=== PATIENT | female | born 1940 | race Caucasian/White ===

== ENCOUNTER 2016-09-02 16:51 | Inpatient (IN) | payer OTHER ==
[~2016-09-02] VITALS: Ht 175.3 cm; Wt 82.7 kg
[~2016-09-02 16:51] MED LIST: CALC-281; CHOL100010 PO; CYCL0.052; FLAX10007; LEVO88TA3; LISI-461; MTRCR45 TD; MULT-188 PO; MULT-884 PO; NRN100; OMG3
[2016-09-02] MEDS ORDERED: HYDROmorphone INJ 0.5 MG/0.5 ML SYR IV STA (17:20)
[2016-09-02] MEDS ORDERED: SODIUM CHLORIDE 0.9% 500ML 500 ML IV STA (17:20)
[2016-09-02] MEDS ORDERED: ONDANSETRON INJ 2 MG/ML 2 ML VIAL IV STA (17:20)
--- NOTE | 2016-09-02 17:30 | EMERGENCY ROOM VISIT NOTE ---
History Report prepared by Lizette: Madelin Figueroa Under the Supervision of: Dr. Radha Grissom M.D. First contact with patient: 17:08 Chief Complaint: VOMITING Stated Complaint: VOMITING History of Present Illness The patient is a 76 year old female who presents to the Emergency Room with complaints of persistent nausea and vomiting throughout the day today. She also had 3 episodes of diarrhea this morning. Currently, she has diffuse abdominal pain. The patient had similar symptoms 2 days ago for which she was evaluated in the [facility] emergency room. She had blood work, and EKG, and received 2 bags of fluid before being discharged from the ED. She was told that she would need an EGD in the future. She felt well yesterday but her symptoms returned today. She denies any blood in her stool or vomit. The patient still has her gallbladder. Her has not been ill with similar symptoms. The patient does not think that she has a GI virus, as she has had similar symptoms for several years on occasion but is usually able to control her symptoms. She does not have a history of diabetes, heart disease, or kidney disease, other than kidney stones. Denies chest pain, shortness of breath, or other complaints. Source of History: patient Onset: today Position: other (GI) Quality: other (vomiting) Timing: other (persistent) Associated Symptoms: + abdominal pain, + diarrhea, No SOB, No chest pain Review of Systems See HPI for pertinent positives & negatives. A total of 10 systems reviewed and were otherwise negative. Past Medical & Surgical Medical Problems: (1) Kidney stone (2) Lyme disease Family History No pertinent family history stated. Social History Smoking Status: Never Smoker Marital Status: Housing Status: lives with family Occupation Status: retired Current/Historical Medications Scheduled Aspirin (Aspirin Chewable), 81 MG PO MONTHLY Calcium Citrate-Vitamin D (Calcium Citrate W/Vitamin), DAILY Cyclosporine (Ophth) (Restasis), 1 DROP BID Levothyroxine Sodium (Levothyroxine Sodium), 88 MCG DAILY Lisinopril (Lisinopril), 10 MG DAILY Metronidazole Hcl (Metronidazole), 1 APPLN TD DAILY Multiple Vitamin (Multi Vitamin Daily), 1 TAB PO DAILY Multiple Vitamins W/ Minerals (Ocuvite), 1 TAB PO DAILY Probiotic Product (Probiotic), 1 CAP PO DAILY Scheduled PRN Ondansetron (Ondansetron HCl), 4 MG PO Q6 PRN for Nausea Allergies Coded Allergies: Morphine (Verified Allergy, Intermediate, RASH, 09/02/16) Hives Iodinated Diagnostic Agents (Verified Allergy, Unknown, RASH, 09/02/16) Latex1 -Allergic Contact Dermititis (Verified Allergy, Unknown, HIVES, ) Physical Exam Vital Signs Date Time Temp Pulse Resp B/P Pulse Ox O2 Delivery O2 Flow Rate FiO2 09/02/16 18:58 62 15 151/94 98 Room Air 09/02/16 17:49 78 09/02/16 16:55 36.9 96 18 174/87 95 Room Air Physical Exam Vital signs reviewed. General: Well-appearing 76 year old female, in no significant distress. HEENT: No scleral icterus, PERRLA, neck supple. Atraumatic. Cardiovascular: Regular rate and rhythm, no extra sounds. Pulmonary: Clear to auscultation bilaterally, normal work of breathing. Abdomen: Soft, epigastric abdominal tenderness, nondistended, positive bowel sounds. Musculoskeletal: Atraumatic, no peripheral edema. Neurologic: Patient awake alert and oriented x 3, full strength in all 4 extremities. Cranial nerves 2 through 12 grossly intact. Skin: Warm, dry, no rash Medical Decision & Procedures ER Provider Diagnostic Interpretation: X-ray results as stated below per my interpretation and radiologist interpretation. Other radiology results as stated below per my review and radiologist interpretation: CHEST ONE VIEW PORTABLE CLINICAL HISTORY: vomiting COMPARISON STUDY: 10/31/2014 FINDINGS: The heart is enlarged. There is a calcified left lower lobe granuloma. There is a large hiatal hernia. There is no lobar consolidation. There is no overt failure. There is no free intraperitoneal air.[ IMPRESSION: Large hiatal hernia. No evidence of failure. No evidence of focal pulmonary consolidation. Electronically signed by: Jun Francis M.D. 09/02/2016 6:14 PM Dictated Date/Time: 09/02/2016 6:13 PM BILIARY ULTRASOUND CLINICAL HISTORY: Vomiting and epigastric pain. COMPARISON STUDY: No previous studies for comparison. FINDINGS: No focal hepatic masses are visualized. No gallstones are visualized. There is no gallbladder wall thickening. There is no ductal dilatation. The common bile duct measures 5 mm. The pancreas was poorly visualized. The entire body and tail were obscured. There is right-sided hydronephrosis. There is a millimeter right renal cortical cyst. IMPRESSION: 1. Ultrasonographically normal gallbladder. No ductal dilatation 2. Nondiagnostic evaluation of the pancreas 3. Mild right-sided hydronephrosis Electronically signed by: Jun Francis M.D. 09/02/2016 6:58 PM Dictated Date/Time: 09/02/2016 6:[address] ABD/PELVIS IV CONTRAST ONLY CLINICAL HISTORY: Vomiting and epigastric pain. Hepatitis. COMPARISON STUDY: Biliary ultrasound dated 09/02/2016 TECHNIQUE: Following the IV administration of 116 mL of Optiray-320, CT scan of the abdomen and pelvis was performed from the lung bases to the proximal femurs. Images are reviewed in the axial, sagittal, and coronal planes. IV contrast was administered without complication. CT DOSE: 647.42 mGy.cm FINDINGS: Lower chest: There is a large hiatal hernia with a para esophageal component. There is evidence for granulomatous calcifications in the left lower lobe and hilum. Liver: The contrast-enhanced liver is normal in size, contour, and attenuation. There is no intrahepatic biliary ductal dilatation. The hepatic veins and portal veins are patent. Gallbladder: Unremarkable. Spleen: Normal in size and attenuation. Pancreas: No pancreatic masses are visualized. There is infiltration the fat surrounding the pancreatic tail. While this most likely represents acute pancreatitis, diverticulitis of the adjacent proximal descending colon could appear similar. Adrenal glands: Unremarkable. Kidneys: No solid renal masses are visualized. Bilateral parapelvic cysts are suspected Bowel: There is colonic diverticulosis. There is moderate sigmoid wall thickening, likely secondary to peridiverticular muscular hypertrophy. Minimal sigmoid diverticulitis cannot be excluded. As described above, there is infiltration of the fat adjacent the proximal descending colon. The appendix appears normal Peritoneum: There is no free air. There is no ascites. There is a fat-containing umbilical hernia. Vasculature: The abdominal aorta is normal in course and caliber. Adenopathy: None. Pelvic viscera: There are several uterine fibroids several which are calcified Skeletal structures: There are several vertebral body hemangiomas. IMPRESSION: 1. Infiltration of the fat surrounding the pancreatic tail. While this mostly likely represents acute pancreatitis, diverticulitis of the adjacent proximal descending colon could appear similar 2. Extensive sigmoid diverticulosis with bowel wall thickening. Minimal diverticulitis cannot be excluded 3. No evidence of bowel obstruction. No evidence of free air 4. Normal appendix 5. Uterine fibroids 6. Large hiatal hernia with a para esophageal component Electronically signed by: Jun Francis M.D. 09/02/2016 8:34 PM Dictated Date/Time: 09/02/2016 8:25 PM Laboratory Results 09/02/16 17:58 Red Blood Count 4.15, Mean Corpuscular Volume 96.9, Mean Corpuscular Hemoglobin 31.8, Mean Corpuscular Hemoglobin Concent 32.8, Mean Platelet Volume 9.9, Neutrophils (%) (Auto) 67.7, Lymphocytes (%) (Auto) 18.2, Monocytes (%) (Auto) 8.7, Eosinophils (%) (Auto) 4.5, Basophils (%) (Auto) 0.7, Neutrophils # (Auto) 5.72, Lymphocytes # (Auto) 1.54, Monocytes # (Auto) 0.74, Eosinophils # (Auto) 0.38, Basophils # (Auto) 0.06 Test 09/02/16 17:00 09/02/16 17:58 09/02/16 18:08 Urine Color YELLOW Urine Appearance CLEAR (CLEAR) Urine pH 7.0 (4.5-7.5) Urine Specific [place] 1.002 (1.000-1.030) Urine Protein NEG (NEG) Urine Glucose (UA) NEG (NEG) Urine Ketones TRACE (NEG) Urine Occult Blood TRACE (NEG) Urine Nitrite NEG (NEG) Urine Bilirubin NEG (NEG) Urine Urobilinogen NEG (NEG) Urine Leukocyte Esterase SMALL (NEG) Urine WBC (Auto) 1-5 /hpf (0-5) Urine RBC (Auto) 0-4 /hpf (0-4) Urine Hyaline Casts (Auto) 0 /lpf (0-5) Urine Epithelial Cells (Auto) 5-10 /lpf (0-5) Urine Bacteria (Auto) 1+ (NEG) White Blood Count 8.46 K/uL (4.8-10.8) Red Blood Count 4.15 M/uL (4.2-5.4) Hemoglobin 13.2 g/dL (12.0-16.0) Hematocrit 40.2 % (37-47) Mean Corpuscular Volume 96.9 fL (80-100) Mean Corpuscular Hemoglobin 31.8 pg (25-34) Mean Corpuscular Hemoglobin Concent 32.8 g/dl (32-36) Platelet Count 321 K/uL (130-400) Mean Platelet Volume 9.9 fL (7.4-10.4) Neutrophils (%) (Auto) 67.7 % Lymphocytes (%) (Auto) 18.2 % Monocytes (%) (Auto) 8.7 % Eosinophils (%) (Auto) 4.5 % Basophils (%) (Auto) 0.7 % Neutrophils # (Auto) 5.72 K/uL (1.4-6.5) Lymphocytes # (Auto) 1.54 K/uL (1.2-3.4) Monocytes # (Auto) 0.74 K/uL (0.11-0.59) Eosinophils # (Auto) 0.38 K/uL (0-0.5) Basophils # (Auto) 0.06 K/uL (0-0.2) RDW Standard Deviation 47.5 fL (36.4-46.3) RDW Coefficient of Variation 13.3 % (11.5-14.5) Immature Granulocyte % (Auto) 0.2 % Immature Granulocyte # (Auto) 0.02 K/uL (0.00-0.02) Total Bilirubin 0.3 mg/dl (0.2-1) Direct Bilirubin < 0.1 mg/dl (0-0.2) Aspartate Amino Transf (AST/SGOT) 13 U/L (15-37) Alanine Aminotransferase (ALT/SGPT) 16 U/L (12-78) Alkaline Phosphatase 52 U/L (45-117) Total Creatine Kinase 70 U/L (26-192) Creatine Kinase MB 1.5 ng/ml (0.5-3.6) Creatine Kinase MB Ratio 2.1 (0-3.0) Total Protein 6.4 gm/dl (6.4-8.2) Albumin 3.2 gm/dl (3.4-5.0) Bedside Troponin I 0.020 ng/ml (0-0.045) Date/Time Source Procedure Growth Status 09/02/16 17:00 Urine , Clean Catch Urine Culture - Final Escherichia Coli Complete Laboratory results per my review. Medications Administered Medications (Trade) Dose Ordered Sig/[place] Route Start Time Stop Time Status Last Admin Dose Admin Sodium Chloride 500 ml @ 999 mls/hr Q31M STAT IV 1/20/17 17:20 09/02/16 17:50 DC 09/02/16 18:00 999 MLS/HR Sodium Chloride (Nss 1000ml) 1,000 ml @ 125 mls/hr Q8H STAT IV 09/02/16 17:20 09/02/16 23:19 DC 09/02/16 18:30 125 MLS/HR Ondansetron HCl (Zofran Inj) 4 mg NOW STAT IV 09/02/16 17:20 09/02/16 17:26 DC 09/02/16 17:59 4 MG Hydromorphone HCl (Dilaudid Inj) 0.5 mg NOW STAT IV 09/02/16 17:20 09/02/16 17:26 DC 09/02/16 17:59 0.5 MG Diphenhydramine HCl (Benadryl Inj) 50 mg NOW STAT IV 09/02/16 19:03 09/02/16 19:05 DC 09/02/16 19:14 50 MG Methylprednisolone Sodium Succinate (Solu-Medrol IV) 125 mg NOW STAT IV 09/02/16 19:03 09/02/16 19:05 DC 09/02/16 19:14 125 MG ECG Indication: vomiting Rate (beats per minute): 80 Rhythm: normal sinus Findings: no acute ischemic change, no ectopy ED Course 1717: The patient was evaluated in room B8. A complete history and physical examination was performed. 1720: Ordered Dilaudid Inj 0.5 mg IV, Zofran Inj 4 mg IV, NSS 1000 ml @ 125 mls/ hr IV, NSS 500 ml @ 999 mls/hr IV. 3: Ordered Solu-Medrol 125 mg IV, Benadryl Inj 50 mg IV. 5: I reassessed the patient and updated her on results so far. 2023: I discussed the case with Dr. Bishnu Vizcaino [facility]. The patient will be evaluated for further management. 2030: Upon reevaluation, the patient is resting comfortably. I discussed laboratory and radiographic results with the patient. She verbalized agreement of the treatment plan. Medical Decision Differential diagnosis: Etiologies such as gastroenteritis, food borne illness, infections, appendicitis , diverticulitis, inflammatory bowel disease, obstruction, GI bleed, biliary pathology, as well as others were entertained. This pt was evaluated and appeared to be in no distress. IV access was obtained and lab work was drawn. PT was placed on the telephone services sales representative. She was hydrated with NSS and given IV dilaudid and zofran. Pt was medicated with IV solumedral and IV benadryl pre-CT for her allergy to IV contrast. Lab work reveals elevated lipase of 9058. CT was significant for infiltration of the pancreas. She was informed of the findings and will be evaluated by the hospitalist service for admission and further management. Consults Time Called: 2010 Consulting Physician: Dr. Bishnu Vizcaino [facility] Returned Call: 2023 I discussed the case with him. The patient will be evaluated for further management. Impression Primary Impression: Acute pancreatitis Additional Impression: Hiatal hernia Scribe Attestation The scribe's documentation has been prepared under my direction and personally reviewed by me in its entirety. I confirm that the note above accurately reflects all work, treatment, procedures, and medical decision making performed by me. Departure Information Dispostion Being Evaluated By Hospitalist Referrals ,Rob Cline M.D. (PCP) Patient Instructions My [facility] Problem Qualifiers Primary Impression: Acute pancreatitis Pancreatitis type: idiopathic Acute pancreatitis complication: unspecified Qualified Codes: K85.00 - Idiopathic acute pancreatitis without necrosis or infection
[2016-09-02] MEDS: SODIUM CHLORIDE 0.9% 1000ML 1,000 ML IV STA ×2 (18:00→18:30)
--- NOTE | 2016-09-02 18:15 | DIAGNOSTIC IMAGING REPORT ---
CHEST ONE VIEW PORTABLE CLINICAL HISTORY: vomiting COMPARISON STUDY: 10/31/2014 FINDINGS: The heart is enlarged. There is a calcified left lower lobe granuloma. There is a large hiatal hernia. There is no lobar consolidation. There is no overt failure. There is no free intraperitoneal air.[ IMPRESSION: Large hiatal hernia. No evidence of failure. No evidence of focal pulmonary consolidation. Electronically signed by: Jun Francis M.D. 09/02/2016 6:14 PM Dictated Date/Time: 09/02/2016 6:13 PM
[2016-09-02 18:16] LABS: BASO % 0.7 %; BASO ABS # 0.06 K/uL (0-0.2); COMPLETE YES; EOS % 4.5 %; HEMATOCRIT 40.2 % (37-47); IG% 0.2 %; LYMPH % 18.2 %; LYMPH ABS # 1.54 K/uL (1.2-3.4); MEAN CELL VOLUME 96.9 fL (80-100); MEAN CORPUSCULAR HEMOGLOBIN 31.8 pg (25-34); MEAN CORPUSCULAR HGB CONC 32.8 g/dl (32-36); MEAN PLATELET VOLUME 9.9 fL (7.4-10.4); MONO % 8.7 %; NEUT % 67.7 %; PLATELET COUNT 321 K/uL (130-400); RED BLOOD COUNT 4.15 M/uL (4.2-5.4); WHITE BLOOD COUNT 8.46 K/uL (4.8-10.8)
[2016-09-02 18:36] LABS: BLOOD UREA NITROGEN 15 mg/dl (7-18); CREATININE 0.58 mg/dl (0.60-1.20); GLUCOSE 148 mg/dl (70-99)
[2016-09-02 18:37] LABS: ALT/SGPT 16 U/L (12-78); BUN/CREATININE RATIO 25.9 (10-20); CALCIUM 8.9 mg/dl (8.5-10.1); CARBON DIOXIDE 24 mmol/L (21-32); CHLORIDE 108 mmol/L (98-107); POTASSIUM 3.5 mmol/L (3.5-5.1); SODIUM 144 mmol/L (136-145)
[2016-09-02 18:40] LABS: ALKALINE PHOSPHATASE 52 U/L (45-117); AST/SGOT 13 U/L (15-37); CKMB/CK RATIO 2.1 (0-3.0)
--- NOTE | 2016-09-02 19:00 | DIAGNOSTIC IMAGING REPORT ---
BILIARY ULTRASOUND CLINICAL HISTORY: Vomiting and epigastric pain. COMPARISON STUDY: No previous studies for comparison. FINDINGS: No focal hepatic masses are visualized. No gallstones are visualized. There is no gallbladder wall thickening. There is no ductal dilatation. The common bile duct measures 5 mm. The pancreas was poorly visualized. The entire body and tail were obscured. There is right-sided hydronephrosis. There is a millimeter right renal cortical cyst. IMPRESSION: 1. Ultrasonographically normal gallbladder. No ductal dilatation 2. Nondiagnostic evaluation of the pancreas 3. Mild right-sided hydronephrosis Electronically signed by: Jun Francis M.D. 09/02/2016 6:58 PM Dictated Date/Time: 09/02/2016 6:56 PM
[2016-09-02] MEDS ORDERED: METHYLPREDNISOLONE 125 MG VIAL IV STA (19:03)
[2016-09-02] MEDS ORDERED: DiphenhydrAMINE HCL 50 MG/ML VIAL IV STA (19:03)
[2016-09-02 19:10] LABS: URINE APPEARANCE CLEAR (CLEAR); URINE BILIRUBIN NEG (NEG); URINE COLOR YELLOW; URINE NITRITE NEG (NEG); URINE SPECIFIC GRAVITY 1.002 (1.000-1.030); UROBILINOGEN NEG (NEG); ZZUR CULT IF INDIC CLEAN CATCH YES
[2016-09-02 19:14] LABS: MANUAL MICROSCOPIC REQUIRED? NO; REVIEW REQ? NO
[2016-09-02] MEDS ORDERED: OPTIRAY 320 IV PRN (19:15)
--- NOTE | 2016-09-02 20:36 | DIAGNOSTIC IMAGING REPORT ---
CT ABD/PELVIS IV CONTRAST ONLY CLINICAL HISTORY: Vomiting and epigastric pain. Hepatitis. COMPARISON STUDY: Biliary ultrasound dated 09/02/2016 TECHNIQUE: Following the IV administration of 116 mL of Optiray-320, CT scan of the abdomen and pelvis was performed from the lung bases to the proximal femurs. Images are reviewed in the axial, sagittal, and coronal planes. IV contrast was administered without complication. CT DOSE: 647.42 mGy.cm FINDINGS: Lower chest: There is a large hiatal hernia with a para esophageal component. There is evidence for granulomatous calcifications in the left lower lobe and hilum. Liver: The contrast-enhanced liver is normal in size, contour, and attenuation. There is no intrahepatic biliary ductal dilatation. The hepatic veins and portal veins are patent. Gallbladder: Unremarkable. Spleen: Normal in size and attenuation. Pancreas: No pancreatic masses are visualized. There is infiltration the fat surrounding the pancreatic tail. While this most likely represents acute pancreatitis, diverticulitis of the adjacent proximal descending colon could appear similar. Adrenal glands: Unremarkable. Kidneys: No solid renal masses are visualized. Bilateral parapelvic cysts are suspected Bowel: There is colonic diverticulosis. There is moderate sigmoid wall thickening, likely secondary to peridiverticular muscular hypertrophy. Minimal sigmoid diverticulitis cannot be excluded. As described above, there is infiltration of the fat adjacent the proximal descending colon. The appendix appears normal Peritoneum: There is no free air. There is no ascites. There is a fat-containing umbilical hernia. Vasculature: The abdominal aorta is normal in course and caliber. Adenopathy: None. Pelvic viscera: There are several uterine fibroids several which are calcified Skeletal structures: There are several vertebral body hemangiomas. IMPRESSION: 1. Infiltration of the fat surrounding the pancreatic tail. While this mostly likely represents acute pancreatitis, diverticulitis of the adjacent proximal descending colon could appear similar 2. Extensive sigmoid diverticulosis with bowel wall thickening. Minimal diverticulitis cannot be excluded 3. No evidence of bowel obstruction. No evidence of free air 4. Normal appendix 5. Uterine fibroids 6. Large hiatal hernia with a para esophageal component Electronically signed by: Jun Francis M.D. 09/02/2016 8:34 PM Dictated Date/Time: 09/02/2016 8:25 PM
[2016-09-02] MEDS ORDERED: ALUMINUM/MAGNESIUM/SIMETH (MAALOX MAX) 30 ML UDC PO PRN (20:45)
[2016-09-02] MEDS ORDERED: POLYETHYLENE (MIRALAX) 17 GM PACK PO PRN (20:45)
[2016-09-02] MEDS ORDERED: HYDROmorphone INJ 1 MG/ML SYR IV PRN (20:45)
[2016-09-02] MEDS ORDERED: ONDANSETRON INJ 2 MG/ML 2 ML VIAL IV PRN (20:45)
[2016-09-02] MEDS ORDERED: ACETAMINOPHEN 325 MG TAB PO PRN (20:45)
[2016-09-02] MEDS ORDERED: MAGNESIUM HYDROXIDE SUSP 30 ML UDC PO PRN (20:45)
[2016-09-02] MEDS ORDERED: MISCCAP80 PO (20:51)
[2016-09-02] MEDS ORDERED: ONDA4TAB9 PO (20:51)
[2016-09-02] MEDS ORDERED: ASPCH81X PO (20:51)
--- NOTE | 2016-09-02 20:51 | History and Physical ---
History & Physical Date & Time of Service: Sep 02, 2016 at 20:40 Chief Complaint: Vomiting Primary Care Physician: Rob Mayers M.D. History of Present Illness Source: patient 76 y/o F Hx HTN, HPL - the pt presented to [facility] with symptoms of nausea and abdominal pain and was treated symptomatically and D/Cd from the ER. Her symptoms worsened and she presented to [facility] for evaluation. She c/o moderate to severe upper abdominal pain, nausea and vomiting. She denies diarrhea, CP, SOB, fevers, dysuria. On further questioning she states that she has been having episodes of similar symptoms for 2 years and she normally treats herself by abstaining form food and increasing fluid intake for a couple of days. Past Medical/Surgical History Medical Problems: (1) Kidney stone Status: Chronic (2) Lyme disease Status: Chronic Social History Smoking Status: Never Smoker Marital Status: Occupational Status: retired Allergies Coded Allergies: Morphine (Verified Allergy, Intermediate, RASH, 09/02/16) Hives Iodinated Diagnostic Agents (Verified Allergy, Unknown, RASH, 09/02/16) Latex1 -Allergic Contact Dermititis (Verified Allergy, Unknown, HIVES, ) Home Medications Scheduled Aspirin (Aspirin Chewable), 81 MG PO MONTHLY Calcium Citrate-Vitamin D (Calcium Citrate W/Vitamin), DAILY Cyclosporine (Ophth) (Restasis), 1 DROP BID Levothyroxine Sodium (Levothyroxine Sodium), 88 MCG DAILY Lisinopril (Lisinopril), 10 MG DAILY Metronidazole Hcl (Metronidazole), 1 APPLN TD DAILY Multiple Vitamin (Multi Vitamin Daily), 1 TAB PO DAILY Multiple Vitamins W/ Minerals (Ocuvite), 1 TAB PO DAILY Probiotic Product (Probiotic), 1 CAP PO DAILY Scheduled PRN Ondansetron (Ondansetron HCl), 4 MG PO Q6 PRN for Nausea Review of Systems Constitutional: No chills, No fever, No sweats Eyes: No eye pain, No worsening of vision ENT: No hearing loss, No nasal symptoms, No unusual epistaxis Respiratory: No cough, No sputum, No wheezing Cardiovascular: No PND, No chest pain, No orthopnea Abdomen: + nausea, + pain, + vomiting Musculoskeletal: No joint pain, No muscle pain Genitourinary - Female: No dysuria, No hematuria, No urinary frequency, No urinary incontinence, No urinary retention, No urinary urgency Neurologic: No memory loss, No paralysis, No weakness Psychiatric: No depression symptoms Endocrine: No fatigue Hematologic / Lymphatic: No abnormal bleeding/bruising Integumentary: No rash Allergic / Immunologic: No environmental allergies Physical Exam Vital Signs Date Time Temp Pulse Resp B/P Pulse Ox O2 Delivery O2 Flow Rate FiO2 09/02/16 18:58 62 15 151/94 98 Room Air 09/02/16 17:49 78 09/02/16 16:55 36.9 96 18 174/87 95 Room Air General Appearance: WD/WN, no apparent distress Head: normocephalic, atraumatic Eyes: normal inspection, PERRL, EOMI ENT: normal ENT inspection, hearing grossly normal, TMs normal, pharynx normal Neck: supple, no adenopathy, thyroid normal, no JVD Respiratory/Chest: chest non-tender, lungs clear, normal breath sounds, no respiratory distress, no accessory muscle use Cardiovascular: regular rate, rhythm, no edema, no gallop Abdomen/GI: soft, + tenderness (Diffuse upper abdominal tenderness - no guarding) Back: normal inspection, no CVA tenderness Extremities/Musculoskelatal: normal inspection, no calf tenderness, normal capillary refill, no pedal edema, normal range of motion 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, no motor/sensory deficits, alert, normal mood/affect, normal reflexes, oriented x 3 Skin: normal color, warm/dry, no rash Lymphatic: no adenopathy Diagnostics Laboratory Results Results Past 24 Hours Test 09/02/16 17:00 09/02/16 17:58 09/02/16 18:08 Range/Units Urine Color YELLOW Urine Appearance CLEAR CLEAR Urine pH 7.0 4.5-7.5 Urine Specific [place] 1.002 1.000-1.030 Urine Protein NEG NEG Urine Glucose (UA) NEG NEG Urine Ketones TRACE NEG Urine Occult Blood TRACE NEG Urine Nitrite NEG NEG Urine Bilirubin NEG NEG Urine Urobilinogen NEG NEG Urine Leukocyte Esterase SMALL NEG Urine WBC (Auto) 1-5 0-5 /hpf Urine RBC (Auto) 0-4 0-4 /hpf Urine Hyaline Casts (Auto) 0 0-5 /lpf Urine Epithelial Cells (Auto) 5-10 0-5 /lpf Urine Bacteria (Auto) 1+ NEG White Blood Count 8.46 4.8-10.8 K/uL Red Blood Count 4.15 4.2-5.4 M/uL Hemoglobin 13.2 12.0-16.0 g/dL Hematocrit 40.2 37-47 % Mean Corpuscular Volume 96.9 80-100 fL Mean Corpuscular Hemoglobin 31.8 25-34 pg Mean Corpuscular Hemoglobin Concent 32.8 32-36 g/dl Platelet Count 321 130-400 K/uL Mean Platelet Volume 9.9 7.4-10.4 fL Neutrophils (%) (Auto) 67.7 % Lymphocytes (%) (Auto) 18.2 % Monocytes (%) (Auto) 8.7 % Eosinophils (%) (Auto) 4.5 % Basophils (%) (Auto) 0.7 % Neutrophils # (Auto) 5.72 1.4-6.5 K/uL Lymphocytes # (Auto) 1.54 1.2-3.4 K/uL Monocytes # (Auto) 0.74 0.11-0.59 K/uL Eosinophils # (Auto) 0.38 0-0.5 K/uL Basophils # (Auto) 0.06 0-0.2 K/uL RDW Standard Deviation 47.5 36.4-46.3 fL RDW Coefficient of Variation 13.3 11.5-14.5 % Immature Granulocyte % (Auto) 0.2 % Immature Granulocyte # (Auto) 0.02 0.00-0.02 K/uL Sodium Level 144 136-145 mmol/L Potassium Level 3.5 3.5-5.1 mmol/L Chloride Level 108 98-107 mmol/L Carbon Dioxide Level 24 21-32 mmol/L Anion Gap 12.0 3-11 mmol/L Blood Urea Nitrogen 15 7-18 mg/dl Creatinine 0.58 0.60-1.20 mg/dl Est Creatinine Clear Calc Drug Dose 93.4 ml/min Estimated GFR () 103.0 Estimated GFR (Non- 88.9 BUN/Creatinine Ratio 25.9 10-20 Random Glucose 148 70-99 mg/dl Calcium Level 8.9 8.5-10.1 mg/dl Magnesium Level 2.0 1.8-2.4 mg/dl Total Bilirubin 0.3 0.2-1 mg/dl Direct Bilirubin < 0.1 0-0.2 mg/dl Aspartate Amino Transf (AST/SGOT) 13 15-37 U/L Alanine Aminotransferase (ALT/SGPT) 16 12-78 U/L Alkaline Phosphatase 52 45-117 U/L Total Creatine Kinase 70 26-192 U/L Creatine Kinase MB 1.5 0.5-3.6 ng/ml Creatine Kinase MB Ratio 2.1 0-3.0 Total Protein 6.4 6.4-8.2 gm/dl Albumin 3.2 3.4-5.0 gm/dl Lipase 9058 73-393 U/L Bedside Troponin I 0.020 0-0.045 ng/ml Microbiology Results 09/02/16 Urine Culture, Received Pending Impression Assessment and Plan 76 y/o F Hx HTN, HPL - the pt presented to [facility] with symptoms of nausea and abdominal pain and was treated symptomatically and D/Cd from the ER. Her symptoms worsened and she presented to [facility] for evaluation. She c/o moderate to severe upper abdominal pain, nausea and vomiting. She denies diarrhea, CP, SOB, fevers, dysuria. 1) Pancreatitis - no clear etiology - Pt will be kept NPO, provided with IVF, pain control and antiemetics as needed - currently there does not appear to be evidence of obstruction however she states that she has had similar episodes over the past 2 years so that we will consult GI for what may be chronic or recurrent pancreatitis 2) HTN - Cont Lisinopril 3) HPL - Normally takes fish oil - held pending improvement 4) Hypothyroid - cont Synthroid Full code - heparin prophylaxis Total time for this admit including med rec - review of labs, imaging, previous records - discussion with ER MD and pt - 32 min Level of Care Med/Surg Resuscitation Status FULL RESUSCITATION VTE Prophylaxis VTE Risk Assessment Done? Y/N: Yes Risk Level: Low Given or contraindicated: Unfractionated heparin SQ
[2016-09-02] MEDS ORDERED: NON-FORMULARY MEDICATION (Cyclosporine (Ophth) (Restasis) 1 DROP) SCH (21:00)
[2016-09-02] MEDS: GABAPENTIN 100 MG CAP PO SCH (21:00)
[2016-09-02] MEDS ORDERED: LORAZEPAM 2 MG/ML 1 ML VIAL IV STA (21:31)
[2016-09-02] MEDS ORDERED: LORAZEPAM INJ 0.5 MG in SYRINGE 0.75 ML IV ONE (22:30)
[2016-09-02 22:43] VITALS: BP 161/81; PULSE 71; TEMP 36.5; O2SAT 91; Ht 175.3 cm; Wt 82.7 kg
[2016-09-02 23:21] VITALS: BP 144/83; PULSE 73; TEMP 36.3; O2SAT 92
[2016-09-02] MEDS: NSS + 20MEQ KCL 1000ML 1,000 ML IV SCH (23:33)
[2016-09-03 01:03] LABS: PROTHROMBIN TIME (PATIENT) 10.4 SECONDS (9.0-12.0)
[2016-09-03] MEDS: HEPARIN SOD 5000 UNIT/0.5 ML CARP SQ SCH ×3 (06:00→20:32)
[2016-09-03] MEDS: LEVOTHYROXINE 88 MCG TAB PO SCH (06:19)
[2016-09-03 07:18] VITALS: BP 141/83; PULSE 65; TEMP 36.3; O2SAT 97
[2016-09-03 07:43] LABS: PROTHROMBIN TIME (PATIENT) 10.7 SECONDS (9.0-12.0)
[2016-09-03] MEDS: NSS + 20MEQ KCL 1000ML 1,000 ML IV SCH (07:50)
[2016-09-03] MEDS: LISINOPRIL 10 MG TAB PO SCH (07:51)
[2016-09-03] MEDS: GABAPENTIN 100 MG CAP PO SCH ×2 (07:52→20:28)
[2016-09-03] MEDS ORDERED: INFLUENZA VIRUS QUAD VACCINE 0.5 ML SYR IM. ONE (08:00)
[2016-09-03] MEDS ORDERED: INFLUENZA ADMINISTRATION CHARGE ONE (08:00)
[2016-09-03] MEDS ORDERED: PNEUMOCOCCAL ADMINISTRATION CHARGE ONE (08:00)
[2016-09-03] MEDS ORDERED: PNEUMOCOCCAL POLYSACCHARIDES 25 MCG/0.5 ML VIAL/SYR IM. ONE (08:00)
[2016-09-03 08:03] LABS: BUN/CREATININE RATIO 19.4 (10-20); CALCIUM 9.3 mg/dl (8.5-10.1); CREATININE 0.53 mg/dl (0.60-1.20); POTASSIUM 4.3 mmol/L (3.5-5.1)
--- NOTE | 2016-09-03 13:25 | Hospitalist Progress Note ---
Hospitalist Progress Note Date of Service Sep 03, 2016. Subjective Pt evaluation today including: conversation w/ patient, conversation w/ family , physical exam, chart review, lab review, review of studies, review of inpatient medication list overnight doing ok, no acute events, no nausea, no vomiting. Objective Vital Signs Date Time Temp Pulse Resp B/P Pulse Ox O2 Delivery O2 Flow Rate FiO2 09/03/16 08:00 Room Air 09/03/16 07:18 36.3 65 20 141/83 97 09/03/16 00:00 Room Air 09/02/16 23:21 36.3 73 18 144/83 92 Room Air 09/02/16 22:43 36.5 71 18 161/81 91 Room Air 09/02/16 21:40 67 16 164/88 97 Room Air 09/02/16 18:58 62 15 151/94 98 Room Air 09/02/16 17:49 78 09/02/16 16:55 36.9 96 18 174/87 95 Room Air Physical Exam General Appearance: no apparent distress Eyes: normal inspection ENT: normal ENT inspection Neck: supple Respiratory/Chest: chest non-tender, normal breath sounds Cardiovascular: regular rate, rhythm, no edema Abdomen: normal bowel sounds, non tender Extremities: normal range of motion Neurologic/Psychiatric: no motor/sensory deficits Skin: normal color Laboratory Results Last 24 Hours Test 09/02/16 17:00 09/02/16 17:58 09/02/16 18:08 09/03/16 07:22 Urine Color YELLOW Urine Appearance CLEAR Urine pH 7.0 Urine Specific [place] 1.002 Urine Protein NEG Urine Glucose (UA) NEG Urine Ketones TRACE Urine Occult Blood TRACE Urine Nitrite NEG Urine Bilirubin NEG Urine Urobilinogen NEG Urine Leukocyte Esterase SMALL Urine WBC (Auto) 1-5 /hpf Urine RBC (Auto) 0-4 /hpf Urine Hyaline Casts (Auto) 0 /lpf Urine Epithelial Cells (Auto) 5-10 /lpf Urine Bacteria (Auto) 1+ White Blood Count 8.46 K/uL Red Blood Count 4.15 M/uL Hemoglobin 13.2 g/dL Hematocrit 40.2 % Mean Corpuscular Volume 96.9 fL Mean Corpuscular Hemoglobin 31.8 pg Mean Corpuscular Hemoglobin Concent 32.8 g/dl Platelet Count 321 K/uL Mean Platelet Volume 9.9 fL Neutrophils (%) (Auto) 67.7 % Lymphocytes (%) (Auto) 18.2 % Monocytes (%) (Auto) 8.7 % Eosinophils (%) (Auto) 4.5 % Basophils (%) (Auto) 0.7 % Neutrophils # (Auto) 5.72 K/uL Lymphocytes # (Auto) 1.54 K/uL Monocytes # (Auto) 0.74 K/uL Eosinophils # (Auto) 0.38 K/uL Basophils # (Auto) 0.06 K/uL RDW Standard Deviation 47.5 fL RDW Coefficient of Variation 13.3 % Immature Granulocyte % (Auto) 0.2 % Immature Granulocyte # (Auto) 0.02 K/uL Prothrombin Time 10.4 SECONDS 10.7 SECONDS Prothromb Time International Ratio 1.0 1.0 Sodium Level 144 mmol/L 143 mmol/L Potassium Level 3.5 mmol/L 4.3 mmol/L Chloride Level 108 mmol/L 108 mmol/L Carbon Dioxide Level 24 mmol/L 24 mmol/L Anion Gap 12.0 mmol/L 11.0 mmol/L Blood Urea Nitrogen 15 mg/dl 10 mg/dl Creatinine 0.58 mg/dl 0.53 mg/dl Est Creatinine Clear Calc Drug Dose 93.4 ml/min 102.2 ml/min Estimated GFR () 103.0 106.1 Estimated GFR (Non- 88.9 91.6 BUN/Creatinine Ratio 25.9 19.4 Random Glucose 148 mg/dl 117 mg/dl Calcium Level 8.9 mg/dl 9.3 mg/dl Magnesium Level 2.0 mg/dl 2.0 mg/dl Total Bilirubin 0.3 mg/dl Direct Bilirubin < 0.1 mg/dl Aspartate Amino Transf (AST/SGOT) 13 U/L Alanine Aminotransferase (ALT/SGPT) 16 U/L Alkaline Phosphatase 52 U/L Total Creatine Kinase 70 U/L Creatine Kinase MB 1.5 ng/ml Creatine Kinase MB Ratio 2.1 Total Protein 6.4 gm/dl Albumin 3.2 gm/dl Lipase 9058 U/L 344 U/L Bedside Troponin I 0.020 ng/ml Assessment and Plan patient is 76 y/o F with PMH of HTN who presented to ER with symptoms of nausea and abdominal pain. She was found to have acute pancreatitis. 1 Pancreatitis - no history of gallbladder stone, no history of alcohol abuse. no clear etiology - pain is improving, start diet as tolerant, pain control and antiemetics as needed. Since patient states she has similar episodes during the past two years, would like to consult GI before discharge. 2) HTN - stable, Cont Lisinopril 3) HPL - Normally takes fish oil - held pending improvement 4) Hypothyroid - stable, cont Synthroid Full code DVT prophylaxis: heparin
[2016-09-03 15:15] VITALS: BP 159/79; PULSE 71; TEMP 36.5; O2SAT 97
[2016-09-03 16:02] VITALS: O2SAT 97
--- NOTE | 2016-09-03 16:08 | Medical Consult ---
Consultation Note Consultation Note Reason for consult: pancreatitis HPI: 76 yo female in [place] until mon, when she developed abrupt onset of severe upper abd pain rad to R shoulder and both flanks, assoc with intractable n/v. Pain lastsed 5 hours, seen at [facility] and [facility] with pancreatitis, then discharged with plans for outpt f/u. She had recurrence of pain on Monday, and was hosp here. Lipase markedly elevated on admission, CT showed pancreatitis of tail. She was given fluids, bowel rest, and analgesia overnight, and her pain is largely resolved. She is parisa clears and passing loose stool at present. She reports a h/o recurrent episodes of pain over the past 2 years occurring about once a month and lasting several hours. These episodes may be progressing. She denies alcohol or tobacco use. She has no FH gall stones. She has no FH panc ca. Past Medical/Surgical History Medical Problems: (1) Kidney stone Status: Chronic (2) Lyme disease Status: Chronic Social History Smoking Status: Never Smoker Marital Status: Occupational Status: retired Allergies Coded Allergies: Morphine (Verified Allergy, Intermediate, RASH, 09/02/16) Hives Iodinated Diagnostic Agents (Verified Allergy, Unknown, RASH, 09/02/16) Latex1 -Allergic Contact Dermititis (Verified Allergy, Unknown, HIVES, ) Home Medications Scheduled Aspirin (Aspirin Chewable), 81 MG PO MONTHLY Calcium Citrate-Vitamin D (Calcium Citrate W/Vitamin), DAILY Cyclosporine (Ophth) (Restasis), 1 DROP BID Levothyroxine Sodium (Levothyroxine Sodium), 88 MCG DAILY Lisinopril (Lisinopril), 10 MG DAILY Metronidazole Hcl (Metronidazole), 1 APPLN TD DAILY Multiple Vitamin (Multi Vitamin Daily), 1 TAB PO DAILY Multiple Vitamins W/ Minerals (Ocuvite), 1 TAB PO DAILY Probiotic Product (Probiotic), 1 CAP PO DAILY Scheduled PRN Ondansetron (Ondansetron HCl), 4 MG PO Q6 PRN for Nausea Review of Systems Constitutional: No chills, No fever, No sweats Eyes: No eye pain, No worsening of vision ENT: No hearing loss, No nasal symptoms, No unusual epistaxis Respiratory: No cough, No sputum, No wheezing Cardiovascular: No PND, No chest pain, No orthopnea Abdomen: + nausea, + pain, + vomiting Musculoskeletal: No joint pain, No muscle pain Genitourinary - Female: No dysuria, No hematuria, No urinary frequency, No urinary incontinence, No urinary retention, No urinary urgency Neurologic: No memory loss, No paralysis, No weakness Psychiatric: No depression symptoms Endocrine: No fatigue Hematologic / Lymphatic: No abnormal bleeding/bruising Integumentary: No rash Allergic / Immunologic: No environmental allergies Physical Ex - H&P Physical Exam Vital Signs Vital Signs Past 12 Hours Date Time Temp Pulse Resp B/P Pulse Ox O2 Delivery O2 Flow Rate FiO2 09/03/16 15:15 36.5 71 18 159/79 97 Room Air 09/03/16 08:00 Room Air 09/03/16 07:18 36.3 65 20 141/83 97 General Appearance: WD/WN, no apparent distress, sitting by empty lunch tray Head: normocephalic, atraumatic Eyes: normal inspection, PERRL, EOMI ENT: normal ENT inspection, hearing grossly normal, TMs normal, pharynx normal Neck: supple, no adenopathy, thyroid normal, no JVD Respiratory/Chest: chest non-tender, lungs clear, normal breath sounds, no respiratory distress, no accessory muscle use Cardiovascular: regular rate, rhythm, no edema, no gallop Abdomen/GI: soft, non tender Back: normal inspection, no CVA tenderness Extremities/Musculoskelatal: normal inspection, no calf tenderness, normal capillary refill, no pedal edema, normal range of motion 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, no motor/sensory deficits, alert, normal mood/affect, normal reflexes, oriented x 3 Skin: normal color, warm/dry, no rash Lymphatic: no adenopathy Diagnostics - H&P Diagnostics Laboratory Results Last 24 Hours Test 09/02/16 17:00 09/02/16 17:58 09/02/16 18:08 09/03/16 07:22 Urine Color YELLOW Urine Appearance CLEAR Urine pH 7.0 Urine Specific [place] 1.002 Urine Protein NEG Urine Glucose (UA) NEG Urine Ketones TRACE Urine Occult Blood TRACE Urine Nitrite NEG Urine Bilirubin NEG Urine Urobilinogen NEG Urine Leukocyte Esterase SMALL Urine WBC (Auto) 1-5 /hpf Urine RBC (Auto) 0-4 /hpf Urine Hyaline Casts (Auto) 0 /lpf Urine Epithelial Cells (Auto) 5-10 /lpf Urine Bacteria (Auto) 1+ White Blood Count 8.46 K/uL Red Blood Count 4.15 M/uL Hemoglobin 13.2 g/dL Hematocrit 40.2 % Mean Corpuscular Volume 96.9 fL Mean Corpuscular Hemoglobin 31.8 pg Mean Corpuscular Hemoglobin Concent 32.8 g/dl Platelet Count 321 K/uL Mean Platelet Volume 9.9 fL Neutrophils (%) (Auto) 67.7 % Lymphocytes (%) (Auto) 18.2 % Monocytes (%) (Auto) 8.7 % Eosinophils (%) (Auto) 4.5 % Basophils (%) (Auto) 0.7 % Neutrophils # (Auto) 5.72 K/uL Lymphocytes # (Auto) 1.54 K/uL Monocytes # (Auto) 0.74 K/uL Eosinophils # (Auto) 0.38 K/uL Basophils # (Auto) 0.06 K/uL RDW Standard Deviation 47.5 fL RDW Coefficient of Variation 13.3 % Immature Granulocyte % (Auto) 0.2 % Immature Granulocyte # (Auto) 0.02 K/uL Prothrombin Time 10.4 SECONDS 10.7 SECONDS Prothromb Time International Ratio 1.0 1.0 Sodium Level 144 mmol/L 143 mmol/L Potassium Level 3.5 mmol/L 4.3 mmol/L Chloride Level 108 mmol/L 108 mmol/L Carbon Dioxide Level 24 mmol/L 24 mmol/L Anion Gap 12.0 mmol/L 11.0 mmol/L Blood Urea Nitrogen 15 mg/dl 10 mg/dl Creatinine 0.58 mg/dl 0.53 mg/dl Est Creatinine Clear Calc Drug Dose 93.4 ml/min 102.2 ml/min Estimated GFR () 103.0 106.1 Estimated GFR (Non- 88.9 91.6 BUN/Creatinine Ratio 25.9 19.4 Random Glucose 148 mg/dl 117 mg/dl Calcium Level 8.9 mg/dl 9.3 mg/dl Magnesium Level 2.0 mg/dl 2.0 mg/dl Total Bilirubin 0.3 mg/dl Direct Bilirubin < 0.1 mg/dl Aspartate Amino Transf (AST/SGOT) 13 U/L Alanine Aminotransferase (ALT/SGPT) 16 U/L Alkaline Phosphatase 52 U/L Total Creatine Kinase 70 U/L Creatine Kinase MB 1.5 ng/ml Creatine Kinase MB Ratio 2.1 Total Protein 6.4 gm/dl Albumin 3.2 gm/dl Lipase 9058 U/L 344 U/L Bedside Troponin I 0.020 ng/ml Ultrasound FINDINGS: No focal hepatic masses are visualized. No gallstones are visualized. There is no gallbladder wall thickening. There is no ductal dilatation. The common bile duct measures 5 mm. The pancreas was poorly visualized. The entire body and tail were obscured. There is right-sided hydronephrosis. There is a millimeter right renal cortical cyst. IMPRESSION: 1. Ultrasonographically normal gallbladder. No ductal dilatation 2. Nondiagnostic evaluation of the pancreas 3. Mild right-sided hydronephrosis CT: Infiltration of the fat surrounding the pancreatic tail. While this mostly likely represents acute pancreatitis, diverticulitis of the adjacent proximal descending colon could appear similar 2. Extensive sigmoid diverticulosis with bowel wall thickening. Minimal diverticulitis cannot be excluded 3. No evidence of bowel obstruction. No evidence of free air 4. Normal appendix 5. Uterine fibroids 6. Large hiatal hernia with a para esophageal component A/P: Upper abdominal pain Lipase - Her clinical presentation, elevated lipase, and imaging findings are diagnostic for pancreatitis, although she has no clear risk factors for this condition. Her symptoms are largely resolved, and she seems ok for dc once she is parisa PO. DDX includes biliary disease and structural abnormality like divisum , as well as uncommon causes of pancreatitis - hypertrigs, AIP, celiac sprue, medication induced pancreatitis (this seems unlikely - Lisinopril is considered a Class 3 drug regarding pancreatitis). Her h/o recurrent pain suggests biliary disease, despite normal uls and LFTs. Can pursue outpt MRCP and EUS, and check serologies for above as outpt. I don't think that it is necessary to hold lisinopril on dc. - She appears to have a large complex hiatal hernia. It is possible, or even likely, that her recurrent episodes of pain are secondary to paraesophageal hernia, rather than recurrent pancreatitis or biliary disease. Of note, hiatal hernias can occasionally involve the pancreas - this is an obscure cause of pancreatitis. Will work this up further as an outpt, with UGIS and chest CT. Will arrange for outpt f/u. Call with questions.
[2016-09-04 00:09] VITALS: BP 165/81; PULSE 71; TEMP 36.8; O2SAT 96
[2016-09-04] MEDS: HEPARIN SOD 5000 UNIT/0.5 ML CARP SQ SCH (06:27)
[2016-09-04] MEDS: LEVOTHYROXINE 88 MCG TAB PO SCH (06:27)
[2016-09-04] MEDS: GABAPENTIN 100 MG CAP PO SCH (07:15)
[2016-09-04] MEDS: LISINOPRIL 10 MG TAB PO SCH (07:16)
[2016-09-04 07:19] VITALS: BP 166/82; PULSE 59; TEMP 36.3; O2SAT 99
--- NOTE | 2016-09-04 09:42 | Discharge Instructions ---
Discharge Instructions Admission Reason for Admission: Acute Pancreatitis Discharge Discharge Diagnosis / Problem: acute pancreatitis Discharge Goals Goal(s): Decrease discomfort, Improve function, Increase independence, Improve disease control, Improve nutritional status, Learn about illness, Diagnostic testing, Therapeutic intervention Activity Recommendations Activity Limitations: resume your previous activity . Instructions / Follow-Up Instructions / Follow-Up please f/u your PCP in one week please f/u GI doctor in 2 to 3 weeks if you have nausea, vomiting, abdominal pain, please call your PCP or go to ER. Current Hospital Diet Patient's current hospital diet: AHA Diet (Heart Healthy) Discharge Diet Recommended Diet: AHA Diet (Heart Healthy) Pending Studies Studies pending at discharge: no Medical Emergencies . Who to Call and When: Medical Emergencies: If at any time you feel your situation is an emergency, please call 911 immediately. . Non-Emergent Contact Non-Emergency issues call your: Primary Care Provider . . "Provider Documentation" section prepared by Vashti Hahn. VTE Core Measure Inpt VTE Proph given/why not?: Unfractionated heparin SQ
--- NOTE | 2016-09-04 09:46 | Discharge Summary ---
Discharge Summary Admission Date: Sep 02, 2016 at 20:37 Discharge Date: Sep 04, 2016 Discharge Disposition: Home Principal Diagnosis: acute pancreatitis Problems/Secondary Diagnoses: HTN Medication Reconciliation Continued Medications: Aspirin (Aspirin Chewable) 81 Mg Chew 81 MG PO MONTHLY Calcium Citrate-Vitamin D (Calcium Citrate W/Vitamin) 1 Tab Tab DAILY Cyclosporine (Ophth) (Restasis) 0.05 % Emu 1 DROP BID, #60 Levothyroxine Sodium (Levothyroxine Sodium) 88 Mcg Tab 88 MCG DAILY, #90 Lisinopril (Lisinopril) 10 Mg Tab 10 MG DAILY, #90 Metronidazole Hcl (Metronidazole) 135 Appln/45 Gm Cr 1 APPLN TD DAILY, #45 Multiple Vitamin (Multi Vitamin Daily) 1 Tab Tab 1 TAB PO DAILY Multiple Vitamins W/ Minerals (Ocuvite) 1 Tab Tab 1 TAB PO DAILY Ondansetron (Ondansetron HCl) 4 Mg Tab 4 MG PO Q6 PRN for Nausea, #30 Probiotic Product (Probiotic) 1 Cap Cap 1 CAP PO DAILY Discharge Exam patient is seen and examed on the day of discharge, no nausea, no vomiting, no abdominal pain, can tolerant food. patient is stable to discharge to home. Physical Exam: General Appearance: no apparent distress Eyes: normal inspection ENT: hearing grossly normal Neck: supple, no JVD Respiratory/Chest: chest non-tender, lungs clear, normal breath sounds Cardiovascular: regular rate, rhythm, no edema Abdomen / GI: normal bowel sounds, non tender, soft Extremities: normal inspection Neurologic/Psychiatric: no motor/sensory deficits, oriented x 3 Skin: normal color Lymphatic: no adenopathy Hospital Course patient is 76 y/o F with PMH of HTN who presented to ER with symptoms of nausea and abdominal pain. She was found to have acute pancreatitis. 1 Pancreatitis - presented with nausea, abdominal pain, lipase above 9000, CT of abdomen showed acute pancreatitis. no history of gallbladder stone, no history of alcohol abuse. no clear etiology , NPO, pain control and antiemetics as needed, pain resolved in second day, can tolerant diet. Since patient states she has similar episodes during the past two years, would like f/u GI as outpatient. 2) HTN - stable, Cont Lisinopril 3) HPL - Normally takes fish oil, f/u PCP 4) Hypothyroid - stable, cont Synthroid Total Time Spent: Less than 30 minutes This includes examination of the patient, discharge planning, medication reconciliation, and communication with other providers. Discharge Instructions Please refer to the electronic Patient Visit Report (Discharge Instructions) for additional information. Additional Copies To Rob Mayers M.D.
[2016-09-04 10:06] VITALS: BP 166/82; PULSE 59; TEMP 36.3; O2SAT 99
== END 2016-09-04 10:30 | disposition home or self-care (01) | DRG 440 ==
LOC: ENRESERVTM → ENRESERVDT → C.EDB 16:54 → C.MS2W 20:37
PROVIDERS: ADMIT Internal Medicine; ATTEND Internal Medicine
DX: K85.90 Acute pancreatitis without necrosis or infection, unspecified (principal); I10 Essential (primary) hypertension; E03.9 Hypothyroidism, unspecified; D25.9 Leiomyoma of uterus, unspecified; K57.30 Diverticulosis of large intestine without perforation or abscess without bleeding; K44.9 Diaphragmatic hernia without obstruction or gangrene; Z79.82 Long term (current) use of aspirin; Z87.442 Personal history of urinary calculi; Z88.5 Allergy status to narcotic agent; Z91.040 Latex allergy status; Z91.041 Radiographic dye allergy status

== ENCOUNTER → 2016-09-07 | Outpatient (CLI) | payer OTHER ==
[~2016-09-07] MED LIST changes: +ASPCH81X PO; +BIOTCAP2 PO; -CHOL100010 PO; +CRAN1TAB PO; +CYAN10005 PO; +FISH1CAP8 PO; -FLAX10007; +LUTE6TAB PO; +METR0.754 TOP; +MISCCAP80 PO; -NRN100; +OMEG10007 PO; -OMG3; +ONDA4TAB9 PO
[2016-09-07 15:16] LABS: BASO % 0.7 %; BASO ABS # 0.05 K/uL (0-0.2); COMPLETE YES; EOS % 2.3 %; HEMATOCRIT 42.7 % (37-47); IG% 0.1 %; LYMPH % 36.3 %; LYMPH ABS # 2.57 K/uL (1.2-3.4); MEAN CORPUSCULAR HEMOGLOBIN 32.1 pg (25-34); MEAN CORPUSCULAR HGB CONC 33.5 g/dl (32-36); MEAN PLATELET VOLUME 10.1 fL (7.4-10.4); MONO % 7.3 %; NEUT % 53.3 %; PLATELET COUNT 383 K/uL (130-400); RED BLOOD COUNT 4.45 M/uL (4.2-5.4); WHITE BLOOD COUNT 7.08 K/uL (4.8-10.8)
[2016-09-07 15:26] LABS: ALT/SGPT 25 U/L (12-78); AMYLASE 39 U/L (25-115); BLOOD UREA NITROGEN 11 mg/dl (7-18); BUN/CREATININE RATIO 17.1 (10-20); CALCIUM 9.1 mg/dl (8.5-10.1); CARBON DIOXIDE 28 mmol/L (21-32); CHLORIDE 104 mmol/L (98-107); CREATININE 0.66 mg/dl (0.60-1.20); GLUCOSE 81 mg/dl (70-99); POTASSIUM 4.3 mmol/L (3.5-5.1); SODIUM 141 mmol/L (136-145); TRIGLYCERIDES 95 mg/dl (0-150)
[2016-09-07 15:37] LABS: ALB/GLOB RATIO 1.2 (0.9-2); ALKALINE PHOSPHATASE 43 U/L (45-117); AST/SGOT 21 U/L (15-37)
== END | disposition home or self-care (01) ==
LOC: C.LAB1850 13:34
PROVIDERS: ATTEND Internal Medicine
DX: K85.90 Acute pancreatitis without necrosis or infection, unspecified (principal)

== ENCOUNTER 2017-01-27 01:46 | Inpatient (IN) | payer OTHER ==
[~2017-01-27] VITALS: Ht 154.9 cm; Wt 78.5 kg
[~2017-01-27 01:46] MED LIST changes: -BIOTCAP2 PO; -CRAN1TAB PO; -CYAN10005 PO; -FISH1CAP8 PO; -LUTE6TAB PO; -METR0.754 TOP; -OMEG10007 PO
[2017-01-27] MEDS ORDERED: ONDANSETRON INJ 2 MG/ML 2 ML VIAL IV STA (02:12)
[2017-01-27] MEDS ORDERED: HYDROmorphone INJ 1 MG/ML SYR IV STA (02:12)
--- NOTE | 2017-01-27 02:17 | EMERGENCY ROOM VISIT NOTE ---
History Report prepared by Lizette: Adam Garcia Under the Supervision of: Dr. Dagmar Rooney D.O. First contact with patient: 02:00 Chief Complaint: ILLNESS Stated Complaint: SICK History of Present Illness The patient is a 76 year old female who presents to the Emergency Room with complaints of intermittent vomiting that began 8 hours ago. She states that she has had this same problem since August of this year. She was here for 3 days due to frequent episodes of vomiting. She was diagnosed with pancreatitis. She states that she has had dozens of episodes since then, but this most recent one has been extremely bad. She is currently experiencing abdominal pain, nausea, and chest pain. She denies any leg cramping, leg edema, fever, chills, cough, and shortness of breath. She does not drink alcohol or smoke tobacco products. She still has her gallbladder. She has a past medical history of a hiatal hernia. Source of History: patient Onset: 8 hours ago Position: other (GI) Symptom Intensity: severe Quality: other (Emesis) Timing: intermittent Associated Symptoms: + chest pain, + nausea, + abdominal pain, No fevers, No chills, No cough, No SOB Note: She denies any leg cramping or edema. Review of Systems See HPI for pertinent positives & negatives. A total of 10 systems reviewed and were otherwise negative. Past Medical & Surgical Medical Problems: (1) Acute recurrent pancreatitis (2) Kidney stone (3) Lyme disease Family History Omitted secondary to age. Social History Smoking Status: Never Smoker Smokeless Tobacco Use: No Alcohol Use: none Drug Use: none Marital Status: Housing Status: lives with family Occupation Status: retired Current/Historical Medications Scheduled Aspirin (Aspirin Chewable), 81 MG PO WEEKLY Biotin (Biotin 5000), 5 MG PO DAILY Cranberry (Vaccinium Macrocarp (Cranberry), 125 MG PO DAILY Cyanocobalamin (Vitamin B-12), 1,000 MCG PO DAILY Cyclosporine (Ophth) (Restasis), 1 DROP BID Fish Oil ([place]-3), 1 CAP PO DAILY Fish Oil-Krill Oil (Krill Oil Plus), 1 CAP PO DAILY Levothyroxine Sodium (Levothyroxine Sodium), 88 MCG DAILY Lisinopril (Lisinopril), 10 MG DAILY Lutein-Zeaxanthin (Lutein W/Zeaxanthin), 1 TAB PO DAILY Metronidazole (Topical) (Metrocream), 1 APPLN TOP DAILY Multiple Vitamin (Multi Vitamin Daily), 1 TAB PO DAILY Multiple Vitamins W/ Minerals (Ocuvite), 1 TAB PO DAILY Probiotic Product (Probiotic), 1 CAP PO DAILY Allergies Coded Allergies: Morphine (Verified Allergy, Intermediate, RASH, 09/02/16) Hives Iodinated Diagnostic Agents (Verified Allergy, Unknown, RASH, 09/02/16) Latex1 -Allergic Contact Dermititis (Verified Allergy, Unknown, HIVES, ) Physical Exam Vital Signs Date Time Temp Pulse Resp B/P (MAP) Pulse Ox O2 Delivery O2 Flow Rate FiO2 01/27/17 03:36 77 01/27/17 03:28 78 18 92/62 94 Room Air 01/27/17 01:50 36.7 115 19 119/86 93 Room Air Physical Exam HEENT: Head - normocephalic and atraumatic Pupils are equal, round, and reactive to light. Extraocular eye muscles are intact, and sclera are anicteric. Nose - moist nasal mucosa without discharge. Mouth - moist buccal mucosa. Oropharynx is nonerythematous and there is no tonsillar exudate or edema noted. Neck: Supple; no JVD, nuchal rigidity, cervical lymphadenopathy. Heart: Regular rate and rhythm. There is a normal S1 and S2 with no murmurs, clicks, or gallops appreciated. Lungs: Clear to auscultation bilaterally with no wheezes, rales, or rhonchi. Abdomen: Soft, diffusely tender, nondistended, with good bowel sounds. There are no palpable pulsatile masses or hepatosplenomegaly. There is no guarding, rigidity, or rebound noted. Extremities: No evidence of cyanosis, clubbing, or edema. There are easily palpable peripheral pulses. Skin: warm and dry with good turgor and no rashes. Medical Decision & Procedures Laboratory Results 01/27/17 02:25 Red Blood Count 4.74, Mean Corpuscular Volume 96.0, Mean Corpuscular Hemoglobin 30.6, Mean Corpuscular Hemoglobin Concent 31.9, Mean Platelet Volume 9.3, Neutrophils (%) (Auto) 87.2, Lymphocytes (%) (Auto) 6.4, Monocytes (%) (Auto) 5.4, Eosinophils (%) (Auto) 0.4, Basophils (%) (Auto) 0.3, Neutrophils # (Auto) 10.26, Lymphocytes # (Auto) 0.75, Monocytes # (Auto) 0.63, Eosinophils # (Auto) 0.05, Basophils # (Auto) 0.04 01/27/17 02:25 Test 01/27/17 02:25 01/27/17 03:15 White Blood Count 11.76 K/uL (4.8-10.8) Red Blood Count 4.74 M/uL (4.2-5.4) Hemoglobin 14.5 g/dL (12.0-16.0) Hematocrit 45.5 % (37-47) Mean Corpuscular Volume 96.0 fL (80-100) Mean Corpuscular Hemoglobin 30.6 pg (25-34) Mean Corpuscular Hemoglobin Concent 31.9 g/dl (32-36) Platelet Count 445 K/uL (130-400) Mean Platelet Volume 9.3 fL (7.4-10.4) Neutrophils (%) (Auto) 87.2 % Lymphocytes (%) (Auto) 6.4 % Monocytes (%) (Auto) 5.4 % Eosinophils (%) (Auto) 0.4 % Basophils (%) (Auto) 0.3 % Neutrophils # (Auto) 10.26 K/uL (1.4-6.5) Lymphocytes # (Auto) 0.75 K/uL (1.2-3.4) Monocytes # (Auto) 0.63 K/uL (0.11-0.59) Eosinophils # (Auto) 0.05 K/uL (0-0.5) Basophils # (Auto) 0.04 K/uL (0-0.2) RDW Standard Deviation 44.0 fL (36.4-46.3) RDW Coefficient of Variation 12.5 % (11.5-14.5) Immature Granulocyte % (Auto) 0.3 % Immature Granulocyte # (Auto) 0.03 K/uL (0.00-0.02) Red Blood Cell Morphology Unremarkable Anion Gap 9.0 mmol/L (3-11) Est Creatinine Clear Calc Drug Dose 78.4 ml/min Estimated GFR () 103.6 Estimated GFR (Non- 89.4 BUN/Creatinine Ratio 30.5 (10-20) Calcium Level 8.8 mg/dl (8.5-10.1) Total Bilirubin 0.5 mg/dl (0.2-1) Direct Bilirubin 0.1 mg/dl (0-0.2) Aspartate Amino Transf (AST/SGOT) 13 U/L (15-37) Alanine Aminotransferase (ALT/SGPT) 20 U/L (12-78) Alkaline Phosphatase 48 U/L (45-117) Troponin I < 0.015 ng/ml (0-0.045) Total Protein 6.8 gm/dl (6.4-8.2) Albumin 3.5 gm/dl (3.4-5.0) Lipase 9760 U/L (73-393) Urine Color YELLOW Urine Appearance CLEAR (CLEAR) Urine pH 5.0 (4.5-7.5) Urine Specific [place] 1.024 (1.000-1.030) Urine Protein 3+ (NEG) Urine Glucose (UA) NEG (NEG) Urine Ketones 4+ (NEG) Urine Occult Blood 2+ (NEG) Urine Nitrite NEG (NEG) Urine Bilirubin NEG (NEG) Urine Urobilinogen NEG (NEG) Urine Leukocyte Esterase NEG (NEG) Urine WBC (Auto) 10-30 /hpf (0-5) Urine RBC (Auto) 0-4 /hpf (0-4) Urine Hyaline Casts (Auto) 1-5 /lpf (0-5) Urine Epithelial Cells (Auto) 0-5 /lpf (0-5) Urine Bacteria (Auto) 1+ (NEG) Urine Mucus PRESENT (NONE PRSENT) Urine Yeast (Auto) PRESENT (NONE PRSENT) Laboratory results per my review. Medications Administered Medications (Trade) Dose Ordered Sig/[place] Route Start Time Stop Time Status Last Admin Dose Admin Hydromorphone HCl (Dilaudid Inj) 1 mg NOW STAT IV 01/27/17 02:12 01/27/17 02:14 DC 01/27/17 02:36 1 MG Ondansetron HCl (Zofran Inj) 4 mg NOW STAT IV 01/27/17 02:12 01/27/17 02:14 DC 01/27/17 02:36 4 MG Sodium Chloride 1,000 ml @ 999 mls/hr Q1H1M STAT IV 01/27/17 03:23 01/27/17 04:23 DC 01/27/17 03:30 999 MLS/HR Sodium Chloride 1,000 ml @ 250 mls/hr Q4H STAT IV 01/27/17 03:23 01/27/17 05:56 DC 01/27/17 04:36 250 MLS/HR Procedure Zofran Inj 4 mg IV Dilaudid Inj 1 mg IV Sodium Chloride 1000 ml @ 250 mls/hr IV Sodium Chloride 1000 ml @ 999 mls/hr IV. ECG Indication: other (Fever) Rate (beats per minute): 89 Rhythm: normal sinus Findings: no acute ischemic change, no ectopy ED Course 0200: Past medical records reviewed. The patient was evaluated in room B9. A complete history and physical exam was performed. An IV lock was initiated and labs were drawn as above. 0212: Ordered Zofran Inj 4 mg IV, Dilaudid Inj 1 mg IV 0220: At this time, I reviewed an office note from Dr. Mayers from 12/09/16. There was mention of the patient's significant hiatal hernia and the need for surgery. 0323: Ordered Sodium Chloride 1000 ml @ 250 mls/hr IV, Sodium Chloride 1000 ml @ 999 mls/hr IV. 0330: The patient feels much better after her pain and nausea medications. Upon reevaluation, I discussed findings and results with her. She verbalized agreement of the treatment plan. I spoke with Dr. Grialdo of the [facility] Hospitalist Service. The patient will be evaluated for further management and care. 0349: I reassessed the patient. She is comfortable. Medical Decision The patient is a 76 year old female who presents to the ED with episodes of vomiting. Differential diagnosis includes pancreatitis, gastritis, gastroenteritis, dehydration, and Boerhaave syndrome. I attest that I have personally reviewed the patient's current medication list. Patient was found to have normal blood pressure on screening and does not require follow-up. Laboratory Results Showed: White Blood Cell count of 11.7, stable H&H, normal renal function, glucose 162, normal LFTs, Lipase 9760, urinalysis 4+ ketones and 2+ blood. This is a 76-year-old female patient who had violent intractable vomiting at home. Over the past 6 months, she's had approximately 10-12 episodes of sudden onset of vomiting. The patient has a history of pancreatitis. Laboratory showed the patient had a lipase near 10,000. Her exam and laboratory studies were concerning for an acute episode of pancreatitis. Her pain was under control at this time. I discussed the case with the hospitalist and they will evaluate for further management. Consults Time Called: [phone] Consulting Physician: Dr. Giraldo - [facility] Returned Call: [phone] He will be evaluating the patient for further management and care. Impression Primary Impression: Pancreatitis Scribe Attestation The scribe's documentation has been prepared under my direction and personally reviewed by me in its entirety. I confirm that the note above accurately reflects all work, treatment, procedures, and medical decision making performed by me. Departure Information Dispostion Being Evaluated By Hospitalist Referrals ,Rob Cline M.D. (PCP) Patient Instructions [facility]
[2017-01-27 02:48] LABS: HEMATOCRIT 45.5 % (37-47); MEAN CORPUSCULAR HEMOGLOBIN 30.6 pg (25-34); MEAN CORPUSCULAR HGB CONC 31.9 g/dl (32-36); MEAN PLATELET VOLUME 9.3 fL (7.4-10.4); PLATELET COUNT 445 K/uL (130-400); RED BLOOD COUNT 4.74 M/uL (4.2-5.4); WHITE BLOOD COUNT 11.76 K/uL (4.8-10.8)
[2017-01-27 03:07] LABS: BASO % 0.3 %; BASO ABS # 0.04 K/uL (0-0.2); COMPLETE YES; EOS % 0.4 %; IG% 0.3 %; LYMPH % 6.4 %; LYMPH ABS # 0.75 K/uL (1.2-3.4); MONO % 5.4 %; NEUT % 87.2 %
[2017-01-27 03:10] LABS: ALT/SGPT 20 U/L (12-78); AST/SGOT 13 U/L (15-37); BLOOD UREA NITROGEN 17 mg/dl (7-18); BUN/CREATININE RATIO 30.5 (10-20); CALCIUM 8.8 mg/dl (8.5-10.1); CARBON DIOXIDE 24 mmol/L (21-32); CHLORIDE 110 mmol/L (98-107); CREATININE 0.57 mg/dl (0.60-1.20); GLUCOSE 162 mg/dl (70-99); POTASSIUM 3.9 mmol/L (3.5-5.1); SODIUM 143 mmol/L (136-145)
[2017-01-27] MEDS ORDERED: CYAN10005 PO (03:10)
[2017-01-27] MEDS ORDERED: BIOTCAP2 PO (03:11)
[2017-01-27] MEDS ORDERED: METR0.754 TOP (03:12)
[2017-01-27] MEDS ORDERED: CRAN1TAB PO (03:13)
[2017-01-27] MEDS ORDERED: FISH1CAP8 PO (03:14)
[2017-01-27 03:15] LABS: ALKALINE PHOSPHATASE 48 U/L (45-117)
[2017-01-27] MEDS ORDERED: LUTE6TAB PO (03:15)
[2017-01-27] MEDS ORDERED: OMEG10007 PO (03:17)
[2017-01-27] MEDS ORDERED: SODIUM CHLORIDE 0.9% 1000ML 1,000 ML IV STA ×2 (03:23)
[2017-01-27 03:46] LABS: URINE APPEARANCE CLEAR (CLEAR); URINE BILIRUBIN NEG (NEG); URINE COLOR YELLOW; URINE EPITHELIAL CELL AUTO 0-5 /lpf (0-5); URINE NITRITE NEG (NEG); URINE SPECIFIC GRAVITY 1.024 (1.000-1.030); UROBILINOGEN NEG (NEG)
[2017-01-27 03:52] LABS: MANUAL MICROSCOPIC REQUIRED? NO; REVIEW REQ? YES
[2017-01-27 04:22] LABS: URINE MUCUS PRESENT (NONE PRSENT)
[2017-01-27] MEDS ORDERED: ONDANSETRON INJ 2 MG/ML 2 ML VIAL IV PRN (04:30)
[2017-01-27 05:49] VITALS: BP 125/71; PULSE 64; TEMP 36.4; O2SAT 95; Ht 154.9 cm; Wt 78.5 kg
[2017-01-27] MEDS ORDERED: PIPERACILL/TAZOBAC IV 3.375 GM in DEXTROSE 5% 100ML IV STA (05:54)
[2017-01-27] MEDS ORDERED: PIPERACILL/TAZOBAC IV 3.375 GM in DEXTROSE 5% 100ML 100 ML IV SCH (06:00)
[2017-01-27] MEDS ORDERED: PIPERACILL/TAZOBAC CONSULT ACTIVE PRN (06:00)
[2017-01-27] MEDS: NSS + 20MEQ KCL 1000ML 1,000 ML IV SCH ×2 (06:23→16:16)
[2017-01-27] MEDS: LEVOTHYROXINE 88 MCG TAB PO SCH (06:30)
[2017-01-27 07:20] VITALS: BP 106/63; PULSE 65; TEMP 36.5; O2SAT 96
[2017-01-27] MEDS ORDERED: HYDROmorphone INJ 0.5 MG/0.5 ML SYR IV PRN (07:30)
[2017-01-27 08:00] VITALS: O2SAT 96
[2017-01-27] MEDS ORDERED: PNEUMOCOCCAL ADMINISTRATION CHARGE ONE (08:00)
[2017-01-27] MEDS ORDERED: PNEUMOCOCCAL POLYSACCHARIDES 25 MCG/0.5 ML VIAL/SYR IM. ONE (08:00)
--- NOTE | 2017-01-27 08:27 | History and Physical ---
History & Physical Date & Time of Service: Jan 27, 2017 at 08:18 Chief Complaint: Acute Recurrent Pancreatitis Primary Care Physician: Rob Mayers M.D. History of Present Illness Source: patient, spouse The patient is a 76-year-old female who presents to the emergency department complained of intermittent abdominal pain and vomiting that began about 3 hours prior to arrival. These symptoms are similar to her admission in August 2016 when she was diagnosed with pancreatitis. She reports having had dozens of episodes symptoms since that time, but this was the only one bowel movement in the emergency department for assessment. She does have a history of a hiatal hernia which causes some GI distress intermittently. She also still has her gallbladder. She reports no differences in her usual dietary intake may have precipitated the symptoms. Past Medical/Surgical History Medical Problems: (1) Kidney stone Status: Chronic (2) Lyme disease Status: Chronic Social History Smoking Status: Never Smoker Smokeless Tobacco Use: No Alcohol Use: none Drug Use: none Marital Status: Housing status: lives with family Occupational Status: retired Multi-Drug Resistant Organisms History of MDRO: No Allergies Coded Allergies: Morphine (Verified Allergy, Intermediate, RASH, 09/02/16) Hives Iodinated Diagnostic Agents (Verified Allergy, Unknown, RASH, 09/02/16) Latex1 -Allergic Contact Dermititis (Verified Allergy, Unknown, HIVES, ) Home Medications Scheduled Aspirin (Aspirin Chewable), 81 MG PO WEEKLY Biotin (Biotin 5000), 5 MG PO DAILY Cranberry (Vaccinium Macrocarp (Cranberry), 125 MG PO DAILY Cyanocobalamin (Vitamin B-12), 1,000 MCG PO DAILY Cyclosporine (Ophth) (Restasis), 1 DROP BID Fish Oil ([place]-3), 1 CAP PO DAILY Fish Oil-Krill Oil (Krill Oil Plus), 1 CAP PO DAILY Levothyroxine Sodium (Levothyroxine Sodium), 88 MCG DAILY Lisinopril (Lisinopril), 10 MG DAILY Lutein-Zeaxanthin (Lutein W/Zeaxanthin), 1 TAB PO DAILY Metronidazole (Topical) (Metrocream), 1 APPLN TOP DAILY Multiple Vitamin (Multi Vitamin Daily), 1 TAB PO DAILY Multiple Vitamins W/ Minerals (Ocuvite), 1 TAB PO DAILY Probiotic Product (Probiotic), 1 CAP PO DAILY Review of Systems The patient denies chest pain, palpitations, shortness of breath, cough, lower extremity swelling, sore throat, fevers, chills, sweats, pelvic pain, blood in urine or stool, dysuria, urinary frequency or urgency, lightheadedness, dizziness, headache, memory loss, rash, abnormal bruising or bleeding, imbalance , focal or generalized weakness, numbness or tingling in arms or legs, arthralgias or myalgias, back or neck pain, night sweats, or allergy symptoms. The review of systems is otherwise negative other than for that already noted above, and at least 10 systems have been reviewed. Physical Exam Vital Signs Date Time Temp Pulse Resp B/P (MAP) Pulse Ox O2 Delivery O2 Flow Rate FiO2 01/27/17 07:20 36.5 65 16 106/63 (77) 96 Room Air 01/27/17 05:49 36.4 64 15 125/71 95 Room Air 01/27/17 05:20 68 18 106/58 96 01/27/17 04:40 69 18 106/63 96 Room Air 01/27/17 03:36 77 01/27/17 03:28 78 18 92/62 94 Room Air 01/27/17 01:50 36.7 115 19 119/86 93 Room Air The patient is awake, well-developed and adequately nourished, alert and oriented 3, normocephalic and atraumatic, lying in bed and in no acute distress. HEENT--PERRL, EOMI, mucous membranes and oropharynx dry. Neck--supple, no JVD or bruits, thyroid normal, trachea midline, no adenopathy. Heart--normal S1 and S2, no extra beats, no murmurs, rubs or gallops. Lungs--clear bilaterally with good air movement, no respiratory distress, no accessory muscle use. Abdomen--normal bowel sounds and soft, mild nonspecific abdominal pain, nondistended, no hernias or masses. Extremities--no cyanosis, clubbing or edema. There are good distal pulses b/l. Dermatologic--normal skin turgor, normal color, warm and dry, no abnormal lymph nodes, no rash. Neurologic--cranial nerves II through XII grossly intact, motor and sensory examination normal. Rheumatologic--normal range of motion. Psychiatric--normal affect. Diagnostics Laboratory Results Results Past 24 Hours Test 01/27/17 02:25 01/27/17 03:15 Range/Units White Blood Count 11.76 4.8-10.8 K/uL Red Blood Count 4.74 4.2-5.4 M/uL Hemoglobin 14.5 12.0-16.0 g/dL Hematocrit 45.5 37-47 % Mean Corpuscular Volume 96.0 80-100 fL Mean Corpuscular Hemoglobin 30.6 25-34 pg Mean Corpuscular Hemoglobin Concent 31.9 32-36 g/dl Platelet Count 445 130-400 K/uL Mean Platelet Volume 9.3 7.4-10.4 fL Neutrophils (%) (Auto) 87.2 % Lymphocytes (%) (Auto) 6.4 % Monocytes (%) (Auto) 5.4 % Eosinophils (%) (Auto) 0.4 % Basophils (%) (Auto) 0.3 % Neutrophils # (Auto) 10.26 1.4-6.5 K/uL Lymphocytes # (Auto) 0.75 1.2-3.4 K/uL Monocytes # (Auto) 0.63 0.11-0.59 K/uL Eosinophils # (Auto) 0.05 0-0.5 K/uL Basophils # (Auto) 0.04 0-0.2 K/uL RDW Standard Deviation 44.0 36.4-46.3 fL RDW Coefficient of Variation 12.5 11.5-14.5 % Immature Granulocyte % (Auto) 0.3 % Immature Granulocyte # (Auto) 0.03 0.00-0.02 K/uL Red Blood Cell Morphology Unremarkable Sodium Level 143 136-145 mmol/L Potassium Level 3.9 3.5-5.1 mmol/L Chloride Level 110 98-107 mmol/L Carbon Dioxide Level 24 21-32 mmol/L Anion Gap 9.0 3-11 mmol/L Blood Urea Nitrogen 17 7-18 mg/dl Creatinine 0.57 0.60-1.20 mg/dl Est Creatinine Clear Calc Drug Dose 78.4 ml/min Estimated GFR () 103.6 Estimated GFR (Non- 89.4 BUN/Creatinine Ratio 30.5 10-20 Random Glucose 162 70-99 mg/dl Calcium Level 8.8 8.5-10.1 mg/dl Total Bilirubin 0.5 0.2-1 mg/dl Direct Bilirubin 0.1 0-0.2 mg/dl Aspartate Amino Transf (AST/SGOT) 13 15-37 U/L Alanine Aminotransferase (ALT/SGPT) 20 12-78 U/L Alkaline Phosphatase 48 45-117 U/L Troponin I < 0.015 0-0.045 ng/ml Total Protein 6.8 6.4-8.2 gm/dl Albumin 3.5 3.4-5.0 gm/dl Lipase 9760 73-393 U/L Urine Color YELLOW Urine Appearance CLEAR CLEAR Urine pH 5.0 4.5-7.5 Urine Specific [place] 1.024 1.000-1.030 Urine Protein 3+ NEG Urine Glucose (UA) NEG NEG Urine Ketones 4+ NEG Urine Occult Blood 2+ NEG Urine Nitrite NEG NEG Urine Bilirubin NEG NEG Urine Urobilinogen NEG NEG Urine Leukocyte Esterase NEG NEG Urine WBC (Auto) 10-30 0-5 /hpf Urine RBC (Auto) 0-4 0-4 /hpf Urine Hyaline Casts (Auto) 1-5 0-5 /lpf Urine Epithelial Cells (Auto) 0-5 0-5 /lpf Urine Bacteria (Auto) 1+ NEG Urine Mucus PRESENT NONE PRSENT Urine Yeast (Auto) PRESENT NONE PRSENT EKG EKG shows normal sinus rhythm at 89 bpm, no change from August 2016, in no acute ST-T changes. Impression Assessment and Plan Acute recurrent pancreatitis--no imaging studies were ordered by the emergency department. We'll order an MRCP for further assessment. And if necessary we will consult GI for possible ERCP. She'll be kept nothing by mouth except medications, and placed on IV fluids. Zofran 4 mg IV every 6 hours when necessary, morphine sulfate 2-4 mg IV every 2 hours when necessary, Zosyn 3.375 mg IV every 8 hours. We'll follow serial CBC with differential, chemistry profile and amylase lipase. Hypertension--hold lisinopril 10 mg by mouth daily. Hypothyroidism--continue levothyroxine sodium 88 g by mouth daily. All other medications will be held at this time. Level of Care Med/Surg Advanced Directives Existing Advance Directive: No Existing Living Will: No Existing Power of Cutter Hand: No VTE Prophylaxis VTE Risk Assessment Done? Y/N: Yes Risk Level: Moderate Given or contraindicated: SCD's Social Service Consult None Apply
[2017-01-27] MEDS ORDERED: PIPERACILL/TAZOBAC IV 3.375 GM in DEXTROSE 5% 100ML IV SCH (10:00)
[2017-01-27 12:37] LABS: HEMATOCRIT 40.5 % (37-47); MEAN CELL VOLUME 97.4 fL (80-100); MEAN CORPUSCULAR HEMOGLOBIN 31.7 pg (25-34); MEAN CORPUSCULAR HGB CONC 32.6 g/dl (32-36); MEAN PLATELET VOLUME 8.9 fL (7.4-10.4); PLATELET COUNT 335 K/uL (130-400); RED BLOOD COUNT 4.16 M/uL (4.2-5.4); WHITE BLOOD COUNT 8.38 K/uL (4.8-10.8)
[2017-01-27 13:07] LABS: BUN/CREATININE RATIO 22.1 (10-20); CREATININE 0.62 mg/dl (0.60-1.20); POTASSIUM 3.9 mmol/L (3.5-5.1)
[2017-01-27 13:12] LABS: CALCIUM 8.6 mg/dl (8.5-10.1)
--- NOTE | 2017-01-27 13:48 | Hospitalist Progress Note ---
Hospitalist Progress Note Date of Service Jan 27, 2017. Subjective Pt evaluation today including: conversation w/ patient, physical exam, chart review, lab review, review of studies, review of inpatient medication list Patient seen and evaluated. Admitted early this AM for suspected acute pancreatitis with history of multiple attacks in the past. At this time she is having diffuse abdominal pain for retching and no worsening of symptoms with palpation of the abdomen. Reporting an appetite. Plan for MRCP and will need to be NPO x 4 hours at least. Repeat labs obtained this afternoon with lipase improving from 9000 to 1800. Only complaint is the above mentions abdominal pain and dry mouth. Denies nausea or emesis. Constitutional: No fever, No chills ENT: + problem reported (dry mouth) Respiratory: No cough, No shortness of breath Cardiovascular: No chest pain Abdomen: + pain (diffuse "ache" from retching), No nausea, No vomiting, No diarrhea, No constipation Musculoskeletal: No calf pain Female : No dysuria Skin: No rash Medications Current Inpatient Medications Medications (Trade) Dose Ordered Sig/[place] Route Start Time Stop Time Status Last Admin Dose Admin Levothyroxine Sodium (Synthroid Tab) 88 mcg DAILYBB PO 01/27/17 06:30 02/26/17 06:59 Ondansetron HCl (Zofran Inj) 4 mg Q6H PRN IV 01/27/17 04:30 02/26/17 04:29 Potassium Chloride/Sodium Chloride 1,000 ml @ 100 mls/hr Q10H IV 01/27/17 06:00 02/26/17 05:59 01/27/17 06:23 100 MLS/HR Piperacillin Sod/ Tazobactam Sod 3.375 gm/Dextrose 115 ml @ 28.75 mls/ hr Q8H IV 01/27/17 10:00 02/06/17 09:59 01/27/17 10:29 28.75 MLS/HR Piperacillin Sod/ Tazobactam Sod (Consult) 1 ea UD PRN N/A 01/27/17 06:00 02/26/17 05:59 Hydromorphone HCl (Dilaudid Inj) 0.5 mg Q3H PRN IV 01/27/17 07:30 02/10/17 07:29 Objective Vital Signs Date Time Temp Pulse Resp B/P (MAP) Pulse Ox O2 Delivery O2 Flow Rate FiO2 01/27/17 08:00 96 Room Air 01/27/17 07:20 36.5 65 16 106/63 (77) 96 Room Air 01/27/17 05:49 36.4 64 15 125/71 95 Room Air 01/27/17 05:20 68 18 106/58 96 01/27/17 04:40 69 18 106/63 96 Room Air 01/27/17 03:36 77 01/27/17 03:28 78 18 92/62 94 Room Air 01/27/17 01:50 36.7 115 19 119/86 93 Room Air Physical Exam General Appearance: WD/WN, no apparent distress Eyes: sclerae normal ENT: hearing grossly normal Neck: supple, no JVD, trachea midline Respiratory/Chest: lungs clear, normal breath sounds, no respiratory distress, no accessory muscle use Cardiovascular: regular rate, rhythm, no gallop, no murmur Abdomen: normal bowel sounds, non tender, soft, + pertinent finding (no guarding, rigidity, rebound tenderness) Extremities: no pedal edema, no calf tenderness Neurologic/Psychiatric: alert, oriented x 3 Skin: normal color, warm/dry Laboratory Results Last 24 Hours Test 01/27/17 02:25 01/27/17 03:15 01/27/17 12:23 White Blood Count 11.76 K/uL 8.38 K/uL Red Blood Count 4.74 M/uL 4.16 M/uL Hemoglobin 14.5 g/dL 13.2 g/dL Hematocrit 45.5 % 40.5 % Mean Corpuscular Volume 96.0 fL 97.4 fL Mean Corpuscular Hemoglobin 30.6 pg 31.7 pg Mean Corpuscular Hemoglobin Concent 31.9 g/dl 32.6 g/dl Platelet Count 445 K/uL 335 K/uL Mean Platelet Volume 9.3 fL 8.9 fL Neutrophils (%) (Auto) 87.2 % Lymphocytes (%) (Auto) 6.4 % Monocytes (%) (Auto) 5.4 % Eosinophils (%) (Auto) 0.4 % Basophils (%) (Auto) 0.3 % Neutrophils # (Auto) 10.26 K/uL Lymphocytes # (Auto) 0.75 K/uL Monocytes # (Auto) 0.63 K/uL Eosinophils # (Auto) 0.05 K/uL Basophils # (Auto) 0.04 K/uL RDW Standard Deviation 44.0 fL 45.4 fL RDW Coefficient of Variation 12.5 % 12.8 % Immature Granulocyte % (Auto) 0.3 % Immature Granulocyte # (Auto) 0.03 K/uL Red Blood Cell Morphology Unremarkable Sodium Level 143 mmol/L Potassium Level 3.9 mmol/L Chloride Level 110 mmol/L Carbon Dioxide Level 24 mmol/L Anion Gap 9.0 mmol/L Blood Urea Nitrogen 17 mg/dl Creatinine 0.57 mg/dl Est Creatinine Clear Calc Drug Dose 78.4 ml/min Estimated GFR () 103.6 Estimated GFR (Non- 89.4 BUN/Creatinine Ratio 30.5 Random Glucose 162 mg/dl Calcium Level 8.8 mg/dl Total Bilirubin 0.5 mg/dl Direct Bilirubin 0.1 mg/dl Aspartate Amino Transf (AST/SGOT) 13 U/L Alanine Aminotransferase (ALT/SGPT) 20 U/L Alkaline Phosphatase 48 U/L Troponin I < 0.015 ng/ml Total Protein 6.8 gm/dl Albumin 3.5 gm/dl Lipase 9760 U/L Urine Color YELLOW Urine Appearance CLEAR Urine pH 5.0 Urine Specific [place] 1.024 Urine Protein 3+ Urine Glucose (UA) NEG Urine Ketones 4+ Urine Occult Blood 2+ Urine Nitrite NEG Urine Bilirubin NEG Urine Urobilinogen NEG Urine Leukocyte Esterase NEG Urine WBC (Auto) 10-30 /hpf Urine RBC (Auto) 0-4 /hpf Urine Hyaline Casts (Auto) 1-5 /lpf Urine Epithelial Cells (Auto) 0-5 /lpf Urine Bacteria (Auto) 1+ Urine Mucus PRESENT Urine Yeast (Auto) PRESENT Assessment and Plan Acute Recurrent Pancreatitis: - Was hospitalized in August and reports intermittent bouts since that normally resolve by limiting oral intake - Lipase improving from 9000 to 1800 - no elevations of LFTs/Bili - MRCP pending -- MRCP (October) at [facility] - well circumscribed hyperintesne lesion without solid composition, no suspicious contrast enhancement, no pancreatic ductal dilation; noted minimal peripancreatic inflammation - NPO at this time for MRCP - after test can advance diet to clear liquids and advance as tolerated -- Of note - patient follows a gluten-free diet and reports mild intolerance - Currently on Zosyn 3.375 mg IV Q8H - will await imaging and likely D/C - Pending imaging - may need inpatient GI evaluation - was seen by Dr. Bustos in past HTN: STABLE - Lisinopril 10 mg daily on hold Hypothyroidism: - Synthroid 88 mcg daily DVT Prophylaxis: SCDs Code Status: FULL RESUSCITATION Disposition: Await MRCP results - will advance diet as tolerated after imaging - Possible D/C 1-2 days pending response Continued [facility] stay due to: multiple IV medications needed Discharge planning: home
[2017-01-27 16:11] VITALS: O2SAT 96
--- NOTE | 2017-01-27 16:24 | DIAGNOSTIC IMAGING REPORT ---
MRCP HISTORY: RECURRENT PANCREATITIS TECHNIQUE: MRCP the abdomen was performed without the use of intravenous contrast according to standard department protocol COMPARISON STUDY: Abdomen and pelvis CT 09/02/2016. FINDINGS: The lung bases are clear. Large hiatus hernia, unchanged. A 1.4 cm T2 hyperintense lesion within the left hepatic lobe remains unchanged. The gallbladder and spleen are unremarkable. Minimal edema surrounding the pancreatic tail. Multiple bilateral peripelvic renal cysts. No hydronephrosis. No retroperitoneal lymphadenopathy. The common bile duct appears be normal in course and caliber. No filling defects within the common bile duct. No gallstones identified. The main pancreatic duct is not well-visualized due to its small caliber but appears to be unremarkable in the body and head. The main pancreatic duct may be slightly irregular and borderline dilated at the tail. There is a 7 mm cystic focus within the head of the pancreas which may connect to the main pancreatic duct. IMPRESSION: 1. Trace edema surrounding the pancreatic tail. This favors mild acute pancreatitis. 2. The majority of the main pancreatic duct is normal in course and caliber. The pancreatic duct at the tail of the pancreas is borderline dilated and slightly irregular. This may be due to the acute on chronic pancreatitis. 3. The common bile duct is normal in course and caliber. No filling defects within the common bile duct. 4. A 7 mm cystic focus within the head of the pancreas. This favors a small side branch intraductal papillary mucinous neoplasm. One year follow-up can be performed to ensure stability. 5. Additional findings as described above. Electronically signed by: Thomas Charles M.D. 01/27/2017 4:23 PM Dictated Date/Time: 01/27/2017 4:06 PM
--- NOTE | 2017-01-27 17:51 | Gastrointestinal Consultation ---
Gastrointestinal Consultation Date of Consultation: Jan 27, 2017 Attending Physician: Dr. Patrick Trinh Consulting Physician: Dr. Amy Sandoval Reason for Consultation: Pancreatitis History of Present Illness Patient is a 76 year old female patient of Dr. Mayers with a hx of pancreatitis, HTN and a large hiatal hernia is admitted today for acute, recurrent pancreatitis and GI is consulted for the pancreatitis. Her initial episode of pancreatitis was in Aug 2016. She was seen here in consult by Dr Bustos at that time and recovered nicely with IV fluids. She followed up with Dr. Harley afterwards who completed an EGD with a large hiatal hernia. She is unsure if there was any evidence of esophagitis. She does has a long hx of vomiting about once weekly, which occurs after eating, and a severe lower chest/epigastric pressure then is relieved with much belching or with vomiting. Regarding this episode of illness, she experienced an onset of epigastric pain radiating to the back, beginning at 6PM last evening, about 20 minutes after a supper of ham and eggs supper. She began vomiting "over and over." Though she had a few seconds of relief now and then, in general, the pain persisted, quickly escalated, lasted all night long and presented to [facility] ED around 3 AM this morning. On arrival, lipase was elevated at 9760. LFTs were normal as was her creatinine. WBC was mildly elevated at 10. Though Ct was not completed, an MRCP showed evidence of pancreatitis but no biliary ductal dilation. She is seen and examined while she is resting in bed and is awake, alert, oriented. Her is with her. She appears well. When asked about her pain, she tells me that she has sore upper abdomen muscles but no severe pain. She is taking clear liquids well po. She denies drinking any alcohol or ever smoked. She has a gallbladder. Past Medical/Surgical History Medical Problems: (1) Acute pancreatitis Status: Acute (2) Hiatal hernia Status: Acute (3) Pancreatitis Status: Acute Past Medical History: 1. HTN 2. Pancreatitis Past Surgical History: 1. Bunionectomy 2. Tonsillectomy Social History Smoking Status: Never Smoker Alcohol Use: none Drug Use: none Marital Status: Housing Status: lives with family Occupation Status: retired Allergies Coded Allergies: Morphine (Verified Allergy, Intermediate, RASH, 09/02/16) Hives Gluten (Verified Allergy, Mild, GI SYMPTOMS, 01/27/17) Iodinated Diagnostic Agents (Verified Allergy, Unknown, RASH, 09/02/16) Latex1 -Allergic Contact Dermititis (Verified Allergy, Unknown, HIVES, ) Current Medications Home Meds and Scripts Medications Dose Route/Sig Max Daily Dose Days Date Category Dose Instructions [place]-3 (Fish Oil) 1 Ea Cap 1 Cap PO DAILY 01/27/17 Reported Lutein W/Zeaxanthin (Lutein-Zeaxanthin) 1 Tab Tab 1 Tab PO DAILY 01/27/17 Reported Krill Oil Plus (Fish Oil-Krill Oil) 1 Cap Cap 1 Cap PO DAILY 01/27/17 Reported Cranberry (Cranberry (Vaccinium Macrocarp) 125 Mg Tab 125 Mg PO DAILY 01/27/17 Reported Metrocream (Metronidazole (Topical)) 0.75 % Cre 1 Appln TOP DAILY 01/27/17 Reported Biotin 5000 (Biotin) 5 Mg Cap 5 Mg PO DAILY 01/27/17 Reported Vitamin B-12 (Cyanocobalamin) 1,000 Mcg Tab 1,000 Mcg PO DAILY 01/27/17 Reported Aspirin Chewable (Aspirin) 81 Mg Chew 81 Mg PO WEEKLY 09/02/16 Reported EVERY MONDAY Probiotic (Probiotic Product) 1 Cap Cap 1 Cap PO DAILY 09/02/16 Reported Ocuvite (Multiple Vitamins W/ Minerals) 1 Tab Tab 1 Tab PO DAILY 10/31/14 Reported Multi Vitamin Daily (Multiple Vitamin) 1 Tab Tab 1 Tab PO DAILY 10/31/14 Reported Lisinopril 10 Mg Tab 10 Mg DAILY 10/31/14 Reported Levothyroxine Sodium 88 Mcg Tab 88 Mcg DAILY 10/31/14 Reported Restasis (Cyclosporine (Ophth)) 0.05 % Emu 1 Drop BID 10/31/14 Reported Review of Systems Constitutional: No fever, No chills, No sweats, No weight loss, No weakness Eyes: No eye pain, No redness ENT: No sore throat, No trouble swallowing, No pain on swallowing Respiratory: No cough, No wheezing, No shortness of breath, No dyspnea on exertion Cardiac: No chest pain, No edema, No palpitations Abdomen: + see HPI, + pain, + nausea, + vomiting, No diarrhea, No constipation , No GI bleeding, No dysphagia, No jaundice Neuro: No memory loss, No weakness, No numbness/tingling, No vertigo, No balance problems Psych: No depression symptoms, No anxiety, No insomnia Heme: No abnormal bleeding/bruising, No night sweats Endo: No excessive thirst, No excessive urination Skin: No rash, No itch, No new/changing skin lesions, No jaundice Physical Exam Date Time Temp Pulse Resp B/P (MAP) Pulse Ox O2 Delivery O2 Flow Rate FiO2 01/27/17 08:00 96 Room Air 01/27/17 07:20 36.5 65 16 106/63 (77) 96 Room Air 01/27/17 05:49 36.4 64 15 125/71 95 Room Air 01/27/17 05:20 68 18 106/58 96 01/27/17 04:40 69 18 106/63 96 Room Air 01/27/17 03:36 77 01/27/17 03:28 78 18 92/62 94 Room Air 01/27/17 01:50 36.7 115 19 119/86 93 Room Air General Appearance: no apparent distress Eyes: normal inspection, EOMI Neck: supple, no adenopathy, thyroid normal Respiratory/Chest: chest non-tender, lungs clear, normal breath sounds, no accessory muscle use Cardiovascular: regular rate, rhythm, no JVD, no murmur Abdomen: normal bowel sounds, soft, no organomegaly, + tenderness (epigsatric ) Extremities: normal inspection, no pedal edema, normal capillary refill Neurologic/Psych: alert, normal mood/affect, oriented x 3 Skin: normal color, no jaundice, warm/dry, no rash Laboratory Results Last 24 Hours Test 01/27/17 02:25 01/27/17 03:15 01/27/17 12:23 White Blood Count 11.76 K/uL 8.38 K/uL Red Blood Count 4.74 M/uL 4.16 M/uL Hemoglobin 14.5 g/dL 13.2 g/dL Hematocrit 45.5 % 40.5 % Mean Corpuscular Volume 96.0 fL 97.4 fL Mean Corpuscular Hemoglobin 30.6 pg 31.7 pg Mean Corpuscular Hemoglobin Concent 31.9 g/dl 32.6 g/dl Platelet Count 445 K/uL 335 K/uL Mean Platelet Volume 9.3 fL 8.9 fL Neutrophils (%) (Auto) 87.2 % Lymphocytes (%) (Auto) 6.4 % Monocytes (%) (Auto) 5.4 % Eosinophils (%) (Auto) 0.4 % Basophils (%) (Auto) 0.3 % Neutrophils # (Auto) 10.26 K/uL Lymphocytes # (Auto) 0.75 K/uL Monocytes # (Auto) 0.63 K/uL Eosinophils # (Auto) 0.05 K/uL Basophils # (Auto) 0.04 K/uL RDW Standard Deviation 44.0 fL 45.4 fL RDW Coefficient of Variation 12.5 % 12.8 % Immature Granulocyte % (Auto) 0.3 % Immature Granulocyte # (Auto) 0.03 K/uL Red Blood Cell Morphology Unremarkable Sodium Level 143 mmol/L 145 mmol/L Potassium Level 3.9 mmol/L 3.9 mmol/L Chloride Level 110 mmol/L 110 mmol/L Carbon Dioxide Level 24 mmol/L 26 mmol/L Anion Gap 9.0 mmol/L 9.0 mmol/L Blood Urea Nitrogen 17 mg/dl 14 mg/dl Creatinine 0.57 mg/dl 0.62 mg/dl Est Creatinine Clear Calc Drug Dose 78.4 ml/min 72.0 ml/min Estimated GFR () 103.6 100.8 Estimated GFR (Non- 89.4 87.0 BUN/Creatinine Ratio 30.5 22.1 Random Glucose 162 mg/dl 88 mg/dl Calcium Level 8.8 mg/dl 8.6 mg/dl Total Bilirubin 0.5 mg/dl 0.7 mg/dl Direct Bilirubin 0.1 mg/dl Aspartate Amino Transf (AST/SGOT) 13 U/L 12 U/L Alanine Aminotransferase (ALT/SGPT) 20 U/L 15 U/L Alkaline Phosphatase 48 U/L 37 U/L Troponin I < 0.015 ng/ml Total Protein 6.8 gm/dl 6.1 gm/dl Albumin 3.5 gm/dl 3.0 gm/dl Lipase 9760 U/L 1829 U/L Urine Color YELLOW Urine Appearance CLEAR Urine pH 5.0 Urine Specific [place] 1.024 Urine Protein 3+ Urine Glucose (UA) NEG Urine Ketones 4+ Urine Occult Blood 2+ Urine Nitrite NEG Urine Bilirubin NEG Urine Urobilinogen NEG Urine Leukocyte Esterase NEG Urine WBC (Auto) 10-30 /hpf Urine RBC (Auto) 0-4 /hpf Urine Hyaline Casts (Auto) 1-5 /lpf Urine Epithelial Cells (Auto) 0-5 /lpf Urine Bacteria (Auto) 1+ Urine Mucus PRESENT Urine Yeast (Auto) PRESENT Globulin 3.1 gm/dl Albumin/Globulin Ratio 1.0 Impression Patient is a 76 year old female patient with acute, recurrent pancreatitis of unknown etiology. Plan 1. Change IV fluids to LR at 200/hr. 2. DC antibiotics as no clear indication . 3. Continue clear liquids. 4. IGG4 5. OP EUS in 6-8 weeks. 6. Pt is interested in pursuing surgical eval for hiatal hernia repair. She should consider surgery only after full recover from pancreatitis so this should be arranged as an OP.
[2017-01-27] MEDS: LACTATED RINGER'S 1000ML 1,000 ML IV SCH ×2 (19:02→23:37)
[2017-01-27 22:59] VITALS: BP 125/73; PULSE 67; TEMP 36.7; O2SAT 95
[2017-01-28] MEDS: LACTATED RINGER'S 1000ML 1,000 ML IV SCH ×2 (03:44→08:57)
[2017-01-28] MEDS: LEVOTHYROXINE 88 MCG TAB PO SCH (03:46)
[2017-01-28 07:34] LABS: BASO % 1.3 %; BASO ABS # 0.07 K/uL (0-0.2); COMPLETE YES; EOS % 4.1 %; HEMATOCRIT 37.9 % (37-47); IG% 0.2 %; LYMPH % 31.1 %; LYMPH ABS # 1.66 K/uL (1.2-3.4); MEAN CELL VOLUME 97.2 fL (80-100); MEAN CORPUSCULAR HEMOGLOBIN 31.5 pg (25-34); MEAN CORPUSCULAR HGB CONC 32.5 g/dl (32-36); MONO % 8.3 %; PLATELET COUNT 327 K/uL (130-400); WHITE BLOOD COUNT 5.33 K/uL (4.8-10.8)
[2017-01-28 07:44] LABS: PARTIAL THROMBOPLASTIN RATIO 1.1; PROTHROMBIN TIME (PATIENT) 10.9 SECONDS (9.0-12.0)
[2017-01-28 07:50] VITALS: BP 136/82; PULSE 60; TEMP 36.6; O2SAT 100
[2017-01-28 08:17] LABS: BUN/CREATININE RATIO 14.7 (10-20); CREATININE 0.53 mg/dl (0.60-1.20); MAGNESIUM 1.8 mg/dl (1.8-2.4); POTASSIUM 4.1 mmol/L (3.5-5.1)
[2017-01-28 08:32] LABS: CALCIUM 8.5 mg/dl (8.5-10.1)
[2017-01-28 09:07] VITALS: O2SAT 100
[2017-01-28] MEDS ORDERED: BISACODYL 10 MG SUPP PR ONE (09:45)
--- NOTE | 2017-01-28 09:46 | Discharge Instructions ---
Discharge Instructions Date of Service Jan 28, 2017. Admission Reason for Admission: Acute Recurrent Pancreatitis Discharge Discharge Diagnosis / Problem: Acute Pancreatitis Discharge Goals Goal(s): Decrease discomfort, Improve function, Increase independence Activity Recommendations Activity Limitations: resume your previous activity . Instructions / Follow-Up Instructions / Follow-Up Acute Recurrent Pancreatitis: - MRCP was performed that reveals mild acute pancreatitis and recommendations from GI will be to perform an endoscopic ultrasound to better visualize the pancreas. -- This ultrasound will be done as an outpatient in 6-8 weeks to allow time for this pancreatitis flair to calm down - Your lipase was elevated on admission at 9000 and went to 1800 and now is normal at 243 - this is an enzyme released from your pancreas that helps with digestion - Recommend slowing advancing your diet as you can tolerate. Eat slowly and sitting upright. Remain in an upright position at least 30 minutes after eating Hiatal Hernia: - Would recommend conservative treatment at this time with small frequent meals and avoiding foods that are irritative to the stomach - If you would like to pursue surgical intervention this can be discussed with the GI doctors or your family doctor but would have to be postponed until after this pancreatitis flair has improved. Follow-Up: - Please follow-up with GI as they establish for outpatient testing - Please follow-up with Dr. Mayers's office in 7-10 days. Our trimming caser will help assist with an appointment -- Your blood tests for autoimmune labs and celiacs will be sent to your family doctor and GI Current Hospital Diet Patient's current hospital diet: Regular Diet, Gluten Free Diet Discharge Diet Recommended Diet: Regular Diet, Gluten Free Diet Pending Studies Studies pending at discharge: yes List of pending studies: Celiac panel and Immunological studies Medical Emergencies . Who to Call and When: Medical Emergencies: If at any time you feel your situation is an emergency, please call 911 immediately. . Non-Emergent Contact Non-Emergency issues call your: Primary Care Provider Call Non-Emergent contact if: you have a fever, your pain is concerning you, you have any medication questions . . "Provider Documentation" section prepared by Aura Sorenson. . VTE Core Measure Inpt VTE Proph given/why not?: SCD's
[2017-01-28] MEDS ORDERED: POLYETHYLENE (MIRALAX) 17 GM PACK PO SCH (10:00)
[2017-01-28 11:24] VITALS: BP 136/82; PULSE 60; TEMP 36.6; O2SAT 100
--- NOTE | 2017-01-28 13:39 | Discharge Summary ---
Discharge Summary Date of Service Jan 28, 2017. Discharge Summary Admission Date: Jan 27, 2017 at 04:19 Discharge Date: Jan 28, 2017 Discharge Disposition: Home Principal Diagnosis: Acute Recurrent Pancreatitis Problems/Secondary Diagnoses: 1. HTN 2. Hypothyroidism 3. Recurrent Pancreatitis Procedures: 1. MRCP FINDINGS: The lung bases are clear. Large hiatus hernia, unchanged. A 1.4 cm T2 hyperintense lesion within the left hepatic lobe remains unchanged. The gallbladder and spleen are unremarkable. Minimal edema surrounding the pancreatic tail. Multiple bilateral peripelvic renal cysts. No hydronephrosis. No retroperitoneal lymphadenopathy. The common bile duct appears be normal in course and caliber. No filling defects within the common bile duct. No gallstones identified. The main pancreatic duct is not well-visualized due to its small caliber but appears to be unremarkable in the body and head. The main pancreatic duct may be slightly irregular and borderline dilated at the tail. There is a 7 mm cystic focus within the head of the pancreas which may connect to the main pancreatic duct. IMPRESSION: 1. Trace edema surrounding the pancreatic tail. This favors mild acute pancreatitis. 2. The majority of the main pancreatic duct is normal in course and caliber. The pancreatic duct at the tail of the pancreas is borderline dilated and slightly irregular. This may be due to the acute on chronic pancreatitis. 3. The common bile duct is normal in course and caliber. No filling defects within the common bile duct. 4. A 7 mm cystic focus within the head of the pancreas. This favors a small side branch intraductal papillary mucinous neoplasm. One year follow-up can be performed to ensure stability. 5. Additional findings as described above. Consultations: 1. GI Medication Reconciliation Continued Medications: Aspirin (Aspirin Chewable) 81 Mg Chew 81 MG PO WEEKLY EVERY MONDAY Biotin (Biotin 5000) 5 Mg Cap 5 MG PO DAILY Cranberry (Vaccinium Macrocarp (Cranberry) 125 Mg Tab 125 MG PO DAILY Cyanocobalamin (Vitamin B-12) 1,000 Mcg Tab 1000 MCG PO DAILY, TAB Cyclosporine (Ophth) (Restasis) 0.05 % Emu 1 DROP BID Fish Oil ([place]-3) 1 Ea Cap 1 CAP PO DAILY, CAP Fish Oil-Krill Oil (Krill Oil Plus) 1 Cap Cap 1 CAP PO DAILY Levothyroxine Sodium (Levothyroxine Sodium) 88 Mcg Tab 88 MCG DAILY Lisinopril (Lisinopril) 10 Mg Tab 10 MG DAILY Lutein-Zeaxanthin (Lutein W/Zeaxanthin) 1 Tab Tab 1 TAB PO DAILY Metronidazole (Topical) (Metrocream) 0.75 % Cre 1 APPLN TOP DAILY, GM Multiple Vitamin (Multi Vitamin Daily) 1 Tab Tab 1 TAB PO DAILY Multiple Vitamins W/ Minerals (Ocuvite) 1 Tab Tab 1 TAB PO DAILY Probiotic Product (Probiotic) 1 Cap Cap 1 CAP PO DAILY Discharge Exam REVIEW OF SYSTEMS Constitutional: No fever, No chills ENT: + problem reported (dry mouth) Respiratory: No cough, No shortness of breath Cardiovascular: No chest pain Abdomen: No nausea, No vomiting, No diarrhea, No constipation; No abdominal pain Musculoskeletal: No calf pain Female : No dysuria Skin: No rash PHYSICAL EXAMINATION General Appearance: WD/WN, no apparent distress Eyes: sclerae normal ENT: hearing grossly normal Neck: supple, no JVD, trachea midline Respiratory/Chest: lungs clear, normal breath sounds, no respiratory distress, no accessory muscle use Cardiovascular: regular rate, rhythm, no gallop, no murmur Abdomen: normal bowel sounds, non tender, soft, + pertinent finding (no guarding, rigidity, rebound tenderness) Extremities: no pedal edema, no calf tenderness Neurologic/Psychiatric: alert, oriented x 3 Skin: normal color, warm/dry Hospital Course ADMISSION: The patient is a 76-year-old female who presents to the emergency department complained of intermittent abdominal pain and vomiting that began about 3 hours prior to arrival. These symptoms are similar to her admission in August 2016 when she was diagnosed with pancreatitis. She reports having had dozens of episodes symptoms since that time, but this was the only one bowel movement in the emergency department for assessment. She does have a history of a hiatal hernia which causes some GI distress intermittently. She also still has her gallbladder. She reports no differences in her usual dietary intake may have precipitated the symptoms. HOSPITAL COURSE: Ms. Vidales was admitted for acute pancreatitis. Lipase 9000s on admission that normalized upon discharge. MRCP stable from October 2016, please see procedures for official report. Underlying etiology is unknown. LFTs and bilirubin unremarkable. During admission, gluten studies and immunological studies obtained and are pending. Pain is resolved and she is tolerated a regular diet. Plan for outpatient EUS in 6-8 weeks to further evaluate pancreas. No home medications were altered and no new medications prescribed. She is stable and optimal for discharge home with outpatient follow-up. Total Time Spent: Greater than 30 minutes This includes examination of the patient, discharge planning, medication reconciliation, and communication with other providers. Discharge Instructions Please refer to the electronic Patient Visit Report (Discharge Instructions) for additional information. Additional Copies To Rob Mayers M.D.
[2017-02-01 17:03] LABS: IGA SERUM 268 mg/dL (81-463); IGG SERUM 635 mg/dL (694-1618); TIS TRANS IGA 1 U/mL (<4)
== END 2017-01-28 13:44 | disposition home or self-care (01) | DRG 440 ==
LOC: C.EDB 01:47 → C.MS2W 04:19 → ENRESERV 04:49
PROVIDERS: ADMIT Hospitalist; ATTEND Internal Medicine
DX: K85.90 Acute pancreatitis without necrosis or infection, unspecified (principal); I10 Essential (primary) hypertension; E03.9 Hypothyroidism, unspecified; K44.9 Diaphragmatic hernia without obstruction or gangrene; Z86.19 Personal history of other infectious and parasitic diseases; Z87.442 Personal history of urinary calculi; Z79.899 Other long term (current) drug therapy; Z79.82 Long term (current) use of aspirin

== ENCOUNTER 2017-10-10 17:49 | Inpatient (IN) | payer OTHER ==
[~2017-10-10] VITALS: Ht 154.9 cm; Wt 81.2 kg
[~2017-10-10 17:49] MED LIST changes: +BIOTCAP2 PO; -CALC-281; +CRAN1TAB PO; +CYAN10005 PO; -CYCL0.052; +CYCL0.052 OPB; +FISH1CAP8 PO; +LUTE6TAB PO; +METR0.754 TOP; -MISCCAP80 PO; -MTRCR45 TD; +OMEG10007 PO; -ONDA4TAB9 PO
--- NOTE | 2017-10-10 18:12 | EMERGENCY ROOM VISIT NOTE ---
History Report prepared by Lizette: Al Claudio Under the Supervision of: Dr. Xavier Benton M.D. First contact with patient: 17:50 Stated Complaint: VOMITING, SYNCOPE, AB PAIN History of Present Illness The patient is a 77 year old white female with a past medical history of pancreatitis, kidney stone, Lyme who presents to the ED via EMS with a cc of intermittent abdominal pain beginning 6 hours ago. Positive nausea, vomiting. Negative chest pain, shortness of breath, urinary symptoms, recent travels, trauma, antibiotic use, changes in diet. She states that within the first hour of pain, she was vomiting, and she vomited "many times" this afternoon. The patient notes she did not take any medications after the onset of pain. She says that she has no history of kidney stones. She still has her appendix and gallbladder. Per the patient's , the patient's stomach is "in the patient 's chest" and about once per week, the patient goes through a vomiting spell after eating, but this spell has been much worse. Source of History: patient, spouse/significant other Onset: 6 hours ago Position: abdomen Symptom Intensity: hx of pancreatitis Quality: other (pain) Timing: intermittent Associated Symptoms: + nausea, + vomiting, No chest pain, No SOB Review of Systems See HPI for pertinent positives and negatives. A total of ten systems were reviewed and were otherwise negative. Past Medical & Surgical Medical Problems: (1) Acute recurrent pancreatitis (2) Kidney stone (3) Lyme disease Family History Heart disease Hypertension Kidney disease Lung disease Social History Smoking Status: Never Smoker Alcohol Use: none Drug Use: none Marital Status: Housing Status: lives with family Occupation Status: retired Current/Historical Medications Scheduled Biotin (Biotin 5000), 5 MG PO DAILY Cephalexin Monohydrate (Keflex), 1 CAP PO BID Cranberry (Vaccinium Macrocarp (Cranberry), 125 MG PO DAILY Cyanocobalamin (Vitamin B-12), 1,000 MCG PO DAILY Cyclosporine (Ophth) (Restasis), 1 DROP OPB BID Krill Oil (Krill Oil), 1 CAP PO DAILY Levothyroxine Sodium (Synthroid), 88 MCG PO DAILY Lisinopril (Lisinopril), 10 MG DAILY Lutein-Zeaxanthin (Lutein W/Zeaxanthin), 1 TAB PO DAILY Multiple Vitamin (Multi Vitamin Daily), 1 TAB PO DAILY Probiotic Product (Probiotic), 1 CAP PO DAILY Allergies Coded Allergies: Morphine (Verified Allergy, Intermediate, RASH, 09/02/16) Hives Gluten (Verified Allergy, Mild, GI SYMPTOMS, 01/27/17) Iodinated Diagnostic Agents (Verified Allergy, Unknown, RASH, 09/02/16) Latex1 -Allergic Contact Dermititis (Verified Allergy, Unknown, HIVES, ) Physical Exam Vital Signs Date Time Temp Pulse Resp B/P (MAP) Pulse Ox O2 Delivery O2 Flow Rate FiO2 10/10/17 21:35 69 14 115/65 93 Room Air 10/10/17 20:00 72 24 131/68 97 Room Air 10/10/17 19:36 73 10/10/17 19:30 71 18 132/65 96 Room Air 10/10/17 19:02 74 18 144/67 97 Room Air 10/10/17 18:00 37.0 84 18 168/71 95 Room Air Physical Exam GENERAL: Awake, alert, well-appearing, NAD HENT: Normocephalic, atraumatic. EYES: Normal conjunctiva. Sclera non-icteric. NECK: Supple. No nuchal rigidity. FROM. RESPIRATORY: CTAB, no rhonchi, wheezing, crackles CARDIAC: RRR, no MRG ABDOMEN: Soft, epigastric and right-sided abdominal pain, negative obturator, negative psoas, BS+ MSK: No chest wall TTP, no LE edema, no CVA TTP. NEURO: GCS 15, CN 2-12 intact, moves all 4s on command SKIN: No rash or jaundice noted. Medical Decision & Procedures ER Provider Diagnostic Interpretation: X-ray: Per my interpretation, radiologist review. CHEST ONE VIEW PORTABLE CLINICAL HISTORY: Abdominal pain. COMPARISON STUDY: Chest radiograph September 02, 2016. FINDINGS: A large hiatal hernia with intrathoracic stomach is noted. Calcified left lower lobe granuloma is noted as well as calcified left hilar lymph nodes. There is no pneumothorax or pleural effusion. Pulmonary vascularity is normal. There is no consolidation to suggest pneumonia. There is no lucency under the hemidiaphragms to suggest pneumoperitoneum on this exam. Cardiomediastinal silhouette is stable. IMPRESSION: 1. No acute cardiopulmonary findings. No change in appearance the chest. 2. Large hiatal hernia with partially intrathoracic stomach. Electronically signed by: Shiva Jones M.D. 10/10/2017 6:37 PM Dictated Date/Time: 10/10/2017 6:[address] OF THE ABDOMEN AND PELVIS WITH CONTRAST CLINICAL HISTORY: Epigastric and right-sided abdominal pain. Nausea and vomiting. History of pancreatitis. COMPARISON STUDY: CT of the abdomen and pelvis September 02, 2016 and MRCP January 27, 2017. TECHNIQUE: Patient was premedicated for IV dye allergy as per ER protocol. Following IV administration of 92 mL of Optiray-320, axial images of the abdomen and pelvis were obtained from the lung bases to the proximal femurs. Images were reviewed in the axial, sagittal, and coronal planes. IV contrast was administered without complication. A dose lowering technique was utilized adhering to the principles of ALARA. CT DOSE: 603.58 mGy.cm FINDINGS: Visualized portions of the lower chest demonstrate a calcified granuloma within the left lower lobe and a calcified left hilar lymph node. There is a large lateral hernia with partially intrathoracic stomach. There is possible wall thickening of the distal esophagus. This was shown on previous exam. No pneumatosis, free air or portal venous gas is present. The liver, spleen, adrenal glands are unremarkable with exception of calcified granulomas within the spleen. There is moderate infiltration and fluid centered on the pancreatic tail. Is no evidence for gland necrosis. There is no well-defined peripancreatic fluid collection. There are renal cortical and parapelvic cysts. Several subcentimeter renal lesions are too small to characterize. There is no evidence for a bowel obstruction. The appendix is normal. There is colonic diverticulosis without evidence for acute diverticulitis. There are multiple suspected uterine fibroids. There are no suspicious osseous lesions. The splenic vein is patent. IMPRESSION: 1. Moderate infiltration centered on the pancreatic tail extending into the left upper quadrant consistent with acute pancreatitis. No evidence for gland necrosis. No biliary or pancreatic ductal dilatation. Patent splenic vein. 2. Large hiatal hernia with partially intrathoracic stomach. Distal esophageal wall thickening is nonspecific but may reflect esophagitis. Electronically signed by: Shiva Jones M.D. 10/10/2017 9:14 PM Dictated Date/Time: 10/10/2017 9:08 PM Laboratory Results Test 10/10/17 18:20 10/10/17 19:00 Urine Color YELLOW Urine Appearance CLEAR (CLEAR) Urine pH 6.5 (4.5-7.5) Urine Specific [place] 1.019 (1.000-1.030) Urine Protein NEG (NEG) Urine Glucose (UA) NEG (NEG) Urine Ketones 1+ (NEG) Urine Occult Blood 1+ (NEG) Urine Nitrite NEG (NEG) Urine Bilirubin NEG (NEG) Urine Urobilinogen NEG (NEG) Urine Leukocyte Esterase SMALL (NEG) Urine WBC (Auto) >30 /hpf (0-5) Urine RBC (Auto) 5-10 /hpf (0-4) Urine Hyaline Casts (Auto) 5-10 /lpf (0-5) Urine Epithelial Cells (Auto) 20-30 /lpf (0-5) Urine Bacteria (Auto) 3+ (NEG) Troponin I < 0.015 ng/ml (0-0.045) Laboratory results reviewed by me Medications Administered Medications (Trade) Dose Ordered Sig/[place] Route Start Time Stop Time Status Last Admin Dose Admin Sodium Chloride 1,000 ml @ 999 mls/hr Q1H1M STAT IV 10/10/17 18:19 10/10/17 19:19 DC 10/10/17 18:34 999 MLS/HR Ondansetron HCl (Zofran Inj) 4 mg NOW STAT IV 10/10/17 18:19 10/10/17 18:20 DC 10/10/17 18:33 4 MG Fentanyl Citrate (Fentanyl Inj) 50 mcg NOW ONCE IV 10/10/17 18:30 10/10/17 18:31 DC 10/10/17 18:33 50 MCG Ceftriaxone Sodium (Rocephin Inj) 1 gm NOW STAT IV 10/10/17 19:33 10/10/17 19:35 DC 10/10/17 19:43 1 GM Diphenhydramine HCl (Benadryl Inj) 25 mg NOW STAT IV 10/10/17 20:12 10/10/17 20:13 DC 10/10/17 20:21 25 MG ECG Per My Interpretation Indication: abdominal pain Rate (beats per minute): 81 Rhythm: normal sinus Findings: T-wave inversion (lead 3), other (normal axis, normal intervals) ED Course 1803: The patient was evaluated in room A3. A complete history and physical exam was performed. 1934: I reevaluated and updated the patient. 2104: Upon reexamination, the patient was resting comfortably. I discussed the test results and treatment plan with the patient and her family. The patient will be evaluated for further management. 2113: Dr. Bishnu MARCUS environmental programs specialist - was made aware of the patient. The patient will be evaluated for further treatment. Medical Decision The patient is a 77 year old white female with a past medical history of pancreatitis, kidney stone, Lyme who presents to the ED via EMS with a cc of intermittent abdominal pain beginning 6 hours ago. Positive nausea, vomiting. Negative chest pain, shortness of breath, urinary symptoms, recent travels, trauma, antibiotic use, changes in diet. Differential diagnosis: Etiologies such as appendicitis, diverticulitis, PUD, biliary pathology, UTI, pancreatitis, obstruction, mesenteric ischemia, aortic pathology, infections, inflammatory bowel disease, renal colic, as well as others were entertained. Patient was seen and evaluated the bedside. Patient did state that she had acute onset of abdominal pain with associated nausea and vomiting beginning around noon. Patient states that she vomited around 20 times. Patient exam may been related to something she ate. Patient did state that she had a prior history of hepatitis. Patient denies any alcohol use. Patient does have an elevated white blood cell count 17,000. Patient does have new elevated BUN to creatinine ratio. Patient was given IV fluids along with medications for symptom control. Patient did have an elevated lipase greater than 13,000. Patient currently has a Charlo criteria of 2 for elevated WBC and age. I did discuss the patient with the hospitalist given the need for IV fluids, antiemetics, and pain control. Patient's urinalysis concerning for possible UTI so the patient was given Rocephin. Patient did have a CT of the abdomen and pelvis completed. Large hiatal hernia. No necrosis seen. Discussed findings w/ patient and discussed with hospitalist for inpatient trx. Agreeable to staying in house even though pain improved for further hydration, pain control, and ensure patient can tolerate PO. Admitted to medicine. Medication Reconcilliation Current Medication List: was personally reviewed by me Blood Pressure Screening Patient's blood pressure: Elevated blood pressure Blood pressure disposition: Elevated BP felt to be situational Consults Time Called: 2099 Consulting Physician: Dr. Bishnu MARCUS environmental programs specialist Returned Call: 2113 Dr. Bishnu MARCUS environmental programs specialist - was made aware of the patient. The patient will be evaluated for further treatment. Impression Primary Impression: Acute pancreatitis Scribe Attestation The scribe's documentation has been prepared under my direction and personally reviewed by me in its entirety. I confirm that the note above accurately reflects all work, treatment, procedures, and medical decision making performed by me. Departure Information Dispostion Being Evaluated By Hospitalist Prescriptions Cephalexin Monohydrate (Keflex) 500 Mg Cap 1 CAP PO BID for 4 Days, #8 CAP Prov: Rosa Paz M.D. 10/12/17 Referrals Pro,Rob Cline M.D. (PCP) Problem Qualifiers Primary Impression: Acute pancreatitis Pancreatitis type: unspecified pancreatitis type Acute pancreatitis complication: unspecified Qualified Codes: K85.90 - Acute pancreatitis without necrosis or infection, unspecified
[2017-10-10] MEDS ORDERED: ONDANSETRON INJ 2 MG/ML 2 ML VIAL IV STA (18:19)
[2017-10-10] MEDS ORDERED: SODIUM CHLORIDE 0.9% 1000ML 1,000 ML IV STA (18:19)
[2017-10-10] MEDS ORDERED: FENTANYL CITRATE INJ 50 MCG/1 ML 2 ML VIAL IV ONE (18:30)
--- NOTE | 2017-10-10 18:38 | DIAGNOSTIC IMAGING REPORT ---
CHEST ONE VIEW PORTABLE CLINICAL HISTORY: Abdominal pain. COMPARISON STUDY: Chest radiograph September 02, 2016. FINDINGS: A large hiatal hernia with intrathoracic stomach is noted. Calcified left lower lobe granuloma is noted as well as calcified left hilar lymph nodes. There is no pneumothorax or pleural effusion. Pulmonary vascularity is normal. There is no consolidation to suggest pneumonia. There is no lucency under the hemidiaphragms to suggest pneumoperitoneum on this exam. Cardiomediastinal silhouette is stable. IMPRESSION: 1. No acute cardiopulmonary findings. No change in appearance the chest. 2. Large hiatal hernia with partially intrathoracic stomach. Electronically signed by: Shiva Jones M.D. 10/10/2017 6:37 PM Dictated Date/Time: 10/10/2017 6:35 PM
[2017-10-10] MEDS ORDERED: RANI150T2 PO (19:07)
[2017-10-10] MEDS ORDERED: SYN88 PO (19:07)
[2017-10-10] MEDS ORDERED: KRIL1000 PO (19:16)
[2017-10-10 19:20] LABS: BASO % 0.2 %; BASO ABS # 0.04 K/uL (0-0.2); EOS % 0.2 %; EOS ABS # 0.04 K/uL (0-0.5); HEMATOCRIT 42.4 % (37-47); HEMOGLOBIN 14.4 g/dL (12.0-16.0); IG# 0.05 K/uL (0.00-0.02); LYMPH % 5.6 %; LYMPH ABS # 0.97 K/uL (1.2-3.4); MEAN CELL VOLUME 96.6 fL (80-100); MEAN CORPUSCULAR HEMOGLOBIN 32.8 pg (25-34); MEAN PLATELET VOLUME 9.5 fL (7.4-10.4); MONO % 4.6 %; MONO ABS # 0.79 K/uL (0.11-0.59); NEUT % 89.1 %; NEUT ABS # 15.46 K/uL (1.4-6.5); PLATELET COUNT 312 K/uL (130-400); RED CELL DISTRIBUTION WIDTH SD 45.8 fL (36.4-46.3); WHITE BLOOD COUNT 17.35 K/uL (4.8-10.8)
[2017-10-10] MEDS ORDERED: CEFTRIAXONE SOD INJ 1 GM ADDVIAL IV STA (19:33)
[2017-10-10 19:43] LABS: ALBUMIN 3.5 gm/dl (3.4-5.0); ALT/SGPT 20 U/L (12-78); BLOOD UREA NITROGEN 20 mg/dl (7-18); CALCIUM 8.6 mg/dl (8.5-10.1); CARBON DIOXIDE 28 mmol/L (21-32); CREATININE 0.69 mg/dl (0.60-1.20); GLUCOSE 159 mg/dl (70-99); POTASSIUM 3.8 mmol/L (3.5-5.1); SODIUM 140 mmol/L (136-145)
[2017-10-10 19:48] LABS: ALKALINE PHOSPHATASE 63 U/L (45-117); AST/SGOT 11 U/L (15-37); LIPASE 13450 U/L (73-393)
[2017-10-10] MEDS ORDERED: OPTIRAY 320 IV PRN (20:00)
[2017-10-10] MEDS ORDERED: DiphenhydrAMINE HCL 50 MG/ML VIAL IV STA (20:12)
[2017-10-10] MEDS ORDERED: MISCCAP80 PO (20:51)
--- NOTE | 2017-10-10 21:15 | DIAGNOSTIC IMAGING REPORT ---
CT OF THE ABDOMEN AND PELVIS WITH CONTRAST CLINICAL HISTORY: Epigastric and right-sided abdominal pain. Nausea and vomiting. History of pancreatitis. COMPARISON STUDY: CT of the abdomen and pelvis September 02, 2016 and MRCP January 27, 2017. TECHNIQUE: Patient was premedicated for IV dye allergy as per ER protocol. Following IV administration of 92 mL of Optiray-320, axial images of the abdomen and pelvis were obtained from the lung bases to the proximal femurs. Images were reviewed in the axial, sagittal, and coronal planes. IV contrast was administered without complication. A dose lowering technique was utilized adhering to the principles of ALARA. CT DOSE: 603.58 mGy.cm FINDINGS: Visualized portions of the lower chest demonstrate a calcified granuloma within the left lower lobe and a calcified left hilar lymph node. There is a large lateral hernia with partially intrathoracic stomach. There is possible wall thickening of the distal esophagus. This was shown on previous exam. No pneumatosis, free air or portal venous gas is present. The liver, spleen, adrenal glands are unremarkable with exception of calcified granulomas within the spleen. There is moderate infiltration and fluid centered on the pancreatic tail. Is no evidence for gland necrosis. There is no well-defined peripancreatic fluid collection. There are renal cortical and parapelvic cysts. Several subcentimeter renal lesions are too small to characterize. There is no evidence for a bowel obstruction. The appendix is normal. There is colonic diverticulosis without evidence for acute diverticulitis. There are multiple suspected uterine fibroids. There are no suspicious osseous lesions. The splenic vein is patent. IMPRESSION: 1. Moderate infiltration centered on the pancreatic tail extending into the left upper quadrant consistent with acute pancreatitis. No evidence for gland necrosis. No biliary or pancreatic ductal dilatation. Patent splenic vein. 2. Large hiatal hernia with partially intrathoracic stomach. Distal esophageal wall thickening is nonspecific but may reflect esophagitis. Electronically signed by: Shiva Jones M.D. 10/10/2017 9:14 PM Dictated Date/Time: 10/10/2017 9:08 PM
--- NOTE | 2017-10-10 21:29 | History and Physical ---
History & Physical Date & Time of Service: Oct 10, 2017 at 21:21 Chief Complaint: Vomiting, Syncope, Ab Pain Primary Care Physician: Rob Mayers M.D. History of Present Illness Source: patient, hospital records 77 y/o F Hx HTN, hypothyroidism, hiatal hernia, recurrent pancreatitis of undetermined etiology. The pt presents with abdominal pain, nausea and several episodes of vomiting over the past few hours. She states that she occasional suffers nausea and vomiting due to a hiatal hernia although tonight's symptoms were persistent. She denies CP, SOB, diarrhea, fevers or dysuria. Initial labs are notable for an elevated lipase and a (+) UA. CT abdomen is consistent with recurrence of acute pancreatitis. Past Medical/Surgical History 1) Recurrent pancreatitis - undetermined etiology - hospitalized 08/30, 01/28. 2) HTN 3) Hypothyroidism 4) Hiatal hernia - leads to occasional spells of nausea and vomiting per pt Family History Heart disease Hypertension Kidney disease Lung disease Social History Smoking Status: Never Smoker Drug Use: none Marital Status: Housing status: lives with family Occupational Status: retired Multi-Drug Resistant Organisms History of MDRO: No Allergies Coded Allergies: Morphine (Verified Allergy, Intermediate, RASH, 09/02/16) Hives Gluten (Verified Allergy, Mild, GI SYMPTOMS, 01/27/17) Iodinated Diagnostic Agents (Verified Allergy, Unknown, RASH, 09/02/16) Latex1 -Allergic Contact Dermititis (Verified Allergy, Unknown, HIVES, ) Home Medications Scheduled Biotin (Biotin 5000), 5 MG PO DAILY Cranberry (Vaccinium Macrocarp (Cranberry), 125 MG PO DAILY Cyanocobalamin (Vitamin B-12), 1,000 MCG PO DAILY Cyclosporine (Ophth) (Restasis), 1 DROP OPB BID Krill Oil (Krill Oil), 1 CAP PO DAILY Levothyroxine Sodium (Synthroid), 88 MCG PO DAILY Lisinopril (Lisinopril), 10 MG DAILY Lutein-Zeaxanthin (Lutein W/Zeaxanthin), 1 TAB PO DAILY Multiple Vitamin (Multi Vitamin Daily), 1 TAB PO DAILY Probiotic Product (Probiotic), 1 CAP PO DAILY Review of Systems Constitutional: No fever, No chills, No sweats Eyes: No worsening of vision ENT: No hearing loss, No unusual epistaxis, No nasal symptoms Respiratory: No cough, No sputum, No wheezing Cardiovascular: No chest pain, No orthopnea, No PND Abdomen: + pain Musculoskeletal: No joint pain Genitourinary - Female: No dysuria, No urinary frequency, No urinary urgency Neurologic: No memory loss, No paralysis, No weakness Psychiatric: No depression symptoms Endocrine: No fatigue Hematologic / Lymphatic: No abnormal bleeding/bruising Integumentary: No rash Allergic / Immunologic: No environmental allergies Physical Exam Vital Signs Date Time Temp Pulse Resp B/P (MAP) Pulse Ox O2 Delivery O2 Flow Rate FiO2 10/10/17 20:00 72 24 131/68 97 Room Air 10/10/17 19:36 73 10/10/17 19:30 71 18 132/65 96 Room Air 10/10/17 19:02 74 18 144/67 97 Room Air 10/10/17 18:00 37.0 84 18 168/71 95 Room Air General Appearance: WD/WN, no apparent distress Head: normocephalic Eyes: normal inspection, EOMI ENT: normal ENT inspection, pharynx normal Neck: supple, no JVD Respiratory/Chest: chest non-tender, lungs clear, normal breath sounds Cardiovascular: regular rate, rhythm, no edema, no gallop Abdomen/GI: + tenderness (mild diffuse upper quadrant) Back: normal inspection, no CVA tenderness Extremities/Musculoskelatal: normal inspection, no calf tenderness, normal capillary refill, no pedal edema Neurologic/Psych: sock boarder II-XII nml as tested, no motor/sensory deficits, alert, oriented x 3 Skin: normal color Diagnostics Laboratory Results Results Past 24 Hours Test 10/10/17 18:20 10/10/17 19:00 Range/Units Urine Color YELLOW Urine Appearance CLEAR CLEAR Urine pH 6.5 4.5-7.5 Urine Specific [place] 1.019 1.000-1.030 Urine Protein NEG NEG Urine Glucose (UA) NEG NEG Urine Ketones 1+ NEG Urine Occult Blood 1+ NEG Urine Nitrite NEG NEG Urine Bilirubin NEG NEG Urine Urobilinogen NEG NEG Urine Leukocyte Esterase SMALL NEG Urine WBC (Auto) >30 0-5 /hpf Urine RBC (Auto) 5-10 0-4 /hpf Urine Hyaline Casts (Auto) 5-10 0-5 /lpf Urine Epithelial Cells (Auto) 20-30 0-5 /lpf Urine Bacteria (Auto) 3+ NEG White Blood Count 17.35 4.8-10.8 K/uL Red Blood Count 4.39 4.2-5.4 M/uL Hemoglobin 14.4 12.0-16.0 g/dL Hematocrit 42.4 37-47 % Mean Corpuscular Volume 96.6 80-100 fL Mean Corpuscular Hemoglobin 32.8 25-34 pg Mean Corpuscular Hemoglobin Concent 34.0 32-36 g/dl Platelet Count 312 130-400 K/uL Mean Platelet Volume 9.5 7.4-10.4 fL Neutrophils (%) (Auto) 89.1 % Lymphocytes (%) (Auto) 5.6 % Monocytes (%) (Auto) 4.6 % Eosinophils (%) (Auto) 0.2 % Basophils (%) (Auto) 0.2 % Neutrophils # (Auto) 15.46 1.4-6.5 K/uL Lymphocytes # (Auto) 0.97 1.2-3.4 K/uL Monocytes # (Auto) 0.79 0.11-0.59 K/uL Eosinophils # (Auto) 0.04 0-0.5 K/uL Basophils # (Auto) 0.04 0-0.2 K/uL RDW Standard Deviation 45.8 36.4-46.3 fL RDW Coefficient of Variation 13.0 11.5-14.5 % Immature Granulocyte % (Auto) 0.3 % Immature Granulocyte # (Auto) 0.05 0.00-0.02 K/uL Sodium Level 140 136-145 mmol/L Potassium Level 3.8 3.5-5.1 mmol/L Chloride Level 107 98-107 mmol/L Carbon Dioxide Level 28 21-32 mmol/L Anion Gap 6.0 3-11 mmol/L Blood Urea Nitrogen 20 7-18 mg/dl Creatinine 0.69 0.60-1.20 mg/dl Est Creatinine Clear Calc Drug Dose 64.9 ml/min Estimated GFR () 96.6 Estimated GFR (Non- 83.4 BUN/Creatinine Ratio 28.6 10-20 Random Glucose 159 70-99 mg/dl Calcium Level 8.6 8.5-10.1 mg/dl Total Bilirubin 0.4 0.2-1 mg/dl Direct Bilirubin 0.1 0-0.2 mg/dl Aspartate Amino Transf (AST/SGOT) 11 15-37 U/L Alanine Aminotransferase (ALT/SGPT) 20 12-78 U/L Alkaline Phosphatase 63 45-117 U/L Troponin I < 0.015 0-0.045 ng/ml Total Protein 7.0 6.4-8.2 gm/dl Albumin 3.5 3.4-5.0 gm/dl Lipase 59181 73-393 U/L Microbiology Results 10/10/17 Urine Culture, Received Pending Diagnostic Radiology CT abdomen: 1. Moderate infiltration centered on the pancreatic tail extending into the left upper quadrant consistent with acute pancreatitis. No evidence for gland necrosis. No biliary or pancreatic ductal dilatation. Patent splenic vein. 2. Large hiatal hernia with partially intrathoracic stomach. Distal esophageal wall thickening is nonspecific but may reflect esophagitis. MRCP 01/28 1. Trace edema surrounding the pancreatic tail. This favors mild acute pancreatitis. 2. The majority of the main pancreatic duct is normal in course and caliber. The pancreatic duct at the tail of the pancreas is borderline dilated and slightly irregular. This may be due to the acute on chronic pancreatitis. 3. The common bile duct is normal in course and caliber. No filling defects within the common bile duct. 4. A 7 mm cystic focus within the head of the pancreas. This favors a small side branch intraductal papillary mucinous neoplasm. One year follow-up can be performed to ensure stability. 5. Additional findings as described above. Impression Assessment and Plan 77 y/o F Hx HTN, hypothyroidism, hiatal hernia, recurrent pancreatitis of undetermined etiology. The pt presents with abdominal pain, nausea and several episodes of vomiting over the past few hours. She states that she occasional suffers nausea and vomiting due to a hiatal hernia although tonight's symptoms were persistent. She denies CP, SOB, diarrhea, fevers or dysuria. Initial labs are notable for an elevated lipase and a (+) UA. CT abdomen is consistent with recurrence of acute pancreatitis. 1) Acute pancreatitis - NPO, IVF, analgesia, antiemetics provided. We will consult GI due to recurrence. 2) UTI - placed on Ceftriaxone pending culture results. 3) HTN - cont Lisinopril 4) Hypothyroidism - cont Synthroid Full code - Heparin prophylaxis Total time for this admit including review of labs, meds, imaging, records - discussion with pt and ER attending - 37 min Level of Care Med/Surg Resuscitation Status FULL RESUSCITATION VTE Prophylaxis Given or contraindicated: Unfractionated heparin SQ
[2017-10-10] MEDS ORDERED: ONDANSETRON INJ 2 MG/ML 2 ML VIAL IV PRN (22:15)
[2017-10-10] MEDS ORDERED: POLYETHYLENE (MIRALAX) 17 GM PACK PO PRN (22:15)
[2017-10-10] MEDS ORDERED: ALUMINUM/MAGNESIUM/SIMETH (MAALOX MAX) 30 ML UDC PO PRN (22:15)
[2017-10-10] MEDS ORDERED: ACETAMINOPHEN 325 MG TAB PO PRN (22:15)
[2017-10-10] MEDS ORDERED: ZOLPIDEM TARTRATE 5 MG TAB PO PRN (22:15)
[2017-10-10] MEDS ORDERED: MAGNESIUM HYDROXIDE SUSP 30 ML UDC PO PRN (22:15)
[2017-10-10] MEDS ORDERED: HYDROmorphone INJ 0.5 MG/0.5 ML SYR IV PRN (22:30)
[2017-10-10 22:40] VITALS: O2SAT 98
[2017-10-10 23:30] VITALS: BP 144/80; PULSE 67; TEMP 36.4; O2SAT 96
[2017-10-10] MEDS: NSS + 20MEQ KCL 1000ML 1,000 ML IV SCH (23:45)
[2017-10-11 00:01] VITALS: BP 144/80; PULSE 67; TEMP 36.4; Ht 154.9 cm; Wt 81.2 kg
[2017-10-11 06:14] LABS: CALCIUM 8.2 mg/dl (8.5-10.1); CREATININE 0.52 mg/dl (0.60-1.20); POTASSIUM 4.2 mmol/L (3.5-5.1)
[2017-10-11] MEDS: NSS + 20MEQ KCL 1000ML 1,000 ML IV SCH (06:22)
--- NOTE | 2017-10-11 06:54 | Family Medicine Progress Note ---
Progress Note Date of Service Oct 11, 2017. Subjective Pt evaluation today including: conversation w/ patient, physical exam, chart review, lab review, review of inpatient medication list Pain: No pain reported PO Intake: Low fat diet Voiding: no voiding problems Ms. Vidales reports she feels well today. She states her abdominal pain has resolved. She denies nausea, vomiting, fever or chills. She states she has not had any urinary symptoms at all. She reports the work-up for her recurrent pancreatitis has been negative thus far. Constitutional: No fever, No chills Respiratory: No cough, No sputum, No wheezing, No shortness of breath, No dyspnea on exertion Cardiovascular: No chest pain, No edema Abdomen: No pain, No nausea, No vomiting, No diarrhea Female : No dysuria, No urinary frequency, No hematuria All Other Systems: Reviewed and Negative Medications Current Inpatient Medications Medications (Trade) Dose Ordered Sig/Angeles Route Start Time Stop Time Status Last Admin Dose Admin Ioversol (Optiray 320) 111 ml UD PRN IV 10/10/17 20:00 10/14/17 19:59 Enoxaparin Sodium (Lovenox Inj) 40 mg Q24H SQ 10/11/17 08:00 11/10/17 07:59 10/11/17 07:45 40 MG Acetaminophen (Tylenol Tab) 650 mg Q4H PRN PO 10/10/17 22:15 11/09/17 22:14 Al Hydrox/Mg Hydrox/Simethicone (Maalox Max Susp) 15 ml Q4H PRN PO 10/10/17 22:15 11/09/17 22:14 Magnesium Hydroxide (Milk Of Magnesia Susp) 30 ml Q6H PRN PO 10/10/17 22:15 11/09/17 22:14 Polyethylene (Miralax Powder Packet) 17 gm DAILY PRN PO 10/10/17 22:15 11/09/17 22:14 Zolpidem Tartrate (Ambien Tab) 5 mg HSZ PRN PO 10/10/17 22:15 11/09/17 22:14 Ondansetron HCl (Zofran Inj) 4 mg Q6H PRN IV 10/10/17 22:15 11/09/17 22:14 Hydromorphone HCl (Dilaudid Inj) 0.5 mg Q3H PRN IV 10/10/17 22:30 10/24/17 22:29 10/10/17 23:35 0.5 MG Ceftriaxone Sodium 1 gm/ Dextrose 50 ml @ 100 mls/hr Q24H IV 10/11/17 19:00 10/16/17 18:59 Objective Vital Signs Date Time Temp Pulse Resp B/P (MAP) Pulse Ox O2 Delivery O2 Flow Rate FiO2 10/11/17 16:30 Room Air 10/11/17 15:26 36.6 66 19 137/73 (94) 95 Room Air 10/11/17 08:00 Room Air 10/11/17 07:25 36.6 62 20 109/67 (81) 96 Room Air 10/11/17 00:01 36.4 67 18 144/80 Room Air 10/10/17 23:30 36.4 67 18 144/80 (101) 96 Room Air 10/10/17 22:40 70 20 110/65 98 10/10/17 21:35 69 14 115/65 93 Room Air 10/10/17 20:00 72 24 131/68 97 Room Air 10/10/17 19:36 73 10/10/17 19:30 71 18 132/65 96 Room Air 10/10/17 19:02 74 18 144/67 97 Room Air Physical Exam General Appearance: WD/WN, no apparent distress Respiratory/Chest: chest non-tender, lungs clear, normal breath sounds, no respiratory distress, no accessory muscle use Cardiovascular: regular rate, rhythm, no edema, no gallop, no JVD, no murmur Abdomen: non tender, soft Extremities: no pedal edema, no calf tenderness Laboratory Results Last 24 Hours Test 10/10/17 19:00 10/11/17 05:20 White Blood Count 17.35 K/uL Red Blood Count 4.39 M/uL Hemoglobin 14.4 g/dL Hematocrit 42.4 % Mean Corpuscular Volume 96.6 fL Mean Corpuscular Hemoglobin 32.8 pg Mean Corpuscular Hemoglobin Concent 34.0 g/dl Platelet Count 312 K/uL Mean Platelet Volume 9.5 fL Neutrophils (%) (Auto) 89.1 % Lymphocytes (%) (Auto) 5.6 % Monocytes (%) (Auto) 4.6 % Eosinophils (%) (Auto) 0.2 % Basophils (%) (Auto) 0.2 % Neutrophils # (Auto) 15.46 K/uL Lymphocytes # (Auto) 0.97 K/uL Monocytes # (Auto) 0.79 K/uL Eosinophils # (Auto) 0.04 K/uL Basophils # (Auto) 0.04 K/uL RDW Standard Deviation 45.8 fL RDW Coefficient of Variation 13.0 % Immature Granulocyte % (Auto) 0.3 % Immature Granulocyte # (Auto) 0.05 K/uL Sodium Level 140 mmol/L 141 mmol/L Potassium Level 3.8 mmol/L 4.2 mmol/L Chloride Level 107 mmol/L 110 mmol/L Carbon Dioxide Level 28 mmol/L 26 mmol/L Anion Gap 6.0 mmol/L 5.0 mmol/L Blood Urea Nitrogen 20 mg/dl 14 mg/dl Creatinine 0.69 mg/dl 0.52 mg/dl Est Creatinine Clear Calc Drug Dose 64.9 ml/min 86.1 ml/min Estimated GFR () 96.6 106.1 Estimated GFR (Non- 83.4 91.5 BUN/Creatinine Ratio 28.6 27.3 Random Glucose 159 mg/dl 77 mg/dl Calcium Level 8.6 mg/dl 8.2 mg/dl Total Bilirubin 0.4 mg/dl 0.7 mg/dl Direct Bilirubin 0.1 mg/dl 0.1 mg/dl Aspartate Amino Transf (AST/SGOT) 11 U/L 12 U/L Alanine Aminotransferase (ALT/SGPT) 20 U/L 16 U/L Alkaline Phosphatase 63 U/L 44 U/L Troponin I < 0.015 ng/ml Total Protein 7.0 gm/dl 5.7 gm/dl Albumin 3.5 gm/dl 2.9 gm/dl Lipase 34928 U/L 2549 U/L Prothrombin Time 10.4 SECONDS Prothromb Time International Ratio 1.0 Magnesium Level 1.8 mg/dl Assessment and Plan 77 y/o F Hx HTN, hypothyroidism, hiatal hernia, recurrent pancreatitis of undetermined etiology. The pt presents with abdominal pain, nausea and several episodes of vomiting over the past few hours. She states that she occasional suffers nausea and vomiting due to a hiatal hernia although tonight's symptoms were persistent. She denies CP, SOB, diarrhea, fevers or dysuria. Initial labs are notable for an elevated lipase and a (+) UA. CT abdomen is consistent with recurrence of acute pancreatitis. Acute pancreatitis - initially made NPO - given her pain improved, she was advanced to clear liquid diet, and then low fat diet for dinner - continue IVF - Ringer's Lactate at 100 mls/hr - Dilaudid prn for analgesia - thank you to GI for consult - ?possibly secondary to lisinopril or one of her many OTC supplements - EUS in May 2017 did not show gallstones or sludge. 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 - repeat LFTs and lipase -> nonobstructive picture. Lipase decreased from 13k to 2k UTI - urine grew gram negative bacilli - awaiting sensitivities - asymptomatic, but will treat - continue Ceftriaxone HTN - restart Lisinopril tomorrow Hypothyroidism - restart Synthroid tomorrow Code: Full DVT Prophylaxis: Lovenox Disposition: remains on med/surg Resident Physician Supervision Note: I interviewed and examined the patient. Discussed with the resident physician and agree with findings and plan as documented in the note. Any exceptions or clarifications are listed here: Upon my exam, the patient is without nausea or emesis; upon exam, she has not tenderness with palpation. PLAN 1) Slowly advance diet. 2) pancreatitis would be a rare adverse effect of MARIUSZ inhibitor. Her MARIUSZ is a rather low dose and currently on hold. Could always switch her to Norvasc 2.5 mg instead of MARIUSZ. Documented By: Ralph Johnson Resident Tracking Resident Involvement: Resident Care Provided Care Provided: Adult Hospital Medicine
[2017-10-11 07:25] VITALS: BP 109/67; PULSE 62; TEMP 36.6; O2SAT 96
[2017-10-11] MEDS: ENOXAPARIN 40 MG/0.4 ML SYR SQ SCH (07:45)
--- NOTE | 2017-10-11 07:55 | Gastrointestinal Consultation ---
Gastrointestinal Consultation Date of Consultation: Oct 11, 2017 Attending Physician: Bishnu Consulting Physician: Maday Reason for Consultation: recurrent panc History of Present Illness Patient is a 77 year old female w/ history of recurrent pancreatitis, etiology unclear, who was admitted for acute upper abdominal pain. GI was consulted as lipase >13,000 w/ CT imaging concerning for acute pancreatitis. Pt was seen and evaluated, chart reviewed. Pt notes history of reccurrent pancreatitis dating back to one year. In the course of this year, she has had three CT proven episodes of pancreatitis requiring hospitalization. However, she also notes she gets small flares about once a month for which she pushes fluids at home. Yesterday, developed severe upper abd pain, sharp stabbing w/ radiation under both breasts. There was associated nausea and vomiting, no resolved. Since admission, she notes improvement of nearly 90% of her symptoms, today she has mild lingering upper abd pain. No fever, chills, CP, SOB. Supplements: Vit D3, Vit B, Vit B10, azo, lutin, 7 wild vegetable supplement, curcumin, krill oil, cranberry Medications: ASA, lisinopril, ocuvite, zantac, synthroid, zofran CT ABD/Pelvis 10/10/17: Moderate infiltration centered on the pancreatic tail extending into the leftupper quadrant consistent with acute pancreatitis. No evidence for gland necrosis. No biliary or pancreatic ductal dilatation. Patent splenic vein. Large hiatal hernia with partially intrathoracic stomach. Distal esophageal wall thickening is nonspecific but may reflect esophagitis. EGD 06/05/17: large Hiatal hernia.Normal stomach. Normal examined duodenum. EUS 06/05/17: A cystic lesion was seen in the pancreatic head.There was no sign of significant pathology in the common bile duct. There was no evidence of significant pathology in the left lobe of the liver.The celiac trunk was endosonographically normal. No specimens collected. Past Medical/Surgical History Medical Problems: (1) Acute pancreatitis Status: Acute (2) Acute pancreatitis Status: Acute (3) Hiatal hernia Status: Acute (4) Pancreatitis Status: Acute Past Medical History: HTN, hypothyroidism, hiatal hernia, recurrent pancreatitis Past Surgical History: EGD, EUS Family History Heart disease Hypertension Kidney disease Lung disease Social History Smoking Status: Never Smoker Alcohol Use: none Drug Use: none Marital Status: Housing Status: lives with family Occupation Status: retired Allergies Coded Allergies: Morphine (Verified Allergy, Intermediate, RASH, 09/02/16) Hives Gluten (Verified Allergy, Mild, GI SYMPTOMS, 01/27/17) Iodinated Diagnostic Agents (Verified Allergy, Unknown, RASH, 09/02/16) Latex1 -Allergic Contact Dermititis (Verified Allergy, Unknown, HIVES, ) Current Medications Home Meds and Scripts Medications Dose Route/Sig Max Daily Dose Days Date Category Krill Oil 1 Cap Cap 1 Cap PO DAILY 10/10/17 Reported Synthroid (Levothyroxine Sodium) 88 Mcg Tab 88 Mcg PO DAILY 10/10/17 Reported Lutein W/Zeaxanthin (Lutein-Zeaxanthin) 1 Tab Tab 1 Tab PO DAILY 01/27/17 Reported Cranberry (Cranberry (Vaccinium Macrocarp) 125 Mg Tab 125 Mg PO DAILY 01/27/17 Reported Biotin 5000 (Biotin) 5 Mg Cap 5 Mg PO DAILY 01/27/17 Reported Vitamin B-12 (Cyanocobalamin) 1,000 Mcg Tab 1,000 Mcg PO DAILY 01/27/17 Reported Probiotic (Probiotic Product) 1 Cap Cap 1 Cap PO DAILY 09/02/16 Reported Multi Vitamin Daily (Multiple Vitamin) 1 Tab Tab 1 Tab PO DAILY 10/31/14 Reported Lisinopril 10 Mg Tab 10 Mg DAILY 10/31/14 Reported Restasis (Cyclosporine (Ophth)) 0.05 % Emu 1 Drop OPB BID 10/31/14 Reported Review of Systems Constitutional: No fever, No chills, No sweats, No weight loss, No weakness, No fatigue ENT: No unusual epistaxis, No nasal symptoms, No tinnitus, No trouble swallowing, No pain on swallowing Respiratory: No cough, No sputum, No wheezing, No shortness of breath, No dyspnea on exertion Cardiac: No chest pain, No orthopnea, No edema, No claudication Abdomen: + pain, + nausea, No vomiting, No diarrhea, No constipation, No GI bleeding, No dysphagia, No odynophagia, No jaundice, No dark urine Female : No dysuria, No urinary frequency, No hematuria Endo: No fatigue, No excessive thirst, No excessive urination Skin: No rash, No itch, No color change, No bleeding, No jaundice Physical Exam Date Time Temp Pulse Resp B/P (MAP) Pulse Ox O2 Delivery O2 Flow Rate FiO2 2/28/18 07:25 36.6 62 20 109/67 (81) 96 Room Air 10/11/17 00:01 36.4 67 18 144/80 Room Air 10/10/17 23:30 36.4 67 18 144/80 (101) 96 Room Air 10/10/17 22:40 70 20 110/65 98 10/10/17 21:35 69 14 115/65 93 Room Air 10/10/17 20:00 72 24 131/68 97 Room Air 10/10/17 19:36 73 10/10/17 19:30 71 18 132/65 96 Room Air 10/10/17 19:02 74 18 144/67 97 Room Air 10/10/17 18:00 37.0 84 18 168/71 95 Room Air General Appearance: no apparent distress Eyes: PERRL ENT: hearing grossly normal Neck: supple, no adenopathy, no JVD, trachea midline Respiratory/Chest: lungs clear, normal breath sounds, no respiratory distress, no accessory muscle use Cardiovascular: regular rate, rhythm, no edema, no gallop, no JVD Abdomen: normal bowel sounds, soft, no organomegaly, no pulsatile mass, + tenderness (minimal tenderness on palpation) Neurologic/Psych: alert, normal mood/affect, oriented x 3 Skin: normal color, no jaundice, warm/dry, no rash Laboratory Results Last 24 Hours Test 10/10/17 18:20 10/10/17 19:00 10/11/17 05:20 Urine Color YELLOW Urine Appearance CLEAR Urine pH 6.5 Urine Specific [place] 1.019 Urine Protein NEG Urine Glucose (UA) NEG Urine Ketones 1+ Urine Occult Blood 1+ Urine Nitrite NEG Urine Bilirubin NEG Urine Urobilinogen NEG Urine Leukocyte Esterase SMALL Urine WBC (Auto) >30 /hpf Urine RBC (Auto) 5-10 /hpf Urine Hyaline Casts (Auto) 5-10 /lpf Urine Epithelial Cells (Auto) 20-30 /lpf Urine Bacteria (Auto) 3+ White Blood Count 17.35 K/uL Red Blood Count 4.39 M/uL Hemoglobin 14.4 g/dL Hematocrit 42.4 % Mean Corpuscular Volume 96.6 fL Mean Corpuscular Hemoglobin 32.8 pg Mean Corpuscular Hemoglobin Concent 34.0 g/dl Platelet Count 312 K/uL Mean Platelet Volume 9.5 fL Neutrophils (%) (Auto) 89.1 % Lymphocytes (%) (Auto) 5.6 % Monocytes (%) (Auto) 4.6 % Eosinophils (%) (Auto) 0.2 % Basophils (%) (Auto) 0.2 % Neutrophils # (Auto) 15.46 K/uL Lymphocytes # (Auto) 0.97 K/uL Monocytes # (Auto) 0.79 K/uL Eosinophils # (Auto) 0.04 K/uL Basophils # (Auto) 0.04 K/uL RDW Standard Deviation 45.8 fL RDW Coefficient of Variation 13.0 % Immature Granulocyte % (Auto) 0.3 % Immature Granulocyte # (Auto) 0.05 K/uL Sodium Level 140 mmol/L 141 mmol/L Potassium Level 3.8 mmol/L 4.2 mmol/L Chloride Level 107 mmol/L 110 mmol/L Carbon Dioxide Level 28 mmol/L 26 mmol/L Anion Gap 6.0 mmol/L 5.0 mmol/L Blood Urea Nitrogen 20 mg/dl 14 mg/dl Creatinine 0.69 mg/dl 0.52 mg/dl Est Creatinine Clear Calc Drug Dose 64.9 ml/min 86.1 ml/min Estimated GFR () 96.6 106.1 Estimated GFR (Non- 83.4 91.5 BUN/Creatinine Ratio 28.6 27.3 Random Glucose 159 mg/dl 77 mg/dl Calcium Level 8.6 mg/dl 8.2 mg/dl Total Bilirubin 0.4 mg/dl Direct Bilirubin 0.1 mg/dl Aspartate Amino Transf (AST/SGOT) 11 U/L Alanine Aminotransferase (ALT/SGPT) 20 U/L Alkaline Phosphatase 63 U/L Troponin I < 0.015 ng/ml Total Protein 7.0 gm/dl Albumin 3.5 gm/dl Lipase 35528 U/L Prothrombin Time 10.4 SECONDS Prothromb Time International Ratio 1.0 Magnesium Level 1.8 mg/dl Impression Patient is a 77 year old female w/ third episode of recurrent pancreatitis x 1 year. She has her GB. EUS in May w/o GB stones or sludge but does have a pancreatic head cyst. Her symptoms are concerning for gallstone pancreatis, will need LFTs and lipase this AM for reassessment. She is also on 10+ daily supplements in additional to her prescribed medications. Perhaps these episodes are medication induced. Source of her leukocytosis is unclear, will need LFTs to rule out obstruction. Plan - LFTs today - Lipase today - IVF 200 ml/hr - Clear liquid - If pt tolerates, can advance to low fat diet for dinner - Analgesia PRN - Antiemetics PRN - Possible medications lisinopril class III - GI to follow, please call with any acute changes, questions or concerns ATTESTATION: I have performed a history and physical examination of this patient and reviewed the electronic record. Specifically, on physical examination there is minimal epigastric tenderness to deep palpation. I have discussed the case with LEYDI Alfredo. The above note reflects my findings, conclusions, and recommendations. Rob Nassar MD
[2017-10-11 10:54] LABS: ALBUMIN 2.9 gm/dl (3.4-5.0); TOTAL PROTEIN 5.7 gm/dl (6.4-8.2)
[2017-10-11 15:26] VITALS: BP 137/73; PULSE 66; TEMP 36.6; O2SAT 95
[2017-10-11] MEDS ORDERED: CEFTRIAXONE SOD INJ 1 GM in DEXTROSE 5% ADD-VANTAGE 50ML 50 ML IV SCH (19:00)
[2017-10-11] MEDS: LACTATED RINGER'S 1000ML 1,000 ML IV SCH (20:12)
[2017-10-11 23:38] VITALS: BP 149/75; PULSE 66; TEMP 37; O2SAT 95
[2017-10-12] MEDS: LACTATED RINGER'S 1000ML 1,000 ML IV SCH (05:28)
[2017-10-12] MEDS ORDERED: LEVOTHYROXINE 88 MCG TAB PO SCH (07:00)
[2017-10-12 07:07] LABS: BASO % 1.3 %; BASO ABS # 0.07 K/uL (0-0.2); EOS % 6.4 %; EOS ABS # 0.34 K/uL (0-0.5); HEMATOCRIT 41.9 % (37-47); HEMOGLOBIN 13.6 g/dL (12.0-16.0); IG# 0.01 K/uL (0.00-0.02); LYMPH % 31.2 %; LYMPH ABS # 1.66 K/uL (1.2-3.4); MEAN CORPUSCULAR HEMOGLOBIN 31.5 pg (25-34); MEAN CORPUSCULAR HGB CONC 32.5 g/dl (32-36); MEAN PLATELET VOLUME 9.6 fL (7.4-10.4); MONO % 8.8 %; MONO ABS # 0.47 K/uL (0.11-0.59); NEUT % 52.1 %; NEUT ABS # 2.77 K/uL (1.4-6.5); PLATELET COUNT 310 K/uL (130-400); RED CELL DISTRIBUTION WIDTH CV 13.1 % (11.5-14.5); RED CELL DISTRIBUTION WIDTH SD 46.5 fL (36.4-46.3); WHITE BLOOD COUNT 5.32 K/uL (4.8-10.8)
[2017-10-12 07:14] VITALS: BP 139/83; PULSE 62; TEMP 36.5; O2SAT 96
[2017-10-12] MEDS: ENOXAPARIN 40 MG/0.4 ML SYR SQ SCH (07:28)
[2017-10-12 07:37] LABS: ALBUMIN 3.3 gm/dl (3.4-5.0); CALCIUM 9.1 mg/dl (8.5-10.1); CREATININE 0.55 mg/dl (0.60-1.20)
[2017-10-12 07:40] LABS: TOTAL PROTEIN 6.7 gm/dl (6.4-8.2)
--- NOTE | 2017-10-12 10:03 | Gastroenterology Progress Note ---
Progress Note Date of Service: Oct 12, 2017 Subjective Pt evaluation today including: conversation w/ patient, physical exam, chart review, lab review Pt seen and evaluated, chart reviewed. Had diet advanced to low fat. Is tolerating and feeling well. No abdominal pain, fever, chills, nausea, vomiting , CP, SOB. She notes her symptoms are 100% resolved, wants to go home. Supplements: Vit D3, Vit B, Vit B10, azo, lutin, 7 wild vegetable supplement, curcumin, krill oil, cranberry Medications: ASA, lisinopril, ocuvite, zantac, synthroid, zofran CT ABD/Pelvis 10/10/17: Moderate infiltration centered on the pancreatic tail extending into the leftupper quadrant consistent with acute pancreatitis. No evidence for gland necrosis. No biliary or pancreatic ductal dilatation. Patent splenic vein. Large hiatal hernia with partially intrathoracic stomach. Distal esophageal wall thickening is nonspecific but may reflect esophagitis. EGD 06/05/17: large Hiatal hernia.Normal stomach. Normal examined duodenum. EUS 06/05/17: A cystic lesion was seen in the pancreatic head.There was no sign of significant pathology in the common bile duct. There was no evidence of significant pathology in the left lobe of the liver.The celiac trunk was endosonographically normal. No specimens collected. Review of Systems Constitutional: No fever, No chills, No sweats, No weight loss, No weakness, No fatigue Respiratory: No cough, No sputum, No shortness of breath, No dyspnea on exertion Cardiac: No chest pain, No orthopnea, No edema, No claudication Abdomen: No pain, No nausea, No vomiting, No diarrhea, No constipation, No GI bleeding, No dysphagia, No odynophagia, No acolic stools, No jaundice Female : No dysuria, No urinary frequency, No incontinence Endo: No fatigue Skin: No rash, No itch, No color change, No bleeding Medications Current Inpatient Medications Medications (Trade) Dose Ordered Sig/Angeles Route Start Time Stop Time Status Last Admin Dose Admin Ioversol (Optiray 320) 111 ml UD PRN IV 10/10/17 20:00 10/14/17 19:59 Enoxaparin Sodium (Lovenox Inj) 40 mg Q24H SQ 10/11/17 08:00 11/10/17 07:59 10/12/17 07:28 40 MG Acetaminophen (Tylenol Tab) 650 mg Q4H PRN PO 10/10/17 22:15 11/09/17 22:14 Al Hydrox/Mg Hydrox/Simethicone (Maalox Max Susp) 15 ml Q4H PRN PO 10/10/17 22:15 11/09/17 22:14 Magnesium Hydroxide (Milk Of Magnesia Susp) 30 ml Q6H PRN PO 10/10/17 22:15 11/09/17 22:14 Polyethylene (Miralax Powder Packet) 17 gm DAILY PRN PO 10/10/17 22:15 11/09/17 22:14 Zolpidem Tartrate (Ambien Tab) 5 mg HSZ PRN PO 10/10/17 22:15 11/09/17 22:14 Ondansetron HCl (Zofran Inj) 4 mg Q6H PRN IV 10/10/17 22:15 11/09/17 22:14 Hydromorphone HCl (Dilaudid Inj) 0.5 mg Q3H PRN IV 10/10/17 22:30 10/24/17 22:29 10/10/17 23:35 0.5 MG Ceftriaxone Sodium 1 gm/ Dextrose 50 ml @ 100 mls/hr Q24H IV 10/11/17 19:00 10/16/17 18:59 10/11/17 19:19 100 MLS/HR Levothyroxine Sodium (Synthroid Tab) 88 mcg DAILYBB PO 10/12/17 07:00 11/11/17 06:59 10/12/17 07:37 88 MCG Objective Vital Signs Date Time Temp Pulse Resp B/P (MAP) Pulse Ox O2 Delivery O2 Flow Rate FiO2 10/12/17 08:00 Room Air 10/12/17 07:14 36.5 62 20 139/83 (101) 96 Room Air 10/12/17 00:00 Room Air 10/11/17 23:38 37.0 66 18 149/75 (99) 95 Room Air 10/11/17 16:30 Room Air 10/11/17 15:26 36.6 66 19 137/73 (94) 95 Room Air Physical Exam General Appearance: no apparent distress Eyes: PERRL ENT: hearing grossly normal, pharynx normal Neck: supple, no adenopathy, thyroid normal, trachea midline Respiratory/Chest: lungs clear, normal breath sounds, no respiratory distress, no accessory muscle use Cardiovascular: regular rate, rhythm, no edema, no gallop, no JVD, no murmur Abdomen: normal bowel sounds, non tender, soft, no organomegaly, no pulsatile mass Neurologic/Psych: alert, normal mood/affect, oriented x 3 Skin: normal color, no jaundice, warm/dry, no rash Laboratory Results Last 24 Hours Test 10/12/17 06:16 White Blood Count 5.32 K/uL Red Blood Count 4.32 M/uL Hemoglobin 13.6 g/dL Hematocrit 41.9 % Mean Corpuscular Volume 97.0 fL Mean Corpuscular Hemoglobin 31.5 pg Mean Corpuscular Hemoglobin Concent 32.5 g/dl Platelet Count 310 K/uL Mean Platelet Volume 9.6 fL Neutrophils (%) (Auto) 52.1 % Lymphocytes (%) (Auto) 31.2 % Monocytes (%) (Auto) 8.8 % Eosinophils (%) (Auto) 6.4 % Basophils (%) (Auto) 1.3 % Neutrophils # (Auto) 2.77 K/uL Lymphocytes # (Auto) 1.66 K/uL Monocytes # (Auto) 0.47 K/uL Eosinophils # (Auto) 0.34 K/uL Basophils # (Auto) 0.07 K/uL RDW Standard Deviation 46.5 fL RDW Coefficient of Variation 13.1 % Immature Granulocyte % (Auto) 0.2 % Immature Granulocyte # (Auto) 0.01 K/uL Sodium Level 140 mmol/L Potassium Level 4.0 mmol/L Chloride Level 108 mmol/L Carbon Dioxide Level 25 mmol/L Anion Gap 7.0 mmol/L Blood Urea Nitrogen 9 mg/dl Creatinine 0.55 mg/dl Est Creatinine Clear Calc Drug Dose 81.4 ml/min Estimated GFR () 104.1 Estimated GFR (Non- 89.8 BUN/Creatinine Ratio 16.7 Random Glucose 81 mg/dl Calcium Level 9.1 mg/dl Total Bilirubin 0.9 mg/dl Aspartate Amino Transf (AST/SGOT) 13 U/L Alanine Aminotransferase (ALT/SGPT) 16 U/L Alkaline Phosphatase 48 U/L Total Protein 6.7 gm/dl Albumin 3.3 gm/dl Globulin 3.4 gm/dl Albumin/Globulin Ratio 1.0 Lipase 256 U/L Assessment and Plan Patient is a 77 year old female w/ third episode of recurrent pancreatitis x 1 year. She has her GB. EUS in May w/o GB stones or sludge but does have a pancreatic head cyst. Her symptoms are concerning for gallstone pancreatis, will need LFTs and lipase this AM for reassessment. She is also on 10+ daily supplements in additional to her prescribed medications. Perhaps these episodes are medication induced. Symptoms resolved, tolerating diet. Recurrent pancreatitis likely secondary to IPMN - Low fat diet as tolerated - OP GI follow up as previously scheduled GI to sign off. No GI contraindication to discharge. Please call with any questions, concerns or acute changes ATTESTATION: I have performed a history and physical examination of this patient and reviewed the electronic record. Specifically, on physical examination abdomen is tender in the epigastrium. I have discussed the case with LEYDI Alfredo. The above note reflects my findings, conclusions, and recommendations. Rob Nassar MD
[2017-10-12] MEDS ORDERED: CEPH500C PO ×2 (10:19→10:20)
--- NOTE | 2017-10-12 10:21 | Discharge Instructions ---
Discharge Instructions Date of Service Oct 12, 2017. Admission Reason for Admission: Acute Pancreatitis Discharge Discharge Diagnosis / Problem: Acute Pancreatitis Discharge Goals Goal(s): Decrease discomfort, Improve function, Improve disease control Activity Recommendations Activity Limitations: resume your previous activity . Instructions / Follow-Up Instructions / Follow-Up You were admitted to [facility] due to another episode of pancreatitis. We treated you with IV fluids, and pain medications, and slowly restarted your diet. Pancreatitis - you were seen by gastroenterology, and they will be following up with your in their clinic - we are unsure of the cause of your pancreatitis - it could be due to your lisinopril or possibly the small cyst on your pancreas - we will be stopping your lisinopril, in case that is the cause - please continue to eat low-fat meals, and seek medical attention if you develop similar abdominal pain, nausea, vomiting or fever/chills High blood pressure - stop your lisinopril - your blood pressure in the hospital has been borderline high - please continue taking your blood pressure at home and follow up with your regular doctor about alternative blood pressure medication, if needed Urinary Tract Infection - your urine culture did grow some bacteria here, although you did not report any symptoms - we treated you with one dose of IV antibiotics and will be prescribed 4 more days of antibiotics for you to take to finish a 5 day course Current Hospital Diet Patient's current hospital diet: Low Fat Diet Discharge Diet Recommended Diet: Low Fat Diet Pending Studies Studies pending at discharge: no Medical Emergencies . Who to Call and When: Medical Emergencies: If at any time you feel your situation is an emergency, please call 911 immediately. . Non-Emergent Contact Non-Emergency issues call your: Primary Care Provider . . "Provider Documentation" section prepared by Roas Paz. .
--- NOTE | 2017-10-12 11:33 | Discharge Summary ---
Discharge Summary Date of Service Oct 12, 2017. Discharge Summary Admission Date: Oct 10, 2017 at 22:16 Discharge Date: Oct 12, 2017 Discharge Disposition: Home Principal Diagnosis: Acute Pancreatitis & UTI Problems/Secondary Diagnoses: 1) Hypertension 2) Hypothyroidism Procedures: CT OF THE ABDOMEN AND PELVIS WITH CONTRAST CLINICAL HISTORY: Epigastric and right-sided abdominal pain. Nausea and vomiting. History of pancreatitis. COMPARISON STUDY: CT of the abdomen and pelvis September 02, 2016 and MRCP January 27, 2017. TECHNIQUE: Patient was premedicated for IV dye allergy as per ER protocol. Following IV administration of 92 mL of Optiray-320, axial images of the abdomen and pelvis were obtained from the lung bases to the proximal femurs. Images were reviewed in the axial, sagittal, and coronal planes. IV contrast was administered without complication. A dose lowering technique was utilized adhering to the principles of ALARA. CT DOSE: 603.58 mGy.cm FINDINGS: Visualized portions of the lower chest demonstrate a calcified granuloma within the left lower lobe and a calcified left hilar lymph node. There is a large lateral hernia with partially intrathoracic stomach. There is possible wall thickening of the distal esophagus. This was shown on previous exam. No pneumatosis, free air or portal venous gas is present. The liver, spleen, adrenal glands are unremarkable with exception of calcified granulomas within the spleen. There is moderate infiltration and fluid centered on the pancreatic tail. Is no evidence for gland necrosis. There is no well-defined peripancreatic fluid collection. There are renal cortical and parapelvic cysts. Several subcentimeter renal lesions are too small to characterize. There is no evidence for a bowel obstruction. The appendix is normal. There is colonic diverticulosis without evidence for acute diverticulitis. There are multiple suspected uterine fibroids. There are no suspicious osseous lesions. The splenic vein is patent. IMPRESSION: 1. Moderate infiltration centered on the pancreatic tail extending into the left upper quadrant consistent with acute pancreatitis. No evidence for gland necrosis. No biliary or pancreatic ductal dilatation. Patent splenic vein. 2. Large hiatal hernia with partially intrathoracic stomach. Distal esophageal wall thickening is nonspecific but may reflect esophagitis CHEST ONE VIEW PORTABLE CLINICAL HISTORY: Abdominal pain. COMPARISON STUDY: Chest radiograph September 02, 2016. FINDINGS: A large hiatal hernia with intrathoracic stomach is noted. Calcified left lower lobe granuloma is noted as well as calcified left hilar lymph nodes. There is no pneumothorax or pleural effusion. Pulmonary vascularity is normal. There is no consolidation to suggest pneumonia. There is no lucency under the hemidiaphragms to suggest pneumoperitoneum on this exam. Cardiomediastinal silhouette is stable. IMPRESSION: 1. No acute cardiopulmonary findings. No change in appearance the chest. 2. Large hiatal hernia with partially intrathoracic stomach. Consultations: Gastroenterology Medication Reconciliation New Medications: Cephalexin Monohydrate (Keflex) 500 Mg Cap 1 CAP PO BID for 4 Days, #8 CAP Continued Medications: Biotin (Biotin 5000) 5 Mg Cap 5 MG PO DAILY Cranberry (Vaccinium Macrocarp (Cranberry) 125 Mg Tab 125 MG PO DAILY Cyanocobalamin (Vitamin B-12) 1,000 Mcg Tab 1000 MCG PO DAILY, TAB Cyclosporine (Ophth) (Restasis) 0.05 % Emu 1 DROP OPB BID Krill Oil (Krill Oil) 1 Cap Cap 1 CAP PO DAILY Levothyroxine Sodium (Synthroid) 88 Mcg Tab 88 MCG PO DAILY Lutein-Zeaxanthin (Lutein W/Zeaxanthin) 1 Tab Tab 1 TAB PO DAILY Multiple Vitamin (Multi Vitamin Daily) 1 Tab Tab 1 TAB PO DAILY Probiotic Product (Probiotic) 1 Cap Cap 1 CAP PO DAILY Discontinued Medications: Lisinopril (Lisinopril) 10 Mg Tab 10 MG DAILY Discharge Exam Ms. Vidales reports she feels well today. She ate a low fat meal last night for dinner and for breakfast this morning and states she was able to tolerate this without any pain, nausea or vomiting. She continues to deny any urinary symptoms. She reports she feels well and would like to be discharged. Review of Systems: Constitutional: No fever, No chills Respiratory: No cough, No shortness of breath Cardiovascular: No chest pain Abdomen: No pain, No nausea, No vomiting Genitourinary - Female: No dysuria, No urinary frequency, No urinary urgency , No urinary incontinence, No hematuria Physical Exam: General Appearance: WD/WN, no apparent distress Respiratory/Chest: chest non-tender, lungs clear, normal breath sounds Cardiovascular: regular rate, rhythm, no edema, no gallop, no murmur Abdomen / GI: non tender, soft Hospital Course Ms. Vidales is a 77 year old female with a history of HTN, hypothyroidism, hiatal hernia, recurrent pancreatitis of undetermined etiology. The pt presented with abdominal pain, nausea and several episodes of vomiting over the past few hours. Initial labs are notable for an elevated lipase and a (+) UA. CT abdomen is consistent with recurrence of acute pancreatitis. Acute pancreatitis - treated with IVF, bowel rest and analgesia - initially made NPO and then slowly advanced diet to clear liquids and then low fat - Gastroenterology was consulted - ?possibly secondary to lisinopril or IPMNs - EUS in May 2017 did not show gallstones or sludge. - LFTs did not show an obstructive picture. Lipase 13k on admission and 256 on d/c - GI outpatient follow up on discharge UTI - urine grew pansensitive gram negative bacilli - asymptomatic, but was treated with IV ceftriaxone x1 day - d/c on Keflex 500mg BID for 4 days for a total course of 5 days HTN - stop lisinopril as it could possibly be related to the recurrent pancreatitis - BPs here without lisinopril have been borderline at 130s-140s systolic/ 70s- 80s diastolic - pt states she has BP machine at home, will measure BP and f/u with primary care doctor in case she does need to be put on another med (?norvasc 2.5mg) Hypothyroidism - continue synthroid Resident Physician Supervision Note: I was present with the resident during the history and exam. I discussed the case with the resident and agree with the findings and plan as documented in the note. Any exceptions or clarifications are listed here: The patient's pancreatic enzymes have normalized and she was tolerating a full diet without any nausea vomiting. The cause of her recurrent pancreatitis is not clear; question was raised whether the lisinopril she is on could be contributing factor since there is some literature suggesting that kita inhibitors are a rare cause of pancreatitis. Her lisinopril was held during her hospitalization and her blood pressures remained reasonable (130s to 140s systolic). She'll be discharged off of her lisinopril and will follow-up with her primary care physician for reevaluation. 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 Documented By: Ralph Johnson Total Time Spent: Less than 30 minutes This includes examination of the patient, discharge planning, medication reconciliation, and communication with other providers. Discharge Instructions Please refer to the electronic Patient Visit Report (Discharge Instructions) for additional information. Additional Copies To Mckay Harley D.O.; Pro,Rob Cline M.D. Resident Tracking Resident Involvement: Resident Care Provided Care Provided: [facility]
[2017-10-12 12:36] VITALS: BP 139/83; PULSE 62; TEMP 36.5; O2SAT 96
== END 2017-10-12 14:05 | disposition home or self-care (01) | DRG 689 ==
LOC: EDBD 17:49 → C.EDA 17:50 → C.4E 22:16 → CANRESERV 22:32 → ENRESERV 22:32
PROVIDERS: ADMIT Internal Medicine; ATTEND Family Medicine
DX: N39.0 Urinary tract infection, site not specified (principal); K85.90 Acute pancreatitis without necrosis or infection, unspecified; K86.2 Cyst of pancreas; K86.1 Other chronic pancreatitis; Z87.442 Personal history of urinary calculi; I10 Essential (primary) hypertension; E03.9 Hypothyroidism, unspecified; K44.9 Diaphragmatic hernia without obstruction or gangrene; B96.89 Other specified bacterial agents as the cause of diseases classified elsewhere; Z91.040 Latex allergy status

== ENCOUNTER → 2018-03-16 | Outpatient (CLI) | payer OTHER ==
[~2018-03-16] MED LIST changes: -ASPCH81X PO; -BIOTCAP2 PO; -FISH1CAP8 PO; +KRIL1000 PO; -LEVO88TA3; -LISI-461; -METR0.754 TOP; -MULT-188 PO; -OMEG10007 PO; +PANC1200 PO; +SYN88 PO; +ZYR10 PO
[2018-03-16 17:44] LABS: HEMATOCRIT 44.2 % (37-47); HEMOGLOBIN 14.3 g/dL (12.0-16.0); MEAN CELL VOLUME 98.2 fL (80-100); MEAN CORPUSCULAR HEMOGLOBIN 31.8 pg (25-34); MEAN CORPUSCULAR HGB CONC 32.4 g/dl (32-36); MEAN PLATELET VOLUME 9.5 fL (7.4-10.4); PLATELET COUNT 341 K/uL (130-400); WHITE BLOOD COUNT 6.03 K/uL (4.8-10.8)
[2018-03-16 18:13] LABS: ALBUMIN 3.9 gm/dl (3.4-5.0); ALKALINE PHOSPHATASE 65 U/L (45-117); ALT/SGPT 21 U/L (12-78); AST/SGOT 18 U/L (15-37); BLOOD UREA NITROGEN 17 mg/dl (7-18); CALCIUM 9.4 mg/dl (8.5-10.1); CARBON DIOXIDE 30 mmol/L (21-32); CREATININE 0.53 mg/dl (0.60-1.20); GLUCOSE 95 mg/dl (70-99); LIPASE 171 U/L (73-393); POTASSIUM 4.1 mmol/L (3.5-5.1); SODIUM 139 mmol/L (136-145); TOTAL PROTEIN 7.3 gm/dl (6.4-8.2)
== END | disposition home or self-care (01) ==
LOC: C.LAB1850 17:10
PROVIDERS: ATTEND Internal Medicine
DX: K85.90 Acute pancreatitis without necrosis or infection, unspecified (principal); Z86.19 Personal history of other infectious and parasitic diseases

== ENCOUNTER 2018-08-26 10:54 | Observation (INO) ==
[2018-08-26] MEDS ORDERED: SODIUM CHLORIDE 0.9% 1000ML 1,000 ML IV ONE (11:07)
[2018-08-26] MEDS ORDERED: ONDANSETRON INJ 2 MG/ML 2 ML VIAL IV STA (11:07)
[2018-08-26] MEDS ORDERED: HYDROmorphone INJ 1 MG/ML SYRINGE IV STA (11:09)
--- NOTE | 2018-08-26 11:30 | Emergency Department Note ---
History of Present Illness General Chief complaint: Abdominal Pain Stated complaint: ABD PAIN VOMITING Time Seen by Provider: 08/26/18 11:02 History of Present Illness Maximum Pain Intensity: 10 This 78-year-old female presents the ER with her with chief complaint of severe upper abdominal and back pain. The patient states that she has a history of pancreatitis and this feels the same. The patient states that they cannot find out why she gets the recurrent pancreatitis. The patient admits to nausea and vomiting along with the pain for the past few hours. The patient rates the pain at a 10 out of 10. The patient denies any change in bowel habits. She denies any diarrhea, melena or hematochezia. The patient denies any urinary symptoms of frequency, urgency, dysuria or hematuria. The patient' s family doctor is Dr. Mayers. She is followed by Dr. ledbetter, gastroenterology Home Medications Home Medications Medication Instructions Recorded Confirmed Type aspirin 81 mg PO DAILY 07/29/18 08/26/18 History cyclosporine [Restasis] 1 drp OPHTHALMIC (EYE) Q12H 07/29/18 08/26/18 History epinephrine [EpiPen] 0.3 mg IM UD PRN 07/29/18 08/26/18 History levothyroxine [Synthroid] 88 mcg PO DAILY 07/29/18 08/26/18 History [id number] [Creon] 3 cap PO TID 07/29/18 08/26/18 History melatonin 3 mg PO HS PRN 07/29/18 08/26/18 History Allergies Allergy/AdvReac Type Severity Reaction Status Date / Time morphine Allergy Intermediate RASH Verified 08/26/18 11:33 Iodinated Contrast- Oral and Allergy Unknown RASH Verified 08/26/18 11:33 IV Dye latex Allergy Unknown HIVES Verified 08/26/18 11:33 Past Med/Surg History Medical History Microscopic hematuria Recurrent pancreatitis Hiatal hernia Hypertension Hypothyroidism Lyme disease Surgical History S/P bunionectomy right foot X 2 S/P tonsillectomy and adenoidectomy age 14 years Social History Current Living Situation: Family Other Information That Helps Us Care for You: No Feels Safe at Home: Yes Safety Concerns: Feels Safe At This Time Smoking Status: Never smoker Hx Alcohol Use: No Hx Substance Use: No Beliefs That Will Affect Care: None Preferred Language: Albanian Review of Systems A total of 10 systems reviewed and were otherwise negative Physical Exam Vital Signs Vital Signs - 24 hr 08/27/18 17:06 Temperature 36.5 C Pulse Rate [Finger] 16 L Respiratory Rate 18 Blood Pressure [Left Arm] 144/80 H Pulse Oximetry 94 GENERAL: 78-year-old white female appears very uncomfortable secondary to abdominal pain. MENTAL Status: Alert and oriented x3. MOUTH: Mucosa is moist NECK: Supple, no lymphadenopathy noted. No carotid bruits noted. LUNGS: Clear auscultation without wheezes rales or rhonchi. CARDIAC: Regular rate and rhythm without murmur. Pulses is full and equal throughout. BACK: No CVA tenderness noted. ABDOMEN: Positive bowel sounds all 4 quadrants. Soft, severe tenderness palpation in the epigastric region otherwise nontender to palpation without organomegaly or masses. EXTREMITIES: No cyanosis or edema noted. Course Administered Medications Discontinued Medications Lipase/Protease/Amylase (Pancreaze (Lipase 10,500u)) 3 cap PO TID [facility] Stop: 09/25/18 16:06 Last Admin: 08/27/18 14:03 Dose: 3 cap Admin: 08/27/18 08:43 Dose: 3 cap Admin: 08/26/18 21:29 Dose: 3 cap Admin: 08/26/18 17:44 Dose: 3 cap Hydromorphone HCl (Dilaudid) 1 mg IV NOW STA Stop: 08/26/18 11:10 Last Admin: 08/26/18 11:45 Dose: 1 mg Sodium Chloride (Nss 1000ml) 1,000 mls @ 999 mls/hr IV .Q1H1M ONE Stop: 08/26/18 12:07 Last Infusion: 08/26/18 12:44 Dose: 0 mls/hr Admin: 08/26/18 11:30 Dose: 999 mls/hr Lactated Ringer's (Lr) 1,000 mls @ 200 mls/hr IV .Q5H SILVA Stop: 08/27/18 02:06 Last Infusion: 08/27/18 02:28 Dose: 0 mls/hr Admin: 08/26/18 21:28 Dose: 200 mls/hr Infusion: 08/26/18 21:21 Dose: 200 mls/hr Admin: 08/26/18 16:21 Dose: 200 mls/hr Levothyroxine Sodium (Synthroid) 88 mcg PO DAILYBB [facility] Stop: 09/26/18 06:29 Last Admin: 08/27/18 06:26 Dose: 88 mcg Miscellaneous (Order Awaiting Action) 1 ea N/A QS SILVA Stop: 09/26/18 00:00 Last Admin: 08/27/18 14:04 Dose: Not Given Admin: 08/27/18 08:44 Dose: Not Given Admin: 08/26/18 23:48 Dose: Not Given Ondansetron HCl (Zofran) 4 mg IV NOW STA Stop: 08/26/18 11:08 Last Admin: 08/26/18 11:40 Dose: 4 mg Medical Decision Making Differential Diagnosis Acute pancreatitis, acute gastritis, GERD, Medical Records Attestation: I reviewed the patient's medical records. Laboratory Data Attestation: I reviewed the patient's lab results. Result diagrams: 08/27/18 08:20 08/27/18 08:20 Lab Results 08/26/18 08/26/18 08/26/18 Range/Units 11:40 11:40 11:40 WBC 9.24 (4.8-10.8) K/uL RBC 4.65 (4.2-5.4) M/uL Hgb 14.9 (12.0-16.0) g/dL Hct 45.1 (37-47) % MCV 97.0 (80-100) fL MCH 32.0 (25-34) pg MCHC 33.0 (32-36) g/dL RDW Std Deviation 44.9 (36.4-46.3) fL RDW Coeff of Estrellita 12.7 (11.5-14.5) % Plt Count 330 (130-400) K/uL MPV 9.7 (7.4-10.4) fL Immature Gran % (Auto) 0.2 % Neut % (Auto) 88.6 % Lymph % (Auto) 6.7 % [place] % (Auto) 4.0 % Eos % (Auto) 0.1 % Baso % (Auto) 0.4 % Immature Gran # (Auto) 0.02 (0.00-0.02) K/uL Neut # (Auto) 8.18 H (1.4-6.5) K/uL Lymph # (Auto) 0.62 L (1.2-3.4) K/uL [place] # (Auto) 0.37 (0.11-0.59) K/uL Eos # (Auto) 0.01 (0-0.5) K/uL Baso # (Auto) 0.04 (0-0.2) K/uL Sodium 139 (136-145) mmol/L Potassium 3.5 (3.5-5.1) mmol/L Chloride 102 (98-107) mmol/L Carbon Dioxide 25 (21-32) mmol/L Anion Gap 12.0 H (3-11) BUN 15 (7-18) mg/dl Creatinine 0.63 (0.6-1.2) mg/dl Est Cr Clr Drug Dosing 67.1 ml/min Est GFR ( Amer) 98.9 Est GFR (Non-Af Amer) 85.3 BUN/Creatinine Ratio 24.1 H (10-20) Glucose 157 H (70-99) mg/dl Estimat Average Glucose 111 mg/dl Hemoglobin A1c 5.5 (4.5-5.6) % Calcium 9.3 (8.5-10.1) mg/dl Total Bilirubin 0.6 (0.2-1) mg/dl Direct Bilirubin (0-0.2) mg/dl AST 17 (15-37) U/L ALT 24 (12-78) U/L Alkaline Phosphatase 63 (45-117) U/L Total Protein 7.7 (6.4-8.2) gm/dl Albumin 3.7 (3.4-5.0) gm/dl Globulin 4.0 (2.5-4.0) gm/dl Albumin/Globulin Ratio 0.9 (0.9-2) Lipase 07101 H (73-393) U/L Urine Color Urine Appearance (Clear) Urine pH (4.5-7.5) Ur Specific [place] (1.000-1.030) Urine Protein (Negative) Urine Glucose (UA) (Negative) Urine Ketones (Negative) Urine Blood (Negative) Urine Nitrite (Negative) Urine Bilirubin (Negative) Urine Urobilinogen (Negative) Ur Leukocyte Esterase (Negative) Urine WBC (Auto) (0-5) /hpf Urine RBC (Auto) (0-4) /hpf U Hyaline Cast (Auto) (0-5) /lpf U Epithel Cells (Auto) (0-5) /lpf Urine Bacteria (Auto) (Negative) 08/26/18 08/27/18 08/27/18 Range/Units 11:45 08:20 08:20 WBC 6.21 (4.8-10.8) K/uL RBC 4.32 (4.2-5.4) M/uL Hgb 14.0 (12.0-16.0) g/dL Hct 42.5 (37-47) % MCV 98.4 (80-100) fL MCH 32.4 (25-34) pg MCHC 32.9 (32-36) g/dL RDW Std Deviation 46.0 (36.4-46.3) fL RDW Coeff of Estrellita 12.8 (11.5-14.5) % Plt Count 303 (130-400) K/uL MPV 9.1 (7.4-10.4) fL Immature Gran % (Auto) 0.3 % Neut % (Auto) 66.0 % Lymph % (Auto) 22.7 % [place] % (Auto) 8.5 % Eos % (Auto) 1.9 % Baso % (Auto) 0.6 % Immature Gran # (Auto) 0.02 (0.00-0.02) K/uL Neut # (Auto) 4.09 (1.4-6.5) K/uL Lymph # (Auto) 1.41 (1.2-3.4) K/uL [place] # (Auto) 0.53 (0.11-0.59) K/uL Eos # (Auto) 0.12 (0-0.5) K/uL Baso # (Auto) 0.04 (0-0.2) K/uL Sodium 141 (136-145) mmol/L Potassium 3.9 (3.5-5.1) mmol/L Chloride 108 H (98-107) mmol/L Carbon Dioxide 24 (21-32) mmol/L Anion Gap 9.0 (3-11) BUN 8 D (7-18) mg/dl Creatinine 0.47 L (0.6-1.2) mg/dl Est Cr Clr Drug Dosing 89.9 ml/min Est GFR ( Amer) 108.9 Est GFR (Non-Af Amer) 93.9 BUN/Creatinine Ratio 17.8 (10-20) Glucose 83 (70-99) mg/dl Estimat Average Glucose mg/dl Hemoglobin A1c (4.5-5.6) % Calcium 9.0 (8.5-10.1) mg/dl Total Bilirubin 0.7 (0.2-1) mg/dl Direct Bilirubin 0.2 (0-0.2) mg/dl AST 12 L (15-37) U/L ALT 18 (12-78) U/L Alkaline Phosphatase 52 (45-117) U/L Total Protein 6.7 (6.4-8.2) gm/dl Albumin 3.4 (3.4-5.0) gm/dl Globulin (2.5-4.0) gm/dl Albumin/Globulin Ratio (0.9-2) Lipase 1075 H (73-393) U/L Urine Color Yellow Urine Appearance Turbid H (Clear) Urine pH 8.5 H (4.5-7.5) Ur Specific [place] 1.017 (1.000-1.030) Urine Protein Negative (Negative) Urine Glucose (UA) Negative (Negative) Urine Ketones 4+ H (Negative) Urine Blood Trace H (Negative) Urine Nitrite Negative (Negative) Urine Bilirubin Negative (Negative) Urine Urobilinogen Negative (Negative) Ur Leukocyte Esterase Negative (Negative) Urine WBC (Auto) 1-5 (0-5) /hpf Urine RBC (Auto) 10-30 H (0-4) /hpf U Hyaline Cast (Auto) 1-5 (0-5) /lpf U Epithel Cells (Auto) 10-20 H (0-5) /lpf Urine Bacteria (Auto) Negative (Negative) Blood Pressure Blood Pressure Findings: Elevated blood pressure Blood Pressure Disposition: elevated BP felt to be situational MDM Narrative The patient was evaluated. IV access was obtained. The patient was given 1 L normal saline wide open. CBC and differential, renal profile, LFTs and lipase levels were ordered. Urinalysis was ordered. Patient was given Dilaudid 1 mg IV and grams IV push. Patient has a history of recurrent pancreatitis and this feels the same therefore no additional diagnostic imaging was performed. Labs are reviewed. The patient's white count was normal. The patient's BUN and creatinine were normal. The patient's lipase was 18,269. Urinalysis revealed trace of blood but no leukocytes, bacteria or nitrates. The patient was independently evaluated by Dr. lemos who agreed with treatment plan. The patient stated she did not want to be admitted. I contacted [facility], Dr. Serrano who stated that the patient needs to be admitted and if she does not agree she will have to sign out AMA. I discussed this with the patient and she agreed to be [facility] I had the corrections caseworker obtain the notes from [facility] for Dr. Toth. Impression & Plan Acute pancreatitis Discharge Plan Visit Data *Final* Discharge Date/Time: 08/26/18 15:38 Chief Complaint: Abdominal Pain Stated Complaint: ABD PAIN VOMITING ED Provider: Martin Lemos ED Midlevel Provider: Cecelia Baldwin Discharge Problem: Acute pancreatitis Patient Disposition: Admitted As Inpatient Condition: Good Discharge Instructions Interventions: ED Discharge Assessment Last Done: 08/26/18 15:38
[2018-08-26 11:58] LABS: Basophils # (auto) 0.04 K/uL (0-0.2); Basophils % (auto) 0.4 %; Eosinophils # (auto) 0.01 K/uL (0-0.5); Eosinophils % (auto) 0.1 %; Hematocrit (blood only) 45.1 % (37-47); Hemoglobin 14.9 g/dL (12.0-16.0); Immature Granulocytes # (auto) 0.02 K/uL (0.00-0.02); Immature Granulocytes % (auto) 0.2 %; Lymphocytes # (auto) 0.62 K/uL (1.2-3.4); Lymphocytes % (auto) 6.7 %; Mean Platelet Volume 9.7 fL (7.4-10.4); Monocytes # (auto) 0.37 K/uL (0.11-0.59); Neutrophils # (auto) 8.18 K/uL (1.4-6.5); Neutrophils % (auto) 88.6 %; Platelet Count 330 K/uL (130-400); RDW Coefficient of Variation 12.7 % (11.5-14.5); RDW Standard Deviation 44.9 fL (36.4-46.3); Red Blood Count 4.65 M/uL (4.2-5.4); White Blood Count 9.24 K/uL (4.8-10.8)
[2018-08-26 12:04] LABS: Appearance Urine Turbid (Clear); Bacteria Urine Automated Negative (Negative); Bilirubin Urine Negative (Negative); Color Urine Yellow; Glucose Urine UA Negative (Negative); Leukocyte Esterase Urine Negative (Negative); Nitrite Urine Negative (Negative); Specific Gravity Urine 1.017 (1.000-1.030); Urobilinogen Urine Negative (Negative); pH Urine 8.5 (4.5-7.5)
[2018-08-26 12:12] LABS: Ketones Urine 4+ (Negative); Protein Urine Negative (Negative)
[2018-08-26 12:15] LABS: Albumin Level 3.7 gm/dl (3.4-5.0); BUN Creatinine Ratio 24.1 (10-20); Calcium 9.3 mg/dl (8.5-10.1); Creatinine Clr Calc Pharmacy 67.1 ml/min; Est GFR (African American) 98.9; Est GFR (Non-African American) 85.3; Potassium 3.5 mmol/L (3.5-5.1)
[2018-08-26 12:18] LABS: Albumin Globulin Ratio 0.9 (0.9-2); Bilirubin,Total 0.6 mg/dl (0.2-1); Total Protein 7.7 gm/dl (6.4-8.2)
--- NOTE | 2018-08-26 13:31 | Discharge Summary ---
Date of Service August 26, 2018 Admission HPI Per Admitting Provider Ms Vidales began having pain in her abdomen, nausa and vomiting starting this morning around 10:00. She has had multiple admissions for idiopatic pancreatitis Discharge Data Allergies Allergy/AdvReac Type Severity Reaction Status Date / Time morphine Allergy Intermediate RASH Verified 08/26/18 11:33 Iodinated Contrast- Oral and Allergy Unknown RASH Verified 08/26/18 11:33 IV Dye latex Allergy Unknown HIVES Verified 08/26/18 11:33 Consultations 08/26/18 12:58 ED Decision to Admit Stat Discharge Plan Visit Data Chief Complaint: Abdominal Pain Stated Complaint: ABD PAIN VOMITING ED Provider: Martin Espitia ED Midlevel Provider: Cecelia Baldwin Patient Disposition: Being Evaluated by Hospitalist Condition: Good Forms Stand Alone Forms: Call Back Authorization, [facility] Prescriptions Prescriptions: No Action melatonin 3 mg Tablet 3 mg PO HS PRN (Reason: Sleep) RF: 0 aspirin 81 mg Tablet,Delayed Release (Dr/Ec) 81 mg PO DAILY RF: 0 levothyroxine [Synthroid] 88 mcg Tablet 88 mcg PO DAILY RF: 0 epinephrine [EpiPen] 0.3 mg/0.3 mL Auto-Injector 0.3 mg IM UD PRN (Reason: Allergic Reaction) RF: 0 cyclosporine [Restasis] 0.05 % Dropperette 1 drp OPHTHALMIC (EYE) Q12H RF: 0 [id number]-owvnllgd-ofdncau [Creon] 12,000-38,000 -60,000 unit Capsule,Delayed Release(Dr/Ec) 3 cap PO TID RF: 0 Referrals Referrals: Pro,Rob Cline MD [Primary Care Provider] -
--- NOTE | 2018-08-26 13:36 | History & Physical Report ---
Date of Service August 26, 2018 Assessment & Plan (1) Recurrent pancreatitis: - idiopathic relapsing pancreatitis - lipase level of 18,269, abdominal pain and n/v - symptoms have improved significantly since arriving to ED - recurrent admissions secondary to pancreatitis on Aug 2016, January 2017, October 2017 and February 2018 - no cause found as yet. Glucose, calcium, triglycerides WNL. No hx of gallstones. No alcohol usage. - on MRCP done in 01/2017, pt has 7mm IPMN - repeat MRCP done in July here generally unremarkable/unchanged. 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 She has had multiple admissions for idiopatic relapsing pancreatitis recently. Otherwise she has only hypothyroidism and rosacea in her medical history. She stopped taking most of her supplements per Dr. Lindsey's suggestion. She has been seeing [facility] for continuing workup of this problem Family history includes emphysema and heart disease She is a non drinker, non smoker. 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 No suspicious exposures. Allergies Allergy/AdvReac Type Severity Reaction Status Date / Time morphine Allergy Intermediate RASH Verified 08/26/18 11:33 Iodinated Contrast- Oral and Allergy Unknown RASH Verified 08/26/18 11:33 IV Dye latex Allergy Unknown HIVES Verified 08/26/18 11:33 Home Medications Home Medications Medication Instructions Recorded Confirmed Type aspirin 81 mg PO DAILY 07/29/18 08/26/18 History cyclosporine [Restasis] 1 drp OPHTHALMIC (EYE) Q12H 07/29/18 08/26/18 History epinephrine [EpiPen] 0.3 mg IM UD PRN 07/29/18 08/26/18 History levothyroxine [Synthroid] 88 mcg PO DAILY 07/29/18 08/26/18 History [id number]-qetenjiw-[id number] [Creon] 3 cap PO TID 07/29/18 08/26/18 History melatonin 3 mg PO HS PRN 07/29/18 08/26/18 History Past Med/Surg History Medical History Recurrent pancreatitis Lyme disease (Chronic) Hiatal hernia Hypertension Hypothyroidism Surgical History S/P bunionectomy right foot X 2 S/P tonsillectomy and adenoidectomy age 14 years Social History Current Living Situation: Family Feels Safe at Home: Yes Smoking Status: Never smoker Hx Alcohol Use: No Hx Substance Use: No Beliefs That Will Affect Care: None Preferred Language: German Review of Systems All systems reviewed & are unremarkable except as noted in HPI & below Physical Exam 2 Vital Signs (Past 24 Hours): Last Vital Signs Temp 36.8 C 08/26/18 10:58 Pulse 69 08/26/18 10:58 Resp 16 08/26/18 10:58 BP 217/104 H 08/26/18 10:58 Pulse Ox 96 08/26/18 10:58 Physical Exam: General: no distress Eyes: normal inspection, PERLL Respiratory: chest non tender, clear to auscultation, normal breath sounds, no respiratory distress, no accessory muscle use Cardiac: regular rate and rhythm, no rub or gallop, systolic murmur, no edema, no jvd GI/: active bowel sounds, no abd pain or tenderness, soft, non distended Extremities: normal range of motion, normal strength, non tender Neuro:oriented x 3, moves all extremities Psych: alert, normal mood and affect Skin: normal color, dry Results & Data Laboratory Results Abnormal lab results 08/26/18 08/26/18 08/26/18 Range/Units 11:40 11:40 11:45 Neut # (Auto) 8.18 H (1.4-6.5) K/uL Lymph # (Auto) 0.62 L (1.2-3.4) K/uL Anion Gap 12.0 H (3-11) BUN/Creatinine Ratio 24.1 H (10-20) Glucose 157 H (70-99) mg/dl Lipase 60634 H (73-393) U/L Urine Appearance Turbid H (Clear) Urine pH 8.5 H (4.5-7.5) Urine Ketones 4+ H (Negative) Urine Blood Trace H (Negative) Urine RBC (Auto) 10-30 H (0-4) /hpf U Epithel Cells (Auto) 10-20 H (0-5) /lpf Supervising Physician Co-Signing Physician Notes [employer] Physician Supervision Note: I discussed with Sheila Wood [employer] Q[employer] LEAD and agree with findings and plan as documented in the note. Any exceptions or clarifications are listed here: None Patient was seen in the ER she looked comfortable she had resolution of her abdominal pain she is frustrated with a recurrence of her pancreatic inflammation. He states that Dr. lindsey did talk to her about something with 1 of the tubes in her pancreas and that she had an outpatient MRI scan which was suboptimal due to poor IV contrast Vital signs are noted abdomen shows normal bowel sounds soft minorly uncomfortable left upper quadrant cardiac exam is regular lungs are clear Recurrent relapsing pancreatitis, will have supportive care with IV fluids pain control and antiemetics with a GI consultation Documented By: Ziggy Cancino
[2018-08-26] MEDS ORDERED: NON-FORMULARY MEDICATION (Melatonin [Melatonin] 3 MG) PO PRN (16:07)
[2018-08-26] MEDS ORDERED: HYDROmorphone INJ 0.5 MG/0.5 ML SYR IV PRN (16:07)
[2018-08-26] MEDS ORDERED: ONDANSETRON INJ 2 MG/ML 2 ML VIAL IV PRN (16:07)
[2018-08-26] MEDS: LACTATED RINGER'S 1,000 ML IV SCH ×2 (16:21→21:28)
[2018-08-26] MEDS: PANCREAZE (LIPASE 10,500U) CAP PO SCH ×2 (17:44→21:29)
[2018-08-27] MEDS ORDERED: LEVOTHYROXINE SODIUM 88 MCG TABLET PO SCH (06:30)
[2018-08-27 06:52] LABS: Estimated Average Glucose 111 mg/dl
[2018-08-27 08:32] LABS: Basophils # (auto) 0.04 K/uL (0-0.2); Basophils % (auto) 0.6 %; Eosinophils # (auto) 0.12 K/uL (0-0.5); Eosinophils % (auto) 1.9 %; Hematocrit (blood only) 42.5 % (37-47); Immature Granulocytes # (auto) 0.02 K/uL (0.00-0.02); Immature Granulocytes % (auto) 0.3 %; Lymphocytes # (auto) 1.41 K/uL (1.2-3.4); Lymphocytes % (auto) 22.7 %; Mean Corpuscular Hgb Conc 32.9 g/dL (32-36); Mean Corpuscular Volume 98.4 fL (80-100); Mean Platelet Volume 9.1 fL (7.4-10.4); Monocytes # (auto) 0.53 K/uL (0.11-0.59); Monocytes % (auto) 8.5 %; Neutrophils # (auto) 4.09 K/uL (1.4-6.5); Platelet Count 303 K/uL (130-400); RDW Coefficient of Variation 12.8 % (11.5-14.5); Red Blood Count 4.32 M/uL (4.2-5.4); White Blood Count 6.21 K/uL (4.8-10.8)
[2018-08-27] MEDS: PANCREAZE (LIPASE 10,500U) CAP PO SCH ×2 (08:43→14:03)
[2018-08-27 09:11] LABS: Albumin Level 3.4 gm/dl (3.4-5.0); BUN Creatinine Ratio 17.8 (10-20); Bilirubin Direct 0.2 mg/dl (0-0.2); Bilirubin,Total 0.7 mg/dl (0.2-1); Creatinine Clr Calc Pharmacy 89.9 ml/min; Est GFR (African American) 108.9; Est GFR (Non-African American) 93.9; Potassium 3.9 mmol/L (3.5-5.1); Total Protein 6.7 gm/dl (6.4-8.2)
--- NOTE | 2018-08-27 11:21 | Gastrointestinal Consultation ---
Date of Consultation August 27, 2018 Assessment & Plan (1) Acute pancreatitis: 1. IV fluids at 150/hr. 2. Begin po clear liquids. If tolerates well, will advance to a low fat, regular consistency diet. 3. would defer repeat imaging at this time as US, CT, MRCP were completed in July and she has had a recent EUS. 4. If able to tolerate low-fat regular consistency diet, then no GI contraindication to discharge later today. 5. Continue outpatient follow-up with Dr. lindsey. She has an appointment scheduled in a few weeks. Present on Admission?: Yes Supervising Physician Co-Signing Physician Notes I have personally seen and examined the patient with LEYDI Bailey. Her note reflects my exam and findings. I agree with her impression and plan. No obvious cause of pancreatitis. Doing well and tolerating clears. Advance diet as tolerates slowly. Peyman Barkley M.D. History of Present Illness Reason for Consultation: Pancreatitis Requesting Physician: Dr. Ritchie Attending Physician: Yovana Ritchie MD History of Present Illness Ms. Yesy Vidales is a 78-year-old female who presented to the emergency department yesterday for abdominal pain. GI is consulted for acute pancreatitis. This is her fifth episode of acute idiopathic pancreatitis. Prior workup has included CT ultrasound and MRCP in July 2018. Imaging was suggestive of stranding near the pancreatic tail as well as mild narrowing and irregularity of the main pancreatic duct in the distal portion of the body of the pancreas. She has been followed by Dr. Bello Lindsey in GI clinic. OP EUS was without abnormalities, though she does have a large hiatal hernia. Yesterday morning, after breakfast she began with moderately severe upper abdomen pain in a bandlike distribution across the entire abdomen, radiating to the back. She recognized this is a sign of pancreatitis and presented immediately to the [facility] ED. On arrival here, further imaging was deferred. Lipase was 18,000 and this morning is 10,000. LFTs have been normal and she is hemodynamically stable with normal blood pressure, no leukocytosis or fevers, normal hemoglobin hematocrit and electrolytes. She is seen and examined while she is sitting up in bed. She is awake, alert, oriented, and tells us that she has been completely free of pain since soon after her arrival here, when she received one dose of IV narcotics. She tells me that she feels well and would like to go home today. Allergies Allergy/AdvReac Type Severity Reaction Status Date / Time morphine Allergy Intermediate RASH Verified 08/26/18 11:33 Iodinated Contrast- Oral and Allergy Unknown RASH Verified 08/26/18 11:33 IV Dye latex Allergy Unknown HIVES Verified 08/26/18 11:33 Home Medications Home Medications Medication Instructions Recorded Confirmed Type aspirin 81 mg PO DAILY 07/29/18 08/26/18 History cyclosporine [Restasis] 1 drp OPHTHALMIC (EYE) Q12H 07/29/18 08/26/18 History epinephrine [EpiPen] 0.3 mg IM UD PRN 07/29/18 08/26/18 History levothyroxine [Synthroid] 88 mcg PO DAILY 07/29/18 08/26/18 History fvhcjq-mtkplyjf-nhkdgfo [Creon] 3 cap PO TID 07/29/18 08/26/18 History melatonin 3 mg PO HS PRN 07/29/18 08/26/18 History Patient History Medical History Recurrent pancreatitis Lyme disease (Chronic) Hiatal hernia Hypertension Hypothyroidism Surgical History S/P bunionectomy right foot X 2 S/P tonsillectomy and adenoidectomy age 14 years Social History Current Living Situation: Family Other Information That Helps Us Care for You: No Feels Safe at Home: Yes Safety Concerns: Feels Safe At This Time Smoking Status: Never smoker Hx Alcohol Use: No Hx Substance Use: No Beliefs That Will Affect Care: None Communication Ability: Effective Review of Systems Constitutional: no fever, no chills, no sweats, no body aches and no fatigue No icterus Respiratory: no cough, no dyspnea and no wheezing Cardiovascular: no chest pain, no palpitations, no syncope and no edema Gastrointestinal: + abdominal pain; no nausea and no vomiting Genitourinary (Female): no dysuria, no urinary frequency and no hematuria Musculoskeletal: no muscle weakness, no body aches and no problem reported Integumentary: no rash No jaundice Neurologic: no falls, no paralysis, no numbness and no syncope Psychiatric: no depression, no anxiety and no confusion Endocrine: no fatigue, no cold intolerance and no problem reported Physical Exam 2 Vital Signs (Past 24 Hours): Last Vital Signs Temp 36.5 C 08/27/18 07:19 Pulse 16 L 08/27/18 07:19 Resp 18 08/26/18 16:07 BP 144/80 H 08/27/18 07:19 Pulse Ox 94 08/27/18 07:19 Constitutional: well developed, + obese (Mildly) and healthy appearing; not edematous Appears younger than stated age Eyes: PERRL, conjunctivae normal, anicteric sclerae ENMT: external ear and nose normal, oropharynx normal Neck: trachea midline, no thyromegaly Respiratory: normal respiratory effort, lungs clear to auscultation Auscultation: no crackles and no wheezes Cardiovascular: RRR, no murmur, no edema Gastrointestinal (Abdomen): normal bowel sounds, soft, nontender, no hepatosplenomegaly Skin: no rashes, warm and dry No jaundice Neurologic: PERRL, EOMI, accommodation nl, no face palsy, no dysarthria Psychiatric: A+Ox3, euthymic affect Lymphatic: no cervical or axillary lymphadenopathy Results & Data Laboratory Results WBC 6.1, hemoglobin 14, hematocrit 42, platelets 303, sodium 141, potassium 3.9 , chloride 108, BUN 8, creatinine 0.47 Diagnostic Findings US 07/29/18: IMPRESSION: No acute sonographic abnormality is seen in the right upper quadrant. No shadowing gallstones are identified. CT 07/29/18: 1. There is stranding and fluid identified around the distal pancreatic body and tail. The appearance is consistent with acute pancreatitis. 2. No organized peripancreatic fluid collection is identified. 3. Large hiatal hernia. 4. Mild to moderate colonic diverticulosis without CT evidence of acute diverticulitis. 5. Additional findings as above. MRCP 07/29/18: 1. Findings are consistent with acute pancreatitis involving predominantly the pancreatic tail. 2. Unremarkable assessment of the gallbladder, intrahepatic bile ducts, and the common bile duct. No gallstones are seen. 3. The proximal pancreatic duct is normal in appearance. 4. There is focal narrowing and irregularity seen involving the pancreatic duct in the region of the mid to distal pancreatic body, which may represent stricture related to acute/chronic pancreatitis. This is unchanged from the examination. 5. A 7 mm IPMN is again noted in the pancreatic head. 6. Large hiatal hernia. _ (1) Acute pancreatitis Acute pancreatitis complication: unspecified Pancreatitis type: unspecified pancreatitis type Qualified Code(s): K85.90 - Acute pancreatitis without necrosis or infection, unspecified
--- NOTE | 2018-08-27 16:58 | Discharge Summary ---
Date of Service August 27, 2018 Admission HPI Per Admitting Provider Ms Vidales began having pain in her abdomen, nausa and vomiting starting this morning around 10:00. She has had multiple admissions for idiopatic relapsing pancreatitis recently. Otherwise she has only hypothyroidism and rosacea in her medical history. She stopped taking most of her supplements per Dr. Lindsey's suggestion. She has been seeing [facility] for continuing workup of this problem Family history includes emphysema and heart disease She is a non drinker, non smoker. 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 No suspicious exposures. Principal Diagnosis Acute recurrent pancreatitis Discharge Exam Constitutional WD/WN, vitals as above Eyes PERRL, conjunctivae normal, anicteric sclerae ENMT external ear and nose normal, oropharynx normal Neck trachea midline, no thyromegaly Respiratory normal respiratory effort, lungs clear to auscultation Cardiovascular RRR, no murmur, no edema Gastrointestinal (Abdomen) normal bowel sounds, soft, nontender, no hepatosplenomegaly Musculoskeletal Extremities: extremities normal to inspection; no cyanosis and no clubbing Skin no rashes, warm and dry Neurologic moves all extremities and awake; no focal motor deficits Psychiatric A+Ox3, euthymic affect Discharge Data Allergies Allergy/AdvReac Type Severity Reaction Status Date / Time morphine Allergy Intermediate RASH Verified 08/26/18 11:33 Iodinated Contrast- Oral and Allergy Unknown RASH Verified 08/26/18 11:33 IV Dye latex Allergy Unknown HIVES Verified 08/26/18 11:33 Consultations Gastroenterology Procedures Performed None Hospital Course (1) Recurrent pancreatitis: - idiopathic relapsing pancreatitis-no history of alcoholism, cholelithiasis, hypercalcemia, hypertriglyceridemia, or pancreas divisum on imaging previously. Previous MRCP in 07/2018 showed focal narrowing and irregularity of the distal pancreatic duct in the region of the distal body. Autoimmune pancreatitis ruled out with normal IgG panel last admission She is also undergone EUS as an outpatient with GI with no significant abnormalities found. EGD without significant pathology and biopsies. She does have scattered calcified granulomas of the liver and spleen on imaging on CT in 07/2018 but MARIUSZ level negative and calcium levels normal even when calculated for mildly low albumin. - lipase level of 18,269 on admission and now down to 1000 by the next day; abdominal pain and n/v both now completely resolved and patient tolerating low- fat diet on the day of discharge LFTs normal - on MRCP done in 01/2017, pt has 7mm IPMN but likely of no significance in relationship to her pancreatitis Appreciate gastroneurology consultation here-stable for discharge home continue outpatient workup -She can continue the Creon until this bottle/supply is gone and then she can discontinue -Remain on low-fat diet upon discharge -She has since stopped all of her multiple herbal supplements as advised by GI last month (2) Hypothyroidism: Continue synthroid 88 mcg (3) Microscopic hematuria: Patient with multiple urinalyses in the past with her scopic hematuria, somewhere in association with urinary tract infections while others were not. This time, she does have trace blood and 10-30 RBCs per high-powered field on her urinalysis. She has no gross hematuria. Recommend she follow-up with her PCP and consider CT renal protocol and referral to urology for cystoscopy in the future (4) DVT prophylaxis: SCDS were provided Disposition-stable for discharge to home Total Time Total Time Spent Total Time Spent (In Minutes): Greater than 30 minutes Total Time Includes: Examination of the Patient, Discharge Planning, Medication Reconciliation and Communication With Other Providers (Gastroenterology, Dr. Barkley) Discharge Plan Discharge Items Patient Disposition: Home - Self-Care Reason For Visit: PANCREATITIS Discharge Diagnosis: Acute pancreatitis Condition: Good Discharge Goals: Diagnostic testing, Improve disease control, Learn about illness and Therapeutic intervention Activity: Resume your previous activity Lifting: Gradually increase as tolerated Bathing: No limitations Exercise/Sports: Gradually increase as tolerated Driving/Machine Use: Resume 1 day after discharge Non-emergency contact: Primary Care Provider and Document Restorer Call non-emergency contact if: you have any medication questions, your symptoms worsen, your pain is not controlled, your pain is worsening, your pain is unusual for you, your pain is concerning for you, you have a fever and your temperature is above 101 Follow-up/Referrals: Rob Mayers MD [Primary Care Provider] - 08/31/18 9:30 am (Please, follow up at Dr. Mayers's office with his assistant professor of life sciences, Elaina Hinton PA-C, on MondayAugust 31 at 9:30 am. *If you need to change this appointment, call the office at [phone].) Diet: Low Fat Addtl Provider Instructions: You were admitted with another bout of acute pancreatitis. This resolved very quickly with IV fluids and pain control. It is okay for you to be discharged to home and he should follow a low-fat diet. It is still unclear why you have recurrent pancreatitis, but it is important for you to follow-up with Dr. Lindsey of gastroenterology to continue your workup for this. You did have some blood in your urine and this has been an issue for you in the past. He do not have an infection in the urine. Please follow-up with your primary care physician to discuss a further workup for this and a possible referral to urology. Please follow-up with your primary care physician as scheduled for you within 1- 2 weeks. Prescriptions: Continue melatonin 3 mg Tablet 3 mg PO HS PRN (Reason: Sleep) RF: 0 aspirin 81 mg Tablet,Delayed Release (Dr/Ec) 81 mg PO DAILY RF: 0 levothyroxine [Synthroid] 88 mcg Tablet 88 mcg PO DAILY RF: 0 epinephrine [EpiPen] 0.3 mg/0.3 mL Auto-Injector 0.3 mg IM UD PRN (Reason: Allergic Reaction) RF: 0 cyclosporine [Restasis] 0.05 % Dropperette 1 drp OPHTHALMIC (EYE) Q12H RF: 0 iqtmvu-vewrgbqt-fjnrbck [Creon] 12,000-38,000 -60,000 unit Capsule,Delayed Release(Dr/Ec) 3 cap PO TID RF: 0 Stand-Alone Forms: Call Back Authorization, [facility] Discharge Orders: Discharge Order (Routine); Ordered 08/27/18 Ordered By: Yovana Ritchie Admission Data Admit Date/Time: 08/26/18 16:07 Attending Provider: Yoavna Ritchie Admit Provider: Ziggy Cancino Primary Care Provider: Rob Mayers Other Providers: Ziggy Cancino ; Bello Lindsey Service: Medical Other Pending Studies at Discharge: No
--- NOTE | 2018-08-28 15:26 | Emergency Department Note ---
ED Visit Note ED visit: 08/26/2017 I reviewed the patient's past medical history, medications, and visit nursing notes. I discussed the case with the physician orthopaedic physician assistant, examined the patient, and agree with the findings and plan as documented in PAC Shear's note. .
== END 2018-08-27 17:23 | disposition home or self-care (01) ==
LOC: ED 10:54 → 2N 10:54 → SUATTDRO 16:07

== ENCOUNTER 2018-10-03 16:24 | Inpatient (IN) ==
[2018-10-03] MEDS ORDERED: ONDANSETRON INJ 2 MG/ML 2 ML VIAL IV STA ×2 (16:41→19:48)
[2018-10-03] MEDS ORDERED: HYDROmorphone INJ 0.5 MG/0.5 ML SYR IV STA (16:41)
[2018-10-03] MEDS ORDERED: PANTOprazole 80 MG in DEXTROSE 5% 100 ML IV ONE (16:43)
[2018-10-03] MEDS ORDERED: PANTOPRAZOLE BOLUS/DRIP 1 EA IV STA (16:43)
[2018-10-03] MEDS ORDERED: SODIUM CHLORIDE 0.9% 1000ML 1,000 ML IV SCH (16:45)
[2018-10-03 17:04] LABS: Basophils # (auto) 0.04 K/uL (0-0.2); Basophils % (auto) 0.4 %; Eosinophils # (auto) 0.03 K/uL (0-0.5); Eosinophils % (auto) 0.3 %; Hematocrit (blood only) 47.7 % (37-47); Hemoglobin 15.8 g/dL (12.0-16.0); Immature Granulocytes # (auto) 0.02 K/uL (0.00-0.02); Immature Granulocytes % (auto) 0.2 %; Lymphocytes # (auto) 1.23 K/uL (1.2-3.4); Lymphocytes % (auto) 11.7 %; Mean Corpuscular Hgb Conc 33.1 g/dL (32-36); Mean Corpuscular Volume 96.8 fL (80-100); Mean Platelet Volume 9.4 fL (7.4-10.4); Monocytes # (auto) 0.49 K/uL (0.11-0.59); Monocytes % (auto) 4.7 %; Neutrophils # (auto) 8.66 K/uL (1.4-6.5); Neutrophils % (auto) 82.7 %; Platelet Count 335 K/uL (130-400); RDW Coefficient of Variation 13.2 % (11.5-14.5); RDW Standard Deviation 46.8 fL (36.4-46.3); Red Blood Count 4.93 M/uL (4.2-5.4); White Blood Count 10.47 K/uL (4.8-10.8)
--- NOTE | 2018-10-03 17:06 | XRay Report ---
XR chest 1V portable CLINICAL HISTORY: Hematemesis COMPARISON STUDY: 09/29/2017 FINDINGS: Is a calcified left lower lobe granuloma. The heart is mildly enlarged. There is a retrocar diac opacity consistent with a moderate to large hiatal hernia. There is no failure. There is no foca l pulmonary consolidation. There are no pleural effusions.[ IMPRESSION: Large hiatal hernia. No acute findings. Electronically signed by: Jun Francis M.D. 10/03/2018 5:04 PM
[2018-10-03 17:22] LABS: Alanine Aminotransferase 27 U/L (12-78); Aspartate Aminotransferase 19 U/L (15-37); BUN Creatinine Ratio 26.7 (10-20); Blood Urea Nitrogen 16 mg/dl (7-18); Calcium 9.2 mg/dl (8.5-10.1); Carbon Dioxide 29 mmol/L (21-32); Chloride 104 mmol/L (98-107); Est GFR (African American) 101.6; Est GFR (Non-African American) 87.7; Glucose 133 mg/dl (70-99); Potassium 3.6 mmol/L (3.5-5.1); Sodium 139 mmol/L (136-145)
[2018-10-03 17:25] LABS: Albumin Globulin Ratio 1.1 (0.9-2); Alkaline Phosphatase 68 U/L (45-117); Bilirubin,Total 0.6 mg/dl (0.2-1); Globulin 3.7 gm/dl (2.5-4.0); Total Protein 7.7 gm/dl (6.4-8.2)
--- NOTE | 2018-10-03 17:28 | CT Scan Report ---
CT SCAN OF THE ABDOMEN AND PELVIS WITHOUT CONTRAST CLINICAL HISTORY: Diffuse abdominal pain COMPARISON STUDY: 07/29/2018 TECHNIQUE: CT scan of the abdomen and pelvis was performed from the lung bases to the proximal femurs . Images are reviewed in the axial, sagittal, and coronal planes. IV contrast was not administered fo r this examination. A dose lowering technique was utilized adhering to the principles of ALARA. CT DOSE: 489.65 mGy.cm FINDINGS: Lower chest: There is a large hiatal hernia. There is a calcified left lower lobe granuloma. There ar e no pleural effusions. Liver: The unenhanced liver is normal in size, contour, and attenuation. There is no intrahepatic xin iary ductal dilatation. Gallbladder: Unremarkable. Spleen: Normal in size and attenuation. Pancreas: There is infiltration of the peripancreatic fat, most pronounced at the level of the pancre atic tail. The findings are consistent with pancreatitis. No pancreatic ductal dilatation as visualiz ed on this noncontrast study. Adrenal glands: Unremarkable. Kidneys: No renal, ureteral, or bladder calculi are visualized. Bilateral parapelvic cysts are suspec ron. Bowel: There are no transition zones indicate bowel obstruction. There is colonic diverticulosis. The re is no evidence of acute diverticulitis. The descending colon abuts the inflammatory pancreatic nataliia l process. The appendix appears normal. The stomach is distended and fluid-filled. Peritoneum: There is no intraperitoneal free air or abdominal ascites. There is a fat-containing umbi lical hernia. Vasculature: The abdominal aorta is normal in course and caliber. Adenopathy: None. Pelvic viscera: There are calcified uterine fibroids present. No pathologic adnexal masses are visual ized. Skeletal structures: No destructive osseous lesions are seen. IMPRESSION: 1. Fluid and fat infiltration surrounding the distal pancreatic body and tail consistent with acute p ancreatitis 2. Large hiatal hernia. Mildly distended and fluid-filled stomach and hiatal hernia. 3. No evidence of bowel obstruction. No evidence of free air 4. Diverticulosis. No evidence of acute diverticulitis 5. Normal appendix Electronically signed by: Jun Francis M.D. 10/03/2018 5:26 PM
[2018-10-03] MEDS: PANTOprazole 40 MG in DEXTROSE 5% 100 ML IV SCH ×2 (17:32→23:13)
[2018-10-03] MEDS ORDERED: HYDROmorphone INJ 1 MG/ML SYRINGE IV STA (17:43)
--- NOTE | 2018-10-03 18:04 | History & Physical Report ---
Date of Service October 03, 2018 Assessment & Plan (1) Recurrent pancreatitis: h/o idiopathic pancreatitis, this is her 5th bout of pancreatitis most recently had a bout in July and then August no h/o alcohol use, work up has included MRCP, EUS without clear etiology follows with Dr. Lindsey as outpatient will make NPO, NSS at 150cc/hr, repeat CMP, CBC and lipase in the morning consult Robyn ARREAGA Dilaudid 1mg IV q2 PRN, in a lot of pain at the time of admission (2) Hypothyroidism: hold on Synthroid while NPO (3) Hypertension: BP markedly elevated, due to pain control pain Hydralazine PRN for BP > 180/110 (4) DVT prophylaxis: heparin sc History of Present Illness Chief Complaint: I have severe belly pain Primary Care Provider: Rob Mayers MD 78 yo female with history of recurrent idiopathic pancreatitis presents to the ED c/o severe, sharp epigastric pain that started at 2pm today. The patient felt well this morning, ate breakfast and lunch without any pain or nausea. She moved her bowels twice today, normal caliber. At 2pm she felt sharp, intense pain and it was associated with intense nausea. The pain radiated to her back. Nothing she did made the pain better. Her appetite was gone. She felt the same as when she had her previous pancreatitis attacks. She came to the ED. Her lipase was 16k and CT abdomen/pelvis showed acute pancreatitis, no necrosis. She was started on IV fluids and given Dilaudid 1mg IV, did not help long and required an additional dose of 1mg IV. Reviewing previous records, she follows with Dr. Lindsey with Robyn ARREAGA. She was worked up for pancreatitis with MRCP and endoscopic US but no etiology for the attacks could be determined. She does not drink. No gall stones have every been seen. She said that there was some brief discussion about taking out gall bladder but that plan was placed on hold. Her last admission lasted less than 48 hours, she felt better with IV fluids and pain control and went home. She was supposed to follow up with Dr. Lindsey but that appointment is a few weeks away. Allergies Allergy/AdvReac Type Severity Reaction Status Date / Time morphine Allergy Intermediate RASH Verified 10/03/18 17:24 Iodinated Contrast- Oral and Allergy Unknown RASH Verified 10/03/18 17:24 IV Dye latex Allergy Unknown HIVES Verified 10/03/18 17:24 Home Medications Home Medications Medication Instructions Recorded Confirmed Type cyclosporine [Restasis] 1 drp OPHTHALMIC (EYE) Q12H 07/29/18 10/03/18 History epinephrine [EpiPen] 0.3 mg IM UD PRN 07/29/18 10/03/18 History levothyroxine [Synthroid] 88 mcg PO DAILY 07/29/18 10/03/18 History [id number] [Creon] 3 cap PO TID 07/29/18 10/03/18 History melatonin 3 mg PO HS PRN 07/29/18 10/03/18 History Past Med/Surg History Medical History Hypertension Microscopic hematuria Hypothyroidism Recurrent pancreatitis Hiatal hernia (Acute) Lyme disease Surgical History S/P bunionectomy right foot X 2 S/P tonsillectomy and adenoidectomy age 14 years Family History Other No significant family history Social History Current Living Situation: Family Feels Safe at Home: Yes Smoking Status: Never smoker Hx Alcohol Use: No Hx Substance Use: No Beliefs That Will Affect Care: None Preferred Language: Estonian Review of Systems All systems reviewed & are unremarkable except as noted in HPI & below Constitutional: + malaise and + weakness; no fever, no chills and no sweats Gastrointestinal: + abdominal pain (severe, epigastric) and + nausea; no vomiting, no constipation and no diarrhea/loose stools Physical Exam 2 Vital Signs (Past 24 Hours): Last Vital Signs Temp 36.3 C L 10/03/18 16:30 Pulse 84 10/03/18 16:30 Resp 22 10/03/18 16:30 BP 204/91 H 10/03/18 16:30 Pulse Ox 94 10/03/18 16:30 Constitutional: WD/WN, vitals as above + acute distress (mild distress due to pain) and + well hydrated Eyes: PERRL, conjunctivae normal, anicteric sclerae ENMT: external ear and nose normal, oropharynx normal Neck: trachea midline, no thyromegaly Respiratory: normal respiratory effort, lungs clear to auscultation Cardiovascular: RRR, no murmur, no edema Gastrointestinal (Abdomen): Inspection/Auscultation: abdomen normal to inspection and normal bowel sounds; abdomen not distended Percussion/ Palpation: + abdomen tender (epigastric, very tender), + guarding and abdomen soft Musculoskeletal: no cyanosis or clubbing, extremities motor strength 5/5 Skin: no rashes, warm and dry Neurologic: patellar DTR's 2+ bilat, sensation intact and PERRL, EOMI, accommodation nl, no face palsy, no dysarthria Psychiatric: A+Ox3, euthymic affect Lymphatic: no cervical or axillary lymphadenopathy Results & Data Laboratory Results Laboratory Results - last 24 hr 10/03/18 10/03/18 10/03/18 16:50 16:50 16:50 WBC 10.47 RBC 4.93 Hgb 15.8 Hct 47.7 H MCV 96.8 MCH 32.0 MCHC 33.1 RDW Std Deviation 46.8 H RDW Coeff of Estrellita 13.2 Plt Count 335 MPV 9.4 Immature Gran % (Auto) 0.2 Neut % (Auto) 82.7 Lymph % (Auto) 11.7 Terrell % (Auto) 4.7 Eos % (Auto) 0.3 Baso % (Auto) 0.4 Immature Gran # (Auto) 0.02 Neut # (Auto) 8.66 H Lymph # (Auto) 1.23 Terrell # (Auto) 0.49 Eos # (Auto) 0.03 Baso # (Auto) 0.04 Sodium 139 Potassium 3.6 Chloride 104 Carbon Dioxide 29 Anion Gap 6.0 BUN 16 Creatinine 0.58 L Est Cr Clr Drug Dosing Not Reportable Est GFR ( Amer) 101.6 Est GFR (Non-Af Amer) 87.7 BUN/Creatinine Ratio 26.7 H Glucose 133 H Calcium 9.2 Total Bilirubin 0.6 AST 19 ALT 27 Alkaline Phosphatase 68 Total Protein 7.7 Albumin 4.0 Globulin 3.7 Albumin/Globulin Ratio 1.1 Lipase 08502 H Blood Type Cancelled Antibody Screen Cancelled Diagnostic Findings CT ABDOMEN/PELVIS IMPRESSION: 1. Fluid and fat infiltration surrounding the distal pancreatic body and tail consistent with acute pancreatitis 2. Large hiatal hernia. Mildly distended and fluid-filled stomach and hiatal hernia. 3. No evidence of bowel obstruction. No evidence of free air 4. Diverticulosis. No evidence of acute diverticulitis 5. Normal appendix Code Status & VTE Plan Code Status full code VTE Prophylaxis Plan VTE Prophylaxis will be ordered: Yes
[2018-10-03] MEDS ORDERED: HydrALAZINE HCL 20 MG/ML VIAL ONE (18:56)
[2018-10-03] MEDS ORDERED: ONDANSETRON INJ 2 MG/ML 2 ML VIAL IV PRN (20:50)
[2018-10-03] MEDS ORDERED: HydrALAZINE HCL 20 MG/ML VIAL IV PRN (20:50)
[2018-10-03] MEDS ORDERED: NON-FORMULARY MEDICATION (Melatonin [Melatonin] 3 MG) PO PRN (20:50)
[2018-10-03] MEDS: HYDROmorphone INJ 1 MG/ML SYRINGE IV PRN ×2 (21:04→23:26)
[2018-10-03] MEDS: NSS + 20MEQ KCL 20 MEQ/1,000 ML BAG IV SCH (22:06)
[2018-10-03] MEDS: HEPARIN SOD 5,000 UNIT/0.5 ML VIAL SQ SCH (22:06)
[2018-10-03] MEDS ORDERED: KETOROLAC TROMETHAMINE 15 MG/ML VIAL IV PRN (22:29)
--- NOTE | 2018-10-03 22:52 | Emergency Department Note ---
Entered by Spring Herndon acting as a scribe for History of Present Illness General Chief complaint: Abdominal Pain Stated complaint: ABDOMINAL PAIN- HX PANCREATITIS Source: patient Mode of arrival: ambulatory Limitations: no limitations History of Present Illness Provider complaint: abdominal pain Onset (ago): hour(s) (2.5) Location: abdomen Pain Consistency: + other (waxing and waning ) Maximum Pain Intensity: 10 Current Pain Intensity: 10 Quality: + other (abdominal pain) Associated symptoms: + denies other symptoms (dysuria, melena), + nausea/ vomiting and + other (hematemesis) The patient is a 78 year old female who presents to the Emergency Room with complaints of a waxing and waning abdominal pain that began 2.5 hours ago. The patient reports that she had just finished eating baked mac and cheese for lunch when the pain began. She states that she has been having episodes of hematemesis as well and that she has a history of pancreatitis. The patient denies having a cholecystectomy or any other abdominal surgeries performed in the past. She also denies any alcohol use as well as any recent new medications. She reports that she has had 6 similar episodes in the past but that her current one has been the worst. She denies any episodes of dysuria or melena. The patient also denies taking any blood thinners. She states that her last BM was today. Home Medications Home Medications Medication Instructions Recorded Confirmed Type cyclosporine [Restasis] 1 drp OPHTHALMIC (EYE) Q12H 07/29/18 10/03/18 History epinephrine [EpiPen] 0.3 mg IM UD PRN 07/29/18 10/03/18 History levothyroxine [Synthroid] 88 mcg PO DAILY 07/29/18 10/03/18 History zrwuep-rbkfjjcf-yulsvqc [Creon] 3 cap PO TID 07/29/18 10/03/18 History melatonin 3 mg PO HS PRN 07/29/18 10/03/18 History Allergies Allergy/AdvReac Type Severity Reaction Status Date / Time morphine Allergy Intermediate RASH Verified 10/03/18 17:24 Iodinated Contrast- Oral and Allergy Unknown RASH Verified 10/03/18 17:24 IV Dye latex Allergy Unknown HIVES Verified 10/03/18 17:24 Past Med/Surg History Medical History Hypertension Microscopic hematuria Hypothyroidism Recurrent pancreatitis Hiatal hernia (Acute) Lyme disease Surgical History S/P bunionectomy right foot X 2 S/P tonsillectomy and adenoidectomy age 14 years Family History Other No significant family history Social History Current Living Situation: Family Feels Safe at Home: Yes Smoking Status: Never smoker Hx Alcohol Use: No Hx Substance Use: No Beliefs That Will Affect Care: None Preferred Language: Urdu Review of Systems See HPI for pertinent positives & negatives. and A total of 10 systems reviewed and were otherwise negative Physical Exam Vital Signs Vital Signs - 24 hr 10/03/18 16:30 10/03/18 17:00 10/03/18 17:03 Temperature 36.3 C L Temperature Source Oral Sepsis Recent Fever Within 48 Hours No Sepsis New/Unexplained Change in Mental Status No Sepsis Action Taken by Nursing No Action Required Pulse Rate 84 80 79 Pulse Rate [Finger] Pulse Rate from SpO2 Sensor 80 79 Pulse Rhythm Regular Pulse Strength Normal Respiratory Rate 22 16 11 L Respiratory Effort / Characteristics Non-Labored Spontaneous Respiratory Depth Normal Respiratory Pattern Regular Blood Pressure 204/91 H 179/107 H Blood Pressure [Right Arm] Blood Pressure Mean 128 131 Blood Pressure Mean [Right Arm] Blood Pressure Position Sitting Pulse Oximetry 94 90 Oxygen Delivery Method Room Air Oxygen Flow Rate 10/03/18 17:22 10/03/18 17:30 10/03/18 17:31 Temperature Temperature Source Sepsis Recent Fever Within 48 Hours Sepsis New/Unexplained Change in Mental Status Sepsis Action Taken by Nursing Pulse Rate 71 75 Pulse Rate [Finger] Pulse Rate from SpO2 Sensor 77 69 73 Pulse Rhythm Pulse Strength Respiratory Rate 16 17 Respiratory Effort / Characteristics Respiratory Depth Respiratory Pattern Blood Pressure 212/100 H Blood Pressure [Right Arm] Blood Pressure Mean 137 Blood Pressure Mean [Right Arm] Blood Pressure Position Pulse Oximetry 91 95 93 Oxygen Delivery Method Oxygen Flow Rate 10/03/18 17:40 10/03/18 17:50 10/03/18 18:00 Temperature Temperature Source Sepsis Recent Fever Within 48 Hours Sepsis New/Unexplained Change in Mental Status Sepsis Action Taken by Nursing Pulse Rate 70 62 71 Pulse Rate [Finger] Pulse Rate from SpO2 Sensor 71 65 72 Pulse Rhythm Pulse Strength Respiratory Rate 15 13 14 Respiratory Effort / Characteristics Respiratory Depth Respiratory Pattern Blood Pressure 215/99 H Blood Pressure [Right Arm] Blood Pressure Mean 137 Blood Pressure Mean [Right Arm] Blood Pressure Position Pulse Oximetry 96 97 96 Oxygen Delivery Method Oxygen Flow Rate 10/03/18 18:10 10/03/18 18:20 10/03/18 18:30 Temperature Temperature Source Sepsis Recent Fever Within 48 Hours Sepsis New/Unexplained Change in Mental Status Sepsis Action Taken by Nursing Pulse Rate 65 83 73 Pulse Rate [Finger] Pulse Rate from SpO2 Sensor 67 81 73 Pulse Rhythm Pulse Strength Respiratory Rate 20 18 15 Respiratory Effort / Characteristics Respiratory Depth Respiratory Pattern Blood Pressure 193/102 H Blood Pressure [Right Arm] Blood Pressure Mean 132 Blood Pressure Mean [Right Arm] Blood Pressure Position Pulse Oximetry 93 89 L 91 Oxygen Delivery Method Oxygen Flow Rate 10/03/18 18:37 10/03/18 18:40 10/03/18 18:51 Temperature Temperature Source Sepsis Recent Fever Within 48 Hours Sepsis New/Unexplained Change in Mental Status Sepsis Action Taken by Nursing Pulse Rate 72 Pulse Rate [Finger] 75 Pulse Rate from SpO2 Sensor 72 Pulse Rhythm Pulse Strength Respiratory Rate 15 20 Respiratory Effort / Characteristics Respiratory Depth Respiratory Pattern Blood Pressure Blood Pressure [Right Arm] 193/102 H Blood Pressure Mean Blood Pressure Mean [Right Arm] 132 Blood Pressure Position Pulse Oximetry 96 99 99 Oxygen Delivery Method Nasal Cannula Nasal Cannula Oxygen Flow Rate 2 2 10/03/18 19:20 10/03/18 20:08 Temperature Temperature Source Sepsis Recent Fever Within 48 Hours Sepsis New/Unexplained Change in Mental Status Sepsis Action Taken by Nursing Pulse Rate Pulse Rate [Finger] 85 Pulse Rate from SpO2 Sensor Pulse Rhythm Pulse Strength Respiratory Rate 22 Respiratory Effort / Characteristics Respiratory Depth Respiratory Pattern Blood Pressure Blood Pressure [Right Arm] 174/94 H Blood Pressure Mean Blood Pressure Mean [Right Arm] 120 Blood Pressure Position Pulse Oximetry 96 Oxygen Delivery Method Room Air Room Air Oxygen Flow Rate GENERAL: Sitting up in bed, disheveled, moderate distress, holding abdomen. EYE EXAM: normal conjunctiva. OROPHARYNX: no exudate, no erythema, lips, buccal mucosa, and tongue normal and mucous membranes are moist NECK: supple, no nuchal rigidity, no adenopathy, non-tender LUNGS: Clear to auscultation. Normal chest wall mechanics HEART: no murmurs, S1 normal and S2 normal ABDOMEN: abdomen soft, tender to palpation from mid abdomen to right upper quadrant, normo-active bowel, sounds, no masses, no rebound or guarding. BACK: Back is symmetrical on inspection and there is no deformity, no midline tenderness, no CVA tenderness. SKIN: no rashes and no bruising UPPER EXTREMITIES: upper extremities are grossly normal. LOWER EXTREMITIES: No pitting edema. NEURO EXAM: Normal sensorium, cranial nerves II-XII grossly intact, normal speech, no gross weakness of arms, no gross weakness of legs. Course ED COURSE: Vital signs were reviewed and the patient is hypertensive. The patients medical record was reviewed The above diagnostic studies were performed and reviewed. ED treatments and interventions as stated above. 1637: The patient was evaluated in room B8. A complete history and physical examination was performed. 1745: Upon reevaluation, the patient appeared to have improvement of her symptoms.. I discussed my findings with the patient and she understands and agrees with the treatment plan. Based on the patients age, coexisting illnesses, exam and lab findings the decision to treat as an inpatient was made. The patient remained stable while under my care. The patient will be evaluated for further management. Administered Medications Heparin Sodium (Porcine) (Heparin Sodium (Porcine)) 5,000 units SQ Q8 [facility] Stop: 11/02/18 21:59 Last Admin: 10/03/18 22:06 Dose: 5,000 units Hydromorphone HCl (Dilaudid) 1 mg IV Q2H PRN PRN Reason: Pain Stop: 10/17/18 20:49 Last Admin: 10/03/18 21:04 Dose: 1 mg Pantoprazole Sodium 40 mg/ (Dextrose) 100 mls @ 20 mls/hr IV Q5H [facility] Stop: 11/02/18 16:44 Last Admin: 10/03/18 17:32 Dose: 20 mls/hr Potassium Chloride/Sodium Chloride (Normal Saline W/20 Meq Kcl) 20 meq in 1, 000 mls @ 150 mls/hr IV .Q6H40M [facility] Stop: 11/02/18 20:49 Last Admin: 10/03/18 22:06 Dose: 150 mls/hr Discontinued Medications Hydralazine HCl (Hydralazine Hcl) Confirm Administered Dose 20 mg .ROUTE .STK- MED ONE Stop: 10/03/18 18:57 Last Increment: 10/03/18 18:57 Dose: 10 mg Hydromorphone HCl (Dilaudid) 1 mg IV NOW STA Stop: 10/03/18 16:42 Last Admin: 10/03/18 16:50 Dose: 1 mg Hydromorphone HCl (Dilaudid) 1 mg IV NOW STA Stop: 10/03/18 17:44 Last Admin: 10/03/18 18:01 Dose: 1 mg Sodium Chloride (Nss 1000ml) 1,000 mls @ 999 mls/hr IV .Q1H1M [facility] Stop: 10/03/18 17:45 Last Infusion: 10/03/18 18:46 Dose: 0 mls/hr Admin: 10/03/18 16:53 Dose: 999 mls/hr Pantoprazole Sodium (Protonix Bolus/Drip) 0 mls @ 1 mls/hr IV ONE STA Stop: 10/03/18 16:44 Last Admin: 10/03/18 17:34 Dose: Not Given Pantoprazole Sodium 80 mg/ (Dextrose) 120 mls @ 400 mls/hr IV NOW ONE Stop: 10/03/18 17:00 Last Infusion: 10/03/18 17:31 Dose: 0 mls/hr Admin: 10/03/18 17:06 Dose: 400 mls/hr Ondansetron HCl (Zofran) 4 mg IV NOW STA Stop: 10/03/18 16:42 Last Admin: 10/03/18 16:53 Dose: 4 mg Ondansetron HCl (Zofran) 4 mg IV NOW STA Stop: 10/03/18 19:49 Last Admin: 10/03/18 19:53 Dose: 4 mg Medical Decision Making Differential Diagnosis Differential diagnosis includes: gastritis, peptic ulcer disease, GERD, gallbladder disease, pancreatitis, small bowel obstruction, acute coronary syndrome, pericarditis, ischemic bowel, irritable bowel disease, irritable bowel syndrome, appendicitis, diverticulitis, malignancy, hernia, UTI, torsion, perforation, trauma, and kidney stones. Medical Records Attestation: I reviewed the patient's medical records. Home Medications Current Medication List: was personally reviewed by me Laboratory Data Attestation: I reviewed the patient's lab results. Result diagrams: 10/03/18 16:50 10/03/18 16:50 Lab Results 10/03/18 10/03/18 10/03/18 Range/Units 16:50 16:50 16:50 WBC 10.47 (4.8-10.8) K/uL RBC 4.93 (4.2-5.4) M/uL Hgb 15.8 (12.0-16.0) g/dL Hct 47.7 H (37-47) % MCV 96.8 (80-100) fL MCH 32.0 (25-34) pg MCHC 33.1 (32-36) g/dL RDW Std Deviation 46.8 H (36.4-46.3) fL RDW Coeff of Estrellita 13.2 (11.5-14.5) % Plt Count 335 (130-400) K/uL MPV 9.4 (7.4-10.4) fL Immature Gran % (Auto) 0.2 % Neut % (Auto) 82.7 % Lymph % (Auto) 11.7 % Carroll % (Auto) 4.7 % Eos % (Auto) 0.3 % Baso % (Auto) 0.4 % Immature Gran # (Auto) 0.02 (0.00-0.02) K/uL Neut # (Auto) 8.66 H (1.4-6.5) K/uL Lymph # (Auto) 1.23 (1.2-3.4) K/uL Carroll # (Auto) 0.49 (0.11-0.59) K/uL Eos # (Auto) 0.03 (0-0.5) K/uL Baso # (Auto) 0.04 (0-0.2) K/uL Sodium 139 (136-145) mmol/L Potassium 3.6 (3.5-5.1) mmol/L Chloride 104 (98-107) mmol/L Carbon Dioxide 29 (21-32) mmol/L Anion Gap 6.0 (3-11) BUN 16 (7-18) mg/dl Creatinine 0.58 L (0.6-1.2) mg/dl Est Cr Clr Drug Dosing Not Reportable Est GFR ( Amer) 101.6 Est GFR (Non-Af Amer) 87.7 BUN/Creatinine Ratio 26.7 H (10-20) Glucose 133 H (70-99) mg/dl Calcium 9.2 (8.5-10.1) mg/dl Total Bilirubin 0.6 (0.2-1) mg/dl AST 19 (15-37) U/L ALT 27 (12-78) U/L Alkaline Phosphatase 68 (45-117) U/L Total Protein 7.7 (6.4-8.2) gm/dl Albumin 4.0 (3.4-5.0) gm/dl Globulin 3.7 (2.5-4.0) gm/dl Albumin/Globulin Ratio 1.1 (0.9-2) Lipase 20756 H (73-393) U/L Blood Type Cancelled Antibody Screen Cancelled 10/03/18 Range/Units 17:44 WBC (4.8-10.8) K/uL RBC (4.2-5.4) M/uL Hgb (12.0-16.0) g/dL Hct (37-47) % MCV (80-100) fL MCH (25-34) pg MCHC (32-36) g/dL RDW Std Deviation (36.4-46.3) fL RDW Coeff of Estrellita (11.5-14.5) % Plt Count (130-400) K/uL MPV (7.4-10.4) fL Immature Gran % (Auto) % Neut % (Auto) % Lymph % (Auto) % Carroll % (Auto) % Eos % (Auto) % Baso % (Auto) % Immature Gran # (Auto) (0.00-0.02) K/uL Neut # (Auto) (1.4-6.5) K/uL Lymph # (Auto) (1.2-3.4) K/uL Carroll # (Auto) (0.11-0.59) K/uL Eos # (Auto) (0-0.5) K/uL Baso # (Auto) (0-0.2) K/uL Sodium (136-145) mmol/L Potassium (3.5-5.1) mmol/L Chloride (98-107) mmol/L Carbon Dioxide (21-32) mmol/L Anion Gap (3-11) BUN (7-18) mg/dl Creatinine (0.6-1.2) mg/dl Est Cr Clr Drug Dosing Est GFR ( Amer) Est GFR (Non-Af Amer) BUN/Creatinine Ratio (10-20) Glucose (70-99) mg/dl Calcium (8.5-10.1) mg/dl Total Bilirubin (0.2-1) mg/dl AST (15-37) U/L ALT (12-78) U/L Alkaline Phosphatase (45-117) U/L Total Protein (6.4-8.2) gm/dl Albumin (3.4-5.0) gm/dl Globulin (2.5-4.0) gm/dl Albumin/Globulin Ratio (0.9-2) Lipase (73-393) U/L Blood Type O Negative Antibody Screen NEGATIVE Imaging Data Radiologist's Impression: Radiology results as stated below per my review and the radiologist's interpretation: CT SCAN OF THE ABDOMEN AND PELVIS WITHOUT CONTRAST CLINICAL HISTORY: Diffuse abdominal pain COMPARISON STUDY: 07/29/2018 TECHNIQUE: CT scan of the abdomen and pelvis was performed from the lung bases to the proximal femurs. Images are reviewed in the axial, sagittal, and coronal planes. IV contrast was not administered for this examination. A dose lowering technique was utilized adhering to the principles of ALARA. CT DOSE: 489.65 mGy.cm FINDINGS: Lower chest: There is a large hiatal hernia. There is a calcified left lower lobe granuloma. There are no pleural effusions. Liver: The unenhanced liver is normal in size, contour, and attenuation. There is no intrahepatic biliary ductal dilatation. Gallbladder: Unremarkable. Spleen: Normal in size and attenuation. Pancreas: There is infiltration of the peripancreatic fat, most pronounced at the level of the pancreatic tail. The findings are consistent with pancreatitis. No pancreatic ductal dilatation as visualized on this noncontrast study. Adrenal glands: Unremarkable. Kidneys: No renal, ureteral, or bladder calculi are visualized. Bilateral parapelvic cysts are suspected. Bowel: There are no transition zones indicate bowel obstruction. There is colonic diverticulosis. There is no evidence of acute diverticulitis. The descending colon abuts the inflammatory pancreatic tail process. The appendix appears normal. The stomach is distended and fluid-filled. Peritoneum: There is no intraperitoneal free air or abdominal ascites. There is a fat-containing umbilical hernia. Vasculature: The abdominal aorta is normal in course and caliber. Adenopathy: None. Pelvic viscera: There are calcified uterine fibroids present. No pathologic adnexal masses are visualized. Skeletal structures: No destructive osseous lesions are seen. IMPRESSION: 1. Fluid and fat infiltration surrounding the distal pancreatic body and tail consistent with acute pancreatitis 2. Large hiatal hernia. Mildly distended and fluid-filled stomach and hiatal hernia. 3. No evidence of bowel obstruction. No evidence of free air 4. Diverticulosis. No evidence of acute diverticulitis 5. Normal appendix Electronically signed by: Jun Francis M.D. 10/03/2018 5:26 PM XR chest 1V portable CLINICAL HISTORY: Hematemesis COMPARISON STUDY: 09/29/2017 FINDINGS: Is a calcified left lower lobe granuloma. The heart is mildly enlarged. There is a retrocardiac opacity consistent with a moderate to large hiatal hernia. There is no failure. There is no focal pulmonary consolidation. There are no pleural effusions.[ IMPRESSION: Large hiatal hernia. No acute findings. Electronically signed by: Jun Francis M.D. 10/03/2018 5:04 PM Blood Pressure Blood Pressure Findings: Elevated blood pressure Blood Pressure Disposition: further management by hospitalist AIDEN Narrative Patient is a 78-year-old female who presents the ER for severe abdominal pain located around the periumbilical region. She notes this started 2 PM. She notes she has a history of pancreatitis and this feels exactly the same but much worse. Does not drink alcohol. She does still have her gallbladder. She has about 6 episodes of this before in the past. She was initially hypertensive upon arrival. Labs were obtained and showed no leukocytosis or anemia. BMP along with LFTs bilirubin was unremarkable. Lipase was elevated at 16,000. Unable to gastrocolic the contents for which she was vomiting although it did appear to be coffee-ground. She was placed on a Protonix drip and bolus secondary to this. She was typed and crossed. CT abdomen pelvis confirms pancreatitis. Patient was given multiple doses of Dilaudid and Zofran. She did have improvement of her symptoms. She is updated bedside. She is admitted to the hospitalist for further workup. Impression & Plan Pancreatitis, Abdominal pain Discharge Plan Visit Data *Final* Discharge Date/Time: 10/03/18 19:20 Chief Complaint: Abdominal Pain Stated Complaint: ABDOMINAL PAIN- HX PANCREATITIS ED Provider: Benedict Jaimes Discharge Problem: Pancreatitis, Abdominal pain Patient Disposition: Admitted As Inpatient Discharge Instructions Interventions: ED Discharge Assessment Last Done: 10/03/18 19:20 The scribe's documentation has been prepared under my direction and personally reviewed by me in its entirety. I confirm that the note above accurately reflects all work, treatment, procedures, and medical decision making performed by me.
[2018-10-04] MEDS: PANTOprazole 40 MG in DEXTROSE 5% 100 ML IV SCH ×2 (04:18→10:51)
[2018-10-04] MEDS ORDERED: PROCHLORPERAZINE 5 MG in SYRINGE 4 ML IV ONE (04:30)
[2018-10-04] MEDS: NSS + 20MEQ KCL 20 MEQ/1,000 ML BAG IV SCH (04:36)
[2018-10-04] MEDS: HEPARIN SOD 5,000 UNIT/0.5 ML VIAL SQ SCH ×3 (06:32→21:36)
[2018-10-04 07:22] LABS: Basophils # (auto) 0.01 K/uL (0-0.2); Basophils % (auto) 0.1 %; Hematocrit (blood only) 41.5 % (37-47); Hemoglobin 13.2 g/dL (12.0-16.0); Immature Granulocytes # (auto) 0.02 K/uL (0.00-0.02); Immature Granulocytes % (auto) 0.1 %; Lymphocytes # (auto) 0.48 K/uL (1.2-3.4); Lymphocytes % (auto) 2.8 %; Mean Corpuscular Hgb Conc 31.8 g/dL (32-36); Mean Corpuscular Volume 100.7 fL (80-100); Mean Platelet Volume 9.2 fL (7.4-10.4); Monocytes # (auto) 1.16 K/uL (0.11-0.59); Monocytes % (auto) 6.8 %; Neutrophils # (auto) 15.34 K/uL (1.4-6.5); Neutrophils % (auto) 90.2 %; Platelet Count 316 K/uL (130-400); RDW Coefficient of Variation 13.7 % (11.5-14.5); RDW Standard Deviation 50.7 fL (36.4-46.3); Red Blood Count 4.12 M/uL (4.2-5.4); White Blood Count 17.01 K/uL (4.8-10.8)
[2018-10-04 08:15] LABS: BUN Creatinine Ratio 33.3 (10-20); Calcium 7.9 mg/dl (8.5-10.1); Est GFR (African American) 78.9; Est GFR (Non-African American) 68.1; Potassium 4.6 mmol/L (3.5-5.1)
[2018-10-04 08:23] LABS: Albumin Globulin Ratio 0.9 (0.9-2); Bilirubin,Total 0.5 mg/dl (0.2-1); Globulin 3.3 gm/dl (2.5-4.0); Total Protein 6.3 gm/dl (6.4-8.2)
[2018-10-04 11:20] LABS: Appearance Urine Clear (Clear); Bacteria Urine Automated Negative (Negative); Bilirubin Urine Negative (Negative); Blood Urine Trace (Negative); Color Urine Dark Yellow; Epithelial Cell Urine Auto >30 /lpf (0-5); Glucose Urine UA Trace (Negative); Ketones Urine Negative (Negative); Leukocyte Esterase Urine Negative (Negative); Nitrite Urine Negative (Negative); Protein Urine Trace (Negative); Specific Gravity Urine 1.026 (1.000-1.030); Urobilinogen Urine Negative (Negative); pH Urine 5.5 (4.5-7.5)
[2018-10-04] MEDS: PANTOprazole 40 MG in SYRINGE 0 ML IV SCH ×2 (12:25→21:36)
[2018-10-04] MEDS: LACTATED RINGER'S 1,000 ML IV SCH ×2 (12:25→18:04)
[2018-10-04] MEDS ORDERED: LACTATED RINGER'S 250 ML IV ONE (13:28)
--- NOTE | 2018-10-04 13:43 | Gastrointestinal Consultation ---
Date of Consultation October 04, 2018 Assessment & Plan (1) Pancreatitis: Pt is a78 y/o female admitted for recurrent pancreatitis. Etiology unknown. Multiple workup been done including EUS/ERCP, MRCP. She denies ETOH, tobacco, illicit drugs. + sludge in gallbladder but no obvious stones, or large pancreatic masses. She was taking many herbal supplements but had stopped them. IgG subclasses normal but BRITTA elevated. - Reported hematemesis yesterday but H/H stable, no signs of over GI bleeding since admission. Likely had Pari De La Garza tear or Diego ulcer bleed from her vomiting episodes and hx of large hiatal hernia. Will stop PPI gtt and continue IV BID form. - IVF LR @ 150ml/hr. Will add bolus LR of 250ml x 1 dose - CL diet - Symptomatic management otherwise - Encouraged to discuss w a surgeon about possible cholecystectomy - Will help move up her appt w Dr. Lindsey upon DC from hospital. Attg add: I interviewed and examined pt, reviewed chart and labs. Pt with recurrent idiopathic pancreatitis now admit again with pancreatitis. She also had episode of small volume hematemesis. Lipase increased, LFT's WNL, ct with interstitial panc; hgb with hemoconcentration. On exam, she appears comfortable , sitting in front of half-eaten clear liquid tray. She has dry membranes on exam; no abd tenderness; lungs clear; legs without edema. A/P - Recurrent panc - Vol resuscitation, pain control, diet as parisa. Ok for d/ c once parisa diet. I discussed the role of chris in treatment of recurrent panc. Regarding Hematemesis - appears small volume, likely related to vomiting and HH; defer EGD. History of Present Illness Reason for Consultation: Pancreatitis Requesting Physician: Dr. Niraj Browne Attending Physician: Dr. Cuca Faulkner History of Present Illness Pt is a 78 yo female with history of HTN, hypothyroidism, large hiatal hernia w Diego ulcers, recurrent idiopathic pancreatitis who presented to the ED yesterday c/o abd pain across mid abd area, associated w N/V, and reported hematemesis. She was feeling well but after lunch (ate mac and cheese) and doing some work around house, her symptoms started. Denies any fever, chills, bowel habit changes otherwise. Symptoms similar to her previous pancreatitis attacks. Upon evaluation in ED, labs notable for increased WBC , H/H stable, BUN/Cr normal. Lipase up 16K but normal LFTs. CT abd/pelvis w/o contrast showed fluid and fat infiltration surrounding the distal pancreatic body and tail consistent with acute pancreatitis. + large hiatal hernia, no bowel obstruction or free air, + diverticulosis w/o diverticulitis, appendix normal. Pt denies tobacco, ETOH, illicit drugs. She had multiple workup for her pancreatitis including EGD/EUS, MRCP. No absolute biliary pathology noted though + sludge in gallbladder and possible IPMN on pancreas. She had IgG subclasses test which was unremarkable. BRITTA screen was positive. She was taking many supplements and was told to stop them by Dr. Lindsey, her primary fur blowing machine attendant. She had stopped them after her last visit with him in August. Denies any other new meds or antibx. Allergies Allergy/AdvReac Type Severity Reaction Status Date / Time morphine Allergy Intermediate RASH Verified 10/03/18 17:24 Iodinated Contrast- Oral and Allergy Unknown RASH Verified 10/03/18 17:24 IV Dye latex Allergy Unknown HIVES Verified 10/03/18 17:24 Home Medications Home Medications Medication Instructions Recorded Confirmed Type cyclosporine [Restasis] 1 drp OPHTHALMIC (EYE) Q12H 07/29/18 10/03/18 History epinephrine [EpiPen] 0.3 mg IM UD PRN 07/29/18 10/03/18 History levothyroxine [Synthroid] 88 mcg PO DAILY 07/29/18 10/03/18 History yrvfyu-[id number] [Creon] 3 cap PO TID 07/29/18 10/03/18 History melatonin 3 mg PO HS PRN 07/29/18 10/03/18 History Patient History Medical History Hypertension Microscopic hematuria Hypothyroidism Recurrent pancreatitis Hiatal hernia (Acute) Lyme disease Surgical History S/P bunionectomy right foot X 2 S/P tonsillectomy and adenoidectomy age 14 years Family History Other No significant family history Social History Current Living Situation: Spouse and Family Other Information That Helps Us Care for You: No Feels Safe at Home: Yes Safety Concerns: Feels Safe At This Time Smoking Status: Never smoker Hx Alcohol Use: No Hx Substance Use: No Beliefs That Will Affect Care: None Communication Ability: Effective Review of Systems Constitutional: as per Subjective / HPI Respiratory: no cough and no dyspnea Cardiovascular: no chest pain, no lightheadedness and no edema Gastrointestinal: + abdominal pain, + nausea, + vomiting and + hematemesis; no melena Physical Exam 2 Vital Signs (Past 24 Hours): Last Vital Signs Temp 37 C 10/04/18 07:34 Pulse 111 H 10/04/18 07:34 Resp 18 10/04/18 07:34 BP 146/71 H 10/04/18 07:34 Pulse Ox 91 10/04/18 07:34 Constitutional: WD/WN, vitals as above well groomed, cooperative and comfortable Eyes: PERRL, conjunctivae normal, anicteric sclerae ENMT: external ear and nose normal, oropharynx normal Respiratory: normal respiratory effort, lungs clear to auscultation Cardiovascular: RRR, no murmur, no edema Gastrointestinal (Abdomen): Inspection/Auscultation: normal bowel sounds; abdomen not distended Percussion/Palpation: + abdomen tender (mild TTP mid section of abd ) Skin: no rashes, warm and dry no jaundice Neurologic: Motor/Sensory: no asterixis Psychiatric: A+Ox3, euthymic affect Lymphatic: no lymphedema Results & Data Laboratory Results Laboratory Results - last 72 hr 10/03/18 10/03/18 10/03/18 16:50 16:50 16:50 WBC 10.47 RBC 4.93 Hgb 15.8 Hct 47.7 H MCV 96.8 MCH 32.0 MCHC 33.1 RDW Std Deviation 46.8 H RDW Coeff of Estrellita 13.2 Plt Count 335 MPV 9.4 Immature Gran % (Auto) 0.2 Neut % (Auto) 82.7 Lymph % (Auto) 11.7 [place] % (Auto) 4.7 Eos % (Auto) 0.3 Baso % (Auto) 0.4 Immature Gran # (Auto) 0.02 Neut # (Auto) 8.66 H Lymph # (Auto) 1.23 [place] # (Auto) 0.49 Eos # (Auto) 0.03 Baso # (Auto) 0.04 Sodium 139 Potassium 3.6 Chloride 104 Carbon Dioxide 29 Anion Gap 6.0 BUN 16 Creatinine 0.58 L Est Cr Clr Drug Dosing Not Reportable Est GFR ( Amer) 101.6 Est GFR (Non-Af Amer) 87.7 BUN/Creatinine Ratio 26.7 H Glucose 133 H Calcium 9.2 Total Bilirubin 0.6 AST 19 ALT 27 Alkaline Phosphatase 68 Total Protein 7.7 Albumin 4.0 Globulin 3.7 Albumin/Globulin Ratio 1.1 Lipase 39280 H Urine Color Urine Appearance Urine pH Ur Specific [place] Urine Protein Urine Glucose (UA) Urine Ketones Urine Blood Urine Nitrite Urine Bilirubin Urine Urobilinogen Ur Leukocyte Esterase Urine WBC (Auto) Urine RBC (Auto) U Hyaline Cast (Auto) U Epithel Cells (Auto) Urine Bacteria (Auto) Blood Type Cancelled Antibody Screen Cancelled 10/03/18 10/04/18 10/04/18 17:44 07:06 07:06 WBC 17.01 H RBC 4.12 L Hgb 13.2 Hct 41.5 MCV 100.7 H MCH 32.0 MCHC 31.8 L RDW Std Deviation 50.7 H RDW Coeff of [place] 13.7 Plt Count 316 MPV 9.2 Immature Gran % (Auto) 0.1 Neut % (Auto) 90.2 Lymph % (Auto) 2.8 [place] % (Auto) 6.8 Eos % (Auto) 0.0 Baso % (Auto) 0.1 Immature Gran # (Auto) 0.02 Neut # (Auto) 15.34 H Lymph # (Auto) 0.48 L [place] # (Auto) 1.16 H Eos # (Auto) 0.00 Baso # (Auto) 0.01 Sodium 141 Potassium 4.6 D Chloride 111 H Carbon Dioxide 20 L Anion Gap 10.0 BUN 27 H D Creatinine 0.82 Est Cr Clr Drug Dosing 51.0 Est GFR ( Amer) 78.9 Est GFR (Non-Af Amer) 68.1 BUN/Creatinine Ratio 33.3 H Glucose 194 H Calcium 7.9 L Total Bilirubin 0.5 AST 14 L ALT 22 Alkaline Phosphatase 53 Total Protein 6.3 L Albumin 3.0 L Globulin 3.3 Albumin/Globulin Ratio 0.9 Lipase 6413 H Urine Color Urine Appearance Urine pH Ur Specific [place] Urine Protein Urine Glucose (UA) Urine Ketones Urine Blood Urine Nitrite Urine Bilirubin Urine Urobilinogen Ur Leukocyte Esterase Urine WBC (Auto) Urine RBC (Auto) U Hyaline Cast (Auto) U Epithel Cells (Auto) Urine Bacteria (Auto) Blood Type O Negative Antibody Screen NEGATIVE 10/04/18 09:40 WBC RBC Hgb Hct MCV MCH MCHC RDW Std Deviation RDW Coeff of [place]rellita Plt Count MPV Immature Gran % (Auto) Neut % (Auto) Lymph % (Auto) [place] % (Auto) Eos % (Auto) Baso % (Auto) Immature Gran # (Auto) Neut # (Auto) Lymph # (Auto) [place] # (Auto) Eos # (Auto) Baso # (Auto) Sodium Potassium Chloride Carbon Dioxide Anion Gap BUN Creatinine Est Cr Clr Drug Dosing Est GFR ( Amer) Est GFR (Non-Af Amer) BUN/Creatinine Ratio Glucose Calcium Total Bilirubin AST ALT Alkaline Phosphatase Total Protein Albumin Globulin Albumin/Globulin Ratio Lipase Urine Color Dark Yellow Urine Appearance Clear Urine pH 5.5 Ur Specific [place] 1.026 Urine Protein Trace H Urine Glucose (UA) Trace H Urine Ketones Negative Urine Blood Trace H Urine Nitrite Negative Urine Bilirubin Negative Urine Urobilinogen Negative Ur Leukocyte Esterase Negative Urine WBC (Auto) 1-5 Urine RBC (Auto) 5-10 H U Hyaline Cast (Auto) 5-10 H U Epithel Cells (Auto) >30 H Urine Bacteria (Auto) Negative Blood Type Antibody Screen _ (1) Pancreatitis Acute pancreatitis complication: Chronicity: chronic Pancreatitis type: unspecified pancreatitis type Qualified Code(s): K86.1 - Other chronic pancreatitis
--- NOTE | 2018-10-04 14:27 | Hospitalist Progress Note ---
Date of Service October 04, 2018 Assessment & Plan (1) Recurrent pancreatitis: H/o idiopathic pancreatitis, this is her 5th bout of pancreatitis. Most recently had a bout in July and then August. - Seen by GI who feel that cholecystectomy may help with idiopathic pancreatitis - Follows with Dr. Lindsey as outpatient - Will get closer follow up appointment - Pain control with Dilaudid and ketorolac (2) Leukocytosis: Likely reactive from pancreatitis. No fevers, or focal signs of infection. - Monitor (3) Hypothyroidism: Held on Synthroid while NPO. - Restarted on 10/04 (4) Hypertension: BP markedly elevated, due to pain initially. Presently, BP closer to baselin of 145/71. - Control pain - Hydralazine PRN for BP > 180/110 (5) DVT prophylaxis: Heparin 5000 units Q8h Subjective 78yo F w/ recurrent idiopathic pancreatitis who presents with recurrent pancreatitis. Pain is improved today with Dilaudid. Reports she got one dose, and felt significantly better. Minimal abomdinal pain. No current vomiting, but some nausea. Reports no fevers/chills, chest pain, or shortness of breath. Physical Exam 2 Vital Signs (Past 24 Hours): Last Vital Signs Temp 37 C 10/04/18 07:34 Pulse 111 H 10/04/18 07:34 Resp 18 10/04/18 07:34 BP 146/71 H 10/04/18 07:34 Pulse Ox 91 10/04/18 07:34 Constitutional: WD/WN, vitals as above + well hydrated Eyes: PERRL, conjunctivae normal, anicteric sclerae ENMT: external ear and nose normal, oropharynx normal Neck: trachea midline, no thyromegaly Respiratory: normal respiratory effort, lungs clear to auscultation Cardiovascular: RRR, no murmur, no edema Gastrointestinal (Abdomen): Inspection/Auscultation: abdomen normal to inspection and normal bowel sounds; abdomen not distended Percussion/ Palpation: abdomen soft Musculoskeletal: no cyanosis or clubbing, extremities motor strength 5/5 Skin: no rashes, warm and dry Psychiatric: A+Ox3, euthymic affect Lymphatic: no cervical or axillary lymphadenopathy
[2018-10-04] MEDS ORDERED: [UNRECOGNIZED DRUG - REMARK] OP PRN (16:33)
[2018-10-04] MEDS ORDERED: Nursing to Pharmacy Communication ONE (21:58)
[2018-10-05] MEDS: LACTATED RINGER'S 1,000 ML IV SCH ×2 (00:46→06:52)
[2018-10-05] MEDS: HEPARIN SOD 5,000 UNIT/0.5 ML VIAL SQ SCH (05:57)
[2018-10-05 06:22] LABS: Hematocrit (blood only) 37.7 % (37-47); Hemoglobin 12.1 g/dL (12.0-16.0); Mean Corpuscular Hgb Conc 32.1 g/dL (32-36); Mean Corpuscular Volume 98.7 fL (80-100); Mean Platelet Volume 9.2 fL (7.4-10.4); Platelet Count 236 K/uL (130-400); RDW Coefficient of Variation 13.8 % (11.5-14.5); RDW Standard Deviation 49.7 fL (36.4-46.3); Red Blood Count 3.82 M/uL (4.2-5.4); White Blood Count 9.74 K/uL (4.8-10.8)
[2018-10-05] MEDS ORDERED: LEVOTHYROXINE SODIUM 88 MCG TABLET PO SCH (06:30)
[2018-10-05 06:57] LABS: Albumin Level 2.8 gm/dl (3.4-5.0); BUN Creatinine Ratio 30.2 (10-20); Bilirubin,Total 0.8 mg/dl (0.2-1); Calcium 8.1 mg/dl (8.5-10.1); Creatinine Clr Calc Pharmacy 77.4 ml/min; Est GFR (Non-African American) 89.8; Globulin 2.8 gm/dl (2.5-4.0); Magnesium 1.6 mg/dl (1.8-2.4); Potassium 4.1 mmol/L (3.5-5.1); Total Protein 5.6 gm/dl (6.4-8.2)
[2018-10-05] MEDS: MAGNESIUM SULFATE / D5W 1 GM/100 ML BAG IV SCH ×2 (08:34→09:35)
--- NOTE | 2018-10-05 09:28 | Gastroenterology Progress Note ---
Date of Service October 05, 2018 Assessment & Plan (1) Hiatal hernia: (2) Recurrent pancreatitis: Pt is a 78 y/o female admitted for recurrent pancreatitis. Etiology unknown. Multiple workup been done including EUS/ERCP, MRCP. She denies ETOH, tobacco, illicit drugs. + sludge in gallbladder but no obvious stones, or large pancreatic masses. She was taking many herbal supplements but had stopped them. IgG subclasses normal but BRITTA elevated. - Reported hematemesis on admission but H/H stable, no signs of over GI bleeding since admission. Likely had Pari De La Garza tear or Diego ulcer bleed from her vomiting episodes and hx of large hiatal hernia. Will stop PPI gtt and continue IV BID form. Defer EGD. - DC IVF - FL diet; advance as tolerated - Symptomatic management otherwise - Encouraged to discuss w a surgeon about possible cholecystectomy or consider use of ursodiol (will discuss with Dr. Lindsey, her primary leather coverer) - Will help move up her appt w Dr. Lindsey upon DC from hospital. - No contraindication for DC from GI standpoint Supervising Physician Co-Signing Physician Notes I performed a history and physical examination of the patient, including specifically on physical exam - soft, nontender abdomen. I have discussed the patient's management with Gloria. Please refer to the nurse practitioner's note for the documented findings and plan of care. Patient recurrent idiopatheic pancreatitis, EUs showed BG sludge. I discussed with her that she will benefit from cholecystectomy as microlithiasis could be the cause of her pancreatitis. If pancreatitis recurs afterwards then will need sphincterotomy for possible SOD. Recall Gi if needed. Subjective Pt feels well, no acute events overnight afebriel, denies any abd pain, n/v, desires to go home today Physical Exam 2 Vital Signs (Past 24 Hours): Last Vital Signs Temp 37.0 C 10/05/18 08:14 Pulse 67 10/05/18 08:14 Resp 20 10/05/18 08:14 BP 155/74 H 10/05/18 08:14 Pulse Ox 94 10/05/18 08:14 Constitutional: WD/WN, vitals as above well groomed, cooperative and comfortable Eyes: PERRL, conjunctivae normal, anicteric sclerae ENMT: external ear and nose normal, oropharynx normal Respiratory: normal respiratory effort, lungs clear to auscultation Cardiovascular: RRR, no murmur, no edema Gastrointestinal (Abdomen): normal bowel sounds, soft, nontender, no hepatosplenomegaly Skin: no rashes, warm and dry no jaundice Neurologic: Motor/Sensory: no asterixis Psychiatric: A+Ox3, euthymic affect Lymphatic: no lymphedema Results & Data Laboratory Results Laboratory Results - last 72 hr 10/03/18 10/03/18 10/03/18 16:50 16:50 16:50 WBC 10.47 RBC 4.93 Hgb 15.8 Hct 47.7 H MCV 96.8 MCH 32.0 MCHC 33.1 RDW Std Deviation 46.8 H RDW Coeff of Estrellita 13.2 Plt Count 335 MPV 9.4 Immature Gran % (Auto) 0.2 Neut % (Auto) 82.7 Lymph % (Auto) 11.7 [place] % (Auto) 4.7 Eos % (Auto) 0.3 Baso % (Auto) 0.4 Immature Gran # (Auto) 0.02 Neut # (Auto) 8.66 H Lymph # (Auto) 1.23 [place] # (Auto) 0.49 Eos # (Auto) 0.03 Baso # (Auto) 0.04 Sodium 139 Potassium 3.6 Chloride 104 Carbon Dioxide 29 Anion Gap 6.0 BUN 16 Creatinine 0.58 L Est Cr Clr Drug Dosing Not Reportable Est GFR ( Amer) 101.6 Est GFR (Non-Af Amer) 87.7 BUN/Creatinine Ratio 26.7 H Glucose 133 H Calcium 9.2 Magnesium Total Bilirubin 0.6 AST 19 ALT 27 Alkaline Phosphatase 68 Total Protein 7.7 Albumin 4.0 Globulin 3.7 Albumin/Globulin Ratio 1.1 Triglycerides Cholesterol LDL Cholesterol, Calc VLDL Cholesterol, Calc HDL Cholesterol Cholesterol/HDL Ratio Lipase 43873 H Urine Color Urine Appearance Urine pH Ur Specific [place] Urine Protein Urine Glucose (UA) Urine Ketones Urine Blood Urine Nitrite Urine Bilirubin Urine Urobilinogen Ur Leukocyte Esterase Urine WBC (Auto) Urine RBC (Auto) U Hyaline Cast (Auto) U Epithel Cells (Auto) Urine Bacteria (Auto) Blood Type Cancelled Antibody Screen Cancelled 10/03/18 10/04/18 10/04/18 17:44 07:06 07:06 WBC 17.01 H RBC 4.12 L Hgb 13.2 Hct 41.5 MCV 100.7 H MCH 32.0 MCHC 31.8 L RDW Std Deviation 50.7 H RDW Coeff of [place]rellita 13.7 Plt Count 316 MPV 9.2 Immature Gran % (Auto) 0.1 Neut % (Auto) 90.2 Lymph % (Auto) 2.8 [place] % (Auto) 6.8 Eos % (Auto) 0.0 Baso % (Auto) 0.1 Immature Gran # (Auto) 0.02 Neut # (Auto) 15.34 H Lymph # (Auto) 0.48 L [place] # (Auto) 1.16 H Eos # (Auto) 0.00 Baso # (Auto) 0.01 Sodium 141 Potassium 4.6 D Chloride 111 H Carbon Dioxide 20 L Anion Gap 10.0 BUN 27 H D Creatinine 0.82 Est Cr Clr Drug Dosing 51.0 Est GFR ( Amer) 78.9 Est GFR (Non-Af Amer) 68.1 BUN/Creatinine Ratio 33.3 H Glucose 194 H Calcium 7.9 L Magnesium Total Bilirubin 0.5 AST 14 L ALT 22 Alkaline Phosphatase 53 Total Protein 6.3 L Albumin 3.0 L Globulin 3.3 Albumin/Globulin Ratio 0.9 Triglycerides Cholesterol LDL Cholesterol, Calc VLDL Cholesterol, Calc HDL Cholesterol Cholesterol/HDL Ratio Lipase 6413 H Urine Color Urine Appearance Urine pH Ur Specific [place] Urine Protein Urine Glucose (UA) Urine Ketones Urine Blood Urine Nitrite Urine Bilirubin Urine Urobilinogen Ur Leukocyte Esterase Urine WBC (Auto) Urine RBC (Auto) U Hyaline Cast (Auto) U Epithel Cells (Auto) Urine Bacteria (Auto) Blood Type O Negative Antibody Screen NEGATIVE 10/04/18 10/05/18 10/05/18 09:40 06:11 06:11 WBC 9.74 RBC 3.82 L Hgb 12.1 Hct 37.7 MCV 98.7 MCH 31.7 MCHC 32.1 RDW Std Deviation 49.7 H RDW Coeff of [place] 13.8 Plt Count 236 MPV 9.2 Immature Gran % (Auto) Neut % (Auto) Lymph % (Auto) [place] % (Auto) Eos % (Auto) Baso % (Auto) Immature Gran # (Auto) Neut # (Auto) Lymph # (Auto) [place] # (Auto) Eos # (Auto) Baso # (Auto) Sodium 142 Potassium 4.1 Chloride 112 H Carbon Dioxide 27 Anion Gap 3.0 BUN 16 Creatinine 0.54 L Est Cr Clr Drug Dosing 77.4 Est GFR ( Amer) 104.0 Est GFR (Non-Af Amer) 89.8 BUN/Creatinine Ratio 30.2 H Glucose 83 Calcium 8.1 L Magnesium 1.6 L Total Bilirubin 0.8 AST 14 L ALT 17 Alkaline Phosphatase 41 L Total Protein 5.6 L Albumin 2.8 L Globulin 2.8 Albumin/Globulin Ratio 1.0 Triglycerides 96 Cholesterol 148 LDL Cholesterol, Calc 68 VLDL Cholesterol, Calc 19 HDL Cholesterol 61 Cholesterol/HDL Ratio 2 Lipase 489 H Urine Color Dark Yellow Urine Appearance Clear Urine pH 5.5 Ur Specific [place] 1.026 Urine Protein Trace H Urine Glucose (UA) Trace H Urine Ketones Negative Urine Blood Trace H Urine Nitrite Negative Urine Bilirubin Negative Urine Urobilinogen Negative Ur Leukocyte Esterase Negative Urine WBC (Auto) 1-5 Urine RBC (Auto) 5-10 H U Hyaline Cast (Auto) 5-10 H U Epithel Cells (Auto) >30 H Urine Bacteria (Auto) Negative Blood Type Antibody Screen
[2018-10-05] MEDS: PANTOprazole 40 MG in SYRINGE 0 ML IV SCH (09:35)
--- NOTE | 2018-10-05 17:20 | Discharge Summary ---
Date of Service October 05, 2018 Admission HPI Per Admitting Provider 78 yo female with history of recurrent idiopathic pancreatitis presents to the ED c/o severe, sharp epigastric pain that started at 2pm today. The patient felt well this morning, ate breakfast and lunch without any pain or nausea. She moved her bowels twice today, normal caliber. At 2pm she felt sharp, intense pain and it was associated with intense nausea. The pain radiated to her back. Nothing she did made the pain better. Her appetite was gone. She felt the same as when she had her previous pancreatitis attacks. She came to the ED. Her lipase was 16k and CT abdomen/pelvis showed acute pancreatitis, no necrosis. She was started on IV fluids and given Dilaudid 1mg IV, did not help long and required an additional dose of 1mg IV. Reviewing previous records, she follows with Dr. Lindsey with [facility] [place]. She was worked up for pancreatitis with MRCP and endoscopic US but no etiology for the attacks could be determined. She does not drink. No gall stones have every been seen. She said that there was some brief discussion about taking out gall bladder but that plan was placed on hold. Her last admission lasted less than 48 hours, she felt better with IV fluids and pain control and went home. She was supposed to follow up with Dr. Lindsey but that appointment is a few weeks away. Principal Diagnosis recurrent idiopathic pancreatitis Discharge Exam Constitutional WD/WN, vitals as above + acute distress (mild distress due to pain) and + well hydrated Eyes PERRL, conjunctivae normal, anicteric sclerae ENMT external ear and nose normal, oropharynx normal Neck trachea midline, no thyromegaly Respiratory normal respiratory effort, lungs clear to auscultation Cardiovascular RRR, no murmur, no edema Gastrointestinal (Abdomen) Inspection/Auscultation: abdomen normal to inspection and normal bowel sounds; abdomen not distended Percussion/Palpation: + abdomen tender (epigastric, very tender), + guarding and abdomen soft Musculoskeletal no cyanosis or clubbing, extremities motor strength 5/5 Skin no rashes, warm and dry Psychiatric A+Ox3, euthymic affect Lymphatic no cervical or axillary lymphadenopathy Discharge Data Allergies Allergy/AdvReac Type Severity Reaction Status Date / Time morphine Allergy Intermediate RASH Verified 10/03/18 17:24 Iodinated Contrast- Oral and Allergy Unknown RASH Verified 10/03/18 17:24 IV Dye latex Allergy Unknown HIVES Verified 10/03/18 17:24 Consultations 10/03/18 17:53 ED Decision to Admit Stat 10/03/18 20:50 Consult Case Management - Discharge Planning Routine Consult Gastroenterology Routine Ordered Studies 10/03/18 16:41 CT abd pelvis wo con Stat Hospital Course (1) Recurrent pancreatitis: H/o idiopathic pancreatitis, this is her 5th bout of pancreatitis. Most recently had a bout in July and then August. - Seen by GI who feel that cholecystectomy may help with idiopathic pancreatitis - Follows with Dr. Lindsey as outpatient - Will get closer follow up appointment - Pain controlled with Dilaudid and ketorolac - On 10/05, patient was pain-free and tolerating diet - Discharged for outpatient follow up (2) Leukocytosis: Likely reactive from pancreatitis. No fevers, or focal signs of infection. - Resolved by discharge (3) Hypothyroidism: Held on Synthroid while NPO. - Restarted on 10/04 (4) Hypertension: BP markedly elevated, due to pain initially. Presently, BP closer to baseline of 145/71. - Control pain - Hydralazine PRN for BP > 180/110 (5) DVT prophylaxis: Heparin 5000 units Q8h Total Time Total Time Spent Total Time Spent (In Minutes): 40 Total Time Includes: Examination of the Patient, Discharge Planning, Medication Reconciliation and Communication With Other Providers Discharge Plan Discharge Items Patient Disposition: Home - Self-Care Reason For Visit: RECURRENT PANCREATITIS Discharge Diagnosis: Pancreatitis Discharge Goals: Decrease discomfort Activity: Resume your previous activity Non-emergency contact: Primary Care Provider and Commercial Singer Call non-emergency contact if: you have any medication questions, your pain is not controlled, your pain is worsening and your temperature is above 100.5 Follow-up/Referrals: Rob Mayers MD [Primary Care Provider] - (Please see Dr. Mayers in 1-2 weeks for follow up.) Bello Lindsey [Physician] - 10/26/18 9:00 am (Please see Dr. Lindsey in the office in 1-2 weeks for further care of your pancreatitis. After pt had discharged an appointment was made on pt's behalf with Dr. Lindsey at the [place] [facility]. Left voicemail for pt without appt information asking for callback. ) Diet: Low Fat Addtl Provider Instructions: Ms. Vidales, You were admitted to the hospital with pancreatitis. You have had several episodes of this and undergone testing. You got IV pain medications and fluids, and you felt better. Please follow up with the GI doctors (Dr. Lindsey) as soon as you are able to discuss any further testing. The GI doctors would also like you to follow up with the general surgery team to discuss whether or not you need to have your gallbaldder taken out. Please come back to the hospital with any further pain, fevers, chills, nausea, or other concerning symptoms. Prescriptions: Continue melatonin 3 mg Tablet 3 mg PO HS PRN (Reason: Sleep) RF: 0 levothyroxine [Synthroid] 88 mcg Tablet 88 mcg PO DAILY RF: 0 epinephrine [EpiPen] 0.3 mg/0.3 mL Auto-Injector 0.3 mg IM UD PRN (Reason: Allergic Reaction) RF: 0 cyclosporine [Restasis] 0.05 % Dropperette 1 drp OPHTHALMIC (EYE) Q12H RF: 0 jyvyxd-[id number]-cnfeahl [Creon] 12,000-38,000 -60,000 unit Capsule,Delayed Release(Dr/Ec) 3 cap PO TID RF: 0 Stand-Alone Forms: [facility] Discharge Orders: Discharge Order (Routine); Ordered 10/05/18 Ordered By: Niraj Browne Admission Data Admit Date/Time: 10/03/18 17:56 Attending Provider: Niraj Browne Admit Provider: Patrick Trinh Primary Care Provider: Rbo Mayers Other Providers: Jimena Trinh ; Angela Angeles ; Melissa Bojorquez ; Bello Lindsey ; Jl Wen ; Cuca Bustos ; Sho Blanco ; Rob Nassar ; Peyman Barkley ; Annabelle Quiroz ; Amy Sandoval ; Gloria Angel ; Betsey Mckeon ; Samir Mclain ; Niraj Browne Service: Medical Other Interventions: Discharge Summary Assessment (RN) Last Done: 10/05/18 13:24 DC Date/Time DO NOT enter until pt leaves facility: 10/05/18 13:54
== END 2018-10-05 13:54 | disposition home or self-care (01) | DRG 439 ==
LOC: ED 16:24 → 2N 17:56 → SUATTDRO 17:56 → 2N 19:20

== ENCOUNTER 2018-10-11 17:35 | Inpatient (IN) ==
[2018-10-11] MEDS ORDERED: HYDROmorphone INJ 1 MG/ML SYRINGE IV STA ×2 (17:40→18:50)
[2018-10-11] MEDS ORDERED: ONDANSETRON INJ 2 MG/ML 2 ML VIAL IV STA ×2 (17:40→18:50)
[2018-10-11] MEDS ORDERED: KETOROLAC TROMETHAMINE 15 MG/ML VIAL IV STA (17:41)
[2018-10-11 18:49] LABS: Basophils # (auto) 0.08 K/uL (0-0.2); Basophils % (auto) 0.8 %; Eosinophils # (auto) 0.06 K/uL (0-0.5); Eosinophils % (auto) 0.6 %; Hemoglobin 15.2 g/dL (12.0-16.0); Immature Granulocytes # (auto) 0.02 K/uL (0.00-0.02); Immature Granulocytes % (auto) 0.2 %; Lymphocytes % (auto) 13.7 %; Mean Corpuscular Volume 96.6 fL (80-100); Mean Platelet Volume 9.7 fL (7.4-10.4); Monocytes % (auto) 6.3 %; Neutrophils # (auto) 7.43 K/uL (1.4-6.5); Neutrophils % (auto) 78.4 %; Platelet Count 433 K/uL (130-400); RDW Coefficient of Variation 13.2 % (11.5-14.5); RDW Standard Deviation 46.8 fL (36.4-46.3); Red Blood Count 4.76 M/uL (4.2-5.4); White Blood Count 9.49 K/uL (4.8-10.8)
[2018-10-11] MEDS ORDERED: PANTOprazole 40 MG in SYRINGE 0 ML IV ONE (18:50)
[2018-10-11] MEDS ORDERED: SODIUM CHLORIDE 0.9% 1000ML 1,000 ML IV ONE (18:50)
[2018-10-11 19:10] LABS: Alanine Aminotransferase 32 U/L (12-78); Albumin Level 3.9 gm/dl (3.4-5.0); Alkaline Phosphatase 60 U/L (45-117); Aspartate Aminotransferase 27 U/L (15-37); BUN Creatinine Ratio 17.9 (10-20); Bilirubin,Total 0.5 mg/dl (0.2-1); Blood Urea Nitrogen 11 mg/dl (7-18); Calcium 9.4 mg/dl (8.5-10.1); Carbon Dioxide 28 mmol/L (21-32); Chloride 103 mmol/L (98-107); Creatinine Clr Calc Pharmacy 67.7 ml/min; Est GFR (African American) 99.4; Est GFR (Non-African American) 85.8; Globulin 4.1 gm/dl (2.5-4.0); Glucose 109 mg/dl (70-99); Potassium 3.9 mmol/L (3.5-5.1); Sodium 139 mmol/L (136-145); Troponin I < 0.015 ng/ml (0-0.045)
[2018-10-11 19:25] LABS: Appearance Urine Turbid (Clear); Bacteria Urine Automated Negative (Negative); Bilirubin Urine Negative (Negative); Blood Urine Negative (Negative); Color Urine Yellow; Epithelial Cell Urine Auto >30 /lpf (0-5); Glucose Urine UA Negative (Negative); Leukocyte Esterase Urine Negative (Negative); Nitrite Urine Negative (Negative); Urobilinogen Urine Negative (Negative); pH Urine >= 9.0 (4.5-7.5)
[2018-10-11 19:34] LABS: Protein Urine 1+ (Negative)
[2018-10-11 19:35] LABS: Ketones Urine 3+ (Negative)
--- NOTE | 2018-10-11 20:08 | History & Physical Report ---
Date of Service October 11, 2018 Assessment & Plan (1) Pancreatitis: 78 y/o F Hx hypothyroid, recurrent pancreatitis of undetermined etiology. She had been admitted twice over the past two months for pancreatitis. She returned to the ER a few days ago and was DCd after receiving some IVF and pain meds. She returns with worsening pain. Initial labs demonstrate an acute lipase elevation and are otherwise unremarkable. 1) Pancreatitis - IVF, pain control, NPO - Creon held while she is NPO - we naty consult sharona gastroeneterologist as her admissions are becoming more frequent. Apparently there was some discussion reg a cholecystectomy as it was postulated that her recurrent episodes may be due to sludge and biliary stasis. This would certainly be preferable to a pancreatectomy at her age, although, if her episodes continue to increase in infrequency, this would likely have to be entertained. Presumably the blood streaking in her vomitus is due to heaving and likely esophageal. We will monitor and avoid anticoagulation at present. 2) Hypothyroid - cont Synthroid 3) She tends to become hypertensive while hospitalized, although she does not carry this diagnosis. Pain meds and ativan seem to help. Full code - SCDs due to blood in vomit Total time for this admit including review of labs, meds, imaging, records - discussion with pt and ER attending History of Present Illness Chief Complaint: 78 y/o F Hx hypothyroid, recurrent pancreatitis of undetermined etiology. She had been admitted twice over the past two months for pancreatitis. She returned to the ER a few days ago and was DCd after receiving some IVF and pain meds. She returns with worsening pain, nausea and vomiting. She describes some blood streaks in her vomitus. Initial labs demonstrate an acute lipase elevation and are otherwise unremarkable. PMH: 1) Recurrent, idiopathic pancreatitis with pancreatic insufficiency 2) Hypothyroid 3) Hiatal hernia Family: Mother due to complications of COPD Father due to CAD/GA Social: No history of smoking or alcohol use Primary Care Provider: Rob Mayers MD Allergies Allergy/AdvReac Type Severity Reaction Status Date / Time morphine Allergy Intermediate RASH Verified 10/11/18 18:40 Iodinated Contrast- Oral and Allergy Unknown RASH Verified 10/11/18 18:40 IV Dye latex Allergy Unknown HIVES Verified 10/11/18 18:40 Home Medications Home Medications Medication Instructions Recorded Confirmed Type Creon 3 cap PO TID 07/29/18 10/11/18 History Restasis 1 drp OPHTHALMIC (EYE) Q12H 07/29/18 10/11/18 History epinephrine [EpiPen] 0.3 mg IM UD PRN 07/29/18 10/11/18 History levothyroxine [Synthroid] 88 mcg PO QAM 07/29/18 10/11/18 History melatonin 3 mg PO HS PRN 07/29/18 10/11/18 History Past Med/Surg History Medical History Hypertension Microscopic hematuria Hypothyroidism Recurrent pancreatitis Hiatal hernia (Acute) Lyme disease Surgical History S/P bunionectomy right foot X 2 S/P tonsillectomy and adenoidectomy age 14 years Family History Other No significant family history Social History Preferred Language: Malay Beliefs That Will Affect Care: None Current Living Situation: Spouse and Family Feels Safe at Home: Yes Smoking Status: Never smoker Hx Alcohol Use: No Hx Substance Use: No Review of Systems Gen: Denies fevers, night sweats, rigors, fatigue, malaise, weight loss/gain ENT: Denies congestion, throat pain, hearing loss Eyes: Denies acute visual changes CV: Denies CP, palpitations Pulmonary: Denies SOB, cough, wheezing GI: Abdominal pain, nausea, vomiting with blood streaks as above Neuro: Denies acute or unilateral weakness, acute gait impairment, headache or acute visual changes Musculoskeletal: Denies joint pain, inflammation Endocrine: Denies polydipsia, polyuria Skin: Denies acute rashes or ulcers Physical Exam Vital Signs (Past 24 Hours): Last Vital Signs Temp 36.7 C 10/11/18 17:37 Pulse 90 10/11/18 19:14 Resp 20 10/11/18 19:14 BP 151/108 H 10/11/18 19:14 Pulse Ox 98 10/11/18 19:14 Physical Exam: General: AAO x 3, no distress ENT: No erythema or exudates, no thrush Eyes: LIN, EOMI Head and neck: Normocephalic, atraumatic, No JVD, neck is supple. Chest/heart: Nontender, S1,2, RRR, no murmurs, no gallops Lungs: CTAB, no wheezing or crackles Abdomen: There is mild tenderness to palpation of the upper quadrants which does not localize well Neuro: AAO x 3, speech is clear, no unilateral weakness or loss of sensation, coordination intact Musculoskeletal: No joint inflammation, muscle tenderness, FROM Skin: No acute rashes or ulcers Extremities: No clubbing, cyanosis, edema (1) Pancreatitis Chronicity: chronic Pancreatitis type: unspecified pancreatitis type Qualified Code(s): K86.1 - Other chronic pancreatitis
[2018-10-11] MEDS ORDERED: ENOXAPARIN INJ 30 MG/0.3 ML SYR SQ SCH (20:32)
--- NOTE | 2018-10-11 22:01 | Emergency Department Note ---
Entered by Raven Malnoe acting as a scribe for Noe Mccain M.D. History of Present Illness General Chief complaint: GI Assessment Stated complaint: PANCREATITIS, VOMITING, PAIN Source: patient Mode of arrival: ambulatory Limitations: no limitations History of Present Illness Provider complaint: Abd pain Onset (ago): hour(s) (4-6 hours ) Location: abdomen Severity: moderate Pain Consistency: + constant Maximum Pain Intensity: 10 Associated symptoms: + denies other symptoms and + nausea/vomiting; no cough, no fever/chills and no headaches Treatments prior to arrival: none Patient is a 78 year old female presenting to the ED with abd pain beginning today. Pain is located in the upper abd, moderate in severity and constant since. Patient notes that she was seen in the ED x2 weeks with pancreatitis, and pain is consistent with that. She notes she is having nausea and multiple episodes of vomiting. She denies taking any medication for the pain or vomiting. Patient denies any cough, fevers, CP, SOB, or any other complaints or concerns at this time. Patient has hx of hypothyroidism and HTN. Home Medications Home Medications Medication Instructions Recorded Confirmed Type Creon 3 cap PO TID 07/29/18 10/11/18 History Restasis 1 drp OPHTHALMIC (EYE) Q12H 07/29/18 10/11/18 History epinephrine [EpiPen] 0.3 mg IM UD PRN 07/29/18 10/11/18 History levothyroxine [Synthroid] 88 mcg PO QAM 07/29/18 10/11/18 History melatonin 3 mg PO HS PRN 07/29/18 10/11/18 History Allergies Allergy/AdvReac Type Severity Reaction Status Date / Time morphine Allergy Intermediate RASH Verified 10/11/18 18:40 Iodinated Contrast- Oral and Allergy Unknown RASH Verified 10/11/18 18:40 IV Dye latex Allergy Unknown HIVES Verified 10/11/18 18:40 Past Med/Surg History Medical History Hypertension Microscopic hematuria Hypothyroidism Recurrent pancreatitis Hiatal hernia (Acute) Lyme disease Surgical History S/P bunionectomy right foot X 2 S/P tonsillectomy and adenoidectomy age 14 years Family History Other No significant family history Social History Preferred Language: Japanese Communication Ability: Effective 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 and A total of 10 systems reviewed and were otherwise negative Physical Exam Vital Signs Vital Signs - 24 hr 10/11/18 17:37 10/11/18 18:10 10/11/18 19:14 Temperature 36.7 C Temperature Source Oral Sepsis Recent Fever Within 48 Hours No Sepsis Action Taken by Nursing No Action Required Pulse Rate 85 Pulse Rate [Apical] 90 Pulse Rate [Right] Pulse Rhythm Regular Pulse Rhythm [Right] Pulse Strength Normal Pulse Strength [Right] Respiratory Rate 20 20 Respiratory Effort / Characteristics Non-Labored Spontaneous Respiratory Depth Normal Respiratory Pattern Regular Blood Pressure 189/113 H Blood Pressure [Right Arm] 151/108 H Blood Pressure Mean 138 Blood Pressure Mean [Right Arm] 122 Blood Pressure Position Sitting Blood Pressure Position [Right Arm] Pulse Oximetry 97 97 98 Oxygen Delivery Method Room Air Room Air Room Air 10/11/18 20:24 10/11/18 20:40 10/11/18 20:57 Temperature 36.5 C Temperature Source Oral Sepsis Recent Fever Within 48 Hours Sepsis Action Taken by Nursing Pulse Rate 88 Pulse Rate [Apical] Pulse Rate [Right] 88 Pulse Rhythm Pulse Rhythm [Right] Regular Pulse Strength Pulse Strength [Right] Normal Respiratory Rate 20 Respiratory Effort / Characteristics Respiratory Depth Respiratory Pattern Blood Pressure 180/97 H Blood Pressure [Right Arm] 189/105 H Blood Pressure Mean Blood Pressure Mean [Right Arm] 133 Blood Pressure Position Blood Pressure Position [Right Arm] Sitting Pulse Oximetry 94 94 Oxygen Delivery Method Room Air Room Air Room Air GENERAL: Awake, alert, crying in tears with pain HENT: Normocephalic, atraumatic. EYES: Normal conjunctiva. Sclera non-icteric. NECK: Supple. No nuchal rigidity. RESPIRATORY: Clear to auscultation.Normal respiratory effort. CARDIAC: Normal rate. Normal rhythm. Extremities warm and well perfused. GI: Soft, non-distended. Moderate epigastric tenderness RECTAL: Deferred. MUSCULOSKELETAL: Atraumatic. Chest examination reveals no tenderness. LOWER EXTREMITIES: Calves are equal size bilaterally and non-tender. No edema NEURO: Normal sensorium. No sensory or motor deficits noted. No facial droop. SKIN: Warm and dry. No rash or jaundice noted. Course 174: Past medical records reviewed. The patient was evaluated in room B04B, and a complete history and physical examination were performed. 1928: Updated patient on results. Discussed plan for admission to which patient is agreeable. 1944: Discussed patient case with Dr. Giordano, who will accept patient for admission. Administered Medications Discontinued Medications Hydromorphone HCl (Dilaudid) 1 mg IV NOW STA Stop: 10/11/18 17:41 Last Admin: 10/11/18 18:14 Dose: 1 mg Documented by: [id number] Hydromorphone HCl (Dilaudid) 1 mg IV NOW STA Stop: 10/11/18 18:51 Last Admin: 10/11/18 19:10 Dose: 1 mg Documented by: [id number] Pantoprazole Sodium 40 mg/ (Syringe) 10 mls @ 5 mls/min IV NOW ONE Stop: 10/11/18 18:51 Last Admin: 10/11/18 19:13 Dose: 5 mls/min Documented by: [id number] Sodium Chloride (Nss 1000ml) 1,000 mls @ 999 mls/hr IV .Q1H1M ONE Stop: 10/11/18 19:50 Last Infusion: 10/11/18 20:08 Dose: 0 mls/hr Documented by: [id number] Admin: 10/11/18 19:10 Dose: 999 mls/hr Documented by: [id number] Ketorolac Tromethamine (Toradol) 15 mg IV NOW STA Stop: 10/11/18 17:42 Last Admin: 10/11/18 18:13 Dose: 15 mg Documented by: [id number] Ondansetron HCl (Zofran) 4 mg IV NOW STA Stop: 10/11/18 17:41 Last Admin: 10/11/18 18:13 Dose: 4 mg Documented by: [id number] Ondansetron HCl (Zofran) 4 mg IV NOW STA Stop: 10/11/18 18:51 Last Admin: 10/11/18 19:10 Dose: 4 mg Documented by: [id number] Medical Decision Making Differential Diagnosis Differential diagnosis: Etiologies such as appendicitis, diverticulitis, PUD, biliary pathology, UTI, pancreatitis, obstruction, mesenteric ischemia, aortic pathology, infections, inflammatory bowel disease, renal colic, as well as others were entertained. Medical Records Attestation: I reviewed the patient's medical records. Home Medications Current Medication List: was personally reviewed by me Laboratory Data Attestation: I reviewed the patient's lab results. Result diagrams: 10/11/18 18:10 10/11/18 18:10 Lab Results 10/11/18 10/11/18 10/11/18 Range/Units 18:10 18:10 18:50 WBC 9.49 (4.8-10.8) K/uL RBC 4.76 (4.2-5.4) M/uL Hgb 15.2 (12.0-16.0) g/dL Hct 46.0 (37-47) % MCV 96.6 (80-100) fL MCH 31.9 (25-34) pg MCHC 33.0 (32-36) g/dL RDW Std Deviation 46.8 H (36.4-46.3) fL RDW Coeff of Estrellita 13.2 (11.5-14.5) % Plt Count 433 H (130-400) K/uL MPV 9.7 (7.4-10.4) fL Immature Gran % (Auto) 0.2 % Neut % (Auto) 78.4 % Lymph % (Auto) 13.7 % Cherry % (Auto) 6.3 % Eos % (Auto) 0.6 % Baso % (Auto) 0.8 % Immature Gran # (Auto) 0.02 (0.00-0.02) K/uL Neut # (Auto) 7.43 H (1.4-6.5) K/uL Lymph # (Auto) 1.30 (1.2-3.4) K/uL Cherry # (Auto) 0.60 H (0.11-0.59) K/uL Eos # (Auto) 0.06 (0-0.5) K/uL Baso # (Auto) 0.08 (0-0.2) K/uL Sodium 139 (136-145) mmol/L Potassium 3.9 (3.5-5.1) mmol/L Chloride 103 (98-107) mmol/L Carbon Dioxide 28 (21-32) mmol/L Anion Gap 8.0 (3-11) BUN 11 (7-18) mg/dl Creatinine 0.62 (0.6-1.2) mg/dl Est Cr Clr Drug Dosing 67.7 ml/min Est GFR ( Amer) 99.4 Est GFR (Non-Af Amer) 85.8 BUN/Creatinine Ratio 17.9 (10-20) Glucose 109 H (70-99) mg/dl Calcium 9.4 (8.5-10.1) mg/dl Total Bilirubin 0.5 (0.2-1) mg/dl AST 27 (15-37) U/L ALT 32 (12-78) U/L Alkaline Phosphatase 60 (45-117) U/L Troponin I < 0.015 (0-0.045) ng/ml Total Protein 8.0 (6.4-8.2) gm/dl Albumin 3.9 (3.4-5.0) gm/dl Globulin 4.1 H (2.5-4.0) gm/dl Albumin/Globulin Ratio 1.0 (0.9-2) Lipase 09452 H (73-393) U/L Specimen Hemolysis Urine Color Yellow Urine Appearance Turbid H (Clear) Urine pH >= 9.0 H (4.5-7.5) Ur Specific [place] 1.020 (1.000-1.030) Urine Protein 1+ H (Negative) Urine Glucose (UA) Negative (Negative) Urine Ketones 3+ H (Negative) Urine Blood Negative (Negative) Urine Nitrite Negative (Negative) Urine Bilirubin Negative (Negative) Urine Urobilinogen Negative (Negative) Ur Leukocyte Esterase Negative (Negative) Urine WBC (Auto) 1-5 (0-5) /hpf Urine RBC (Auto) 10-30 H (0-4) /hpf U Hyaline Cast (Auto) 1-5 (0-5) /lpf U Epithel Cells (Auto) >30 H (0-5) /lpf Urine Bacteria (Auto) Negative (Negative) ECG Data Attestation: I personally reviewed and interpreted this ECG as follows: Indication: abdominal pain Rate (beats per minute): 85 Rhythm: normal sinus Findings: + other (normal axis); no PVC, no ST depression and no ST elevation Blood Pressure Blood Pressure Findings: Elevated blood pressure Blood Pressure Disposition: elevated BP felt to be situational MDM Narrative 78-year-old female with a history of recurrent pancreatitis last about 10 days ago presents today complaining of sudden onset this afternoon of severe epigastric pain consistent with prior. No hematemesis or bloody stools reported. Pain is exactly same as previous. She is unsure of etiology. Some mild epigastric tenderness. EKG and troponin completed negative for signs of acute AK. Doubt this is ACS or PE. Seems consistent with recurrent pancreatitis and lipase is significantly elevated. No evidence of other hepatic dysfunction of significance. No significant leukocytosis just had a recent CT scan and will defer repeating at this time. Attempted antiemetic and pain control here with minimal improvement. Given her difficulty with fluid intake and pain control discussed with the hospitalist for admission. Impression & Plan Pancreatitis Discharge Plan Visit Data *Final* Discharge Date/Time: 10/11/18 20:24 Chief Complaint: GI Assessment Stated Complaint: PANCREATITIS, VOMITING, PAIN ED Provider: Noe Mccain Discharge Problem: Pancreatitis Patient Disposition: Admitted As Inpatient Discharge Instructions Interventions: ED Discharge Assessment Last Done: 10/11/18 20:24 The scribe's documentation has been prepared under my direction and personally reviewed by me in its entirety. I confirm that the note above accurately reflects all work, treatment, procedures, and medical decision making performed by me.
[2018-10-11] MEDS: D5W AND LACTATED RINGERS 1,000 ML IV SCH (22:03)
[2018-10-11] MEDS: HYDROmorphone INJ 0.5 MG/0.5 ML SYR IV PRN (23:33)
[2018-10-11] MEDS: ONDANSETRON INJ 2 MG/ML 2 ML VIAL IV PRN (23:40)
[2018-10-12] MEDS: HYDROmorphone INJ 0.5 MG/0.5 ML SYR IV PRN ×2 (04:18→08:24)
[2018-10-12] MEDS: D5W AND LACTATED RINGERS 1,000 ML IV SCH (05:02)
[2018-10-12] MEDS: ONDANSETRON INJ 2 MG/ML 2 ML VIAL IV PRN (05:48)
[2018-10-12] MEDS: LEVOTHYROXINE SODIUM 88 MCG TABLET PO SCH (05:54)
[2018-10-12] MEDS ORDERED: PROMETHAZINE HCL 12.5 MG in SODIUM CHLORIDE 0.9% 50 ML IV PRN (08:29)
--- NOTE | 2018-10-12 09:51 | Magnetic Resonance Report ---
MR MRCP CLINICAL HISTORY: Pancreatitis. Evaluate for choledocholithiasis. COMPARISON STUDY: Noncontrast CT scan of the abdomen and pelvis performed October 03, 2018, MRCP pe rformed July 29, 2018 FINDINGS: Imaging was coronal and axial planes. MIP imaging was performed. There is a large hiatal hernia. There is elevation/eventration right hemidiaphragm. There is 11 mm T2 bright lesion within the left hepatic lobe anteriorly likely representing a cyst. No gallstones are visualized. There are bilateral parapelvic renal cysts. There is no intra or extrahepatic biliary ductal dilatation. No common bile duct calculi are visualiz ed. There is no pancreatic ductal dilatation. There is infiltration the fat surrounding the pancreatic tail consistent with pancreatitis. IMPRESSION: 1. No evidence of intra or extrahepatic biliary ductal dilatation. No common bile duct filling defect s identified 2. No gallstones identified 3. Infiltration the fat surrounding the pancreatic tail consistent with pancreatitis 4. No evidence of pancreatic ductal dilatation 5. Large hiatal hernia Electronically signed by: Jun Francis M.D. 10/12/2018 9:49 AM
--- NOTE | 2018-10-12 09:59 | Gastrointestinal Consultation ---
Date of Consultation October 12, 2018 Assessment & Plan (1) Pancreatitis: 1. LR at 250/hr. 2. Had normal US and CT (except pancreatitis) last week thus would not repeat. 3. MRCP (most recent was July 2018). If abnormal then would consider ERCP next week. 4. Recheck LFTs, lipase tomorrow. 5. Autoimmune studies were negative during prior w/u thus would defer. 6. Sips of clear liquids only today. Present on Admission?: Yes Supervising Physician Co-Signing Physician Notes I have seen and examined the patient and discussed the management with LEYDI Bailey. 78 yo fm with a history of htn - not on meds, was taking herbal supplemental until recent visit with Dr. Lindsey, lyme disease on doxycycline in the past, now admitted with abdominal and lipase elevation concerning for acute pancreatitis. She is followed by Dr. Lindsey from GI in the clinic. She has had 2 prior episodes of pancreatitis (? first episode related to doxycyline, 2nd episode with MRCP findings in 07/31 at [facility] showing body-tail pancreatic duct dilation) Prior workup including IgG4 levels were normal, though BRITTA + in the past, prior eus in 05/[address] Lindsey showing sludge in gb, was taking herbal supplements in the past that Dr. Lindsey recommended recently stopping, denies being on lasix, remote history of being on doxycycline which can cause pancreatitis. She denies etoh, recent new medications, or current herbal supplements as a source of her acute pancreatitis, mrcp negative for pd or cbd dilation, findings of ?sludge. Given her history and normal lft's, the differential does include drugs/microsludge causing her symptoms. She may consider a cholecystectomy given this is her 3rd bout of pancreatitis without a real identifiable symptomatology other than sludge on prior imaging. Agree with further mgmt of acute pancreatitis per Jimena's note - IV fluids, sips of liquid- advance as tolerated though slowly. No current indication for eus/ercp- last eus in 05/01 with findings of 5 mm pancreatic head cyst, no mention of pd duct dilation, gb sludge. She has further outpatient follow-up with Dr. Lindsey mid 10/30. She is on Creon though not clear to me the exact indication why as she does not appear to have chronic pancreatitis or signs of exocrine pancreatic insufficiency. History of Present Illness Reason for Consultation: recurrent pancreatitis Requesting Physician: Dr. Rao Attending Physician: Antonio Rao History of Present Illness Ms. Yesy Vidales is a 78 yr old female with a hx of hypothyroidism, HTN, large HH who presented to the ED yesterday for epigastric pain. She is well known to our group as she has had several episodes of idiopathic acute pancreatitis, most recently being discharged from [facility] last week. She follows with Dr. Lindsey and has an appt with him next week. Yesterday, she felt well in the morning, but by 3PM, she began with epigastric pain radiating to the back as well as nausea. The pain built to severe over the next 3 hrs and she presented to the ED. At the time of arrival, Lipase was 489 but this morning it is 16, 767. Though imaging was not completed, a CT scan last week was consistent with acute pancreatitis w/o pseudocysts or necrosis. Her LFTs are normal. [facility] imaging consistently shown a normal gallbladder, w/o stones. Prior MRCP in July did suggest a non specific pancreatic duct abnormality in the body/tail but w/o stones. Allergies Allergy/AdvReac Type Severity Reaction Status Date / Time morphine Allergy Intermediate RASH Verified 10/11/18 18:40 Iodinated Contrast- Oral and Allergy Unknown RASH Verified 10/11/18 18:40 IV Dye latex Allergy Unknown HIVES Verified 10/11/18 18:40 Home Medications Home Medications Medication Instructions Recorded Confirmed Type Creon 3 cap PO TID 07/29/18 10/11/18 History Restasis 1 drp OPHTHALMIC (EYE) Q12H 07/29/18 10/11/18 History epinephrine [EpiPen] 0.3 mg IM UD PRN 07/29/18 10/11/18 History levothyroxine [Synthroid] 88 mcg PO QAM 07/29/18 10/11/18 History melatonin 3 mg PO HS PRN 07/29/18 10/11/18 History Patient History Medical History Hypertension Microscopic hematuria Hypothyroidism Recurrent pancreatitis Hiatal hernia (Acute) Lyme disease Surgical History S/P bunionectomy right foot X 2 S/P tonsillectomy and adenoidectomy age 14 years Family History Other No significant family history Social History Preferred Language: Senegalese Communication Ability: Effective 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 Eyes: no vision changes, no eye redness or pain Respiratory: No SOB, no cough Cardiovascular: No irregular heartbeats or chest pain Abdomen: Epigastric pain, one episode of vomiting early this morning, continues with nausea Ext: No edema Hem: No excessive bruising/bleeding Physical Exam Vital Signs (Past 24 Hours): Last Vital Signs Temp 36.5 C 10/12/18 06:22 Pulse 82 10/12/18 06:22 Resp 18 10/12/18 06:22 BP 174/90 H 10/12/18 06:22 Pulse Ox 94 10/12/18 06:22 Constitutional: WD/WN, vitals as above sitting up on the side of bed. Conversational, pleasant. Tells me the pain is much better than last night. Eyes: PERRL, conjunctivae normal, anicteric sclerae Neck: trachea midline, no thyromegaly Respiratory: few crackes in each base, no wheezes, no iincreased respiratory effort Cardiovascular: RRR, no murmur, no edema Gastrointestinal (Abdomen): Percussion/Palpation: + abdomen tender (mildly tender in the epigastric area) and abdomen soft; no hepatomegaly, no abdominal mass and no ascites Skin: no rashes, warm and dry normal turgor no jaundice Neurologic: PERRL, EOMI, accommodation nl, no face palsy, no dysarthria Psychiatric: A+Ox3, euthymic affect Lymphatic: no cervical or axillary lymphadenopathy Results & Data Laboratory Results Lipase 16, 767. LFTs normal. WBC normal today Diagnostic Findings CT 10/08/18 1. Fluid and fat infiltration surrounding the distal pancreatic body and tail consistent with acute pancreatitis 2. Large hiatal hernia. Mildly distended and fluid-filled stomach and hiatal hernia. 3. No evidence of bowel obstruction. No evidence of free air 4. Diverticulosis. No evidence of acute diverticulitis 5. Normal appendix Medications Administered LR 150/hr increased to 250/hr, analgesics and antiemetics (1) Pancreatitis Chronicity: chronic Pancreatitis type: unspecified pancreatitis type Qualified Code(s): K86.1 - Other chronic pancreatitis
[2018-10-12] MEDS ORDERED: MoRPHine SULFATE 4 MG/ML 1 ML CARP\\VIAL IV STA (16:33)
[2018-10-13] MEDS: LEVOTHYROXINE SODIUM 88 MCG TABLET PO SCH (05:30)
--- NOTE | 2018-10-13 13:12 | Hospitalist Progress Note ---
Date of Service October 12, 2018 Assessment & Plan (1) Pancreatitis: 78 y/o F Hx hypothyroid, recurrent pancreatitis of undetermined etiology. She had been admitted twice over the past two months for pancreatitis. She returned to the ER a few days ago and was DCd after receiving some IVF and pain meds. She returns with worsening pain. Initial labs demonstrate an acute lipase elevation and are otherwise unremarkable. 1) Pancreatitis - IVF, pain control, NPO - Creon held while she is NPO - we naty consult [facility] gastroeneterologist as her admissions are becoming more frequent. Apparently there was some discussion reg a cholecystectomy as it was postulated that her recurrent episodes may be due to sludge and biliary stasis. This would certainly be preferable to a pancreatectomy at her age, although, if her episodes continue to increase in infrequency, this would likely have to be entertained. Plan today was to do MRCP, depending on this will consider ERCP. However MRCP was negative. Patient placed on clear liquid will continue to monitor. Will check her lipase in AM. Unsure as to why she is getting recurrent pancreatitis. 2) Hypothyroid - cont Synthroid 3) She tends to become hypertensive while hospitalized, although she does not carry this diagnosis. Pain meds and ativan seem to help. Continue to be hypertensive. Will monitor. Full code - SCDs due to blood in vomit Spent 25 minutes in management of patient. Subjective 78 yo female reports feeling better today. She reports her pain is mild and she is tolerating her clear liquid diet. Patient denies vomiting. Patient is still complaining of nausea. Physical Exam Vital Signs (Past 24 Hours): Last Vital Signs Temp 36.6 C 10/12/18 14:50 Pulse 80 10/12/18 14:50 Resp 18 10/12/18 14:50 BP 160/82 H 10/12/18 14:50 Pulse Ox 95 10/12/18 14:50 Physical Exam: General: AAO x 3, no distress ENT: No erythema or exudates, no thrush Eyes: LIN, EOMI Head and neck: Normocephalic, atraumatic, No JVD, neck is supple. Chest/heart: Nontender, S1,2, RRR, no murmurs, no gallops Lungs: CTAB, no wheezing or crackles Abdomen: non distended, soft, mild tenderness. Neuro: AAO x 3, speech is clear, no unilateral weakness or loss of sensation, coordination intact Musculoskeletal: No joint inflammation, muscle tenderness, FROM Skin: No acute rashes or ulcers Extremities: No clubbing, cyanosis, edema (1) Pancreatitis Chronicity: chronic Pancreatitis type: unspecified pancreatitis type Qualified Code(s): K86.1 - Other chronic pancreatitis
--- NOTE | 2018-10-21 09:17 | Discharge Summary ---
Date of Service October 13, 2018 Admission HPI Per Admitting Provider Chief Complaint: 78 y/o F Hx hypothyroid, recurrent pancreatitis of undetermined etiology. She had been admitted twice over the past two months for pancreatitis. She returned to the ER a few days ago and was DCd after receiving some IVF and pain meds. She returns with worsening pain, nausea and vomiting. She describes some blood streaks in her vomitus. Initial labs demonstrate an acute lipase elevation and are otherwise unremarkable. PMH: 1) Recurrent, idiopathic pancreatitis with pancreatic insufficiency 2) Hypothyroid 3) Hiatal hernia Family: Mother due to complications of COPD Father due to CAD/AK Social: No history of smoking or alcohol use Principal Diagnosis Acute pancreatitis Discharge Exam General: AAO x 3, no distress ENT: No erythema or exudates, no thrush Eyes: LIN, EOMI Head and neck: Normocephalic, atraumatic, No JVD, neck is supple. Chest/heart: Nontender, S1,2, RRR, no murmurs, no gallops Lungs: CTAB, no wheezing or crackles Abdomen: non distended, soft, nontender Neuro: AAO x 3, speech is clear, no unilateral weakness or loss of sensation, coordination intact Musculoskeletal: No joint inflammation, muscle tenderness, FROM Skin: No acute rashes or ulcers Extremities: No clubbing, cyanosis, edema Discharge Data Allergies Allergy/AdvReac Type Severity Reaction Status Date / Time morphine Allergy Intermediate RASH Verified 10/11/18 18:40 Iodinated Contrast- Oral and Allergy Unknown RASH Verified 10/11/18 18:40 IV Dye latex Allergy Unknown HIVES Verified 10/11/18 18:40 Consultations 10/11/18 19:34 ED Decision to Admit Stat 10/11/18 20:54 Consult Gastroenterology Routine Ordered Studies 10/12/18 08:39 MR MRCP Urgent Hospital Course (1) Pancreatitis: 78 y/o F Hx hypothyroid, recurrent pancreatitis of undetermined etiology. She had been admitted twice over the past two months for pancreatitis. She returned to the ER a few days ago and was DCd after receiving some IVF and pain meds. She returns with worsening pain. Initial labs demonstrate an acute lipase elevation and are otherwise unremarkable. 1) Pancreatitis - IVF, pain control, NPO - Creon held while she is NPO - we naty consult [facility] gastroeneterologist as her admissions are becoming more frequent. Apparently there was some discussion reg a cholecystectomy as it was postulated that her recurrent episodes may be due to sludge and biliary stasis. This would certainly be preferable to a pancreatectomy at her age, although, if her episodes continue to increase in infrequency, this would likely have to be entertained. MRCP was negative. Patient placed on clear liquid and advanced as tolerated. lipase improved. Unsure as to why she is getting recurrent pancreatitis. Patient will f/u with gadtro as outpatient. 2) Hypothyroid - cont Synthroid 3) She tends to become hypertensive while hospitalized, although she does not carry this diagnosis. Pain meds and ativan seem to help. Continue to be hypertensive. Will defer to PCP Full code - SCDs due to blood in vomit Total Time Total Time Spent Total Time Spent (In Minutes): 31 Total Time Includes: Examination of the Patient, Discharge Planning and Medication Reconciliation Discharge Plan Discharge Items Patient Disposition: Home - Self-Care Reason For Visit: PANCREATITIS Discharge Diagnosis: Acute recurrent pancreatitis Discharge Goals: Decrease discomfort Activity: Resume your previous activity Non-emergency contact: Primary Care Provider Call non-emergency contact if: you have any medication questions Follow-up/Referrals: Rob Mayers MD [Primary Care Provider] - Diet: Full liquid Addtl Provider Instructions: Followup with Dr. Lindsye as an outpatient. Prescriptions: Continued melatonin 3 mg Tablet 3 mg PO HS PRN (Reason: Sleep) RF: 0 levothyroxine [Synthroid] 88 mcg Tablet 88 mcg PO QAM RF: 0 epinephrine [EpiPen] 0.3 mg/0.3 mL Auto-Injector 0.3 mg IM UD PRN (Reason: Allergic Reaction) RF: 0 Restasis 0.05 % Dropperette 1 drp OPHTHALMIC (EYE) Q12H RF: 0 Creon 12,000-38,000 -60,000 unit Capsule,Delayed Release(Dr/Ec) 3 cap PO TID RF: 0 Stand-Alone Forms: [facility] Discharge Orders: Discharge Order (Routine); Ordered 10/13/18 Ordered By: Antonio Rao Admission Data Admit Date/Time: 10/11/18 19:56 Attending Provider: Antonio Rao Admit Provider: Gilbert Goetz Primary Care Provider: Rob Mayers Other Providers: Betsey Mckeon Service: Medical Other Interventions: Discharge Summary Assessment (RN) Last Done: 10/13/18 13:32 DC Date/Time DO NOT enter until pt leaves facility: 10/13/18 13:50
== END 2018-10-13 13:50 | disposition home or self-care (01) | DRG 439 ==
LOC: ED 17:35 → SUATTDRO 19:56 → 4W 19:56

== ENCOUNTER 2019-03-13 17:12 | Inpatient (IN) ==
[2019-03-13] MEDS ORDERED: MoRPHine SULFATE 4 MG/ML 1 ML CARP\\VIAL IV STA (17:29)
[2019-03-13] MEDS ORDERED: ONDANSETRON INJ 2 MG/ML 2 ML VIAL IV STA (17:29)
[2019-03-13] MEDS ORDERED: SODIUM CHLORIDE 0.9% 500 ML IV SCH (17:30)
[2019-03-13 17:47] LABS: Basophils # (auto) 0.05 K/uL (0-0.2); Basophils % (auto) 0.6 %; Eosinophils # (auto) 0.06 K/uL (0-0.5); Eosinophils % (auto) 0.8 %; Hematocrit (blood only) 45.5 % (37-47); Hemoglobin 15.4 g/dL (12.0-16.0); Immature Granulocytes # (auto) 0.02 K/uL (0.00-0.02); Immature Granulocytes % (auto) 0.3 %; Lymphocytes # (auto) 1.26 K/uL (1.2-3.4); Lymphocytes % (auto) 16.4 %; Mean Corpuscular Hgb Conc 33.8 g/dL (32-36); Mean Corpuscular Volume 96.2 fL (80-100); Mean Platelet Volume 9.5 fL (7.4-10.4); Monocytes # (auto) 0.58 K/uL (0.11-0.59); Monocytes % (auto) 7.5 %; Neutrophils # (auto) 5.73 K/uL (1.4-6.5); Neutrophils % (auto) 74.4 %; Platelet Count 346 K/uL (130-400); RDW Coefficient of Variation 13.3 % (11.5-14.5); RDW Standard Deviation 47.3 fL (36.4-46.3); Red Blood Count 4.73 M/uL (4.2-5.4)
[2019-03-13 18:06] LABS: Alanine Aminotransferase 31 U/L (12-78); Albumin Level 3.9 gm/dl (3.4-5.0); Alkaline Phosphatase 72 U/L (45-117); BUN Creatinine Ratio 23.6 (10-20); Bilirubin,Total 0.6 mg/dl (0.2-1); Blood Urea Nitrogen 17 mg/dl (7-18); Calcium 9.4 mg/dl (8.5-10.1); Carbon Dioxide 30 mmol/L (21-32); Chloride 105 mmol/L (98-107); Est GFR (African American) 93.2; Est GFR (Non-African American) 80.4; Globulin 3.9 gm/dl (2.5-4.0); Glucose 121 mg/dl (70-99); Total Protein 7.8 gm/dl (6.4-8.2)
[2019-03-13 18:13] LABS: Potassium 3.9 mmol/L (3.5-5.1); Sodium 143 mmol/L (136-145)
[2019-03-13] MEDS ORDERED: HYDROmorphone INJ 0.5 MG/0.5 ML SYR IV STA (18:13)
[2019-03-13 18:19] LABS: Aspartate Aminotransferase 18 U/L (15-37)
[2019-03-13] MEDS ORDERED: fentaNYL citrate 100 MCG/2 ML VIAL IV STA (18:46)
--- NOTE | 2019-03-13 19:11 | History & Physical Report ---
Date of Service March 13, 2019 Assessment & Plan (1) Acute pancreatitis: N.p.o. IV fluids. Parenteral narcotics and antiemetics as needed. Consult gastroenterology. Strongly consider laparoscopic cholecystectomy when acute pancreatitis resolves. Present on Admission?: Yes (2) Poorly-controlled hypertension: Telemetry. Hydralazine IV as needed Present on Admission?: Yes (3) Hypothyroidism: Resume oral replacement when taking p.o. Present on Admission?: Yes (4) DVT prophylaxis: Lovenox subcu History of Present Illness Chief Complaint: Epigastric pain nausea and vomiting Primary Care Provider: Rob Mayers MD 79-year-old female with recurrent episodes of pancreatitis. She was doing well until today around 1 PM when she developed acute onset of epigastric pain followed by nausea and vomiting. She has had multiple previous episodes of pancreatitis with similar symptoms. Lipase is 15,000. She is not a drinker and does not have hypertriglyceridemia. She should strongly consider cholecystectomy to hopefully prevent further recurrences although this is no guarantee. She will be kept n.p.o. and and administered IV fluids. Gastroenterology consult will be requested. She has uncontrolled hypertension and will be treated with intravenous hydralazine on an as-needed basis. Allergies Allergy/AdvReac Type Severity Reaction Status Date / Time Iodinated Contrast- Oral and Allergy Unknown RASH Verified 10/11/18 18:40 IV Dye latex Allergy Unknown HIVES Verified 10/11/18 18:40 bee venom protein (honey bee) Allergy Unknown Verified 03/13/19 17:38 Home Medications Home Medications Medication Instructions Recorded Confirmed Type Restasis 1 drp OPHTHALMIC (EYE) Q12H 07/29/18 03/13/19 History epinephrine [EpiPen] 0.3 mg IM UD PRN 07/29/18 03/13/19 History levothyroxine [Synthroid] 88 mcg PO QAM 07/29/18 03/13/19 History melatonin 3 mg PO HS PRN 07/29/18 03/13/19 History cyanocobalamin (vit B-12) ER 1,000 1 mcg PO QAM tab 02/27/19 03/13/19 History mcg tablet,extended release ketotifen 0.025 % (0.035 %) eye 1 drp OPB UD PRN ml 02/27/19 03/13/19 History drops Azo Cranberry 1 tab PO QAM 03/13/19 03/13/19 History garlic 500 mg PO QAM 03/13/19 03/13/19 History multivitamin with minerals 1 tab PO QAM 03/13/19 03/13/19 History Past Med/Surg History Medical History Hypertension Microscopic hematuria Hypothyroidism Recurrent pancreatitis Hiatal hernia (Acute) Lyme disease Surgical History S/P bunionectomy right foot X 2 S/P tonsillectomy and adenoidectomy age 14 years Family History Mother Emphysema lung Father Myocardial infarction Other No significant family history Social History Preferred Language: Bahraini Communication Ability: Effective Beliefs That Will Affect Care: None Current Living Situation: Spouse Feels Safe at Home: Yes Smoking Status: Never smoker Hx Alcohol Use: No Hx Substance Use: No Review of Systems Review of Systems: Constitutional-no fever or chills ENT-no blurred vision, no double vision, no epistaxis, no sore throat Respiratory-no cough, no wheezing, no shortness of breath Cardiac-no palpitations, no chest pain, no syncope GI-epigastric pain, nausea, vomiting. No melena hematemesis or hematochezia -no urinary retention, no urinary incontinence, no dysuria, no hematuria Musculoskeletal-no joint pain, no muscle tenderness Skin-no bruising, no rashes, no pruritus Neuro-no isolated weakness, no paresthesia, no weakness Psych-no depression, no anxiety Physical Exam Physical Exam: General-alert and oriented x3, no fevers, no chills HEENT-head atraumatic and normocephalic, TMs intact bilaterally, pupils equal and reactive to light, extraocular muscles intact Neck-no lymphadenopathy or thyromegaly, trachea midline Chest-clear to auscultation percussion. No rales wheezing or rhonchi Cardiac-regular rate and rhythm, normal S1 and S2, no murmurs Abdomen-nondistended. Bowel sounds are hypoactive but present. Epigastric tenderness. No overt rebound or guarding Extremities-no cyanosis, clubbing, or edema Neuro-cranial nerves II through XII intact, motor and sensory function within normal limits, strength symmetrical , no focal deficits Psych-normal affect, normal mood Results & Data Vital Signs (Past 12 Hours) Vital Signs Temp Pulse Resp BP Pulse Ox 03/13/19 17:42 77 18 98 03/13/19 17:16 36.7 C 75 20 214/105 H 95 Laboratory Results 03/13/19 17:30 03/13/19 17:30 PG Care Time/CCT Total # of Minutes Spent Total Time Spent with Patient: Total time spent is greater than 50% in coordination of care (as documented) at patient's floor/unit and/or counseling patient: (1) Acute pancreatitis Acute pancreatitis complication: unspecified Pancreatitis type: unspecified pancreatitis type Qualified Code(s): K85.90 - Acute pancreatitis without necrosis or infection, unspecified
--- NOTE | 2019-03-13 19:58 | CT Scan Report ---
CT SCAN OF THE ABDOMEN AND PELVIS WITHOUT IV CONTRAST CLINICAL HISTORY: Epigastric abdominal pain. Pancreatitis. COMPARISON STUDY: Abdominal CT dated 10/03/2018. TECHNIQUE: CT scan of the abdomen and pelvis is performed from the lung bases to the proximal femora. Images are reviewed in the axial, sagittal, and coronal planes. IV contrast was not administered for this examination as per the referring clinician. Note that the examination was performed in suboptim al fashion without oral and IV contrast. A dose lowering technique was utilized adhering to the [facility]. CT DOSE: 489.52 mGy.cm FINDINGS: Lung bases: The heart is normal in size and without pericardial effusion. The coronary arteries are d ensely calcified. There is a large calcified granuloma in the left lower lobe. Scarring/atelectasis i s noted at both lung bases. No airspace consolidation or pleural effusion is identified. Liver: The unenhanced liver is normal in size, contour, and attenuation. There is no intrahepatic xin iary ductal dilatation. Gallbladder: Unremarkable. Spleen: Normal in size and attenuation. There are calcified splenic granulomas. Pancreas: The unenhanced pancreas is mildly atrophic. The duct is normal in caliber. There is inflamm atory change and fluid seen around the pancreatic tail and the spleen. No organized fluid collection is suggested on this unenhanced examination. Adrenal glands: Unremarkable. Kidneys: The unenhanced kidneys are normal in size and without hydronephrosis. Parapelvic cysts are n oted bilaterally. There are punctate nonobstructing left renal calculi. No right renal calculi are id entified. There is no evidence of contour deforming renal mass lesion. Abdominal vasculature: The abdominal aorta is normal in course and caliber noting mild to moderate at herosclerotic calcification. Stomach and bowel: There is a large hiatal hernia, with over half of the stomach located in the thora cic cavity. The duodenum is normal in configuration. There is moderate colonic diverticulosis without CT evidence of acute diverticulitis. The colon is redundant. No bowel obstruction is seen. The appen catarino is well-visualized and normal. Peritoneum: There is no intraperitoneal free air or abdominal ascites. There is a fat-containing umbi lical hernia. Lymphadenopathy: None. Pelvic viscera: The bladder is normal as imaged. There are calcified uterine fibroids. No adnexal les ion is seen. Skeletal structures: The skeletal structures are osteopenic. There is moderate lumbosacral spondylosi s. Arthritic changes seen in the hips. Hemangiomas are noted in the bodies of T8, T12, and L2. No lyt ic or blastic lesions are seen. IMPRESSION: 1. Significantly suboptimal examination without oral and IV contrast 2. There is inflammatory stranding seen around the pancreatic tail, with fluid around the pancreatic tail and the spleen. This likely corresponds to the reported history of acute pancreatitis. 3. There is no evidence of organized fluid collection on this unenhanced examination. 4. Large hiatal hernia. 5. Mild colonic diverticulosis without CT evidence of acute diverticulitis. 6. Left-sided nephrolithiasis. 7. Fibroid uterus. 8. Additional findings as above. Electronically signed by: Moses Garsia M.D. 03/13/2019 7:57 PM
[2019-03-13 20:03] LABS: Appearance Urine Turbid (Clear); Bacteria Urine Automated Negative (Negative); Bilirubin Urine Negative (Negative); Blood Urine Negative (Negative); Color Urine Yellow; Epithelial Cell Urine Auto >30 /lpf (0-5); Glucose Urine UA Negative (Negative); Ketones Urine Trace (Negative); Leukocyte Esterase Urine Negative (Negative); Nitrite Urine Negative (Negative); Protein Urine Negative (Negative); RBC Urine Automated >30 /hpf (0-4); Specific Gravity Urine 1.018 (1.000-1.030); Urobilinogen Urine Negative (Negative)
--- NOTE | 2019-03-13 20:03 | Emergency Department Note ---
Entered by Tab Henry acting as a scribe for Ziggy Hernandez MD History of Present Illness General Chief complaint: Vomiting Stated complaint: VOMITING Time Seen by Provider: 03/13/19 17:22 Source: patient History of Present Illness Onset (ago): hour(s) 4 Location: abdomen (left) Radiation: back and extremity (shoulders) Severity: similar to prior episodes Pain Consistency: + other (episode) Maximum Pain Intensity: 10 Quality: + sharp Exacerbated By: + eating Associated symptoms: + nausea/vomiting and + other (-black/bloody stool; -diarrhea); no chest pain, no fever/chills and no shortness of breath The patient is an 79 year old female who presents to the Emergency Room with complaints of an episode of sharp, left abdominal pain that began 4 hours ago. The patient reports the pain radiates to her back and shoulders. The patient states these symptoms are similar to her previous episodes of pancreatitis. The patient notes that eating today made her symptoms worse. The patient also reports she had 2 episodes of vomiting today. The patient denies a fever, black/bloody stool, diarrhea, chest pain, or shortness of breath. The patient denies drinking alcohol. The patient notes she is not allergic to morphine and, she reports that it helped her during her previous episode of pancreatitis. The patient also notes she was recently evaluated at [facility] possible cholecystectomy in the future. Home Medications Home Medications Medication Instructions Recorded Confirmed Type Restasis 1 drp OPHTHALMIC (EYE) Q12H 07/29/18 03/13/19 History epinephrine [EpiPen] 0.3 mg IM UD PRN 07/29/18 03/13/19 History levothyroxine [Synthroid] 88 mcg PO QAM 07/29/18 03/13/19 History melatonin 3 mg PO HS PRN 07/29/18 03/13/19 History cyanocobalamin (vit B-12) ER 1,000 1 mcg PO QAM tab 02/27/19 03/13/19 History mcg tablet,extended release ketotifen 0.025 % (0.035 %) eye 1 drp OPB UD PRN ml 02/27/19 03/13/19 History drops Azo Cranberry 1 tab PO QAM 03/13/19 03/13/19 History garlic 500 mg PO QAM 03/13/19 03/13/19 History multivitamin with minerals 1 tab PO QAM 03/13/19 03/13/19 History Allergies Allergy/AdvReac Type Severity Reaction Status Date / Time Iodinated Contrast- Oral and Allergy Unknown RASH Verified 10/11/18 18:40 IV Dye latex Allergy Unknown HIVES Verified 10/11/18 18:40 bee venom protein (honey bee) Allergy Unknown Verified 03/13/19 17:38 Past Med/Surg History Medical History Acute pancreatitis (Acute) Hypertension Microscopic hematuria Hypothyroidism (Chronic) Recurrent pancreatitis Hiatal hernia (Acute) Lyme disease Surgical History S/P bunionectomy right foot X 2 S/P tonsillectomy and adenoidectomy age 14 years Family History Mother Emphysema lung Father Myocardial infarction Other No significant family history Social History Preferred Language: Gabonese Communication Ability: Effective Beliefs That Will Affect Care: None Current Living Situation: Spouse Feels Safe at Home: Yes Smoking Status: Never smoker Hx Alcohol Use: No Hx Substance Use: No Review of Systems See HPI for pertinent positives & negatives. and A total of 10 systems reviewed and were otherwise negative Physical Exam Vital Signs Vital Signs - 24 hr 03/13/19 17:16 03/13/19 17:42 03/13/19 19:12 Temperature 36.7 C Temperature Source Oral Sepsis Recent Fever Within 48 Hours No Sepsis Action Taken by Nursing No Action Required Pulse Rate 75 77 Pulse Rate [Apical] 73 Respiratory Rate 20 18 18 Blood Pressure 214/105 H Blood Pressure [Right Arm] 157/94 H Blood Pressure Mean 141 Blood Pressure Mean [Right Arm] 115 Blood Pressure Position Sitting Pulse Oximetry 95 98 94 Oxygen Delivery Method Room Air Room Air Constitutional: Vital signs reviewed. Eyes: Pupils are equal round reactive to light. Conjunctiva are noninjected. ENT: Pharynx is clear without erythema or exudate. Mucous membranes are moist. Neck supple without meningeal signs. Respiratory: Clear to auscultation bilaterally. Breath sounds are equal bilaterally. Cardiovascular: Regular rate and rhythm. No rubs or gallops. GI: Soft, nondistended and upper abdominal tenderness, no guarding. Bowel sounds are present. Musculoskeletal: No peripheral edema. No lower extremity tenderness. Integumentary: No cyanosis. Neurological: The patient is awake and alert. No focal deficits. Psychiatric: Anxious appearing. Course 1725: Past medical records reviewed. The patient was evaluated in room A3. A complete history and physical exam was performed. 181: I reevaluated the patient. The patient notes her pain has worsened. 1823: [facility]. Yoder will further evaluate the patient. 1833: I discussed the patient's test results with the patient. The patient states she is still having continuous pain but it is somewhat better. 191: I reevaluated the patient and she is feeling better. The patient is awaiting CT scan. Reevaluation(s) Reevaluation #1: I discussed the [facility]. Yoder will further evaluate the patient. Time: 18:23 Administered Medications Discontinued Medications Fentanyl Citrate (Fentanyl Citrate) 50 mcg IV NOW STA Stop: 03/13/19 18:47 Last Admin: 03/13/19 18:54 Dose: 50 mcg Documented by: [id number] Hydromorphone HCl (Dilaudid) 0.5 mg IV NOW STA Stop: 03/13/19 18:14 Last Admin: 03/13/19 18:18 Dose: 0.5 mg Documented by: [id number] Sodium Chloride (Nss) 500 mls @ 999 mls/hr IV .Q31M SILVA Stop: 03/13/19 18:00 Last Infusion: 03/13/19 18:16 Dose: 0 mls/hr Documented by: [id number] Admin: 03/13/19 17:38 Dose: 999 mls/hr Documented by: [id number] Morphine Sulfate (Morphine Sulfate) 4 mg IV NOW STA Stop: 03/13/19 17:30 Last Admin: 03/13/19 17:38 Dose: 4 mg Documented by: [id number] Ondansetron HCl (Zofran) 4 mg IV NOW STA Stop: 03/13/19 17:30 Last Admin: 03/13/19 17:38 Dose: 4 mg Documented by: [id number] Medical Decision Making Differential Diagnosis Differential diagnoses include pancreatitis, choledocholithiasis, cholelithiasis, pseudocysts, PUD, amongst others. Medical Records Attestation: I reviewed the patient's medical records. The patient was seen by GI in January. The patient has had 4 episodes of pancre atitis in the past year. She was advised to have a cholecystectomy. Home Medications Current Medication List: was personally reviewed by me Laboratory Data Attestation: I reviewed the patient's lab results. Result diagrams: 03/13/19 17:30 03/13/19 17:30 Lab Results 03/13/19 03/13/19 Range/Units 17:30 17:30 WBC 7.70 (4.8-10.8) K/uL RBC 4.73 (4.2-5.4) M/uL Hgb 15.4 (12.0-16.0) g/dL Hct 45.5 (37-47) % MCV 96.2 (80-100) fL MCH 32.6 (25-34) pg MCHC 33.8 (32-36) g/dL RDW Std Deviation 47.3 H (36.4-46.3) fL RDW Coeff of Estrellita 13.3 (11.5-14.5) % Plt Count 346 (130-400) K/uL MPV 9.5 (7.4-10.4) fL Immature Gran % (Auto) 0.3 % Neut % (Auto) 74.4 % Lymph % (Auto) 16.4 % Sunflower % (Auto) 7.5 % Eos % (Auto) 0.8 % Baso % (Auto) 0.6 % Immature Gran # (Auto) 0.02 (0.00-0.02) K/uL Neut # (Auto) 5.73 (1.4-6.5) K/uL Lymph # (Auto) 1.26 (1.2-3.4) K/uL Sunflower # (Auto) 0.58 (0.11-0.59) K/uL Eos # (Auto) 0.06 (0-0.5) K/uL Baso # (Auto) 0.05 (0-0.2) K/uL Sodium 143 (136-145) mmol/L Potassium 3.9 (3.5-5.1) mmol/L Chloride 105 (98-107) mmol/L Carbon Dioxide 30 (21-32) mmol/L Anion Gap 8.0 (3-11) BUN 17 (7-18) mg/dl Creatinine 0.71 (0.6-1.2) mg/dl Est Cr Clr Drug Dosing Not Reportable Est GFR ( Amer) 93.2 Est GFR (Non-Af Amer) 80.4 BUN/Creatinine Ratio 23.6 H (10-20) Glucose 121 H (70-99) mg/dl Calcium 9.4 (8.5-10.1) mg/dl Total Bilirubin 0.6 (0.2-1) mg/dl AST 18 (15-37) U/L ALT 31 (12-78) U/L Alkaline Phosphatase 72 (45-117) U/L Total Protein 7.8 (6.4-8.2) gm/dl Albumin 3.9 (3.4-5.0) gm/dl Globulin 3.9 (2.5-4.0) gm/dl Albumin/Globulin Ratio 1.0 (0.9-2) Lipase 63306 H (73-393) U/L Imaging Data Radiologist's Impression: Radiology results as stated below per my review and the radiologist's interpretation: CT SCAN OF THE ABDOMEN AND PELVIS WITHOUT IV CONTRAST CLINICAL HISTORY: Epigastric abdominal pain. Pancreatitis. COMPARISON STUDY: Abdominal CT dated 10/03/2018. TECHNIQUE: CT scan of the abdomen and pelvis is performed from the lung bases to the proximal femora. Images are reviewed in the axial, sagittal, and coronal planes. IV contrast was not administered for this examination as per the referring clinician. Note that the examination was performed in suboptimal fashion without oral and IV contrast. A dose lowering technique was utilized adhering to the principles of ALARA. CT DOSE: 489.52 mGy.cm FINDINGS: Lung bases: The heart is normal in size and without pericardial effusion. The coronary arteries are densely calcified. There is a large calcified granuloma in the left lower lobe. Scarring/atelectasis is noted at both lung bases. No airspace consolidation or pleural effusion is identified. Liver: The unenhanced liver is normal in size, contour, and attenuation. There is no intrahepatic biliary ductal dilatation. Gallbladder: Unremarkable. Spleen: Normal in size and attenuation. There are calcified splenic granulomas. Pancreas: The unenhanced pancreas is mildly atrophic. The duct is normal in caliber. There is inflammatory change and fluid seen around the pancreatic tail and the spleen. No organized fluid collection is suggested on this unenhanced examination. Adrenal glands: Unremarkable. Kidneys: The unenhanced kidneys are normal in size and without hydronephrosis. Parapelvic cysts are noted bilaterally. There are punctate nonobstructing left renal calculi. No right renal calculi are identified. There is no evidence of contour deforming renal mass lesion. Abdominal vasculature: The abdominal aorta is normal in course and caliber noting mild to moderate atherosclerotic calcification. Stomach and bowel: There is a large hiatal hernia, with over half of the stomach located in the thoracic cavity. The duodenum is normal in configuration. There is moderate colonic diverticulosis without CT evidence of acute diverticulitis. The colon is redundant. No bowel obstruction is seen. The appendix is well- visualized and normal. Peritoneum: There is no intraperitoneal free air or abdominal ascites. There is a fat-containing umbilical hernia. Lymphadenopathy: None. Pelvic viscera: The bladder is normal as imaged. There are calcified uterine fibroids. No adnexal lesion is seen. Skeletal structures: The skeletal structures are osteopenic. There is moderate lumbosacral spondylosis. Arthritic changes seen in the hips. Hemangiomas are noted in the bodies of T8, T12, and L2. No lytic or blastic lesions are seen. IMPRESSION: 1. Significantly suboptimal examination without oral and IV contrast 2. There is inflammatory stranding seen around the pancreatic tail, with fluid around the pancreatic tail and the spleen. This likely corresponds to the reported history of acute pancreatitis. 3. There is no evidence of organized fluid collection on this unenhanced examination. 4. Large hiatal hernia. 5. Mild colonic diverticulosis without CT evidence of acute diverticulitis. 6. Left-sided nephrolithiasis. 7. Fibroid uterus. 8. Additional findings as above. Electronically signed by: Moses Garsia M.D. 03/13/2019 7:57 PM Dictated: 03/13/191948 Transcribed: 03/13/191948 Blood Pressure Blood Pressure Findings: Elevated blood pressure Blood Pressure Disposition: further management by hospitalist AIDEN Narrative I did evaluate the patient as noted above. The patient is presenting with significant upper abdominal discomfort. She states this feels like her prior episodes of pancreatitis. It started after she ate today. She does state that morphine has helped her in the past and that she is not allergic to it. IV access was established. The patient was placed on a continuous rayon winder. I did treat her with IV morphine and Zofran. She had no relief with this medication and so she was given Dilaudid 0.5 mg IV. She complained of persistent pain and was given fentanyl 50 mcg IV. I did order a urine analysis. I did order and review the patient's blood work as noted in the electronic medical record. Her white count is not elevated. LFTs are unremarkable. She does have a lipase of over 15,000. Because of her intractable pain, I did order a CT of the abdomen and pelvis. I did review the images myself as well as the radiology report as described above. She does have acute pancreatitis without further complication. On reassessment the patient states that she is feeling better. I did discuss case with the hospitalist and case management specialist. She was given normal saline IV. Impression & Plan Acute pancreatitis, Poorly-controlled hypertension Discharge Plan Visit Data Chief Complaint: Vomiting Stated Complaint: VOMITING ED Provider: Ziggy Hernandez Discharge Problem: Acute pancreatitis, Poorly-controlled hypertension Patient Disposition: Being Evaluated by Hospitalist Discharge Instructions Interventions: ED Discharge Assessment Last Done: 03/13/19 19:57 Forms Stand Alone Forms: My [facility] Prescriptions Prescriptions: No Action cyanocobalamin (vitamin B-12) 1,000 mcg tablet extended release 1 mcg PO QAM RF: 0 ketotifen fumarate 0.025 % (0.035 %) drops 1 drp OPB UD PRN (Reason: Dry Eye(S)) RF: 0 melatonin 3 mg Tablet 3 mg PO HS PRN (Reason: Sleep) RF: 0 levothyroxine [Synthroid] 88 mcg Tablet 88 mcg PO QAM RF: 0 epinephrine [EpiPen] 0.3 mg/0.3 mL Auto-Injector 0.3 mg IM UD PRN (Reason: Allergic Reaction) RF: 0 Restasis 0.05 % Dropperette 1 drp OPHTHALMIC (EYE) Q12H RF: 0 Azo Cranberry 1 tab PO QAM RF: 0 multivitamin with minerals Tablet 1 tab PO QAM RF: 0 garlic Tablet 500 mg PO QAM RF: 0 Referrals Referrals: Rob Mayers MD [Primary Care Provider] - Discharge Problem: Acute pancreatitis Qualifiers: Pancreatitis type: unspecified pancreatitis type Acute pancreatitis complication: unspecified Qualified Code(s): K85.90 - Acute pancreatitis without necrosis or infection, unspecified The scribe's documentation has been prepared under my direction and personally reviewed by me in its entirety. I confirm that the note above accurately reflects all work, treatment, procedures, and medical decision making performed by me.
[2019-03-13 20:16] LABS: Calcium Oxalate Crystals Urine Present (None Prsent); Renal Epithelial Cells Urine 0-5 /lpf (0-5)
[2019-03-13] MEDS ORDERED: HYDROmorphone INJ 1 MG/ML SYRINGE IV PRN (20:17)
[2019-03-13] MEDS ORDERED: ONDANSETRON INJ 2 MG/ML 2 ML VIAL IV PRN (20:17)
[2019-03-13] MEDS ORDERED: HydrALAZINE HCL 20 MG/ML VIAL IV PRN (20:17)
[2019-03-13] MEDS: SODIUM CHLORIDE 0.9% 1000ML 1,000 ML IV SCH (20:21)
[2019-03-13] MEDS: FAMOTIDINE 20 MG in SYRINGE 3 ML IV SCH (20:52)
[2019-03-13 21:16] LABS: Partial Thromboplastin Ratio 0.9; Partial Thromboplastin Time 25.6 Seconds (21.0-31.0); Prothrombin Time 9.8 Seconds (9.0-12.0)
[2019-03-13] MEDS ORDERED: ENOXAPARIN INJ 40 MG/0.4 ML SYR SQ SCH (22:45)
[2019-03-14] MEDS: SODIUM CHLORIDE 0.9% 1000ML 1,000 ML IV SCH ×2 (03:15→10:05)
[2019-03-14 06:55] LABS: Basophils # (auto) 0.05 K/uL (0-0.2); Basophils % (auto) 0.7 %; Eosinophils % (auto) 1.4 %; Hemoglobin 12.8 g/dL (12.0-16.0); Immature Granulocytes # (auto) 0.02 K/uL (0.00-0.02); Immature Granulocytes % (auto) 0.3 %; Lymphocytes % (auto) 24.4 %; Mean Corpuscular Hgb Conc 32.8 g/dL (32-36); Monocytes # (auto) 0.56 K/uL (0.11-0.59); Monocytes % (auto) 7.6 %; Neutrophils # (auto) 4.86 K/uL (1.4-6.5); Neutrophils % (auto) 65.6 %; Platelet Count 268 K/uL (130-400); RDW Coefficient of Variation 13.5 % (11.5-14.5); Red Blood Count 3.94 M/uL (4.2-5.4); White Blood Count 7.39 K/uL (4.8-10.8)
[2019-03-14 07:34] LABS: BUN Creatinine Ratio 27.6 (10-20); Calcium 8.4 mg/dl (8.5-10.1); Creatinine Clr Calc Pharmacy 78.7 ml/min; Est GFR (African American) 104.6; Est GFR (Non-African American) 90.2
[2019-03-14 07:38] LABS: Albumin Globulin Ratio 1.1 (0.9-2); Bilirubin,Total 0.8 mg/dl (0.2-1); Globulin 2.7 gm/dl (2.5-4.0); Total Protein 5.7 gm/dl (6.4-8.2)
[2019-03-14] MEDS: FAMOTIDINE 20 MG in SYRINGE 3 ML IV SCH (07:46)
--- NOTE | 2019-03-14 10:39 | Gastrointestinal Consultation ---
Date of Consultation March 14, 2019 Assessment & Plan (1) Acute pancreatitis: Patient with recurrent pancreatitis - unknown etiology, however she still does have her gb. Recommendations are for cholecystectomy, however she is reluctant to have this done. she has improved, and is planned for discharge today. would consider further genetic/autoimmune testing if this has not yet been done. Supervising Physician Co-Signing Physician Notes I have seen and examined the patient with Fallon Bojorquez PA-C whose note reflects our findings and plan. History of Present Illness Reason for Consultation: Recurrent pancreatitis Requesting Physician: Sasha Martin MD Attending Physician: Sasha Martin MD History of Present Illness 79 year old female with a hx of recurrent pancreatitis, admitted with n/v and epigastric pain which started yesterday. Found to have a significantly elevated lipase and imaging suggestive of pancreatitis. She states this is her 7th episode in total of pancreatitis, and this episode has been much worse, compared to prior. She does not drink ETOH. Trig has been normal. She does not appear to be taking any meds which could contribute to pancreatitis. She still has her gb. EUS was performed this past April, showing: Impression: - A cystic lesion was seen in the pancreatic head. - There was no sign of significant pathology in the common bile duct. - Hyperechoic material consistent with sludge was visualized endosonographically in the gallbladder body. - There was no evidence of significant pathology in the left lobe of the liver. - The celiac trunk was endosonographically normal. - No specimens collected. She was seen by [facility] gastro in January who recommended a cholecystectomy. She has been very reluctant to have this done, and on interview with her today she continues to be resistant to the idea. She is concerned about complications from surgery, especially if there is no guarantee that this will stop her episodes of pancreatitis. She reports that her symptoms have improved today and has tolerated clears this morning. Her diet is to be advanced for lunch and plan is for her to go home today if she tolerates this. IV fluids have already been stopped. Allergies Allergy/AdvReac Type Severity Reaction Status Date / Time Iodinated Contrast- Oral and Allergy Unknown RASH Verified 10/11/18 18:40 IV Dye latex Allergy Unknown HIVES Verified 10/11/18 18:40 bee venom protein (honey bee) Allergy Unknown Verified 03/13/19 17:38 Home Medications Home Medications Medication Instructions Recorded Confirmed Type Restasis 1 drp OPHTHALMIC (EYE) Q12H 07/29/18 03/13/19 History epinephrine [EpiPen] 0.3 mg IM UD PRN 07/29/18 03/13/19 History levothyroxine [Synthroid] 88 mcg PO QAM 07/29/18 03/13/19 History melatonin 3 mg PO HS PRN 07/29/18 03/13/19 History cyanocobalamin (vit B-12) ER 1,000 1 mcg PO QAM tab 02/27/19 03/13/19 History mcg tablet,extended release ketotifen 0.025 % (0.035 %) eye 1 drp OPB UD PRN ml 02/27/19 03/13/19 History drops Azo Cranberry 1 tab PO QAM 03/13/19 03/13/19 History garlic 500 mg PO QAM 03/13/19 03/13/19 History multivitamin with minerals 1 tab PO QAM 03/13/19 03/13/19 History Patient History Medical History Acute pancreatitis (Acute) Hypertension Microscopic hematuria Hypothyroidism (Chronic) Recurrent pancreatitis Hiatal hernia (Acute) Lyme disease Surgical History S/P bunionectomy right foot X 2 S/P tonsillectomy and adenoidectomy age 14 years Family History Mother Emphysema lung Father Myocardial infarction Other No significant family history Social History Preferred Language: Mohawk Communication Ability: Effective Operations Clerk Required: No Beliefs That Will Affect Care: None Current Living Situation: Spouse Other Information That Helps Us Care for You: No Feels Safe at Home: Yes Safety Concerns: Feels Safe At This Time Smoking Status: Never smoker Hx Alcohol Use: No Hx Substance Use: No Review of Systems Constitutional: no fever, no chills, no fatigue and no weight loss Eyes: no eye pain and no worsening vision Ear, Nose, Mouth, Throat: no ear pain, no hearing loss, no nasal congestion an d no sore throat Respiratory: no cough, no chest congestion and no wheezing Cardiovascular: no chest pain and no dyspnea Gastrointestinal: as per Subjective / HPI Genitourinary: no dysuria and no urinary incontinence Musculoskeletal: no joint pain Integumentary: no rash and no pruritus Neurologic: no tingling, no numbness and no dizziness Psychiatric: no suicidal ideation and no confusion Endocrine: no cold intolerance and no heat intolerance Hematologic / Lymphatic: no easy bleeding and no easy bruising Allergy / Immunological: no problem reported Physical Exam Constitutional: WD/WN, vitals as above healthy appearing; no acute distress Eyes: + anicteric sclerae ENMT: external ear and nose normal, oropharynx normal Neck: normal visual inspection Respiratory: normal respiratory effort, lungs clear to auscultation Cardiovascular: Rate/Rhythm: regular rate and regular rhythm Heart Sounds: no murmur Gastrointestinal (Abdomen): normal bowel sounds, soft, nontender, no hepatosplenomegaly Musculoskeletal: Head/Neck/Chest: normocephalic and head atraumatic Skin: no rashes, warm and dry Neurologic: moves all extremities; no focal motor deficits Psychiatric: Orientation: alert and oriented x 3 Results & Data Vital Signs (Past 12 Hours) Vital Signs Temp Pulse Pulse Resp BP Pulse Ox 03/14/19 06:54 36.8 C 56 L 18 144/73 H 97 03/14/19 04:00 36.6 C 60 20 157/83 H 95 03/14/19 00:13 70 Laboratory Results - last 24 hr 03/13/19 03/13/19 03/13/19 17:30 17:30 17:37 WBC 7.70 RBC 4.73 Hgb 15.4 Hct 45.5 MCV 96.2 MCH 32.6 MCHC 33.8 RDW Std Deviation 47.3 H RDW Coeff of [place] 13.3 Plt Count 346 MPV 9.5 Immature Gran % (Auto) 0.3 Neut % (Auto) 74.4 Lymph % (Auto) 16.4 [place] % (Auto) 7.5 Eos % (Auto) 0.8 Baso % (Auto) 0.6 Immature Gran # (Auto) 0.02 Neut # (Auto) 5.73 Lymph # (Auto) 1.26 [place] # (Auto) 0.58 Eos # (Auto) 0.06 Baso # (Auto) 0.05 PT Cancelled INR Cancelled APTT PTT Ratio Sodium 143 Potassium 3.9 Chloride 105 Carbon Dioxide 30 Anion Gap 8.0 BUN 17 Creatinine 0.71 Est Cr Clr Drug Dosing Not Reportable Est GFR ( Amer) 93.2 Est GFR (Non-Af Amer) 80.4 BUN/Creatinine Ratio 23.6 H Glucose 121 H Calcium 9.4 Total Bilirubin 0.6 AST 18 ALT 31 Alkaline Phosphatase 72 Total Protein 7.8 Albumin 3.9 Globulin 3.9 Albumin/Globulin Ratio 1.0 Lipase 58554 H Urine Color Urine Appearance Urine pH Ur Specific [place] Urine Protein Urine Glucose (UA) Urine Ketones Urine Blood Urine Nitrite Urine Bilirubin Urine Urobilinogen Ur Leukocyte Esterase Urine WBC (Auto) Urine RBC (Auto) U Hyaline Cast (Auto) U Epithel Cells (Auto) Urine Bacteria (Auto) Ur Renal Epithelial Cell Urine Crystals Calcium Oxalate Crystal 03/13/19 03/13/19 03/14/19 17:37 Unknown 06:39 WBC 7.39 RBC 3.94 L Hgb 12.8 Hct 39.0 MCV 99.0 MCH 32.5 MCHC 32.8 RDW Std Deviation 49.0 H RDW Coeff of [place] 13.5 Plt Count 268 MPV 9.0 Immature Gran % (Auto) 0.3 Neut % (Auto) 65.6 Lymph % (Auto) 24.4 [place] % (Auto) 7.6 Eos % (Auto) 1.4 Baso % (Auto) 0.7 Immature Gran # (Auto) 0.02 Neut # (Auto) 4.86 Lymph # (Auto) 1.80 [place] # (Auto) 0.56 Eos # (Auto) 0.10 Baso # (Auto) 0.05 PT 9.8 INR 1.0 APTT 25.6 PTT Ratio 0.9 Sodium Potassium Chloride Carbon Dioxide Anion Gap BUN Creatinine Est Cr Clr Drug Dosing Est GFR ( Amer) Est GFR (Non-Af Amer) BUN/Creatinine Ratio Glucose Calcium Total Bilirubin AST ALT Alkaline Phosphatase Total Protein Albumin Globulin Albumin/Globulin Ratio Lipase Urine Color Yellow Urine Appearance Turbid A Urine pH 8.0 H Ur Specific [place] 1.018 Urine Protein Negative Urine Glucose (UA) Negative Urine Ketones Trace H Urine Blood Negative Urine Nitrite Negative Urine Bilirubin Negative Urine Urobilinogen Negative Ur Leukocyte Esterase Negative Urine WBC (Auto) 1-5 Urine RBC (Auto) >30 H U Hyaline Cast (Auto) 5-10 H U Epithel Cells (Auto) >30 H Urine Bacteria (Auto) Negative Ur Renal Epithelial Cell 0-5 Urine Crystals Not Reportable Calcium Oxalate Crystal Present A 03/14/19 06:39 WBC RBC Hgb Hct MCV MCH MCHC RDW Std Deviation RDW Coeff of [place] Plt Count MPV Immature Gran % (Auto) Neut % (Auto) Lymph % (Auto) [place] % (Auto) Eos % (Auto) Baso % (Auto) Immature Gran # (Auto) Neut # (Auto) Lymph # (Auto) [place] # (Auto) Eos # (Auto) Baso # (Auto) PT INR APTT PTT Ratio Sodium 145 Potassium 4.0 Chloride 113 H Carbon Dioxide 28 Anion Gap 4.0 BUN 14 Creatinine 0.52 L Est Cr Clr Drug Dosing 78.7 Est GFR ( Amer) 104.6 Est GFR (Non-Af Amer) 90.2 BUN/Creatinine Ratio 27.6 H Glucose 75 Calcium 8.4 L Total Bilirubin 0.8 AST 14 L ALT 21 Alkaline Phosphatase 53 Total Protein 5.7 L D Albumin 3.0 L Globulin 2.7 Albumin/Globulin Ratio 1.1 Lipase 4546 H Urine Color Urine Appearance Urine pH Ur Specific [place] Urine Protein Urine Glucose (UA) Urine Ketones Urine Blood Urine Nitrite Urine Bilirubin Urine Urobilinogen Ur Leukocyte Esterase Urine WBC (Auto) Urine RBC (Auto) U Hyaline Cast (Auto) U Epithel Cells (Auto) Urine Bacteria (Auto) Ur Renal Epithelial Cell Urine Crystals Calcium Oxalate Crystal Non-contrast CTAP: IMPRESSION: 1. Significantly suboptimal examination without oral and IV contrast 2. There is inflammatory stranding seen around the pancreatic tail, with fluid around the pancreatic tail and the spleen. This likely corresponds to the reported history of acute pancreatitis. 3. There is no evidence of organized fluid collection on this unenhanced examination. 4. Large hiatal hernia. 5. Mild colonic diverticulosis without CT evidence of acute diverticulitis. 6. Left-sided nephrolithiasis. 7. Fibroid uterus. 8. Additional findings as above. (1) Acute pancreatitis Acute pancreatitis complication: unspecified Pancreatitis type: unspecified pancreatitis type Qualified Code(s): K85.90 - Acute pancreatitis without necrosis or infection, unspecified
--- NOTE | 2019-03-14 19:04 | Discharge Summary ---
Date of Service March 14, 2019 Admission HPI Per Admitting Provider 79-year-old female with recurrent episodes of pancreatitis. She was doing well until today around 1 PM when she developed acute onset of epigastric pain followed by nausea and vomiting. She has had multiple previous episodes of pancreatitis with similar symptoms. Lipase is 15,000. She is not a drinker and does not have hypertriglyceridemia. She should strongly consider cholecystectomy to hopefully prevent further recurrences although this is no guarantee. She will be kept n.p.o. and and administered IV fluids. Gastroenterology consult will be requested. She has uncontrolled hypertension and will be treated with intravenous hydralazine on an as-needed basis. Admission Exam Per Admitting Provider General-alert and oriented x3, no fevers, no chills HEENT-head atraumatic and normocephalic, TMs intact bilaterally, pupils equal and reactive to light, extraocular muscles intact Neck-no lymphadenopathy or thyromegaly, trachea midline Chest-clear to auscultation percussion. No rales wheezing or rhonchi Cardiac-regular rate and rhythm, normal S1 and S2, no murmurs Abdomen-nondistended. Bowel sounds are hypoactive but present. Epigastric tenderness. No overt rebound or guarding Extremities-no cyanosis, clubbing, or edema Neuro-cranial nerves II through XII intact, motor and sensory function within normal limits, strength symmetrical , no focal deficits Psych-normal affect, normal mood Principal Diagnosis Acute pancreatitis Discharge Exam General: In NAD CV: RRR, no m/r/g PULM: CTAB, equal breath sounds bilaterally Abdomen: +BS, no TTP in all quadrants, non-distended LE: no calf TTP, no LE edema Discharge Data Allergies Allergy/AdvReac Type Severity Reaction Status Date / Time Iodinated Contrast- Oral and Allergy Unknown RASH Verified 10/11/18 18:40 IV Dye latex Allergy Unknown HIVES Verified 10/11/18 18:40 bee venom protein (honey bee) Allergy Unknown Verified 03/13/19 17:38 Consultations 03/13/19 18:24 ED Decision to Admit Stat 03/13/19 20:17 Consult Gastroenterology Routine Ordered Studies 03/13/19 18:34 CT abd pelvis wo con Stat Hospital Course (1) Acute pancreatitis: Acute pancreatitis: with h/o recurrent pancreatitis Kept on IVF and NPO overnight. [place] [address] to 4544 Pain and nausea/vomiting improved Tolerated advanced diet GI consulted: unknown etiology. Recommendations are for cholecystectomy. Consider further genetic/autoimmune testing if this has not yet been done. To be further addressed as outpatient. Elevated BP during hospital stay: Received Hydralazine IV as needed Outpatient monitoring Hypothyroidism: Continue home levothyroxine DVT prophylaxis: Lovenox subcu Code: Full (2) Vitamin B12 deficiency: (3) Hypertension: (4) Hypothyroidism: Total Time Total Time Spent Total Time Spent (In Minutes): <60 mins Discharge Plan Discharge Items Patient Disposition: Home - Self-Care Reason For Visit: RECURRENT PANCREATITIS Discharge Diagnosis: Acute pancreatitis Condition: Good Discharge Goals: Decrease discomfort, Diagnostic testing and Therapeutic intervention Activity: Resume your previous activity Non-emergency contact: Primary Care Provider Call non-emergency contact if: you have any medication questions, your symptoms worsen and your temperature is above 100.5 Follow-up/Referrals: Rob Mayers MD [Primary Care Provider] - Diet: Heart Healthy Addtl Provider Instructions: Ms. Vidales you were admitted for a recurrent episode of pancreatitis. Again we are not sure why you had your current episode. We recommend you follow up with your primary care doctor and outpatient GI doctor in [place] to see if you might benefit from gallbladder removal or further work up to determine the cause of your recurrent pancreatitis. Please see your primary care doctor as scheduled in March See your primary care doctor sooner or return to the hospital/emergency room if your symptoms return or if you have any other concerns Prescriptions: Continued cyanocobalamin (vitamin B-12) 1,000 mcg tablet extended release 1 mcg PO QAM RF: 0 ketotifen fumarate 0.025 % (0.035 %) drops 1 drp OPB UD PRN (Reason: Dry Eye(S)) RF: 0 melatonin 3 mg Tablet 3 mg PO HS PRN (Reason: Sleep) RF: 0 levothyroxine [Synthroid] 88 mcg Tablet 88 mcg PO QAM RF: 0 epinephrine [EpiPen] 0.3 mg/0.3 mL Auto-Injector 0.3 mg IM UD PRN (Reason: Allergic Reaction) RF: 0 Restasis 0.05 % [place] 1 drp OPHTHALMIC (EYE) Q12H RF: 0 Azo Cranberry 1 tab PO QAM RF: 0 multivitamin with minerals Tablet 1 tab PO QAM RF: 0 garlic Tablet 500 mg PO QAM RF: 0 Stand-Alone Forms: [facility] Discharge Orders: Discharge Order (Routine); Ordered 03/14/19 Ordered By: Mikayla Albarran Admission Data Admit Date/Time: 03/13/19 19:10 Attending Provider: Sasha Martin Admit Provider: Damian Yoder Primary Care Provider: Rob Mayers Other Providers: Damian Yoder ; Bello Lindsey Service: Telemetry Medical Other Interventions: Discharge Summary Assessment (RN) Last Done: 03/14/19 12:32 DC Date/Time DO NOT enter until pt leaves facility: 03/14/19 13:50 Supervising Physician Co-Signing Physician Notes Resident Physician Supervision Note: I independently interviewed and examined the patient and verified the ruelas history and physical, reviewed labs and image studies, discussed the case with the resident Dr. Albarran and agree with the findings and care plan. Time spent in discharge 35min Resident Activity Tracking Resident Involvement: Resident Care Provided Care Provided: Adult Hospital Medicine
== END 2019-03-14 13:50 | disposition home or self-care (01) | DRG 440 ==
LOC: ED 17:12 → SUATTDRO 19:10 → 2W 19:10

== ENCOUNTER 2019-06-21 17:38 | Inpatient (IN) ==
[2019-06-21] MEDS ORDERED: ONDANSETRON INJ 2 MG/ML 2 ML VIAL IV STA (18:13)
[2019-06-21] MEDS ORDERED: SODIUM CHLORIDE 0.9% 500 ML IV SCH (18:15)
[2019-06-21] MEDS ORDERED: MoRPHine SULFATE 4 MG/ML 1 ML CARP\\VIAL IV STA ×2 (18:27→19:48)
--- NOTE | 2019-06-21 18:37 | Emergency Department Note ---
Entered by Alida Gonzalez acting as a scribe for Ward Noriega DO History of Present Illness General Chief complaint: Abdominal Pain Stated complaint: ABDOMINAL PAIN Time Seen by Provider: 06/21/19 18:11 Source: patient Limitations: no limitations History of Present Illness Provider complaint: Abdominal pain Onset (ago): hour(s) 5 Location: abdomen Pain Consistency: + constant Maximum Pain Intensity: 10 Quality: + constant Associated symptoms: + nausea/vomiting (little vomiting ) and + other (Positive: abdominal pain, spitting of phlegm. Negative: diarrhea ) The patient is an 79 year old female with past medical history of DVT prophylaxis, acute pancreatitis, insomnia, leukocytosis, HTN, abdominal pain, hypothyroidism, who presents to the ED with complaints of constant abdominal pain that started 5 hours ago. The patient reports something triggered her pancreatitis. She notes she had something with tomato sauce around noon and her symptoms started an hour after. The patient additionally states she had a lot of spitting of phlegm and very little vomiting. She denies diarrhea. The patient reports she was given morphine last time she was here for the same symptoms which helped her. Home Medications Home Medications Medication Instructions Recorded Confirmed Type cyanocobalamin (vit B-12) ER 1,000 1,000 mcg PO QAM tab 02/27/19 06/21/19 History mcg tablet,extended release ketotifen 0.025 % (0.035 %) eye 1 drp OPB DIRECTED PRN ml 02/27/19 06/21/19 History drops cranberry fruit concentrate 250 mg 250 mg PO QAM tab 03/15/19 06/21/19 History chewable tablet cyclosporine 0.05 % eye drops in a 1 drp OPB Q12H 03/26/19 06/21/19 History dropperette epinephrine 0.3 mg/0.3 mL 0.3 mg IM DIRECTED PRN 03/26/19 06/21/19 History injection, auto-injector melatonin 3 mg tablet 3 mg PO HS 03/26/19 06/21/19 History multivitamin with minerals tablet 1 tab PO QAM 03/26/19 06/21/19 History levothyroxine [Synthroid] 88 mcg PO QAM 06/21/19 06/21/19 History Allergies Allergy/AdvReac Type Severity Reaction Status Date / Time Iodinated Contrast Media Allergy Unknown RASH Verified 04/18/19 16:14 latex Allergy Unknown HIVES Verified 04/18/19 16:14 bee venom protein (honey bee) Allergy Unknown Verified 04/18/19 16:14 Past Med/Surg History Medical History Acute pancreatitis (Acute) Hypertension Microscopic hematuria Hypothyroidism (Chronic) Recurrent pancreatitis Hiatal hernia (Acute) Arthritis Lyme disease Surgical History S/P bunionectomy right foot X 2 S/P tonsillectomy and adenoidectomy age 14 years Family History Mother Emphysema lung Father Myocardial infarction Hypertension Other No significant family history Social History Preferred Language: Czech Communication Ability: Effective 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 and A total of 10 systems reviewed and were otherwise negative Physical Exam Vital Signs Vital Signs - 24 hr 06/21/19 17:56 06/21/19 18:43 06/21/19 19:29 Temperature 36.8 C Temperature Source Oral Sepsis Recent Fever Within 48 Hours No Sepsis New/Unexplained Change in Mental Status No Sepsis Action Taken by Nursing No Action Required Pulse Rate 74 Pulse Rate [Finger] 75 77 Pulse Rhythm Regular Pulse Rhythm [Finger] Regular Pulse Strength Normal Pulse Strength [Finger] Normal Respiratory Rate 20 18 18 Respiratory Effort / Characteristics Non-Labored Spontaneous Non-Labored Spontaneous Respiratory Depth Normal Normal Respiratory Pattern Regular Regular Blood Pressure 180/92 H Blood Pressure [Right Arm] 199/99 H 199/96 H Blood Pressure Mean 121 Blood Pressure Mean [Right Arm] 132 130 Blood Pressure Position Sitting Blood Pressure Position [Right Arm] Lying Pulse Oximetry 98 98 96 Oxygen Delivery Method Room Air Room Air Room Air 06/21/19 20:56 Temperature Temperature Source Sepsis Recent Fever Within 48 Hours Sepsis New/Unexplained Change in Mental Status Sepsis Action Taken by Nursing Pulse Rate Pulse Rate [Finger] 81 Pulse Rhythm Pulse Rhythm [Finger] Pulse Strength Pulse Strength [Finger] Respiratory Rate 18 Respiratory Effort / Characteristics Respiratory Depth Respiratory Pattern Blood Pressure Blood Pressure [Right Arm] 167/85 H Blood Pressure Mean Blood Pressure Mean [Right Arm] 112 Blood Pressure Position Blood Pressure Position [Right Arm] Pulse Oximetry 97 Oxygen Delivery Method Room Air CONSTITUTIONAL/VITAL SIGNS: Reviewed / noted above. GENERAL: Non-toxic in appearance. INTEGUMENTARY: Warm, dry, and [place]. HEAD: Normocephalic. EYES: without scleral icterus or trauma. ENT/OROPHARYNX: clear and moist. LYMPHADENOPATHY/NECK: Is supple without lymphadenopathy or meningismus. RESPIRATORY: Lungs clear and equal. CARDIOVASCULAR: Regular rate and rhythm. GI/ABDOMEN: Soft. Tenderness to epigastric area. No organomegaly or pulsatile mass. No rebound or guarding. Normal bowel sounds. EXTREMITIES: Warm and well perfused. BACK: No CVA tenderness. NEUROLOGICAL: Intact without focal deficits. PSYCHIATRIC: normal affect. MUSCULOSKELETAL: Normally developed with good muscle tone. Course 1818: The patient was evaluated in room C11B. A complete history and physical exam was performed. 2019: Upon reevaluation, the patient is resting comfortably. I discussed laboratory and radiographic results with her. The patient verbalized agreement of the treatment plan. The patient will be evaluated for further management and care. 2104: I discussed the patients case with Dr. Guardado, [facility] Hospitalist. He will evaluate the patient for further management. Administered Medications Discontinued Medications Sodium Chloride (Nss) 500 mls @ 999 mls/hr IV .Q31M SILVA Stop: 06/21/19 18:45 Last Infusion: 06/21/19 19:47 Dose: 0 mls/hr Documented by: [id number] Admin: 06/21/19 18:43 Dose: 999 mls/hr Documented by: [id number] Morphine Sulfate (Morphine Sulfate) 4 mg IV NOW STA Stop: 06/21/19 18:28 Last Admin: 06/21/19 18:43 Dose: 4 mg Documented by: [id number] Morphine Sulfate (Morphine Sulfate) 4 mg IV NOW STA Stop: 06/21/19 19:49 Last Admin: 06/21/19 19:50 Dose: 4 mg Documented by: [id number] Ondansetron HCl (Zofran) 4 mg IV NOW STA Stop: 06/21/19 18:14 Last Admin: 06/21/19 18:40 Dose: 4 mg Documented by: [id number] Medical Decision Making Differential Diagnosis Differential diagnosis: Etiologies such as appendicitis, diverticulitis, PUD, biliary pathology, UTI, pancreatitis, obstruction, mesenteric ischemia, aortic pathology, infections, inflammatory bowel disease, renal colic, as well as others were entertained. Medical Records Attestation: I reviewed the patient's medical records. Home Medications Current Medication List: was personally reviewed by me Laboratory Data Attestation: I reviewed the patient's lab results. Result diagrams: 06/21/19 18:34 06/21/19 18:34 Lab Results 06/21/19 06/21/19 Range/Units 18:34 18:34 WBC 10.29 (4.8-10.8) K/uL RBC 4.70 (4.2-5.4) M/uL Hgb 15.4 (12.0-16.0) g/dL Hct 45.4 (37-47) % MCV 96.6 (80-100) fL MCH 32.8 (25-34) pg MCHC 33.9 (32-36) g/dL RDW Std Deviation 45.7 (36.4-46.3) fL RDW Coeff of Estrellita 12.9 (11.5-14.5) % Plt Count 376 (130-400) K/uL MPV 9.5 (7.4-10.4) fL Immature Gran % (Auto) 0.1 % Neut % (Auto) 83.0 % Lymph % (Auto) 9.8 % [place] % (Auto) 6.3 % Eos % (Auto) 0.4 % Baso % (Auto) 0.4 % Immature Gran # (Auto) 0.01 (0.00-0.02) K/uL Neut # (Auto) 8.54 H (1.4-6.5) K/uL Lymph # (Auto) 1.01 L (1.2-3.4) K/uL [place] # (Auto) 0.65 H (0.11-0.59) K/uL Eos # (Auto) 0.04 (0-0.5) K/uL Baso # (Auto) 0.04 (0-0.2) K/uL Sodium 141 (136-145) mmol/L Potassium 3.9 (3.5-5.1) mmol/L Chloride 106 (98-107) mmol/L Carbon Dioxide 29 (21-32) mmol/L Anion Gap 6.0 (3-11) BUN 16 (7-18) mg/dl Creatinine 0.71 (0.6-1.2) mg/dl Est Cr Clr Drug Dosing 56.9 ml/min Est GFR ( Amer) 93.2 Est GFR (Non-Af Amer) 80.4 BUN/Creatinine Ratio 22.7 H (10-20) Glucose 133 H (70-99) mg/dl Calcium 9.9 (8.5-10.1) mg/dl Total Bilirubin 0.4 (0.2-1) mg/dl AST 29 (15-37) U/L ALT 40 (12-78) U/L Alkaline Phosphatase 77 (45-117) U/L Total Protein 7.5 (6.4-8.2) gm/dl Albumin 3.8 (3.4-5.0) gm/dl Globulin 3.7 (2.5-4.0) gm/dl Albumin/Globulin Ratio 1.0 (0.9-2) Lipase 11211 H (73-393) U/L Blood Pressure Blood Pressure Findings: Elevated blood pressure Blood Pressure Disposition: further management by hospitalist MDM Narrative This is an 79-year-old female who presents to the ED with a chief complaint of epigastric abdominal pain as well as some nausea and dry heaves. Her symptoms started around 1 PM. She relates that her symptoms started shortly after eating a tomato sauce-based food about an hour prior. The patient denies any diarrhea. Her vital signs reveals hypertension. Her physical exam reveals no acute distress. She does have hyperactive bowel sounds and some epigastric tenderness. The patient CBC and chemistry panel was unremarkable. Lipase is 17,124. This is concerning for acute pancreatitis. The patient was treated with IV fluids and IV morphine for pain and IV Zofran for nausea. She will be seen by the hospitalist for further evaluation and care. Impression & Plan Acute pancreatitis Discharge Plan Visit Data Chief Complaint: Abdominal Pain Stated Complaint: ABDOMINAL PAIN ED Provider: Ward Noriega Discharge Problem: Acute pancreatitis Patient Disposition: Being Evaluated by Hospitalist Forms Stand Alone Forms: Call Back Authorization, [facility] Prescriptions Prescriptions: No Action cyanocobalamin (vitamin B-12) 1,000 mcg tablet extended release 1,000 mcg PO QAM RF: 0 ketotifen fumarate 0.025 % (0.035 %) drops 1 drp OPB DIRECTED PRN (Reason: Dry Eye(S)) RF: 0 Azo Cranberry 250 mg tablet,chewable 250 mg PO QAM RF: 0 Restasis 0.05 % dropperette 1 drp OPB Q12H RF: 0 epinephrine [EpiPen] 0.3 mg/0.3 mL auto-injector 0.3 mg IM DIRECTED PRN (Reason: Allergic Reaction) RF: 0 melatonin 3 mg tablet 3 mg PO HS RF: 0 levothyroxine [Synthroid] 88 mcg tablet 88 mcg PO QAM RF: 0 multivitamin with minerals tablet 1 tab PO QAM RF: 0 Referrals Referrals: Rob Mayers MD [Primary Care Provider] - Discharge Problem: Acute pancreatitis Qualifiers: Pancreatitis type: other Acute pancreatitis complication: unspecified Qualified Code(s): K85.80 - Other acute pancreatitis without necrosis or infection The scribe's documentation has been prepared under my direction and personally reviewed by me in its entirety. I confirm that the note above accurately reflects all work, treatment, procedures, and medical decision making performed by me.
[2019-06-21 18:56] LABS: Basophils # (auto) 0.04 K/uL (0-0.2); Basophils % (auto) 0.4 %; Eosinophils # (auto) 0.04 K/uL (0-0.5); Eosinophils % (auto) 0.4 %; Hematocrit (blood only) 45.4 % (37-47); Hemoglobin 15.4 g/dL (12.0-16.0); Immature Granulocytes # (auto) 0.01 K/uL (0.00-0.02); Immature Granulocytes % (auto) 0.1 %; Lymphocytes # (auto) 1.01 K/uL (1.2-3.4); Lymphocytes % (auto) 9.8 %; Mean Corpuscular Hemoglobin 32.8 pg (25-34); Mean Corpuscular Hgb Conc 33.9 g/dL (32-36); Mean Corpuscular Volume 96.6 fL (80-100); Mean Platelet Volume 9.5 fL (7.4-10.4); Monocytes # (auto) 0.65 K/uL (0.11-0.59); Monocytes % (auto) 6.3 %; Neutrophils # (auto) 8.54 K/uL (1.4-6.5); Platelet Count 376 K/uL (130-400); RDW Coefficient of Variation 12.9 % (11.5-14.5); RDW Standard Deviation 45.7 fL (36.4-46.3); White Blood Count 10.29 K/uL (4.8-10.8)
[2019-06-21 19:04] LABS: Albumin Level 3.8 gm/dl (3.4-5.0); BUN Creatinine Ratio 22.7 (10-20); Calcium 9.9 mg/dl (8.5-10.1); Creatinine Clr Calc Pharmacy 56.9 ml/min; Est GFR (African American) 93.2; Est GFR (Non-African American) 80.4; Potassium 3.9 mmol/L (3.5-5.1)
[2019-06-21 19:07] LABS: Bilirubin,Total 0.4 mg/dl (0.2-1); Globulin 3.7 gm/dl (2.5-4.0); Total Protein 7.5 gm/dl (6.4-8.2)
[2019-06-21] MEDS ORDERED: KETOROLAC TROMETHAMINE 15 MG/ML VIAL IV PRN (22:46)
[2019-06-21] MEDS ORDERED: MoRPHine SULFATE 2 MG/ML CARP IV PRN (22:46)
[2019-06-21] MEDS ORDERED: ONDANSETRON INJ 2 MG/ML 2 ML VIAL IV PRN (22:46)
[2019-06-21] MEDS ORDERED: MoRPHine SULFATE 4 MG/ML 1 ML CARP\\VIAL IV PRN (22:46)
--- NOTE | 2019-06-21 23:20 | History & Physical Report ---
Date of Service June 21, 2019 Assessment & Plan (1) Recurrent pancreatitis: Admit GMF Strict NPO LR 200ml/hr Pain and nausea control Follow Lipase GI consult. (2) Hypothyroidism: IV Levothyroxine. (3) Hypertension: Does not take anything at home Was elevated here initially IV hydralazine prn (4) [place]: Continue eye drops. History of Present Illness 79 y/o female presented to the ED with acute onset of constant epigastric pain of 5 hours duration. She has had multiple episodes of pancreatitis in the past and felt that this is similar to this condition. Symptoms began 1 hour after meal. The pain was associated with nausea and vomiting ( small amount). No F/C, cough SOB, chest pain, hematemesis, or diarrhea. . Primary Care Provider: Rob Mayers MD Allergies Allergy/AdvReac Type Severity Reaction Status Date / Time Iodinated Contrast Media Allergy Unknown RASH Verified 04/18/19 16:14 latex Allergy Unknown HIVES Verified 04/18/19 16:14 bee venom protein (honey bee) Allergy Unknown Verified 04/18/19 16:14 Home Medications Home Medications Medication Instructions Recorded Confirmed Type cyanocobalamin (vit B-12) ER 1,000 1,000 mcg PO QAM tab 02/27/19 06/21/19 History mcg tablet,extended release ketotifen 0.025 % (0.035 %) eye 1 drp OPB DIRECTED PRN ml 02/27/19 06/21/19 History drops cranberry fruit concentrate 250 mg 250 mg PO QAM tab 03/15/19 06/21/19 History chewable tablet cyclosporine 0.05 % eye drops in a 1 drp OPB Q12H 03/26/19 06/21/19 History dropperette epinephrine 0.3 mg/0.3 mL 0.3 mg IM DIRECTED PRN 03/26/19 06/21/19 History injection, auto-injector melatonin 3 mg tablet 3 mg PO HS 03/26/19 06/21/19 History multivitamin with minerals tablet 1 tab PO QAM 03/26/19 06/21/19 History levothyroxine [Synthroid] 88 mcg PO QAM 06/21/19 06/21/19 History Past Med/Surg History Medical History Acute pancreatitis (Acute) Hypertension Microscopic hematuria Hypothyroidism (Chronic) Recurrent pancreatitis Hiatal hernia (Acute) Arthritis Lyme disease Surgical History S/P bunionectomy right foot X 2 S/P tonsillectomy and adenoidectomy age 14 years Family History Mother Emphysema lung Father Myocardial infarction Hypertension Other No significant family history Social History Preferred Language: Haitian Communication Ability: Effective 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 Beliefs That Will Affect Care: None marital status: Current Living Situation: Spouse 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 occupational status: 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 Feels Safe at Home: Yes Smoking Status: Never smoker Hx Alcohol Use: No Hx Substance Use: No Seatbelt Use: always Review of Systems Review of Systems: All systems reviewed & are unremarkable except as noted in HPI & below Constitutional- no fever; no weight loss Eyes- no acute visual changes ENT- no sinus drainage; no pharyngitis Pulmonary- no cough, no wheezing, no shortness of breath Cardiac- no chest pain, no palpitations, no orthopnea, no dependent edema GI- As in HPI - no dysuria, no hematuria Musculoskeletal- no arthralgias, no myalgias Derm- no rashes, no new skin lesions, no changing skin lesions Hematologic- no unusual bruising, no unusual bleeding Lymphatics- no adenopathy Endocrine- no polyuria or polydipsia; no heat or cold intolerance Neuro- no headaches, no focal neurologic symptoms Psych- no anxiety, no depression Physical Exam Physical Exam: General- adult female, NAD Head- atraumatic Eyes- PERRL, EOMI, anicteric ENT- oropharynx clear Neck- supple, no JVD, no adenopathy, no thyromegaly. Lungs- CTA b/l No R/R/W Heart- regular rhythm; no murmur, no gallop, no rub appreciated Abdomen- normal bowel sounds, soft, + epigastric tenderness, No rebound or guarding. Extremities- no pretibial edema, no calf tenderness; peripheral pulses intact Neuro- alert, oriented x 3; PERRL, EOMI; CN's II-XII grossly intact, non-focal. Skin- warm & dry Results & Data Vital Signs (Past 12 Hours) Vital Signs Temp Pulse Pulse Resp BP BP Pulse Ox 06/21/19 22:44 65 18 139/81 94 06/21/19 20:56 81 18 167/85 H 97 06/21/19 19:29 77 18 199/96 H 96 06/21/19 18:43 75 18 199/99 H 98 06/21/19 17:56 36.8 C 74 20 180/92 H 98 Laboratory Results Laboratory Results WBC 10.29 K/uL (4.8-10.8) 06/21/19 18:34 RBC 4.70 M/uL (4.2-5.4) 06/21/19 18:34 Hgb 15.4 g/dL (12.0-16.0) 06/21/19 18:34 Hct 45.4 % (37-47) 06/21/19 18:34 MCV 96.6 fL (80-100) 06/21/19 18:34 MCH 32.8 pg (25-34) 06/21/19 18:34 MCHC 33.9 g/dL (32-36) 06/21/19 18:34 RDW Std Deviation 45.7 fL (36.4-46.3) 06/21/19 18:34 RDW Coeff of Estrellita 12.9 % (11.5-14.5) 06/21/19 18:34 Plt Count 376 K/uL (130-400) 06/21/19 18:34 MPV 9.5 fL (7.4-10.4) 06/21/19 18:34 Immature Gran % (Auto) 0.1 % 06/21/19 18:34 Neut % (Auto) 83.0 % 06/21/19 18:34 Lymph % (Auto) 9.8 % 06/21/19 18:34 [place] % (Auto) 6.3 % 06/21/19 18:34 Eos % (Auto) 0.4 % 06/21/19 18:34 Baso % (Auto) 0.4 % 06/21/19 18:34 Immature Gran # (Auto) 0.01 K/uL (0.00-0.02) 06/21/19 18:34 Neut # (Auto) 8.54 K/uL (1.4-6.5) H 06/21/19 18:34 Lymph # (Auto) 1.01 K/uL (1.2-3.4) L 06/21/19 18:34 [place] # (Auto) 0.65 K/uL (0.11-0.59) H 06/21/19 18:34 Eos # (Auto) 0.04 K/uL (0-0.5) 06/21/19 18:34 Baso # (Auto) 0.04 K/uL (0-0.2) 06/21/19 18:34 Sodium 141 mmol/L (136-145) 06/21/19 18:34 Potassium 3.9 mmol/L (3.5-5.1) 06/21/19 18:34 Chloride 106 mmol/L (98-107) 06/21/19 18:34 Carbon Dioxide 29 mmol/L (21-32) 06/21/19 18:34 Anion Gap 6.0 (3-11) 06/21/19 18:34 BUN 16 mg/dl (7-18) 06/21/19 18:34 Creatinine 0.71 mg/dl (0.6-1.2) 06/21/19 18:34 Est Cr Clr Drug Dosing 56.9 ml/min 06/21/19 18:34 Est GFR ( Amer) 93.2 06/21/19 18:34 Est GFR (Non-Af Amer) 80.4 06/21/19 18:34 BUN/Creatinine Ratio 22.7 (10-20) H 06/21/19 18:34 Glucose 133 mg/dl (70-99) H 06/21/19 18:34 Calcium 9.9 mg/dl (8.5-10.1) 06/21/19 18:34 Total Bilirubin 0.4 mg/dl (0.2-1) 06/21/19 18:34 AST 29 U/L (15-37) 06/21/19 18:34 ALT 40 U/L (12-78) 06/21/19 18:34 Alkaline Phosphatase 77 U/L (45-117) 06/21/19 18:34 Total Protein 7.5 gm/dl (6.4-8.2) 06/21/19 18:34 Albumin 3.8 gm/dl (3.4-5.0) 06/21/19 18:34 Globulin 3.7 gm/dl (2.5-4.0) 06/21/19 18:34 Albumin/Globulin Ratio 1.0 (0.9-2) 06/21/19 18:34 Lipase 90083 U/L (73-393) H 06/21/19 18:34 Code Status & VTE Plan VTE Prophylaxis Plan VTE Prophylaxis will be ordered: Yes PG Care Time/CCT Total # of Minutes Spent Total Time Spent: 65 Total Time Spent with Patient: Total time spent is greater than 50% in coordination of care (as documented) at patient's floor/unit and/or counseling patient:
[2019-06-21] MEDS ORDERED: HydrALAZINE HCL 20 MG/ML VIAL IV PRN (23:37)
[2019-06-21] MEDS ORDERED: FAMOTIDINE 10 MG/ML 2ML VIAL IV SCH (23:37)
[2019-06-21] MEDS ORDERED: LORazepam 0.5 MG/1 ML VIAL IV PRN (23:37)
[2019-06-22] MEDS: FAMOTIDINE 20 MG in SYRINGE 3 ML IV SCH ×3 (00:43→09:59)
[2019-06-22] MEDS: LACTATED RINGER'S 1,000 ML IV SCH ×3 (00:43→11:33)
[2019-06-22 05:32] LABS: Hematocrit (blood only) 40.1 % (37-47); Hemoglobin 12.8 g/dL (12.0-16.0); Mean Corpuscular Hemoglobin 31.6 pg (25-34); Mean Corpuscular Hgb Conc 31.9 g/dL (32-36); Mean Platelet Volume 9.5 fL (7.4-10.4); Platelet Count 321 K/uL (130-400); RDW Coefficient of Variation 13.2 % (11.5-14.5); RDW Standard Deviation 47.7 fL (36.4-46.3); Red Blood Count 4.05 M/uL (4.2-5.4); White Blood Count 7.81 K/uL (4.8-10.8)
[2019-06-22 05:55] LABS: BUN Creatinine Ratio 26.2 (10-20); Calcium 8.7 mg/dl (8.5-10.1); Creatinine Clr Calc Pharmacy 82.3 ml/min; Est GFR (African American) 106.6; Potassium 4.1 mmol/L (3.5-5.1)
[2019-06-22 07:55] VITALS: O2SAT 97
[2019-06-22] MEDS ORDERED: ENOXAPARIN INJ 40 MG/0.4 ML SYR SQ SCH (09:00)
[2019-06-22] MEDS: LEVOTHYROXINE SODIUM 88 MCG in SYRINGE 0 ML IV SCH ×2 (09:19→10:00)
--- NOTE | 2019-06-22 14:18 | Gastrointestinal Consultation ---
Date of Consultation June 22, 2019 Assessment & Plan (1) Acute pancreatitis: 5th episode, recurrent. Etiology is unclear, must consider IPMN given her history, possible autoimmune pancreatitis, and malignancy. No unintentional weight loss recently. Recs: --autoimmune pancreatitis serological workup was ordered by me including IgG4, AMA, ASMA, etc. --diet as tolerated, supportive care, pain control prn --she should follow up with Dr. Wen of [facility] for an outpatient Endoscopic ultrasound to further evaluate her recurrent pancreatitis, and the possbility of an IPMN. Thank you for allowing me to participate in the care of this patient History of Present Illness Attending Physician: Ho Ibarra, DO 79 yo female with hx hypothyroidism here for recurrent pancreatitis. She notes she has had 4 episodes of pancreatitis prior to this one over the last 3 years. She noted epigastric abdominal pains yesterday which brought her in, CT showed findings c/w acute pancreatitis. She was treated with aggressive hydration and today feels much better, says she is without abdominal pains. No n/v, diarrhea, fevers currently. Denies all other symptoms, and she is tolerating her diet at this time. Regarding her pancreatitis, she has been worked up for this as an outpatient both at [facility] and [facility], most recent MRCP in 10/2018 was unremarkable. She does not drink significant alcohol, never smoker, no evidence of cholelithiasis on imaging, not on any meds that are known to cause pancreatitis. However there was a question of a side branch IPMN in the past, which certainly could cause pancreatitis. Allergies Allergy/AdvReac Type Severity Reaction Status Date / Time Iodinated Contrast Media Allergy Unknown RASH Verified 04/18/19 16:14 latex Allergy Unknown HIVES Verified 04/18/19 16:14 bee venom protein (honey bee) Allergy Unknown Verified 04/18/19 16:14 Home Medications Home Medications Medication Instructions Recorded Confirmed Type cyanocobalamin (vit B-12) ER 1,000 1,000 mcg PO QAM tab 02/27/19 06/21/19 History mcg tablet,extended release ketotifen 0.025 % (0.035 %) eye 1 drp OPB DIRECTED PRN ml 02/27/19 06/21/19 History drops cranberry fruit concentrate 250 mg 250 mg PO QAM tab 03/15/19 06/21/19 History chewable tablet cyclosporine 0.05 % eye drops in a 1 drp OPB Q12H 03/26/19 06/21/19 History dropperette epinephrine 0.3 mg/0.3 mL 0.3 mg IM DIRECTED PRN 03/26/19 06/21/19 History injection, auto-injector melatonin 3 mg tablet 3 mg PO HS 03/26/19 06/21/19 History multivitamin with minerals tablet 1 tab PO QAM 03/26/19 06/21/19 History levothyroxine [Synthroid] 88 mcg PO QAM 06/21/19 06/21/19 History Patient History Medical History Acute pancreatitis (Acute) Hypertension Microscopic hematuria Hypothyroidism (Chronic) Recurrent pancreatitis Hiatal hernia (Acute) Arthritis Lyme disease Surgical History S/P bunionectomy right foot X 2 S/P tonsillectomy and adenoidectomy age 14 years Family History Mother Emphysema lung Father Myocardial infarction Hypertension Other No significant family history Social History Preferred Language: Georgian Communication Ability: Effective 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 Beliefs That Will Affect Care: None marital status: Current Living Situation: Spouse current occupational status: 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 Feels Safe at Home: Yes Smoking Status: Never smoker Hx Alcohol Use: No Hx Substance Use: No Seatbelt Use: always Review of Systems Constitutional: no fever, no chills and no weight loss Eyes: as per Subjective / HPI Ear, Nose, Mouth, Throat: as per Subjective / HPI Respiratory: no dyspnea and no dyspnea on exertion Cardiovascular: no chest pain and no palpitations Gastrointestinal: as per Subjective / HPI Musculoskeletal: no joint pain and no swelling Integumentary: no rash and no lesions Neurologic: no numbness and no paresthesia Psychiatric: no depression and no anxiety Endocrine: no fatigue Hematologic / Lymphatic: no easy bleeding and no easy bruising Physical Exam Constitutional: WD/WN, vitals as above Eyes: EOM intact bilaterally Neck: normal visual inspection Respiratory: normal respiratory effort, lungs clear to auscultation Cardiovascular: RRR, no murmur, no edema Gastrointestinal (Abdomen): Inspection/Auscultation: abdomen normal to inspection; abdomen not distended Percussion/Palpation: abdomen soft; abdomen nontender and no hepatosplenomegaly Musculoskeletal: Extremities: no cyanosis Gait: normal gait Skin: no rashes, warm and dry Neurologic: moves all extremities Psychiatric: A+Ox3, euthymic affect Results & Data Vital Signs (Past 12 Hours) Vital Signs Temp Pulse Pulse Resp BP Pulse Ox 06/22/19 07:49 60 153/80 H 06/22/19 07:20 36.4 C L 60 16 162/82 H 97 PG Care Time/CCT Total # of Minutes Spent Total Time Spent with Patient: Total time spent is greater than 50% in coordination of care (as documented) at patient's floor/unit and/or counseling patient: (1) Acute pancreatitis Acute pancreatitis complication: unspecified Pancreatitis type: other Qualified Code(s): K85.80 - Other acute pancreatitis without necrosis or infection
[2019-06-22 15:11] VITALS: PULSE 57; TEMP 98.1
[2019-06-22 18:15] VITALS: BP 153/86
--- NOTE | 2019-06-22 21:10 | Discharge Summary ---
Date of Service June 22, 2019 Admission HPI Per Admitting Provider 79 y/o female presented to the ED with acute onset of constant epigastric pain of 5 hours duration. She has had multiple episodes of pancreatitis in the past and felt that this is similar to this condition. Symptoms began 1 hour after meal. The pain was associated with nausea and vomiting ( small amount). No F/C, cough SOB, chest pain, hematemesis, or diarrhea. . Primary Care Provider: Rob Mayers MD Admission Exam Per Admitting Provider General- adult female, NAD Head- atraumatic Eyes- PERRL, EOMI, anicteric ENT- oropharynx clear Neck- supple, no JVD, no adenopathy, no thyromegaly. Lungs- CTA b/l No R/R/W Heart- regular rhythm; no murmur, no gallop, no rub appreciated Abdomen- normal bowel sounds, soft, + epigastric tenderness, No rebound or guarding. Extremities- no pretibial edema, no calf tenderness; peripheral pulses intact Neuro- alert, oriented x 3; PERRL, EOMI; CN's II-XII grossly intact, non-focal. Skin- warm & dry Principal Diagnosis Acute on chronic pancreatitis HTN Sicca Discharge Exam Constitutional: sitting in chair, NAD Neuro: Alert and oriented CV: RRR, s1 s2 nl, no m/r/g Abd: nTTP, +BS Skin: hoang over right clavicle, varicose vein left lower leg Ext: nTTP, negative Homans Discharge Data Allergies Allergy/AdvReac Type Severity Reaction Status Date / Time Iodinated Contrast Media Allergy Unknown RASH Verified 04/18/19 16:14 latex Allergy Unknown HIVES Verified 04/18/19 16:14 bee venom protein (honey bee) Allergy Unknown Verified 04/18/19 16:14 Consultations 06/21/19 20:06 ED Decision to Admit Stat 06/21/19 23:37 Consult Gastroenterology Routine Hospital Course (1) Acute pancreatitis: 79 yo F with history significant for recurrent pancreatitis admitted with acute pancreatitis. She has never consumed alcohol and does not have hypertriglyceridemia; cholec ystectomy has been considered in the past; symptoms resolved, but would benefit from further outpatient evaluation of the cause of her recurrent pancreatitis. Acute recurrent pancreatitis - Patient presented with signs and symptoms consistent with prior episodes of pancreatitis and found to have an elevated lipase consistent with acute pancreatitis. - Prior evaluation has been unrevealing including prior MRCPs, lipid panel, no history of ETOH consumption. - Started on aggressive IVF resuscitation which was discontinued the next morning as she was tolerating clear liquids then full liquids. Did not require pain medication on the floor. - lipase decreased from 17,124 to 5,929 on day of admission. - GI Recs: --autoimmune pancreatitis serological workup was ordered including IgG4, AMA, ASMA, --diet as tolerated, supportive care, pain control prn --follow up with Dr. Wen of [facility] for an outpatient Endoscopic ultrasound to further evaluate her recurrent pancreatitis, and the possibility of an IPMN. Elevated blood pressures - BP up to 153/86 while inpatient, but asymptomatic - not on anti-hypertensives as an outpatient - elevated BPs likely situational. Monitor as an outpatient. Other chronic issues were stable and home medications continued. (2) DVT prophylaxis: (3) Sicca: (4) Poorly-controlled hypertension: (5) Vitamin D deficiency: (6) Vitamin B12 deficiency: (7) Peripheral neuropathy: (8) Insomnia: (9) Hypercholesterolemia: (10) Abdominal pain: Total Time Total Time Spent Total Time Spent (In Minutes): Discharge Plan Discharge Items Patient Disposition: Home - Self-Care Reason For Visit: PANCREATITIS Discharge Diagnosis: acute pancreatitis Activity: Per Instructions section Non-emergency contact: Primary Care Provider Call non-emergency contact if: your pain is worsening Follow-up/Referrals: Rob Mayers MD [Primary Care Provider] - Diet: Low Fat Addtl Attending Provider Instructions: You came to the hospital with acute pancreatitis, this has happened previously and seems to have happened after eating lasagna this time, without any other clear cause. You were not able to eat initially during your hospitalization. We managed your pain while you where here in the hospital with Morphine. We placed you on IV fluids. Over Monday we increased your diet from clear liquids for lunch and then full liquids for dinner. You were able to eat without nausea or pain. Your Lipase which is an enzyme from you pancreas was initially increased but was seen to be decreasing while you were in the emergency room. We would like for you to slowly increase your diet from full liquids, such as broth and Jello to a more full diet slowly over the next few days. We want you to continue to avoid fatty food after that. You will be going home with no changes to your home medication. You were given pain medication initially while in the hospital for your pain. you will not be going home on any pain medication, if you are having continued pain we want you to be evaluated further. It will be important to follow up with your primary care provider to ensure that you are continuing to look into the cause of your recurrent episodes of pancreatitis. Return precautions include if you are having increased pain, or difficulty with nausea and keeping food down. Pending Studies at Discharge: No Stand-Alone Forms: Call Back Authorization, [facility], Smoking Cessation Medications and DC Order Prescriptions: Continued cyanocobalamin (vitamin B-12) 1,000 mcg tablet extended release 1,000 mcg PO QAM RF: 0 ketotifen fumarate 0.025 % (0.035 %) drops 1 drp OPB DIRECTED PRN (Reason: Dry Eye(S)) RF: 0 Azo Cranberry 250 mg tablet,chewable 250 mg PO QAM RF: 0 Restasis 0.05 % dropperette 1 drp OPB Q12H RF: 0 epinephrine [EpiPen] 0.3 mg/0.3 mL auto-injector 0.3 mg IM DIRECTED PRN (Reason: Allergic Reaction) RF: 0 melatonin 3 mg tablet 3 mg PO HS RF: 0 levothyroxine [Synthroid] 88 mcg tablet 88 mcg PO QAM RF: 0 multivitamin with minerals tablet 1 tab PO QAM RF: 0 Discharge Orders: Discharge Order (Routine); Ordered 06/22/19 Ordered By: Sreekanth Yates/Other Patient Handouts: Pancreatitis Acute Dc Admission Data Admit Date/Time: 06/21/19 22:46 Attending Provider: Ho Ibarra Admit Provider: Bubba Wolf Primary Care Provider: Rob Mayers Other Providers: Bubba Wolf ; Stevenson Ma Other Interventions: Discharge Summary Assessment (RN) Last Done: 06/22/19 18:12 DC Date/Time DO NOT enter until pt leaves facility: 06/22/19 18:40 Supervising Physician Co-Signing Physician Notes Patient seen and examined with PGY-1 Dr. Parker. Agree with history, exam findings, assessment and plan of care as outlined. In brief, Ms. Vidaels is an 79 year old female with history of recurrent pancreatitis with increased frequency over the last year admitted with an episode of acute pancreatitis. Received morphine in the ED with good relief of her abdominal pain. No nausea or vomiting. Did not require additional pain medication on the day of discharge. Tolerated clear liquids then full liquids. Lipase trended down from 17K to 6k on day of discharge. She was seen by GI during her stay. Autoimmune labs ordered. Should follow up with Dr. Wen ([facility]) for EUS. Blood pressures were slightly elevated here, but she remained asymptomatic. Can monitor this as an outpatient and will defer addition of anti-hypertensives to PCP. Other chronic conditions were stable and home medications continued. I personally spent 35 minutes discharge planning for this patient. Resident Activity Tracking Resident Involvement: Resident Care Provided Care Provided: Adult Hospital Medicine
== END 2019-06-22 18:40 | disposition home or self-care (01) | DRG 440 ==
LOC: ED 17:38 → SUATTDRO 22:46 → 3E 22:46

== ENCOUNTER 2019-07-26 17:03 | Inpatient (IN) ==
[2019-07-26] MEDS ORDERED: ONDANSETRON INJ 2 MG/ML 2 ML VIAL IV STA ×2 (17:49→18:35)
[2019-07-26 17:54] LABS: Basophils # (auto) 0.06 K/uL (0-0.2); Basophils % (auto) 0.7 %; Eosinophils # (auto) 0.04 K/uL (0-0.5); Eosinophils % (auto) 0.5 %; Hematocrit (blood only) 47.8 % (37-47); Hemoglobin 16.2 g/dL (12.0-16.0); Immature Granulocytes # (auto) 0.02 K/uL (0.00-0.02); Immature Granulocytes % (auto) 0.2 %; Lymphocytes # (auto) 1.15 K/uL (1.2-3.4); Mean Corpuscular Hemoglobin 33.2 pg (25-34); Mean Corpuscular Hgb Conc 33.9 g/dL (32-36); Mean Platelet Volume 9.5 fL (7.4-10.4); Monocytes # (auto) 0.53 K/uL (0.11-0.59); Monocytes % (auto) 6.4 %; Neutrophils # (auto) 6.44 K/uL (1.4-6.5); Neutrophils % (auto) 78.2 %; Platelet Count 350 K/uL (130-400); RDW Coefficient of Variation 13.3 % (11.5-14.5); RDW Standard Deviation 47.7 fL (36.4-46.3); Red Blood Count 4.88 M/uL (4.2-5.4); White Blood Count 8.24 K/uL (4.8-10.8)
[2019-07-26 18:11] LABS: Alanine Aminotransferase 36 U/L (12-78); Albumin Level 3.9 gm/dl (3.4-5.0); Aspartate Aminotransferase 24 U/L (15-37); BUN Creatinine Ratio 25.4 (10-20); Blood Urea Nitrogen 16 mg/dl (7-18); Calcium 9.8 mg/dl (8.5-10.1); Carbon Dioxide 31 mmol/L (21-32); Chloride 105 mmol/L (98-107); Est GFR (African American) 98.7; Est GFR (Non-African American) 85.2; Glucose 132 mg/dl (70-99); Sodium 141 mmol/L (136-145)
[2019-07-26 18:14] LABS: Albumin Globulin Ratio 0.9 (0.9-2); Alkaline Phosphatase 80 U/L (45-117); Bilirubin,Total 0.4 mg/dl (0.2-1); Globulin 4.2 gm/dl (2.5-4.0); Lipase 17157 U/L (73-393); Total Protein 8.1 gm/dl (6.4-8.2)
--- NOTE | 2019-07-26 18:16 | XRay Report ---
XR KUB/Abdomen 1 view CLINICAL HISTORY: 79 years-old Female presenting with vomiting. TECHNIQUE: Single supine view of the abdomen was obtained. COMPARISON: CT from 03/13/2019. FINDINGS: Nonobstructive bowel gas pattern. No gross pneumoperitoneum. Allowing for bowel gas and stool, no calcifications to suggest nephrolithiasis. Calcifications in the pelvis may relate to degenerated fibroids. Degenerative changes of the spine. Moderate right and mild left degenerative changes of the hips. Sanjay cified granuloma at the left lung base. IMPRESSION: 1. No acute intra-abdominal pathology. Electronically signed by: Soham Kevin M.D. 07/26/2019 6:14 PM
[2019-07-26] MEDS ORDERED: MoRPHine SULFATE 10 MG/ML CARP/VIAL IV STA (18:35)
[2019-07-26] MEDS ORDERED: MoRPHine SULFATE 2 MG/ML CARP ONE (18:46)
[2019-07-26] MEDS ORDERED: MoRPHine SULFATE 4 MG/ML 1 ML CARP\\VIAL ONE (18:46)
[2019-07-26] MEDS ORDERED: DiphenhydrAMINE HCL 50 MG/ML VIAL IV STA (18:56)
[2019-07-26] MEDS ORDERED: IOVERSOL 100ml IV PRN (19:40)
[2019-07-26] MEDS ORDERED: OXYCODONE HCL IR 5 MG TAB (IMMEDIATE RELEASE) PO STA (19:48)
[2019-07-26] MEDS ORDERED: SODIUM CHLORIDE 0.9% 1000ML 500 ML IV ONE (19:48)
--- NOTE | 2019-07-26 20:01 | CT Scan Report ---
CT abd pelvis IV con only CLINICAL HISTORY: 79 years-old Female presenting with generalized abdominal pain, n/v, h/o pancreatit is. TECHNIQUE: Multidetector CT of the abdomen and pelvis was performed after the administration of intra venous contrast. IV contrast: Optiray 320. One or more dose lowering techniques were used consistent with the principles of ALARA (as low as reasonably achievable), including automatic exposure control, mA or kV adjustment to individual patient size, and/or use of iterative reconstruction. COMPARISON: 03/13/2019. CT DOSE (mGy.cm): The estimated cumulative dose is 805.75 mGycm. FINDINGS: Visitor Services Representative topogram: Unremarkable. Lung bases: Multichamber enlargement of the heart. Coronary artery and aortic valve calcification. No pericardial or pleural effusion. Few calcified granuloma and calcified left hilar lymph nodes. Isaac ediastinal compressive atelectasis related to the presence of the large hiatal hernia. Liver: Normal morphology. Well-defined hypodense lesion in the anterior left hepatic lobe likely hepa tic cyst. Patent hepatic vasculature. Biliary: No intrahepatic or extrahepatic biliary ductal dilatation. Normal gallbladder. Pancreas: Fat infiltration and fluid along the pancreatic tail. Spleen: Punctate calcifications in the spleen suggest a history of granulomatous disease. Adrenal glands: Normal. Kidneys and ureters: Several small cysts noted as well as suspected prominent parapelvic cysts. No hy dronephrosis. Due to the early excretion of contrast, limited evaluation for nephrolithiasis. Ureters nondistended. Bladder: Incompletely evaluated secondary to underdistention. Pelvic organs: Fibroid uterus. Ovaries grossly normal. Bowel: Mild diverticulosis of the proximal to mid sigmoid colon without wall thickening or pericoloni c inflammatory change in this region. Less extensive diverticulosis of the descending colon. Inflamma tory changes surround the splenic flexure of the colon without evidence of wall thickening. This appe ars to be extension of inflammatory changes imaging of the pancreatic tail. No resultant stenosis of the splenic flexure. Diverticulosis also evident in the right colon. The appendix is normal. No bowel obstruction. Large paraesophageal hiatal hernia. There is distention of the intra-abdominal portion of the stomach without convincing evidence of obstruction. Peritoneal cavity: Trace fluid in the left upper quadrant. Significant retroperitoneal fluid along th e pancreatic tail extending into the splenorenal ligament and the left anterior pararenal space. No f ree intraperitoneal gas. Lymph nodes: No enlarged lymph nodes in the abdomen or pelvis. Vasculature: Atherosclerosis of the normal caliber abdominal aorta. IVC patent. Abdominal wall: Fat-containing umbilical hernia. Mild body wall edema. Musculoskeletal: Degenerative changes of the spine. Degenerative changes of the bilateral hips. IMPRESSION: 1. Evidence of interstitial edematous pancreatitis with extensive inflammatory changes extending fro m the pancreatic tail into the left upper quadrant. No evidence of splenic vessel thrombosis or aneur ysm. No evidence of wall thickening or stenosis of the splenic flexure the colon. No acute peripancre atic fluid collection. No gross evidence of necrosis. 2. No radiopaque gallstones are evident. 3. Diverticulosis coli with multifocal involvement of the colon. No evidence of diverticulitis. 4. Large paraesophageal hiatal hernia. Electronically signed by: Soham Kevin M.D. 07/26/2019 7:59 PM
--- NOTE | 2019-07-26 20:47 | Emergency Department Note ---
Entered by Miri Mckinnon acting as a scribe for Xavier Benton MD History of Present Illness General Chief complaint: Abdominal Pain Stated complaint: PANCREATITIS,SPITTING UP BLOOD,ABD PAIN Time Seen by Provider: 07/26/19 17:48 Source: patient History of Present Illness Onset (ago): hour(s) (3.5) Location: abdomen Pain Consistency: + constant Maximum Pain Intensity: 10 Quality: + other (achy) Associated symptoms: + denies other symptoms (blood in urine or stool) and + nausea/vomiting The patient is a 79 year old female who presents to the Emergency Room with complaints of constant achy abdominal pain beginning 3.5 hours ago. The patient reports constant vomiting. The patient denies blood in her urine or stool. She denies fever, chills, and recent trauma. The patient states it is likely a flare-up of her pancreatitis. She denies blood thinners. Home Medications Home Medications Medication Instructions Recorded Confirmed Type cyanocobalamin (vitamin B-12) 1,000 mcg PO QAM tab 02/27/19 07/26/19 History 1,000 mcg tablet,extended release ketotifen fumarate 0.025 % (0.035 1 drp OPB DIRECTED PRN ml 02/27/1907/26 History %) eye drops cranberry fruit concentrate 250 mg 250 mg PO QAM tab 03/15/19 07/26/19 History chewable tablet cyclosporine 0.05 % eye drops in a 1 drp OPB Q12H 03/26/19 07/26/19 History dropperette epinephrine 0.3 mg/0.3 mL 0.3 mg IM DIRECTED PRN 03/26/19 07/26/19 History injection, auto-injector melatonin 3 mg tablet 3 mg PO HS 03/26/19 07/26/19 History multivitamin with minerals 1 tab PO QAM 03/26/19 07/26/19 History levothyroxine [Synthroid] 88 mcg PO QAM 06/21/19 07/26/19 History Allergies Allergy/AdvReac Type Severity Reaction Status Date / Time Iodinated Contrast Media Allergy Unknown RASH Verified 07/26/19 20:02 latex Allergy Unknown HIVES Verified 07/26/19 20:02 bee venom protein (honey bee) Allergy Unknown Verified 07/26/19 20:04 Past Med/Surg History Medical History Acute pancreatitis Arthritis Hiatal hernia (Acute) Hypertension Hypothyroidism (Chronic) Lyme disease Microscopic hematuria Recurrent pancreatitis Surgical History S/P bunionectomy right foot X 2 S/P tonsillectomy and adenoidectomy age 14 years Family History Mother Emphysema lung Father Myocardial infarction Hypertension Other No significant family history Social History Preferred Language: Indonesian Communication Ability: Effective 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 and A total of 10 systems reviewed and were otherwise negative Physical Exam Vital Signs Vital Signs - 24 hr 07/26/19 17:12 07/26/19 18:57 07/26/19 19:28 Temperature 36.7 C Temperature Source Oral Pulse Rate 70 Pulse Rate [Bilateral Apical] 87 81 Respiratory Rate 22 18 20 Respiratory Depth Normal Blood Pressure 194/112 H Blood Pressure [Right Arm] 191/105 H 178/92 H Blood Pressure Mean 139 Blood Pressure Mean [Right Arm] 133 120 Blood Pressure Position Sitting Pulse Oximetry 96 95 94 Oxygen Delivery Method Room Air Room Air Sepsis Recent Fever Within 48 Hours No Sepsis Action Taken by Nursing No Action Required 07/26/19 20:02 Temperature Temperature Source Pulse Rate Pulse Rate [Bilateral Apical] 87 Respiratory Rate 18 Respiratory Depth Blood Pressure Blood Pressure [Right Arm] 187/100 H Blood Pressure Mean Blood Pressure Mean [Right Arm] 129 Blood Pressure Position Pulse Oximetry 94 Oxygen Delivery Method Sepsis Recent Fever Within 48 Hours Sepsis Action Taken by Nursing GENERAL: Well nourished, non-toxic. Patient is in pain. Moderate distress. EYE EXAM: Normal conjunctiva. PERRL, no anisocoria and EOM's grossly intact w/o pain. OROPHARYNX: Moist mucus membranes. Grossly normal dentition. NECK: Supple, no nuchal rigidity, no adenopathy, non-tender. No signs of meningismus. LUNGS: Clear to auscultation. Normal chest wall mechanics. HEART: NSR, no MRG. ABDOMEN: Diffuse abdominal pain, worst in epigastric region. Abdomen soft, normo-active bowel sounds, no masses, no rebound or guarding. BACK: No CVA TTP. SKIN: No rashes and no bruising. UPPER EXTREMITIES: Upper extremities are grossly normal. NEURO EXAM: A&O x3, cranial nerves II-XII grossly intact, normal speech, moves all 4 extremities on command w/o issue. Course Course 175: Past medical records reviewed. The patient was evaluated in room C09. A complete history and physical exam was performed. Patient was placed on quality assurance monitor final. 1999: Upon reevaluation, I discussed findings and results with the patient. She verbalized agreement of the treatment plan. I spoke with Dr. Giraldo of the [facility] Hospitalist Service. The patient will be evaluated for further management and care. Administered Medications Ioversol (Optiray 320 100ml) 94 ml IV ONCE PRN PRN Reason: Interaction Checking Stop: 07/30/19 19:39 Last Admin: 07/26/19 19:41 Dose: 94 ml Documented by: [id number] Discontinued Medications Diphenhydramine HCl (Benadryl) 25 mg IV NOW STA Stop: 07/26/19 18:57 Last Admin: 07/26/19 19:02 Dose: 25 mg Documented by: [id number] Sodium Chloride (Nss 1000ml) 500 mls @ 999 mls/hr IV .Q31M ONE Stop: 07/26/19 20:18 Last Admin: 07/26/19 19:57 Dose: 999 mls/hr Documented by: [id number] Morphine Sulfate (Morphine Sulfate) 6 mg IV NOW STA Stop: 07/26/19 18:36 Last Admin: 07/26/19 19:02 Dose: Not Given Documented by: [id number] Morphine Sulfate (Morphine Sulfate) Confirm Administered Dose 4 mg .ROUTE .STK- MED ONE Stop: 07/26/19 18:47 Last Admin: 07/26/19 18:52 Dose: 4 mg Documented by: [id number] Morphine Sulfate (Morphine Sulfate) Confirm Administered Dose 2 mg .ROUTE .STK- MED ONE Stop: 07/26/19 18:47 Last Admin: 07/26/19 18:52 Dose: 2 mg Documented by: [id number] Ondansetron HCl (Zofran) 4 mg IV NOW STA Stop: 07/26/19 17:50 Last Admin: 07/26/19 18:14 Dose: 4 mg Documented by: [id number] Ondansetron HCl (Zofran) 4 mg IV NOW STA Stop: 07/26/19 18:36 Last Admin: 07/26/19 18:56 Dose: 4 mg Documented by: [id number] Oxycodone HCl (Roxicodone Immediate Rel) 5 mg PO NOW STA Stop: 07/26/19 19:49 Last Admin: 07/26/19 19:57 Dose: 5 mg Documented by: [id number] Medical Decision Making Differential Diagnosis Differential diagnoses includes but is not limited to gastritis, peptic ulcer disease, GERD, gallbladder disease, pancreatitis, small bowel obstruction, acute coronary syndrome, pericarditis, ischemic bowel, irritable bowel disease, irritable bowel syndrome, appendicitis, diverticulitis, malignancy, hernia, ur inary tract infection, torsion, /ectopic , perforation, trauma, infectious. Medical Records Attestation: I reviewed the patient's medical records. Home Medications Current Medication List: was personally reviewed by me Laboratory Data Attestation: I reviewed the patient's lab results. Result diagrams: 07/26/19 17:35 07/26/19 17:35 Lab Results 07/26/19 07/26/19 Range/Units 17:35 17:35 WBC 8.24 (4.8-10.8) K/uL RBC 4.88 (4.2-5.4) M/uL Hgb 16.2 H (12.0-16.0) g/dL Hct 47.8 H (37-47) % MCV 98.0 (80-100) fL MCH 33.2 (25-34) pg MCHC 33.9 (32-36) g/dL RDW Std Deviation 47.7 H (36.4-46.3) fL RDW Coeff of Estrellita 13.3 (11.5-14.5) % Plt Count 350 (130-400) K/uL MPV 9.5 (7.4-10.4) fL Immature Gran % (Auto) 0.2 % Neut % (Auto) 78.2 % Lymph % (Auto) 14.0 % [place] % (Auto) 6.4 % Eos % (Auto) 0.5 % Baso % (Auto) 0.7 % Immature Gran # (Auto) 0.02 (0.00-0.02) K/uL Neut # (Auto) 6.44 (1.4-6.5) K/uL Lymph # (Auto) 1.15 L (1.2-3.4) K/uL [place] # (Auto) 0.53 (0.11-0.59) K/uL Eos # (Auto) 0.04 (0-0.5) K/uL Baso # (Auto) 0.06 (0-0.2) K/uL Sodium 141 (136-145) mmol/L Potassium 4.0 (3.5-5.1) mmol/L Chloride 105 (98-107) mmol/L Carbon Dioxide 31 (21-32) mmol/L Anion Gap 5.0 (3-11) BUN 16 (7-18) mg/dl Creatinine 0.62 (0.6-1.2) mg/dl Est Cr Clr Drug Dosing Not Reportable Est GFR ( Amer) 98.7 Est GFR (Non-Af Amer) 85.2 BUN/Creatinine Ratio 25.4 H (10-20) Glucose 132 H (70-99) mg/dl Calcium 9.8 (8.5-10.1) mg/dl Total Bilirubin 0.4 (0.2-1) mg/dl AST 24 (15-37) U/L ALT 36 (12-78) U/L Alkaline Phosphatase 80 (45-117) U/L Total Protein 8.1 (6.4-8.2) gm/dl Albumin 3.9 (3.4-5.0) gm/dl Globulin 4.2 H (2.5-4.0) gm/dl Albumin/Globulin Ratio 0.9 (0.9-2) Lipase 63239 H (73-393) U/L Imaging Data Radiologist's Impression: Radiology results as stated below per my review and the radiologist's interpretation: XR KUB/Abdomen 1 view CLINICAL HISTORY: 79 years-old Female presenting with vomiting. TECHNIQUE: Single supine view of the abdomen was obtained. COMPARISON: CT from 03/13/2019. FINDINGS: Nonobstructive bowel gas pattern. No gross pneumoperitoneum. Allowing for bowel gas and stool, no calcifications to suggest nephrolithiasis. Calcifications in the pelvis may relate to degenerated fibroids. Degenerative changes of the spine. Moderate right and mild left degenerative changes of the hips. Calcified granuloma at the left lung base. IMPRESSION: 1. No acute intra-abdominal pathology. Electronically signed by: Soham Kevin M.D. 07/26/2019 6:[address] abd pelvis IV con only CLINICAL HISTORY: 79 years-old Female presenting with generalized abdominal pain, n/v, h/o pancreatitis. TECHNIQUE: Multidetector CT of the abdomen and pelvis was performed after the administration of intravenous contrast. IV contrast: Optiray 320. One or more dose lowering techniques were used consistent with the principles of ALARA (as low as reasonably achievable), including automatic exposure control, mA or kV adjustment to individual patient size, and/or use of iterative reconstruction. COMPARISON: 03/13/2019. CT DOSE (mGy.cm): The estimated cumulative dose is 805.75 mGycm. FINDINGS: [employer] Specialist topogram: Unremarkable. Lung bases: Multichamber enlargement of the heart. Coronary artery and aortic valve calcification. No pericardial or pleural effusion. Few calcified granuloma and calcified left hilar lymph nodes. Paramediastinal compressive atelectasis related to the presence of the large hiatal hernia. Liver: Normal morphology. Well-defined hypodense lesion in the anterior left hepatic lobe likely hepatic cyst. Patent hepatic vasculature. Biliary: No intrahepatic or extrahepatic biliary ductal dilatation. Normal gallb ladder. Pancreas: Fat infiltration and fluid along the pancreatic tail. Spleen: Punctate calcifications in the spleen suggest a history of granulomatous disease. Adrenal glands: Normal. Kidneys and ureters: Several small cysts noted as well as suspected prominent parapelvic cysts. No hydronephrosis. Due to the early excretion of contrast, limited evaluation for nephrolithiasis. Ureters nondistended. Bladder: Incompletely evaluated secondary to underdistention. Pelvic organs: Fibroid uterus. Ovaries grossly normal. Bowel: Mild diverticulosis of the proximal to mid sigmoid colon without wall thickening or pericolonic inflammatory change in this region. Less extensive diverticulosis of the descending colon. Inflammatory changes surround the splenic flexure of the colon without evidence of wall thickening. This appears to be extension of inflammatory changes imaging of the pancreatic tail. No resultant stenosis of the splenic flexure. Diverticulosis also evident in the right colon. The appendix is normal. No bowel obstruction. Large paraesophageal hiatal hernia. There is distention of the intra-abdominal portion of the stomach without convincing evidence of obstruction. Peritoneal cavity: Trace fluid in the left upper quadrant. Significant retroperitoneal fluid along the pancreatic tail extending into the splenorenal ligament and the left anterior pararenal space. No free intraperitoneal gas. Lymph nodes: No enlarged lymph nodes in the abdomen or pelvis. Vasculature: Atherosclerosis of the normal caliber abdominal aorta. IVC patent. Abdominal wall: Fat-containing umbilical hernia. Mild body wall edema. Musculoskeletal: Degenerative changes of the spine. Degenerative changes of the bilateral hips. IMPRESSION: 1. Evidence of interstitial edematous pancreatitis with extensive inflammatory changes extending from the pancreatic tail into the left upper quadrant. No evidence of splenic vessel thrombosis or aneurysm. No evidence of wall thickening or stenosis of the splenic flexure the colon. No acute peripancreatic fluid collection. No gross evidence of necrosis. 2. No radiopaque gallstones are evident. 3. Diverticulosis coli with multifocal involvement of the colon. No evidence of diverticulitis. 4. Large paraesophageal hiatal hernia. Electronically signed by: Soham Kevin M.D. 07/26/2019 7:59 PM Dictated: 07/26/191948 Transcribed: 07/26/191948 Blood Pressure Blood Pressure Findings: Elevated blood pressure Blood Pressure Disposition: further management by hospitalist AIDEN [place]amo Patient was seen in [facility] at the bedside. The patient was complaining of acute onset of abdominal pain beginning at 2 PM. The patient is uncomfortable appearing at the bedside. Blood work was obtained along with a CT abdomen pelvis the patient was given IV fluids given the patient's vomiting and the pa tient also did have some pain and nausea medications. Patient has an elevated hemoglobin which I believe is related to the patient's hemoconcentration and dehydration. The patient had had some slightly blood-tinged vomit. This may be from very small tears. Patient has a normal white count. Kidney function does show likely dehydration and prerenal azotemia. The patient's lipase is elevated 17,000. No LDH was obtained but the patient's Alessia criteria would still be low upon initial evaluation. Given the patient's acute pancreatitis with nausea and vomiting I did speak with the on-call hospitalist who agreed to further evaluate treat the patient. Patient was admitted to the medicine service. Impression & Plan Acute pancreatitis, Hiatal hernia, Abdominal pain, Acute dehydration, Nausea & vomiting Discharge Plan Visit Data Chief Complaint: Abdominal Pain Stated Complaint: PANCREATITIS,SPITTING UP BLOOD,ABD PAIN ED Provider: Xavier Benton Discharge Problem: Acute pancreatitis, Hiatal hernia, Abdominal pain, Acute dehydration, Nausea & vomiting Forms Stand Alone Forms: Call Back Authorization, My [facility] Prescriptions Prescriptions: No Action cyanocobalamin (vitamin B-12) 1,000 mcg tablet extended release 1,000 mcg PO QAM RF: 0 ketotifen fumarate 0.025 % (0.035 %) drops 1 drp OPB DIRECTED PRN (Reason: Dry Eye(S)) RF: 0 Azo Cranberry 250 mg tablet,chewable 250 mg PO QAM RF: 0 Restasis 0.05 % dropperette 1 drp OPB Q12H RF: 0 epinephrine [EpiPen] 0.3 mg/0.3 mL auto-injector 0.3 mg IM DIRECTED PRN (Reason: Allergic Reaction) RF: 0 melatonin 3 mg tablet 3 mg PO HS RF: 0 levothyroxine [Synthroid] 88 mcg tablet 88 mcg PO QAM RF: 0 multivitamin with minerals tablet 1 tab PO QAM RF: 0 Discharge Problem: Acute pancreatitis Qualifiers: Pancreatitis type: idiopathic Acute pancreatitis complication: no infection or necrosis Qualified Code(s): K85.00 - Idiopathic acute pancreatitis without necrosis or infection Abdominal pain Qualifiers: Abdominal location: epigastric Qualified Code(s): R10.13 - Epigastric pain Nausea & vomiting Qualifiers: Vomiting type: unspecified Vomiting Intractability: non-intractable Qualified Code(s): R11.2 - Nausea with vomiting, unspecified The scribe's documentation has been prepared under my direction and personally reviewed by me in its entirety. I confirm that the note above accurately reflects all work, treatment, procedures, and medical decision making performed by me.
--- NOTE | 2019-07-26 21:58 | History & Physical Report ---
Date of Service July 26, 2019 Assessment & Plan (1) Acute pancreatitis: This is an 79-year-old female with past medical history of pancreatitis who presents to the ED with acute onset of constant epigastric pain starting at 2 PM today. This was associated with nonbilious nonbloody vomiting. She states this is similar to her previous episodes of pancreatitis for which she was admitted last about 1 month ago and stayed 1 night. 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 Her BRITTA was positive. Unsure of her follow up, and has apparently been told she should have a cholecystectomy. Sees Dr. Harley in the outpatient setting. Acute pancreatitis, recurrent pancreatitis: ER course: Labs remarkable for hemoconcentration H&H 16.2/47.8, PLT 350, BMP unremarkable w/ exception of moderately incr blood sugar 132. LFTs normal. Lipase 17,157. CT abd/pelvis shows evidence of interstitial edematous pancreatitis with extensive inflammatory changes extending from the pancreatic tail into the left upper quadrant, colon is normal appearing, no acute peripancreatic fluid collection, no gross evidence of necrosis. No evidence of diverticulitis. Large paraesophageal hiatal hernia. In the ER was administered 12 mg morphine and 500ml IVF hydration, zofran, oxycodone, benadryl. Plan: -admit to med/tele -NPO -consult GI -IV pain and antiemetic meds ordered -IVF hydration FEN/GI: NPO / D5 1/2 NSS 20K @ 125ml DVT ppx: SCDs CODE STATUS: FULL as d/w pt and family DISPO: Med tele for bowel rest and fluids Other ongoing medical problems: Hypothyroid - home dose changed to IV dosing while NPO History of Present Illness Chief Complaint: Abdominal pain Primary Care Provider: Rob Mayers MD This is an 79-year-old female with past medical history of pancreatitis who presents to the ED with acute onset of constant epigastric pain starting at 2 PM today. This was associated with nonbilious nonbloody vomiting. She states this is similar to her previous episodes of pancreatitis for which she was admitted last about 1 month ago and stayed 1 night. 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 Her BRITTA was positive. Unsure of her follow up, and has apparently been told she should have a cholecystectomy. Sees Dr. Harley in the outpatient setting. ER course: Labs remarkable for hemoconcentration H&H 16.2/47.8, PLT 350, BMP unremarkable w/ exception of moderately incr blood sugar 132. LFTs normal. Lipase 17,157. CT abd/pelvis shows evidence of interstitial edematous pancreatitis with extensive inflammatory changes extending from the pancreatic tail into the left upper quadrant, colon is normal appearing, no acute peripancreatic fluid collection, no gross evidence of necrosis. No evidence of diverticulitis. Large paraesophageal hiatal hernia. In the ER was administered 12 mg morphine and 500ml IVF hydration, zofran, oxycodone, benadryl. Allergies Allergy/AdvReac Type Severity Reaction Status Date / Time Iodinated Contrast Media Allergy Unknown RASH Verified 07/26/19 20:02 latex Allergy Unknown HIVES Verified 07/26/19 20:02 bee venom protein (honey bee) Allergy Unknown Verified 07/26/19 20:04 Home Medications Home Medications Medication Instructions Recorded Confirmed Type cyanocobalamin (vitamin B-12) 1,000 mcg PO QAM tab 02/27/19 07/26/19 History 1,000 mcg tablet,extended release ketotifen fumarate 0.025 % (0.035 1 drp OPB DIRECTED PRN ml 02/27/19 07/26/19 History %) eye drops cranberry fruit concentrate 250 mg 250 mg PO QAM tab 03/15/19 07/26/19 History chewable tablet cyclosporine 0.05 % eye drops in a 1 drp OPB Q12H 03/26/19 07/26/19 History dropperette epinephrine 0.3 mg/0.3 mL 0.3 mg IM DIRECTED PRN 03/26/19 07/26/19 History injection, auto-injector melatonin 3 mg tablet 3 mg PO HS 03/26/19 07/26/19 History multivitamin with minerals 1 tab PO QAM 03/26/19 07/26/19 History levothyroxine [Synthroid] 88 mcg PO QAM 06/21/19 07/26/19 History Past Med/Surg History Medical History Acute pancreatitis Arthritis Hiatal hernia (Acute) Hypertension Hypothyroidism (Chronic) Lyme disease Microscopic hematuria Recurrent pancreatitis Surgical History S/P bunionectomy right foot X 2 S/P tonsillectomy and adenoidectomy age 14 years Family History Mother Emphysema lung Father Myocardial infarction Hypertension Other No significant family history Social History Preferred Language: Guamanian Communication Ability: Effective Certified Massage Therapist Required: No Beliefs That Will Affect Care: None marital status: Current Living Situation: Spouse current occupational status: 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 Endorses dull epigastric pain, now eased with morphine. Physical Exam Physical Exam: Vitals noted and within normal limits with the exception of m ild HTN. GENERAL: Awake, alert to person, place, and time, nontoxic-appearing, in no distress. HENT: Normocephalic, atraumatic. Mucus membranes appear dry. EYES: Normal conjunctiva. Sclera non-icteric. EOMI. NECK: Supple. Full range of motion. No JVD. RESPIRATORY: Clear to auscultation. Normal work of breathing. CARDIAC: Regular rate, normal rhythm. Extremities warm and well perfused, ABDOMEN: Soft, non-distended. Mild tenderness to palpation in epigastrium. No rebound or guarding. No masses. Bowel sounds are normal. LOWER EXTREMITIES: Inspection of calves reveal equal size bilaterally. They are non-tender. No edema. No discoloration. NEURO: No gross focal motor deficits noted. Sensation in tact. CN II-XII grossly in tact. . SKIN: Rash not present. No jaundice noted. Significant lesions not present. PSYCH: Appropriate mood and affect. Cooperative. is present at the bedside. Exam as done by Kamini Cloud MD, Rn Admissions. Results & Data Vital Signs (Past 12 Hours) Vital Signs Temp Pulse Pulse Resp BP BP Pulse Ox 07/26/19 20:45 82 18 185/88 H 94 07/26/19 20:02 87 18 187/100 H 94 07/26/19 19:28 81 20 178/92 H 94 07/26/19 18:57 87 18 191/105 H 95 07/26/19 17:12 36.7 C 70 22 194/112 H 96 Laboratory Results 07/26/19 07/26/19 Range/Units 17:35 17:35 WBC 8.24 (4.8-10.8) K/uL RBC 4.88 (4.2-5.4) M/uL Hgb 16.2 H (12.0-16.0) g/dL Hct 47.8 H (37-47) % MCV 98.0 (80-100) fL MCH 33.2 (25-34) pg MCHC 33.9 (32-36) g/dL RDW Std Deviation 47.7 H (36.4-46.3) fL RDW Coeff of Estrellita 13.3 (11.5-14.5) % Plt Count 350 (130-400) K/uL MPV 9.5 (7.4-10.4) fL Immature Gran % (Auto) 0.2 % Neut % (Auto) 78.2 % Lymph % (Auto) 14.0 % [place] % (Auto) 6.4 % Eos % (Auto) 0.5 % Baso % (Auto) 0.7 % Immature Gran # (Auto) 0.02 (0.00-0.02) K/uL Neut # (Auto) 6.44 (1.4-6.5) K/uL Lymph # (Auto) 1.15 L (1.2-3.4) K/uL [place] # (Auto) 0.53 (0.11-0.59) K/uL Eos # (Auto) 0.04 (0-0.5) K/uL Baso # (Auto) 0.06 (0-0.2) K/uL Sodium 141 (136-145) mmol/L Potassium 4.0 (3.5-5.1) mmol/L Chloride 105 (98-107) mmol/L Carbon Dioxide 31 (21-32) mmol/L Anion Gap 5.0 (3-11) BUN 16 (7-18) mg/dl Creatinine 0.62 (0.6-1.2) mg/dl Est Cr Clr Drug Dosing Not Reportable Est GFR ( Amer) 98.7 Est GFR (Non-Af Amer) 85.2 BUN/Creatinine Ratio 25.4 H (10-20) Glucose 132 H (70-99) mg/dl Calcium 9.8 (8.5-10.1) mg/dl Total Bilirubin 0.4 (0.2-1) mg/dl AST 24 (15-37) U/L ALT 36 (12-78) U/L Alkaline Phosphatase 80 (45-117) U/L Total Protein 8.1 (6.4-8.2) gm/dl Albumin 3.9 (3.4-5.0) gm/dl Globulin 4.2 H (2.5-4.0) gm/dl Albumin/Globulin Ratio 0.9 (0.9-2) Lipase 26495 H (73-393) U/L Supervising Physician Co-Signing Physician Notes Attending addendum: I have physically seen this patient, have supervised the medical residents activities, and agree with the H&P unless as otherwise noted. Assessment and Plan: Recurrent idiopathic pancreatitis- Positive BRITTA at last admission, suggesting possible autoimmune pancreatitis. Initial lipase 17,157. Will follow serial chemistry and lipase levels. NPO IV fluid rehydration. Zofran 4 mg IV every 6 hours as needed Famotidine 20 mg IV every 12 hours. Morphine 2 mg IV every 4 hours as needed severe pain. Consult gastroenterology. Remainder of orders and notations as noted. Resident Activity Tracking Resident Involvement: Resident Care Provided Care Provided: Adult Hospital Medicine (1) Acute pancreatitis Acute pancreatitis complication: no infection or necrosis Pancreatitis type: idiopathic Qualified Code(s): K85.00 - Idiopathic acute pancreatitis without necrosis or infection
[2019-07-26] MEDS ORDERED: ONDANSETRON INJ 2 MG/ML 2 ML VIAL IV PRN (22:38)
[2019-07-26] MEDS ORDERED: MoRPHine SULFATE 2 MG/ML CARP IV PRN (22:38)
[2019-07-26] MEDS ORDERED: ARTIFICIAL TEARS OP PRN (23:11)
[2019-07-26] MEDS: D5W AND 1/2NSS + 20MEQ KCL 20 MEQ/1,000 ML BAG IV SCH (23:35)
[2019-07-26] MEDS: RESTASIS~ORDER AWAITING ACTION SCH (23:40)
[2019-07-27] MEDS: RESTASIS~ORDER AWAITING ACTION SCH (07:14)
[2019-07-27] MEDS: D5W AND 1/2NSS + 20MEQ KCL 20 MEQ/1,000 ML BAG IV SCH (07:18)
[2019-07-27 07:33] LABS: Basophils # (auto) 0.02 K/uL (0-0.2); Basophils % (auto) 0.2 %; Eosinophils # (auto) 0.05 K/uL (0-0.5); Eosinophils % (auto) 0.6 %; Hematocrit (blood only) 39.6 % (37-47); Hemoglobin 12.9 g/dL (12.0-16.0); Immature Granulocytes # (auto) 0.02 K/uL (0.00-0.02); Immature Granulocytes % (auto) 0.2 %; Lymphocytes # (auto) 1.77 K/uL (1.2-3.4); Lymphocytes % (auto) 20.8 %; Mean Corpuscular Hemoglobin 32.4 pg (25-34); Mean Corpuscular Hgb Conc 32.6 g/dL (32-36); Mean Corpuscular Volume 99.5 fL (80-100); Mean Platelet Volume 9.2 fL (7.4-10.4); Monocytes # (auto) 0.76 K/uL (0.11-0.59); Monocytes % (auto) 8.9 %; Neutrophils % (auto) 69.3 %; Platelet Count 313 K/uL (130-400); RDW Coefficient of Variation 13.6 % (11.5-14.5); RDW Standard Deviation 49.4 fL (36.4-46.3); Red Blood Count 3.98 M/uL (4.2-5.4); White Blood Count 8.52 K/uL (4.8-10.8)
[2019-07-27 08:10] LABS: BUN Creatinine Ratio 22.5 (10-20); Calcium 8.5 mg/dl (8.5-10.1); Creatinine Clr Calc Pharmacy 66.8 ml/min; Est GFR (African American) 99.2; Est GFR (Non-African American) 85.6; Potassium 4.3 mmol/L (3.5-5.1)
[2019-07-27] MEDS ORDERED: LEVOTHYROXINE SODIUM 44 MCG in SYRINGE 0 ML IV SCH (09:00)
--- NOTE | 2019-07-27 09:30 | History & Physical Report ---
Date of Service July 27, 2019 History of Present Illness Chief Complaint: Abdominal pain- pancreatitis Primary Care Provider: Rob Mayers MD 79 yo fm for which GI is being consulted by Dr. Giraldo for pancreaitits. She is not followed by [facility] per my review of the chart. Per [facility] review, she had a recent episode of pancreatitis - etiology ? AIP however she states she was never on steroids - this was oxana a month ago. Admitted overnite for abdominal pain, with imaging c/w pancreatitis. Given IV fluids overnite, and now feeling much better this morning. She essentially wants to go home- she states she knows she what she needs to do - she does not drink, she will avoid fatty foods, she denies any new medications or herbal supplements. She is about to eat this morning. She is passing gas and having bowel movements. She has no other complaints other than wanting to go home. Allergies Allergy/AdvReac Type Severity Reaction Status Date / Time Iodinated Contrast Media Allergy Unknown RASH Verified 07/26/19 20:02 latex Allergy Unknown HIVES Verified 07/26/19 20:02 bee venom protein (honey bee) Allergy Unknown Verified 07/26/19 20:04 Home Medications Home Medications Medication Instructions Recorded Confirmed Type cyanocobalamin (vitamin B-12) 1,000 mcg PO QAM tab 02/27/19 07/26/19 History 1,000 mcg tablet,extended release ketotifen fumarate 0.025 % (0.035 1 drp OPB DIRECTED PRN ml 02/27/19 07/26/19 History %) eye drops cranberry fruit concentrate 250 mg 250 mg PO QAM tab 03/15/19 07/26/19 History chewable tablet cyclosporine 0.05 % eye drops in a 1 drp OPB Q12H 03/26/19 07/26/19 History dropperette epinephrine 0.3 mg/0.3 mL 0.3 mg IM DIRECTED PRN 03/26/19 07/26/19 History injection, auto-injector melatonin 3 mg tablet 3 mg PO HS 03/26/19 07/26/19 History multivitamin with minerals 1 tab PO QAM 03/26/19 07/26/19 History levothyroxine [Synthroid] 88 mcg PO QAM 06/21/19 07/26/19 History Past Med/Surg History Medical History Acute pancreatitis Arthritis Hiatal hernia (Acute) Hypertension Hypothyroidism (Chronic) Lyme disease Microscopic hematuria Recurrent pancreatitis Surgical History S/P bunionectomy right foot X 2 S/P tonsillectomy and adenoidectomy age 14 years Family History Mother Emphysema lung Father Myocardial infarction Hypertension Other No significant family history Social History Preferred Language: Korean Communication Ability: Effective Braider Operator Required: No Beliefs That Will Affect Care: None marital status: Current Living Situation: Spouse current occupational status: 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 Feels Safe at Home: Yes Safety Concerns: Feels Safe At This Time Smoking Status: Never smoker Hx Alcohol Use: No Hx Substance Use: No Seatbelt Use: always Review of Systems All systems reviewed & are unremarkable except as noted in HPI & below Physical Exam Physical Exam: Well nourished elderly female in nad Constitutional: WD/WN, vitals as above well developed and well nourished; no acute distress Eyes: PERRL, conjunctivae normal, anicteric sclerae Respiratory: normal respiratory effort, lungs clear to auscultation Cardiovascular: RRR, no murmur, no edema Gastrointestinal (Abdomen): normal bowel sounds, soft, nontender, no hepatosplenomegaly Musculoskeletal: no cyanosis or clubbing, extremities motor strength 5/5 Skin: no rashes, warm and dry Neurologic: PERRL, EOMI, accommodation nl, no face palsy, no dysarthria Results & Data Vital Signs (Past 12 Hours) Vital Signs Temp Pulse Pulse Pulse Resp BP Pulse Ox 07/27/19 08:20 37.2 C 77 16 132/76 92 07/27/19 06:56 70 07/27/19 03:39 36.8 C 78 18 138/80 94 07/26/19 23:52 95 H 07/26/19 22:59 36.9 C 93 H 16 145/84 H 94 07/26/19 22:02 87 18 154/86 H 92 Labs reviewed - bili and lft's normal imaging reviewed c/w pancreaitits Code Status & VTE Plan VTE Prophylaxis Plan VTE Prophylaxis will be ordered: Yes Supervising Physician Co-Signing Physician Notes 79 yof m admitted with reportedly her second episode of pancreatitis. Etiolgoy is not clear to me per review of the chart- one note says AIP - would send IgG subclasses to determine if she truly has AIP. She will need an outpatient EUS in 4-6 weeks through [facility]- she will be contacted for this to be scheduled. She is going to try food today, she really wants to go home if she can tolerate her diet. From a GI perspective if she is tolerating a diet, ok to dc home off steroids and avoidance of all pancreato-toxins, alcohol, new meds/herbal supplements.
--- NOTE | 2019-07-27 14:18 | Hospitalist Progress Note ---
Date of Service July 27, 2019 Assessment & Plan (1) Acute pancreatitis: Acute pancreatitis improving. Appreciate GI recommendations. Follow-up with [facility] GI with EUS within 4 to 6 weeks they will call patient to schedule appointment. Low-fat diet recommended. Lipase trended down from 17,000->3900. Patient tolerates p.o. well Continue home medication. Patient will be discharged home today DVT ppx; SCDs Patient is full code. (2) Acute dehydration: Patient hydrated with IV fluids. Resolved Present on Admission?: Yes (3) Hypothyroidism: Continue home medicine levothyroxine 88 MCG's p.o. every morning Present on Admission?: Yes Subjective Patient seen and examined at the bedside. She reports feeling much better this morning and no pain. Patient tolerated lunch very well and she reports no nausea or vomiting. Patient reports no diarrhea. Patient is afebrile. Hemodynamically stable. Patient denies fever, chills, chest pain, shortness of breath, abdominal pain, frequency, urgency. Patient requested to be discharged home. She is going to follow-up with her primary care physician within 7days and [facility] gastroenterology with US within 4 to 6 weeks. Review of Systems Review of Systems: All systems reviewed & are unremarkable except as noted in HPI & below Physical Exam Constitutional: WD/WN, vitals as above well developed and well nourished; no acute distress Eyes: PERRL, conjunctivae normal, anicteric sclerae Respiratory: normal respiratory effort, lungs clear to auscultation Cardiovascular: RRR, no murmur, no edema Gastrointestinal (Abdomen): normal bowel sounds, soft, nontender, no hepatosplenomegaly Musculoskeletal: no cyanosis or clubbing, extremities motor strength 5/5 Skin: no rashes, warm and dry Neurologic: PERRL, EOMI, accommodation nl, no face palsy, no dysarthria Results & Data Vital Signs (Past 12 Hours) Vital Signs Temp Pulse Pulse Resp BP Pulse Ox 07/27/19 11:18 37.2 C 62 18 129/74 96 07/27/19 08:20 37.2 C 77 16 132/76 92 07/27/19 06:56 70 07/27/19 03:39 36.8 C 78 18 138/80 94 PG Care Time/CCT Total # of Minutes Spent Total Time Spent with Patient: Total time spent is greater than 50% in coordination of care (as documented) at patient's floor/unit and/or counseling patient: (1) Acute pancreatitis Acute pancreatitis complication: no infection or necrosis Pancreatitis type: idiopathic Qualified Code(s): K85.00 - Idiopathic acute pancreatitis without necrosis or infection
--- NOTE | 2019-07-27 14:53 | Discharge Summary ---
Date of Service July 27, 2019 Admission HPI Per Admitting Provider 79 yo fm for which GI is being consulted by Dr. Giraldo for pancreaitits. She is not followed by [facility] per my review of the chart. Per [facility] review, she had a recent episode of pancreatitis - etiology ? AIP however she states she was never on steroids - this was oxana a month ago. Admitted overnite for abdominal pain, with imaging c/w pancreatitis. Given IV fluids overnite, and now feeling much better this morning. She essentially wants to go home- she states she knows she what she needs to do - she does not drink, she will avoid fatty foods, she denies any new medications or herbal supplements. She is about to eat this morning. She is passing gas and having bowel movements. She has no other complaints other than wanting to go home. Principal Diagnosis none Discharge Exam Constitutional WD/WN, vitals as above well developed and well nourished; no acute distress Eyes PERRL, conjunctivae normal, anicteric sclerae Respiratory normal respiratory effort, lungs clear to auscultation Cardiovascular RRR, no murmur, no edema Gastrointestinal (Abdomen) normal bowel sounds, soft, nontender, no hepatosplenomegaly Musculoskeletal no cyanosis or clubbing, extremities motor strength 5/5 Skin no rashes, warm and dry Neurologic PERRL, EOMI, accommodation nl, no face palsy, no dysarthria Discharge Data Allergies Allergy/AdvReac Type Severity Reaction Status Date / Time Iodinated Contrast Media Allergy Unknown RASH Verified 07/26/19 20:02 latex Allergy Unknown HIVES Verified 07/26/19 20:02 bee venom protein (honey bee) Allergy Unknown Verified 07/26/19 20:04 Consultations 07/26/19 20:24 ED Decision to Admit Stat 07/26/19 22:38 Consult Case Management - Discharge Planning Routine 07/26/19 23:00 Consult Gastroenterology Routine Ordered Studies 07/26/19 17:49 CT abd pelvis IV con only Stat Hospital Course (1) Acute pancreatitis: Acute pancreatitis improving. Appreciate GI recommendations. Follow-up with [facility] with EUS within 4 to 6 weeks they will call patient to schedule appointment. Low-fat diet recommended. Lipase trended down from 17,000->3900. Patient tolerates p.o. well Continue home medication. Patient will be discharged home today DVT ppx; SCDs Patient is full code. (2) Acute dehydration: Patient hydrated with IV fluids. Resolved (3) Hypothyroidism: Continue home medicine levothyroxine 88 MCG's p.o. every morning Total Time Total Time Spent Total Time Spent (In Minutes): over 30 min Discharge Plan Discharge Items Patient Disposition: Home - Self-Care Reason For Visit: PANCREATITIS Discharge Diagnosis: acute pancreatitis Condition on Discharge: Good Activity: As commented below Lifting: Gradually increase as tolerated Non-emergency contact: Primary Care Provider and Chief Optometry Service Call non-emergency contact if: you have any medication questions, your symptoms worsen, your pain is not controlled, your pain is worsening, your pain is unusual for you, your pain is concerning for you, you have a fever, your temperature is above 101, your temperature is above 101.5, your wound has increased redness, your wound has increased drainage and your wound pain has increased Follow-up/Referrals: Rob Mayers MD [Primary Care Provider] - Diet: Low Fat Addtl Attending Provider Instructions: Avoid fatty food. Follow up with with outpatient EUS in 4 to 6 weeks through [facility]. You will be contacted with scheduled appointment. Follow up PCP within 7 days. Pending Studies at Discharge: Yes Stand-Alone Forms: Call Back Authorization, [facility], Smoking Cessation Medications and DC Order Prescriptions: Continued cyanocobalamin (vitamin B-12) 1,000 mcg tablet extended release 1,000 mcg PO QAM RF: 0 ketotifen fumarate 0.025 % (0.035 %) drops 1 drp OPB DIRECTED PRN (Reason: Dry Eye(S)) RF: 0 Azo Cranberry 250 mg tablet,chewable 250 mg PO QAM RF: 0 Restasis 0.05 % dropperette 1 drp OPB Q12H RF: 0 epinephrine [EpiPen] 0.3 mg/0.3 mL auto-injector 0.3 mg IM DIRECTED PRN (Reason: Allergic Reaction) RF: 0 melatonin 3 mg tablet 3 mg PO HS RF: 0 levothyroxine [Synthroid] 88 mcg tablet 88 mcg PO QAM RF: 0 multivitamin with minerals tablet 1 tab PO QAM RF: 0 Discharge Orders: Discharge Order (Routine); Ordered 07/27/19 Ordered By: Rome Ballard Admission Data Admit Date/Time: 07/26/19 21:58 Attending Provider: Amari Giraldo Admit Provider: Kamini Cloud Primary Care Provider: Rob Mayers Other Providers: Amari Giraldo ; Jl Wen
--- NOTE | 2019-07-28 01:24 | Billing Data ---
Date of Service July 28, 2019 Coding Level of Care Code 87607 Initial Inpt Care Lvl 2
== END 2019-07-27 15:52 | disposition home or self-care (01) | DRG 440 ==
LOC: ED 17:03 → 2W 21:58

== ENCOUNTER 2019-12-17 11:18 | Inpatient (IN) ==
[2019-12-17] MEDS ORDERED: ONDANSETRON INJ 2 MG/ML 2 ML VIAL IV STA (11:51)
[2019-12-17] MEDS ORDERED: MoRPHine SULFATE 4 MG/ML 1 ML CARP\\VIAL IV STA ×3 (11:51→13:11)
[2019-12-17] MEDS ORDERED: SODIUM CHLORIDE 0.9% 1000ML 1,000 ML IV SCH (12:00)
[2019-12-17 12:02] LABS: Basophils # (auto) 0.04 K/uL (0-0.2); Basophils % (auto) 0.6 %; Eosinophils # (auto) 0.04 K/uL (0-0.5); Eosinophils % (auto) 0.6 %; Hematocrit (blood only) 46.4 % (37-47); Hemoglobin 15.4 g/dL (12.0-16.0); Immature Granulocytes # (auto) 0.04 K/uL (0.00-0.02); Immature Granulocytes % (auto) 0.6 %; Lymphocytes # (auto) 1.07 K/uL (1.2-3.4); Lymphocytes % (auto) 14.9 %; Mean Corpuscular Hemoglobin 32.7 pg (25-34); Mean Corpuscular Hgb Conc 33.2 g/dL (32-36); Mean Corpuscular Volume 98.5 fL (80-100); Mean Platelet Volume 9.5 fL (7.4-10.4); Monocytes # (auto) 0.47 K/uL (0.11-0.59); Monocytes % (auto) 6.6 %; Neutrophils # (auto) 5.51 K/uL (1.4-6.5); Neutrophils % (auto) 76.7 %; Platelet Count 311 K/uL (130-400); RDW Coefficient of Variation 13.5 % (11.5-14.5); RDW Standard Deviation 48.5 fL (36.4-46.3); Red Blood Count 4.71 M/uL (4.2-5.4); White Blood Count 7.17 K/uL (4.8-10.8)
[2019-12-17 12:30] LABS: Alanine Aminotransferase 39 U/L (12-78); Albumin Level 3.9 gm/dl (3.4-5.0); Alkaline Phosphatase 71 U/L (45-117); Aspartate Aminotransferase 27 U/L (15-37); BUN Creatinine Ratio 29.8 (10-20); Bilirubin,Total 0.7 mg/dl (0.2-1); Blood Urea Nitrogen 18 mg/dl (7-18); Calcium 9.5 mg/dl (8.5-10.1); Carbon Dioxide 30 mmol/L (21-32); Chloride 107 mmol/L (98-107); Creatinine Clr Calc Pharmacy 64.8 ml/min; Est GFR (African American) 98.7; Est GFR (Non-African American) 85.2; Glucose 125 mg/dl (70-99); Lipase 18312 U/L (73-393); Potassium 4.1 mmol/L (3.5-5.1); Sodium 141 mmol/L (136-145); Total Protein 7.9 gm/dl (6.4-8.2); Troponin I < 0.015 ng/ml (0-0.045)
--- NOTE | 2019-12-17 12:30 | Emergency Department Note ---
Impression & Plan Pancreatitis, Nausea & vomiting ED Provider Note Provider: Noe Mccain MD DATE OF SERVICE: 12/17/2019 CHIEF COMPLAINT: Abdominal pain, vomiting HISTORY OF PRESENT ILLNESS: Patient is a 79-year-old female with a history of hypertension, hypothyroidism, and pancreatitis presented today with acute onset around 6 AM this morning of significant abdominal pain initially improved slightly and then worsened. Significant pain in the patient's tearful in the room. Multiple episodes of vomiting nonbloody. Denies any diarrhea. No trauma reported. No fevers reported. No URI symptoms reported. Denies any upper chest pain. Patient states it feels similar to prior episodes when she had panc reatitis. Pain symptoms have now become constant again are 10 out of 10. Does radiate to the back. No medications for pain prior to arrival or nausea medication REVIEW OF SYSTEMS: A total of 10 review of systems was obtained and negative except as stated above in the HPI. PAST MEDICAL HISTORY: As noted above MEDICATIONS: Reviewed medication list includes levothyroxine SOCIAL HISTORY: Patient is a non-smoker and lives at home. No alcohol use reported. PHYSICAL EXAM: GENERAL: alert and oriented on the stretcher appears bent over holding her stomach and obvious discomfort Head: normocephalic and atraumatic EYES: No injection, discharge or icterus. ENT: Mucous membranes pink and moist. LUNGS: Airway patent. No retractions. Breath sounds clear HEART: Regular rate and rhythm. No chest wall tenderness ABDOMEN: Soft and non-tender, without guarding or rebound SKIN: Acyanotic, warm, dry, without rashes EXTREMITIES: Without swelling, tenderness or deformity NEUROLOGICAL: No focal deficits. No aphasia. No facial droop or slurred speech. Ambulatory. EKG: Normal sinus rhythm 66 bpm, no PVC. No acute ST segments ischemic elevation, incomplete left bundle branch block is noted. Similar to October [id number]. CONTINUOUS CARDIAC MONITORING: was ordered and showed a heart rate of normal sinus rhythm at 64 bpm Patient's hypertension was referred to the hospitalist PDMP was checked without noted issue. HOSPITAL COURSE: 1152 Patient was first seen and H&P performed. 1240 Patient reassessed and updated. Patient was still in significant pain additional pain medication ordered. [address] scan findings. He received multiple dose of pain medication as session making with her proceeded to contact the hospitalist for further inpatient care. 1404 discussed with [place] physician group for further evaluation admission. 1408 discussed per the patient's request with her findings and plan of care. Patient's laboratory studies and imaging reviewed. Differential includes Appendicitis, ovarian cyst, ovarian torsion, ectopic , TOA, PID, infections, diverticulitis, UTI, obstruction, mesenteric ischemia, aortic pathology, inflammatory bowel disease, renal colic, PUD, pancreatitis, biliary pathology, hernia, volvulus, constipation, as well as other pathologies. IMPRESSION/MEDICAL DECISION MAKING: Patient presents with significant epigastric pain concerning for recurrent pancreatitis. EKG and troponin were sent also basic laboratory studies. CT scan of the abdomen pelvis was ordered given her history of reaction to IV con trast this was without contrast. Treated symptomatically with IV fluids, morphine, and Zofran. Patient has some firmness symptoms this. EKG without significant findings. Troponin is negative. No sign of leukocytosis or anemia. No evidence of renal dysfunction or electrolyte abnormality. Lipase is elevated at greater than 18,000 and her presentation is consistent with acute pancreatitis. No evidence of acute hepatitis. CT scan without acute pathology beyond improvement of prior pancreatic inflammation. No evidence of obstructive cause. Patient does have large hiatal hernia. After 12 mg of morphine the patient had moderation of her pain to an 8 out of 10. Nausea has improved as we ll. Believe further inpatient care given the significant pain she experienced with pancreatitis is indicated peer discussed with hospice. Patient was agreed with this plan. Hypertension she experiencing I believe is likely secondary to her pain complaint. DIAGNOSIS: Acute pancreatitis, nausea and vomiting DISPOSITION: Hospitalist will evaluate Patient was agreeable with this plan. 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 other: 4 kids Feels Safe at Home: Yes Smoking Status: Never smoker Hx Alcohol Use: No Hx Substance Use: No Seatbelt Use: always Allergies Allergies Allergy/AdvReac Type Severity Reaction Status Date / Time Iodinated Contrast Media Allergy Unknown RASH Verified 12/17/19 12:21 latex Allergy Unknown HIVES Verified 12/17/19 12:21 bee venom protein (honey bee) Allergy Unknown Verified 12/17/19 12:21 Home Meds Home Medications Medication Instructions Recorded Confirmed cyanocobalamin (vitamin B-12) 1,000 mcg PO QAM tab 02/27/19 12/17/19 1,000 mcg tablet,extended release ketotifen fumarate 0.025 % (0.035 1 drp OPB DIRECTED PRN ml 02/27/19 12/17/19 %) eye drops cranberry fruit concentrate 250 mg 250 mg PO QAM tab 03/15/19 12/17/19 chewable tablet cyclosporine 0.05 % eye drops in a 1 drp OPB Q12H 03/26/19 12/17/19 dropperette epinephrine 0.3 mg/0.3 mL 0.3 mg IM DIRECTED PRN 03/26/19 12/17/19 injection, auto-injector melatonin 3 mg tablet 3 mg PO HS 03/26/19 12/17/19 multivitamin with minerals 1 tab PO QAM 03/26/19 12/17/19 levothyroxine [Synthroid] 88 mcg PO QAM 06/21/19 12/17/19 Results & Data (ED) Vital Signs Vital Signs - 24 hr 12/17/19 11:20 12/17/19 12:35 12/17/19 12:53 Temperature 36.8 C Temperature Source Oral Pulse Rate 64 61 Pulse Rate from SpO2 Sensor 61 Pulse Rhythm Regular Pulse Strength Normal Respiratory Rate 20 23 Respiratory Effort / Characteristics Non-Labored Spontaneous Normal for Patient Respiratory Depth Normal Respiratory Pattern Regular Blood Pressure 218/112 H 204/104 H Blood Pressure Mean 147 119 Blood Pressure Position Sitting Pulse Oximetry 97 95 98 Oxygen Delivery Method Room Air Room Air Room Air Sepsis Recent Fever Within 48 Hours No Sepsis Action Taken by Nursing No Action Required 12/17/19 13:00 12/17/19 13:26 Temperature Temperature Source Pulse Rate 69 68 Pulse Rate from SpO2 Sensor 68 69 Pulse Rhythm Pulse Strength Respiratory Rate 21 17 Respiratory Effort / Characteristics Respiratory Depth Respiratory Pattern Blood Pressure 209/93 H 202/104 H Blood Pressure Mean 114 127 Blood Pressure Position Pulse Oximetry 96 94 Oxygen Delivery Method Sepsis Recent Fever Within 48 Hours Sepsis Action Taken by Nursing Laboratory Data Result diagrams: 12/17/19 11:50 12/17/19 11:50 Lab Results 12/17/19 12/17/19 Range/Units 11:50 11:50 WBC 7.17 (4.8-10.8) K/uL RBC 4.71 (4.2-5.4) M/uL Hgb 15.4 (12.0-16.0) g/dL Hct 46.4 (37-47) % MCV 98.5 (80-100) fL MCH 32.7 (25-34) pg MCHC 33.2 (32-36) g/dL RDW Std Deviation 48.5 H (36.4-46.3) fL RDW Coeff of Estrellita 13.5 (11.5-14.5) % Plt Count 311 (130-400) K/uL MPV 9.5 (7.4-10.4) fL Immature Gran % (Auto) 0.6 % Neut % (Auto) 76.7 % Lymph % (Auto) 14.9 % [place] % (Auto) 6.6 % Eos % (Auto) 0.6 % Baso % (Auto) 0.6 % Immature Gran # (Auto) 0.04 H (0.00-0.02) K/uL Neut # (Auto) 5.51 (1.4-6.5) K/uL Lymph # (Auto) 1.07 L (1.2-3.4) K/uL [place] # (Auto) 0.47 (0.11-0.59) K/uL Eos # (Auto) 0.04 (0-0.5) K/uL Baso # (Auto) 0.04 (0-0.2) K/uL Sodium 141 (136-145) mmol/L Potassium 4.1 (3.5-5.1) mmol/L Chloride 107 (98-107) mmol/L Carbon Dioxide 30 (21-32) mmol/L Anion Gap 4.0 (3-11) BUN 18 (7-18) mg/dl Creatinine 0.62 (0.6-1.2) mg/dl Est Cr Clr Drug Dosing 64.8 ml/min Est GFR ( Amer) 98.7 Est GFR (Non-Af Amer) 85.2 BUN/Creatinine Ratio 29.8 H (10-20) Glucose 125 H (70-99) mg/dl Calcium 9.5 (8.5-10.1) mg/dl Total Bilirubin 0.7 (0.2-1) mg/dl AST 27 (15-37) U/L ALT 39 (12-78) U/L Alkaline Phosphatase 71 (45-117) U/L Troponin I < 0.015 (0-0.045) ng/ml Total Protein 7.9 (6.4-8.2) gm/dl Albumin 3.9 (3.4-5.0) gm/dl Globulin 4.0 (2.5-4.0) gm/dl Albumin/Globulin Ratio 1.0 (0.9-2) Lipase 67073 H (73-393) U/L Specimen Hemolysis Administered Medications Discontinued Medications Sodium Chloride (Nss 1000ml) 1,000 mls @ 999 mls/hr IV .Q1H1M SILVA Stop: 12/17/19 13:00 Last Infusion: 12/17/19 13:10 Dose: 0 mls/hr Documented by: [id number] Admin: 12/17/19 12:02 Dose: 999 mls/hr Documented by: [id number] Morphine Sulfate (Morphine Sulfate) 4 mg IV NOW STA Stop: 12/17/19 11:52 Last Admin: 12/17/19 12:03 Dose: 4 mg Documented by: [id number] Morphine Sulfate (Morphine Sulfate) 4 mg IV NOW STA Stop: 12/17/19 12:47 Last Admin: 12/17/19 12:51 Dose: 4 mg Documented by: [id number] Morphine Sulfate (Morphine Sulfate) 4 mg IV NOW STA Stop: 12/17/19 13:12 Last Admin: 12/17/19 13:25 Dose: 4 mg Documented by: [id number] Ondansetron HCl (Zofran) 4 mg IV NOW STA Stop: 12/17/19 11:52 Last Admin: 12/17/19 12:03 Dose: 4 mg Documented by: [id number] Discharge Plan Visit Data Chief Complaint: Vomiting Stated Complaint: VOMITING,PANCREATITIS ED Provider: Noe Mccain Discharge Problem: Pancreatitis, Nausea & vomiting Patient Disposition: Being Evaluated by Hospitalist Condition: Fair Forms Stand Alone Forms: My [facility] [employer] Prescriptions Prescriptions: No Action cyanocobalamin (vitamin B-12) 1,000 mcg tablet extended release 1,000 mcg PO QAM RF: 0 ketotifen fumarate 0.025 % (0.035 %) drops 1 drp OPB DIRECTED PRN (Reason: Dry Eye(S)) RF: 0 Azo Cranberry 250 mg tablet,chewable 250 mg PO QAM RF: 0 Restasis 0.05 % dropperette 1 drp OPB Q12H RF: 0 epinephrine [EpiPen] 0.3 mg/0.3 mL auto-injector 0.3 mg IM DIRECTED PRN (Reason: Allergic Reaction) RF: 0 melatonin 3 mg tablet 3 mg PO HS RF: 0 levothyroxine [Synthroid] 88 mcg tablet 88 mcg PO QAM RF: 0 multivitamin with minerals tablet 1 tab PO QAM RF: 0 Referrals Referrals: Rob Mayers MD [Primary Care Provider] - Discharge Problem: Pancreatitis Qualifiers: Chronicity: acute Pancreatitis type: unspecified pancreatitis type Acute pancreatitis complication: no infection or necrosis Qualified Code(s): K85.90 - Acute pancreatitis without necrosis or infection, unspecified Nausea & vomiting Qualifiers: Vomiting type: unspecified Vomiting Intractability: non-intractable Qualified Code(s): R11.2 - Nausea with vomiting, unspecified
--- NOTE | 2019-12-17 13:55 | CT Scan Report ---
CT SCAN OF THE ABDOMEN AND PELVIS WITHOUT CONTRAST CLINICAL HISTORY: epigastric pain, n/v COMPARISON STUDY: 07/26/2019 TECHNIQUE: CT scan of the abdomen and pelvis was performed from the lung bases to the proximal femurs . Images are reviewed in the axial, sagittal, and coronal planes. IV contrast was not administered fo r this examination. A dose lowering technique was utilized adhering to the principles of ALARA. CT DOSE: 441.37 mGy.cm FINDINGS: Lower chest: There are coronary artery calcifications. There is a large hiatal hernia. There are no p leural effusions. There is a left lower lobe calcified granuloma. There are minor basilar atelectatic changes. Liver: The unenhanced liver is normal in size, contour, and attenuation. There is no intrahepatic xin iary ductal dilatation. Gallbladder: Unremarkable. Spleen: Normal in size and attenuation. Pancreas: There is decreased fluid adjacent to the pancreatic tail. Adrenal glands: Unremarkable. Kidneys: There are bilateral parapelvic cysts. No renal ureteral or bladder calculi are visualized. Bowel: There are no transition zones to indicate bowel obstruction. There is no evidence of acute div erticulitis. There are no findings to indicate acute appendicitis. There is scattered colonic diverti cula present. Peritoneum: There is no free intraperitoneal air. There is trace fluid within the left upper quadrant . There is a tiny fat-containing umbilical hernia. Vasculature: The abdominal aorta is normal in course and caliber. Adenopathy: None. Pelvic viscera: A calcified uterine fibroids. Skeletal structures: No destructive osseous lesions are seen. IMPRESSION: 1. No evidence of bowel obstruction. No evidence of free air 2. No renal, ureteral, or bladder calculi identified 4. Large hiatal hernia 5. Marked improvement in the previously identified peripancreatic fluid and edema. 6. No evidence of acute diverticulitis. No evidence of acute appendicitis. ACT 112: Negative or not required by law. Electronically signed by: Jun Francis M.D. 12/17/2019 1:54 PM
--- NOTE | 2019-12-17 14:07 | History & Physical Report ---
Date of Service December 17, 2019 Assessment & Plan (1) Acute pancreatitis: This is the patient's 7th or 8th episode of recurrent pancreatitis over the last few years. Previous work-ups including CTs, ultrasounds, and MRCP have been unrevealing with respect to etiology. Triglycerides have been normal on multiple occasions, calcium has been normal, and MRCP has not demonstrated pancreatic divisum. She does not drink alcohol. She mentioned being told once that she had sludge but was referred to general surgery and cholecystectomy was not advised. She was seen during a prior admission by [facility] and EUS was recommended but she has not had such to date. Autoimmune pancreatitis has been considered previously. BRITTA has been positive. Anti-smooth muscle Ab and anti-mitochondrial Ab have been negative. IgG subclasses showed decreased IgG2 but other subclasses were normal. Plan - * NPO * copious lactated ringers (start 200cc/hr for 1 L (received LR bolus and NS bolus in ER already) then LR at 150cc/hr) * IV pain meds (try dilaudid in mark of morphine - not getting relief w/ latter) * IV protonix * IV zofran prn * consult [facility] for any additional recommendations; defer repeat imaging for now * repeat lipase and BMP am (2) Hypothyroidism: TSH 2019 was wnl. Cont synthroid; repeat TSH in am. (3) Hypertension: Patient has diagnosis of HTN but does not take meds for such. Uncertain if abdominal pain is causing the severe elevation. Will place on telemetry and make IV lopressor available for prn use; give 2.5mg IV q6h prn for systolics >180. Avoid IV MARIUSZ due to theoretical risk of pancreatitis w/ such. (4) Hiatal hernia: Large hiatal hernia on CT. Place on IV PPI for GI proph given the frequent upper GI symptoms. (5) DVT prophylaxis: lovenox 40mg daily History of Present Illness Chief Complaint: abdominal pain Primary Care Provider: Rob Mayers MD 79yo female with history of recurrent pancreatitis who presents with abdominal pain beginning at 0600 this am. Pain is epigastric in location and also around the umbilicus. Some of the pain radiates to the shoulders. Has had some emesis with nausea. No diarrhea. She has had pancreatitis in the past and the current symptoms are exactly like prior spells. Has seen multiple specialists for recurrent pancreatitis. [place] fine yesterday - worked outside in the yard without limitation. No fevers, chills, dyspnea, myalgias, loss of taste or smell. No recent travel. No sick contacts. Denies any new medications or use of herbal substances. She remembers being told once she had gall bladder sludge but no stones. Having cholecystectomy was not recommended. She was supposed to have EUS by [facility] in late 2018 but never had such. Allergies Allergy/AdvReac Type Severity Reaction Status Date / Time Iodinated Contrast Media Allergy Unknown RASH Verified 12/17/19 12:21 latex Allergy Unknown HIVES Verified 12/17/19 12:21 bee venom protein (honey bee) Allergy Unknown Verified 12/17/19 12:21 Home Medications Home Medications Medication Instructions Recorded Confirmed Type cyanocobalamin (vitamin B-12) 1,000 mcg PO QAM tab 02/27/19 12/17/19 History 1,000 mcg tablet,extended release ketotifen fumarate 0.025 % (0.035 1 drp OPB DIRECTED PRN ml 02/27/19 12/17/19 History %) eye drops cranberry fruit concentrate 250 mg 250 mg PO QAM tab 03/15/19 12/17/19 History chewable tablet cyclosporine 0.05 % eye drops in a 1 drp OPB Q12H 03/26/19 12/17/19 History dropperette epinephrine 0.3 mg/0.3 mL 0.3 mg IM DIRECTED PRN 03/26/19 12/17/19 History injection, auto-injector melatonin 3 mg tablet 3 mg PO HS 03/26/19 12/17/19 History multivitamin with minerals 1 tab PO QAM 03/26/19 12/17/19 History levothyroxine [Synthroid] 88 mcg PO QAM 06/21/19 12/17/19 History Past Med/Surg History Medical History (Updated 12/17/19 @ 14:49 by Juno Garcia) Acute pancreatitis Arthritis Hiatal hernia (Acute) Hypertension Hypothyroidism (Chronic) Lyme disease Recurrent pancreatitis Surgical History (Updated 12/17/19 @ 14:46 by Juno Garcia) H/O cataract extraction S/P bunionectomy right foot X 2 S/P tonsillectomy and adenoidectomy age 14 years Family History Mother Emphysema lung Father Myocardial infarction Hypertension Denies family history of Colon cancer Ovarian cancer Prostate cancer Autoimmune disease Pancreatitis Breast cancer Social History Preferred Language: Arabic Communication Ability: Effective Surgical Instrument Technician Required: No Beliefs That Will Affect Care: None marital status: Current Living Situation: Spouse Current Living Situation Comment: lives with in [place] current occupational status: 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 Other Information That Helps Us Care for You: No other: 4 kids Feels Safe at Home: Yes Safety Concerns: Feels Safe At This Time Smoking Status: Never smoker Do You Dip or Chew Tobacco: No ; Second Hand Exposure: No ; Tobacco Cessation Education Requested by Patient: No Hx Alcohol Use: No Hx Substance Use: No Seatbelt Use: always Review of Systems Constitutional: no fever, no chills, no fatigue and no anorexia Eyes: no worsening vision Ear, Nose, Mouth, Throat: no nasal discharge and no sore throat Respiratory: + cough (minimal ); no dyspnea Cardiovascular: no chest pain Gastrointestinal: + abdominal pain, + nausea and + vomiting; no diarrhea/loose stools and no blood in stools Genitourinary: no dysuria Musculoskeletal: no myalgia Integumentary: no rash Neurologic: no loss of sensation Psychiatric: + anxiety; no depression Endocrine: no diabetes Hematologic / Lymphatic: no easy bleeding and no easy bruising Physical Exam Constitutional: average body habitus; no acute distress and no altered mental status slightly sleepy but able to give full history Eyes: PERRL (lens implants b/l ) ENMT: Mouth: + dry oral mucous membranes; no oropharynx abnormality Neck: trachea midline, no thyromegaly Respiratory: normal respiratory effort, lungs clear to auscultation Cardiovascular: Rate/Rhythm: regular rate and regular rhythm Heart Sounds: normal S1, normal S2 and + murmur (2/6 mid-systolic, mid-LSB ) Vessels: posterior tibial pulses present and dorsalis pedis pulses present; no JVD Extremities: no edema Gastrointestinal (Abdomen): normal bowel sounds, soft, nontender, no hepatosplenomegaly Inspection/Auscultation: + abdomen distended (slight ) Percussion/Palpation: no guarding Musculoskeletal: no cyanosis or clubbing, extremities motor strength 5/5 Skin: no rash; turgor poor Neurologic: deep tendon reflexes 2+ bilaterally and moves all extremities Psychiatric: Orientation: alert and oriented x 3 Lymphatic: + cervical lymphadenopathy (shotty LAD b/l ) Results & Data Results & Data ([facility]) Vital Signs (Past 12 Hours) Vital Signs Temp Pulse Resp BP Pulse Ox 12/17/19 13:26 68 17 202/104 H 94 12/17/19 13:00 69 21 209/93 H 96 12/17/19 12:53 61 23 204/104 H 98 12/17/19 12:35 95 12/17/19 11:20 36.8 C 64 20 218/112 H 97 Laboratory Results Laboratory Results - last 24 hr 12/17/19 12/17/19 12/17/19 11:50 11:50 11:50 WBC 7.17 RBC 4.71 Hgb 15.4 Hct 46.4 MCV 98.5 MCH 32.7 MCHC 33.2 RDW Std Deviation 48.5 H RDW Coeff of Estrellita 13.5 Plt Count 311 MPV 9.5 Immature Gran % (Auto) 0.6 Neut % (Auto) 76.7 Lymph % (Auto) 14.9 [place] % (Auto) 6.6 Eos % (Auto) 0.6 Baso % (Auto) 0.6 Immature Gran # (Auto) 0.04 H Neut # (Auto) 5.51 Lymph # (Auto) 1.07 L [place] # (Auto) 0.47 Eos # (Auto) 0.04 Baso # (Auto) 0.04 Sodium 141 Potassium 4.1 Chloride 107 Carbon Dioxide 30 Anion Gap 4.0 BUN 18 Creatinine 0.62 Est Cr Clr Drug Dosing 64.8 Est GFR ( Amer) 98.7 Est GFR (Non-Af Amer) 85.2 BUN/Creatinine Ratio 29.8 H Glucose 125 H Calcium 9.5 Magnesium Pending Total Bilirubin 0.7 AST 27 ALT 39 Alkaline Phosphatase 71 Troponin I < 0.015 Total Protein 7.9 Albumin 3.9 Globulin 4.0 Albumin/Globulin Ratio 1.0 Lipase 66406 H Specimen Hemolysis Diagnostic Findings CT abd/pelvis- 1. No evidence of bowel obstruction. No evidence of free air 2. No renal, ureteral, or bladder calculi identified 4. Large hiatal hernia 5. Marked improvement in the previously identified peripancreatic fluid and edema. 6. No evidence of acute diverticulitis. No evidence of acute appendicitis. EKG - NSR, incomplete LBBB, no ST changes Code Status & VTE Plan Code Status full - but would not want prolonged intubation/mech ventilation VTE Prophylaxis Plan VTE Prophylaxis will be ordered: Yes PG Care Time/CCT Total # of Minutes Spent Total Time Spent with Patient: Total time spent is greater than 50% in coordination of care (as documented) at patient's floor/unit and/or counseling patient: Coding Level of Care Code 57604 Initial Inpt Care Lvl 2 Diagnoses Acute pancreatitis K85.00 Acute pancreatitis complication: no infection or necrosis Pancreatitis type: idiopathic Hypothyroidism E03.9 Hypothyroidism type: acquired Hypertension I10 Hypertension type: essential hypertension Hiatal hernia K44.9 DVT prophylaxis Z29.9 (1) Acute pancreatitis Acute pancreatitis complication: no infection or necrosis Pancreatitis type: idiopathic Qualified Code(s): K85.00 - Idiopathic acute pancreatitis without necrosis or infection (2) Hypothyroidism Hypothyroidism type: acquired Qualified Code(s): E03.9 - Hypothyroidism, unspecified (3) Hypertension Hypertension type: essential hypertension Qualified Code(s): I10 - Essential (primary) hypertension
[2019-12-17] MEDS ORDERED: LACTATED RINGER'S 500 ML IV ONE (14:09)
--- NOTE | 2019-12-17 14:41 | Electrocardiogram Report ---
Test Reason : Blood Pressure : / mmHG Vent. Rate : 066 BPM Atrial Rate : 066 BPM P-R Int : 178 ms QRS Dur : 108 ms QT Int : 432 ms P-R-T Axes : 039 -18 035 degrees QTc Int : 452 ms Normal sinus rhythm Incomplete left bundle block Borderline ECG When compared with ECG of 11-OCT-2018 18:23, Incomplete left bundle block is now Present Confirmed by Beau Morataya ([id number]) on 12/17/2019 2:40:48 PM Referred By: REFERRED SELF Confirmed By:Beau Morataya
[2019-12-17] MEDS ORDERED: HYDROmorphone INJ 0.5 MG/0.5 ML SYR IV PRN (14:44)
[2019-12-17] MEDS ORDERED: LACTATED RINGER'S 1,000 ML IV SCH (14:45)
[2019-12-17 15:16] LABS: Magnesium 2.2 mg/dl (1.8-2.4)
[2019-12-17] MEDS ORDERED: EPINEPHRINE ADULT AUTO-INJECT 0.3 MG SYR IM PRN (15:48)
[2019-12-17] MEDS ORDERED: METOPROLOL TARTRATE 1 MG/ML VIAL IV PRN (15:48)
[2019-12-17] MEDS ORDERED: ONDANSETRON INJ 2 MG/ML 2 ML VIAL IV PRN (15:48)
--- NOTE | 2019-12-17 16:23 | Gastrointestinal Consultation ---
Date of Consultation December 17, 2019 Assessment & Plan (1) Acute pancreatitis: Pt is a 79 y/o female admitted w recurrent pancreatitis. Previous workup for pancreatitis showed + BRITTA, but normal IgG4. She did have signs of small pancreas cyst and biliary sludge. Had been evaluated by different surgeons in the past (Dr. Damian Dey, surgeons at [facility]) - she had wanted to defer cholecystectomy - IVF resuscitation w LR - NPO for now - Symptomatic management with antiemetics and analgesics - Repeat MRCP to r/o pancreatic divisum, biliary stone - Eventually needs repeat EUS in 4-6 weeks time - Consider Surgery eval for possible eventual cholecystectomy Supervising Physician Co-Signing Physician Notes Attending attestation I have seen, examined this patient, and agree with the findings and above by our mid-level provider LEYDI Lindsay, with the following additions -Recurrent idiopathic recurrent pancreatitis - IVF, pain control - will follow History of Present Illness Reason for Consultation: Pancreatitis Requesting Physician: Dr. Juno Sandoval Attending Physician: Dr. Bello Lindsey History of Present Illness Pt is a 79 y/o female who presented to ED w c/o pain on lower mid chest, RUQ, epigastric abd areas radiating towards umbilicus. Had associated n/v, denies any fever, chills, CP, SOB, URI symptoms or bowel habit changes. She had hx of recurrent pancreatitis ? etiology and said the symptoms are similar to previous pancreatitis episodes. On eval labs showed no signs of leukocytosis, H/H normal, BMP unremarkable. LFTs normal, but lipase elevated at 18K. CT abd/pelvis w/o contrast: 1. No evidence of bowel obstruction. No evidence of free air 2. No renal, ureteral, or bladder calculi identified 4. Large hiatal hernia 5. Marked improvement in the previously identified peripancreatic fluid and edema. 6. No evidence of acute diverticulitis. No evidence of acute appendicitis. Pt primarily established GI pt of [facility]. She had previously been evaluated by Dr. Damian Dey in the past for possible cholecystectomy however not recommended to have this surgery done as it wasn't completely clear that source of her pancreatitis was biliary related. She had also seen surgeons at [facility] and she decided to defer cholecystectomy as well. She had used several herbal supplements in the past including a diet pill. Denies using this for a while but still on some herbal supplements. She denies tobacco, ETOH products. Last EGD/EUS in 2018: hiatal hernia w Diego ulcers; 5x4mm pancreas head cyst; sludge in gallbladder body + BRITTA, IgG4 normal. Allergies Allergy/AdvReac Type Severity Reaction Status Date / Time Iodinated Contrast Media Allergy Unknown RASH Verified 12/17/19 12:21 latex Allergy Unknown HIVES Verified 12/17/19 12:21 bee venom protein (honey bee) Allergy Unknown Verified 12/17/19 12:21 Home Medications Home Medications Medication Instructions Recorded Confirmed Type cyanocobalamin (vitamin B-12) 1,000 mcg PO QAM tab 02/27/19 12/17/19 History 1,000 mcg tablet,extended release ketotifen fumarate 0.025 % (0.035 1 drp OPB DIRECTED PRN ml 02/27/19 12/17/19 History %) eye drops cranberry fruit concentrate 250 mg 250 mg PO QAM tab 03/15/19 12/17/19 History chewable tablet cyclosporine 0.05 % eye drops in a 1 drp OPB Q12H 03/26/19 12/17/19 History dropperette epinephrine 0.3 mg/0.3 mL 0.3 mg IM DIRECTED PRN 03/26/19 12/17/19 History injection, auto-injector melatonin 3 mg tablet 3 mg PO HS 03/26/19 12/17/19 History multivitamin with minerals 1 tab PO QAM 03/26/19 12/17/19 History levothyroxine [Synthroid] 88 mcg PO QAM 06/21/19 12/17/19 History Patient History Medical History Acute pancreatitis Arthritis Hiatal hernia (Acute) Hypertension Hypothyroidism (Chronic) Lyme disease Recurrent pancreatitis Surgical History H/O cataract extraction S/P bunionectomy right foot X 2 S/P tonsillectomy and adenoidectomy age 14 years Family History Mother Emphysema lung Father Myocardial infarction Hypertension Denies family history of Colon cancer Ovarian cancer Prostate cancer Autoimmune disease Pancreatitis Breast cancer Social History Preferred Language: Comoran Communication Ability: Effective 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 Beliefs That Will Affect Care: None marital status: Current Living Situation: Spouse Current Living Situation Comment: lives with in [place] current occupational status: 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 Other Information That Helps Us Care for You: No other: 4 kids Feels Safe at Home: Yes Safety Concerns: Feels Safe At This Time Smoking Status: Never smoker Do You Dip or Chew Tobacco: No ; Second Hand Exposure: No ; Tobacco Cessation Education Requested by Patient: No Hx Alcohol Use: No Hx Substance Use: No Seatbelt Use: always Review of Systems Review of Systems: All systems reviewed & are unremarkable except as noted in HPI & below Physical Exam Constitutional: WD/WN, vitals as above well groomed, cooperative and comfortable Eyes: PERRL, conjunctivae normal, anicteric sclerae ENMT: external ear and nose normal, oropharynx normal Respiratory: normal respiratory effort, lungs clear to auscultation Cardiovascular: RRR, no murmur, no edema Gastrointestinal (Abdomen): Inspection/Auscultation: + hypoactive bowel sounds Percussion/Palpation: + abdomen tender (RUQ, epigastric) and abdomen soft Skin: no rashes, warm and dry no jaundice Psychiatric: A+Ox3, euthymic affect Lymphatic: no lymphedema Results & Data ([facility]) Vital Signs (Past 12 Hours) Vital Signs Temp Pulse Resp BP Pulse Ox 12/17/19 15:15 63 19 197/96 H 94 12/17/19 15:00 65 13 208/98 H 92 12/17/19 14:45 66 16 206/95 H 92 12/17/19 14:32 69 12 204/101 H 91 12/17/19 14:30 72 29 H 203/101 H 96 12/17/19 13:30 69 24 203/99 H 94 12/17/19 13:26 68 17 202/104 H 94 12/17/19 13:00 69 21 209/93 H 96 12/17/19 12:53 61 23 204/104 H 98 12/17/19 12:35 95 12/17/19 11:20 36.8 C 64 20 218/112 H 97 (1) Acute pancreatitis Acute pancreatitis complication: no infection or necrosis Pancreatitis type: idiopathic Qualified Code(s): K85.00 - Idiopathic acute pancreatitis without necrosis or infection
[2019-12-17] MEDS: PANTOprazole 40 MG in SYRINGE 0 ML IV SCH (17:00)
--- NOTE | 2019-12-17 19:58 | Magnetic Resonance Report ---
MR MRCP HISTORY: pancreatitis, r/o divisum, biliary stone TECHNIQUE: MRCP of the abdomen was performed without contrast cord to standard departmental protocol. COMPARISON STUDY: Abdomen and pelvis CT 12/17/2019. MRCP 10/12/2018. FINDINGS: Trace bilateral pleural effusions. Large hiatus hernia, unchanged. 11 mm T2 hyperintense le lesley within the left hepatic lobe anteriorly likely representing a cyst. The spleen and adrenal gland s unremarkable. Multiple bilateral peripelvic cysts are again noted. No hydronephrosis. No retroperit wheatley lymphadenopathy. Normal caliber common bile duct and main pancreatic duct. No filling defects w ithin the common bile duct. No gallbladder wall thickening. No gallstones. Peripancreatic fluid surro unding the pancreatic tail consistent with the patient's known history of acute pancreatitis. This re reza unchanged. No evidence for pancreas divisum. IMPRESSION: 1. Peripancreatic fluid surrounding the pancreatic tail consistent with the patient's known history o f acute pancreatitis. This remains unchanged. 2. No filling defects within the normal caliber common bile duct. 2. No evidence for pancreas divisum. 4. Large hiatal hernia, unchanged. ACT 112: Negative or not required by law. Electronically signed by: Thomas Charles M.D. 12/17/2019 7:57 PM
[2019-12-17] MEDS ORDERED: ENOXAPARIN INJ 40 MG/0.4 ML SYR SQ SCH (21:00)
[2019-12-17] MEDS ORDERED: MELATONIN 3 MG TAB PO SCH (21:00)
[2019-12-17] MEDS: LACTATED RINGER'S 1,000 ML IV SCH (21:15)
[2019-12-18] MEDS: LACTATED RINGER'S 1,000 ML IV SCH ×2 (03:54→09:49)
[2019-12-18] MEDS ORDERED: LEVOTHYROXINE SODIUM 88 MCG TABLET PO SCH (06:30)
[2019-12-18 07:43] LABS: BUN Creatinine Ratio 24.6 (10-20); Calcium 8.8 mg/dl (8.5-10.1); Creatinine Clr Calc Pharmacy 87.4 ml/min; Est GFR (African American) 108.1; Est GFR (Non-African American) 93.3
[2019-12-18 07:58] LABS: Thyroid Stimulating Hormone 1.76 uIu/ml (0.300-4.500)
[2019-12-18] MEDS: PANTOprazole 40 MG in SYRINGE 0 ML IV SCH (09:49)
--- NOTE | 2019-12-18 10:36 | Gastroenterology Progress Note ---
Date of Service December 18, 2019 Assessment & Plan (1) Acute pancreatitis: Pt is a 79 y/o female admitted w recurrent pancreatitis. Previous workup for pancreatitis showed + BRITTA, but normal IgG4. She did have signs of small pancreas cyst and biliary sludge. Had been evaluated by different surgeons in the past (Dr. Damian Dey, surgeons at [facility]) - she had wanted to defer cholecystectomy Today feels great, afebrile overnight and denies any abd pain, n/v. Lipase trending down. MRCP yesterday w/o signs of biliary obstruction or pancreatic divisum - Start CL diet, may advance as tolerated to low fat - Decrease LR IVF rate to 75mL/hr and if tolerating PO intake well may DC - Symptomatic management with antiemetics and analgesics prn - Eventually needs repeat EUS in 4-6 weeks time; [facility] GI schedulers will call her to offer appt - She can continue discussion with her primary lisw ([facility]) about re-referral to Surgery for possible cholecystectomy to help prevent pancreatitis recurrence - No contraindication for DC home from GI standpoint by end of day or tomorrow if continues to do well symptomatically Admission and Anticipated Discharge Date Admission Date: December 17, 2019 Supervising Physician Co-Signing Physician Notes Attending attestation I have seen, examined this patient, and agree with the findings and above by our mid-level provider LEYDI Lindsay, with the following additions: -doing well -looks well -recurrent pancreatitis, would suggest outpt EUS/ERCP given recurrent disease. Subjective Pt reports feeling great, denies any fever, chills, CP, SOB, abd pain, n/v, voiding well. Feels hungry and wants to try diet Lipase down from 18K to Review of Systems Review of Systems: All systems reviewed & are unremarkable except as noted in HPI & below Physical Exam Constitutional: WD/WN, vitals as above well groomed, cooperative and comfortable Eyes: PERRL, conjunctivae normal, anicteric sclerae ENMT: external ear and nose normal, oropharynx normal Respiratory: normal respiratory effort, lungs clear to auscultation Cardiovascular: RRR, no murmur, no edema Gastrointestinal (Abdomen): normal bowel sounds, soft, nontender, no hepatosplenomegaly Skin: no rashes, warm and dry no jaundice Psychiatric: A+Ox3, euthymic affect Lymphatic: no lymphedema Results & Data ([facility]) Vital Signs (Past 12 Hours) Vital Signs Temp Pulse Pulse Resp BP Pulse Ox 12/18/19 07:25 36.4 C L 56 L 18 123/75 95 12/18/19 03:56 36.8 C 68 18 130/68 96 12/18/19 00:33 69 12/18/19 00:12 36.8 C 64 18 107/40 L 94 (1) Acute pancreatitis Acute pancreatitis complication: no infection or necrosis Pancreatitis type: idiopathic Qualified Code(s): K85.00 - Idiopathic acute pancreatitis without necrosis or infection
[2019-12-18] MEDS ORDERED: ARTIFICIAL TEARS OPB PRN (12:00)
--- NOTE | 2019-12-25 00:02 | Discharge Summary ---
Date of Service December 18, 2019 Admission HPI Per Admitting Provider 79yo female with history of recurrent pancreatitis who presents with abdominal pain beginning at 0600 this am. Pain is epigastric in location and also around the umbilicus. Some of the pain radiates to the shoulders. Has had some emesis with nausea. No diarrhea. She has had pancreatitis in the past and the current symptoms are exactly like prior spells. Has seen multiple specialists for recurrent pancreatitis. [place] fine yesterday - worked outside in the yard without limitation. No fevers, chills, dyspnea, myalgias, loss of taste or smell. No recent travel. No sick contacts. Denies any new medications or use of herbal substances. She remembers being told once she had gall bladder sludge but no stones. Having cholecystectomy was not recommended. She was supposed to have EUS by [facility] in late 2018 but never had such. Principal Diagnosis Acute pancreatitis Discharge Exam Constitutional: average body habitus; no acute distress and no altered mental status Eyes: PERRL (lens implants b/l ) ENMT: Mouth: MMM, no oropharynx abnormality Neck: trachea midline, no thyromegaly Respiratory: normal respiratory effort, lungs clear to auscultation Cardiovascular: Rate/Rhythm: regular rate and regular rhythm Heart Sounds: normal S1, normal S2 and + murmur (2/6 mid-systolic, mid-LSB ) Vessels: posterior tibial pulses present and dorsalis pedis pulses present; no JVD Extremities: no edema Gastrointestinal (Abdomen): normal bowel sounds, soft, nontender, no hepatosplenomegaly Inspection/Auscultation: + abdomen distended (slight ) Percussion/Palpation: no guarding Musculoskeletal: no cyanosis or clubbing, extremities motor strength 5/5 Psychiatric: Orientation: alert and oriented x 3 Lymphatic: + cervical lymphadenopathy (shotty LAD b/l ) Discharge Data Allergies Allergy/AdvReac Type Severity Reaction Status Date / Time Iodinated Contrast Media Allergy Unknown RASH Verified 12/17/19 12:21 latex Allergy Unknown HIVES Verified 12/17/19 12:21 bee venom protein (honey bee) Allergy Unknown Verified 12/17/19 12:21 Consultations 12/17/19 14:04 ED Decision to Admit Stat 12/17/19 15:48 Consult Gastroenterology Routine Ordered Studies 12/17/19 11:58 CT abd pelvis wo con Stat 12/17/19 16:26 MR MRCP Routine Hospital Course (1) Acute pancreatitis: This is the patient's 7th or 8th episode of recurrent pancreatitis over the last few years. Previous work-ups including CTs, ultrasounds, and MRCP have been unrevealing with respect to etiology. Triglycerides have been normal on multiple occasions, calcium has been normal, and MRCP has not demonstrated pancreatic divisum. She does not drink alcohol. She mentioned being told once that she had sludge but was referred to general surgery and cholecystectomy was not advised. She was seen during a prior admission by [facility] and EUS was recommended but she has not had such to date. Autoimmune pancreatitis has been considered previously. BRITTA has been positive. Anti-smooth muscle Ab and anti-mitochondrial Ab have been negative. IgG subclasses showed decreased IgG2 but other subclasses were normal. Plan On admission- * NPO * copious lactated ringers (start 200cc/hr for 1 L (received LR bolus and NS bolus in ER already) then LR at 150cc/hr) * IV pain meds (try dilaudid in mark of morphine - not getting relief w/ latter) * IV protonix * IV zofran prn * consult [facility] for any additional recommendations; defer repeat imaging for now * repeat lipase and BMP am On day of discharge, appreciat input from GI: Today feels great, afebrile overnight and denies any abd pain, n/v. Lipase trending down. 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 Cont synthroid; repeat TSH in am. (3) Hypertension: Patient has diagnosis of HTN but does not take meds for such. Uncertain if abdominal pain is causing the severe elevation. Will place on telemetry and make IV lopressor available for prn use; give 2.5mg IV q6h prn for systolics >180. Avoid IV MARIUSZ due to theoretical risk of pancreatitis w/ such. ill defer further management to PCP. (4) Hiatal hernia: Large hiatal hernia on CT. (5) DVT prophylaxis: lovenox 40mg daily Total Time Total Time Spent Total Time Spent (In Minutes): 32 Total Time Includes: Examination of the Patient, Discharge Planning and Medication Reconciliation Discharge Plan Discharge Items Patient Disposition: Home - Self-Care Reason For Visit: ACUTE PANCRATITIS Discharge Diagnosis: Acute pancreatitis Condition on Discharge: Fair Activity: Resume your previous activity Non-emergency contact: Primary Care Provider Call non-emergency contact if: you have any medication questions Follow-up/Referrals: Rob Mayers MD [Primary Care Provider] - Diet: Low Fat Addtl Attending Provider Instructions: You have been hospitalized for an acute medical problem. During your stay at [facility], we have made an effort to correct the problem that brought you to the hospital while keeping you as comfortable as possible. Medications were used to bring your condition under control and your discharge instructions will include directions for any medications you should take after leaving the hospital. Please make sure you see your Primary Care Provider as part of your follow up plan. Pending Studies at Discharge: No Stand-Alone Forms: My [facility], Smoking Cessation Medications and DC Order Prescriptions: Continued cyanocobalamin (vitamin B-12) 1,000 mcg tablet extended release 1,000 mcg PO QAM RF: 0 Restasis 0.05 % dropperette 1 drp OPB Q12H RF: 0 epinephrine [EpiPen] 0.3 mg/0.3 mL auto-injector 0.3 mg IM DIRECTED PRN (Reason: Allergic Reaction) RF: 0 melatonin 3 mg tablet 3 mg PO HS RF: 0 levothyroxine [Synthroid] 88 mcg tablet 88 mcg PO QAM RF: 0 multivitamin with minerals tablet 1 tab PO QAM RF: 0 No Action metronidazole 0.75 % cream 1 appln TOP DAILY RF: 0 ciprofloxacin HCl 250 mg tablet 250 mg PO BID 3 Days Qty: 6 RF: 0 Discharge Orders: Discharge Order (Routine); Ordered 12/18/19 Ordered By: Antonio Rao Admission Data Admit Date/Time: 12/17/19 14:44 Attending Provider: Antonio Rao Admit Provider: Juno Garcia Primary Care Provider: Rob Mayers Other Providers: Bello Lindsey Other Interventions: Discharge Summary Assessment (RN) Last Done: 12/18/19 17:54 DC Date/Time DO NOT enter until pt leaves facility: 12/18/19 18:47 Coding Level of Care Code D/C Day Management >30 mins Diagnoses Acute pancreatitis K85.00 Acute pancreatitis complication: no infection or necrosis Pancreatitis type: idiopathic Hypothyroidism E03.9 Hypothyroidism type: acquired Hypertension I10 Hypertension type: essential hypertension Hiatal hernia K44.9 DVT prophylaxis Z29.9 Time Spent (min) 32
== END 2019-12-18 18:47 | disposition home or self-care (01) | DRG 440 ==
LOC: ED 11:18 → 2S 14:44 → SUATTDRO 14:44 → 2S 15:21

== ENCOUNTER 2019-12-23 16:39 | Observation (INO) ==
[2019-12-23] MEDS ORDERED: ONDANSETRON INJ 2 MG/ML 2 ML VIAL IV STA (17:00)
[2019-12-23] MEDS ORDERED: LACTATED RINGER'S 1,000 ML IV ONE (17:00)
[2019-12-23] MEDS ORDERED: HYDROmorphone INJ 0.5 MG/0.5 ML SYR IV STA (17:00)
--- NOTE | 2019-12-23 17:04 | Emergency Department Note ---
History of Present Illness General Chief Complaint: Illness Stated Complaint: PANCREATITIS Source: patient Mode of arrival: ambulatory Limitations: no limitations History of Present Illness Provider Complaint: abdominal pain Onset (ago): 6 hour(s) Pain Consistency: constant Location: epigastric Radiation: LLQ and RLQ Migration to: no migration Severity: similar to previous episodes Maximum Pain Intensity: 10 Current Pain Intensity: 10 Quality: + sharp Relieved By: + nothing Exacerbated By: + eating and + movement Context: + history of similar episodes (with pancreatitis) Associated Symptoms: + nausea, + vomiting and + anorexia; no diarrhea, no fever, no chills, no constipation, no dysuria, no hematemesis, no hematochezia, no melena and no hematuria Treatments prior to arrival: none This 79-year-old female patient with significant past medical history of pancrea titis presents the emergency department today, ambulatory, complaining of "I have pancreatitis again". The patient states she was recently admitted to the hospital and discharged last week. She was doing well until 11 AM this morning. At that time, she developed sudden onset of epigastric pain radiating to the lower abdomen. This was approximately 6 hours after eating breakfast. She states she had a normal breakfast for her. She denies any fever, chest pain, or dyspnea. Bowel movements have been regular. She has taken no medications for her symptoms. She states she does have a decreased appetite. Symptoms are consistent with pancreatitis she has experienced in the past. Home Medications Home Medications Medication Instructions Recorded Confirmed Type cyanocobalamin (vitamin B-12) 1,000 mcg PO QAM tab 02/27/19 12/23/19 History 1,000 mcg tablet,extended release cranberry fruit concentrate 250 mg 250 mg PO QAM tab 03/15/19 12/23/19 History chewable tablet cyclosporine 0.05 % eye drops in a 1 drp OPB Q12H 03/26/19 12/23/19 History dropperette epinephrine 0.3 mg/0.3 mL 0.3 mg IM DIRECTED PRN 03/26/19 12/23/19 History injection, auto-injector melatonin 3 mg tablet 3 mg PO HS 03/26/19 12/23/19 History multivitamin with minerals 1 tab PO QAM 03/26/19 12/23/19 History levothyroxine [Synthroid] 88 mcg PO QAM 06/21/19 12/23/19 History metronidazole 0.75 % topical cream 1 appln TOP DAILY 12/19/19 12/23/19 History Allergies Allergy/AdvReac Type Severity Reaction Status Date / Time Iodinated Contrast Media Allergy Unknown RASH Verified 12/17/19 12:21 latex Allergy Unknown HIVES Verified 12/17/19 12:21 bee venom protein (honey bee) Allergy Unknown Verified 12/17/19 12:21 Past Med/Surg History Medical History Acute pancreatitis Arthritis Hiatal hernia (Acute) Hypertension Hypothyroidism (Chronic) Lyme disease Recurrent pancreatitis Surgical History H/O cataract extraction S/P bunionectomy right foot X 2 S/P tonsillectomy and adenoidectomy age 14 years Social History Preferred Language: Burmese Communication Ability: Effective 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 Beliefs That Will Affect Care: None marital status: Current Living Situation: Spouse Current Living Situation Comment: lives with in [place] current occupational status: 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 Other Information That Helps Us Care for You: No other: 4 kids Feels Safe at Home: Yes Safety Concerns: Feels Safe At This Time Smoking Status: Never smoker Second Hand Exposure: No ; Hx Alcohol Use: No Hx Substance Use: No Seatbelt Use: always Review of Systems A total of 10 systems reviewed and were otherwise negative Physical Exam Vital Signs: Vital Signs - 24 hr 12/23/19 16:40 12/23/19 17:41 12/23/19 17:44 Temperature 37.0 C Temperature Source Oral Pulse Rate 70 64 Pulse Rate from Sp O2 Sensor 66 Pulse Rhythm Regular Pulse Strength Normal Respiratory Rate 20 14 Blood Pressure 223/112 H 198/97 H Blood Pressure Kristen n 149 126 Blood Pressure Pos ition Sitting Pulse Oximetry 96 92 94 Oxygen Delivery Me thod Room Air Room Air Oxygen Flow Rate Sepsis Recent Feve r Within 48 Hours No Sepsis New/Unexpla ined Change in Men carly Status No Sepsis Action Take n by Nursing No Action Required 12/23/19 18:00 12/23/19 19:30 12/23/19 20:01 Temperature Temperature Source Pulse Rate 63 81 77 Pulse Rate from Sp O2 Sensor 60 82 82 Pulse Rhythm Pulse Strength Respiratory Rate 14 15 22 Blood Pressure 204/101 H 184/95 H 183/86 H Blood Pressure Kristen n 131 119 120 Blood Pressure Pos ition Pulse Oximetry 93 90 95 Oxygen Delivery Me thod Oxygen Flow Rate Sepsis Recent Feve r Within 48 Hours Sepsis New/Unexpla ined Change in Men carly Status Sepsis Action Take n by Nursing 12/23/19 20:30 12/23/19 21:00 12/23/19 21:30 Temperature Temperature Source Pulse Rate 80 74 86 Pulse Rate from Sp O2 Sensor 77 75 87 Pulse Rhythm Pulse Strength Respiratory Rate 16 16 19 Blood Pressure 187/110 H 173/96 H 197/91 H Blood Pressure Kristen n 142 119 131 Blood Pressure Pos ition Pulse Oximetry 92 97 97 Oxygen Delivery Me thod Nasal Cannula Oxygen Flow Rate 2 Sepsis Recent Feve r Within 48 Hours Sepsis New/Unexpla ined Change in Men carly Status Sepsis Action Take n by Nursing 12/23/19 22:00 Temperature Temperature Source Pulse Rate 83 Pulse Rate from Sp O2 Sensor 83 Pulse Rhythm Pulse Strength Respiratory Rate 20 Blood Pressure 186/89 H Blood Pressure Kristen n 124 Blood Pressure Pos ition Pulse Oximetry 97 Oxygen Delivery Me thod Oxygen Flow Rate Sepsis Recent Feve r Within 48 Hours Sepsis New/Unexpla ined Change in Men carly Status Sepsis Action Take n by Nursing Physical Exam: VITALS: Vitals are noted on the nurse's note and reviewed by myself. Vital signs stable. GENERAL: This is an 79-year-old white female, in no acute distress, but tearful throughout examination, nondiaphoretic, well-developed well-nourished. SKIN: The skin was without rashes, erythema, edema, or bruising. There is no tenting of the skin. Capillary refill less than 2 seconds. HEAD: Normocephalic atraumatic. EYES: Conjunctivae without injection, sclerae without icterus. NECK: Supple without nuchal rigidity. No lymphadenopathy. HEART: Regular rate and rhythm without murmurs gallops or rubs. LUNGS: Clear to auscultation bilaterally without wheezes, rales or rhonchi. No retractions or accessory muscle use. ABDOMEN: Positive bowel sounds x 4. Normal tympanic percussion. Epigastric tenderness palpation. Abdomen is otherwise soft, nontender, without masses or organomegaly. Wilburn sign negative. No guarding or rebound tenderness. MUSCULOSKELETAL: No muscle atrophy, erythema, or edema noted. Full range of motion without joint tenderness in all extremities. No tenderness to palpation. Normal gait. Strength 5/5 throughout. NEURO: Patient was alert and oriented to person place and time. No focal neurological deficits. Course Course The patient was seen and evaluated as above. An order was placed for continuous cardiac monitoring. The monitor shows a normal sinus rhythm at a rate of 71 bpm. IV access obtained, labs drawn. Patient medicated with IV fluids, Zofran, and Dilaudid. Labs reviewed by myself. I discussed the findings with the patient at bedside. She was reassessed and continues to complain of pain. Patient was medicated with subsequent doses of Dilaudid. I recommended admission due to the recurrent pancreatitis. The patient was agreeable. I discussed case with the document control manager. I discussed the case with the [facility] hospitalist, Dr. Giraldo. He did agree to see and evaluate the patient for admission. Administered Medications Discontinued Medications Hydromorphone HCl (Dilaudid) 0.5 mg IV NOW STA Stop: 12/23/19 17:01 Last Admin: 12/23/19 17:31 Dose: 0.5 mg Documented by: [id number] Hydromorphone HCl (Dilaudid) 0.5 mg IV Q15M PRN PRN Reason: Pain Stop: 01/06/20 18:19 Last Admin: 12/23/19 20:27 Dose: 0.5 mg Documented by: [id number] Admin: 12/23/19 18:49 Dose: 0.5 mg Documented by: [id number] Admin: 12/23/19 18:27 Dose: 0.5 mg Documented by: [id number] Lactated Ringer's (Lr) 1,000 mls @ 999 mls/hr IV .Q1H1M ONE Stop: 12/23/19 18:00 Last Infusion: 12/23/19 18:48 Dose: 0 mls/hr Documented by: [id number] Admin: 12/23/19 17:31 Dose: 999 mls/hr Documented by: [id number] Ondansetron HCl (Zofran) 4 mg IV NOW STA Stop: 12/23/19 17:01 Last Admin: 12/23/19 17:31 Dose: 4 mg Documented by: [id number] Medical Decision Making Differential Diagnosis + peptic ulcer disease, + biliary pathology, + UTI, + obstruction, + mesenteric ischemia, + aortic pathology, + infections, + inflammatory bowel disease, + renal colic, + abdominal pain, + appendicitis, + calculus of kidney, + constipation, + diverticulitis, + gastroenteritis, + pancreatitis and + small bowel obstruction Medical Records Attestation: I reviewed the patient's medical records. Recent hospital admission reviewed. Home Medications Current Medication List: was personally reviewed by me Laboratory Data Attestation: I reviewed the patient's lab results. No leukocytosis, anemia, thrombocytopenia. Renal, hepatic function, and electrolytes without significant abnormality. Troponin negative. Lipase greater than 20,000. Result diagrams: 12/23/19 17:30 12/23/19 17:30 Lab Results 12/23/19 12/23/19 Range/Units 17:30 17:30 WBC 6.98 (4.8-10.8) K/uL RBC 4.64 (4.2-5.4) M/uL Hgb 14.8 (12.0-16.0) g/dL Hct 45.5 (37-47) % MCV 98.1 (80-100) fL MCH 31.9 (25-34) pg MCHC 32.5 (32-36) g/dL RDW Std Deviation 48.3 H (36.4-46.3) fL RDW Coeff of Estrellita 13.6 (11.5-14.5) % Plt Count 367 (130-400) K/uL MPV 9.6 (7.4-10.4) fL Immature Gran % (Auto) 0.3 % Neut % (Auto) 68.3 % Lymph % (Auto) 19.5 % [place] % (Auto) 9.3 % Eos % (Auto) 1.6 % Baso % (Auto) 1.0 % Immature Gran # (Auto) 0.02 (0.00-0.02) K/uL Neut # (Auto) 4.77 (1.4-6.5) K/uL Lymph # (Auto) 1.36 (1.2-3.4) K/uL [place] # (Auto) 0.65 H (0.11-0.59) K/uL Eos # (Auto) 0.11 (0-0.5) K/uL Baso # (Auto) 0.07 (0-0.2) K/uL Sodium 143 (136-145) mmol/L Potassium 3.7 (3.5-5.1) mmol/L Chloride 106 (98-107) mmol/L Carbon Dioxide 30 (21-32) mmol/L Anion Gap 7.0 (3-11) BUN 17 (7-18) mg/dl Creatinine 0.68 (0.6-1.2) mg/dl Est Cr Clr Drug Dosing Not Reportable Est GFR ( Amer) 95.8 Est GFR (Non-Af Amer) 82.6 BUN/Creatinine Ratio 24.8 H (10-20) Glucose 112 H (70-99) mg/dl Calcium 9.2 (8.5-10.1) mg/dl Total Bilirubin 0.4 (0.2-1) mg/dl AST 22 (15-37) U/L ALT 41 (12-78) U/L Alkaline Phosphatase 67 (45-117) U/L Troponin I < 0.015 (0-0.045) ng/ml Total Protein 7.5 (6.4-8.2) gm/dl Albumin 3.7 (3.4-5.0) gm/dl Globulin 3.8 (2.5-4.0) gm/dl Albumin/Globulin Ratio 1.0 (0.9-2) Lipase 15476 H (73-393) U/L ECG Data Attestation: I personally reviewed and interpreted this ECG as follows: Indication: abdominal pain Rate (beats per minute): 75 Rhythm: sinus rhythm Findings: + PVC; no ST depression, no T-wave inversion and no ST elevation Comparison ECG Date: from (12/17/2019) Change: the following changes noted (PVC's now present) Blood Pressure Blood Pressure Findings: Elevated blood pressure Blood Pressure Disposition: elevated BP felt to be situational MDM Narrative This 79-year-old female patient presents the emergency department today for recu rrence of her pancreatitis. The patient does have a longstanding history of pancreatitis, but is unclear of the etiology. She was recently admitted here last week for exam. Patient experienced sudden onset of severe pain while outside working in the garden earlier today. She is afebrile, denies any chest pain or dyspnea, and denies associated symptoms. Work-up here in the ED including labs show a negative troponin, and no acute ischemic changes on EKG. Lipase was elevated at greater than 20,000. Patient's pain was difficult to manage here with IV narcotics and antiemetics. She was hydrated with IV fluids. I do recommend inpatient management of her symptoms. The patient was agreeabl e. She will be admitted to the hospitalist service for ongoing management care. The chart was completed utilizing [employer] Speech voice recognition software. Grammatical errors, random word insertions, pronoun errors, and incomplete sentences are an occasional consequence of this system due to software limitations, ambient noise, and hardware issues. Any formal questions or concerns about the content, text, or information contained within the body of this dictation should be directly addressed to the provider for clarification. Impression & Plan Pancreatitis, Abdominal pain, Nausea Discharge Plan Visit Data *Final* Discharge Date/Time: 12/23/19 22:24 Chief Complaint: Illness Stated Complaint: PANCREATITIS ED Provider: Radha Grissom ED Midlevel Provider: Leslee Jamil Discharge Problem: Pancreatitis, Abdominal pain, Nausea Patient Disposition: Admitted As Inpatient Condition: Good Discharge Instructions Interventions: ED Discharge Assessment Last Done: 12/23/19 22:24
[2019-12-23 17:46] LABS: Basophils # (auto) 0.07 K/uL (0-0.2); Eosinophils # (auto) 0.11 K/uL (0-0.5); Eosinophils % (auto) 1.6 %; Hematocrit (blood only) 45.5 % (37-47); Hemoglobin 14.8 g/dL (12.0-16.0); Immature Granulocytes # (auto) 0.02 K/uL (0.00-0.02); Immature Granulocytes % (auto) 0.3 %; Lymphocytes # (auto) 1.36 K/uL (1.2-3.4); Lymphocytes % (auto) 19.5 %; Mean Corpuscular Hemoglobin 31.9 pg (25-34); Mean Corpuscular Hgb Conc 32.5 g/dL (32-36); Mean Corpuscular Volume 98.1 fL (80-100); Mean Platelet Volume 9.6 fL (7.4-10.4); Monocytes # (auto) 0.65 K/uL (0.11-0.59); Monocytes % (auto) 9.3 %; Neutrophils # (auto) 4.77 K/uL (1.4-6.5); Neutrophils % (auto) 68.3 %; Platelet Count 367 K/uL (130-400); RDW Coefficient of Variation 13.6 % (11.5-14.5); RDW Standard Deviation 48.3 fL (36.4-46.3); Red Blood Count 4.64 M/uL (4.2-5.4); White Blood Count 6.98 K/uL (4.8-10.8)
[2019-12-23 18:04] LABS: Alanine Aminotransferase 41 U/L (12-78); Albumin Level 3.7 gm/dl (3.4-5.0); Aspartate Aminotransferase 22 U/L (15-37); BUN Creatinine Ratio 24.8 (10-20); Blood Urea Nitrogen 17 mg/dl (7-18); Calcium 9.2 mg/dl (8.5-10.1); Carbon Dioxide 30 mmol/L (21-32); Chloride 106 mmol/L (98-107); Est GFR (African American) 95.8; Est GFR (Non-African American) 82.6; Glucose 112 mg/dl (70-99); Potassium 3.7 mmol/L (3.5-5.1); Sodium 143 mmol/L (136-145)
[2019-12-23 18:09] LABS: Alkaline Phosphatase 67 U/L (45-117); Bilirubin,Total 0.4 mg/dl (0.2-1); Globulin 3.8 gm/dl (2.5-4.0); Lipase 20861 U/L (73-393); Total Protein 7.5 gm/dl (6.4-8.2); Troponin I < 0.015 ng/ml (0-0.045)
[2019-12-23] MEDS: HYDROmorphone INJ 0.5 MG/0.5 ML SYR IV PRN ×3 (18:27→20:27)
--- NOTE | 2019-12-23 21:19 | History & Physical Report ---
Date of Service December 23, 2019 Assessment & Plan (1) Pancreatitis: 79 y/o F with PMH Hypothyroidism, peripheral neuropathy, and multiple hospitalizations for recurrent pancreatitis presents with the same found to have lipase 20,000. Acute Recurrent Pancreatitis -MRCP from previous hospitalization last week (12/17/19): Peripancreatic fluid surrounding the pancreatic tail consistent with the patient's known history of acute pancreatitis. This remains unchanged. No filling defects within the normal caliber common bile duct. No evidence for pancreas divisum -Previous work-ups of CTs, U/S, and MRCP as above have been unrevealing with respect to etiology . ?Sphincter of Oddi spasm -will defer any additional imaging for now -no family h/o pancreatitis. No ETOH use. 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 IgG subclasses showed decreased IgG2 but other subclasses were normal -Lipase 08194 on admission. Repeat in AM -NPO -IV LR at 150 mls/hr -Pain management with prn IV dilaudid. Pt does not get relief from morphine -IV Protonix -IV Zofran prn for nausea -Will consult [facility] this admission for further recommendations. Plan was for EUS in 4-6wks, but has not had to date -Will also consult Dr. Dey for re-evaluation for possible cholecystectomy to help prevent pancreatitis recurrence HTN -pt does not take meds for this -BP hovering in 180s, perhaps 2/2 pain. Looking at previous trends, looks like it is consistently in range that would require medication management -prn IV Lopressor 5mg q4h for systolic >180 Hypothyroidism -TSH 1.December -cont synthroid 88mcg FEN/GI: LR at 150. NPO. DVT Prophylaxis: Lovenox SQ 40mg DNR/DNI Dispo: Med Tele for any possible IV HTN med use History of Present Illness Chief Complaint: abd pain Primary Care Provider: Rob Mayers MD 79 y/o F with PMH Hypothyroidism, peripheral neuropathy, and multiple hospitalizations for recurrent pancreatitis presents with abd pain. Last hospitalization 12/17/19-12/18/19. Previous workup for autoimmune pancreatitis showed + BRITTA, but normal IgG4. She did have signs of small pancreas cyst and biliary sludge. Pt had been evaluated by Dr. Dey previously and opted to defer cholecystectomy. Pt dc'd with plan for repeat EUS in 4-6 weeks time with Robyn ARREAGA. Abd pain started around 11AM this morning. Pt states that this feels exactly like her previous episodes of pancreatitis. Describes dull constant epigastric pain that radiates to umbilicus and shoulders b/l. 05/23 severity. Made worse with eating (last oral intake 7AM) and movement, no alleviating factors. Associated N/V (NBNB) and anorexia. Pt otherwise denies fevers, chills, hematemesis, hematochezia, melena, ingestion of suspicious foods, CP, SOB, BROWN, urinary sxs, sick contacts or recent travel. Denies any new medications or use of herbal substances. Pt with no other acute concerns or complaints. Pertinent Labs: Lipase 69877, Glu 112. Otherwise largely unremarkable MRCP (12/17/19): Peripancreatic fluid surrounding the pancreatic tail consistent with the patient's known history of acute pancreatitis. This remains unchanged. No filling defects within the normal caliber common bile duct. No evidence for pancreas divisum. ER Course: IV Dilaudid 0.5 mg, IV Zofran, LR Social Hx: Denies any tobacco, alcohol, or illicit drug use. Allergies Allergy/AdvReac Type Severity Reaction Status Date / Time Iodinated Contrast Media Allergy Unknown RASH Verified 12/17/19 12:21 latex Allergy Unknown HIVES Verified 12/17/19 12:21 bee venom protein (honey bee) Allergy Unknown Verified 12/17/19 12:21 Home Medications Home Medications Medication Instructions Recorded Confirmed Type cyanocobalamin (vitamin B-12) 1,000 mcg PO QAM tab 02/27/19 12/23/19 History 1,000 mcg tablet,extended release cyclosporine 0.05 % eye drops in a 1 drp OPB Q12H 03/26/19 12/23/19 History dropperette epinephrine 0.3 mg/0.3 mL 0.3 mg IM DIRECTED PRN 03/26/19 12/23/19 History injection, auto-injector melatonin 3 mg tablet 3 mg PO HS 03/26/19 12/23/19 History multivitamin with minerals 1 tab PO QAM 03/26/19 12/23/19 History levothyroxine [Synthroid] 88 mcg PO QAM 06/21/19 12/23/19 History metronidazole 0.75 % topical cream 1 appln TOP DAILY 12/19/19 12/23/19 History ciprofloxacin HCl 250 mg PO BID 3 Days #6 tab 12/24/19 Rx Past Med/Surg History Medical History Acute pancreatitis Arthritis Hiatal hernia (Acute) Hypertension Hypothyroidism (Chronic) Lyme disease Recurrent pancreatitis Surgical History H/O cataract extraction S/P bunionectomy right foot X 2 S/P tonsillectomy and adenoidectomy age 14 years Social History Preferred Language: [place] Communication Ability: Effective 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 Required: No Beliefs That Will Affect Care: None marital status: Current Living Situation: Spouse Current Living Situation Comment: lives with in [place] current occupational status: 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 Other Information That Helps Us Care for You: No other: 4 kids Feels Safe at Home: Yes Safety Concerns: Feels Safe At This Time Smoking Status: Never smoker Second Hand Exposure: No ; Hx Alcohol Use: No Hx Substance Use: No Seatbelt Use: always Review of Systems Review of Systems: All systems reviewed & are unremarkable except as noted in HPI & below Physical Exam Constitutional: WD/WN, vitals as above Eyes: PERRL, conjunctivae normal, anicteric sclerae ENMT: external ear and nose normal, oropharynx normal Respiratory: normal respiratory effort, lungs clear to auscultation Cardiovascular: RRR, no murmur, no edema Gastrointestinal (Abdomen): Inspection/Auscultation: normal bowel sounds Percussion/Palpation: + abdomen tender (TTP Epigastric); no guarding Skin: no rashes, warm and dry Psychiatric: Orientation: alert and oriented x 3 Affect: + anxious affect Results & Data Results & Data ([facility]) Vital Signs (Past 12 Hours) Vital Signs Temp Pulse Resp BP Pulse Ox 12/23/19 19:30 81 15 184/95 H 90 12/23/19 18:00 63 14 204/101 H 93 12/23/19 17:44 94 12/23/19 17:41 64 14 198/97 H 92 12/23/19 16:40 37.0 C 70 20 223/112 H 96 Laboratory Results Laboratory Results - last 24 hr 12/23/19 12/23/19 17:30 17:30 WBC 6.98 RBC 4.64 Hgb 14.8 Hct 45.5 MCV 98.1 MCH 31.9 MCHC 32.5 RDW Std Deviation 48.3 H RDW Coeff of Estrellita 13.6 Plt Count 367 MPV 9.6 Immature Gran % (Auto) 0.3 Neut % (Auto) 68.3 Lymph % (Auto) 19.5 Payne % (Auto) 9.3 Eos % (Auto) 1.6 Baso % (Auto) 1.0 Immature Gran # (Auto) 0.02 Neut # (Auto) 4.77 Lymph # (Auto) 1.36 Payne # (Auto) 0.65 H Eos # (Auto) 0.11 Baso # (Auto) 0.07 Sodium 143 Potassium 3.7 Chloride 106 Carbon Dioxide 30 Anion Gap 7.0 BUN 17 Creatinine 0.68 Est Cr Clr Drug Dosing Not Reportable Est GFR ( Amer) 95.8 Est GFR (Non-Af Amer) 82.6 BUN/Creatinine Ratio 24.8 H Glucose 112 H Calcium 9.2 Total Bilirubin 0.4 AST 22 ALT 41 Alkaline Phosphatase 67 Troponin I < 0.015 Total Protein 7.5 Albumin 3.7 Globulin 3.8 Albumin/Globulin Ratio 1.0 Lipase 70841 H Medications Administered Current Inpatient Medications Hydromorphone HCl (Dilaudid) 0.5 mg IV Q15M PRN PRN Reason: Pain Stop: 01/06/20 18:19 Last Admin: 12/23/19 20:27 Dose: 0.5 mg Documented by: Code Status & VTE Plan Code Status DNR/DNI Supervising Physician Co-Signing Physician Notes Attending addendum: I have physically seen this patient, have supervised the medical residents activities, and agree with the H&P unless as otherwise noted. Assessment and Plan: Recurrent pancreatitis- Question whether her previous episodes of pancreatitis have ever actually completely normalized, or whether this is acute on chronic. N.p.o. IV fluids per protocol. Follow [place] [address]. Famotidine 20 mg IV every 12 hours. Zofran 4 mg IV every 6 hours PRN. She follows routinely with [facility], will be consulted. She did have a tentative EUS scheduled for 4 [address] Damian Dey, general surgery, but she reports that he is told for the past that she is not a candidate for cholecystectomy. She has had a significant work-up in the past, including CTs, ultrasound and MRCP. Question sphincter of Oddi spasm. Discussed possibility of pancreatic enzymes. Remainder of orders and notations as noted. Resident Activity Tracking Resident Involvement: Resident Care Provided Care Provided: Adult Hospital Medicine (1) Pancreatitis Acute pancreatitis complication: no infection or necrosis Chronicity: acute Pancreatitis type: unspecified pancreatitis type Qualified Code(s): K85.90 - Acute pancreatitis without necrosis or infection, unspecified
[2019-12-23] MEDS ORDERED: ONDANSETRON INJ 2 MG/ML 2 ML VIAL IV PRN (22:47)
[2019-12-23] MEDS ORDERED: ACETAMINOPHEN 325 MG TAB PO PRN (22:47)
[2019-12-23] MEDS ORDERED: ALUMINUM/MAGNESIUM SUSP 30 ML UDC PO PRN (22:47)
[2019-12-23] MEDS ORDERED: METOPROLOL TARTRATE 1 MG/ML VIAL IV PRN (22:47)
[2019-12-23] MEDS ORDERED: HYDROmorphone INJ 1 MG/ML SYRINGE IV PRN (22:47)
[2019-12-23] MEDS ORDERED: PATIENT'S HEIGHT AND/OR WEIGHT NEEDED SCH (23:00)
[2019-12-23] MEDS: LACTATED RINGER'S 1,000 ML IV SCH (23:15)
[2019-12-23] MEDS: PANTOprazole 40 MG in SYRINGE 0 ML IV SCH (23:34)
[2019-12-24 00:08] LABS: Appearance Urine Cloudy (Clear); Bacteria Urine Automated 4+ (Negative); Bilirubin Urine Negative (Negative); Blood Urine 1+ (Negative); Color Urine Yellow; Epithelial Cell Urine Auto 20-30 /lpf (0-5); Glucose Urine UA Negative (Negative); Ketones Urine Negative (Negative); Leukocyte Esterase Urine 1+ (Negative); Nitrite Urine Positive (Negative); Protein Urine Negative (Negative); Specific Gravity Urine 1.016 (1.000-1.030); Urobilinogen Urine Negative (Negative)
[2019-12-24] MEDS: LEVOTHYROXINE SODIUM 88 MCG TABLET PO SCH ×2 (05:47→07:42)
[2019-12-24] MEDS: LACTATED RINGER'S 1,000 ML IV SCH ×2 (06:01→13:21)
[2019-12-24 06:22] LABS: Basophils # (auto) 0.05 K/uL (0-0.2); Basophils % (auto) 0.7 %; Eosinophils # (auto) 0.13 K/uL (0-0.5); Eosinophils % (auto) 1.7 %; Hematocrit (blood only) 40.7 % (37-47); Immature Granulocytes # (auto) 0.01 K/uL (0.00-0.02); Immature Granulocytes % (auto) 0.1 %; Lymphocytes # (auto) 2.07 K/uL (1.2-3.4); Lymphocytes % (auto) 27.2 %; Mean Corpuscular Hgb Conc 31.9 g/dL (32-36); Mean Corpuscular Volume 100.2 fL (80-100); Mean Platelet Volume 9.6 fL (7.4-10.4); Monocytes # (auto) 0.68 K/uL (0.11-0.59); Monocytes % (auto) 8.9 %; Neutrophils # (auto) 4.68 K/uL (1.4-6.5); Neutrophils % (auto) 61.4 %; Platelet Count 326 K/uL (130-400); RDW Coefficient of Variation 13.8 % (11.5-14.5); RDW Standard Deviation 50.6 fL (36.4-46.3); Red Blood Count 4.06 M/uL (4.2-5.4); White Blood Count 7.62 K/uL (4.8-10.8)
[2019-12-24 06:35] LABS: INR 1.1 (0.9-1.1); Prothrombin Time 11.2 Seconds (9.0-12.0)
[2019-12-24 06:57] LABS: Albumin Level 2.8 gm/dl (3.4-5.0); BUN Creatinine Ratio 20.4 (10-20); Calcium 8.5 mg/dl (8.5-10.1); Creatinine Clr Calc Pharmacy 62.4 ml/min; Est GFR (African American) 97.2; Est GFR (Non-African American) 83.9
[2019-12-24 07:07] LABS: Albumin Globulin Ratio 0.9 (0.9-2); Bilirubin,Total 0.4 mg/dl (0.2-1); Total Protein 5.8 gm/dl (6.4-8.2)
--- NOTE | 2019-12-24 08:47 | Gastrointestinal Consultation ---
Date of Consultation December 24, 2019 Assessment & Plan (1) Pancreatitis: 79 year old female with recurrent pancreatitis w/ unknown etiology. Still has a gallbladder, prior EUS questioned GB sludge. Was to have OP EUS+/-ERCP in 4 weeks but yet to schedule this. - MRCP last week w/o filling defects, normal common bile duct w/o evidence for pancreas divisum - No family h/o pancreatitis - No ETOH use - Is on a plethora of supplements but does not know the names, asked to bring in list - Previous workup for autoimmune pancreatitis: BRITTA positive, IgG subclasses showed decreased - Appreciate general surgery consultation - Continue LR - Antiemetics PRN - Analgesia PRN - No GI contraindication for clear liquid diet GI to watch peripherally. Thank you for allowing us to participate in the care of this patient. Please call with any acute changes, questions or concerns. Please see addendum below with additional recommendation from my supervising physician. Present on Admission?: Yes Supervising Physician Co-Signing Physician Notes I have personally seen and examined the patient with LEYDI Alfredo. Her note reflects my exam and findings. I agree with her impression and plan. Most likely from gall stone/sludge disease. We discussed EUS/ERCP which would be a conservative approach vs lap chris which patient does not want. Will arrange EUS/ERCP. Peyman Barkley M.D. History of Present Illness Reason for Consultation: pancreatitis Requesting Physician: Aura Attending Physician: Juno Chavarria MD History of Present Illness 79 year old female with recurrent pancreatitis last admitted in December presented with 2/3 days of epigastric and left sided abdominal pain, nausea w/o vomiting. Notes pain was severe, sharp, stabbing and felt similar to prior pancreatitis episodes. In the ED, labs significant for lipase 20,000 with normal liver enzymes. No repeat abd imaging was obtained. This AM she tells me she feels well, denies abd pain, nausea/vomiting. Wants to eat and go home. EUS 2018: A cystic lesion was seen in the pancreatic head. There was no sign of significant pathology in the common bile duct. Hyperechoic material consistent with sludge was visualized endosonographically in the gallbladder body. There was no evidence of significant pathology in the left lobe of the liver. The celiac trunk was endosonographically normal.No specimens collected. EUS 2017: A cystic lesion was seen in the pancreatic head.There was no sign of significant pathology in the common bile duct. There was no evidence of significant pathology in the left lobe of the liver. The celiac trunk was endosonographically normal. No specimens collected. Allergies Allergy/AdvReac Type Severity Reaction Status Date / Time Iodinated Contrast Media Allergy Unknown RASH Verified 12/17/19 12:21 latex Allergy Unknown HIVES Verified 12/17/19 12:21 bee venom protein (honey bee) Allergy Unknown Verified 12/17/19 12:21 Home Medications Home Medications Medication Instructions Recorded Confirmed Type cyanocobalamin (vitamin B-12) 1,000 mcg PO QAM tab 02/27/19 12/23/19 History 1,000 mcg tablet,extended release cranberry fruit concentrate 250 mg 250 mg PO QAM tab 03/15/19 12/23/19 History chewable tablet cyclosporine 0.05 % eye drops in a 1 drp OPB Q12H 03/26/19 12/23/19 History dropperette epinephrine 0.3 mg/0.3 mL 0.3 mg IM DIRECTED PRN 03/26/19 12/23/19 History injection, auto-injector melatonin 3 mg tablet 3 mg PO HS 03/26/19 12/23/19 History multivitamin with minerals 1 tab PO QAM 03/26/19 12/23/19 History levothyroxine [Synthroid] 88 mcg PO QAM 06/21/19 12/23/19 History metronidazole 0.75 % topical cream 1 appln TOP DAILY 12/19/19 12/23/19 History Patient History Medical History Acute pancreatitis Arthritis Hiatal hernia (Acute) Hypertension Hypothyroidism (Chronic) Lyme disease Recurrent pancreatitis Surgical History H/O cataract extraction S/P bunionectomy right foot X 2 S/P tonsillectomy and adenoidectomy age 14 years Social History Preferred Language: Beninese Communication Ability: Effective Gaming Host Required: No Beliefs That Will Affect Care: None marital status: Current Living Situation: Spouse Current Living Situation Comment: lives with in [place] current occupational status: 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 Other Information That Helps Us Care for You: No other: 4 kids Feels Safe at Home: Yes Safety Concerns: Feels Safe At This Time Smoking Status: Never smoker Second Hand Exposure: No ; Hx Alcohol Use: No Hx Substance Use: No Seatbelt Use: always Review of Systems Constitutional: no fever and no chills Respiratory: no cough and no dyspnea Cardiovascular: no chest pain and no dyspnea Gastrointestinal: no abdominal pain, no vomiting, no coffee ground emesis, no hematemesis, no blood in stools and no melena Physical Exam Constitutional: well nourished Respiratory: normal respiratory effort Gastrointestinal (Abdomen): Inspection/Auscultation: normal bowel sounds Percussion/Palpation: abdomen soft; abdomen nontender Skin: no rashes, warm and dry Results & Data ([facility]) Vital Signs (Past 12 Hours) Vital Signs Temp Pulse Pulse Pulse Resp BP BP 12/24/19 07:20 36.4 C L 64 22 164/84 H 12/24/19 07:15 61 12/24/19 03:38 36.9 C 67 18 12/24/19 00:12 78 12/24/19 00:09 36.5 C 76 17 12/23/19 23:34 71 12/23/19 23:05 36.6 C 71 18 12/23/19 22:00 83 20 186/89 H 12/23/19 21:30 86 19 197/91 H 12/23/19 21:00 74 16 173/96 H BP Pulse Ox 12/24/19 07:20 92 12/24/19 07:15 12/24/19 03:38 129/74 93 12/24/19 00:12 12/24/19 00:09 157/82 H 93 12/23/19 23:34 154/82 H 12/23/19 23:05 187/98 H 91 12/23/19 22:00 97 12/23/19 21:30 97 12/23/19 21:00 97 Laboratory Results 12/24/19 12/24/19 12/24/19 Range/Units 05:44 05:44 05:44 WBC 7.62 (4.8-10.8) K/uL RBC 4.06 L (4.2-5.4) M/uL Hgb 13.0 (12.0-16.0) g/dL Hct 40.7 (37-47) % MCV 100.2 H (80-100) fL MCH 32.0 (25-34) pg MCHC 31.9 L (32-36) g/dL RDW Std Deviation 50.6 H (36.4-46.3) fL RDW Coeff of Estrellita 13.8 (11.5-14.5) % Plt Count 326 (130-400) K/uL MPV 9.6 (7.4-10.4) fL Immature Gran % (Auto) 0.1 % Neut % (Auto) 61.4 % Lymph % (Auto) 27.2 % Boundary % (Auto) 8.9 % Eos % (Auto) 1.7 % Baso % (Auto) 0.7 % Immature Gran # (Auto) 0.01 (0.00-0.02) K/uL Neut # (Auto) 4.68 (1.4-6.5) K/uL Lymph # (Auto) 2.07 (1.2-3.4) K/uL Boundary # (Auto) 0.68 H (0.11-0.59) K/uL Eos # (Auto) 0.13 (0-0.5) K/uL Baso # (Auto) 0.05 (0-0.2) K/uL PT 11.2 (9.0-12.0) Seconds INR 1.1 (0.9-1.1) Sodium 144 (136-145) mmol/L Potassium 4.0 (3.5-5.1) mmol/L Chloride 110 H (98-107) mmol/L Carbon Dioxide 27 (21-32) mmol/L Anion Gap 7.0 (3-11) BUN 13 (7-18) mg/dl Creatinine 0.65 (0.6-1.2) mg/dl Est Cr Clr Drug Dosing 62.4 Est GFR ( Amer) 97.2 Est GFR (Non-Af Amer) 83.9 BUN/Creatinine Ratio 20.4 H (10-20) Glucose 84 (70-99) mg/dl Calcium 8.5 (8.5-10.1) mg/dl Total Bilirubin 0.4 (0.2-1) mg/dl AST 16 (15-37) U/L ALT 31 (12-78) U/L Alkaline Phosphatase 51 (45-117) U/L Troponin I (0-0.045) ng/ml Total Protein 5.8 L D (6.4-8.2) gm/dl Albumin 2.8 L (3.4-5.0) gm/dl Globulin 3.0 (2.5-4.0) gm/dl Albumin/Globulin Ratio 0.9 (0.9-2) Lipase 8070 H (73-393) U/L Urine Color Urine Appearance (Clear) Urine pH (4.5-7.5) Ur Specific [place] (1.000-1.030) Urine Protein (Negative) Urine Glucose (UA) (Negative) Urine Ketones (Negative) Urine Blood (Negative) Urine Nitrite (Negative) Urine Bilirubin (Negative) Urine Urobilinogen (Negative) Ur Leukocyte Esterase (Negative) Urine WBC (Auto) (0-5) /hpf Urine RBC (Auto) (0-4) /hpf U Hyaline Cast (Auto) (0-5) /lpf U Epithel Cells (Auto) (0-5) /lpf Urine Bacteria (Auto) (Negative) 12/23/19 12/23/19 12/23/19 Range/Units 23:19 17:30 17:30 WBC 6.98 (4.8-10.8) K/uL RBC 4.64 (4.2-5.4) M/uL Hgb 14.8 (12.0-16.0) g/dL Hct 45.5 (37-47) % MCV 98.1 (80-100) fL MCH 31.9 (25-34) pg MCHC 32.5 (32-36) g/dL RDW Std Deviation 48.3 H (36.4-46.3) fL RDW Coeff of Estrellita 13.6 (11.5-14.5) % Plt Count 367 (130-400) K/uL MPV 9.6 (7.4-10.4) fL Immature Gran % (Auto) 0.3 % Neut % (Auto) 68.3 % Lymph % (Auto) 19.5 % Boundary % (Auto) 9.3 % Eos % (Auto) 1.6 % Baso % (Auto) 1.0 % Immature Gran # (Auto) 0.02 (0.00-0.02) K/uL Neut # (Auto) 4.77 (1.4-6.5) K/uL Lymph # (Auto) 1.36 (1.2-3.4) K/uL Boundary # (Auto) 0.65 H (0.11-0.59) K/uL Eos # (Auto) 0.11 (0-0.5) K/uL Baso # (Auto) 0.07 (0-0.2) K/uL PT (9.0-12.0) Seconds INR (0.9-1.1) Sodium 143 (136-145) mmol/L Potassium 3.7 (3.5-5.1) mmol/L Chloride 106 (98-107) mmol/L Carbon Dioxide 30 (21-32) mmol/L Anion Gap 7.0 (3-11) BUN 17 (7-18) mg/dl Creatinine 0.68 (0.6-1.2) mg/dl Est Cr Clr Drug Dosing Not Reportable Est GFR ( Amer) 95.8 Est GFR (Non-Af Amer) 82.6 BUN/Creatinine Ratio 24.8 H (10-20) Glucose 112 H (70-99) mg/dl Calcium 9.2 (8.5-10.1) mg/dl Total Bilirubin 0.4 (0.2-1) mg/dl AST 22 (15-37) U/L ALT 41 (12-78) U/L Alkaline Phosphatase 67 (45-117) U/L Troponin I < 0.015 (0-0.045) ng/ml Total Protein 7.5 (6.4-8.2) gm/dl Albumin 3.7 (3.4-5.0) gm/dl Globulin 3.8 (2.5-4.0) gm/dl Albumin/Globulin Ratio 1.0 (0.9-2) Lipase 31646 H (73-393) U/L Urine Color Yellow Urine Appearance Cloudy A (Clear) Urine pH 7.0 (4.5-7.5) Ur Specific [place] 1.016 (1.000-1.030) Urine Protein Negative (Negative) Urine Glucose (UA) Negative (Negative) Urine Ketones Negative (Negative) Urine Blood 1+ H (Negative) Urine Nitrite Positive A (Negative) Urine Bilirubin Negative (Negative) Urine Urobilinogen Negative (Negative) Ur Leukocyte Esterase 1+ H (Negative) Urine WBC (Auto) 10-30 H (0-5) /hpf Urine RBC (Auto) 5-10 H (0-4) /hpf U Hyaline Cast (Auto) 1-5 (0-5) /lpf U Epithel Cells (Auto) 20-30 H (0-5) /lpf Urine Bacteria (Auto) 4+ H (Negative) (1) Pancreatitis Acute pancreatitis complication: unspecified Chronicity: acute Pancreatitis type: idiopathic Qualified Code(s): K85.00 - Idiopathic acute pancreatitis without necrosis or infection
[2019-12-24] MEDS ORDERED: CEROVITE ADV FORMULA TAB PO SCH (09:00)
[2019-12-24] MEDS ORDERED: CRANBERRY FRUIT 250 MG PO SCH (09:00)
[2019-12-24] MEDS ORDERED: ENOXAPARIN INJ 40 MG/0.4 ML SYR SQ SCH (09:00)
[2019-12-24] MEDS ORDERED: CYANOCOBALAMIN 500 MCG TABLET (VITAMIN B-12) PO SCH (09:00)
[2019-12-24] MEDS: PANTOprazole 40 MG in SYRINGE 0 ML IV SCH (09:56)
--- NOTE | 2019-12-24 14:48 | Discharge Summary ---
Date of Service December 24, 2019 Admission HPI Per Admitting Provider 79 y/o F with PMH Hypothyroidism, peripheral neuropathy, and multiple hospitalizations for recurrent pancreatitis presents with abd pain. Last hospitalization 12/17/19-12/18/19. 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 She did have signs of small pancreas cyst and biliary sludge. Pt had been evaluated by Dr. Dey previously and opted to defer cholecystectomy. Pt dc'd with plan for repeat EUS in 4-6 weeks time with Robyn ARREAGA. Abd pain started around 11AM this morning. Pt states that this feels exactly like her previous episodes of pancreatitis. Describes dull constant epigastric p ain that radiates to umbilicus and shoulders b/l. 10/10 severity. Made worse with eating (last oral intake 7AM) and movement, no alleviating factors. Associated N/V (NBNB) and anorexia. Pt otherwise denies fevers, chills, hematemesis, hematochezia, melena, ingestion of suspicious foods, CP, SOB, BROWN, urinary sxs, sick contacts or recent travel. Denies any new medications or use of herbal substances. Pt with no other acute concerns or complaints. Pertinent Labs: Lipase 99759, Glu 112. Otherwise largely unremarkable MRCP (12/17/19): Peripancreatic fluid surrounding the pancreatic tail consistent with the patient's known history of acute pancreatitis. This remains unchanged. No filling defects within the normal caliber common bile duct. No evidence for pancreas divisum. ER Course: IV Dilaudid 0.5 mg, IV Zofran, LR Social Hx: Denies any tobacco, alcohol, or illicit drug use. Admission Exam Per Admitting Provider Constitutional: WD/WN, vitals as above Eyes: PERRL, conjunctivae normal, anicteric sclerae ENMT: external ear and nose normal, oropharynx normal Respiratory: normal respiratory effort, lungs clear to auscultation Cardiovascular: RRR, no murmur, no edema Gastrointestinal (Abdomen): Inspection/Auscultation: normal bowel sounds Percussion/Palpation: + abdomen tender (TTP Epigastric); no guarding Skin: no rashes, warm and dry Psychiatric: Orientation: alert and oriented x 3 Affect: + anxious affect Principal Diagnosis Recurrent idiopathic pancreatitis Uncomplicated urinary tract infection Discharge Exam Constitutional well developed; no acute distress Respiratory normal respiratory effort, lungs clear to auscultation Cardiovascular Rate/Rhythm: regular rate and regular rhythm Gastrointestinal (Abdomen) Inspection/Auscultation: abdomen normal to inspection and normal bowel sounds Percussion/Palpation: abdomen soft; abdomen nontender, no guarding and abdomen not rigid Skin no rashes, warm and dry Neurologic moves all extremities and awake; not confused Psychiatric A+Ox3, euthymic affect Discharge Data Allergies Allergy/AdvReac Type Severity Reaction Status Date / Time Iodinated Contrast Media Allergy Unknown RASH Verified 12/17/19 12:21 latex Allergy Unknown HIVES Verified 12/17/19 12:21 bee venom protein (honey bee) Allergy Unknown Verified 12/17/19 12:21 Consultations 12/23/19 20:45 ED Decision to Admit Stat 12/23/19 22:47 Consult Gastroenterology Routine Consult General Surgery Routine Hospital Course (1) Pancreatitis: Lesli Vidales is an 79 year old female with recurrent pancreatitis ad mitted to [facility] overnight from December 22 to 2019 due to acute pancreatitis. Her abdominal pain resolved overnight and she was reviewed by gastroenterology with previous plan in place for EUS/ERCP as an outpatient. After discussing with the gastroenterology team and patient tolerating clear liquids diet she was deemed medically stable for discharge. Recommended discontinuing AZO and lutein supplementation to see if this helps with her pancreatitis. Recommend resuming lutein in 1-2 months if having no effect or positive effect on pancreatitis to see if it reoccurs. Although no known association of pancreatitis with these supplements. UA concerning for UTI. Full culture pending at discharge. Since she takes AZO unclear if she has dysuria therefore recommended treating with ciprofloxacin 3 days. She should stick to GERD precaution and diet given hiatal hernia and low fat diet due to her pancreatitis. Total Time Total Time Spent Total Time Spent (In Minutes): 40 Discharge Plan Discharge Items Patient Disposition: Home - Self-Care Reason For Visit: PANCREATITIS Discharge Diagnosis: Recurrent idiopathic pancreatitis Uncomplicated urinary tract infection Condition on Discharge: Good Activity: Resume your previous activity Non-emergency contact: Primary Care Provider Call non-emergency contact if: you have any medication questions and your symptoms worsen Follow-up/Referrals: Rob Mayers MD [Primary Care Provider] - Diet: Low Fat Addtl Attending Provider Instructions: You were admitted to [facility] overnight from December 22 to 2019 due to acute pancreatitis. Your abdominal pain resolved overnight and you were reviewed by gastroenterology with previous plan in place for EUS/ERCP as an outpatient. Continue to drink plenty of fluids in the next 24-48 hours. Recommend discontinuing AZO and lutein supplementation to see if this helps with your pancreatitis. Recommend resuming lutein in 1-2 months if having no effect or positive effect on pancreatitis to see if it reoccurs. Although no known association of pancreatitis with these supplements. Your urine analysis also suggested you have a urine tract infection. Recommend treating this with course of antibiotics as prescribed below. Recommend sticking to a low fat diet. Recommend avoiding all GERD related foods such as acidic (tomatoes, citrus fruits) foods, spicy foods given your large hiatal hernia. Sleep with head of bed > 30 degrees. Avoid eating close to your bed time. Kind regards, Dr Juno Chavarria Pending Studies at Discharge: Yes (Urine culture) Stand-Alone Forms: My [facility] [employer], Smoking Cessation Medications and DC Order Prescriptions: Continued metronidazole 0.75 % cream 1 appln TOP DAILY RF: 0 cyanocobalamin (vitamin B-12) 1,000 mcg tablet extended release 1,000 mcg PO QAM RF: 0 Restasis 0.05 % dropperette 1 drp OPB Q12H RF: 0 epinephrine [EpiPen] 0.3 mg/0.3 mL auto-injector 0.3 mg IM DIRECTED PRN (Reason: Allergic Reaction) RF: 0 melatonin 3 mg tablet 3 mg PO HS RF: 0 levothyroxine [Synthroid] 88 mcg tablet 88 mcg PO QAM RF: 0 multivitamin with minerals tablet 1 tab PO QAM RF: 0 Discontinued Azo Cranberry 250 mg tablet,chewable 250 mg PO QAM RF: 0 No Action amoxicillin-pot clavulanate [Augmentin] 500-125 mg tablet 1 tab PO BID Qty: 10 RF: 0 Discharge Orders: Discharge Order (Routine); Ordered 12/24/19 Ordered By: Juno Chavarria Admission Data Admit Date/Time: 12/23/19 22:01 Attending Provider: Juno Chavarria Admit Provider: Scar Snow Primary Care Provider: Rob Mayers Other Providers: Amari Giraldo ; Peyman Barkley ; Damian Dey Other Interventions: Discharge Summary Assessment (RN) Last Done: 12/24/19 14:02 DC Date/Time DO NOT enter until pt leaves facility: 12/24/19 16:27 Coding Level of Care Code D/C Day Management >30 mins Diagnoses Pancreatitis K85.00 Acute pancreatitis complication: unspecified Chronicity: acute Pancreatitis type: idiopathic
--- NOTE | 2019-12-25 04:57 | Billing Data ---
Date of Service December 25, 2019 Coding Level of Care Code 79657 OBS Care - Level 3
--- NOTE | 2019-12-25 05:12 | Electrocardiogram Report ---
Test Reason : Blood Pressure : / mmHG Vent. Rate : 075 BPM Atrial Rate : 075 BPM P-R Int : 184 ms QRS Dur : 096 ms QT Int : 394 ms P-R-T Axes : 042 -14 050 degrees QTc Int : 439 ms Sinus rhythm with occasional Premature ventricular complexes Possible Left atrial enlargement Septal infarct , age undetermined Abnormal ECG When compared with ECG of 17-DEC-2019 12:35, Premature ventricular complexes are now Present Septal infarct is now Present Confirmed by Robert Gonzalez ([id number]) on 12/25/2019 5:12:41 AM Referred By: REFERRED SELF Confirmed By:Robert Gonzalez
== END 2019-12-24 16:27 | disposition home or self-care (01) ==
LOC: ED 16:39 → INTOOBSV 22:01 → 2N 22:01 → SUATTDRO 22:01 → 2N 22:24
DX: Z91.040 Latex allergy status; Z66 Do not resuscitate; Z91.030 Bee allergy status; E03.9 Hypothyroidism, unspecified; Z79.890 Hormone replacement therapy; G62.9 Polyneuropathy, unspecified; K85.90 Acute pancreatitis without necrosis or infection, unspecified; I10 Essential (primary) hypertension; Z91.041 Radiographic dye allergy status; Z79.899 Other long term (current) drug therapy; K86.1 Other chronic pancreatitis; K44.9 Diaphragmatic hernia without obstruction or gangrene

== ENCOUNTER 2021-06-10 17:54 | Inpatient (IN) ==
[~2021-06-10 17:54] MED LIST changes: -CRAN1TAB PO; -CYAN10005 PO; -CYCL0.052 OPB; +ETOMIDATE 2 MG/ML 20 ML VIAL IV ONE; -KRIL1000 PO; -LUTE6TAB PO; -MULT-884 PO; -PANC1200 PO; +ROCURONIUM BROMIDE 10 MG/ML 5 ML VIAL IV ONE; -SYN88 PO; -ZYR10 PO
[2021-06-10] MEDS ORDERED: ONDANSETRON INJ 2 MG/ML 2 ML VIAL IV STA (17:59)
[2021-06-10] MEDS ORDERED: SODIUM CHLORIDE 0.9% 500 ML IV STA (17:59)
--- NOTE | 2021-06-10 18:08 | Emergency Department Note ---
Impression & Plan Acute pancreatitis, Abdominal pain, acute, epigastric ED Provider Note NAME: ABHAY FLORES AGE: 81 SEX: F : 1940 ARRIVES VIA: Ambulance INFORMANT: Patient, EMS ED PROVIDER(S): Rob Wong DO CHIEF COMPLAINT: Abdominal pain HPI: The patient is an 81-year-old female who presented to the emergency department for an evaluation of upper abdominal pain. The patient states that she has had upper abdominal pain throughout the day. She called 911 because the pain became severe. The patient received Toradol and Zofran as well as IV fluids prior to arrival. She was noted to have very elevated blood pressure. She was complaining of some epigastric and chest pain. Right now she localizes her pain to her upper abdomen. She states it also goes to her back. She has a history of chronic pancreatitis. She denies having any chest pain at this time. She does complain of some lower extremity swelling left greater than right. She denies having any difficulty breathing. She states that she has been compliant with her usual medications. She did not see her family doctor for the symptoms. She states that she normally has doctors at [facility] which is why she came to our facility rather than her local ER. ROS: See above HPI for pertinent positives & negatives. A total of 10 systems reviewed and were otherwise negative. PAST MEDICAL HISTORY: See Below PAST SURGICAL HISTORY: See Below FAMILY HISTORY: See Below SOCIAL HISTORY: See Below HOME MEDICATIONS: See Below ALLERGIES: See Below VITALS: See Below PHYSICAL EXAMINATION: GENERAL: The patient is awake and alert. The patient is very anxious and uncomfortable appearing. EYES: The conjunctivae are clear. The pupils are round and reactive. EARS, NOSE, MOUTH AND THROAT: The nose is without any evidence of any deformity. Mucous membranes are moist. Tongue is midline. NECK: The neck is nontender and supple. RESPIRATORY: Normal respiratory effort is noted there is no evidence of wheezing rhonchi or rales CARDIOVASCULAR: Regular rate and rhythm was noted to auscultation. Systolic murmur was suggested. GASTROINTESTINAL: The abdomen is soft and mildly distended. There is diffuse tenderness to palpation especially in the right upper quadrant and epigastric region. MUSCULOSKELETAL/EXTREMITIES: There is no evidence of gross deformity full range of motion is noted in the hips and shoulders. SKIN: There is no obvious evidence of any rash. Trace pedal edema was noted bilaterally.. NEUROLOGIC: Patient is awake alert and oriented x3. MEDICAL DECISION MAKING: The patient is an 81-year-old female who presented to the emergency department for an evaluation of epigastric and upper abdominal pain. The patient's history and physical exam appear to be consistent with recurrent pancreatitis. She was treated with IV fluids and IV pain medication in the emergency department. She was reevaluated multiple times. She did not have significant pain relief on my reevaluation. I did discuss the patient's laboratory and radiographic studies with her. Given the degree of her ongoing pain I [facility] have agreed to evaluate the patient in the emergency department for further management and disposition. Triage Nursing notes reviewed. Prior medical records reviewed Vital Signs: reviewed and remarkable for elevated blood pressure. Differential diagnosis: Etiologies such as appendicitis, diverticulitis, obstruction, inflammatory bowel disease, renal colic, PUD, biliary pathology, pancreatitis, mesenteric ischemia, aortic pathology, infections, genitourinary, UTI, perforated viscus, as well as others were entertained. ER treatment provided: See below Diagnostics interpreted by me: ECG: EKG was obtained in the emergency department. My interpretation is normal sinus rhythm at 65 bpm. There is no ectopy. There was no acute ST segment abnormalities noted. This was compared to a tracing from December 222019. No significant changes were noted. Cardiac Monitoring: An order was placed for continuous cardiac monitoring. The monitor shows a rate of 84 bpm with sinus rhythm. Laboratory studies: As stated above and show below. Imaging studies: See below Consultation(s): I discussed this case with Dr. Roblero who [facility]. Past Med/Surg History Medical History Acute pancreatitis Arthritis Hiatal hernia Hypertension Hypothyroidism Lyme disease Recurrent pancreatitis Surgical History H/O cataract extraction S/P bunionectomy right foot X 2 S/P tonsillectomy and adenoidectomy age 14 years Family History Mother Emphysema lung Father Myocardial infarction Hypertension Denies family history of Colon cancer Ovarian cancer Prostate cancer Autoimmune disease Pancreatitis Breast cancer Social History Smoking Status: Never smoker Second Hand Exposure: No; Hx Alcohol Use: No Hx Substance Use: No Preferred Language: Luxembourgish Communication Ability: Effective 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 Beliefs That Will Affect Care: None marital status: Current Living Situation: Spouse Current Living Situation Comment: lives with in [place] 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 other: 4 kids Feels Safe at Home: Yes Childhood Exposure to Second-Hand Smoke: Yes Dental Care, Regularly: Yes Physical Activity Frequency: Does not Exercise Seatbelt Use: always Sunscreen Use: No Assistive Devices: Glasses Allergies Allergies Allergy/AdvReac Type Severity Reaction Status Date / Time bee venom protein (honey bee) Allergy Severe HAS AN Verified 06/10/21 19:10 EPIPEN FOR REACTIONS latex Allergy Intermediate HIVES Verified 06/10/21 19:10 Iodinated Contrast Media Allergy Mild RASH Verified 06/10/21 19:10 Home Meds Home Medications Medication Instructions Recorded Confirmed cyanocobalamin (vitamin B-12) 1,000 mcg PO QAM tab 02/27/19 06/10/21 1,000 mcg tablet,extended release cyclosporine 0.05 % eye drops in a 1 drp OPB Q12H 03/26/19 06/10/21 dropperette (Restasis) epinephrine 0.3 mg/0.3 mL 0.3 mg IM DIRECTED PRN 03/26/19 06/10/21 injection, auto-injector (EpiPen) multivitamin with minerals 1 tab PO QAM 03/26/19 06/10/21 metronidazole 0.75 % topical cream 1 appln TOP DAILY PRN 12/19/19 06/10/21 magnesium 250 mg tablet 325 mg PO DAILY tab 06/09/20 06/10/21 Previous Rx's Medication Instructions Recorded ascorbate calcium (vitamin C) 500 500 mg PO DAILY #30 tab 12/30/19 mg tablet cholecalciferol (vitamin D3) 125 125 mcg PO DAILY #30 cap 12/30/19 mcg (5,000 unit) capsule coenzyme Q10 200 mg capsule 200 mg PO DAILY #30 cap 12/30/19 cranberry fruit concentrate 250 mg 250 mg PO DAILY #90 tab 12/30/19 chewable tablet (Azo Cranberry) echinacea 400 mg capsule 400 mg PO DAILY #90 cap 12/30/19 krill oil 500 mg capsule 500 mg PO DAILY #30 cap 12/30/19 lutein 25 mg-zeaxanthin 5 mg 1 cap PO DAILY #30 cap 12/30/19 capsule levothyroxine 88 mcg tablet 88 mcg PO QAM #90 tab 09/01/20 (Synthroid) melatonin 5 mg capsule 10 mg PO HS #30 cap 04/08/21 Results & Data (ED) Vital Signs Vital Signs - 24 hr 06/10/21 17:59 06/10/21 20:30 06/10/21 22:43 Temperature 36.5 C 37.1 C Temperature Source Oral Oral Pulse Rate 67 74 84 Pulse Rate from SpO2 Sensor 72 Pulse Rhythm Regular Pulse Strength Normal Respiratory Rate 20 15 18 Respiratory Effort / Characteristics Non-Labored Spontaneous Respiratory Depth Normal Respiratory Pattern Regular Blood Pressure 166/125 H 214/99 H 193/92 H Blood Pressure Mean 138 137 Blood Pressure Position Sitting Pulse Oximetry 98 100 95 Oxygen Delivery Method Room Air Room Air Sepsis Recent Fever Within 48 Hours No Sepsis New/Unexplained Change in Mental Status No Sepsis Action Taken by Nursing No Action Required Home Medications Current Medication List: was personally reviewed by me Laboratory Data Attestation: I reviewed the patient's lab results. Result diagrams: 06/10/21 18:20 06/10/21 18:20 Lab Results 06/10/21 06/10/21 06/10/21 Range/Units 18:20 18:20 18:20 WBC 8.93 (4.8-10.8) K/uL RBC 4.72 (4.2-5.4) M/uL Hgb 15.5 (12.0-16.0) g/dL POC Hgb (12.0-16.0) g/dl Hct 47.1 H (37-47) % POC Hct (37-47) % MCV 99.8 (80-100) fL MCH 32.8 (25-34) pg MCHC 32.9 (32-36) g/dL RDW Std Deviation 47.8 H (36.4-46.3) fL RDW Coeff of Estrellita 13.1 (11.5-14.5) % Plt Count 293 (130-400) K/uL MPV 9.5 (7.4-10.4) fL Immature Gran % (Auto) 0.3 % Neut % (Auto) 81.7 % Lymph % (Auto) 11.1 % Page % (Auto) 6.0 % Eos % (Auto) 0.2 % Baso % (Auto) 0.7 % Neut # (Auto) 7.29 H (1.4-6.5) K/uL Lymph # (Auto) 0.99 L (1.2-3.4) K/uL Page # (Auto) 0.54 (0.11-0.59) K/uL Eos # (Auto) 0.02 (0-0.5) K/uL Baso # (Auto) 0.06 (0-0.2) K/uL Immature Gran # (Auto) 0.03 H (0.00-0.02) K/uL PT 9.9 (9.0-12.0) Seconds INR 1.0 (0.9-1.1) APTT 22.3 (21.0-31.0) Seconds PTT Ratio 0.8 POC Sodium (135-144) mmol/L Sodium 140 (136-145) mmol/L POC Potassium (3.3-5.0) mmol/L Potassium 3.7 (3.5-5.1) mmol/L POC Chloride (101-112) mmol/L Chloride 106 (98-107) mmol/L Carbon Dioxide 25 (21-32) mmol/L POC Total CO2 (24-31) mmol/L Anion Gap 9.0 (3-11) POC Anion Gap (16-25) mmol/L POC BUN (7-18) mg/dl BUN 15 (7-18) mg/dl Creatinine 0.66 (0.6-1.2) mg/dl POC Creatinine (0.6-1.3) mg/dl Est Cr Clr Drug Dosing 61.1 ml/min Est GFR ( Amer) 95.3 ml/min Est GFR (Non-Af Amer) 82.3 ml/min BUN/Creatinine Ratio 23.0 H (10-20) Glucose 136 H (70-99) mg/dl POC Glucose (other) (70-99) mg/dl Lactate (0.4-2.0) mmol/L Calcium 9.5 (8.5-10.1) mg/dl POC Ioniz Calcium Susan (1.12-1.32) mmol/l Total Bilirubin 0.6 (0.2-1) mg/dl AST 23 (15-37) U/L ALT 23 (12-78) U/L Alkaline Phosphatase 67 (45-117) U/L Troponin I < 0.015 (0-0.045) ng/ml Total Protein 7.3 (6.4-8.2) gm/dl Albumin 3.6 (3.4-5.0) gm/dl Globulin 3.7 (2.5-4.0) gm/dl Albumin/Globulin Ratio 1.0 (0.9-2) Lipase 7778 H (73-393) U/L Urine Color Urine Appearance (Clear) Urine pH (4.5-7.5) Ur Specific Caulfield (1.000-1.030) Urine Protein (Negative) Urine Glucose (UA) (Negative) Urine Ketones (Negative) Urine Blood (Negative) Urine Nitrite (Negative) Urine Bilirubin (Negative) Urine Urobilinogen (Negative) Ur Leukocyte Esterase (Negative) Urine WBC (Auto) (0-5) /hpf Urine RBC (Auto) (0-4) /hpf U Hyaline Cast (Auto) (0-5) /lpf U Epithel Cells (Auto) (0-5) /lpf Urine Bacteria (Auto) (Negative) COVID-19 Eval Order SARS-CoV-2 (PCR) (Negative) 06/10/21 06/10/21 06/10/21 Range/Units 18:20 18:24 19:19 WBC (4.8-10.8) K/uL RBC (4.2-5.4) M/uL Hgb (12.0-16.0) g/dL POC Hgb 16.0 (12.0-16.0) g/dl Hct (37-47) % POC Hct 47 (37-47) % MCV (80-100) fL MCH (25-34) pg MCHC (32-36) g/dL RDW Std Deviation (36.4-46.3) fL RDW Coeff of Estrellita (11.5-14.5) % Plt Count (130-400) K/uL MPV (7.4-10.4) fL Immature Gran % (Auto) % Neut % (Auto) % Lymph % (Auto) % Page % (Auto) % Eos % (Auto) % Baso % (Auto) % Neut # (Auto) (1.4-6.5) K/uL Lymph # (Auto) (1.2-3.4) K/uL Page # (Auto) (0.11-0.59) K/uL Eos # (Auto) (0-0.5) K/uL Baso # (Auto) (0-0.2) K/uL Immature Gran # (Auto) (0.00-0.02) K/uL PT (9.0-12.0) Seconds INR (0.9-1.1) APTT (21.0-31.0) Seconds PTT Ratio POC Sodium 142 (135-144) mmol/L Sodium (136-145) mmol/L POC Potassium 3.7 (3.3-5.0) mmol/L Potassium (3.5-5.1) mmol/L POC Chloride 104 (101-112) mmol/L Chloride (98-107) mmol/L Carbon Dioxide (21-32) mmol/L POC Total CO2 26 (24-31) mmol/L Anion Gap (3-11) POC Anion Gap 17.0 (16-25) mmol/L POC BUN 15 (7-18) mg/dl BUN (7-18) mg/dl Creatinine (0.6-1.2) mg/dl POC Creatinine 0.6 (0.6-1.3) mg/dl Est Cr Clr Drug Dosing ml/min Est GFR ( Amer) ml/min Est GFR (Non-Af Amer) ml/min BUN/Creatinine Ratio (10-20) Glucose (70-99) mg/dl POC Glucose (other) 138 H (70-99) mg/dl Lactate 1.3 (0.4-2.0) mmol/L Calcium (8.5-10.1) mg/dl POC Ioniz Calcium Susan 1.11 L (1.12-1.32) mmol/l Total Bilirubin (0.2-1) mg/dl AST (15-37) U/L ALT (12-78) U/L Alkaline Phosphatase (45-117) U/L Troponin I (0-0.045) ng/ml Total Protein (6.4-8.2) gm/dl Albumin (3.4-5.0) gm/dl Globulin (2.5-4.0) gm/dl Albumin/Globulin Ratio (0.9-2) Lipase (73-393) U/L Urine Color Urine Appearance (Clear) Urine pH (4.5-7.5) Ur Specific Caulfield (1.000-1.030) Urine Protein (Negative) Urine Glucose (UA) (Negative) Urine Ketones (Negative) Urine Blood (Negative) Urine Nitrite (Negative) Urine Bilirubin (Negative) Urine Urobilinogen (Negative) Ur Leukocyte Esterase (Negative) Urine WBC (Auto) (0-5) /hpf Urine RBC (Auto) (0-4) /hpf U Hyaline Cast (Auto) (0-5) /lpf U Epithel Cells (Auto) (0-5) /lpf Urine Bacteria (Auto) (Negative) COVID-19 Eval Order Covid19 at [facility] SARS-CoV-2 (PCR) (Negative) 06/10/21 06/10/21 Range/Units 19:19 20:07 WBC (4.8-10.8) K/uL RBC (4.2-5.4) M/uL Hgb (12.0-16.0) g/dL POC Hgb (12.0-16.0) g/dl Hct (37-47) % POC Hct (37-47) % MCV (80-100) fL MCH (25-34) pg MCHC (32-36) g/dL RDW Std Deviation (36.4-46.3) fL RDW Coeff of Estrellita (11.5-14.5) % Plt Count (130-400) K/uL MPV (7.4-10.4) fL Immature Gran % (Auto) % Neut % (Auto) % Lymph % (Auto) % Page % (Auto) % Eos % (Auto) % Baso % (Auto) % Neut # (Auto) (1.4-6.5) K/uL Lymph # (Auto) (1.2-3.4) K/uL Page # (Auto) (0.11-0.59) K/uL Eos # (Auto) (0-0.5) K/uL Baso # (Auto) (0-0.2) K/uL Immature Gran # (Auto) (0.00-0.02) K/uL PT (9.0-12.0) Seconds INR (0.9-1.1) APTT (21.0-31.0) Seconds PTT Ratio POC Sodium (135-144) mmol/L Sodium (136-145) mmol/L POC Potassium (3.3-5.0) mmol/L Potassium (3.5-5.1) mmol/L POC Chloride (101-112) mmol/L Chloride (98-107) mmol/L Carbon Dioxide (21-32) mmol/L POC Total CO2 (24-31) mmol/L Anion Gap (3-11) POC Anion Gap (16-25) mmol/L POC BUN (7-18) mg/dl BUN (7-18) mg/dl Creatinine (0.6-1.2) mg/dl POC Creatinine (0.6-1.3) mg/dl Est Cr Clr Drug Dosing ml/min Est GFR ( Amer) ml/min Est GFR (Non-Af Amer) ml/min BUN/Creatinine Ratio (10-20) Glucose (70-99) mg/dl POC Glucose (other) (70-99) mg/dl Lactate (0.4-2.0) mmol/L Calcium (8.5-10.1) mg/dl POC Ioniz Calcium Susan (1.12-1.32) mmol/l Total Bilirubin (0.2-1) mg/dl AST (15-37) U/L ALT (12-78) U/L Alkaline Phosphatase (45-117) U/L Troponin I (0-0.045) ng/ml Total Protein (6.4-8.2) gm/dl Albumin (3.4-5.0) gm/dl Globulin (2.5-4.0) gm/dl Albumin/Globulin Ratio (0.9-2) Lipase (73-393) U/L Urine Color Yellow Urine Appearance Clear (Clear) Urine pH 7.5 (4.5-7.5) Ur Specific Ca[place]field 1.014 (1.000-1.030) Urine Protein 1+ H (Negative) Urine Glucose (UA) Negative (Negative) Urine Ketones 2+ H (Negative) Urine Blood Trace H (Negative) Urine Nitrite Negative (Negative) Urine Bilirubin Negative (Negative) Urine Urobilinogen Negative (Negative) Ur Leukocyte Esterase Negative (Negative) Urine WBC (Auto) 0 (0-5) /hpf Urine RBC (Auto) 0-4 (0-4) /hpf U Hyaline Cast (Auto) 0 (0-5) /lpf U Epithel Cells (Auto) 0-5 (0-5) /lpf Urine Bacteria (Auto) Negative (Negative) COVID-19 Eval Order SARS-CoV-2 (PCR) NEGATIVE (Negative) Administered Medications Hydromorphone HCl (Hydromorphone Inj 1 Mg/Ml Syringe) 1 mg IV Q30M PRN PRN Reason: Pain Stop: 06/24/21 19:04 Last Admin: 06/10/21 19:16 Dose: 1 mg Documented by: [id number] Morphine Sulfate (Morphine Sulfate 4 Mg/Ml 1 Ml Carp\Vial) 4 mg IV Q15M PRN PRN Reason: Pain Stop: 06/24/21 17:58 Last Admin: 06/10/21 18:27 Dose: 4 mg Documented by: [id number] Admin: 06/10/21 18:09 Dose: 4 mg Documented by: [id number] Discontinued Medications Sodium Chloride (Nss) 500 mls @ 999 mls/hr IV .Q31M STA Stop: 06/10/21 18:29 Last Infusion: 06/10/21 20:12 Dose: 0 mls/hr Documented by: [id number] Admin: 06/10/21 18:09 Dose: 999 mls/hr Documented by: [id number] Ondansetron HCl (Ondansetron Inj 2 Mg/Ml 2 Ml Vial) 4 mg IV NOW STA Stop: 06/10/21 18:00 Last Admin: 06/10/21 18:09 Dose: 4 mg Documented by: [id number] Imaging Data Radiologist's Impression: Chest X-Ray 06/10/21 18:00 TWO VIEW CHEST CLINICAL HISTORY: Atypical chest pain.. FINDINGS: PA and lateral chest radiographs are compared to study dated 10/03/2018. A large hiatal hernia is noted. The cardiomediastinal silhouette is unremarkable. There is bibasilar scarring/atelectasis. The lungs and pleural spaces are otherwise clear. There is no pneumothorax. The skeletal structures are osteopenic. The bony thorax appears intact. Degenerative change is noted in the shoulders and thoracic spine. IMPRESSION: 1. No active disease in the chest. 2. Large hiatal hernia. ACT 112: Negative or not required by law. Electronically signed by: Moses Garsia M.D. 06/10/2021 6:23 PM Abdomen/Pelvis CT 06/10/21 18:04 CT SCAN OF THE ABDOMEN AND PELVIS WITHOUT IV CONTRAST CLINICAL HISTORY: Generalized abdominal pain. Nausea and vomiting COMPARISON STUDY: Abdominal CT dated 12/17/2019 P TECHNIQUE: CT scan of the abdomen and pelvis is performed from the lung bases to the proximal femora. Images are reviewed in the axial, sagittal, and coronal planes. IV contrast was not administered for this examination. Note that the examination was performed in significantly suboptimal fashion without oral and IV contrast. A dose lowering technique was utilized adhering to the principles of ALARA. CT DOSE: 1037.58 mGycm FINDINGS: Lung bases: The heart is normal in size and without pericardial effusion. The coronary arteries are densely calcified. There is a large calcified granuloma in the left lower lobe. The lung bases are otherwise clear noting bibasilar scarring/atelectasis. Liver: The unenhanced liver is normal in size, contour, and attenuation. There is no intrahepatic biliary ductal dilatation. There are calcified hepatic granulomas. Gallbladder: Unremarkable. Spleen: Normal in size and attenuation. There are calcified splenic granulomas. Pancreas: There is mild infiltration and fluid seen around the distal pancreatic body/tail. No organized peripancreatic fluid collection is identified. Adrenal glands: Unremarkable. Kidneys: The unenhanced kidneys demonstrate cortical atrophy and are without hydronephrosis. Numerous renal sinus cysts are seen bilaterally. There are punctate nonobstructing left renal calculi. No right renal calculi are identifie d. No ureteral stone is seen. There is no evidence of contour deforming renal mass lesion. Abdominal vasculature: The abdominal aorta is normal in course and caliber noting moderate atherosclerotic calcification. Stomach and bowel: There is a large hiatal hernia, with approximately half of the stomach located in the thoracic cavity. There is moderate: diverticulosis without CT evidence of acute diverticulitis. No bowel obstruction is identified. The appendix is well-visualized and normal. Peritoneum: There is no intraperitoneal free air or abdominal ascites. There is a fat-containing umbilical hernia. Lymphadenopathy: None. Pelvic viscera: The bladder is normal as visualized. There are calcified uterine fibroids. No adnexal lesion is seen. Skeletal structures: The skeletal structures are osteopenic. There is moderate lumbosacral spondylosis. Hemangiomas are noted in the body of T8, T12, and L2. No lytic or blastic lesions are seen. IMPRESSION: 1. Suboptimal examination without oral and IV contrast. 2. There is mild infiltration and fluid identified around the distal pancreatic body/tail. Correlate with clinical findings and serum amylase/lipase levels for evidence of acute pancreatitis. 3. Large hiatal hernia. 4. Colonic diverticulosis without CT evidence of acute diverticulitis. 5. Left-sided nephrolithiasis. 6. Additional findings as above. ACT 112: Negative or not required by law. Electronically signed by: Moses Garsia M.D. 06/10/2021 7:56 PM Discharge Plan Visit Data Chief Complaint: Abdominal Pain Stated Complaint: AB PAIN ED Provider: Rob Wong Discharge Problem: Acute pancreatitis, Abdominal pain, acute, epigastric Patient Disposition: Being Evaluated by Hospitalist Discharge Instructions Interventions: ED Discharge Assessment Last Done: 06/10/21 22:43 Forms Stand Alone Forms: [employer] Prescriptions Prescriptions: No Action metronidazole 0.75 % cream 1 appln TOP DAILY PRN (Reason: ROSACEA) RF: 0 levothyroxine [Synthroid] 88 mcg tablet 88 mcg PO QAM Qty: 90 RF: 3 cyanocobalamin (vitamin B-12) 1,000 mcg tablet extended release 1,000 mcg PO QAM RF: 0 Azo Cranberry 250 mg tablet,chewable 250 mg PO DAILY Qty: 90 RF: 0 cholecalciferol (vitamin D3) 125 mcg (5,000 unit) capsule 125 mcg PO DAILY Qty: 30 RF: 0 echinacea 400 mg capsule 400 mg PO DAILY Qty: 90 RF: 0 lutein-zeaxanthin 25-5 mg capsule 1 cap PO DAILY Qty: 30 RF: 0 coenzyme Q10 200 mg capsule 200 mg PO DAILY Qty: 30 RF: 0 ascorbate calcium (vitamin C) 500 mg tablet 500 mg PO DAILY Qty: 30 RF: 0 krill oil 500 mg capsule 500 mg PO DAILY Qty: 30 RF: 0 melatonin 5 mg capsule 10 mg PO HS Qty: 30 RF: 0 magnesium 250 mg tablet 325 mg PO DAILY RF: 0 Restasis 0.05 % dropperette 1 drp OPB Q12H RF: 0 epinephrine [EpiPen] 0.3 mg/0.3 mL auto-injector 0.3 mg IM DIRECTED PRN (Reason: Allergic Reaction) RF: 0 multivitamin with minerals tablet 1 tab PO QAM RF: 0 Referrals Referrals: Pro,Rob Cline MD [Primary Care Provider] -
[2021-06-10] MEDS: MoRPHine SULFATE 4 MG/ML 1 ML CARP\\VIAL IV PRN ×2 (18:09→18:27)
--- NOTE | 2021-06-10 18:24 | XRay Report ---
TWO VIEW CHEST CLINICAL HISTORY: Atypical chest pain.. FINDINGS: PA and lateral chest radiographs are compared to study dated 10/03/2018. A large hiatal jerica ia is noted. The cardiomediastinal silhouette is unremarkable. There is bibasilar scarring/atelectasi s. The lungs and pleural spaces are otherwise clear. There is no pneumothorax. The skeletal structure s are osteopenic. The bony thorax appears intact. Degenerative change is noted in the shoulders and t horacic spine. IMPRESSION: 1. No active disease in the chest. 2. Large hiatal hernia. ACT 112: Negative or not required by law. Electronically signed by: Moses Garsia M.D. 06/10/2021 6:23 PM
[2021-06-10 18:28] LABS: Basophils # (auto) 0.06 K/uL (0-0.2); Basophils % (auto) 0.7 %; Eosinophils # (auto) 0.02 K/uL (0-0.5); Eosinophils % (auto) 0.2 %; Hematocrit (blood only) 47.1 % (37-47); Hemoglobin 15.5 g/dL (12.0-16.0); Immature Granulocytes # (auto) 0.03 K/uL (0.00-0.02); Immature Granulocytes % (auto) 0.3 %; Lymphocytes # (auto) 0.99 K/uL (1.2-3.4); Lymphocytes % (auto) 11.1 %; Mean Corpuscular Hemoglobin 32.8 pg (25-34); Mean Corpuscular Hgb Conc 32.9 g/dL (32-36); Mean Corpuscular Volume 99.8 fL (80-100); Mean Platelet Volume 9.5 fL (7.4-10.4); Monocytes # (auto) 0.54 K/uL (0.11-0.59); Neutrophils # (auto) 7.29 K/uL (1.4-6.5); Neutrophils % (auto) 81.7 %; Platelet Count 293 K/uL (130-400); RDW Coefficient of Variation 13.1 % (11.5-14.5); RDW Standard Deviation 47.8 fL (36.4-46.3); Red Blood Count 4.72 M/uL (4.2-5.4); White Blood Count 8.93 K/uL (4.8-10.8)
[2021-06-10 18:36] LABS: iSTAT Creatinine 0.6 mg/dl (0.6-1.3); iSTAT Ionized Calcium 1.11 mmol/l (1.12-1.32); iSTAT Potassium 3.7 mmol/L (3.3-5.0)
[2021-06-10 18:39] LABS: Partial Thromboplastin Ratio 0.8; Partial Thromboplastin Time 22.3 Seconds (21.0-31.0); Prothrombin Time 9.9 Seconds (9.0-12.0)
[2021-06-10 18:56] LABS: Alanine Aminotransferase 23 U/L (12-78); Albumin Level 3.6 gm/dl (3.4-5.0); Aspartate Aminotransferase 23 U/L (15-37); Blood Urea Nitrogen 15 mg/dl (7-18); Calcium 9.5 mg/dl (8.5-10.1); Carbon Dioxide 25 mmol/L (21-32); Chloride 106 mmol/L (98-107); Creatinine Clr Calc Pharmacy 61.1 ml/min; Est GFR (African American) 95.3 ml/min; Est GFR (Non-African American) 82.3 ml/min; Glucose 136 mg/dl (70-99); Potassium 3.7 mmol/L (3.5-5.1); Sodium 140 mmol/L (136-145)
[2021-06-10 19:01] LABS: Alkaline Phosphatase 67 U/L (45-117); Bilirubin,Total 0.6 mg/dl (0.2-1); Globulin 3.7 gm/dl (2.5-4.0); Lipase 7778 U/L (73-393); Total Protein 7.3 gm/dl (6.4-8.2); Troponin I < 0.015 ng/ml (0-0.045)
[2021-06-10] MEDS ORDERED: HYDROmorphone INJ 1 MG/ML SYRINGE IV PRN (19:05)
--- NOTE | 2021-06-10 19:57 | CT Scan Report ---
CT SCAN OF THE ABDOMEN AND PELVIS WITHOUT IV CONTRAST CLINICAL HISTORY: Generalized abdominal pain. Nausea and vomiting COMPARISON STUDY: Abdominal CT dated 12/17/2019 P TECHNIQUE: CT scan of the abdomen and pelvis is performed from the lung bases to the proximal femora. Images are reviewed in the axial, sagittal, and coronal planes. IV contrast was not administered for this examination. Note that the examination was performed in significantly suboptimal fashion withou t oral and IV contrast. A dose lowering technique was utilized adhering to the principles of ALARA. CT DOSE: 1037.58 mGycm FINDINGS: Lung bases: The heart is normal in size and without pericardial effusion. The coronary arteries are d ensely calcified. There is a large calcified granuloma in the left lower lobe. The lung bases are oth erwise clear noting bibasilar scarring/atelectasis. Liver: The unenhanced liver is normal in size, contour, and attenuation. There is no intrahepatic xin iary ductal dilatation. There are calcified hepatic granulomas. Gallbladder: Unremarkable. Spleen: Normal in size and attenuation. There are calcified splenic granulomas. Pancreas: There is mild infiltration and fluid seen around the distal pancreatic body/tail. No organi zed peripancreatic fluid collection is identified. Adrenal glands: Unremarkable. Kidneys: The unenhanced kidneys demonstrate cortical atrophy and are without hydronephrosis. Numerous renal sinus cysts are seen bilaterally. There are punctate nonobstructing left renal calculi. No rig ht renal calculi are identified. No ureteral stone is seen. There is no evidence of contour deforming renal mass lesion. Abdominal vasculature: The abdominal aorta is normal in course and caliber noting moderate atheroscle rotic calcification. Stomach and bowel: There is a large hiatal hernia, with approximately half of the stomach located in the thoracic cavity. There is moderate: diverticulosis without CT evidence of acute diverticulitis. N o bowel obstruction is identified. The appendix is well-visualized and normal. Peritoneum: There is no intraperitoneal free air or abdominal ascites. There is a fat-containing umbi lical hernia. Lymphadenopathy: None. Pelvic viscera: The bladder is normal as visualized. There are calcified uterine fibroids. No adnexal lesion is seen. Skeletal structures: The skeletal structures are osteopenic. There is moderate lumbosacral spondylosi s. Hemangiomas are noted in the body of T8, T12, and L2. No lytic or blastic lesions are seen. IMPRESSION: 1. Suboptimal examination without oral and IV contrast. 2. There is mild infiltration and fluid identified around the distal pancreatic body/tail. Correlate with clinical findings and serum amylase/lipase levels for evidence of acute pancreatitis. 3. Large hiatal hernia. 4. Colonic diverticulosis without CT evidence of acute diverticulitis. 5. Left-sided nephrolithiasis. 6. Additional findings as above. ACT 112: Negative or not required by law. Electronically signed by: Moses Garsia M.D. 06/10/2021 7:56 PM
[2021-06-10 20:46] LABS: Appearance Urine Clear (Clear); Bacteria Urine Automated Negative (Negative); Bilirubin Urine Negative (Negative); Blood Urine Trace (Negative); Cast Urine Automated 0 /lpf (0-5); Color Urine Yellow; Epithelial Cell Urine Auto 0-5 /lpf (0-5); Glucose Urine UA Negative (Negative); Ketones Urine 2+ (Negative); Leukocyte Esterase Urine Negative (Negative); Nitrite Urine Negative (Negative); RBC Urine Automated 0-4 /hpf (0-4); Specific Gravity Urine 1.014 (1.000-1.030); Urobilinogen Urine Negative (Negative); WBC Urine Automated 0 /hpf (0-5); pH Urine 7.5 (4.5-7.5)
[2021-06-10 20:50] LABS: Protein Urine 1+ (Negative)
[2021-06-10] MEDS ORDERED: SODIUM CHLORIDE 0.9% 1000ML 1,000 ML IV ONE (21:35)
--- NOTE | 2021-06-10 21:35 | History & Physical Report ---
Date of Service June 10, 2021 Assessment & Plan (1) Acute pancreatitis: Plan: Acute pancreatitis- NPO Received NSS 500 mils from the ED Give full 30 mils per kilogram NSS with remaining IV bolus. Then placed on NSS + KCl 20 mEq at high 50 mils per hour x1 L Follow serial CBC with differential, chemistry profile and lipase levels Order MRCP due to history of previous occurrence of pancreatitis, and issue of questionable gallbladder involvement Dilaudid 0.25 mg IV every 3 hours as needed moderate pain Dilaudid 0.5 mg IV every 3 hours as needed severe pain (2) Recurrent pancreatitis: Plan: See above (3) Hypothyroidism: Plan: Resume levothyroxine when able to take p.o. History of Present Illness Chief Complaint: The patient presents to the emergency department with acute onset of abdominal pain and left side pain earlier in the day, that worsened throughout the day Primary Care Provider: Rob Mayers MD The patient is a 81-year-old female with a past medical history including pancreatitis in 2019, vitamin D deficiency, vitamin B12 deficiency, spinal stenosis, peripheral neuropathy, hypercholesterolemia, hypertension, hypothyroidism, hiatal hernia and spinal stenosis. Patient reports the development of acute onset of abdominal pain, that worsened as the day progressed. Pain became so severe she called 911 to be brought to the ED. She reports during her previous episode of pancreatitis in 2019, that there was debate about whether her gallbladder should be removed or not, with some doctors saying yes and some doctors saying no. Abnormal laboratories: Lipase 7778 Chest x-ray shows large hiatal hernia CT scan abdomen pelvis shows acute pancreatitis in the distal body and tail of the pancreas Allergies Allergy/AdvReac Type Severity Reaction Status Date / Time bee venom protein (honey bee) Allergy Severe HAS AN Verified 06/10/21 19:10 EPIPEN FOR REACTIONS latex Allergy Intermediate HIVES Verified 06/10/21 19:10 Iodinated Contrast Media Allergy Mild RASH Verified 06/10/21 19:10 Home Medications Medication Instructions Recorded Confirmed Type cyanocobalamin (vitamin B-12) 1,000 mcg PO QAM tab 02/27/19 06/10/21 History 1,000 mcg tablet,extended release cyclosporine 0.05 % eye drops in a 1 drp OPB Q12H 03/26/19 06/10/21 History dropperette (Restasis) epinephrine 0.3 mg/0.3 mL 0.3 mg IM DIRECTED PRN 03/26/19 06/10/21 History injection, auto-injector (EpiPen) multivitamin with minerals 1 tab PO QAM 03/26/19 06/10/21 History metronidazole 0.75 % topical cream 1 appln TOP DAILY PRN 12/19/19 06/10/21 History ascorbate calcium (vitamin C) 500 500 mg PO DAILY #30 tab 12/30/19 06/10/21 Rx mg tablet cholecalciferol (vitamin D3) 125 125 mcg PO DAILY #30 cap 12/30/19 06/10/21 Rx mcg (5,000 unit) capsule coenzyme Q10 200 mg capsule 200 mg PO DAILY #30 cap 12/30/19 06/10/21 Rx cranberry fruit concentrate 250 mg 250 mg PO DAILY #90 tab 12/30/19 06/10/21 Rx chewable tablet (Azo Cranberry) echinacea 400 mg capsule 400 mg PO DAILY #90 cap 12/30/19 06/10/21 Rx krill oil 500 mg capsule 500 mg PO DAILY #30 cap 12/30/19 06/10/21 Rx lutein 25 mg-zeaxanthin 5 mg 1 cap PO DAILY #30 cap 12/30/19 06/10/21 Rx capsule magnesium 250 mg tablet 325 mg PO DAILY tab 06/09/20 06/10/21 History levothyroxine 88 mcg tablet 88 mcg PO QAM #90 tab 09/01/20 06/10/21 Rx (Synthroid) melatonin 5 mg capsule 10 mg PO HS #30 cap 04/08/21 06/10/21 Rx Past Med/Surg History Medical History Acute pancreatitis Arthritis Hiatal hernia Hypertension Hypothyroidism Lyme disease Recurrent pancreatitis Surgical History H/O cataract extraction S/P bunionectomy right foot X 2 S/P tonsillectomy and adenoidectomy age 14 years Family History Mother Emphysema lung Father Myocardial infarction Hypertension Denies family history of Colon cancer Ovarian cancer Prostate cancer Autoimmune disease Pancreatitis Breast cancer Social History Smoking Status: Never smoker Second Hand Exposure: No; Hx Alcohol Use: No Hx Substance Use: No Preferred Language: Sinhala Communication Ability: Effective Talent Acquisition Consultant Required: No Beliefs That Will Affect Care: None marital status: Current Living Situation: Spouse Current Living Situation Comment: lives with in [place] 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 Other Information That Helps Us Care for You: No other: 4 kids Feels Safe at Home: Yes Safety Concerns: Feels Safe At This Time Childhood Exposure to Second-Hand Smoke: Yes Dental Care, Regularly: Yes Physical Activity Frequency: Does not Exercise Seatbelt Use: always Sunscreen Use: No Assistive Devices: Glasses Review of Systems Review of Systems: The patient denies chest pain, palpitations, shortness of breath, dyspnea on exertion, cough, lower extremity swelling, sore throat, fevers, chills, sweats, vomiting, diarrhea , constipation, blood in urine or stool, dysuria, urinary frequency or urgency, lightheadedness, dizziness, headache, memory loss, loss of consciousness, rash, abnormal bruising or bleeding, imbalance, focal or generalized weakness, numbness or tingling in arms or legs, generalized arthralgias or myalgias, neck pain, or night sweats. The review of systems is otherwise negative other than for that already noted above, and at least 10 systems have been reviewed. Physical Exam Physical Exam: The patient is awake, alert and oriented 3, well developed and well nourished, normocephalic and atraumatic, lying in bed and in no acute distress. HEENT--PERRL, EOMI, mucous membranes and oropharynx mildly dry Neck--supple. No JVD. No bruits. Thyroid normal, trachea midline, no adenopathy. Heart--normal S1 and S2. No murmurs, rubs or gallops. Lungs--clear bilaterally, no respiratory distress, no accessory muscle use. Abdomen--normal bowel sounds and soft. Mild epigastric and left sided abdominal pain Extremities--no cyanosis or clubbing. No edema. Dermatologic--normal skin turgor, normal color, no abnormal lymph nodes, no rash. Neurologic--cranial nerves II through XII grossly intact. Rheumatologic--normal range of motion. Psychiatric--normal affect. Results & Data Results & Data ([facility]) Vital Signs (Past 12 Hours) Vital Signs Temp Pulse Resp BP Pulse Ox 06/10/21 20:30 74 15 214/99 H 100 06/10/21 17:59 97.7 F 67 20 166/125 H 98 Laboratory Results Laboratory Results WBC 8.93 K/uL (4.8-10.8) 06/10/21 18:20 RBC 4.72 M/uL (4.2-5.4) 06/10/21 18:20 Hgb 15.5 g/dL (12.0-16.0) 06/10/21 18:20 POC Hgb 16.0 g/dl (12.0-16.0) 06/10/21 18:24 Hct 47.1 % (37-47) H 06/10/21 18:20 POC Hct 47 % (37-47) 06/10/21 18:24 MCV 99.8 fL (80-100) 06/10/21 18:20 MCH 32.8 pg (25-34) 06/10/21 18:20 MCHC 32.9 g/dL (32-36) 06/10/21 18:20 RDW Std Deviation 47.8 fL (36.4-46.3) H 06/10/21 18:20 RDW Coeff of Estrellita 13.1 % (11.5-14.5) 06/10/21 18:20 Plt Count 293 K/uL (130-400) 06/10/21 18:20 MPV 9.5 fL (7.4-10.4) 06/10/21 18:20 Immature Gran % (Auto) 0.3 % 06/10/21 18:20 Neut % (Auto) 81.7 % 06/10/21 18:20 Lymph % (Auto) 11.1 % 06/10/21 18:20 Waller % (Auto) 6.0 % 06/10/21 18:20 Eos % (Auto) 0.2 % 06/10/21 18:20 Baso % (Auto) 0.7 % 06/10/21 18:20 Neut # (Auto) 7.29 K/uL (1.4-6.5) H 06/10/21 18:20 Lymph # (Auto) 0.99 K/uL (1.2-3.4) L 06/10/21 18:20 Waller # (Auto) 0.54 K/uL (0.11-0.59) 06/10/21 18:20 Eos # (Auto) 0.02 K/uL (0-0.5) 06/10/21 18:20 Baso # (Auto) 0.06 K/uL (0-0.2) 06/10/21 18:20 Immature Gran # (Auto) 0.03 K/uL (0.00-0.02) H 06/10/21 18:20 PT 9.9 Seconds (9.0-12.0) 06/10/21 18:20 INR 1.0 (0.9-1.1) 06/10/21 18:20 APTT 22.3 Seconds (21.0-31.0) 06/10/21 18:20 PTT Ratio 0.8 06/10/21 18:20 POC Sodium 142 mmol/L (135-144) 06/10/21 18:24 Sodium 140 mmol/L (136-145) 06/10/21 18:20 POC Potassium 3.7 mmol/L (3.3-5.0) 06/10/21 18:24 Potassium 3.7 mmol/L (3.5-5.1) 06/10/21 18:20 POC Chloride 104 mmol/L (101-112) 06/10/21 18:24 Chloride 106 mmol/L (98-107) 06/10/21 18:20 Carbon Dioxide 25 mmol/L (21-32) 06/10/21 18:20 POC Total CO2 26 mmol/L (24-31) 06/10/21 18:24 Anion Gap 9.0 (3-11) 06/10/21 18:20 POC Anion Gap 17.0 mmol/L (16-25) 06/10/21 18:24 POC BUN 15 mg/dl (7-18) 06/10/21 18:24 BUN 15 mg/dl (7-18) 06/10/21 18:20 Creatinine 0.66 mg/dl (0.6-1.2) 06/10/21 18:20 POC Creatinine 0.6 mg/dl (0.6-1.3) 06/10/21 18:24 Est Cr Clr Drug Dosing 61.1 ml/min 06/10/21 18:20 Est GFR ( Amer) 95.3 ml/min 06/10/21 18:20 Est GFR (Non-Af Amer) 82.3 ml/min 06/10/21 18:20 BUN/Creatinine Ratio 23.0 (10-20) H 06/10/21 18:20 Glucose 136 mg/dl (70-99) H 06/10/21 18:20 POC Glucose (other) 138 mg/dl (70-99) H 06/10/21 18:24 Lactate 1.3 mmol/L (0.4-2.0) 06/10/21 18:20 Calcium 9.5 mg/dl (8.5-10.1) 06/10/21 18:20 POC Ioniz Calcium Susan 1.11 mmol/l (1.12-1.32) L 06/10/21 18:24 Total Bilirubin 0.6 mg/dl (0.2-1) 06/10/21 18:20 AST 23 U/L (15-37) 06/10/21 18:20 ALT 23 U/L (12-78) 06/10/21 18:20 Alkaline Phosphatase 67 U/L (45-117) 06/10/21 18:20 Troponin I < 0.015 ng/ml (0-0.045) 06/10/21 18:20 Total Protein 7.3 gm/dl (6.4-8.2) 06/10/21 18:20 Albumin 3.6 gm/dl (3.4-5.0) 06/10/21 18:20 Globulin 3.7 gm/dl (2.5-4.0) 06/10/21 18:20 Albumin/Globulin Ratio 1.0 (0.9-2) 06/10/21 18:20 Lipase 7778 U/L (73-393) H 06/10/21 18:20 Urine Color Yellow 06/10/21 20:07 Urine Appearance Clear (Clear) 06/10/21 20:07 Urine pH 7.5 (4.5-7.5) 06/10/21 20:07 Ur Specific Simla 1.014 (1.000-1.030) 06/10/21 20:07 Urine Protein 1+ (Negative) H 06/10/21 20:07 Urine Glucose (UA) Negative (Negative) 06/10/21 20:07 Urine Ketones 2+ (Negative) H 06/10/21 20:07 Urine Blood Trace (Negative) H 06/10/21 20:07 Urine Nitrite Negative (Negative) 06/10/21 20:07 Urine Bilirubin Negative (Negative) 06/10/21 20:07 Urine Urobilinogen Negative (Negative) 06/10/21 20:07 Ur Leukocyte Esterase Negative (Negative) 06/10/21 20:07 Urine WBC (Auto) 0 /hpf (0-5) 06/10/21 20:07 Urine RBC (Auto) 0-4 /hpf (0-4) 06/10/21 20:07 U Hyaline Cast (Auto) 0 /lpf (0-5) 06/10/21 20:07 U Epithel Cells (Auto) 0-5 /lpf (0-5) 06/10/21 20:07 Urine Bacteria (Auto) Negative (Negative) 06/10/21 20:07 COVID-19 Eval Order Covid19 at [facility] 06/10/21 19:19 SARS-CoV-2 (PCR) NEGATIVE (Negative) 06/10/21 19:19 Impressions Chest X-Ray 06/10/21 18:00 TWO VIEW CHEST CLINICAL HISTORY: Atypical chest pain.. FINDINGS: PA and lateral chest radiographs are compared to study dated 10/03/2018. A large hiatal hernia is noted. The cardiomediastinal silhouette is unremarkable. There is bibasilar scarring/atelectasis. The lungs and pleural spaces are otherwise clear. There is no pneumothorax. The skeletal structures are osteopenic. The bony thorax appears intact. Degenerative change is noted in the shoulders and thoracic spine. IMPRESSION: 1. No active disease in the chest. 2. Large hiatal hernia. ACT 112: Negative or not required by law. Electronically signed by: Moses Garsia M.D. 06/10/2021 6:23 PM Abdomen/Pelvis CT 06/10/21 18:04 CT SCAN OF THE ABDOMEN AND PELVIS WITHOUT IV CONTRAST CLINICAL HISTORY: Generalized abdominal pain. Nausea and vomiting COMPARISON STUDY: Abdominal CT dated 12/17/2019 P TECHNIQUE: CT scan of the abdomen and pelvis is performed from the lung bases to the proximal femora. Images are reviewed in the axial, sagittal, and coronal planes. IV contrast was not administered for this examination. Note that the examination was performed in significantly suboptimal fashion without oral and IV contrast. A dose lowering technique was utilized adhering to the principles of ALARA. CT DOSE: 1037.58 mGycm FINDINGS: Lung bases: The heart is normal in size and without pericardial effusion. The coronary arteries are densely calcified. There is a large calcified granuloma in the left lower lobe. The lung bases are otherwise clear noting bibasilar scarring/atelectasis. Liver: The unenhanced liver is normal in size, contour, and attenuation. There is no intrahepatic biliary ductal dilatation. There are calcified hepatic granulomas. Gallbladder: Unremarkable. Spleen: Normal in size and attenuation. There are calcified splenic granulomas. Pancreas: There is mild infiltration and fluid seen around the distal pancreatic body/tail. No organized peripancreatic fluid collection is identified. Adrenal glands: Unremarkable. Kidneys: The unenhanced kidneys demonstrate cortical atrophy and are without hydronephrosis. Numerous renal sinus cysts are seen bilaterally. There are punctate nonobstructing left renal calculi. No right renal calculi are identified. No ureteral stone is seen. There is no evidence of contour deforming renal mass lesion. Abdominal vasculature: The abdominal aorta is normal in course and caliber noting moderate atherosclerotic calcification. Stomach and bowel: There is a large hiatal hernia, with approximately half of the stomach located in the thoracic cavity. There is moderate: diverticulosis without CT evidence of acute diverticulitis. No bowel obstruction is identified. The appendix is well-visualized and normal. Peritoneum: There is no intraperitoneal free air or abdominal ascites. There is a fat-containing umbilical hernia. Lymphadenopathy: None. Pelvic viscera: The bladder is normal as visualized. There are calcified uterine fibroids. No adnexal lesion is seen. Skeletal structures: The skeletal structures are osteopenic. There is moderate lumbosacral spondylosis. Hemangiomas are noted in the body of T8, T12, and L2. No lytic or blastic lesions are seen. IMPRESSION: 1. Suboptimal examination without oral and IV contrast. 2. There is mild infiltration and fluid identified around the distal pancreatic body/tail. Correlate with clinical findings and serum amylase/lipase levels for evidence of acute pancreatitis. 3. Large hiatal hernia. 4. Colonic diverticulosis without CT evidence of acute diverticulitis. 5. Left-sided nephrolithiasis. 6. Additional findings as above. ACT 112: Negative or not required by law. Electronically signed by: Moses Garsia M.D. 06/10/2021 7:56 PM Code Status & VTE Plan Code Status Full code VTE Prophylaxis Plan VTE Prophylaxis will be ordered: Yes PG Care Time/CCT Total # of Minutes Spent Total Time Spent with Patient: Total time spent is greater than 50% in coordination of care (as documented) at patient's floor/unit and/or counseling patient: Coding Level of Care Code 65763 Initial Inpt Care Lvl 2 Diagnoses Acute pancreatitis K85.90 Acute pancreatitis complication: unspecified Pancreatitis type: unspecified pancreatitis type Recurrent pancreatitis K85.90 Hypothyroidism E03.9 Hypothyroidism type: acquired (1) Acute pancreatitis Acute pancreatitis complication: unspecified Pancreatitis type: unspecified pancreatitis type Qualified Code(s): K85.90 - Acute pancreatitis without necrosis or infection, unspecified (2) Hypothyroidism Hypothyroidism type: acquired Qualified Code(s): E03.9 - Hypothyroidism, unspecified
[2021-06-10] MEDS ORDERED: HYDROmorphone INJ 0.5 MG/0.5 ML SYR IV PRN (23:40)
[2021-06-11] MEDS: ONDANSETRON INJ 2 MG/ML 2 ML VIAL IV PRN (00:21)
[2021-06-11] MEDS: HYDROmorphone INJ 0.5 MG/0.5 ML SYR IV PRN ×3 (00:23→08:57)
[2021-06-11] MEDS: NSS + 20MEQ KCL 20 MEQ/1,000 ML BAG IV SCH ×2 (00:45→08:06)
[2021-06-11] MEDS: ENOXAPARIN INJ 40 MG/0.4 ML SYR SQ SCH (05:50)
[2021-06-11 09:07] LABS: Albumin Globulin Ratio 0.9 (0.9-2); Albumin Level 3.6 gm/dl (3.4-5.0); BUN Creatinine Ratio 17.8 (10-20); Bilirubin,Total 0.7 mg/dl (0.2-1); Calcium 9.6 mg/dl (8.5-10.1); Creatinine Clr Calc Pharmacy 55.2 ml/min; Est GFR (African American) 88.9 ml/min; Est GFR (Non-African American) 76.7 ml/min; Globulin 4.1 gm/dl (2.5-4.0); Potassium 4.3 mmol/L (3.5-5.1); Total Protein 7.7 gm/dl (6.4-8.2)
--- NOTE | 2021-06-11 09:24 | Magnetic Resonance Report ---
MR MRCP HISTORY: 81 years-old Female recurrent pancreatitis acute epigastric abdominal pain COMPARISON: CT abdomen and pelvis 06/10/2021 MRCP 12/17/2019. 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 Right hemidiaphragmatic elev ation with moderate cardiomegaly. Large hiatal hernia. Mild interstitial and peripancreatic edema wit h trace free fluid within the lesser sac and abdominal left upper quadrant. Study is mildly motion de graded. No pancreatic ductal dilation or acute peripancreatic fluid collection. No evidence of pancre atic divisum. Normal caliber of the common bile duct. No intrahepatic biliary ductal dilation or bili kanwal filling defects. Unremarkable gallbladder. Renal sinus cysts of the bilateral kidneys. IMPRESSION: 1. Findings compatible with mild acute pancreatitis. No pancreatic ductal dilation. 2. No biliary ductal dilation or biliary filling defects. 3. Large hiatal hernia redemonstrated. ACT 112: Negative or not required by law. The above report was generated using voice recognition software. It may contain grammatical, syntax o r spelling errors. Electronically signed by: Mk Kulkarni M.D. 06/11/2021 9:23 AM
--- NOTE | 2021-06-11 09:40 | Electrocardiogram Report ---
Test Reason : Blood Pressure : / mmHG Vent. Rate : 065 BPM Atrial Rate : 065 BPM P-R Int : 178 ms QRS Dur : 096 ms QT Int : 446 ms P-R-T Axes : 029 069 026 degrees QTc Int : 463 ms Normal sinus rhythm Incomplete right bundle branch block Borderline ECG When compared with ECG of 23-DEC-2019 17:38, Premature ventricular complexes are no longer Present Incomplete right bundle branch block is now Present Confirmed by Cabrera Reno ([id number]) on 06/11/2021 9:40:06 AM Referred By: REFERRED SELF Confirmed By:Aubrey Reno
[2021-06-11] MEDS: D5W AND LACTATED RINGERS 1,000 ML IV SCH ×2 (10:23→17:58)
[2021-06-11] MEDS: HYDROmorphone INJ 1 MG/ML SYRINGE IV PRN ×3 (10:25→16:18)
--- NOTE | 2021-06-11 11:28 | Gastrointestinal Consultation ---
Date of Consultation June 11, 2021 Assessment & Plan (1) Acute pancreatitis: This is an 81 y/o female with h/o recurrent idiopathic acute pancreatitis for which she is now admitted and we are consulted. Lipase trending down overnight; the rest of her labs are unremarkable; imaging w/ no necrosis or fluid collections; no biliary stone/obstruction or pancreas divisum. HGB has not dropped 2 pts. She is still in quite a bit of discomfort; abd soft. Discussed possibilities for recurrent episodes including possible med related (herbal), vs occult stone/sludge disease, vs contribution of small PD; she has a history of small IMPN though not mentioned on her scans this admission. She has no red flags such as weight loss, jaundice, anemia to suggest malignant process. It's unclear whether she would benefit from cholecystectomy; she had been offered this but declined in the past. - Keep NPO for now - Recommend continued IVF w/ LR; aim for 2 pt drop in H&H - Symptomatic mgmt w/ IV analgesia PRN - IV antiemetics PRN - Trend LFTs, CBC - Recommend she consider EUS/ERCP as an outpt (was scheduled at [facility]) as it has been 3 years since her last one; to re-eval history of small IPMN and to possibly provide therapy for small PD; ensure no sinister pathology Thank you for allowing us to participate in the care of this patient. Please call with any acute changes, questions or concerns. Please see addendum below with additional recommendation from my supervising physician. Supervising Physician Co-Signing Physician Notes I performed a history and physical examination of the patient today, including specifically on physical exam - soft abdomen. I have discussed the patient's management with the advanced practitioner. Please refer to the nurse practitioner's note for the documented findings and plan of care. Recurrent pancreatitis of unclear etiology. No gallstones and no use of alcohol. Normal MRCP. Takes a lot of supplements. Recommend: ERCP + EUS with Pancreas biopsy to r/o autoimmune pancreatitis, to be arranged in 4 weeks as OP. Patient wants me to do it and does not want to go to [facility]. Continue IV fluids and pain control for now,. Stop all supplements. Start clear liquids and advance as tolerated. Recall GI if needed. History of Present Illness Attending Physician: Niarj Browne MD History of Present Illness Pt is a 78-year-old female admitted with mild recurrent pancreatitis manifested by sudden severe epigastric pain radiating to the back and nausea/vomiting. Lipase > 7k on arrival, today 2k. No leukocytosis, elevated LFTs, or anemia. C T w/ mild infiltration and fluid identified around the distal pancreatic body/tail. MRCP w/ mild acute panc, no pancreas divisum. She is being medicated w/ IV analgesia and IVF @ 150 mL/hr of LR, though reports no improvement in her pain and is tearful discussing this today. Is uncomfortable from the pain. No further vomiting. Had a brown soft stool yesterday. No hematemesis, melena, hematochezia, jaundice, icterus, dark urine, morton stool, CP, SOB, dysphagia, heartburn, weight loss, diarrhea. In between bouts she has no abd pain. She has had idiopathic recurrent acute pancreatitis for the last several years and has been hospitalized several times for this. Has been seen by [facility] as well as [facility] and [facility]. She currently follows with Dr. Harley for GI. Previous MRI and 2 previous EUS suggestive of a very small IPMN. W/u for auto-immune dz w/ +BRITTA but IgG4 subclasses unremarkable. She was recently referred to rheumatology for w/u + BRITTA; has not seen them yet. She has been evaluated by different surgeons to consider cholecystectomy; recommendations were mixed on whether this would be beneficial to her in case etiology is sludge disease; she has declined. She was apparently set-up for EUS/ERCP at [facility] sometime recently however according to PCP (Dr Mayers) notes she deferred this. Other thought would be medication-induced as she takes several herbal meds. A trial of pancreatic supplements was unhelpful in the past. It is noted her PD is small, only measuring 1 mm. It was previously discussed to consider ERCP for small PD stricture. She does have a noted large hiatal and paraesophageal hernia, but otherwise has no other GI complaints. Her triglycerides have been normal; no tobacco, ETOH use. Prior w/u for pancreatitis: IGG subclasses 2019 IGG1 382 - 929 mg/dL 645 IGG2 241 - 700 mg/dL 170Low IGG3 22 - 178 mg/dL 61 IGG4 4.0 - 86.0 mg/dL 16.5 BRITTA 2019: Antinuclear Antibody Titer, IFA <40 TITER 40 MRI 2018: The abnormality previously seen in the pancreatic head appears to represent a tiny IPMN but cannot be definitively characterized given lack of MRCP on today's study. Follow-up MRI with MRCP suggested in approximately 1 year to document stability. EUS 2018: A cystic lesion was seen in the pancreatic head. - There was no sign of significant pathology in the common bile duct. - Hyperechoic material consistent with sludge was visualized endosonographically in the gallbladder body. - There was no evidence of significant pathology in the left lobe of the liver. - The celiac trunk was endosonographically normal. - No specimens collected. EGD 2018: Large hiatal hernia with a few [place] ulcers. - Normal stomach. - Normal duodenal bulb, second portion of the duodenum and area of the papilla. - No specimens collected. EUS 2017: A cystic lesion was seen in the pancreatic head. - There was no sign of significant pathology in the common bile duct. - There was no evidence of significant pathology in the left lobe of the liver. - The celiac trunk was endosonographically normal. - No specimens collected. Allergies Allergy/AdvReac Type Severity Reaction Status Date / Time bee venom protein (honey bee) Allergy Severe HAS AN Verified 06/10/21 19:10 EPIPEN FOR REACTIONS latex Allergy Intermediate HIVES Verified 06/10/21 19:10 Iodinated Contrast Media Allergy Mild RASH Verified 06/10/21 19:10 Home Medications Medication Instructions Recorded Confirmed Type cyanocobalamin (vitamin B-12) 1,000 mcg PO QAM tab 02/27/19 06/10/21 History 1,000 mcg tablet,extended release cyclosporine 0.05 % eye drops in a 1 drp OPB Q12H 03/26/19 06/10/21 History dropperette (Restasis) epinephrine 0.3 mg/0.3 mL 0.3 mg IM DIRECTED PRN 03/26/19 06/10/21 History injection, auto-injector (EpiPen) multivitamin with minerals 1 tab PO QAM 03/26/19 06/10/21 History metronidazole 0.75 % topical cream 1 appln TOP DAILY PRN 12/19/19 06/10/21 History ascorbate calcium (vitamin C) 500 500 mg PO DAILY #30 tab 12/30/19 06/10/21 Rx mg tablet cholecalciferol (vitamin D3) 125 125 mcg PO DAILY #30 cap 12/30/19 06/10/21 Rx mcg (5,000 unit) capsule coenzyme Q10 200 mg capsule 200 mg PO DAILY #30 cap 12/30/19 06/10/21 Rx cranberry fruit concentrate 250 mg 250 mg PO DAILY #90 tab 12/30/19 06/10/21 Rx chewable tablet (Azo Cranberry) echinacea 400 mg capsule 400 mg PO DAILY #90 cap 12/30/19 06/10/21 Rx krill oil 500 mg capsule 500 mg PO DAILY #30 cap 12/30/19 06/10/21 Rx lutein 25 mg-zeaxanthin 5 mg 1 cap PO DAILY #30 cap 12/30/19 06/10/21 Rx capsule magnesium 250 mg tablet 325 mg PO DAILY tab 06/09/20 06/10/21 History levothyroxine 88 mcg tablet 88 mcg PO QAM #90 tab 09/01/20 06/10/21 Rx (Synthroid) melatonin 5 mg capsule 10 mg PO HS #30 cap 04/08/21 06/10/21 Rx Patient History Medical History Acute pancreatitis Arthritis Hiatal hernia Hypertension Hypothyroidism Lyme disease Recurrent pancreatitis Surgical History H/O cataract extraction S/P bunionectomy right foot X 2 S/P tonsillectomy and adenoidectomy age 14 years Family History Mother Emphysema lung Father Myocardial infarction Hypertension Denies family history of Colon cancer Ovarian cancer Prostate cancer Autoimmune disease Pancreatitis Breast cancer Social History Smoking Status: Never smoker Second Hand Exposure: No; Hx Alcohol Use: No Hx Substance Use: No Preferred Language: Maldivian Communication Ability: Effective Head Of Maintenance Required: No Beliefs That Will Affect Care: None marital status: Current Living Situation: Spouse Current Living Situation Comment: lives with in [place] 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 Other Information That Helps Us Care for You: No other: 4 kids Feels Safe at Home: Yes Safety Concerns: Feels Safe At This Time Childhood Exposure to Second-Hand Smoke: Yes Dental Care, Regularly: Yes Physical Activity Frequency: Does not Exercise Seatbelt Use: always Sunscreen Use: No Assistive Devices: None Review of Systems Review of Systems: All systems reviewed & are unremarkable except as noted in Subjective Physical Exam Constitutional: WD/WN, vitals as above Eyes: sclera anicteric Neck: trachea midline, no thyromegaly Respiratory: normal respiratory effort, lungs clear to auscultation Cardiovascular: RRR, no murmur, no edema Gastrointestinal (Abdomen): Inspection/Auscultation: abdomen normal to inspection; abdomen not distended Percussion/Palpation: abdomen soft; no guarding moderately tender over the epigastrium, no rebound, no abd ecc hymosis Skin: no rashes, warm and dry Psychiatric: Orientation: alert and oriented x 3 Affect: + tearful affect Results & Data ([facility]) Vital Signs (Past 12 Hours) Vital Signs Temp Pulse Resp BP Pulse Ox 06/11/21 07:51 37.0 C 85 16 191/83 H 92 06/11/21 01:05 187/92 H Laboratory Results 06/11/21 06/10/21 06/10/21 Range/Units 08:00 20:07 19:19 WBC (4.8-10.8) K/uL RBC (4.2-5.4) M/uL Hgb (12.0-16.0) g/dL POC Hgb (12.0-16.0) g/dl Hct (37-47) % POC Hct (37-47) % MCV (80-100) fL MCH (25-34) pg MCHC (32-36) g/dL RDW Std Deviation (36.4-46.3) fL RDW Coeff of Estrellita (11.5-14.5) % Plt Count (130-400) K/uL MPV (7.4-10.4) fL Immature Gran % (Auto) % Neut % (Auto) % Lymph % (Auto) % Callahan % (Auto) % Eos % (Auto) % Baso % (Auto) % Neut # (Auto) (1.4-6.5) K/uL Lymph # (Auto) (1.2-3.4) K/uL Callahan # (Auto) (0.11-0.59) K/uL Eos # (Auto) (0-0.5) K/uL Baso # (Auto) (0-0.2) K/uL Immature Gran # (Auto) (0.00-0.02) K/uL PT (9.0-12.0) Seconds INR (0.9-1.1) APTT (21.0-31.0) Seconds PTT Ratio POC Sodium (135-144) mmol/L Sodium 139 (136-145) mmol/L POC Potassium (3.3-5.0) mmol/L Potassium 4.3 D (3.5-5.1) mmol/L POC Chloride (101-112) mmol/L Chloride 105 (98-107) mmol/L Carbon Dioxide 24 (21-32) mmol/L POC Total CO2 (24-31) mmol/L Anion Gap 10.0 (3-11) POC Anion Gap (16-25) mmol/L POC BUN (7-18) mg/dl BUN 13 (7-18) mg/dl Creatinine 0.73 (0.6-1.2) mg/dl POC Creatinine (0.6-1.3) mg/dl Est Cr Clr Drug Dosing 55.2 ml/min Est GFR ( Amer) 88.9 ml/min Est GFR (Non-Af Amer) 76.7 ml/min BUN/Creatinine Ratio 17.8 (10-20) Glucose 174 H (70-99) mg/dl POC Glucose (other) (70-99) mg/dl Lactate (0.4-2.0) mmol/L Calcium 9.6 (8.5-10.1) mg/dl POC Ioniz Calcium Susan (1.12-1.32) mmol/l Total Bilirubin 0.7 (0.2-1) mg/dl AST 22 (15-37) U/L ALT 24 (12-78) U/L Alkaline Phosphatase 65 (45-117) U/L Troponin I (0-0.045) ng/ml Total Protein 7.7 (6.4-8.2) gm/dl Albumin 3.6 (3.4-5.0) gm/dl Globulin 4.1 H (2.5-4.0) gm/dl Albumin/Globulin Ratio 0.9 (0.9-2) Lipase 2092 H (73-393) U/L Urine Color Yellow Urine Appearance Clear (Clear) Urine pH 7.5 (4.5-7.5) Ur Specific [place] 1.014 (1.000-1.030) Urine Protein 1+ H (Negative) Urine Glucose (UA) Negative (Negative) Urine Ketones 2+ H (Negative) Urine Blood Trace H (Negative) Urine Nitrite Negative (Negative) Urine Bilirubin Negative (Negative) Urine Urobilinogen Negative (Negative) Ur Leukocyte Esterase Negative (Negative) Urine WBC (Auto) 0 (0-5) /hpf Urine RBC (Auto) 0-4 (0-4) /hpf U Hyaline Cast (Auto) 0 (0-5) /lpf U Epithel Cells (Auto) 0-5 (0-5) /lpf Urine Bacteria (Auto) Negative (Negative) COVID-19 Eval Order SARS-CoV-2 (PCR) NEGATIVE (Negative) 06/10/21 06/10/21 06/10/21 Range/Units 19:19 18:24 18:20 WBC (4.8-10.8) K/uL RBC (4.2-5.4) M/uL Hgb (12.0-16.0) g/dL POC Hgb 16.0 (12.0-16.0) g/dl Hct (37-47) % POC Hct 47 (37-47) % MCV (80-100) fL MCH (25-34) pg MCHC (32-36) g/dL RDW Std Deviation (36.4-46.3) fL RDW Coeff of Estrellita (11.5-14.5) % Plt Count (130-400) K/uL MPV (7.4-10.4) fL Immature Gran % (Auto) % Neut % (Auto) % Lymph % (Auto) % Callahan % (Auto) % Eos % (Auto) % Baso % (Auto) % Neut # (Auto) (1.4-6.5) K/uL Lymph # (Auto) (1.2-3.4) K/uL Callahan # (Auto) (0.11-0.59) K/uL Eos # (Auto) (0-0.5) K/uL Baso # (Auto) (0-0.2) K/uL Immature Gran # (Auto) (0.00-0.02) K/uL PT (9.0-12.0) Seconds INR (0.9-1.1) APTT (21.0-31.0) Seconds PTT Ratio POC Sodium 142 (135-144) mmol/L Sodium (136-145) mmol/L POC Potassium 3.7 (3.3-5.0) mmol/L Potassium (3.5-5.1) mmol/L POC Chloride 104 (101-112) mmol/L Chloride (98-107) mmol/L Carbon Dioxide (21-32) mmol/L POC Total CO2 26 (24-31) mmol/L Anion Gap (3-11) POC Anion Gap 17.0 (16-25) mmol/L POC BUN 15 (7-18) mg/dl BUN (7-18) mg/dl Creatinine (0.6-1.2) mg/dl POC Creatinine 0.6 (0.6-1.3) mg/dl Est Cr Clr Drug Dosing ml/min Est GFR ( Amer) ml/min Est GFR (Non-Af Amer) ml/min BUN/Creatinine Ratio (10-20) Glucose (70-99) mg/dl POC Glucose (other) 138 H (70-99) mg/dl Lactate 1.3 (0.4-2.0) mmol/L Calcium (8.5-10.1) mg/dl POC Ioniz Calcium Susan 1.11 L (1.12-1.32) mmol/l Total Bilirubin (0.2-1) mg/dl AST (15-37) U/L ALT (12-78) U/L Alkaline Phosphatase (45-117) U/L Troponin I (0-0.045) ng/ml Total Protein (6.4-8.2) gm/dl Albumin (3.4-5.0) gm/dl Globulin (2.5-4.0) gm/dl Albumin/Globulin Ratio (0.9-2) Lipase (73-393) U/L Urine Color Urine Appearance (Clear) Urine pH (4.5-7.5) Ur Specific [place] (1.000-1.030) Urine Protein (Negative) Urine Glucose (UA) (Negative) Urine Ketones (Negative) Urine Blood (Negative) Urine Nitrite (Negative) Urine Bilirubin (Negative) Urine Urobilinogen (Negative) Ur Leukocyte Esterase (Negative) Urine WBC (Auto) (0-5) /hpf Urine RBC (Auto) (0-4) /hpf U Hyaline Cast (Auto) (0-5) /lpf U Epithel Cells (Auto) (0-5) /lpf Urine Bacteria (Auto) (Negative) COVID-19 Eval Order Covid19 at [facility] SARS-CoV-2 (PCR) (Negative) 06/10/21 06/10/21 06/10/21 Range/Units 18:20 18:20 18:20 WBC 8.93 (4.8-10.8) K/uL RBC 4.72 (4.2-5.4) M/uL Hgb 15.5 (12.0-16.0) g/dL POC Hgb (12.0-16.0) g/dl Hct 47.1 H (37-47) % POC Hct (37-47) % MCV 99.8 (80-100) fL MCH 32.8 (25-34) pg MCHC 32.9 (32-36) g/dL RDW Std Deviation 47.8 H (36.4-46.3) fL RDW Coeff of Estrellita 13.1 (11.5-14.5) % Plt Count 293 (130-400) K/uL MPV 9.5 (7.4-10.4) fL Immature Gran % (Auto) 0.3 % Neut % (Auto) 81.7 % Lymph % (Auto) 11.1 % Callahan % (Auto) 6.0 % Eos % (Auto) 0.2 % Baso % (Auto) 0.7 % Neut # (Auto) 7.29 H (1.4-6.5) K/uL Lymph # (Auto) 0.99 L (1.2-3.4) K/uL Callahan # (Auto) 0.54 (0.11-0.59) K/uL Eos # (Auto) 0.02 (0-0.5) K/uL Baso # (Auto) 0.06 (0-0.2) K/uL Immature Gran # (Auto) 0.03 H (0.00-0.02) K/uL PT 9.9 (9.0-12.0) Seconds INR 1.0 (0.9-1.1) APTT 22.3 (21.0-31.0) Seconds PTT Ratio 0.8 POC Sodium (135-144) mmol/L Sodium 140 (136-145) mmol/L POC Potassium (3.3-5.0) mmol/L Potassium 3.7 (3.5-5.1) mmol/L POC Chloride (101-112) mmol/L Chloride 106 (98-107) mmol/L Carbon Dioxide 25 (21-32) mmol/L POC Total CO2 (24-31) mmol/L Anion Gap 9.0 (3-11) POC Anion Gap (16-25) mmol/L POC BUN (7-18) mg/dl BUN 15 (7-18) mg/dl Creatinine 0.66 (0.6-1.2) mg/dl POC Creatinine (0.6-1.3) mg/dl Est Cr Clr Drug Dosing 61.1 ml/min Est GFR ( Amer) 95.3 ml/min Est GFR (Non-Af Amer) 82.3 ml/min BUN/Creatinine Ratio 23.0 H (10-20) Glucose 136 H (70-99) mg/dl POC Glucose (other) (70-99) mg/dl Lactate (0.4-2.0) mmol/L Calcium 9.5 (8.5-10.1) mg/dl POC Ioniz Calcium Susan (1.12-1.32) mmol/l Total Bilirubin 0.6 (0.2-1) mg/dl AST 23 (15-37) U/L ALT 23 (12-78) U/L Alkaline Phosphatase 67 (45-117) U/L Troponin I < 0.015 (0-0.045) ng/ml Total Protein 7.3 (6.4-8.2) gm/dl Albumin 3.6 (3.4-5.0) gm/dl Globulin 3.7 (2.5-4.0) gm/dl Albumin/Globulin Ratio 1.0 (0.9-2) Lipase 7778 H (73-393) U/L Urine Color Urine Appearance (Clear) Urine pH (4.5-7.5) Ur Specific [place] (1.000-1.030) Urine Protein (Negative) Urine Glucose (UA) (Negative) Urine Ketones (Negative) Urine Blood (Negative) Urine Nitrite (Negative) Urine Bilirubin (Negative) Urine Urobilinogen (Negative) Ur Leukocyte Esterase (Negative) Urine WBC (Auto) (0-5) /hpf Urine RBC (Auto) (0-4) /hpf U Hyaline Cast (Auto) (0-5) /lpf U Epithel Cells (Auto) (0-5) /lpf Urine Bacteria (Auto) (Negative) COVID-19 Eval Order SARS-CoV-2 (PCR) (Negative) Diagnostic Findings CTAP: FINDINGS: Lung bases: The heart is normal in size and without pericardial effusion. The coronary arteries are densely calcified. There is a large calcified granuloma in the left lower lobe. The lung bases are otherwise clear noting bibasilar scarring/atelectasis. Liver: The unenhanced liver is normal in size, contour, and attenuation. There is no intrahepatic biliary ductal dilatation. There are calcified hepatic granulomas. Gallbladder: Unremarkable. Spleen: Normal in size and attenuation. There are calcified splenic granulomas. Pancreas: There is mild infiltration and fluid seen around the distal pancreatic body/tail. No organized peripancreatic fluid collection is identified. Adrenal glands: Unremarkable. Kidneys: The unenhanced kidneys demonstrate cortical atrophy and are without hydronephrosis. Numerous renal sinus cysts are seen bilaterally. There are punctate nonobstructing left renal calculi. No right renal calculi are identified. No ureteral stone is seen. There is no evidence of contour deforming renal mass lesion. Abdominal vasculature: The abdominal aorta is normal in course and caliber noting moderate atherosclerotic calcification. Stomach and bowel: There is a large hiatal hernia, with approximately half of the stomach located in the thoracic cavity. There is moderate: diverticulosis without CT evidence of acute diverticulitis. No bowel obstruction is identified. The appendix is well-visualized and normal. Peritoneum: There is no intraperitoneal free air or abdominal ascites. There is a fat-containing umbilical hernia. Lymphadenopathy: None. Pelvic viscera: The bladder is normal as visualized. There are calcified uterine fibroids. No adnexal lesion is seen. Skeletal structures: The skeletal structures are osteopenic. There is moderate lumbosacral spondylosis. Hemangiomas are noted in the body of T8, T12, and L2. No lytic or blastic lesions are seen. IMPRESSION: 1. Suboptimal examination without oral and IV contrast. 2. There is mild infiltration and fluid identified around the distal pancreatic body/tail. Correlate with clinical findings and serum amylase/lipase levels for evidence of acute pancreatitis. 3. Large hiatal hernia. 4. Colonic diverticulosis without CT evidence of acute diverticulitis. 5. Left-sided nephrolithiasis. 6. Additional findings as above. MRCP: [facility] local[facility] images demonstrate no gross extra abdominal abnormality. Right hemidiaphragmatic elevation with moderate cardiomegaly. Large hiatal hernia. Mild interstitial and peripancreatic edema with trace free fluid within the lesser sac and abdominal left upper quadrant. Study is mildly motion degraded. No pancreatic ductal dilation or acute peripancreatic fluid collection. No evidence of pancreatic divisum. Normal caliber of the common bile duct. No intrahepatic biliary ductal dilation or biliary filling defects. Unremarkable gallbladder. Renal sinus cysts of the bilateral kidneys. IMPRESSION: 1. Findings compatible with mild acute pancreatitis. No pancreatic ductal dilation. 2. No biliary ductal dilation or biliary filling defects. 3. Large hiatal hernia redemonstrated. (1) Acute pancreatitis Acute pancreatitis complication: unspecified Pancreatitis type: unspecified pancreatitis type Qualified Code(s): K85.90 - Acute pancreatitis without necrosis or infection, unspecified
--- NOTE | 2021-06-11 17:40 | Hospitalist Progress Note ---
Date of Service June 11, 2021 Assessment & Plan (1) Acute pancreatitis: Plan: Acute pancreatitis (recurrent problem) Presenting lipase 7778 LFTs within normal limits (0.6/23/) CT of the abdomen and pelvis shows mild infiltration and fluid distal to the pancreatic body/tail without biliary ductal dilatation MRCP shows pancreatitis but no ductal dilatation or gallbladder abnormality Autoimmune work-up done in the past (immunoglobulins low, BRITTA elevated) Multiple gallbladder ultrasounds done in the past and negative Patient does not drink alcohol Triglyceride level normal at 28 Continue n.p.o. status Continue IV hydration (transition to D5 LR) Increase Dilaudid for added pain control Consult GI to help identify etiologyrecommendations appreciated (2) Recurrent pancreatitis: Plan: See above (3) Hypothyroidism: Plan: Resume levothyroxine when able to take p.o. Admission and Anticipated Discharge Date Admission Date: June 10, 2021 Subjective Patient seen on daily rounds today. She is a 81-year-old white female with a history of pancreatitis (recurrent) who presented to the ED yesterday complaining of abrupt onset of abdominal pain. Pain radiating into her back. Was found to have acute pancreatitis with a lipase of 7778. The rest of her lab data was unremarkable including her LFTs. CT of the abdomen and pelvis showed mild infiltration and fluid distal to the pancreatic body and tail without biliary ductal dilatation. MRCP showed pancreatitis but no ductal dilatation, cyst, pseudocyst. She has had multiple gallbladder ultrasounds in the past that are within normal limits. Triglyceride level is normal at 28. She does not drink alcohol. Her only medication prescribed is Synthroid. She is not diabetic. She does take multiple herbal supplements. Has had autoimmune work-up in the past with low immunoglobulin levels and mildly elevated BRITTA (unknown significance) Currently, patient reports persistent and significant abdominal pain. Dilaudid 0.5 mg ineffective. Currently denies nausea Review of Systems Review of Systems: All systems reviewed and are unremarkable except as noted in HPI and below Denies fevers, chills, headache, nasal congestion, sore throat, cough, chest pain, shortness of breath, palpitations, orthopnea, PND, nausea, vomiting, diarrhea, constipation, dysuria, hematuria, frequency, back pain, joint pain or swelling, easy bruising or bleeding, skin lesions or rashes. Physical Exam Physical Exam: General patient in hospital bed appears mildly uncomfortable but not ill or toxic HEENT: Head is AT/NC buccal mucosa is moist and pink Neck: No JVD. Negative hepatojugular reflex Cardiac: RRR without M/G/R Lungs: CTA without W/R/R Abdomen: No evidence of Steffanie or Hendricks Galindo sign. X4.] Soft with exquisite epigastric and R/L UQ tenderness Extremities: No peripheral clubbing cyanosis or edema Neuro: A&O X4 cranial nerves II through XII are grossly intact no focal neuro deficits Skin: No obvious skin lesions or rashes Psych: Appropriate affect pleasant and cooperative Results & Data Results & Data ([facility]) Vital Signs (Past 12 Hours) Vital Signs Temp Pulse Resp BP Pulse Ox 06/11/21 15:31 36.9 C 96 H 16 153/78 H 90 06/11/21 07:51 37.0 C 85 16 191/83 H 92 Laboratory Results 06/10/21 18:20 06/11/21 08:00 PG Care Time/CCT Total # of Minutes Spent Total Time Spent with Patient: Total time spent is greater than 50% in coordination of care (as documented) at patient's floor/unit and/or counseling patient: Coding Level of Care Code 21306 Subseq Hosp Care Lvl 2 Diagnoses Acute pancreatitis K85.90 Acute pancreatitis complication: unspecified Pancreatitis type: unspecified pancreatitis type Recurrent pancreatitis K85.90 Hypothyroidism E03.9 Hypothyroidism type: acquired (1) Acute pancreatitis Acute pancreatitis complication: unspecified Pancreatitis type: unspecified pancreatitis type Qualified Code(s): K85.90 - Acute pancreatitis without necrosis or infection, unspecified (2) Hypothyroidism Hypothyroidism type: acquired Qualified Code(s): E03.9 - Hypothyroidism, unspecified
[2021-06-11] MEDS ORDERED: HYDROmorphone INJ 1 MG/ML SYRINGE IV STA (17:48)
[2021-06-11] MEDS ORDERED: PROCHLORPERAZINE 10 MG in SYRINGE 8 ML IV ONE (17:48)
[2021-06-11] MEDS ORDERED: LEVALBUTEROL HCL 0.63 MG/3 ML NEB NEB STA (23:11)
--- NOTE | 2021-06-11 23:12 | Communication Note ---
Date of Service: June 11, 2021 Called to patient bedside for complaints of SOB and hypoxia to 80%, up to 91% on 3LNC. Does not feel SOB on 3LNC. Reports abdominal pain from pancreatitis is getting better. On exam patient does have diffuse expiratory wheezes, no crackles appreciated. Xopenex nebulizer ordered and fluids held. XR Chest shows new consolidation in left lung worrisome for pneumonia. Patient started on vancomycin/cefepime for hospital-acquired pneumonia, possibly secondary to aspiration. MRSA nares pending, can d/c vancomycin if negative.
[2021-06-12] MEDS ORDERED: VANCOMYCIN CONSULT ACTIVE PRN ×2 (00:21→14:05)
[2021-06-12] MEDS ORDERED: VANCOMYCIN HCL 1,750 MG in SODIUM CHLORIDE 0.9% 500 ML IV ONE (01:00)
[2021-06-12] MEDS: CEFEPIME 2,000 MG in SYRINGE 0 ML IV SCH ×2 (01:32→15:15)
[2021-06-12] MEDS ORDERED: D5W AND LACTATED RINGERS 1,000 ML IV SCH (01:45)
[2021-06-12] MEDS: HYDROmorphone INJ 1 MG/ML SYRINGE IV PRN ×2 (02:03→06:04)
[2021-06-12] MEDS: ENOXAPARIN INJ 40 MG/0.4 ML SYR SQ SCH (06:05)
--- NOTE | 2021-06-12 08:01 | XRay Report ---
XR chest 1V portable HISTORY: hypoxia COMPARISON: Chest 06/10/2021. FINDINGS: There are low lung volumes. No pneumothorax. There is a large hiatus hernia, unchanged. The re is a new left basilar airspace opacity. The right lung is essentially clear. As a calcified granul viktoriya within the left lower lobe, unchanged. IMPRESSION: 1. There is a new left basilar airspace opacity. This may represent pneumonia and could be secondary to aspiration. 2. Large hiatus hernia, unchanged. ACT 112: Negative or not required by law. Electronically signed by: Thomas Charles M.D. 06/12/2021 7:59 AM
[2021-06-12] MEDS ORDERED: HYDROmorphone INJ 1 MG/ML SYRINGE IV PRN (08:52)
[2021-06-12] MEDS ORDERED: FUROSEMIDE 40 MG/4 ML VIAL IV ONE ×2 (09:15→09:26)
[2021-06-12 09:19] LABS: Hematocrit (blood only) 49.3 % (37-47); Mean Corpuscular Hemoglobin 33.2 pg (25-34); Mean Corpuscular Hgb Conc 32.5 g/dL (32-36); Mean Corpuscular Volume 102.3 fL (80-100); Mean Platelet Volume 9.8 fL (7.4-10.4); Platelet Count 287 K/uL (130-400); RDW Coefficient of Variation 13.9 % (11.5-14.5); RDW Standard Deviation 52.4 fL (36.4-46.3); Red Blood Count 4.82 M/uL (4.2-5.4); White Blood Count 24.65 K/uL (4.8-10.8)
[2021-06-12 09:37] LABS: Immature Granulocytes # (auto) 0.07 K/uL (0.00-0.02); Immature Granulocytes % (auto) 0.3 %; Lymphocytes # (auto) 0.49 K/uL (1.2-3.4); Monocytes % (auto) 6.9 %; Neutrophils # (auto) 22.39 K/uL (1.4-6.5); Neutrophils % (auto) 90.8 %
[2021-06-12 09:55] LABS: Albumin Globulin Ratio 0.7 (0.9-2); Albumin Level 2.8 gm/dl (3.4-5.0); BUN Creatinine Ratio 25.4 (10-20); Calcium 9.7 mg/dl (8.5-10.1); Creatinine Clr Calc Pharmacy 29.9 ml/min; Est GFR (African American) 42.3 ml/min; Est GFR (Non-African American) 36.5 ml/min; Globulin 3.8 gm/dl (2.5-4.0); Potassium 4.5 mmol/L (3.5-5.1); Total Protein 6.6 gm/dl (6.4-8.2)
[2021-06-12] MEDS ORDERED: ALBUT/IPRATROP 3MG/0.5MG NEB 3 ML VIAL NEB STA (10:35)
[2021-06-12] MEDS ORDERED: NALOXONE HCL 0.4 MG/1 ML VIAL/CARP IV STA (11:01)
[2021-06-12] MEDS ORDERED: LORazepam 2 MG/4 ML VIAL ONE (11:51)
[2021-06-12] MEDS ORDERED: RAPID SEQUENCE INDUCTION BAG ONE (12:18)
[2021-06-12] MEDS ORDERED: AMIODARONE 150MG / 100ML D5W IV ONE (12:21)
[2021-06-12] MEDS ORDERED: MAGNESIUM SULFATE / D5W 1 GM/100 ML BAG IV ONE (12:24)
[2021-06-12] MEDS: PHENYLEPHRINE HCL 20 MG in DEXTROSE 5% 500 ML IV SCH ×2 (12:30→20:28)
[2021-06-12] MEDS: ONDANSETRON INJ 2 MG/ML 2 ML VIAL IV PRN (12:30)
[2021-06-12] MEDS: NOREPINEPHRINE/D5W 8 MG/508 ML BAG IV SCH (12:30)
[2021-06-12] MEDS: VASOPRESSION #-# Do NOT Titrate #-# Option IV SCH ×2 (12:45→20:28)
[2021-06-12] MEDS ORDERED: NOREPINEPHRINE/D5W 8 MG/508 ML IV ONE (12:47)
[2021-06-12] MEDS ORDERED: HYDROCORTISONE SOD 100 MG in SYRINGE 0 ML IV ONE (13:00)
--- NOTE | 2021-06-12 13:02 | Hospitalist Progress Note ---
Date of Service June 12, 2021 Assessment & Plan (1) Sepsis with acute respiratory failure and septic shock: Plan: - 81 y/o WF with a PMHx of Hypothyroidism and recurrent pancreatitis admitted 06/10 with pancreatitis (Lipase 7778)-- recurrent issues without obvious cause - CT of A/P: pancreatitis without cyst/pseudocyst and ductal dilation - LFT's initially WNL - MRCP: pancreatitis without cyst/pseudocyst/abscess or ductal dilation - Triglyceride level WNL: 28 - Patient does not drink ETOH - seen by GI who started clear liquid diet lastnight and plan was for EUS as OP - Patient did not tolerate clear liquids-- had increased pain and nausea with multiple bouts of emesis - She initially was hydrated with IVF at 150cc/hr (initial overnight hours). 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 IVF were stopped and she was started on Cefepime/Vanco given concern for aspiration PNA - when seen by myself, still having severe abd pain requiring multiple doses of dilaudid but was A&O. No vomiting at the time of evaluation by myself by reported ongoing emesis overnight - Clinically, I agree that it seemed as if the patient have aspiration PNA (give n the recurrent episodes of vomiting and her Large HH seen on imaging). In addition, I thought there was some volume overload as she had crackles. Was otherwise HD stable (BP 136/66, HR 98, Resp 14, pulse Ox 94-98% on 3L) - initially plan was for transfer to the PCU - Pt given Lasix 40mg IV x 1 dose and BNP ordered-- elevated at 3397 - I had ordered CT of the chest, A/P to be done (did not want to use oral contrast given risk of aspiration)--> this was never done as unstable in interim - labs this am showing leukocytosis of 24k (?reactive from vomiting or from infection) and uptrending LFT's. Cefepime continued. Vanco had been stopped (MRSA neg) and Flagyl added - While awaiting imaging, patient got subsequent dose of Dilaudid for continue pain. In addition, subsequent bouts of emesis-- patient became increasing somnolent and pulse ox dropped to 80% on O2. - Was given Narcan 0.4mg IV. Patient became awake and immediately agitated. Was persistently hypoxic noncompliant with supplemental O2 requiring soft restraints and multiple staff holding her down. - Myself and Dr. Browne came to evaluate the patient - At this time, appeared to be in a sinus tachycardia (120's) with a BP of 153/87. Pulse ox 89% on 15L NRB but patient combative. - Pt given ativan 0.5mg IV x1 and she relaxed to allow use of supplemental O2. Soft restraints utilized. - Pt was otherwise HD stable; however, guarded. Case D/W ICU and plan was for transfer to the unit - Went back to the floor and at this time, patient was very tachycardic. EKG done showing A.Fib with RVR (180BPM). BP was low (60/30). Her fluids infused WO and BP improved to 110 systolic-- she was immediately brought to the ICU. Amiodarone bolus given in route - care transitioned over to the ICU team - Patient remained HD unstable and hypoxic. Was cardioverted (converted into a sinus tachycardia) - Patient full code-subsequently intubated. Started on pressor support and eventually stabilized - at this time, Patient has acute respiratory failure requiring ventilatory support. Exact etiology is unclear and multifactorial: -pancreatitis with ? ARDS -clearly with aspiration PNA (continue cefepime) -volume overload (fluid balance +4.7 cumulative) with worsening flash pulmonary edema likely related to her developed tachyarrhythmia , -Given her pancreatitis and persistent vomiting/sepsis syndrome-- I am wondering if she does have an acutely diseased GB. Her WBC is elevated and could be reactive; however, perhaps infectious in nature.--Flagyl added -after lengthy D/W daughter, she tells me that this patient has a known diseased GB and was seen by GI in [place]-- consider U/S of the RUQ--> at discretion of ICU team - overall, prognosis remains very guarded. Requiring pressor support (utilizing 3 pressors) along with ventilatory support. In addition, she is on amiodarone drip - and daughter both updated (2) Atrial fibrillation with RVR: Plan: - Likely sepsis driven due to catecholamine release - Currently on an amiodarone drip Plan: - appreciate care provided by ICU team to stabilize this patient - again, prognosis guarded Admission and Anticipated Discharge Date Admission Date: June 10, 2021 Supervising Physician Co-Signing Physician Notes I supervised Lisa Chapin PA-C on the care of this patient. I interviewed and examined the patient independently of her. The plan is as written in her note except for any following changes/exceptions: None Patient seen while in extremis in the afternoon. The patient had been increasingly somnolent and hypoxic. Narcan given which aroused the patient, but she became severely agitated and had multiple rounds of emesis. Increased work of breathing. Simultaneously, she went into afib with RVR with HR in the 150s. On non-rebreather, she maintained O2 sat ~89%, but had increasing trouble with work of breathing. BP fell to 110/70s. She was sent to the ICU where intubation was pursued along with cardioversion. She then went into shock and required 3 pressors before slowly recovering. Lisa Chapin alerted the and daughter of her precipitous decline and ICU transfer. Subjective Patient seen on daily rounds today. when seen early This morning, was noted to be on 3 L of supplemental oxygen. Apparently in the overnight hours had persistent episodes of vomiting. Was seen by overnight physician. IV fluids subsequently stopped. Chest x-ray was done that showed concern for left lower lobe infiltrate. Seems consistent with left lower lobe infiltrate and pulmonary vascular congestion. Had received multiple doses of IV Dilaudid and Phenergan for nausea Upon evaluation by myself this morning, was having persistent pain. She was awake but somnolent. Arousable nonetheless. She had coarse rhonchi at bedside but was otherwise hemodynamically stable. Blood pressure was 136/65. Heart rate was 90-100. Respiratory rate was 14-20. She was afebrile at 37.4. Pulse ox was 94% on 3 L. At that time, I had ordered a one-time dose of Lasix as clinically she appeared volume overloaded. A BNP was done and noted to be elevated at greater than 3000. In addition, I felt that there was potentially more going on in the GI tract given her persistent pain with nausea and vomiting despite her downtrending lipase. She was unable to tolerate any oral intake yesterday. Plan was for repeat CT scan of the abdomen and pelvis +/-RUQ ultrasound. Did not feel comfortable ordering oral contrast given her excessive sedation and concern for aspiration in the overnight hours. In addition, was planning on a CT scan of the chest to help differentiate pneumonia versus fluid overload. Plan was to transition to PCU Message from the nurse saying that patient's pulse ox was continuing to drop and she appeared to be more sedate. It was felt that the Dilaudid on board was causing excessive sedation and decreased respirations which was only affecting her oxygenation. Pulse ox was 80% on 3 L. Nurse told to increase to oxygen mask and give Narcan and I immediately went up to evaluate the patient. At the time of evaluation by myself, the Narcan took immediate effect. She was requiring 5 staff to hold her down in order to keep her oxygen on. She was placed on 15 L nonrebreather and her pulse ox at best was 88 - 89 %. Otherwise at that time, she was hemodynamically stable (heart rate and blood pressure). Initial plan was for transition to the PCU; however, spoke with ICU team and instead patient was deemed ICU where they. Went back up to check on the patient and at this time, she started to become hemodynamically unstable. Heart rate was 150. EKG performed which appeared to be A. fib with rapid ventricular response at 180. Blood pressure was 110 systolic but it was difficult to get a blood pressure. Patient was immediately brought down to the ICU and upon arrival, pressure was difficult to obtain. Remained in a tachyarrhythmia. ICU team assumed care while report given to them. Although patient is a full code, she was refusing intubation (but clearly was not making educated decisions given her hypoxemia, tachycardia, and presumed sepsis). I quickly called the who gave permission to intubate. Patient given amiodarone bolus and subsequently cardioverted for added heart rate control. Blood pressure remained difficult to obtain. She was intubated and started on pressor support (vasopressin, Levophed, and phenylephrine). Central line placed. Arterial line placed for pressure monitoring. After ICU team spent lengthy amount of time with patient, she became hemodynamically stable on ventilatory support and pressor support. Review of Systems Review of Systems: This morning patient's main complaints were abdominal pain with nausea. Overnight had hypoxemia but apparently did not complain of any shortness of breath. Denied shortness of breath when seen by myself. Overnight had persistent bouts of emesis Review of systems as of this morning: Patient denied fevers, chills, chest pain, shortness of breath, diarrhea, constipation. Physical Exam Physical Exam: General: Patient appeared moderately ill when seen initially. Throughout the course of several hours, she became critically ill and confused HEENT: Head is AT/NC buccal mucosa is moist and pink Neck: No JVD. Negative hepatojugular reflex Cardiac: Initially was in a regular rate and rhythm but throughout the course of several hours, became tachycardic and irregular Lungs: Initially when seen, was breathing comfortably on supplemental oxygen. Her respiratory rate was 14. She had no accessory muscle use or labored breathing. She did have scattered rhonchi noted at the bedside. Bibasilar crackles and end expiratory wheezes throughout. Throughout the course of several hours, her breathing became labored with associated hypoxemia Abdomen: Normoactive X4. Exquisitely tender in the epigastric region Extremities: Initially without clubbing, cyanosis, or edema. Throughout the course of several hours did develop edema of the left leg Neuro: Patient was excessively somnolent this morning but arousable. Answered all questions appropriately. With hypoxemia she became confused Results & Data Results & Data ([facility]) Vital Signs (Past 12 Hours) Vital Signs Temp Pulse Resp BP Pulse Ox 06/12/21 11:19 77 16 87 L 06/12/21 07:55 36.6 C 99 H 14 136/66 94 Laboratory Results 06/12/21 09:07 06/12/21 14:58 Total bilirubin: 1.0 AST: 54 ALT: 27 Lipase: 1529 BNP: 3397 Diagnostic Findings CXR: Left basilar infiltrate with superimposed pulmonary vascular congestion PG Care Time/CCT Total # of Minutes Spent Total Time Spent with Patient: Total time spent is greater than 50% in coordination of care (as documented) at patient's floor/unit and/or counseling patient: Prolonged Care Time 90 min including handing care off to ICU team, calling 3x and speaking to him in person and calling the daughter, coordination of care, talking with attending and multiple exams 30 min including time spent with patient Coding Level of Care Code 45425 Subseq Hosp Care Lvl 3 Diagnoses Sepsis with acute respiratory failure and septic shock A41.9; R65.21; J96.00 Atrial fibrillation with RVR I48.91
[2021-06-12 13:08] LABS: iSTAT Art Bld Gas pCO2 Correct 68 mmHg (35-46); iSTAT Art Bld Gas pH Corrected 7.129 (7.35-7.45); iSTAT Arterial Blood Gas HCO3 23 meg/L (19-24); iSTAT Arterial Blood Gas pCO2 68 mmHg (35-46); iSTAT Arterial Blood Gas pH 7.13 (7.35-7.45); iSTAT Arterial Blood Gas pO2 82 mmHg (80-95); iSTAT Arterial Blood Gas pO2 C 82; iSTAT Carbon Dioxide 25 mmol/L (24-31); iSTAT FiO2 100 %; iSTAT Hematocrit 49 % (37-47); iSTAT Hemoglobin 16.7 g/dl (12.0-16.0); iSTAT Potassium 4.3 mmol/L (3.3-5.0); iSTAT Site Art Line; iSTAT Sodium 140 mmol/L (135-144)
[2021-06-12] MEDS ORDERED: STAT IV Infusion **Titration per Protocol STA ×4 (13:21→14:34)
[2021-06-12] MEDS ORDERED: AMIODARONE / D5W 150 MG/100 ML BAG IV STA (13:28)
[2021-06-12] MEDS ORDERED: 0.2 MICRON FILTER SET 1 EA IV ONE ×2 (13:28→14:31)
[2021-06-12] MEDS ORDERED: VASOPRESSIN 20 UNITS in 0.9 % SODIUM CHLORIDE 100 ML IV SCH (13:30)
[2021-06-12] MEDS ORDERED: VANCOMYCIN HCL 1,500 MG in SODIUM CHLORIDE 0.9% 500 ML IV ONE (14:05)
--- NOTE | 2021-06-12 14:09 | Procedure Note ---
Procedure Note Date of Service June 12, 2021 Note INTUBATION PROCEDURE NOTE: Dr. Parag Hsieh A time-out was completed verifying correct patient, procedure, site, positioning. Patient was evaluated and required intubation for acute hypoxemic respiratory failure and altered mental status. Sedative agent used: 25 mg of etomidate Paralysis agent used: 50 mg rocuronium Emergent consent was implied given patients rapidly declining clinical status and need for airway protection. Number of attempts: 1 The patient was prepared in the appropriate fashion. Sedation was achieved utilizing etomidate and rocuronium. The patient was profoundly hypoxemic and saturating in the mid 80s on 100% oxygen. They were also profoundly hypotensive prior to the intubation. 7.5 Fijian endotracheal tube was placed under video laryngoscope guidance to 23 cm at the lip. The stylette was removed and balloon was inflated with 10mL of air. Appropriate Colorimetric change was appreciated. Bilateral breath sounds were heard without air sounds in the abdomen. During the intubation procedure, the patient began vomiting brown emesis. This was suctioned clear and the patient was bronched. Please review the bronchoscopy note in a separate note. Post Intubation Chest X-ray ordered. Patient tolerated the procedure well and there were no immediate complications. Coding CPT Codes Resuscitation - Resuscitation: 20376 Endotracheal Intubation, emergency ([id number]) [facility] [place] Procedure Codes (Charges) Resuscitation Resuscitation: 69904 Endotracheal Intubation, emergency
--- NOTE | 2021-06-12 14:12 | Procedure Note ---
Procedure Note Date of Service June 12, 2021 Note Patient was found to be profoundly hypotensive and tachycardic with A. fib with heart rates in the 160s. Pacer pads were placed. Sedation was not utilized due to severe hypotension and altered mental status. She was delivered a sync hronized cardioversion with 150 J. Her atrial fibrillation reverted to sinus tachycardia with rates of 130. She continued to be hypotensive and the patient was then emergently intubated. Please see intubation note for separate details. Coding CPT Codes Resuscitation - Resuscitation: 61458 Cardioversion electric, ext ([id number]) [facility] [place] Codes (Charges) Resuscitation Resuscitation: 56748 Cardioversion electric, ext
--- NOTE | 2021-06-12 14:14 | Procedure Note ---
Supervising Physician Co-Signing Physician Notes No consent was signed as the procedure was emergent due to severe hypoxemia and vomiting. During the intubation process and laryngoscopy, the patient began vomiting of brown liquid substance. The secretions were noted to be going through the vocal cords and into her airway. I inserted the bronchoscope after the patient was intubated with an endotracheal tube. I inspected the trachea, nat and bilateral tracheobronchial tree. Thick brown secretions were noted at the nat which were aspirated clear. No obvious bleeding was seen. Saturations were in the mid 80s during this procedure and then improved to the low 90s. The bronchoscope was then withdrawn. The patient was hooked up to the ventilator.
--- NOTE | 2021-06-12 14:16 | Procedure Note ---
Procedure Note Date of Service June 12, 2021 Note ARTERIAL LINE PROCEDURE NOTE: Procedure: Arterial Line Placement Indication: Monitoring on Pressors Procedure was done emergently due to severe hypertension. A time-out was completed verifying correct patient, procedure, site, posi tioning, and implant(s) or special equipment if applicable. Patients left wrist was prepped and draped in the usual sterile fashion. Ultrasound guidance was used to aid needle placement. A 20g Arrow arterial line was introduced into the left radial artery. Catheter was threaded, and the needle was removed with appropriate blood return. Good waveform was observed. The patient tolerated the procedure well. Blood Loss: Minimal Complications: None Coding CPT Codes Tubes, Drains, and Vasc Access - Tubes, Drains, and Vasc Access: [id number] Insertion Catheter, Artery ([id number]) Tubes, Drains, and Vasc Access - Tubes, Drains, and Vasc Access: [id number] Ultrasound Guidance For Vascular ([id number]) [facility] [place]Charges) Tubes, Drains, and Vasc Access Procedure 1: Tubes, Drains, and Vasc Access: [id number] Insertion Catheter, Artery Procedure 2: Tubes, Drains, and Vasc Access: [id number] Ultrasound Guidance For Vascular
--- NOTE | 2021-06-12 14:18 | Procedure Note ---
Procedure Note Date of Service June 12, 2021 Note FEMORAL CENTRAL LINE PROCEDURE NOTE: Procedure: Femoral Central Line Placement Indication: Central Drug Administration, Poor Venous Access, Multiple Lab Draws Necessary, etc. Procedure was done emergently due to severe hypotension and poor access. A time-out was completed verifying correct patient, procedure, site, positioning, and implants(s) or special equipment if applicable. Patients right groin was cleansed and draped in the typical sterile fashion using Chloraprep. The Femoral Vein and Femoral Artery were identified using ultrasound. Femoral Vein was cannulated under direct ultrasound guidance using an introducer needle on a syringe. Good venous blood return was maintained prior to removal of syringe from introducer needle. Using Seldinger Technique, a guide wire was advanced through the introducer needle without resistance. The introducer needle was removed and ultrasound images were obtained of the guide wire within the Femoral Vein and saved to the patients medical record. A small incision was made in penetrating fashion at the guide wire insertion site utilizing an 11 blade scalpel. The dilator was advanced to the vessel without resistance. The dilator was exchanged for the triple lumen catheter which was advanced into the vessel without resistance. The guide wire was removed intact from the catheter without issue. Claves were placed on each catheter tip with confirmation of good blood flow from each lumen. Each port was easily flushed with sterile saline. The catheter was placed at the hub and sutured in place. BioPatch was applied to the catheter and a sterile Tegaderm dressing was applied over the catheter with careful attention to sterility. Patient tolerated procedure well. No immediate complications were met. Coding CPT Codes Tubes, Drains, and Vasc Access - Tubes, Drains, and Vasc Access: [id number] Ultrasound Guidance For Vascular ([id number]) Tubes, Drains, and Vasc Access - Tubes, Drains, and Vasc Access: [id number] Place catheter in vein superior or inferior vena cava ([id number]) [facility] [place]Charges) Tubes, Drains, and Vasc Access Procedure 1: Tubes, Drains, and Vasc Access: [id number] Ultrasound Guidance For Vascular Procedure 2: Tubes, Drains, and Vasc Access: [id number] Place catheter in vein superior or inferior vena cava
--- NOTE | 2021-06-12 14:23 | Critical Care Consultation ---
Date of Consultation June 12, 2021 Assessment & Plan (1) Sepsis with acute respiratory failure and septic shock: (2) ARDS (adult respiratory distress syndrome): (3) Pancreatitis: 81-year-old female with a history of recurrent pancreatitis presenting to the hospital with septic shock and ARDS. She was found to have pancreatitis. Neurologic: We will sedate her with Precedex and fentanyl. No obvious focal abnormalities. Pulmonary: ARDS secondary to aspiration and pancreatitis. Continue lung protective ventilation strategy. ABG demonstrates combined respiratory and metabolic acidosis. We will increase her respiratory rate to 28 from 22. Status post bronchoscopy to clear secretions from her airway secondary to massive emesis. Will consider proning if she does not have a significant improvement in her FiO2 requirements in the next 1 to 2 hours. Continue broad-spectrum antibiotics. Cardiovascular: Profoundly hypotensive on presentation to the ICU. Pressors are aggressively being weaned off. Maintain mean arterial pressure above 65 mmHg. Currently on vasopressin. Received stress dose steroids on presentation to the ICU. Echocardiogram ordered. Status post cardioversion in the ICU with return of rhythm to sinus rhythm. Will initiate amiodarone to maintain sinus rhythm. She received amiodarone bolus prior to cardioversion. Troponin ordered. Gastrointestinal: Gastroenterology consulted for pancreatitis. Triglycerides ordered. 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 She has a history of a large hiatal hernia. Will initiate PPI. OG tube to be placed. Strict n.p.o. MRCP 06/10/2021 with findings of acute mild pancreatitis. No biliary ductal dilation or biliary filling defects. Large hiatal hernia. Lipase trending down from [id number]. We will hold on further fluid administration due to her ARDS picture. Renal: CRUZ in the setting of septic shock. Monitor urine output closely. We will repeat a full CMP. Will check lactate. She has evidence of metabolic acidosis. 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 Infectious disease: We will check blood cultures, urinalysis and sputum cultures. Procalcitonin ordered. Leukocytosis in the setting of sepsis and ARDS. Likely with aspiration pneumonitis/pneumonia. Will monitor for necrotizing pancreatitis. Continue cefepime and Flagyl. We will give a dose of vancomycin. MRSA screen negative on admission. There is a white pustular area noted in her labial fold per nursing. No obvious drainage seen. We will continue to monitor. Hematologic: We will check lower extremity Doppler due to asymmetry of the legs. Left leg appears more swollen than the right leg. Endocrine: TSH within normal limits from March. Given stress dose steroids upon ICU arrival. We will continue with hydrocortisone 50 mg every 6 hours. We will continue levothyroxine starting tomorrow. Lines and tubes: Right femoral triple-lumen, left radial arterial line, Cain catheter and endotracheal tube placed 06/12/2021 VTE prophylaxis: SCDs. CODE STATUS: Full code Family at bedside: Waiting in the waiting room. Updated by hospitalist.. Disposition: Remain in the ICU. Discussed at length with the patient's hospitalist team, bedside nursing and respiratory therapy. I have personally spent 86 minutes of critical care time in the direct management of this patient. This is a life/limb threatening event. This includes time spent evaluating patient, direct bedside care, chart review, placing orders, interpretation of diagnostic studies, discussion with consultants, patient, and family members, as well as other required patient management activities. This time is exclusive of all separately billable procedures, and teaching time and separate from and in addition to any other critical care service time. Thank you for allowing us to participate in the care of this patient. History of Present Illness Reason for Consultation: Septic shock and ARDS Attending Physician: Niraj Browne MD History of Present Illness 78-year-old female with a past medical history of recurrent pancreatitis admitted to the hospital due to epigastric pain with nausea and vomiting. She was found to have a lipase greater than 7000 during her admission. Overnight, she was having episodes of vomiting and worsening hypoxemia. This morning she was found to be in worsening respiratory distress and atrial fibrillation with rapid ventricular response. She was urgently moved down to the ICU and placed on a nonrebreather. I was unable to obtain history from the patient due to her altered mental status and severe respiratory distress. I did speak with the patient's hospitalist team at bedside and nursing. I reviewed the records as well. While in the ICU she was very hypotensive and it was difficult to get blood pressure readings on her. We were able to palpate a pulse. She was found to be in atrial fibrillation with rates in the 160s. I urgently cardioverted her with improvement of her heart rates in the 130s. She was then emergently intubated due to ongoing hypoxemic respiratory failure and ARDS. She was started on broad-spectrum antibiotics. She is followed by GI for possible autoimmune pancreatitis. I performed a yzyxy-de-aodb ultrasound at bedside of her heart and lungs. The IVC appeared full with minimal respiratory variation. LVEF appeared intact. B- lines noted bilaterally on pleural ultrasound. No evidence of pneumothorax seen. Allergies Allergy/AdvReac Type Severity Reaction Status Date / Time bee venom protein (honey bee) Allergy Severe HAS AN Verified 06/10/21 19:10 EPIPEN FOR REACTIONS latex Allergy Intermediate HIVES Verified 06/10/21 19:10 Iodinated Contrast Media Allergy Mild RASH Verified 06/10/21 19:10 Home Medications Medication Instructions Recorded Confirmed Type cyanocobalamin (vitamin B-12) 1,000 mcg PO QAM tab 02/27/19 06/10/21 History 1,000 mcg tablet,extended release cyclosporine 0.05 % eye drops in a 1 drp OPB Q12H 03/26/19 06/10/21 History dropperette (Restasis) epinephrine 0.3 mg/0.3 mL 0.3 mg IM DIRECTED PRN 03/26/19 06/10/21 History injection, auto-injector (EpiPen) multivitamin with minerals 1 tab PO QAM 03/26/19 06/10/21 History metronidazole 0.75 % topical cream 1 appln TOP DAILY PRN 12/19/19 06/10/21 History ascorbate calcium (vitamin C) 500 500 mg PO DAILY #30 tab 12/30/19 06/10/21 Rx mg tablet cholecalciferol (vitamin D3) 125 125 mcg PO DAILY #30 cap 12/30/19 06/10/21 Rx mcg (5,000 unit) capsule coenzyme Q10 200 mg capsule 200 mg PO DAILY #30 cap 12/30/19 06/10/21 Rx cranberry fruit concentrate 250 mg 250 mg PO DAILY #90 tab 12/30/19 06/10/21 Rx chewable tablet (Azo Cranberry) echinacea 400 mg capsule 400 mg PO DAILY #90 cap 12/30/19 06/10/21 Rx krill oil 500 mg capsule 500 mg PO DAILY #30 cap 12/30/19 06/10/21 Rx lutein 25 mg-zeaxanthin 5 mg 1 cap PO DAILY #30 cap 12/30/19 06/10/21 Rx capsule magnesium 250 mg tablet 325 mg PO DAILY tab 06/09/20 06/10/21 History levothyroxine 88 mcg tablet 88 mcg PO QAM #90 tab 09/01/20 06/10/21 Rx (Synthroid) melatonin 5 mg capsule 10 mg PO HS #30 cap 04/08/21 06/10/21 Rx Patient History Medical History (Updated 06/12/21 @ 14:30 by Parag Hsieh MD) Acute pancreatitis ARDS (adult respiratory distress syndrome) Arthritis Hiatal hernia Hypertension Hypothyroidism Lyme disease Recurrent pancreatitis Surgical History H/O cataract extraction S/P bunionectomy right foot X 2 S/P tonsillectomy and adenoidectomy age 14 years Family History Mother Emphysema lung Father Myocardial infarction Hypertension Denies family history of Colon cancer Ovarian cancer Prostate cancer Autoimmune disease Pancreatitis Breast cancer Social History Smoking Status: Never smoker Second Hand Exposure: No; Hx Alcohol Use: No Hx Substance Use: No Preferred Language: Frisian Communication Ability: Effective Sourcing Coordinator Required: No Beliefs That Will Affect Care: None marital status: Current Living Situation: Spouse Current Living Situation Comment: lives with in [place] 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 Eyes: Pupils are equal round and reactive to light. Conjunctivae are normal. Anicteric sclera. Ears nose, mouth and throat: Mallampati 2. Patient was vomiting. Neck: Trachea is midline. Visual inspection is normal. Respiratory: Severely rhonchorous. Severe tachypnea. Cardiovascular: Irregularly irregular. Tachycardic. No significant edema. Gastrointestinal: Normal bowel sounds, soft, nontender and nondistended. Musculoskeletal: No obvious deformities seen. Skin: No rashes, warm dry and intact. Neurologic: No obvious focal neurological deficits seen. Psychiatric: Altered mental status. Anxious appearing. Results & Data Results & Data ([facility]) Vital Signs (Past 12 Hours) Vital Signs Temp Pulse Pulse Resp BP BP Pulse Ox 06/12/21 13:25 100.0 F H 06/12/21 13:20 119 H 22 94 06/12/21 13:15 119 H 22 93 06/12/21 13:10 120 H 22 90 06/12/21 13:05 127 H 27 H 92 06/12/21 13:00 126 H 27 H 91 06/12/21 12:55 128 H 14 92 06/12/21 12:50 130 H 17 89 L 06/12/21 12:45 127 H 16 86 L 06/12/21 12:40 123 H 23 83 L 06/12/21 12:35 131 H 23 84 L 06/12/21 12:30 132 H 40 H 88 L 06/12/21 12:25 153 H 45 H 115/75 92 06/12/21 12:21 162 H 45 H 70 L 06/12/21 11:19 77 16 87 L 06/12/21 07:55 97.9 F 99 H 14 136/66 94 Vital signs, labs and imaging personally reviewed Coding Level of Care Code Critical Care 1st 30-74 mins Diagnoses Sepsis with acute respiratory failure and septic shock A41.9; R65.21; J96.00 ARDS (adult respiratory distress syndrome) J80 Pancreatitis K85.00 Acute pancreatitis complication: unspecified Chronicity: acute Pancreatitis type: idiopathic Time Spent (min) 86 (1) Pancreatitis Acute pancreatitis complication: unspecified Chronicity: acute Pancreatitis type: idiopathic Qualified Code(s): K85.00 - Idiopathic acute pancreatitis without necrosis or infection
[2021-06-12] MEDS ORDERED: AMIODARONE / D5W 360 MG/200 ML BAG IV ONE (14:31)
[2021-06-12] MEDS ORDERED: DEXMEDETOMIDINE HCL 200 MCG in SODIUM CHLORIDE 0.9% 48 ML IV SCH (14:45)
[2021-06-12] MEDS ORDERED: fentaNYL DRIP 1,250 MCG/250 ML BAG IV SCH ×2 (14:45)
[2021-06-12 14:47] LABS: iSTAT Allen Test Pass; iSTAT Art Bld Gas pCO2 Correct 64 mmHg (35-46); iSTAT Art Bld Gas pH Corrected 7.131 (7.35-7.45); iSTAT Arterial Blood Gas HCO3 21 meg/L (19-24); iSTAT Arterial Blood Gas pCO2 59 mmHg (35-46); iSTAT Arterial Blood Gas pH 7.16 (7.35-7.45); iSTAT Arterial Blood Gas pO2 72 mmHg (80-95); iSTAT Arterial Blood Gas pO2 C 82; iSTAT Carbon Dioxide 22 mmol/L (24-31); iSTAT FiO2 60 %; iSTAT Hematocrit 50 % (37-47); iSTAT Potassium 4.3 mmol/L (3.3-5.0); iSTAT Site Art Line; iSTAT Sodium 141 mmol/L (135-144)
--- NOTE | 2021-06-12 15:01 | XRay Report ---
XR chest 1V portable HISTORY: Endotracheal and orogastric tube placement. COMPARISON: Chest 06/11/2021. FINDINGS: The endotracheal tube is located within the right mainstem bronchus. This should be pulled back by approximately 3 to 4 cm. Nasogastric tube terminates below the diaphragm. The tip is not incl uded on this study. No pneumothorax. Perihilar and basilar airspace opacities have progressed. The hi atus hernia is less pronounced. Calcified granuloma again noted within the left lower lobe. IMPRESSION: 1. Endotracheal tube is located within the right mainstem bronchus. This should be pulled back by oxana roximately 3 to 4 cm. 2. Perihilar and basilar airspace opacities have progressed. This is concerning for worsening pneumon ia versus pulmonary edema. 3. These findings were discussed with Dr. Hsieh at 3:01 PM on 06/12/2021. ACT 112: Negative or not required by law. Electronically signed by: Thomas Charles M.D. 06/12/2021 3:00 PM
--- NOTE | 2021-06-12 15:03 | XCELERA ---
[id number]
[2021-06-12] MEDS: DEXMEDETOMIDINE HCL 200 MCG in SODIUM CHLORIDE 0.9% 48 ML IV SCH ×2 (15:09→17:53)
[2021-06-12] MEDS: metroNIDAZOLE 500 MG/100 ML BAG IV SCH ×2 (15:15→20:28)
[2021-06-12] MEDS: HYDROCORTISONE SOD 50 MG in SYRINGE 0 ML IV SCH ×2 (15:16→20:27)
[2021-06-12 15:26] LABS: Albumin Level 2.2 gm/dl (3.4-5.0); BUN Creatinine Ratio 29.1 (10-20); Calcium 8.9 mg/dl (8.5-10.1); Creatinine Clr Calc Pharmacy 25.7 ml/min; Est GFR (African American) 35.2 ml/min; Est GFR (Non-African American) 30.4 ml/min; Potassium 4.3 mmol/L (3.5-5.1)
[2021-06-12 15:31] LABS: Albumin Globulin Ratio 0.6 (0.9-2); Bilirubin,Total 0.9 mg/dl (0.2-1); Globulin 3.5 gm/dl (2.5-4.0); Total Protein 5.7 gm/dl (6.4-8.2); Troponin I 0.038 ng/ml (0-0.045)
[2021-06-12] MEDS ORDERED: ALBUT/IPRATROP 3MG/0.5MG NEB 3 ML VIAL NEB PRN (16:03)
[2021-06-12] MEDS: ALBUT/IPRATROP 3MG/0.5MG NEB 3 ML VIAL NEB SCH (16:04)
[2021-06-12] MEDS ORDERED: ACETAMINOPHEN 325 MG TAB PO ONE (16:52)
[2021-06-12 17:38] LABS: Appearance Urine Cloudy (Clear); Bacteria Urine Automated Negative (Negative); Bilirubin Urine Negative (Negative); Blood Urine 2+ (Negative); Color Urine Dark Yellow; Epithelial Cell Urine Auto >30 /lpf (0-5); Glucose Urine UA Negative (Negative); Ketones Urine Trace (Negative); Leukocyte Esterase Urine Negative (Negative); Nitrite Urine Negative (Negative); Protein Urine 2+ (Negative); Specific Gravity Urine 1.022 (1.000-1.030); Urobilinogen Urine Negative (Negative)
[2021-06-12 17:51] LABS: Calcium Oxalate Crystals Urine Present (None Prsent)
[2021-06-12] MEDS: AMIODARONE / D5W 360 MG/200 ML BAG IV SCH (20:27)
[2021-06-12] MEDS ORDERED: VANCOMYCIN HCL 1,000 MG in SODIUM CHLORIDE 0.9% 250 ML IV SCH (22:00)
[2021-06-12] MEDS ORDERED: VANCOMYCIN HCL 1,250 MG in SODIUM CHLORIDE 0.9% 250 ML IV SCH (22:00)
[2021-06-13] MEDS: DEXMEDETOMIDINE HCL 200 MCG in SODIUM CHLORIDE 0.9% 48 ML IV SCH ×7 (00:56→22:54)
[2021-06-13] MEDS: CEFEPIME 2,000 MG in SYRINGE 0 ML IV SCH ×2 (01:21→13:31)
[2021-06-13] MEDS: HYDROCORTISONE SOD 50 MG in SYRINGE 0 ML IV SCH ×3 (02:56→16:23)
[2021-06-13] MEDS: PHENYLEPHRINE HCL 20 MG in DEXTROSE 5% 500 ML IV SCH ×3 (02:56→18:19)
[2021-06-13 03:09] LABS: Basophils # (auto) 0.01 K/uL (0-0.2); Basophils % (auto) 0.1 %; Hematocrit (blood only) 44.1 % (37-47); Hemoglobin 14.5 g/dL (12.0-16.0); Immature Granulocytes # (auto) 0.04 K/uL (0.00-0.02); Immature Granulocytes % (auto) 0.2 %; Lymphocytes # (auto) 1.15 K/uL (1.2-3.4); Mean Corpuscular Hemoglobin 32.7 pg (25-34); Mean Corpuscular Hgb Conc 32.9 g/dL (32-36); Mean Corpuscular Volume 99.3 fL (80-100); Mean Platelet Volume 9.8 fL (7.4-10.4); Monocytes # (auto) 1.27 K/uL (0.11-0.59); Monocytes % (auto) 7.8 %; Neutrophils # (auto) 13.88 K/uL (1.4-6.5); Neutrophils % (auto) 84.9 %; Platelet Count 261 K/uL (130-400); RDW Coefficient of Variation 13.7 % (11.5-14.5); RDW Standard Deviation 49.5 fL (36.4-46.3); Red Blood Count 4.44 M/uL (4.2-5.4); White Blood Count 16.35 K/uL (4.8-10.8)
[2021-06-13 03:29] LABS: Albumin Level 1.9 gm/dl (3.4-5.0); Calcium 8.7 mg/dl (8.5-10.1); Est GFR (African American) 32.5 ml/min; Magnesium 1.9 mg/dl (1.8-2.4); Potassium 4.6 mmol/L (3.5-5.1)
[2021-06-13 03:32] LABS: Albumin Globulin Ratio 0.6 (0.9-2); Bilirubin,Total 0.5 mg/dl (0.2-1); Globulin 3.4 gm/dl (2.5-4.0); Phosphorus 2.1 mg/dl (2.5-4.9); Total Protein 5.3 gm/dl (6.4-8.2)
[2021-06-13 05:13] LABS: iSTAT Art Bld Gas pCO2 Correct 32 mmHg (35-46); iSTAT Art Bld Gas pH Corrected 7.379 (7.35-7.45); iSTAT Arterial Blood Gas HCO3 18 meg/L (19-24); iSTAT Arterial Blood Gas pCO2 30 mmHg (35-46); iSTAT Arterial Blood Gas pO2 63 mmHg (80-95); iSTAT Arterial Blood Gas pO2 C 70; iSTAT Carbon Dioxide 19 mmol/L (24-31); iSTAT FiO2 40 %; iSTAT Hematocrit 41 % (37-47); iSTAT Hemoglobin 13.9 g/dl (12.0-16.0); iSTAT Potassium 4.5 mmol/L (3.3-5.0); iSTAT Site Art Line; iSTAT Sodium 135 mmol/L (135-144)
[2021-06-13] MEDS: metroNIDAZOLE 500 MG/100 ML BAG IV SCH ×3 (05:17→19:33)
[2021-06-13] MEDS: VASOPRESSION #-# Do NOT Titrate #-# Option IV SCH ×2 (05:20→09:14)
[2021-06-13] MEDS: ENOXAPARIN INJ 40 MG/0.4 ML SYR SQ SCH (06:17)
--- NOTE | 2021-06-13 07:49 | Electrocardiogram Report ---
Test Reason : Blood Pressure : / mmHG Vent. Rate : 128 BPM Atrial Rate : 128 BPM P-R Int : 160 ms QRS Dur : 100 ms QT Int : 292 ms P-R-T Axes : 063 070 070 degrees QTc Int : 426 ms Poor data quality, interpretation may be adversely affected Sinus tachycardia Low voltage QRS Nonspecific ST abnormality Abnormal ECG When compared with ECG of 10-JUN-2021 18:28, Vent. rate has increased BY 63 BPM Confirmed by Cabrera Reno ([id number]) on 06/13/2021 7:48:47 AM Referred By: REFERRED SELF Confirmed By:Aubrey Reno
--- NOTE | 2021-06-13 07:58 | Ultrasound Report ---
US venous doppler LE BI CLINICAL HISTORY: DVT? COMPARISON: None available at the time of this dictation. TECHNIQUE: Bilateral lower extremity real-time compression venous ultrasound with Color Doppler imagi ng. Utilizing real-time ultrasonic imaging multiple real time high-resolution ultrasonic images with comp ression and noncompression maneuvers of the deep venous system in addition to color doppler imaging w ere performed from the common femoral vein through the proximal calf veins. FINDINGS: Currently there is normal compressibility of the deep venous system from the common femoral vein thro ugh the proximal calf veins. No current evidence of acute thrombosis is identified. Impression: No evidence of deep venous thrombus. ACT 112: Negative or not required by law. Electronically signed by: Patrick Geiger M.D. 06/13/2021 7:56 AM
--- NOTE | 2021-06-13 07:59 | Ultrasound Report ---
US gallbladder CLINICAL HISTORY: sepsis TECHNIQUE: Multiple real-time sonographic images of the right upper quadrant were obtained. Comparison: Comparison is made to right upper quadrant ultrasound 07/29/2018 FINDINGS: The liver is diffusely homogenous with normal contour and echogenicity. No focal mass lesions are se en. No intrahepatic ductal dilatation is seen. Low level internal echoes are identified layering dependently within the gallbladder, which is consistent with gallbladder sludge. The gallbladder wall is not thickened. There is no pericholecystic fluid present. The common duct measures 0.4 cm in diam eter at the level of the hepatic artery. A sonographic Wilburn's sign was not elicited by the sonogra pher. The visualized portions of the pancreas appear normal. The right kidney shows normal echogenicity, cortical thickness and renal contour. There is partial vi sualization of parapelvic cysts. No ascites or free fluid is seen in Judd's pouch. IMPRESSION: Unremarkable right upper quadrant ultrasound. ACT 112: Negative or not required by law. Electronically signed by: Patrick Geiger M.D. 06/13/2021 7:58 AM
[2021-06-13] MEDS: AMIODARONE / D5W 360 MG/200 ML BAG IV SCH ×2 (08:30→19:32)
--- NOTE | 2021-06-13 09:04 | Critical Care Progress Note ---
Date of Service June 13, 2021 Assessment & Plan (1) Sepsis with acute respiratory failure and septic shock: (2) ARDS (adult respiratory distress syndrome): (3) Pancreatitis: (4) Hypothyroid: Plan: 81-year-old female with a history of recurrent pancreatitis presenting to the hospital with septic shock and ARDS. She was found to have pancreatitis. Neurologic: Tolerating sedation vacation very well. If unable to extubate, will restart low-dose fentanyl. Pulmonary: Likely aspiration pneumonitis/pneumonia and possible ARDS in the context of acute vomiting and pancreatitis. ABG substantially improved this morning from acid-base perspective. PO2 63 on a PEEP of 8 FiO2 40. Cardiovascular: Profoundly hypotensive on presentation to the ICU. Levophed has been weaned down. Continue vasopressin. Maintain mean arterial pressure above 65 mmHg. We will taper stress dose steroids. Currently on amiodarone due to atrial fibrillation with rapid ventricular response. We will continue infusion today. Hold if worsening bradycardia. Echo 06/12/2021 with severe LVH. Aortic valve sclerosis of moderate degree. RVSP of 50 to 60 mmHg. We will give IV Lasix as needed. Gastrointestinal: Gastroenterology consulted for pancreatitis. Triglycerides ordered. 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 She has a history of a large hiatal hernia. Will initiate PPI. OG tube to be placed and draining significant problems substance strict n.p.o. MRCP 06/10/2021 with findings of acute mild pancreatitis. No biliary ductal dilation or biliary filling defects. Large hiatal hernia. Lipase continues to improve. Renal: CRUZ in the setting of septic shock. Mild CRUZ seen likely secondary to hypotension and ATN. Continue to monitor urine output. Infectious disease: Blood cultures, urinalysis and sputum culture results pending. Procalcitonin ordered. Leukocytosis trending down. Likely with aspiration pneumonitis/pneumonia. Will monitor for necrotizing pancreatitis. Continue cefepime and Flagyl. There is a white pustular area noted in her labial fold per nursing. No obvious drainage seen. We will continue to monitor. Appropriately trended up to 60.98 from 13.7. We will continue to monitor procalcitonin. Hematologic: No DVT seen on ultrasound evidence. Endocrine: TSH within normal limits from March. We will give IV levothyroxine 50 g given n.p.o. status. She is normally on 88 mcg p.o. of levothyroxine. Tapering hydrocortisone from 80 mg every 6 hours to 50 mg 3 times daily. Can taper further tomorrow to 50 mg twice daily. Lines and tubes: Right femoral triple-lumen, left radial arterial line, Cain catheter and endotracheal tube placed 06/12/2021 VTE prophylaxis: SCDs. Heparin 5000 units, 3 times daily. CODE STATUS: Full code Family at bedside: Spoke to the yesterday and updated her regarding her condition. He insisted that his be a full code and this is in line with her wishes. Disposition: Remain in the ICU. Discussed at length with the patient's hospitalist team, bedside nursing and respiratory therapy. Prognosis guarded. I have personally spent 36 minutes of critical care time in the direct management of this patient. This is a life/limb threatening event. This includes time spent evaluating patient, direct bedside care, chart review, placing orders, interpretation of diagnostic studies, discussion with consultants, patient, and family members, as well as other required patient management activities. This time is exclusive of all separately billable procedures, and teaching time and separate from and in addition to any other critical care service time. Thank you for allowing us to participate in the care of this patient. Admission and Anticipated Discharge Date Admission Date: June 10, 2021 Subjective Patient weaned off sedation this morning. She continues to need low doses of Levophed and vasopressin. Her oxygen demands have improved substantially and she is currently on 40% FiO2 and a PEEP of 5. She is tolerating a spontaneous breathing trial well. Review of Systems Review of Systems: All systems reviewed & are unremarkable except as noted in HPI & below Physical Exam Physical Exam: Constitutional: Elderly appearing female in mild distress. Eyes: Pupils are equal round and reactive to light. Conjunctivae are normal. Anicteric sclera. Ears nose, mouth and throat: Endotracheal tube in place. Neck: Trachea is midline. Visual inspection is normal. Respiratory: Severely rhonchorous. Cardiovascular: Normal sinus rhythm. No significant edema in the legs. Gastrointestinal: Mild tenderness to palpation in the epigastrium. Normoactive bowel sounds. Musculoskeletal: No obvious deformities seen. Skin: No rashes, warm dry and intact. Neurologic: No obvious focal neurological deficits seen. Psychiatric: Following commands. Results & Data Results & Data ([facility]) Vital Signs (Past 12 Hours) Vital Signs Temp Pulse Resp Pulse Ox 06/13/21 04:55 54 L 29 H 93 06/13/21 01:33 53 L 28 H 94 06/13/21 01:00 102.0 F H 53 L 28 H 95 06/13/21 00:30 101.8 F H 53 L 28 H 94 06/13/21 00:00 101.7 F H 54 L 28 H 93 06/12/21 23:30 101.8 F H 55 L 28 H 93 06/12/21 23:00 102.2 F H 56 L 28 H 92 06/12/21 22:38 56 L 28 H 96 06/12/21 22:30 102.6 F H 55 L 28 H 96 06/12/21 22:00 102.7 F H 56 L 28 H 96 06/12/21 21:30 102.9 F H 57 L 28 H 96 06/12/21 21:00 103.1 F H 58 L 28 H 96 vital signs, labs and imaging personally reviewed. Chest x-ray with increased bibasilar markings. Coding Level of Care Code Critical Care 1st 30-74 mins Diagnoses Sepsis with acute respiratory failure and septic shock A41.9; R65.21; J96.00 ARDS (adult respiratory distress syndrome) J80 Pancreatitis K85.00 Acute pancreatitis complication: unspecified Chronicity: acute Pancreatitis type: idiopathic Hypothyroid E03.9 Time Spent (min) 36 (1) Pancreatitis Acute pancreatitis complication: unspecified Chronicity: acute Pancreatitis type: idiopathic Qualified Code(s): K85.00 - Idiopathic acute pancreatitis without necrosis or infection
--- NOTE | 2021-06-13 09:11 | XRay Report ---
XR chest 1V portable HISTORY: Respiratory failure. Follow-up. COMPARISON: Chest 06/12/2021. FINDINGS: Endotracheal tube terminates 1.7 cm from the nat. Nasogastric tube terminates below the diaphragm. No pneumothorax. Perihilar and bibasilar airspace opacities persist. The left lower lobe c alcified granuloma. The heart remains mildly enlarged. Suspect trace bilateral pleural effusions. IMPRESSION: 1. Satisfactory support line placement. 2. No change in the perihilar and basilar airspace opacities. ACT 112: Negative or not required by law. Electronically signed by: Thomas Charles M.D. 06/13/2021 9:10 AM
[2021-06-13] MEDS ORDERED: HALOPERIDOL LACTATE 5 MG/ML 1 ML VIAL ONE (09:50)
[2021-06-13] MEDS: LEVOTHYROXINE SODIUM 50 MCG in SYRINGE 0 ML IV SCH (10:40)
[2021-06-13] MEDS ORDERED: HALOPERIDOL LACTATE 5 MG/ML 1 ML VIAL IV STA (11:01)
--- NOTE | 2021-06-13 12:19 | Psychiatric Consultation ---
Date of Consultation June 13, 2021 Impression / Recommendations Impression 81 yo woman with no psychiatric history admitted for pancreatitis with further medical complications including ARDS and sepsis requiring ICU care. Psychiatry was consulted for delirium management and decision making capacity regarding ability to refuse life saving care. Diagnostically consistent with acute delirium/encephalopathy given her age, acute medical decompensation and requiring medications which contribute to delirium. Agree with haldol for management of delirium and acute agitation, ativan could be used if necessary to keep her from removing lines/life saving interventions, though this will worsen delirium so should only be used if haldol and other sedating medications are not sufficient. In terms of decision making capacity-it is specific to the decision at a set point in time. Currently the ability to assess her DCM is limited due to her sedation. However, should she become acutely agitated again in the context of delirium, her DCM would be severely limited due to the acute delirium which impacts her ability to understand where she is, what treatment is being offered, what consequences would happen if she refused treatment, alternative treatment options, and the ability to rationally weigh the risks and benefits of her decision-all of which are necessary components of being able to have decision making capacity. Given that in her case she is acutely delirious and her of 63 years confirms that she has consistently voiced her desire to receive any and all necessary medical care it is extremely reasonable and appropriate to continue to treat her with all necessary medical interventions as her statements of wanting to and agitation are driven by delirium and inconsistent with the care she would want based on best substituted judgement from her and b ased on the fact that she has altered mental status and does not have DMC regarding her medical treatment especially since the consequences of refusing such treatment could be . She is not deemed to be at acute risk of harm to self given that statements of SI were made in the context of being acutely delirious. Best way to address this is by treating modifiable risk factor of delirium through ongoing treatment of her medical conditions which are driving the delirium. (1) Encephalopathy acute: Delirium management: -haldol 2-5 mg IV q4H prn, not to exceed 10 mg in 24 hours; ensure ongoing monitoring of QTc and discontinue if QTc > 460 ms -could use ativan if absolutely necessary for acute agitation but caution that it will worsen delirium. Rec: ativan 2 mg IV q2h prn, not to exceed 12 mg in 24 hours Decision Making Capacity: -she is currently delirious and does not have DMC to refuse life saving medical treatment; however DMC is assessed for a specific point in time and must be reassessed should delirium resolve Psych History Identifying Data 81 yo woman with no psychiatric history admitted for pancreatitis with further medical complications including ARDS and sepsis requiring ICU care. Psychiatry was consulted for delirium management and decision making capacity regarding ability to refuse life saving care. Chief Complaint patient sleeping History of Present Illness Patient was sedated on my assessment so history is from chart review and interview with her of 64 years, Sloan. Earlier this morning patient self-extubated and began making statements of wanting to , a belief that she was in hell, thinking that her ICU physician was the devil and pulled out of her IVs and arterial line and was refusing to allow placement of an oxygen mask. She received haldol 5mg IV and precedex and then allowed care to reattach her lines and place an oxygen mask. Her Sloan, was not at the hospital this morning but reports that over the last few days she has demonstrated periods of confusion including yesterday not knowing where she was and believing that she was going to be late for some type of appointment. Sloan notes that Yesy has no psychiatric history and has never been suicidal or depressed before. 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 He reports that her wish has always been to be receive any medical care necessary and is full code status. He reports that per their discussions she has always made clear her intentions for full medical care should she become ill and that she would not want to or for medical care to be limited in scope should she begin to decompensate. Past Psychiatric History Previous Psych History: none Allergies Allergy/AdvReac Type Severity Reaction Status Date / Time bee venom protein (honey bee) Allergy Severe HAS AN Verified 06/10/21 19:10 EPIPEN FOR REACTIONS latex Allergy Intermediate HIVES Verified 06/10/21 19:10 Iodinated Contrast Media Allergy Mild RASH Verified 06/10/21 19:10 Home Medications Medication Instructions Recorded Confirmed Type cyanocobalamin (vitamin B-12) 1,000 mcg PO QAM tab 02/27/19 06/10/21 History 1,000 mcg tablet,extended release cyclosporine 0.05 % eye drops in a 1 drp OPB Q12H 03/26/19 06/10/21 History dropperette (Restasis) epinephrine 0.3 mg/0.3 mL 0.3 mg IM DIRECTED PRN 03/26/19 06/10/21 History injection, auto-injector (EpiPen) multivitamin with minerals 1 tab PO QAM 03/26/19 06/10/21 History metronidazole 0.75 % topical cream 1 appln TOP DAILY PRN 12/19/19 06/10/21 History ascorbate calcium (vitamin C) 500 500 mg PO DAILY #30 tab 12/30/19 06/10/21 Rx mg tablet cholecalciferol (vitamin D3) 125 125 mcg PO DAILY #30 cap 12/30/19 06/10/21 Rx mcg (5,000 unit) capsule coenzyme Q10 200 mg capsule 200 mg PO DAILY #30 cap 12/30/19 06/10/21 Rx cranberry fruit concentrate 250 mg 250 mg PO DAILY #90 tab 12/30/19 06/10/21 Rx chewable tablet (Azo Cranberry) echinacea 400 mg capsule 400 mg PO DAILY #90 cap 12/30/19 06/10/21 Rx krill oil 500 mg capsule 500 mg PO DAILY #30 cap 12/30/19 06/10/21 Rx lutein 25 mg-zeaxanthin 5 mg 1 cap PO DAILY #30 cap 12/30/19 06/10/21 Rx capsule magnesium 250 mg tablet 325 mg PO DAILY tab 06/09/20 06/10/21 History levothyroxine 88 mcg tablet 88 mcg PO QAM #90 tab 09/01/20 06/10/21 Rx (Synthroid) melatonin 5 mg capsule 10 mg PO HS #30 cap 04/08/21 06/10/21 Rx Personal History Beliefs That Will Affect Care: None Patient History Medical History Acute pancreatitis ARDS (adult respiratory distress syndrome) Arthritis Hiatal hernia Hypertension Hypothyroid Hypothyroidism Lyme disease Recurrent pancreatitis Surgical History H/O cataract extraction S/P bunionectomy right foot X 2 S/P tonsillectomy and adenoidectomy age 14 years Family History Mother Emphysema lung Father Myocardial infarction Hypertension Denies family history of Colon cancer Ovarian cancer Prostate cancer Autoimmune disease Pancreatitis Breast cancer Social History Smoking Status: Never smoker Second Hand Exposure: No; Hx Alcohol Use: No Hx Substance Use: No Preferred Language: Indonesian Communication Ability: Effective Pricing Consultant Required: No Beliefs That Will Affect Care: None marital status: Current Living Situation: Spouse Current Living Situation Comment: lives with in [place] 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 Other Information That Helps Us Care for You: No other: 4 kids Feels Safe at Home: Yes Safety Concerns: Feels Safe At This Time Childhood Exposure to Second-Hand Smoke: Yes Dental Care, Regularly: Yes Physical Activity Frequency: Does not Exercise Seatbelt Use: always Sunscreen Use: No Assistive Devices: Glasses and Oxygen - Continuous Physical Exam Psychiatric: Orientation: + not alert Apperance: appropriately dressed and appeared stated age Eye Contact: + poor eye contact Motor Behavior: no abnormal motor movements Vital Signs (Past 24 Hours): Last Vital Signs Temp 37.6 C H 06/13/21 10:45 Pulse 64 06/13/21 10:45 Resp 22 06/13/21 10:45 BP 122/63 06/13/21 10:33 Pulse Ox 93 06/13/21 10:45 Review of Systems Unobtainable due to reduced consciousness Results & Data (PSY) Medications Administered Cefepime HCl 2,000 mg/ Syringe 20 mls @ 5 mls/min IV Q12H [facility]; Protocol Stop: 06/19/21 00:59 Last Admin: 06/13/21 01:21 Dose: 5 mls/min Documented by: [id number] Admin: 06/12/21 15:15 Dose: 5 mls/min Documented by: [id number] Admin: 06/12/21 01:32 Dose: 5 mls/min Documented by: [id number] Vasopressin 20 units/ Sodium (Chloride) 101 mls @ 12.12 mls/hr IV .Q8H20M [facility] Stop: 07/12/21 12:59 Last Admin: 06/13/21 09:14 Dose: 0.04 unit/min, 12.1 mls/hr Documented by: [id number] Cosigned by: [id number] Infusion: 06/13/21 09:14 Dose: 0.04 unit/min, 12.1 mls/hr Documented by: [id number] Cosigned by: [id number] Infusion: 06/13/21 07:01 Dose: 0.04 unit/min, 12.1 mls/hr Documented by: [id number] Cosigned by: [id number] Admin: 06/13/21 05:20 Dose: 0.04 unit/min, 12.1 mls/hr Documented by: [id number] Cosigned by: [id number] Infusion: 06/13/21 04:49 Dose: 0.04 unit/min, 12.1 mls/hr Documented by: [id number] Cosigned by: [id number] Admin: 06/12/21 20:28 Dose: 0.04 unit/min, 12.1 mls/hr Documented by: [id number] Cosigned by: [id number] Infusion: 06/12/21 20:28 Dose: 0.04 unit/min, 12.1 mls/hr Documented by: [id number] Cosigned by: [id number] Infusion: 06/12/21 19:09 Dose: 0.04 unit/min, 12.1 mls/hr Documented by: [id number] Cosigned by: [id number] Admin: 06/12/21 12:45 Dose: 0.04 unit/min, 12.1 mls/hr Documented by: [id number] Cosigned by: [id number] Metronidazole (Flagyl) 500 mg in 100 mls @ 100 mls/hr IV Q8H [facility] Stop: 06/22/21 13:29 Last Infusion: 06/13/21 06:17 Dose: 0 mls/hr Documented by: [id number] Admin: 06/13/21 05:17 Dose: 100 mls/hr Documented by: [id number] Infusion: 06/12/21 21:28 Dose: 0 mls/hr Documented by: [id number] Admin: 06/12/21 20:28 Dose: 100 mls/hr Documented by: [id number] Infusion: 06/12/21 16:18 Dose: 0 mls/hr Documented by: [id number] Admin: 06/12/21 15:15 Dose: 100 mls/hr Documented by: [id number] Phenylephrine HCl 20 mg/ (Dextrose) 502 mls @ 23.795 mls/hr IV .Q21H6M [facility]; Protocol Stop: 07/12/21 13:29 Last Admin: 06/13/21 10:41 Dose: Not Given Documented by: [id number] Titration: 06/13/21 07:01 Dose: 0 mcg/kg/min, 0 mls/hr Documented by: [id number] Cosigned by: [id number] Admin: 06/13/21 02:56 Dose: Not Given Documented by: [id number] Titration: 06/13/21 01:01 Dose: 0.2 mcg/kg/min, 23.8 mls/hr Documented by: [id number] Titration: 06/12/21 23:29 Dose: 0.4 mcg/kg/min, 47.6 mls/hr Documented by: [id number] Titration: 06/12/21 22:16 Dose: 0.6 mcg/kg/min, 71.4 mls/hr Documented by: [id number] Cosigned by: [id number] Admin: 06/12/21 20:28 Dose: 0.8 mcg/kg/min, 95.2 mls/hr Documented by: [id number] Cosigned by: [id number] Titration: 06/12/21 19:17 Dose: 0.8 mcg/kg/min, 95.2 mls/hr Documented by: [id number] Cosigned by: [id number] Titration: 06/12/21 19:09 Dose: 0.8 mcg/kg/min, 95.2 mls/hr Documented by: [id number] Cosigned by: [id number] Titration: 06/12/21 16:19 Dose: 0.8 mcg/kg/min, 95.2 mls/hr Documented by: [id number] Titration: 06/12/21 16:00 Dose: 0.6 mcg/kg/min, 71.4 mls/hr Documented by: [id number] Titration: 06/12/21 15:31 Dose: 0.4 mcg/kg/min, 47.6 mls/hr Documented by: [id number] Titration: 06/12/21 15:11 Dose: 0.4 mcg/kg/min, 47.6 mls/hr Documented by: [id number] Admin: 06/12/21 12:30 Dose: 0.5 mcg/kg/min, 59.5 mls/hr Documented by: [id number] Cosigned by: [id number] Norepinephrine Bitartrate (Levophed/D5w) 8 mg in 508 mls @ 15.05 mls/hr IV .Q24H [facility]; Protocol Stop: 07/12/21 13:29 Last Titration: 06/13/21 07:01 Dose: 0.04 mcg/kg/min, 12 mls/hr Documented by: [id number] Cosigned by: [id number] Titration: 06/12/21 19:09 Dose: 0.05 mcg/kg/min, 15.1 mls/hr Documented by: [id number] Cosigned by: [id number] Titration: 06/12/21 16:20 Dose: 0.05 mcg/kg/min, 15.1 mls/hr Documented by: [id number] Titration: 06/12/21 15:33 Dose: 0 mcg/kg/min, 0 mls/hr Documented by: [id number] Admin: 06/12/21 12:30 Dose: 0.05 mcg/kg/min, 15.1 mls/hr Documented by: [id number] Cosigned by: [id number] Dexmedetomidine HCl 200 mcg/ (Sodium Chloride) 50 mls @ 7.9 mls/hr IV .Q6H20M [facility]; Protocol Stop: 06/16/21 14:44 Last Titration: 06/13/21 10:00 Dose: 0.4 mcg/kg/hr, 7.9 mls/hr Documented by: [id number] Titration: 06/13/21 09:00 Dose: 0 mcg/kg/hr, 0 mls/hr Documented by: [id number] Admin: 06/13/21 08:31 Dose: 0.4 mcg/kg/hr, 7.9 mls/hr Documented by: [id number] Cosigned by: [id number] Titration: 06/13/21 07:16 Dose: 0.4 mcg/kg/hr, 7.9 mls/hr Documented by: [id number] Cosigned by: [id number] Titration: 06/13/21 07:01 Dose: 0.4 mcg/kg/hr, 7.9 mls/hr Documented by: [id number] Cosigned by: [id number] Admin: 06/13/21 00:56 Dose: 0.4 mcg/kg/hr, 7.9 mls/hr Documented by: [id number] Cosigned by: [id number] Titration: 06/13/21 00:13 Dose: 0.4 mcg/kg/hr, 7.9 mls/hr Documented by: [id number] Cosigned by: [id number] Titration: 06/12/21 19:09 Dose: 0.4 mcg/kg/hr, 7.9 mls/hr Documented by: [id number] Cosigned by: [id number] Admin: 06/12/21 17:53 Dose: 0.4 mcg/kg/hr, 7.9 mls/hr Documented by: [id number] Cosigned by: [id number] Titration: 06/12/21 17:53 Dose: 0.4 mcg/kg/hr, 7.9 mls/hr Documented by: [id number] Cosigned by: [id number] Admin: 06/12/21 15:09 Dose: 0.4 mcg/kg/hr, 7.9 mls/hr Documented by: [id number] Cosigned by: [id number] Fentanyl Citrate (Fentanyl Drip) 1,250 mcg in 250 mls @ 0 mls/hr IV .Q0M [facility]; Protocol Stop: 06/26/21 14:44 Last Titration: 06/13/21 08:14 Dose: 0 mcg/hr, 0 mls/hr Documented by: [id number] Cosigned by: [id number] Titration: 06/13/21 07:01 Dose: 100 mcg/hr, 20 mls/hr Documented by: [id number] Cosigned by: [id number] Titration: 06/12/21 19:09 Dose: 25 mcg/hr, 5 mls/hr Documented by: [id number] Cosigned by: [id number] Admin: 06/12/21 15:09 Dose: 25 mcg/hr, 5 mls/hr Documented by: [id number] Cosigned by: [id number] Amiodarone HCl/Dextrose (Nexterone / D5w) 360 mg in 200 mls @ 16.667 mls/hr IV .Q12H [facility] Stop: 07/12/21 20:29 Last Admin: 06/13/21 08:30 Dose: 0.5 mg/min, 16.7 mls/hr Documented by: [id number] Cosigned by: [id number] Infusion: 06/13/21 08:26 Dose: 0.5 mg/min, 16.7 mls/hr Documented by: [id number] Cosigned by: [id number] Infusion: 06/13/21 07:01 Dose: 0.5 mg/min, 16.7 mls/hr Documented by: [id number] Cosigned by: [id number] Admin: 06/12/21 20:27 Dose: 0.5 mg/min, 16.7 mls/hr Documented by: [id number] Cosigned by: [id number] Vancomycin HCl 1,000 mg/ (Sodium Chloride) 270 mls @ 200 mls/hr IV Q24H [facility] Stop: 06/19/21 21:59 Last Infusion: 06/12/21 23:37 Dose: 0 mls/hr Documented by: [id number] Admin: 06/12/21 22:16 Dose: 200 mls/hr Documented by: [id number] Levothyroxine Sodium 50 mcg/ (Syringe) 2.5 mls @ 2 mls/min IV Q72H [facility]; Protocol Stop: 07/13/21 09:29 Last Admin: 06/13/21 10:40 Dose: 2 mls/min Documented by: [id number] Miscellaneous (Cyclosporine [Restasis]: Order Awaiting Action) 1 ea N/A QS [facility] Stop: 07/11/21 07:59 Last Admin: 06/13/21 08:30 Dose: Not Given Documented by: [id number] Admin: 06/13/21 00:28 Dose: Not Given Documented by: [id number] Admin: 06/12/21 07:33 Dose: Not Given Documented by: [id number] Admin: 06/12/21 07:33 Dose: Not Given Documented by: [id number] Admin: 06/12/21 00:03 Dose: Not Given Documented by: [id number] Admin: 06/11/21 16:37 Dose: Not Given Documented by: [id number] Admin: 06/11/21 08:08 Dose: Not Given Documented by: [id number] Ondansetron HCl (Ondansetron Inj 2 Mg/Ml 2 Ml Vial) 4 mg IV Q6H PRN PRN Reason: Nausea Stop: 07/10/21 23:39 Last Admin: 06/12/21 12:30 Dose: 4 mg Documented by: [id number] Admin: 06/11/21 00:21 Dose: 4 mg Documented by: [id number] Coding Level of Care Code 70597 Inpt Consult Level 2 Diagnoses Encephalopathy acute G93.40 Time Spent (min) 30
[2021-06-13] MEDS: HYDROmorphone INJ 1 MG/ML SYRINGE IV PRN ×2 (12:30→19:32)
[2021-06-13] MEDS: PANTOprazole 40 MG in SYRINGE 0 ML IV SCH (13:24)
[2021-06-13] MEDS ORDERED: FUROSEMIDE INJ 20 MG/2 ML VIAL IV ONE (14:06)
[2021-06-13] MEDS: NOREPINEPHRINE/D5W 8 MG/508 ML BAG IV SCH (14:32)
--- NOTE | 2021-06-13 14:37 | Hospitalist Progress Note ---
Date of Service June 13, 2021 Assessment & Plan (1) Sepsis with acute respiratory failure and septic shock: Plan: 81 y/o WF with a PMHx of Hypothyroidism and recurrent pancreatitis admitted 06/10 with pancreatitis (Lipase 7778)-- recurrent issues without obvious cause - CT of A/P: pancreatitis without cyst/pseudocyst and ductal dilation - LFT's initially WNL - MRCP: pancreatitis without cyst/pseudocyst/abscess or ductal dilation - Triglyceride level WNL: 28 - Patient does not drink ETOH - autoimmune w/u done with elevated BRITTA but not IG levels -RUQ U/S showing sludge in the GB without acute cholecystitis - initially HD stable, afebrile and without leukocytosis - Received IVF (+4.7L) along with dilaudid for pain and zofran for nausea - seen by GI who initiated a clear liquid diet and plan was for EUS as an OP - Patient did not tolerate clear liquids-- had increased pain and nausea with multiple bouts of emesis - roll reclaimer on 06/12: was noted to be hypoxic (80% on RA) which responded to 3L O2 (94-95%) - CXR was done d/t hypoxemia showing a LLL infiltrate and PVC. IVF were stopped and she was started on Cefepime/Vanco given concern for aspiration PNA - Had persistent pain and bouts of emesis which subsequently led to further aspiration and respiratory failure. - 06/12: moved to ICU for acute hypoxic respiratory failure with HD instability (A.Fib with RVR and hypotension). - Leukocytosis not initially not upon admission. On 06/12-- up to 24K with left shift. downtrending--> currently 16K - patient has been febrile (tmax 103.1). ICU trending - procal 13.7 --> 60.98 - blood culture pending. - Requiring ventilatory support. SELF EXTUBATED ON 06/13. Stable on oxymask at present - still on pressor support. Currently requiring levofed. Prior to, was requiring levofed/vasopressin/phenelephrine). Currently HD stable and seems to be improving (ability to wean off of some pressor support) - was off of sedation this am and following simple commands. Back on low dose precedex as she self extubated and pulled out arterial line. - getting stress dose steroids - exact etiology of sepsis syndrome with acute respiratory failure and shock seems multifactorial: -pancreatitis with ? ARDS -clearly with aspiration PNA (on cefepime/flagyl/vanco) -volume overload (fluid balance +4.7 cumulative) with worsening flash pu lmonary edema likely related to her developed tachyarrhythmia which was likely driven by sepsis and hypoxemia -? component of acalculous cholecystits perhaps driving sepsis syndrome and the cause of her pancreatitis. cefepime/Flagyl on board. ICU to consider HIDA vs surgical consult. LFT's are normal. May warrant EUS sooner rather than later. (2) ARDS (adult respiratory distress syndrome): Plan: - see above (3) Acute pancreatitis: Plan: - see above - (4) Atrial fibrillation with RVR: Plan: - s/p cardioverson. on Amiodarone gtt - likely driving by sepsis and hypoxemia - troponin 0.038-- 0.081-- 0.057 (likely supply/demand ischemia from sepsis with shock) - echo done: hyperdynamic EF without RWMA (5) Encephalopathy acute: Plan: - acute delirium (likely driven by sepsis and meds could be contributing). This is definitely not how she was when I saw her 2 days ago - psych on board--> appreciate recommendations (6) Hypothyroidism: Plan: - on synthroid Plan: - daughter (Meggan) and (Sloan) updated - spoke with Dr. Hsieh Admission and Anticipated Discharge Date Admission Date: June 10, 2021 Subjective Patient seen on daily rounds today. When seen this morning, was still intubated but off of sedation and following simple commands. Was still on pressor support (only low dose levofed at the time). Was following simple commands. Patient did have a fever all night (103) but is otherwise HD stable Later notified by Dr. Hsieh who reported that patient self extubated and became confused/agitated. Was yelling that "she is in hell and that he is the devil". She was yelling to "just let her " Patient subsequently seem by psych with at the bedside. He reports that this is unusual for the patient and she would want everything done. Thought to be having delirium and treated with Haldol. Placed back on Precedex and Vasopressin. Review of Systems Review of Systems: All systems reviewed and are unremarkable except as noted in HPI and below Denies fevers, chills, headache, nasal congestion, sore throat, cough, chest pain, shortness of breath, palpitations, orthopnea, PND, abdominal pain, nausea, vomiting, diarrhea, constipation, dysuria, hematuria, frequency, back pain, joint pain or swelling, easy bruising or bleeding, skin lesions or rashes. Physical Exam Physical Exam: General: Resting comfortably in her hospital bed. When initially seen, was awake but somnolent. Followed simple commands. Seen after self extubated and resting calmly on Oxymask occasional moan. at bedside and tearful. HEENT: Head is AT/NC buccal mucosa is moist and pink Neck: No JVD. Negative hepatojugular reflex Cardiac: RRR Lungs:when seen by myself initially, was breathing comfortably in ventilatory support. Abdomen: Normoactive X4. Soft but does grimace with palpation of the RUQ/epigastric region Extremities: Left leg edema seems resolved. no peripheral C/C/E. Pulses diminished Neuro: somnolent. on ventilatory support. follows simple commands. Skin: No obvious skin lesions or rashes Psych:initially-- was calm but awake and following simple commands. After self extubated and placed back on low dose precedex, was calm with occasional moan Results & Data Results & Data ([facility]) Vital Signs (Past 12 Hours) Vital Signs Temp Pulse Resp BP BP Pulse Ox 06/13/21 13:02 108/55 L 06/13/21 13:00 37.4 C 57 L 16 95 06/13/21 12:33 146/61 H 06/13/21 12:00 37.4 C 56 L 20 95 06/13/21 11:33 127/63 06/13/21 11:00 37.6 C H 58 L 20 96 06/13/21 10:45 37.6 C H 64 22 93 06/13/21 10:33 122/63 06/13/21 10:30 37.7 C H 62 20 95 06/13/21 10:15 37.7 C H 65 22 93 06/13/21 10:11 121/59 L 06/13/21 10:00 37.8 C H 92 06/13/21 09:45 37.8 C H 72 06/13/21 09:30 37.9 C H 62 22 93 06/13/21 09:15 38.1 C H 56 L 13 93 06/13/21 09:00 38.2 C H 63 20 92 06/13/21 08:45 38.3 C H 59 L 18 94 06/13/21 08:30 38.2 C H 54 L 95 06/13/21 08:15 38.2 C H 54 L 28 H 94 06/13/21 08:00 38.3 C H 52 L 28 H 94 06/13/21 07:45 38.3 C H 54 L 28 H 94 06/13/21 07:35 53 L 28 H 94 06/13/21 07:30 38.3 C H 53 L 28 H 95 06/13/21 07:15 38.3 C H 54 L 28 H 94 06/13/21 07:00 38.3 C H 56 L 28 H 93 06/13/21 04:55 54 L 29 H 93 PG Care Time/CCT Total # of Minutes Spent Total Time Spent with Patient: Total time spent is greater than 50% in coordination of care (as documented) at patient's floor/unit and/or counseling patient: Coding Level of Care Code 16895 Subseq Hosp Care Lvl 3 Diagnoses ARDS (adult respiratory distress syndrome) J80 Sepsis with acute respiratory failure and septic shock A41.9; R65.21; J96.00 Acute pancreatitis K85.90 Acute pancreatitis complication: unspecified Pancreatitis type: unspecified pancreatitis type Atrial fibrillation with RVR I48.91 Encephalopathy acute G93.40 Hypothyroidism E03.9 Hypothyroidism type: acquired (1) Acute pancreatitis Acute pancreatitis complication: unspecified Pancreatitis type: unspecified pancreatitis type Qualified Code(s): K85.90 - Acute pancreatitis without necrosis or infection, unspecified (2) Hypothyroidism Hypothyroidism type: acquired Qualified Code(s): E03.9 - Hypothyroidism, unspecified
--- NOTE | 2021-06-13 15:03 | Pharmacy Report ---
Pharmacy Abx Initial Consult - Date of Service June 13, 2021 - Pharmacy Dosing Scope Date of Consult: 06/12/21 Consultation requested by: Dr. Hsieh Pharmacy is consulted to initiate vancomycin IV dosing therapy, order appropriate labs and adjust drug dose/frequency. - Subjective The patient is a 81 year old F admitted on 06/10/21 21:34. - Objective Height: 5 ft Weight: 79 kg Vital Signs (Past 12hrs): Vital Signs Temp Pulse Resp BP BP Pulse Ox 06/13/21 14:39 90/49 L 06/13/21 14:32 90/52 L 06/13/21 14:00 37.5 C 57 L 19 96 06/13/21 13:02 108/55 L 06/13/21 13:00 37.4 C 57 L 16 95 06/13/21 12:33 146/61 H 06/13/21 12:00 37.4 C 56 L 20 95 06/13/21 11:33 127/63 06/13/21 11:00 37.6 C H 58 L 20 96 06/13/21 10:45 37.6 C H 64 22 93 06/13/21 10:33 122/63 06/13/21 10:30 37.7 C H 62 20 95 06/13/21 10:15 37.7 C H 65 22 93 06/13/21 10:11 121/59 L 06/13/21 10:00 37.8 C H 92 06/13/21 09:45 37.8 C H 72 06/13/21 09:30 37.9 C H 62 22 93 06/13/21 09:15 38.1 C H 56 L 13 93 06/13/21 09:00 38.2 C H 63 20 92 06/13/21 08:45 38.3 C H 59 L 18 94 06/13/21 08:30 38.2 C H 54 L 95 06/13/21 08:15 38.2 C H 54 L 28 H 94 06/13/21 08:00 38.3 C H 52 L 28 H 94 06/13/21 07:45 38.3 C H 54 L 28 H 94 06/13/21 07:35 53 L 28 H 94 06/13/21 07:30 38.3 C H 53 L 28 H 95 06/13/21 07:15 38.3 C H 54 L 28 H 94 06/13/21 07:00 38.3 C H 56 L 28 H 93 06/13/21 04:55 54 L 29 H 93 Lab Results (24hrs): Laboratory Tests (24 Hours) 06/13/21 06/13/21 06/13/21 03:02 03:02 03:02 WBC 16.35 H Neut # (Auto) 13.88 H Creatinine 1.68 H Est Cr Clr Drug Dosing 24.0 Procalcitonin 60.98 H 06/12/21 06/12/21 14:58 14:58 WBC Neut # (Auto) Creatinine 1.57 H Est Cr Clr Drug Dosing 25.7 Procalcitonin 13.70 H Micro Results: 06/12/21 Unknown Gram Stain - Final Sputum,Vent Suction 06/12/21 14:50 Aerobic Blood Culture - Pending Blood Anaerobic Blood Culture - Pending 06/12/21 14:58 Aerobic Blood Culture - Pending Blood Anaerobic Blood Culture - Pending - Assessment & Plan Assessment * 81 year old F with a history of recurrent pancreatitis presenting to the hospital with septic shock and ARDS * Started on vancomycin + cefepime + Flagyl therapy for likely with aspiration pneumonitis/pneumonia. * Blood and sputum cultures pending * Scr trending up since admission 0.66 --> 1.35 --> 1.57 --> 1.68 * MRSA nasal swab negative Plan Vancomycin IV * Loading dose: 1750 mg (22 mg/kg) * Maintenance dose: originally entered as 1000 mg IV (12.6 mg/kg) every 24 hours. Reducing dose to 750 mg IV tonight given patient's worsening renal function * This new dose is predicted to achieve target AUC/SHAZIA of 400-600 mg/L.hr and may be associated with a 11% risk of nephrotoxicity * AUC/SHAZIA is the preferred PK/PD target for vancomycin * AUC guided dosing is effective and associated with decreased risk of nephrotoxicity compared to traditional trough targets * Will order trough if vancomycin is continued Cefepime * 2g IV q24h * Not a pharmacy consult, but dosed appropriately given indication and patient's current renal function Flagyl * 500mg IV q8h Pharmacy will continue to follow and will adjust dose/frequency as necessary. Thank you.
[2021-06-14] MEDS: HYDROCORTISONE SOD 50 MG in SYRINGE 0 ML IV SCH ×3 (00:16→19:55)
[2021-06-14] MEDS: HYDROmorphone INJ 1 MG/ML SYRINGE IV PRN ×5 (00:32→23:02)
[2021-06-14] MEDS: DEXMEDETOMIDINE HCL 200 MCG in SODIUM CHLORIDE 0.9% 48 ML IV SCH ×10 (02:55→21:23)
[2021-06-14 05:09] LABS: Eosinophils # (auto) 0.01 K/uL (0-0.5); Eosinophils % (auto) 0.1 %; Hematocrit (blood only) 39.5 % (37-47); Hemoglobin 12.9 g/dL (12.0-16.0); Immature Granulocytes # (auto) 0.02 K/uL (0.00-0.02); Immature Granulocytes % (auto) 0.1 %; Lymphocytes # (auto) 0.62 K/uL (1.2-3.4); Lymphocytes % (auto) 4.3 %; Mean Corpuscular Hemoglobin 32.5 pg (25-34); Mean Corpuscular Hgb Conc 32.7 g/dL (32-36); Mean Corpuscular Volume 99.5 fL (80-100); Mean Platelet Volume 9.9 fL (7.4-10.4); Monocytes # (auto) 1.13 K/uL (0.11-0.59); Monocytes % (auto) 7.8 %; Neutrophils % (auto) 87.7 %; Platelet Count 222 K/uL (130-400); RDW Coefficient of Variation 13.8 % (11.5-14.5); RDW Standard Deviation 50.1 fL (36.4-46.3); Red Blood Count 3.97 M/uL (4.2-5.4); White Blood Count 14.48 K/uL (4.8-10.8)
[2021-06-14 05:23] LABS: Albumin Level 1.8 gm/dl (3.4-5.0); BUN Creatinine Ratio 46.9 (10-20); Calcium 8.6 mg/dl (8.5-10.1); Est GFR (African American) 45.9 ml/min; Est GFR (Non-African American) 39.6 ml/min; Potassium 4.2 mmol/L (3.5-5.1)
[2021-06-14 05:29] LABS: Bilirubin Direct 0.1 mg/dl (0-0.2); Bilirubin,Total 0.4 mg/dl (0.2-1); Phosphorus 2.5 mg/dl (2.5-4.9); Total Protein 5.3 gm/dl (6.4-8.2)
[2021-06-14] MEDS: metroNIDAZOLE 500 MG/100 ML BAG IV SCH ×3 (05:51→19:54)
[2021-06-14] MEDS: HEPARIN SOD 5,000 UNIT/0.5 ML VIAL SQ SCH ×2 (05:52→13:42)
[2021-06-14] MEDS: NOREPINEPHRINE/D5W 8 MG/508 ML BAG IV SCH (06:30)
--- NOTE | 2021-06-14 08:29 | XRay Report ---
XR chest 1V portable HISTORY: Respiratory failure. Follow-up. COMPARISON: Chest 06/13/2021. FINDINGS: Lines and tubes been removed. Perihilar and bibasilar airspace opacities persist. Suspect a trace left pleural effusion. Calcification along within the left lower lobe remains unchanged. The h eart remains mildly enlarged. IMPRESSION: 1. Lines and tubes up in removed. 2. No change in the perihilar and bibasilar airspace opacities. ACT 112: Negative or not required by law. Electronically signed by: Thomas Charles M.D. 06/14/2021 8:27 AM
--- NOTE | 2021-06-14 08:38 | Critical Care Progress Note ---
Date of Service June 14, 2021 Assessment & Plan (1) Sepsis with acute respiratory failure and septic shock: (2) ARDS (adult respiratory distress syndrome): (3) Pancreatitis: (4) Hypothyroid: Plan: 81-year-old female with a history of recurrent pancreatitis presenting to the hospital with septic shock and ARDS. She was found to have pancreatitis. Was also in A. fib with RVR and was cardioverted. Extubated 06/13/2021 Neurologic: On Precedex Pulmonary: --Acute hypoxic respiratory failure Secondary to multilobar pneumonia likely secondary to aspiration Patient was extubated 06/13/2021 Continue with O2 supplementation to keep oxygen saturation between 90-92% Patient will benefit from incentive spirometry but unfortunately her mental status is not good to follow commands Cardiovascular: --Shock Likely from sepsis New with vasopressor support to keep MAP greater than 65 On stress dose steroids. We will taper it off gradually --A. 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 Aortic valve sclerosis of moderate degree. RVSP of 50 to 60 mmHg Gastrointestinal: --Pancreatitis MRCP 06/10/2021 with findings of acute mild pancreatitis. No biliary ductal dilation or biliary filling defects. Large hiatal hernia. Lipase continues to improve. Gastroenterology consulted for pancreatitis. Triglycerides 81(within normal limit) possible autoimmune pancreatitis. Renal: -- CRUZ Likely from hypotension Improving Monitor BUN/creatinine Avoid nephrotoxic medications Strict ins and outs CRUZ in the setting of septic shock. Mild CRUZ seen likely secondary to hypotension and ATN. Continue to monitor urine output. Infectious disease: --Aspiration pneumonia Plan as above Procalcitonin 13.7--> 60.98--> 40.2 Blood cultures, urinalysis and sputum culture negative to date Will monitor for necrotizing pancreatitis. Continue cefepime and Flagyl. Hematologic: No DVT seen on ultrasound evidence. Endocrine: --Hypothyroidism Follow-up repeat TSH On IV levothyroxine 50 g given n.p.o. status. She is normally on 88 mcg p.o. of levothyroxine. --Prophylaxis VTE: Protonix GI: Heparin Lines: Right femoral triple-lumen, positive Cain Diet: N.p.o. Plan: In/out: Positive for 98, urine output 850, patient is +8 L since coming to the hospital Chest x-ray from today shows poor inspiratory effort with diffuse alveolar opacities especially in the lower lobes. Continue with cefepime and Flagyl to cover for aspiration pneumonia Decrease hydrocortisone to 50 mg every 12hrs We will try to titrate off Precedex Will need aggressive suctioning. We will consider giving a dose of Lasix later today I have personally spent 40 minutes of critical care time in the direct management of this patient. This is a life/limb threatening event. This includes time spent evaluating patient, direct bedside care, chart review, placing orders, interpretation of diagnostic studies, discussion with consultants, patient, and family members, as well as other required patient management activities. This time is exclusive of all separately billable procedures, and teaching time and separate from and in addition to any other critical care service time. Thank you for allowing us to participate in the care of this patient. Admission and Anticipated Discharge Date Admission Date: June 10, 2021 Subjective Seen and examined at bedside. No acute distress Patient was Precedex 0.6 and Levophed 0.03 the time of examination Patient was not following commands. She did answer the question about her name Patient still spiking fever T-max 38 Review of Systems Review of Systems: All systems reviewed & are unremarkable except as noted in Subjective and Unobtainable due to mental health condition Physical Exam Physical Exam: Constitutional: No acute distress HEENT: EOMI, PERRLA Respiratory system: Decreased air entry bilaterally, no wheeze, no rhonchi, positive crackles bilateral lower lobes CVS: S1-S2 positive, no murmurs or gallops Abdomen: Soft, nontender, nondistended, positive bowel sounds x4 Extremities: +2 pulses bilaterally radialis/ dorsalis pedis, no cyanosis, no edema Neuro: Somnolent, oriented to only self Psych: Unable to assess G/U: Positive Cain Skin: no rashes, warm and dry Lymphatic: no cervical or axillary lymphadenopathy Results & Data Results & Data ([facility]) Vital Signs (Past 12 Hours) Vital Signs Temp Pulse Resp BP Pulse Ox 06/14/21 00:00 38.0 C H 57 L 17 133/67 95 06/13/21 23:00 38.1 C H 58 L 17 115/62 95 06/13/21 22:00 38.0 C H 58 L 18 109/55 L 94 06/13/21 21:00 38.0 C H 56 L 16 103/58 L 95 06/14/21 04:50 06/14/21 04:50 Coding Level of Care Code Critical Care 1st 30-74 mins Diagnoses Sepsis with acute respiratory failure and septic shock A41.9; R65.21; J96.00 ARDS (adult respiratory distress syndrome) J80 Pancreatitis K85.00 Acute pancreatitis complication: unspecified Chronicity: acute Pancreatitis type: idiopathic Hypothyroid E03.9 Time Spent (min) 40 (1) Pancreatitis Acute pancreatitis complication: unspecified Chronicity: acute Pancreatitis type: idiopathic Qualified Code(s): K85.00 - Idiopathic acute pancreatitis without necrosis or infection
[2021-06-14] MEDS ORDERED: CEFEPIME 2,000 MG in SYRINGE 0 ML IV SCH (09:00)
[2021-06-14] MEDS ORDERED: ARTIFICIAL TEARS OP OINT 3.5 GM TUBE OP PRN (10:17)
[2021-06-14] MEDS: PANTOprazole 40 MG in SYRINGE 0 ML IV SCH (11:02)
--- NOTE | 2021-06-14 11:48 | Electrocardiogram Report ---
Test Reason : Blood Pressure : / mmHG Vent. Rate : 170 BPM Atrial Rate : 163 BPM P-R Int : 000 ms QRS Dur : 092 ms QT Int : 296 ms P-R-T Axes : 000 049 267 degrees QTc Int : 497 ms Poor data quality, interpretation may be adversely affected Atrial fibrillation with rapid ventricular response Abnormal ECG When compared with ECG of 10-JUN-2021 18:28, Atrial fibrillation has replaced Sinus rhythm Vent. rate has increased BY 105 BPM Incomplete right bundle branch block is no longer Present Confirmed by Cabrera Reno ([id number]) on 06/14/2021 11:48:11 AM Referred By: REFERRED SELF Confirmed By:Aubrey Reno
--- NOTE | 2021-06-14 13:11 | Psychiatric Progress Note ---
Date of Service June 14, 2021 Impression / Recommendations Impression 81 yo woman with no psychiatric history admitted for pancreatitis with further medical complications including ARDS and sepsis requiring ICU care. Psychiatry was consulted for delirium management and decision making capacity regarding ability to refuse life saving care. Continues to have delirium. Does not have DCM regarding refusal of medical care since she is acutely delirious and best substituted judgment is consistent with receiving all necessary medical care. (1) Encephalopathy acute: Delirium management: -haldol 2-5 mg IV q4H prn, not to exceed 10 mg in 24 hours; ensure ongoing monitoring of QTc and discontinue if QTc > 460 ms -could use ativan if absolutely necessary for acute agitation but caution that it will worsen delirium. Rec: ativan 2 mg IV q2h prn, not to exceed 12 mg in 24 hours Decision Making Capacity: -she is currently delirious and does not have DMC to refuse medical treatment; however DMC is assessed for a specific point in time and specific decision and must be reassessed should delirium resolve Interval History Identifying Information 81 yo woman with no psychiatric history admitted for pancreatitis with further medical complications including ARDS and sepsis requiring ICU care. Psychiatry was consulted for delirium management and decision making capacity regarding ability to refuse life saving care. Chief Complaint mumbles periodically Review of Systems Notes Apparently vocalizes pain at times. ROS unobtainable due to sedation. Subjective Subjective Patient was seen & assessed and chart reviewed. She appears comfortable this morning but reportedly continues to wake intermittently and attempts to pull out her IV lines and pull off her oxygen mask. Has not required any additional haldol since yesterday morning. Physical Exam Psychiatric Orientation: + not alert Apperance: appropriately dressed and appeared stated age Eye Contact: + poor eye contact Motor Behavior: no abnormal motor movements Vital Signs (Past 24 Hours) Last Vital Signs Temp 37.5 C 06/14/21 10:34 Pulse 69 06/14/21 10:34 Resp 21 06/14/21 10:34 BP 133/67 06/14/21 00:00 Pulse Ox 95 06/14/21 10:34 Results & Data ([facility]) Laboratory Results Laboratory Results - last 24 hr 06/14/21 06/14/21 06/14/21 04:50 04:50 04:50 WBC 14.48 H RBC 3.97 L Hgb 12.9 Hct 39.5 MCV 99.5 MCH 32.5 MCHC 32.7 RDW Std Deviation 50.1 H RDW Coeff of Estrell[place] 13.8 Plt Count 222 MPV 9.9 Immature Gran % (Auto) 0.1 Neut % (Auto) 87.7 Lymph % (Auto) 4.3 [place] % (Auto) 7.8 Eos % (Auto) 0.1 Baso % (Auto) 0.0 Neut # (Auto) 12.70 H Lymph # (Auto) 0.62 L [place] # (Auto) 1.13 H Eos # (Auto) 0.01 Baso # (Auto) 0.00 Immature Gran # (Auto) 0.02 Sodium 141 Potassium 4.2 Chloride 112 H Carbon Dioxide 24 Anion Gap 5.0 BUN 59 H Creatinine 1.26 H D Est Cr Clr Drug Dosing 32.0 Est GFR ( Amer) 45.9 Est GFR (Non-Af Amer) 39.6 BUN/Creatinine Ratio 46.9 H Glucose 118 H Calcium 8.6 Phosphorus 2.5 Magnesium 2.0 Total Bilirubin 0.4 Direct Bilirubin 0.1 AST 27 ALT 22 Alkaline Phosphatase 31 L Total Protein 5.3 L Albumin 1.8 L Lipase 93 Procalcitonin 40.20 H TSH 06/14/21 04:50 WBC RBC Hgb Hct MCV MCH MCHC RDW Std Deviation RDW Coeff of Estrellita Plt Count MPV Immature Gran % (Auto) Neut % (Auto) Lymph % (Auto) [place] % (Auto) Eos % (Auto) Baso % (Auto) Neut # (Auto) Lymph # (Auto) [place] # (Auto) Eos # (Auto) Baso # (Auto) Immature Gran # (Auto) Sodium Potassium Chloride Carbon Dioxide Anion Gap BUN Creatinine Est Cr Clr Drug Dosing Est GFR ( Amer) Est GFR (Non-Af Amer) BUN/Creatinine Ratio Glucose Calcium Phosphorus Magnesium Total Bilirubin Direct Bilirubin AST ALT Alkaline Phosphatase Total Protein Albumin Lipase Procalcitonin TSH 1.910 Current Inpatient Medications Current Inpatient Medications: Current Inpatient Medications Albuterol (Albut/Ipratrop 3mg/0.5mg Neb 3 Ml Vial) 3 ml NEB QIDR PRN PRN Reason: Shortness Of Breath Or Wheezing Stop: 07/12/21 12:59 Heparin Sodium (Porcine) (Heparin Sod 5,000 Unit/0.5 Ml Vial) 5,000 units SQ Q8 SILVA Stop: 07/14/21 05:59 Last Admin: 06/14/21 05:52 Dose: 5,000 units Documented by: Hydromorphone HCl (Hydromorphone Inj 1 Mg/Ml Syringe) 1 mg IV Q3H PRN PRN Reason: Pain Stop: 06/26/21 12:59 Last Admin: 06/14/21 03:27 Dose: 1 mg Documented by: Metronidazole (Flagyl) 500 mg in 100 mls @ 100 mls/hr IV Q8H SILVA Stop: 06/22/21 13:29 Last Infusion: 06/14/21 07:23 Dose: Infused Documented by: Norepinephrine Bitartrate (Levophed/D5w) 8 mg in 508 mls @ 0 mls/hr IV .Q0M SILVA; Protocol Stop: 07/12/21 13:29 Last Titration: 06/14/21 08:13 Dose: 0 mcg/kg/min, 0 mls/hr Documented by: Dexmedetomidine HCl 200 mcg/ (Sodium Chloride) 50 mls @ 11.85 mls/hr IV .Q4H14M SILVA; Protocol Stop: 06/16/21 14:44 Last Titration: 06/14/21 09:53 Dose: 0.6 mcg/kg/hr, 11.9 mls/hr Documented by: Pantoprazole Sodium 40 mg/ (Syringe) 10 mls @ 5 mls/min IV DAILY@1100 SILVA Stop: 07/13/21 10:59 Last Admin: 06/14/21 11:02 Dose: 5 mls/min Documented by: Levothyroxine Sodium 50 mcg/ (Syringe) 2.5 mls @ 2 mls/min IV Q72H SILVA; Protocol Stop: 07/13/21 09:29 Last Admin: 06/13/21 10:40 Dose: 2 mls/min Documented by: Cefepime HCl 2,000 mg/ Syringe 20 mls @ 5 mls/min IV Q12H [facility]; Protocol Stop: 06/19/21 08:59 Hydrocortisone Sodium (Succinate 50 mg/ Syringe) 1 mls @ 4 mls/min IV Q12 [facility] Stop: 07/14/21 20:59 Miscellaneous (Cyclosporine [Restasis]: Order Awaiting Action) 1 ea N/A QS [facility] Stop: 07/11/21 07:59 Last Admin: 06/14/21 08:32 Dose: 1 ea Documented by: Multi-Ingredient Cream (Artificial Tears Op Oint 3.5 Gm Tube) 1 appln OP BID PRN PRN Reason: eye irritation Stop: 07/14/21 10:16 Ondansetron HCl (Ondansetron Inj 2 Mg/Ml 2 Ml Vial) 4 mg IV Q6H PRN PRN Reason: Nausea Stop: 07/10/21 23:39 Last Admin: 06/12/21 12:30 Dose: 4 mg Documented by:
--- NOTE | 2021-06-14 14:41 | Electrocardiogram Report ---
Test Reason : Blood Pressure : / mmHG Vent. Rate : 070 BPM Atrial Rate : 070 BPM P-R Int : 172 ms QRS Dur : 100 ms QT Int : 386 ms P-R-T Axes : 038 005 028 degrees QTc Int : 416 ms Normal sinus rhythm Possible Left atrial enlargement Abnormal ECG When compared with ECG of 12-JUN-2021 12:47, Vent. rate has decreased BY 58 BPM Questionable change in QRS axis Non-specific change in ST segment in Inferior leads Confirmed by Cabrera Reno ([id number]) on 06/14/2021 2:39:38 PM Referred By: REFERRED SELF Confirmed By:Aubrey Reno
--- NOTE | 2021-06-14 18:50 | Hospitalist Progress Note ---
Date of Service June 14, 2021 Assessment & Plan (1) Sepsis with acute respiratory failure and septic shock: Plan: This patient is in 81 y/o WF with a PMHx of Hypothyroidism and recurrent pancreatitis admitted 06/10 with pancreatitis (Lipase [id number])-- recurrent issues without obvious cause, suspected idiopathic pancreatitis versus autoimmune Previously had gallbladder sludge but patient had declined to have cholecystectomy several years ago and gallbladder ultrasound here again with gallbladder sludge She had EUS which showed pancreatic head cyst in 2018 but then did not return for follow-up EUS at [facility] as planned [address] of A/P: pancreatitis without cyst/pseudocyst and ductal dilation LFT's initially WNL and then only mild elevation in AST after that, total bilirubin normal MRCP: pancreatitis without cyst/pseudocyst/abscess or ductal dilation Triglyceride level WNL: 28 Patient does not drink ETOH Procalcitonin peaked at 60 and is now down to 40 - seen by GI early on in the course of admission and plan was for EUS as OP with Dr. Mclain - Patient did not tolerate clear liquids-- had increased pain and nausea with multiple bouts of emesis which led to aspiration pneumonitis, hypoxia, as well as rapid atrial fibrillation and profound hypotension requiring emergent DC cardioversion and emergent intubation and was transferred to the ICU -Chest x-ray consistent with aspiration pneumonia and she had bronchoscopy to clear out the lungs by pulmonology -She was also started on IV amiodarone and was started on 3 pressors and eventually stabilized -Now weaned off all vasopressors and self extubated, but remains significantly encephalopathic -Continue cefepime and metronidazole -Continue IV Dilaudid as needed for pain -Was on stress dose steroids with hydrocortisone which is now being weaned off- accounts for leukocytosis -Remains n.p.o. while quite encephalopathic -Continue to monitor urine output, blood pressures -Monitor CBC, CMP Appreciate accredited pharmacy technician management -Gave 1 dose of IV Lasix on 06/14 -Follow chest x-ray (2) Atrial fibrillation with RVR: Plan: - Likely sepsis driven due to catecholamine release -With profound hypotension as above requiring urgent DC cardioversion -Amiodarone drip now discontinued No need for anticoagulation Continue to monitor on telemetry -Continue to keep electrolytes replaced (3) Encephalopathy acute: Plan: Profound, continues to be quite agitated as per nursing staff and trying to pull out her tubes and lines, is shouting out things that do not make sense Her family is obviously very upset by this as it is not normal for her -Continue to treat underlying inflammatory and infectious issues as above -Was treated with IV Haldol as needed -Treat pain with IV Dilaudid -Appreciate psychiatry consultation -Continue Precedex drip (4) Hypothyroid: Plan: TSH here normal at 1.9 Continue IV levothyroxine for now while n.p.o. (5) Acute pancreatitis: Plan: As above, idiopathic versus autoimmune? She is noted to not have any alcohol history, however her MCV is quite elevated without anemia-we will need to verify this with family Possibly secondary to gallbladder sludge Also had pancreatic cyst seen on EUS in 2018-this needs repeat EUS for follow-up in 4 weeks after discharge No further IV fluids to be given as she is volume overloaded with ARDS picture Pain control as needed (6) Hiatal hernia: Plan: Large hiatal hernia with approximately half the stomach located in the thoracic cavity noted on CT abdomen/pelvis Continues on IV Protonix here once daily (7) Aspiration pneumonia: Plan: As above Continue treating with antibiotics Monitor chest x-ray and oxygenation (8) CRUZ (acute kidney injury): Plan: With creatinine elevated to 1.68 at peak and now improved on 1.2 Likely secondary to ATN from hypotension and septic shock Follow BMP Renally dose medications Plan: DVT prophylaxis Heparin SQ Disposition-continued stay in the ICU Admission and Anticipated Discharge Date Admission Date: June 10, 2021 Subjective Patient has been significantly agitated throughout the day as per nursing staff. They asked that I not wake her this evening as she finally got settled down. She remains in restraints for safety as she continues to grab at her central line and tubes. She did self extubate previously. Remains in sinus rhythm Review of Systems Review of Systems: Unobtainable due to cognitive status Physical Exam Constitutional: average body habitus; no acute distress Respiratory: normal respiratory effort Results & Data Results & [facility] ([facility]) Vital Signs (Past 12 Hours) Vital Signs Temp Pulse Resp BP BP Pulse Ox 06/14/21 18:00 95/63 L 06/14/21 17:00 111 H 21 115/60 95 06/14/21 16:00 86 19 108/77 95 06/14/21 15:00 86 23 107/78 95 06/14/21 14:00 92 H 24 101/76 92 06/14/21 13:00 37.1 C 64 20 135/67 135/67 97 06/14/21 12:00 37.2 C 70 21 135/71 94 06/14/21 11:00 37.1 C 75 23 122/61 86 L 06/14/21 10:34 37.5 C 69 21 95 06/14/21 10:33 37.5 C 68 23 95 06/14/21 10:32 37.5 C 65 21 94 06/14/21 10:31 37.5 C 65 18 93 06/14/21 10:30 37.5 C 66 21 93 06/14/21 10:29 37.5 C 69 22 94 06/14/21 10:28 37.5 C 70 25 H 93 06/14/21 10:27 37.6 C H 76 23 93 06/14/21 10:26 37.6 C H 66 19 93 06/14/21 10:25 37.6 C H 67 22 93 06/14/21 10:24 37.6 C H 69 25 H 93 06/14/21 10:23 37.6 C H 67 21 93 06/14/21 10:22 37.6 C H 69 22 94 06/14/21 10:21 37.6 C H 66 20 93 06/14/21 10:20 37.6 C H 66 19 94 06/14/21 10:19 37.6 C H 67 21 95 06/14/21 10:18 37.6 C H 67 24 93 06/14/21 10:17 37.6 C H 70 26 H 98 06/14/21 10:16 37.6 C H 70 22 95 06/14/21 10:15 37.6 C H 72 23 91 06/14/21 10:14 37.6 C H 81 23 94 06/14/21 10:13 37.6 C H 74 18 98 06/14/21 10:12 37.6 C H 71 23 92 06/14/21 10:11 37.6 C H 71 23 92 06/14/21 10:10 37.6 C H 71 22 92 06/14/21 10:09 37.6 C H 72 28 H 92 06/14/21 10:08 37.6 C H 71 21 93 06/14/21 10:07 37.7 C H 71 23 93 06/14/21 10:06 37.7 C H 73 23 93 06/14/21 10:05 37.7 C H 69 24 94 06/14/21 10:04 37.7 C H 69 22 93 06/14/21 10:03 37.7 C H 68 22 93 06/14/21 10:02 37.8 C H 68 23 93 06/14/21 10:01 37.8 C H 73 24 93 06/14/21 10:00 37.8 C H 70 23 92 06/14/21 09:00 37.9 C H 78 22 92 06/14/21 08:00 38.1 C H 61 20 93 06/14/21 07:00 38.1 C H 65 23 94 Laboratory Results 06/14/21 06/14/21 06/14/21 Range/Units 04:50 04:50 04:50 WBC (4.8-10.8) K/uL RBC (4.2-5.4) M/uL Hgb (12.0-16.0) g/dL Hct (37-47) % MCV (80-100) fL MCH (25-34) pg MCHC (32-36) g/dL RDW Std Deviation (36.4-46.3) fL RDW Coeff of Estrellita (11.5-14.5) % Plt Count (130-400) K/uL MPV (7.4-10.4) fL Immature Gran % (Auto) % Neut % (Auto) % Lymph % (Auto) % [place] % (Auto) % Eos % (Auto) % Baso % (Auto) % Neut # (Auto) (1.4-6.5) K/uL Lymph # (Auto) (1.2-3.4) K/uL [place] # (Auto) (0.11-0.59) K/uL Eos # (Auto) (0-0.5) K/uL Baso # (Auto) (0-0.2) K/uL Immature Gran # (Auto) (0.00-0.02) K/uL Sodium 141 (136-145) mmol/L Potassium 4.2 (3.5-5.1) mmol/L Chloride 112 H (98-107) mmol/L Carbon Dioxide 24 (21-32) mmol/L Anion Gap 5.0 (3-11) BUN 59 H (7-18) mg/dl Creatinine 1.26 H D (0.6-1.2) mg/dl Est Cr Clr Drug Dosing 32.0 ml/min Est GFR ( Amer) 45.9 ml/min Est GFR (Non-Af Amer) 39.6 ml/min BUN/Creatinine Ratio 46.9 H (10-20) Glucose 118 H (70-99) mg/dl Calcium 8.6 (8.5-10.1) mg/dl Phosphorus 2.5 (2.5-4.9) mg/dl Magnesium 2.0 (1.8-2.4) mg/dl Total Bilirubin 0.4 (0.2-1) mg/dl Direct Bilirubin 0.1 (0-0.2) mg/dl AST 27 (15-37) U/L ALT 22 (12-78) U/L Alkaline Phosphatase 31 L (45-117) U/L Total Protein 5.3 L (6.4-8.2) gm/dl Albumin 1.8 L (3.4-5.0) gm/dl Lipase 93 (73-393) U/L Procalcitonin 40.20 H (0-0.5) ng/ml TSH 1.910 (0.300-4.500) uIu/ml 06/14/21 Range/Units 04:50 WBC 14.48 H (4.8-10.8) K/uL RBC 3.97 L (4.2-5.4) M/uL Hgb 12.9 (12.0-16.0) g/dL Hct 39.5 (37-47) % MCV 99.5 (80-100) fL MCH 32.5 (25-34) pg MCHC 32.7 (32-36) g/dL RDW Std Deviation 50.1 H (36.4-46.3) fL RDW Coeff of Estrellita 13.8 (11.5-14.5) % Plt Count 222 (130-400) K/uL MPV 9.9 (7.4-10.4) fL Immature Gran % (Auto) 0.1 % Neut % (Auto) 87.7 % Lymph % (Auto) 4.3 % [place] % (Auto) 7.8 % Eos % (Auto) 0.1 % Baso % (Auto) 0.0 % Neut # (Auto) 12.70 H (1.4-6.5) K/uL Lymph # (Auto) 0.62 L (1.2-3.4) K/uL [place] # (Auto) 1.13 H (0.11-0.59) K/uL Eos # (Auto) 0.01 (0-0.5) K/uL Baso # (Auto) 0.00 (0-0.2) K/uL Immature Gran # (Auto) 0.02 (0.00-0.02) K/uL Sodium (136-145) mmol/L Potassium (3.5-5.1) mmol/L Chloride (98-107) mmol/L Carbon Dioxide (21-32) mmol/L Anion Gap (3-11) BUN (7-18) mg/dl Creatinine (0.6-1.2) mg/dl Est Cr Clr Drug Dosing ml/min Est GFR ( Amer) ml/min Est GFR (Non-Af Amer) ml/min BUN/Creatinine Ratio (10-20) Glucose (70-99) mg/dl Calcium (8.5-10.1) mg/dl Phosphorus (2.5-4.9) mg/dl Magnesium (1.8-2.4) mg/dl Total Bilirubin (0.2-1) mg/dl Direct Bilirubin (0-0.2) mg/dl AST (15-37) U/L ALT (12-78) U/L Alkaline Phosphatase (45-117) U/L Total Protein (6.4-8.2) gm/dl Albumin (3.4-5.0) gm/dl Lipase (73-393) U/L Procalcitonin (0-0.5) ng/ml TSH (0.300-4.500) uIu/ml Diagnostic Findings Chest X-Ray 06/14/21 07:00 XR chest 1V portable HISTORY: Respiratory failure. Follow-up. COMPARISON: Chest 06/13/2021. FINDINGS: Lines and tubes been removed. Perihilar and bibasilar airspace opacities persist. Suspect a trace left pleural effusion. Calcification along within the left lower lobe remains unchanged. The heart remains mildly enlarged. IMPRESSION: 1. Lines and tubes up in removed. 2. No change in the perihilar and bibasilar airspace opacities. ACT 112: Negative or not required by law. Electronically signed by: Thomas Charles M.D. 06/14/2021 8:27 AM PG Care Time/CCT Total # of Minutes Spent Total Time Spent with Patient: Total time spent is greater than 50% in coordination of care (as documented) at patient's floor/unit and/or counseling patient: Coding Level of Care Code 71600 Subseq Hosp Care Lvl 1 Diagnoses Sepsis with acute respiratory failure and septic shock A41.9; R65.21; J96.00 Atrial fibrillation with RVR I48.91 Encephalopathy acute G93.40 Hypothyroid E03.9 Acute pancreatitis K85.90 Acute pancreatitis complication: unspecified Pancreatitis type: unspecified pancreatitis type Hiatal hernia K44.9 Aspiration pneumonia J69.0 CRUZ (acute kidney injury) N17.9 (1) Acute pancreatitis Acute pancreatitis complication: unspecified Pancreatitis type: unspecified pancreatitis type Qualified Code(s): K85.90 - Acute pancreatitis without necrosis or infection, unspecified
[2021-06-14] MEDS: CEFEPIME 2,000 MG in SYRINGE 0 ML IV SCH (19:53)
[2021-06-15] MEDS: HEPARIN SOD 5,000 UNIT/0.5 ML VIAL SQ SCH ×4 (00:22→19:35)
[2021-06-15] MEDS ORDERED: HALOPERIDOL LACTATE 5 MG/ML 1 ML VIAL ONE (02:14)
[2021-06-15] MEDS ORDERED: HALOPERIDOL LACTATE 5 MG/ML 1 ML VIAL IV STA (02:18)
[2021-06-15] MEDS: HYDROmorphone INJ 1 MG/ML SYRINGE IV PRN ×5 (02:21→19:35)
[2021-06-15] MEDS: DEXMEDETOMIDINE HCL 200 MCG in SODIUM CHLORIDE 0.9% 48 ML IV SCH (04:18)
[2021-06-15 04:56] LABS: Basophils # (auto) 0.01 K/uL (0-0.2); Basophils % (auto) 0.1 %; Hemoglobin 13.6 g/dL (12.0-16.0); Immature Granulocytes # (auto) 0.06 K/uL (0.00-0.02); Immature Granulocytes % (auto) 0.3 %; Lymphocytes # (auto) 0.98 K/uL (1.2-3.4); Lymphocytes % (auto) 5.3 %; Mean Corpuscular Hemoglobin 32.5 pg (25-34); Mean Corpuscular Hgb Conc 33.2 g/dL (32-36); Mean Corpuscular Volume 97.9 fL (80-100); Mean Platelet Volume 10.2 fL (7.4-10.4); Monocytes # (auto) 0.88 K/uL (0.11-0.59); Monocytes % (auto) 4.8 %; Neutrophils # (auto) 16.45 K/uL (1.4-6.5); Neutrophils % (auto) 89.5 %; Platelet Count 288 K/uL (130-400); RDW Coefficient of Variation 13.9 % (11.5-14.5); Red Blood Count 4.19 M/uL (4.2-5.4); White Blood Count 18.38 K/uL (4.8-10.8)
[2021-06-15] MEDS: metroNIDAZOLE 500 MG/100 ML BAG IV SCH ×3 (05:50→19:35)
[2021-06-15 07:21] LABS: BUN Creatinine Ratio 51.4 (10-20); Calcium 9.2 mg/dl (8.5-10.1); Creatinine Clr Calc Pharmacy 39.2 ml/min; Est GFR (African American) 58.6 ml/min; Est GFR (Non-African American) 50.6 ml/min; Magnesium 2.2 mg/dl (1.8-2.4); Phosphorus 2.3 mg/dl (2.5-4.9)
[2021-06-15] MEDS: CEFEPIME 2,000 MG in SYRINGE 0 ML IV SCH ×2 (08:15→19:35)
[2021-06-15] MEDS: ONDANSETRON INJ 2 MG/ML 2 ML VIAL IV PRN (08:15)
[2021-06-15] MEDS: HYDROCORTISONE SOD 50 MG in SYRINGE 0 ML IV SCH (08:16)
--- NOTE | 2021-06-15 09:03 | Critical Care Progress Note ---
Date of Service June 15, 2021 Assessment & Plan (1) Sepsis with acute respiratory failure and septic shock: (2) ARDS (adult respiratory distress syndrome): (3) Pancreatitis: (4) Hypothyroid: Plan: 81-year-old female with a history of recurrent pancreatitis presenting to the hospital with septic shock and ARDS. She was found to have pancreatitis. Was also in A. fib with RVR and was cardioverted. Extubated 06/13/2021 Neurologic: Delirium:- still confused with bouts of agitation Pulmonary: --Acute hypoxic respiratory failure Secondary to multilobar pneumonia likely secondary to aspiration Patient was extubated 06/13/2021 Continue with O2 supplementation to keep oxygen saturation between 90-92% Patient will benefit from incentive spirometry but unfortunately her mental status is not good to follow commands Cardiovascular: --S/p shock Likely from sepsis New with vasopressor support to keep MAP greater than 65 On stress dose steroids. We will taper it off gradually --A. fib with RVR Patient was started on amiodarone drip It has been stopped cotton classer 06/14/2021 2D echo 06/12/2021: severe LVH. Aortic valve sclerosis of moderate degree. RVSP of 50 to 60 mmHg Gastrointestinal: --Pancreatitis MRCP 06/10/2021 with findings of acute mild pancreatitis. No biliary ductal dilation or biliary filling defects. Large hiatal hernia. Lipase continues to improve. Gastroenterology consulted for pancreatitis. Triglycerides 81(within normal limit) possible autoimmune pancreatitis. Renal: -- CRUZ--> improving Likely from hypotension Improving Monitor BUN/creatinine Avoid nephrotoxic medications Strict ins and outs Infectious disease: --Aspiration pneumonia Plan as above Procalcitonin 13.7--> 60.98--> 40.2 Blood cultures, urinalysis and sputum culture negative to date Will monitor for necrotizing pancreatitis. Continue cefepime and Flagyl. Hematologic: No DVT seen on ultrasound evidence. Endocrine: --Hypothyroidism TSH 1.9 On IV levothyroxine 50 mcg given n.p.o. status. She is normally on 88 mcg p.o. of levothyroxine. --Prophylaxis VTE: Protonix GI: Heparin Lines: Right femoral triple-lumen, positive Cain Diet: N.p.o. Plan: In/out: -839, urine output 1325 Decrease hydrocortisone to 50 MCG daily for 2 days and then stop 20 mg of Lasix given today We will DC the right femoral TLC Patient blood pressure is on the higher side now We will consider starting the patient on Metorpolol IV Repeat EKG and chest x-ray in the morning I have personally spent 35 minutes of critical care time in the direct management of this patient. This is a life/limb threatening event. This includes time spent evaluating patient, direct bedside care, chart review, placing orders, interpretation of diagnostic studies, discussion with consultants, patient, and family members, as well as other required patient management activities. This time is exclusive of all separately billable procedures, and teaching time and separate from and in addition to any other critical care service time. Thank you for allowing us to participate in the care of this patient. Admission and Anticipated Discharge Date Admission Date: June 10, 2021 Subjective Patient seen and examined at bedside. No acute distress. Overnight patient did have a bout of agitation for which she was given haloperidol She has been off Precedex since later last night Patient is still requiring oxygen Unfortunately she is not following commands Review of Systems Review of Systems: All systems reviewed & are unremarkable except as noted in Subjective and Unobtainable due to mental health condition Physical Exam Physical Exam: Constitutional: No acute distress HEENT: EOMI, PERRLA Respiratory system: Decreased air entry bilaterally, no wheeze, no rhonchi, positive crackles bilateral lower lobes CVS: S1-S2 positive, no murmurs or gallops Abdomen: Soft, nontender, nondistended, positive bowel sounds x4 Extremities: +2 pulses bilaterally radialis/ dorsalis pedis, no cyanosis, no edema Neuro: Somnolent, oriented to only self Psych: Unable to assess G/U: Positive Cain Skin: no rashes, warm and dry Lymphatic: no cervical or axillary lymphadenopathy Results & Data Results & Data ([facility]) Vital Signs (Past 12 Hours) Vital Signs Pulse Resp BP Pulse Ox 06/15/21 04:00 84 14 133/66 93 06/15/21 03:00 86 13 130/56 L 92 06/15/21 02:00 93 H 21 148/56 H 90 06/15/21 01:00 83 16 103/58 L 92 06/15/21 00:00 75 14 93/55 L 88 L 06/14/21 23:00 85 29 H 114/65 91 06/14/21 22:00 85 25 H 118/69 91 06/15/21 04:28 06/15/21 06:33 Coding Level of Care Code Critical Care 1st 30-74 mins Diagnoses Sepsis with acute respiratory failure and septic shock A41.9; R65.21; J96.00 ARDS (adult respiratory distress syndrome) J80 Pancreatitis K85.00 Acute pancreatitis complication: unspecified Chronicity: acute Pancreatitis type: idiopathic Hypothyroid E03.9 Time Spent (min) 35 (1) Pancreatitis Acute pancreatitis complication: unspecified Chronicity: acute Pancreatitis type: idiopathic Qualified Code(s): K85.00 - Idiopathic acute pancreatitis without necrosis or infection
[2021-06-15] MEDS ORDERED: FUROSEMIDE INJ 20 MG/2 ML VIAL IV ONE (09:15)
[2021-06-15] MEDS ORDERED: POTASSIUM PHOS 3 MMOL/1 ML INFUSION IV STA (09:52)
[2021-06-15] MEDS ORDERED: POTASSIUM PHOSPHATE 6 MMOL in 0.9 % SODIUM CHLORIDE 100 ML IV ONE (10:00)
[2021-06-15] MEDS: PANTOprazole 40 MG in SYRINGE 0 ML IV SCH (11:00)
--- NOTE | 2021-06-15 11:04 | Hospitalist Progress Note ---
Date of Service June 15, 2021 Assessment & Plan (1) Sepsis with acute respiratory failure and septic shock: Plan: This patient is in 81 y/o WF with a PMHx of Hypothyroidism and recurrent pancreatitis admitted 06/10 with acute pancreatitis (Lipase [id number])-- recurrent issues without obvious cause, suspected idiopathic pancreatitis versus autoimmune-daughter reports that this is patient's 12th episode of pancreatitis in her lifetime Previously had gallbladder sludge but patient had declined to have cholecystectomy several years ago and gallbladder ultrasound here again with gallbladder sludge She had EUS which showed pancreatic head cyst in 2018 but then did not return for follow-up EUS at [place] as planned [address] of A/P: pancreatitis without cyst/pseudocyst and ductal dilation LFT's initially WNL and then only mild elevation in AST after that, total bilirubin normal MRCP: pancreatitis without cyst/pseudocyst/abscess or ductal dilation Triglyceride level WNL: 28 No evidence of hypercalcemia Patient does not drink ETOH-confirmed with both daughter and (as per fiber artist resident) Procalcitonin peaked at 60 and is now continues to trend downward to 23 - seen by GI early on in the course of admission and plan was for EUS as OP with Dr. Mclain - Patient did not tolerate clear liquids-- had increased pain and nausea with multiple bouts of emesis which led to aspiration pneumonitis, hypoxia, as well as rapid atrial fibrillation and profound hypotension requiring emergent DC cardioversion and emergent intubation and was transferred to the ICU -Chest x-ray consistent with aspiration pneumonia and she had bronchoscopy to cl ear out the lungs by pulmonology Acute respiratory failure with hypoxia secondary to ARDS plus some volume overload -She was also started on IV amiodarone and was started on 3 pressors and eventually stabilized -Was been weaned off all vasopressors and self extubated on 06/13 but remains significantly encephalopathic-severely agitated, not able to follow commands or answer questions appropriately, requiring IV Haldol at times -Continue cefepime and metronidazole to cover for aspiration pneumonia -Continue IV Dilaudid as needed for pain -Was on stress dose steroids with hydrocortisone which is now being weaned off- accounts for leukocytosis -Remains n.p.o. while quite encephalopathic-May need TPN or enteral feeds if not able to eat by tomorrow -Continue to monitor urine output, blood pressures -Monitor CBC, CMP Appreciate fiber artist management -Gave 1 dose of IV Lasix on 06/14 and again on 06/15 -Follow chest x-ray -Continue supplemental O2 and wean off as able to-remains on 4 L NC (2) Atrial fibrillation with RVR: Plan: - Likely sepsis driven due to catecholamine release -With profound hypotension as above requiring urgent DC cardioversion earlier in her hospital stay -Amiodarone drip now discontinued No need for anticoagulation as this was quite brief Continue to monitor on telemetry -Continue to keep electrolytes replaced (3) Encephalopathy acute: Plan: Profound, continues to be quite agitated as per nursing staff and trying to pull out her tubes and lines, is shouting out things that do not make sense, not able to follow commands Slightly less agitated today but did receive IV Haldol overnight, weaned off Precedex drip Her family is obviously very upset by this as it is not normal for her Question if there is some Wernicke's encephalopathy given recurrent pancreatitis, may have poor absorption in the gut and may be nutritionally deficient -Continue to treat underlying inflammatory and infectious issues as above with antibiotics -Continue with IV Haldol as needed -Treat pain with IV Dilaudid -Appreciate psychiatry consultation -Start thiamine 500 mg IV once daily -Consider imaging of the brain if no improvement although do not suspect stroke as no focal neurologic deficits -Check ammonia level in the morning -Ensure she is moving her bowels -Continue to treat hypoxia with supplemental O2 (4) Hypothyroid: Plan: TSH here normal at 1.9 Continue IV levothyroxine for now while n.p.o. (5) Acute pancreatitis: Plan: As above, idiopathic versus autoimmune? This is apparently her 12th episode of pancreatitis as per her daughter She is noted to not have any alcohol history which is confirmed by family however her MCV is quite elevated without anemia which may suggest underlying liver disease although synthetic function normal and liver appears normal on imaging Possibly secondary to gallbladder sludge Also had pancreatic cyst seen on EUS in 2018-this needs repeat EUS for follow-up in 4 weeks after discharge No further IV fluids to be given as she is volume overloaded with ARDS picture Pain control as needed (6) Hiatal hernia: Plan: Large hiatal hernia with approximately half the stomach located in the thoracic cavity noted on CT abdomen/pelvis Continues on IV Protonix here once daily (7) Aspiration pneumonia: Plan: As above, improving but remains hypoxic Procalcitonin trending downward, remains afebrile Leukocytosis likely secondary to stress dose steroids Continue treating with cefepime and metronidazole Monitor chest x-ray and oxygenation (8) CRUZ (acute kidney injury): Plan: With creatinine elevated to 1.68 at peak and now improved to 1.0 Likely secondary to ATN from hypotension and septic shock She has making urine, Cain catheter remains in place Follow BMP Renally dose medications Plan: DVT prophylaxis Heparin SQ Disposition-continued stay in the ICU Admission and Anticipated Discharge Date Admission Date: June 10, 2021 Subjective Patient received IV Haldol overnight for significant agitation and remains in restraints as she is trying to pull out her femoral line. When I saw her, she was sleeping and when I tried to ask her questions she would not open her eyes but started to become restless. She did try to follow the command when I asked her to open her eyes she raised her eyebrows but would not completely open her eyes. She with sinus rhythm with frequent PACs and PVCs and at times almost appears to be atrial fibrillation. Discussed her care with the fiber artist team. She has been weaned off Precedex drip Review of Systems Review of Systems: Unobtainable due to cognitive status Physical Exam Constitutional: WD/WN, vitals as above Eyes: Patient would not allow me to examine her eyes or pupils, she would not open her eyes ENMT: external ear and nose normal, oropharynx normal (With dry tongue and lips) Neck: trachea midline, no thyromegaly Respiratory: normal respiratory effort and + cough (Occasional cough); no labored breathing Auscultation: + crackles (Bibasilar) Cardiovascular: RRR, no murmur, no edema (With frequent ectopy) Extremities: + vascular access device (Right femoral central venous catheter) Gastrointestinal (Abdomen): normal bowel sounds, soft, nontender, no hepatosplenomegaly Musculoskeletal: Extremities: extremities normal to inspection; no cyanosis and no clubbing Skin: no rashes, warm and dry Neurologic: moves all extremities; + not awake Genitourinary: Cain catheter in place Lymphatic: no lymphedema Results & Data Results & Data ([facility]) Vital Signs (Past 12 Hours) Vital Signs Pulse Resp BP Pulse Ox 06/15/21 04:00 84 14 133/66 93 06/15/21 03:00 86 13 130/56 L 92 06/15/21 02:00 93 H 21 148/56 H 90 06/15/21 01:00 83 16 103/58 L 92 06/15/21 00:00 75 14 93/55 L 88 L Laboratory Results 06/15/21 06/15/21 06/15/21 Range/Units 15:20 06:33 06:33 WBC (4.8-10.8) K/uL RBC (4.2-5.4) M/uL Hgb (12.0-16.0) g/dL Hct (37-47) % MCV (80-100) fL MCH (25-34) pg MCHC (32-36) g/dL RDW Std Deviation (36.4-46.3) fL RDW Coeff of Estrellita (11.5-14.5) % Plt Count (130-400) K/uL MPV (7.4-10.4) fL Immature Gran % (Auto) % Neut % (Auto) % Lymph % (Auto) % Nuckolls % (Auto) % Eos % (Auto) % Baso % (Auto) % Neut # (Auto) (1.4-6.5) K/uL Lymph # (Auto) (1.2-3.4) K/uL Nuckolls # (Auto) (0.11-0.59) K/uL Eos # (Auto) (0-0.5) K/uL Baso # (Auto) (0-0.2) K/uL Immature Gran # (Auto) (0.00-0.02) K/uL Sodium 145 145 Potassium 4.0 4.0 Chloride 118 H 118 H Carbon Dioxide 21 18 L Anion Gap 6.0 9.0 BUN 55 H 53 H Creatinine 1.15 1.03 Est Cr Clr Drug Dosing 35.1 39.2 Est GFR ( Amer) 51.3 58.6 Est GFR (Non-Af Amer) 44.3 50.6 BUN/Creatinine Ratio 48.0 H 51.4 H Glucose 120 H 106 H Calcium 9.0 9.2 Phosphorus 2.3 L Magnesium 2.2 Procalcitonin 25.86 H 06/15/21 06/15/21 06/15/21 Range/Units 04:28 04:28 04:28 WBC 18.38 H (4.8-10.8) K/uL RBC 4.19 L (4.2-5.4) M/uL Hgb 13.6 (12.0-16.0) g/dL Hct 41.0 (37-47) % MCV 97.9 (80-100) fL MCH 32.5 (25-34) pg MCHC 33.2 (32-36) g/dL RDW Std Deviation 50.0 H (36.4-46.3) fL RDW Coeff of Estrellita 13.9 (11.5-14.5) % Plt Count 288 (130-400) K/uL MPV 10.2 (7.4-10.4) fL Immature Gran % (Auto) 0.3 % Neut % (Auto) 89.5 % Lymph % (Auto) 5.3 % Nuckolls % (Auto) 4.8 % Eos % (Auto) 0.0 % Baso % (Auto) 0.1 % Neut # (Auto) 16.45 H (1.4-6.5) K/uL Lymph # (Auto) 0.98 L (1.2-3.4) K/uL Nuckolls # (Auto) 0.88 H (0.11-0.59) K/uL Eos # (Auto) 0.00 (0-0.5) K/uL Baso # (Auto) 0.01 (0-0.2) K/uL Immature Gran # (Auto) 0.06 H (0.00-0.02) K/uL Sodium Cancelled Potassium Cancelled Chloride Cancelled Carbon Dioxide Cancelled Anion Gap Cancelled BUN Cancelled Creatinine Cancelled Est Cr Clr Drug Dosing Cancelled Est GFR ( Amer) Cancelled Est GFR (Non-Af Amer) Cancelled BUN/Creatinine Ratio Cancelled Glucose Cancelled Calcium Cancelled Phosphorus Cancelled Magnesium Cancelled Procalcitonin Cancelled PG Care Time/CCT Total # of Minutes Spent Total Time Spent with Patient: Total time spent is greater than 50% in coordination of care (as documented) at patient's floor/unit and/or counseling patient: Coding Level of Care Code 03874 Subseq Hosp Care Lvl 3 Diagnoses Sepsis with acute respiratory failure and septic shock A41.9; R65.21; J96.00 Atrial fibrillation with RVR I48.91 Encephalopathy acute G93.40 Hypothyroid E03.9 Acute pancreatitis K85.90 Acute pancreatitis complication: unspecified Pancreatitis type: unspecified pancreatitis type Hiatal hernia K44.9 Aspiration pneumonia J69.0 CRUZ (acute kidney injury) N17.9 (1) Acute pancreatitis Acute pancreatitis complication: unspecified Pancreatitis type: unspecified pancreatitis type Qualified Code(s): K85.90 - Acute pancreatitis without necrosis or infection, unspecified
--- NOTE | 2021-06-15 14:35 | Electrocardiogram Report ---
Test Reason : Blood Pressure : / mmHG Vent. Rate : 096 BPM Atrial Rate : 096 BPM P-R Int : 140 ms QRS Dur : 098 ms QT Int : 348 ms P-R-T Axes : 030 -03 244 degrees QTc Int : 439 ms Sinus rhythm with Premature supraventricular complexes Abnormal ECG When compared with ECG of 14-JUN-2021 10:17, Premature supraventricular complexes are now Present T wave inversion now evident in Inferior leads T wave inversion now evident in Anterolateral leads Confirmed by Cabrera Reno ([id number]) on 06/15/2021 2:35:02 PM Referred By: REFERRED SELF Confirmed By:Aubrey Reno
[2021-06-15] MEDS: THIAMINE HCL 500 MG in SODIUM CHLORIDE 0.9% 50 ML IV SCH (14:39)
[2021-06-15 15:46] LABS: Creatinine Clr Calc Pharmacy 35.1 ml/min; Est GFR (African American) 51.3 ml/min; Est GFR (Non-African American) 44.3 ml/min
[2021-06-15] MEDS ORDERED: METOPROLOL TARTRATE 1 MG/ML VIAL IV ONE ×2 (16:04→20:15)
[2021-06-15] MEDS ORDERED: METOPROLOL TARTRATE 1 MG/ML VIAL IV STA (20:06)
[2021-06-15] MEDS ORDERED: STAT IV Infusion **Titration per Protocol STA ×2 (21:04→22:47)
[2021-06-15] MEDS: PHENYLEPHRINE HCL 20 MG in DEXTROSE 5% 500 ML IV SCH (21:21)
[2021-06-15] MEDS ORDERED: 0.2 MICRON FILTER SET 1 EA IV ONE (22:47)
[2021-06-15] MEDS ORDERED: AMIODARONE IV BOLUS & DRIP IV STA (22:47)
[2021-06-15] MEDS ORDERED: AMIODARONE / D5W 150 MG/100 ML BAG IV STA (22:58)
[2021-06-15] MEDS ORDERED: AMIODARONE / D5W 360 MG/200 ML BAG IV ONE (23:00)
[2021-06-16] MEDS: HYDROmorphone INJ 1 MG/ML SYRINGE IV PRN (00:32)
[2021-06-16 00:51] LABS: BUN Creatinine Ratio 47.4 (10-20); Calcium 9.4 mg/dl (8.5-10.1); Creatinine Clr Calc Pharmacy 33.6 ml/min; Est GFR (African American) 48.7 ml/min; Est GFR (Non-African American) 42.1 ml/min; Magnesium 2.3 mg/dl (1.8-2.4); Potassium 3.9 mmol/L (3.5-5.1)
[2021-06-16] MEDS ORDERED: POTASSIUM PHOS 3 MMOL/1 ML INFUSION IV STA (01:28)
[2021-06-16] MEDS ORDERED: POTASSIUM PHOSPHATE 15 MMOL in SODIUM CHLORIDE 0.9% 250 ML IV ONE (01:45)
[2021-06-16 04:48] LABS: Hematocrit (blood only) 42.6 % (37-47); Hemoglobin 14.1 g/dL (12.0-16.0); Mean Corpuscular Hemoglobin 32.4 pg (25-34); Mean Corpuscular Hgb Conc 33.1 g/dL (32-36); Mean Corpuscular Volume 97.9 fL (80-100); Mean Platelet Volume 9.7 fL (7.4-10.4); Platelet Count 288 K/uL (130-400); RDW Coefficient of Variation 14.2 % (11.5-14.5); RDW Standard Deviation 51.2 fL (36.4-46.3); Red Blood Count 4.35 M/uL (4.2-5.4); White Blood Count 20.54 K/uL (4.8-10.8)
[2021-06-16] MEDS: AMIODARONE / D5W 360 MG/200 ML BAG IV SCH ×2 (04:56→16:32)
[2021-06-16 04:58] LABS: INR 1.1 (0.9-1.1); Prothrombin Time 11.3 Seconds (9.0-12.0)
[2021-06-16 05:07] LABS: Albumin Level 1.8 gm/dl (3.4-5.0); BUN Creatinine Ratio 48.2 (10-20); Bilirubin Direct 0.1 mg/dl (0-0.2); Calcium 9.2 mg/dl (8.5-10.1); Creatinine Clr Calc Pharmacy 35.1 ml/min; Est GFR (African American) 51.3 ml/min; Est GFR (Non-African American) 44.3 ml/min; Magnesium 2.4 mg/dl (1.8-2.4); Potassium 4.1 mmol/L (3.5-5.1)
[2021-06-16 05:29] LABS: Basophils # (auto) 0.01 K/uL (0-0.2); Immature Granulocytes % (auto) 0.5 %; Lymphocytes # (auto) 1.77 K/uL (1.2-3.4); Lymphocytes % (auto) 8.6 %; Monocytes # (auto) 1.15 K/uL (0.11-0.59); Monocytes % (auto) 5.6 %; Neutrophils # (auto) 17.51 K/uL (1.4-6.5); Neutrophils % (auto) 85.3 %
[2021-06-16 05:41] LABS: Bilirubin,Total 0.4 mg/dl (0.2-1); Phosphorus 3.1 mg/dl (2.5-4.9); Total Protein 5.8 gm/dl (6.4-8.2)
[2021-06-16] MEDS: metroNIDAZOLE 500 MG/100 ML BAG IV SCH (06:08)
[2021-06-16] MEDS: HEPARIN SOD 5,000 UNIT/0.5 ML VIAL SQ SCH ×3 (06:08→21:19)
--- NOTE | 2021-06-16 07:38 | XRay Report ---
XR chest 1V portable CLINICAL HISTORY: Follow-up bilateral airspace opacities. 06/14/2021 COMPARISON STUDY: No previous studies for comparison. TECHNIQUE: 1 view of the chest FINDINGS: Single frontal view of the chest demonstrates the cardiomediastinal silhouette to be within normal li mits. The patient appears in a more upright position with slight interval decrease in bilateral airsp kita opacities. There is persistent left lower lobe atelectasis/collapse. There is blunting left costo phrenic angle representing left pleural effusion. No definite right pleural effusion. There is no emani dence for vascular congestion. There is no acute osseous pathology. There is evidence for moderate si ze hiatal hernia. IMPRESSION: Slight interval decrease in bilateral airspace opacities. Persistent left lower lobe atel ectasis/collapse and left pleural effusion. ACT 112: Negative or not required by law. Electronically signed by: Salomón Pierre M.D. 06/16/2021 7:36 AM
[2021-06-16] MEDS ORDERED: D5W AND 1/2NSS 1,000 ML IV SCH (08:00)
[2021-06-16] MEDS: PHENYLEPHRINE HCL 20 MG in DEXTROSE 5% 500 ML IV SCH ×2 (08:01→22:40)
[2021-06-16] MEDS ORDERED: METOPROLOL TARTRATE 1 MG/ML VIAL IV STA (08:03)
[2021-06-16] MEDS: CEFEPIME 2,000 MG in SYRINGE 0 ML IV SCH (08:04)
[2021-06-16] MEDS: THIAMINE HCL 500 MG in SODIUM CHLORIDE 0.9% 50 ML IV SCH (08:05)
[2021-06-16] MEDS ORDERED: METOPROLOL TARTRATE 1 MG/ML VIAL IV ONE (08:08)
[2021-06-16] MEDS: LEVOTHYROXINE SODIUM 50 MCG in SYRINGE 0 ML IV SCH (08:37)
[2021-06-16] MEDS ORDERED: HYDROCORTISONE SOD 50 MG in SYRINGE 0 ML IV SCH (09:00)
[2021-06-16] MEDS ORDERED: NALOXONE HCL 0.4 MG/1 ML VIAL/CARP IV STA ×2 (09:15→12:27)
--- NOTE | 2021-06-16 09:32 | Critical Care Progress Note ---
Date of Service June 16, 2021 Assessment & Plan (1) Sepsis with acute respiratory failure and septic shock: (2) ARDS (adult respiratory distress syndrome): (3) Pancreatitis: (4) Hypothyroid: Plan: 81-year-old female with a history of recurrent pancreatitis presenting to the hospital with septic shock and ARDS. She was found to have pancreatitis. Was also in A. fib with RVR and was cardioverted. Extubated 06/13/2021 Neurologic: Delirium:-Bouts of agitated delirium mixed with passive delirium Pulmonary: --Acute hypoxic respiratory failure Secondary to multilobar pneumonia likely secondary to aspiration Patient self extubated 06/13/2021 Continue with O2 supplementation to keep oxygen saturation between 90-92% Patient will benefit from incentive spirometry but unfortunately her mental s tatus is not good to follow commands Cardiovascular: --S/p shock Likely from sepsis Off vasopressors. On stress dose steroids. We will taper it off gradually --A. fib with RVR Continue with amiodarone drip 2D echo 06/12/2021: severe LVH. Aortic valve sclerosis of moderate degree. RVSP of 50 to 60 mmHg Gastrointestinal: --Pancreatitis MRCP 06/10/2021 with findings of acute mild pancreatitis. No biliary ductal dilation or biliary filling defects. Large hiatal hernia. Lipase continues to improve. Gastroenterology consulted for pancreatitis. Triglycerides 81(within normal limit) possible autoimmune pancreatitis. Renal: -- CRUZ--> improving Likely from hypotension Improving Monitor BUN/creatinine Avoid nephrotoxic medications Strict ins and outs Infectious disease: --Aspiration pneumonia Plan as above Procalcitonin 13.7--> 60.98--> 40.2 Blood cultures, urinalysis and sputum culture negative to date Will monitor for necrotizing pancreatitis. Continue cefepime and Flagyl. Hematologic: No DVT seen on ultrasound evidence. Endocrine: --Hypothyroidism TSH 1.9 On IV levothyroxine 50 mcg given n.p.o. status. She is normally on 88 mcg p.o. of levothyroxine. --Prophylaxis VTE: Protonix GI: Heparin Lines: Peripheral, positive Cain Diet: N.p.o. Plan: In/out: Negative 4 mL, urine output 1550 Chest x-ray from today shows improvement in infiltrate compared to before Patient has been n.p.o. for almost 6 days now I do not think patient is capable of eating anything by mouth We will put NG tube today and start tube feeds Overall mental status of the patient still puts her at high risk for aspiration and reintubation Patient does have cough but she is unable to bring anything up She did have an episode of vomit when they were trying to suction her. For the severe somnolence I gave the patient 1 mg of Narcan and she became more alert after that This was followed by another 0.5 mg of Narcan I do think patient is going in and out of agitated delirium to passive delirium For hyponatremia we will give her D5 half at 50 mL an hour for 1 L We will consider Lasix later if need be Continue with antibiotics. If there is any worsening in the respiratory status, will intubate the patient I have personally spent 35 minutes of critical care time in the direct management of this patient. This is a life/limb threatening event. This includes time spent evaluating patient, direct bedside care, chart review, placing orders, interpretation of diagnostic studies, discussion with consultants, patient, and family members, as well as other required patient management activities. This time is exclusive of all separately billable procedures, and teaching time and separate from and in addition to any other critical care service time. Thank you for allowing us to participate in the care of this patient. Admission and Anticipated Discharge Date Admission Date: June 10, 2021 Subjective Patient seen and examined at bedside. No acute distress Patient was very somnolent at the time of examination She had gotten 2 mg of Dilaudid later last evening Pulmonary she went into A. fib with RVR she was given 5 mg of metoprolol and started on amiodarone drip T-max 38.1 Review of Systems Review of Systems: Unobtainable due to mental health condition and Unobtainable due to endotracheal tube Physical Exam Physical Exam: Constitutional: No acute distress HEENT: EOMI, PERRLA Respiratory system: Decreased air entry bilaterally, no wheeze, no rhonchi, positive crackles bilateral lower lobes CVS: S1-S2 positive, no murmurs or gallops Abdomen: Soft, nontender, nondistended, positive bowel sounds x4 Extremities: +2 pulses bilaterally radialis/ dorsalis pedis, no cyanosis, no edema Neuro: Somnolent, not following commands Psych: Unable to assess G/U: Positive Cain Skin: no rashes, warm and dry Lymphatic: no cervical or axillary lymphadenopathy Results & Data Results & Data ([facility]) Vital Signs (Past 12 Hours) Vital Signs Temp Pulse Resp BP Pulse Ox 06/16/21 08:11 136 H 122/99 06/16/21 06:00 36.6 C 96 H 30 H 142/82 H 94 06/16/21 05:00 36.9 C 91 H 25 H 142/66 H 94 06/16/21 04:00 86 21 136/75 90 06/16/21 03:00 84 20 138/64 93 06/16/21 02:00 84 20 142/61 H 94 06/16/21 01:00 97 H 28 H 144/81 H 91 06/16/21 00:00 87 21 132/59 L 91 06/15/21 23:30 111 H 21 104/69 92 06/15/21 23:00 128 H 21 98/46 L 93 06/15/21 22:30 126 H 19 86/62 L 92 06/15/21 22:00 131 H 22 86/58 L 93 06/16/21 04:34 06/16/21 04:34 Coding Level of Care Code Critical Care 1st 30-74 mins Diagnoses Sepsis with acute respiratory failure and septic shock A41.9; R65.21; J96.00 ARDS (adult respiratory distress syndrome) J80 Pancreatitis K85.00 Acute pancreatitis complication: unspecified Chronicity: acute Pancreatitis type: idiopathic Hypothyroid E03.9 Time Spent (min) 35 (1) Pancreatitis Acute pancreatitis complication: unspecified Chronicity: acute Pancreatitis type: idiopathic Qualified Code(s): K85.00 - Idiopathic acute pancreatitis without necrosis or infection
[2021-06-16] MEDS ORDERED: ACETAMINOPHEN 1,000 MG/100 ML VIAL IV PRN (10:59)
[2021-06-16 11:03] LABS: Folate (Folic Acid) 16.4 ng/ml (>5.38)
--- NOTE | 2021-06-16 11:08 | Hospitalist Progress Note ---
Date of Service June 16, 2021 Assessment & Plan (1) Sepsis with acute respiratory failure and septic shock: Plan: This patient is in 81 y/o WF with a PMHx of Hypothyroidism and recurrent pancreatitis admitted 06/10 with acute pancreatitis (Lipase [id number])-- recurrent issues without obvious cause, suspected idiopathic pancreatitis versus autoimmune-daughter reports that this is patient's 12th episode of pancreatitis in her lifetime Previously had gallbladder sludge but patient had declined to have cholecystectomy several years ago and gallbladder ultrasound here again with gallbladder sludge She had EUS which showed pancreatic head cyst in 2018 but then did not return for follow-up EUS at [facility] as planned [address] of A/P: pancreatitis without cyst/pseudocyst and ductal dilation LFT's initially WNL and then only mild elevation in AST after that, total bilirubin normal MRCP: pancreatitis without cyst/pseudocyst/abscess or ductal dilation Triglyceride level WNL: 28 No evidence of hypercalcemia Patient does not drink ETOH-confirmed with both daughter and (as per floor care specialist resident) Procalcitonin peaked at 60 and is now continues to trend downward to 23 - seen by GI early on in the course of admission and plan was for EUS as OP with Dr. Mclain - Patient did not tolerate clear liquids-- had increased pain and nausea with multiple bouts of emesis which led to aspiration pneumonitis, hypoxia, as well as rapid atrial fibrillation and profound hypotension requiring emergent DC cardioversion and emergent intubation and was transferred to the ICU on the night of 06/11 -Chest x-ray consistent with aspiration pneumonia and she had bronchoscopy to clear out the lungs by pulmonology Acute respiratory failure with hypoxia secondary to ARDS plus some volume overload -She was also started on IV amiodarone and was started on 3 pressors and eventually stabilized, however now back on phenylephrine on 06/15 for rapid atrial fibrillation causing hypotension -Was been weaned off all vasopressors except weaning IV hydrocortisone She self extubated on 06/13 but remains significantly encephalopathic-severely agitated, not able to follow commands or answer questions appropriately, requiring IV Haldol at times On 06/16 is spiking fevers -Change cefepime and metronidazole to Zosyn for aspiration pneumonia given new fevers on 06/16 -Avoid opioids as some of her lethargy did improve with Narcan -Was on stress dose steroids with hydrocortisone which is now being weaned off- accounts somewhat for leukocytosis -Remains n.p.o. while quite encephalopathic-start NG tube on 06/16 for enteral feeds -Continue to monitor urine output, blood pressures -Monitor CBC, CMP Appreciate floor care specialist management -Follow chest x-ray -Getting IV Lasix periodically for diuresis -Continue supplemental O2 and wean off as able to-remains on 4 L NC, high risk for reintubation (2) Atrial fibrillation with RVR: Plan: - Likely sepsis driven due to catecholamine release -Echocardiogram here with hyperdynamic LV, severe LVH, elevated RVSP at 50-60 mmHg -With profound hypotension as above requiring urgent DC cardioversion earlier in her hospital stay -Amiodarone drip was then discontinued, however restarted on 06/15 for recurrent rapid atrial fibrillation and hypotension -Is on phenylephrine for hypotension associated with rapid atrial fibrillation- wean off as able to -Will likely need anticoagulation in the near future if continues in paroxysmal atrial fibrillation Continue to monitor on telemetry -Continue to keep electrolytes replaced (3) Encephalopathy acute: Plan: Profound, after self extubation, was continuing to be quite agitated as per nursing staff and trying to pull out her tubes and lines, is shouting out things that do not make sense, not able to follow commands Since 06/15, she is less agitated and weaned off Precedex drip, but continues to be minimally interactive, does not follow commands, does not speak most of the time when asked questions Question if there is some Wernicke's encephalopathy given recurrent pancreatitis, may have poor absorption in the gut and may be nutritionally deficient-treating with high-dose IV thiamine -Continue to treat underlying inflammatory and infectious issues as above with antibiotics -Continue with IV Haldol as needed -Avoidance of opioids now -Appreciate psychiatry consultation -Continue IV thiamine -Consider imaging of the brain if no improvement although do not suspect stroke as no focal neurologic deficits -Ammonia level normal at 30 -Ensure she is moving her bowels -Continue to treat hypoxia with supplemental O2 (4) Hypothyroid: Plan: TSH here normal at 1.9 Continue IV levothyroxine for now while n.p.o. (5) Acute pancreatitis: Plan: As above, idiopathic versus autoimmune? This is apparently her 12th episode of pancreatitis as per her daughter She is noted to not have any alcohol history which is confirmed by family however her MCV is quite elevated without anemia which may suggest underlying liver disease although synthetic function normal and liver appears normal on imaging Possibly secondary to gallbladder sludge Also had pancreatic cyst seen on EUS in 2018-this needs repeat EUS for follow-up in 4 weeks after discharge Abdomen does not seem to be tender on examination although she is not able to relay pain-avoiding opioids as above for encephalopathy (6) Hiatal hernia: Plan: Large hiatal hernia with approximately half the stomach located in the thoracic cavity noted on CT abdomen/pelvis Continues on IV Protonix here once daily (7) Aspiration pneumonia: Plan: As above, continues with nonproductive cough, poor cough response, remains hypoxic Chest x-ray with left lower lobe collapse and pleural effusion but slightly improved from previous Procalcitonin trending downward, now with fever again Leukocytosis likely secondary to stress dose steroids but could be from worsening infection Discontinue cefepime and metronidazole and starting Zosyn on 06/16 Monitor chest x-ray and oxygenation NG tube placed for enteral feeds Keep n.p.o. (8) CRUZ (acute kidney injury): Plan: With creatinine elevated to 1.68 at peak and now improved to 1.1 Likely secondary to ATN from hypotension and septic shock She has making urine, Cain catheter remains in place Follow BMP Renally dose medications (9) Fever: Plan: As above (10) Hypercholesterolemia: Plan: Holding home krill oil (11) Hypertension: Plan: With hypotension as above Giving IV metoprolol scheduled for rapid atrial fibrillation rate control (12) Macrocytosis: Plan: B12 and folate normal No history of alcohol use Synthetic liver function seems normal Question if has early MDS? Follow as an outpatient (13) Hypernatremia: Plan: Sodium creeping up today at 148 Started on D5 half-normal saline x1 L Follow BMP Plan: DVT prophylaxis Heparin SQ Disposition-continued stay in the ICU, prognosis remains guarded Admission and Anticipated Discharge Date Admission Date: June 10, 2021 Subjective Patient went into rapid atrial fibrillation yesterday evening and night and became hypotensive requiring phenylephrine. She was also placed on amiodarone drip. She is febrile this morning. She was given Dilaudid overnight for pain and then was given Narcan this morning by the floor care specialist and did wake up quite a bit. She remained significantly encephalopathic this morning would not answer any my questions and continue to sit up in bed and hold her head in her hands. She would not follow any commands but was moving all extremities Review of Systems Review of Systems: Unobtainable due to cognitive status Physical Exam Constitutional: WD/WN, vitals as above average body habitus and + lethargic; no acute distress ENMT: Mouth: + oral mucosal abnormality (Dry) Neck: trachea midline, no thyromegaly Respiratory: normal respiratory effort and + cough (Moderate nonproductive cough); no labored breathing Auscultation: + crackles (Bibasilar) and + rhonchi (Bilateral) Cardiovascular: Rate/Rhythm: + tachycardic and + irregularly irregular Extremities: no edema Chest (Breasts): Chest: normal inspection of chest Gastrointestinal (Abdomen): normal bowel sounds, soft, nontender, no hepatosplenomegaly Musculoskeletal: Extremities: extremities normal to inspection; no cyanosis and no clubbing Skin: no rashes, warm and dry Neurologic: moves all extremities, awake and + confused; no focal motor deficits Would not speak or answer any of my questions, would not follow any commands, but was sitting up in bed holding her head in her hands and curled somewhat into a position Lymphatic: no lymphedema Results & Data Results & Data ([facility]) Vital Signs (Past 12 Hours) Vital Signs Temp Pulse Resp BP Pulse Ox 06/16/21 10:00 38.0 C H 127 H 20 103/65 93 06/16/21 09:00 132 H 18 132/71 88 L 06/16/21 08:11 136 H 122/99 06/16/21 08:00 100 H 16 138/86 89 L 06/16/21 07:00 89 20 142/69 H 93 06/16/21 06:45 92 H 20 94 06/16/21 06:00 36.6 C 96 H 30 H 142/82 H 94 06/16/21 05:00 36.9 C 91 H 25 H 142/66 H 94 06/16/21 04:00 86 21 136/75 90 06/16/21 03:00 84 20 138/64 93 06/16/21 02:00 84 20 142/61 H 94 06/16/21 01:00 97 H 28 H 144/81 H 91 06/16/21 00:00 87 21 132/59 L 91 06/15/21 23:30 111 H 21 104/69 92 Laboratory Results 06/16/21 06/16/21 06/16/21 Range/Units 04:34 04:34 04:34 WBC (4.8-10.8) K/uL RBC (4.2-5.4) M/uL Hgb (12.0-16.0) g/dL Hct (37-47) % MCV (80-100) fL MCH (25-34) pg MCHC (32-36) g/dL RDW Std Deviation (36.4-46.3) fL RDW Coeff of Estrellita (11.5-14.5) % Plt Count (130-400) K/uL MPV (7.4-10.4) fL Immature Gran % (Auto) % Neut % (Auto) % Lymph % (Auto) % [place] % (Auto) % Eos % (Auto) % Baso % (Auto) % Neut # (Auto) (1.4-6.5) K/uL Lymph # (Auto) (1.2-3.4) K/uL [place] # (Auto) (0.11-0.59) K/uL Eos # (Auto) (0-0.5) K/uL Baso # (Auto) (0-0.2) K/uL Immature Gran # (Auto) (0.00-0.02) K/uL PT (9.0-12.0) Seconds INR (0.9-1.1) Sodium 148 H (136-145) mmol/L Potassium 4.1 (3.5-5.1) mmol/L Chloride 119 H (98-107) mmol/L Carbon Dioxide 21 (21-32) mmol/L Anion Gap 8.0 (3-11) BUN 55 H (7-18) mg/dl Creatinine 1.15 (0.6-1.2) mg/dl Est Cr Clr Drug Dosing 35.1 ml/min Est GFR ( Amer) 51.3 ml/min Est GFR (Non-Af Amer) 44.3 ml/min BUN/Creatinine Ratio 48.2 H (10-20) Glucose 163 H (70-99) mg/dl Calcium 9.2 (8.5-10.1) mg/dl Phosphorus 3.1 D (2.5-4.9) mg/dl Magnesium 2.4 (1.8-2.4) mg/dl Total Bilirubin 0.4 (0.2-1) mg/dl Direct Bilirubin 0.1 (0-0.2) mg/dl AST 16 (15-37) U/L ALT 17 (12-78) U/L Alkaline Phosphatase 37 L (45-117) U/L Ammonia 30.0 (11-32) umol/L Total Protein 5.8 L (6.4-8.2) gm/dl Albumin 1.8 L (3.4-5.0) gm/dl Vitamin B12 1724 H (193-986) pg/ml Folate 16.40 (>5.38) ng/ml 06/16/21 06/16/21 06/15/21 Range/Units 04:34 04:34 23:32 WBC 20.54 H (4.8-10.8) K/uL RBC 4.35 (4.2-5.4) M/uL Hgb 14.1 (12.0-16.0) g/dL Hct 42.6 (37-47) % MCV 97.9 (80-100) fL MCH 32.4 (25-34) pg MCHC 33.1 (32-36) g/dL RDW Std Deviation 51.2 H (36.4-46.3) fL RDW Coeff of Estrellita 14.2 (11.5-14.5) % Plt Count 288 (130-400) K/uL MPV 9.7 (7.4-10.4) fL Immature Gran % (Auto) 0.5 % Neut % (Auto) 85.3 % Lymph % (Auto) 8.6 % [place] % (Auto) 5.6 % Eos % (Auto) 0.0 % Baso % (Auto) 0.0 % Neut # (Auto) 17.51 H (1.4-6.5) K/uL Lymph # (Auto) 1.77 (1.2-3.4) K/uL [place] # (Auto) 1.15 H (0.11-0.59) K/uL Eos # (Auto) 0.00 (0-0.5) K/uL Baso # (Auto) 0.01 (0-0.2) K/uL Immature Gran # (Auto) 0.10 H (0.00-0.02) K/uL PT 11.3 (9.0-12.0) Seconds INR 1.1 (0.9-1.1) Sodium 147 H (136-145) mmol/L Potassium 3.9 (3.5-5.1) mmol/L Chloride 119 H (98-107) mmol/L Carbon Dioxide 20 L (21-32) mmol/L Anion Gap 9.0 (3-11) BUN 57 H (7-18) mg/dl Creatinine 1.20 (0.6-1.2) mg/dl Est Cr Clr Drug Dosing 33.6 ml/min Est GFR ( Amer) 48.7 ml/min Est GFR (Non-Af Amer) 42.1 ml/min BUN/Creatinine Ratio 47.4 H (10-20) Glucose 140 H (70-99) mg/dl Calcium 9.4 (8.5-10.1) mg/dl Phosphorus 2.0 L (2.5-4.9) mg/dl Magnesium 2.3 (1.8-2.4) mg/dl Total Bilirubin (0.2-1) mg/dl Direct Bilirubin (0-0.2) mg/dl AST (15-37) U/L ALT (12-78) U/L Alkaline Phosphatase (45-117) U/L Ammonia (11-32) umol/L Total Protein (6.4-8.2) gm/dl Albumin (3.4-5.0) gm/dl Vitamin B12 (193-986) pg/ml Folate (>5.38) ng/ml 06/15/21 Range/Units 15:20 WBC (4.8-10.8) K/uL RBC (4.2-5.4) M/uL Hgb (12.0-16.0) g/dL Hct (37-47) % MCV (80-100) fL MCH (25-34) pg MCHC (32-36) g/dL RDW Std Deviation (36.4-46.3) fL RDW Coeff of Estrellita (11.5-14.5) % Plt Count (130-400) K/uL MPV (7.4-10.4) fL Immature Gran % (Auto) % Neut % (Auto) % Lymph % (Auto) % [place] % (Auto) % Eos % (Auto) % Baso % (Auto) % Neut # (Auto) (1.4-6.5) K/uL Lymph # (Auto) (1.2-3.4) K/uL [place] # (Auto) (0.11-0.59) K/uL Eos # (Auto) (0-0.5) K/uL Baso # (Auto) (0-0.2) K/uL Immature Gran # (Auto) (0.00-0.02) K/uL PT (9.0-12.0) Seconds INR (0.9-1.1) Sodium 145 (136-145) mmol/L Potassium 4.0 (3.5-5.1) mmol/L Chloride 118 H (98-107) mmol/L Carbon Dioxide 21 (21-32) mmol/L Anion Gap 6.0 (3-11) BUN 55 H (7-18) mg/dl Creatinine 1.15 (0.6-1.2) mg/dl Est Cr Clr Drug Dosing 35.1 ml/min Est GFR ( Amer) 51.3 ml/min Est GFR (Non-Af Amer) 44.3 ml/min BUN/Creatinine Ratio 48.0 H (10-20) Glucose 120 H (70-99) mg/dl Calcium 9.0 (8.5-10.1) mg/dl Phosphorus (2.5-4.9) mg/dl Magnesium (1.8-2.4) mg/dl Total Bilirubin (0.2-1) mg/dl Direct Bilirubin (0-0.2) mg/dl AST (15-37) U/L ALT (12-78) U/L Alkaline Phosphatase (45-117) U/L Ammonia (11-32) umol/L Total Protein (6.4-8.2) gm/dl Albumin (3.4-5.0) gm/dl Vitamin B12 (193-986) pg/ml Folate (>5.38) ng/ml PG Care Time/CCT Total # of Minutes Spent Total Time Spent with Patient: Total time spent is greater than 50% in coordination of care (as documented) at patient's floor/unit and/or counseling patient: Coding Level of Care Code 13105 Subseq Hosp Care Lvl 3 Diagnoses Sepsis with acute respiratory failure and septic shock A41.9; R65.21; J96.00 Atrial fibrillation with RVR I48.91 Encephalopathy acute G93.40 Hypothyroid E03.9 Acute pancreatitis K85.90 Acute pancreatitis complication: unspecified Pancreatitis type: unspecified pancreatitis type Hiatal hernia K44.9 Aspiration pneumonia J69.0 CRUZ (acute kidney injury) N17.9 Fever R50.9 Hypercholesterolemia E78.00 Hypertension I10 Hypertension type: essential hypertension Macrocytosis D75.89 Hypernatremia E87.0 (1) Hypertension Hypertension type: essential hypertension Qualified Code(s): I10 - Essential (primary) hypertension (2) Acute pancreatitis Acute pancreatitis complication: unspecified Pancreatitis type: unspecified pancreatitis type Qualified Code(s): K85.90 - Acute pancreatitis without necrosis or infection, unspecified
[2021-06-16] MEDS: PANTOprazole 40 MG in SYRINGE 0 ML IV SCH (11:11)
[2021-06-16 11:40] LABS: Dohle Bodies 1+
[2021-06-16] MEDS ORDERED: PIPERACILL/TAZOBAC CONSULT ACTIVE PRN (12:04)
[2021-06-16] MEDS: METOPROLOL TARTRATE 1 MG/ML VIAL IV SCH ×3 (13:18→23:41)
--- NOTE | 2021-06-16 14:07 | XRay Report ---
XR chest 1V portable HISTORY: Feeding tube placement COMPARISON: Chest 06/16/2021. FINDINGS: Feeding tube terminates in the body the stomach. Cardiomegaly and bilateral airspace opacit ies have slightly improved. There are small bilateral pleural effusions, unchanged. Calcified granulo ma again noted within the left lower lobe. IMPRESSION: 1. Feeding tube terminates in the body the stomach. 2. Slight improvement in the bilateral airspace opacities and small bilateral pleural effusions. ACT 112: Negative or not required by law. Electronically signed by: Thomas Charles M.D. 06/16/2021 2:06 PM
[2021-06-16] MEDS ORDERED: PIPERACILLIN/TAZOBACTAM 3.375 GM in DEXTROSE 5% 100 ML IV ONE (16:00)
[2021-06-16] MEDS: PEPTAMEN 1.5 CAL 1,000 ML BAG PO SCH (16:30)
[2021-06-16] MEDS: TUBE FEEDING WATER FLUSH GT SCH ×2 (16:30→20:10)
[2021-06-16] MEDS: PIPERACILLIN/TAZOBACTAM 3.375 GM in DEXTROSE 5% 100 ML IV SCH (20:10)
[2021-06-17] MEDS: TUBE FEEDING WATER FLUSH GT SCH ×4 (04:16→21:48)
[2021-06-17] MEDS: PIPERACILLIN/TAZOBACTAM 3.375 GM in DEXTROSE 5% 100 ML IV SCH ×3 (04:29→19:40)
[2021-06-17] MEDS: AMIODARONE / D5W 360 MG/200 ML BAG IV SCH (05:05)
[2021-06-17] MEDS: HEPARIN SOD 5,000 UNIT/0.5 ML VIAL SQ SCH (05:05)
[2021-06-17] MEDS: METOPROLOL TARTRATE 1 MG/ML VIAL IV SCH (05:08)
[2021-06-17 06:05] LABS: Hematocrit (blood only) 42.4 % (37-47); Hemoglobin 14.2 g/dL (12.0-16.0); Mean Corpuscular Hemoglobin 32.6 pg (25-34); Mean Corpuscular Hgb Conc 33.5 g/dL (32-36); Mean Corpuscular Volume 97.2 fL (80-100); Mean Platelet Volume 9.9 fL (7.4-10.4); Platelet Count 276 K/uL (130-400); RDW Coefficient of Variation 14.3 % (11.5-14.5); RDW Standard Deviation 51.3 fL (36.4-46.3); Red Blood Count 4.36 M/uL (4.2-5.4); White Blood Count 20.03 K/uL (4.8-10.8)
[2021-06-17 06:38] LABS: Basophils # (auto) 0.03 K/uL (0-0.2); Basophils % (auto) 0.1 %; Eosinophils # (auto) 0.01 K/uL (0-0.5); Immature Granulocytes # (auto) 0.28 K/uL (0.00-0.02); Immature Granulocytes % (auto) 1.4 %; Lymphocytes # (auto) 2.24 K/uL (1.2-3.4); Lymphocytes % (auto) 11.2 %; Monocytes # (auto) 1.08 K/uL (0.11-0.59); Monocytes % (auto) 5.4 %; Neutrophils # (auto) 16.39 K/uL (1.4-6.5); Neutrophils % (auto) 81.9 %
[2021-06-17 06:39] LABS: BUN Creatinine Ratio 46.8 (10-20); Calcium 9.4 mg/dl (8.5-10.1); Creatinine Clr Calc Pharmacy 43.8 ml/min; Est GFR (African American) 67.2 ml/min; Magnesium 2.4 mg/dl (1.8-2.4); Potassium 3.8 mmol/L (3.5-5.1)
[2021-06-17 06:53] LABS: Phosphorus 1.8 mg/dl (2.5-4.9)
--- NOTE | 2021-06-17 07:17 | XRay Report ---
XR chest 1V portable CLINICAL HISTORY: f/u COMPARISON STUDY: Chest radiograph June 16, 2021 at 1:30 PM. FINDINGS: Feeding tube is partially obscured. However, tip projects over the body of the stomach. The re is no pneumothorax. There are persistent small bilateral pleural effusions. Interstitial thickenin g and bilateral opacities persist. There is a hiatal hernia. Cardiomediastinal silhouette is stable. IMPRESSION: Persistent bilateral airspace opacities, interstitial thickening and small bilateral pleural effusion s. ACT 112: Negative or not required by law. Electronically signed by: Shiva Jones M.D. 06/17/2021 7:16 AM
[2021-06-17] MEDS ORDERED: POTASSIUM PHOS 3 MMOL/1 ML INFUSION IV STA (07:31)
[2021-06-17] MEDS ORDERED: POTASSIUM PHOSPHATE 15 MMOL in SODIUM CHLORIDE 0.9% 250 ML IV ONE (07:45)
[2021-06-17] MEDS ORDERED: METOPROLOL TARTRATE 1 MG/ML VIAL IV STA (08:03)
[2021-06-17] MEDS ORDERED: amLODIPine BESYLATE 5 MG TAB PO ONE (08:38)
[2021-06-17] MEDS ORDERED: HYDROCORTISONE SOD 50 MG in SYRINGE 0 ML IV SCH (09:00)
[2021-06-17] MEDS ORDERED: THIAMINE HCL 100 MG in SYRINGE 9 ML IV SCH (09:00)
[2021-06-17] MEDS ORDERED: NALOXONE HCL 0.4 MG/1 ML VIAL/CARP IV STA (09:34)
[2021-06-17] MEDS ORDERED: METOPROLOL TARTRATE 1 MG/ML VIAL IV PRN (09:34)
[2021-06-17] MEDS ORDERED: NALOXONE HCL 0.4 MG/1 ML VIAL/CARP ONE ×2 (09:39→09:42)
[2021-06-17] MEDS ORDERED: AMIODARONE 200 MG TAB PO ONE (10:06)
--- NOTE | 2021-06-17 10:49 | Electrocardiogram Report ---
Test Reason : Blood Pressure : / mmHG Vent. Rate : 082 BPM Atrial Rate : 227 BPM P-R Int : 000 ms QRS Dur : 116 ms QT Int : 356 ms P-R-T Axes : 006 -21 207 degrees QTc Int : 415 ms Sinus rhythm with pacs Marked ST abnormality, possible inferior subendocardial injury Abnormal ECG When compared with ECG of 15-JUN-2021 11:23, ST now depressed in Inferior leads ST now depressed in Lateral leads Confirmed by Cabrera Reno ([id number]) on 06/17/2021 10:49:29 AM Referred By: REFERRED SELF Confirmed By:Aubrey Reno
[2021-06-17] MEDS: ENOXAPARIN 80 MG/0.8 ML SYR SQ SCH ×2 (11:01→21:48)
[2021-06-17] MEDS: METOPROLOL TARTRATE 25 MG TAB PO SCH ×2 (11:01→19:42)
[2021-06-17] MEDS: PANTOprazole 40 MG in SYRINGE 0 ML IV SCH (11:02)
--- NOTE | 2021-06-17 11:59 | Neurology Consultation ---
Date of Consultation June 17, 2021 Assessment & Plan (1) Encephalopathy acute: Persistent encephalopathy characterized by periods of agitated and quiet delirium. Patient's encephalopathy is likely multifactorial and occurs in the context of sepsis with acute respiratory failure and septic shock, adult respiratory distress syndrome, and pancreatitis. She did have an episode of significant hypotension in the context of atrial fibrillation with rapid ventricular response requiring urgent DC cardioversion and pressor support. She may have an element of anoxic encephalopathy as well. However, she has not exhibited any anoxic myoclonus. I also see that she was febrile yesterday and her antimicrobial therapy was adjusted. As above, there are multiple acute medical issues that likely continue to contribute to this patient's encephalopathy and I am unable to completely exclude an element of anoxic encephalopathy given the episode of hypotension requiring pressor support. Her neurological examination is generally nonlocalizing. Also, she has not exhibited any myoclonus, seizure-like activity, abnormal movements, or posturing of the limbs. It would not be unreasonable to obtain some neuroimaging at this time. Would obtain a noncontrast CT of the head to exclude hemorrhage and other significant underlying structural abnormalities. A gadolinium enhanced brain MRI would be preferable although may not be appropriate at this time given her current medical status. Nonetheless, would attempt to also obtain brain MRI if able. MRI would be more sensitive for acute or subacute stroke. Would also recommend obtaining a bedside EEG to screen for subclinical seizure activity although clinical suspicion low. I do not have any specific therapeutic recommendations to make for this patient at this point in time. Continue current supportive medical care. History of Present Illness Reason for Consultation: Encephalopathy Requesting Physician: Jeaneth Parmar DO Attending Physician: Yovana Ritchie MD History of Present Illness The patient is an 81-year-old female who presented to the emergency department June 10, 2021 with a chief complaint of abdominal pain. She was admitted to the [facility] with a diagnosis of acute pancreatitis. Her condition deteriorated due to development of acute respiratory failure and septic shock she was transferred to the intensive care unit on June 12. She was seen by psychiatry at that time for assistance with management of her delirium and assessment of decision-making capacity. She self extubated on June 13. She has been receiving antimicrobial therapy. She has remained encephalopathic with periods of both agitated and quiet delirium. Recent issues as identified by the critical care team include sepsis with acute respiratory failure and septic shock, adult respiratory distress syndrome, and pancreatitis. Patient's hospitalization was further complicated by atrial fibrillation with rapid ventricular response and hypotension requiring DC cardioversion and pressor support. Patient is currently encephalopathic and is unable to provide any information regarding her history of present illness or past medical history. Allergies Allergy/AdvReac Type Severity Reaction Status Date / Time bee venom protein (honey bee) Allergy Severe HAS AN Verified 06/10/21 19:10 EPIPEN FOR REACTIONS latex Allergy Intermediate HIVES Verified 06/10/21 19:10 Iodinated Contrast Media Allergy Mild RASH Verified 06/10/21 19:10 Home Medications Medication Instructions Recorded Confirmed Type cyanocobalamin (vitamin B-12) 1,000 mcg PO QAM tab 02/27/19 06/10/21 History 1,000 mcg tablet,extended release cyclosporine 0.05 % eye drops in a 1 drp OPB Q12H 03/26/19 06/10/21 History dropperette (Restasis) epinephrine 0.3 mg/0.3 mL 0.3 mg IM DIRECTED PRN 03/26/19 06/10/21 History injection, auto-injector (EpiPen) multivitamin with minerals 1 tab PO QAM 03/26/19 06/10/21 History metronidazole 0.75 % topical cream 1 appln TOP DAILY PRN 12/19/19 06/10/21 History ascorbate calcium (vitamin C) 500 500 mg PO DAILY #30 tab 12/30/19 06/10/21 Rx mg tablet cholecalciferol (vitamin D3) 125 125 mcg PO DAILY #30 cap 12/30/19 06/10/21 Rx mcg (5,000 unit) capsule coenzyme Q10 200 mg capsule 200 mg PO DAILY #30 cap 12/30/19 06/10/21 Rx cranberry fruit concentrate 250 mg 250 mg PO DAILY #90 tab 12/30/19 06/10/21 Rx chewable tablet (Azo Cranberry) echinacea 400 mg capsule 400 mg PO DAILY #90 cap 12/30/19 06/10/21 Rx krill oil 500 mg capsule 500 mg PO DAILY #30 cap 12/30/19 06/10/21 Rx lutein 25 mg-zeaxanthin 5 mg 1 cap PO DAILY #30 cap 12/30/19 06/10/21 Rx capsule magnesium 250 mg tablet 325 mg PO DAILY tab 06/09/20 06/10/21 History levothyroxine 88 mcg tablet 88 mcg PO QAM #90 tab 09/01/20 06/10/21 Rx (Synthroid) melatonin 5 mg capsule 10 mg PO HS #30 cap 04/08/21 06/10/21 Rx Patient History Medical History Acute pancreatitis ARDS (adult respiratory distress syndrome) Arthritis Hiatal hernia Hypertension Hypothyroid Hypothyroidism Lyme disease Macrocytosis Recurrent pancreatitis Surgical History H/O cataract extraction S/P bunionectomy right foot X 2 S/P tonsillectomy and adenoidectomy age 14 years Family History Mother Emphysema lung Father Myocardial infarction Hypertension Denies family history of Colon cancer Ovarian cancer Prostate cancer Autoimmune disease Pancreatitis Breast cancer Social History Smoking Status: Never smoker Second Hand Exposure: No; Hx Alcohol Use: No Hx Substance Use: No Preferred Language: [place] Communication Ability: Impaired 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 Beliefs That Will Affect Care: None marital status: Current Living Situation: Spouse Current Living Situation Comment: lives with in [place] 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 Other Information That Helps Us Care for You: No other: 4 kids Feels Safe at Home: Yes Safety Concerns: Feels Safe At This Time Childhood Exposure to Second-Hand Smoke: Yes Dental Care, Regularly: Yes Physical Activity Frequency: Does not Exercise Seatbelt Use: always Sunscreen Use: No Assistive Devices: Oxygen - Continuous Review of Systems Review of Systems: Unobtainable due to reduced consciousness Exam (Neuro) Physical Exam: The patient is a thin elderly female. Patient is sitting up partially in bed in the intensive care unit, head off the pillow, sitting relatively motionless, nonagitated at this time. She is lethargic to obtunded. She does not answer questions pertaining to orientation. Memory cannot be evaluated. She is fairly inattentive. Patient did cry out "ouch" when I attempted to perform a plantar reflex. I said "I am sorry" and she responded with "no you are not." She does not follow commands or answer questions and I am otherwise unable to fully assess higher integrative/cognitive functioning in this patient. Visual conroy and acuity cannot be assessed. Patient exhibits significant forced eyelid closure although both pupils are round, about 3 mm in size, and equally reactive to light. No gaze preference or deviation. No nystagmus. Blink reflex is intact. Hearing cannot be reliably assessed. Shoulder shrug and movement of the tongue and palate cannot be reliably assessed. A full sensory examination cannot be completed although patient does withdraw all 4 limbs equally to noxious stimulation. Deep tendon reflexes are intact and symmetric. Plantar responses are downgoing bilaterally. Testing of coordination such as [id number] and [id number] cannot be tested on this patient. Patient does not cooperate adequately for direct ophthalmoscopic examination. Carotid pulses normal bilaterally, no bruits to auscultation. Gait and station cannot be tested. Full muscle strength testing cannot be completed on this patient although she does move all 4 limbs symmetrically and withdraws them to stimulation. She does not display obvious hemiparesis or paraparesis. Muscle tone normal throughout, no rigidity, spasticity or abnormal posturing. No atrophy or abnormal movements observed. No dyskinesias or tremors. Results & Data ([facility]) Vital Signs (Past 12 Hours) Vital Signs Temp Pulse Resp BP Pulse Ox 06/17/21 09:00 37.4 C 64 20 153/83 H 96 06/17/21 08:18 72 182/96 H 06/17/21 08:00 37.3 C 74 23 182/96 H 96 06/17/21 07:00 37.3 C 76 23 176/84 H 95 06/17/21 06:00 37.2 C 68 24 164/75 H 95 06/17/21 05:00 37.2 C 71 24 166/83 H 95 06/17/21 04:00 37.2 C 68 22 159/75 H 96 06/17/21 03:00 37.1 C 70 31 H 179/89 H 93 06/17/21 02:00 37.1 C 73 21 169/85 H 94 06/17/21 01:00 37.2 C 75 24 178/95 H 96 06/17/21 00:00 37.3 C 73 25 H 175/79 H 95 Laboratory Results WBC 20.03, hemoglobin 14.2, hematocrit 42.4, platelet count 276, sodium 147, potassium 3.8, BUN 43, creatinine 0.92, glucose 153, calcium 9.4, magnesium 2.4, ammonia 30.0, vitamin B12 1724, TSH 1.910 SARS-CoV-2 PCR negative. Diagnostic Findings Chest x-ray completed earlier today reveals persistent bilateral airspace opacities, interstitial thickening, and small bilateral pleural effusions. Lower extremity Doppler ultrasound completed June 12 was unremarkable. Cholangiopancreatography completed June 10 was consistent with mild acute pancreatitis. Patient has not had any specific neuroimaging completed such as CT of the head or brain MRI. Electrocardiogram completed yesterday revealed sinus rhythm with PACs. Electrocardiogram completed June 15 revealed a sinus rhythm with premature supraventricular complexes. An echocardiogram completed June 12, 2021 revealed a hyperdynamic left ventricle, severe concentric left ventricular hypertrophy, mildly dilated left atrium, mildly dilated right atrium, aortic valve sclerosis of moderate severity. Coding Level of Care Code 19513 Initial Inpt Care Lvl 3 Diagnoses Encephalopathy acute G93.40
[2021-06-17] MEDS ORDERED: METOPROLOL TARTRATE 1 MG/ML VIAL IV SCH (12:00)
--- NOTE | 2021-06-17 12:59 | Critical Care Progress Note ---
Date of Service June 17, 2021 Assessment & Plan (1) Sepsis with acute respiratory failure and septic shock: (2) ARDS (adult respiratory distress syndrome): (3) Pancreatitis: (4) Hypothyroid: Plan: 81-year-old female with a history of recurrent pancreatitis presenting to the hospital with septic shock and ARDS. She was found to have pancreatitis. Was also in A. fib with RVR and was cardioverted. Extubated 06/13/2021 Neurologic: Delirium:-Bouts of agitated delirium mixed with passive delirium CT head 06/17/2021 negative Pulmonary: --Acute hypoxic respiratory failure Secondary to multilobar pneumonia likely secondary to aspiration Patient self extubated 06/13/2021 Continue with O2 supplementation to keep oxygen saturation between 90-92% Patient will benefit from incentive spirometry but unfortunately her mental status is not good to follow commands Cardiovascular: --Hypertension On amlodipine as well as metoprolol --S/p shock Likely from sepsis Off vasopressors. S/p stress dose steroids/hydrocortisone --A. fib with RVR S/p amiodarone drip. On p.o. amiodarone [id number]: 4 2D echo 06/12/2021: severe LVH. Aortic valve sclerosis of moderate degree. RVSP of 50 to 60 mmHg Gastrointestinal: --Pancreatitis MRCP 06/10/2021 with findings of acute mild pancreatitis. No biliary ductal dilation or biliary filling defects. Large hiatal hernia. Lipase continues to improve. Gastroenterology consulted for pancreatitis. Triglycerides 81(within normal limit) possible autoimmune pancreatitis. --Large hiatal hernia This does predispose the patient to aspiration Renal: -- CRUZ--> improving Likely from hypotension Improving Monitor BUN/creatinine Avoid nephrotoxic medications Strict ins and outs Infectious disease: --Aspiration pneumonia Plan as above Procalcitonin 13.7--> 60.98--> 40.2 Blood cultures, urinalysis and sputum culture negative to date Will monitor for necrotizing pancreatitis. On Zosyn Hematologic: No DVT seen on ultrasound evidence. Endocrine: --Hypothyroidism TSH 1.9 On IV levothyroxine 50 mcg given n.p.o. status. She is normally on 88 mcg p.o. of levothyroxine. --Prophylaxis VTE: Therapeutic Lovenox GI: Protonix Lines: Peripheral, positive Cain Diet: Tube feeds Plan: In/out: +1330, urine output 850 Patient is restrained as when she does wake up she tries to reach out for the NGT She is saturating 95% on 4 L nasal cannula Aggressive suctioning has been going on to suction the phlegm Patient was given total 1.4 mg of Narcan yesterday. 1 mg of Narcan was given today as well Hypophosphatemia being replaced Patient's Jens vas score is 4, will start the patient on therapeutic Lovenox For her mental status CT head was negative Consideration for MRI will be made if there is no improvement in the next 24-48 hours Neurology has been consulted I have personally spent 35 minutes of critical care time in the direct management of this patient. This is a life/limb threatening event. This includes time spent evaluating patient, direct bedside care, chart review, placing orders, interpretation of diagnostic studies, discussion with consultants, patient, and family members, as well as other required patient management activities. This time is exclusive of all separately billable procedures, and teaching time and separate from and in addition to any other critical care service time. Thank you for allowing us to participate in the care of this patient. Admission and Anticipated Discharge Date Admission Date: June 10, 2021 Subjective Seen and examined at bedside. No acute distress Patient did not have the need to use any sedating or haloperidol for more than 24 hours Unfortunately patient is again very somnolent and not answering questions T-max 37.6 Review of Systems Review of Systems: Unobtainable due to reduced consciousness Physical Exam Physical Exam: Constitutional: No acute distress HEENT: EOMI, PERRLA Respiratory system: Decreased air entry bilaterally, no wheeze, no rhonchi, positive crackles bilateral lower lobes CVS: S1-S2 positive, no murmurs or gallops Abdomen: Soft, nontender, nondistended, positive bowel sounds x4 Extremities: +2 pulses bilaterally radialis/ dorsalis pedis, no cyanosis, no edema Neuro: Somnolent, not following commands Psych: Unable to assess G/U: Positive Cain Skin: no rashes, warm and dry Lymphatic: no cervical or axillary lymphadenopathy Results & Data Results & Data ([facility]) Vital Signs (Past 12 Hours) Vital Signs Temp Pulse Resp BP Pulse Ox 06/17/21 09:00 37.4 C 64 20 153/83 H 96 06/17/21 08:18 72 182/96 H 06/17/21 08:00 37.3 C 74 23 182/96 H 96 06/17/21 07:00 37.3 C 76 23 176/84 H 95 06/17/21 06:00 37.2 C 68 24 164/75 H 95 06/17/21 05:00 37.2 C 71 24 166/83 H 95 06/17/21 04:00 37.2 C 68 22 159/75 H 96 06/17/21 03:00 37.1 C 70 31 H 179/89 H 93 06/17/21 02:00 37.1 C 73 21 169/85 H 94 06/17/21 01:00 37.2 C 75 24 178/95 H 96 06/17/21 05:43 06/17/21 05:50 Coding Level of Care Code Critical Care 1st 30-74 mins Diagnoses Sepsis with acute respiratory failure and septic shock A41.9; R65.21; J96.00 ARDS (adult respiratory distress syndrome) J80 Pancreatitis K85.00 Acute pancreatitis complication: unspecified Chronicity: acute Pancreatitis type: idiopathic Hypothyroid E03.9 Time Spent (min) 35 (1) Pancreatitis Acute pancreatitis complication: unspecified Chronicity: acute Pancreatitis type: idiopathic Qualified Code(s): K85.00 - Idiopathic acute pancreatitis without necrosis or infection
--- NOTE | 2021-06-17 13:42 | CT Scan Report ---
CT head/brain wo con CLINICAL HISTORY: 81 years-old Female with encephalopathy. Acutely altered mental status TECHNIQUE: Multiple axial CT images of the head were obtained without contrast. A dose lowering tech nique was utilized adhering to the principles of ALARA. CT DOSE: 1147.63 mGy.cm COMPARISON: None. FINDINGS: No acute intracranial hemorrhage, midline shift, intracranial mass, hydrocephalus, territorial ischem ia or abnormal extra-axial collection. Age-related involutional changes. White matter hypodensities s uggest chronic microvascular ischemic disease. The study is mildly motion degraded. Cerebral vascular calcifications. The calvarium is intact. Numerous lucent foci of the occipital calvarium suggest probable arachnoid g ranulations. Partially imaged nasopharyngeal catheter is present. The paranasal sinuses, mastoid air cells, and middle ear cavities are clear. Prior bilateral lens repair. IMPRESSION: No acute intracranial abnormality. ACT 112: Negative or not required by law. The above report was generated using voice recognition software. It may contain grammatical, syntax o r spelling errors. Electronically signed by: Mk Kulkarni M.D. 06/17/2021 1:41 PM
[2021-06-17] MEDS ORDERED: Nursing to Pharmacy Communication SCH (17:00)
--- NOTE | 2021-06-17 17:09 | Electroencephalogram ---
EEG Procedure Note Date of Service June 17, 2021 Start / End Times Start Time: 2:32 PM End Time: 2:52 PM Referring Physician Arsenio Moya MD History Encephalopathy Home Medication List Medication Instructions Recorded Confirmed Type cyanocobalamin (vitamin B-12) 1,000 mcg PO QAM tab 02/27/19 06/10/21 History 1,000 mcg tablet,extended release cyclosporine 0.05 % eye drops in a 1 drp OPB Q12H 03/26/19 06/10/21 History dropperette (Restasis) epinephrine 0.3 mg/0.3 mL 0.3 mg IM DIRECTED PRN 03/26/19 06/10/21 History injection, auto-injector (EpiPen) multivitamin with minerals 1 tab PO QAM 03/26/19 06/10/21 History metronidazole 0.75 % topical cream 1 appln TOP DAILY PRN 12/19/19 06/10/21 History ascorbate calcium (vitamin C) 500 500 mg PO DAILY #30 tab 12/30/19 06/10/21 Rx mg tablet cholecalciferol (vitamin D3) 125 125 mcg PO DAILY #30 cap 12/30/19 06/10/21 Rx mcg (5,000 unit) capsule coenzyme Q10 200 mg capsule 200 mg PO DAILY #30 cap 12/30/19 06/10/21 Rx cranberry fruit concentrate 250 mg 250 mg PO DAILY #90 tab 12/30/19 06/10/21 Rx chewable tablet (Azo Cranberry) echinacea 400 mg capsule 400 mg PO DAILY #90 cap 12/30/19 06/10/21 Rx krill oil 500 mg capsule 500 mg PO DAILY #30 cap 12/30/19 06/10/21 Rx lutein 25 mg-zeaxanthin 5 mg 1 cap PO DAILY #30 cap 12/30/19 06/10/21 Rx capsule magnesium 250 mg tablet 325 mg PO DAILY tab 06/09/20 06/10/21 History levothyroxine 88 mcg tablet 88 mcg PO QAM #90 tab 09/01/20 06/10/21 Rx (Synthroid) melatonin 5 mg capsule 10 mg PO HS #30 cap 04/08/21 06/10/21 Rx Inpatient Medication List Enoxaparin Sodium (Enoxaparin 80 Mg/0.8 Ml Syr) 80 mg SQ Q12 SILVA Stop: 07/17/21 10:59 Last Admin: 11/04/21 11:01 Dose: 80 mg Documented by: [id number] Enteral Nutritional Formula (Peptamen 1.5 Sanjay 1,000 Ml Bag) 1,000 ml PO UD SILVA; Protocol Stop: 07/16/21 14:59 Last Admin: 06/16/21 16:30 Dose: 1,000 ml Documented by: [id number] Pantoprazole Sodium 40 mg/ (Syringe) 10 mls @ 5 mls/min IV DAILY@1100 SILVA Stop: 07/13/21 10:59 Last Admin: 06/17/21 11:02 Dose: 5 mls/min Documented by: [id number] Admin: 06/16/21 11:11 Dose: 5 mls/min Documented by: [id number] Admin: 06/15/21 11:00 Dose: 5 mls/min Documented by: [id number] Admin: 06/14/21 11:02 Dose: 5 mls/min Documented by: [id number] Admin: 06/13/21 13:24 Dose: 5 mls/min Documented by: [id number] Levothyroxine Sodium 50 mcg/ (Syringe) 2.5 mls @ 2 mls/min IV Q72H SILVA; Protocol Stop: 07/13/21 09:29 Last Admin: 06/16/21 08:37 Dose: 2 mls/min Documented by: [id number] Admin: 06/13/21 10:40 Dose: 2 mls/min Documented by: [id number] Thiamine HCl 100 mg/ Syringe 10 mls @ 2 mls/min IV QAM SILVA Stop: 07/17/21 08:59 Last Admin: 06/17/21 08:22 Dose: 2 mls/min Documented by: [id number] Piperacillin Sod/Tazobactam (Sod 3.375 gm/ Dextrose) 115 mls @ 28.75 mls/hr IV Q8H SILVA; Protocol Stop: 06/19/21 08:59 Last Infusion: 06/17/21 15:03 Dose: 0 mls/hr Documented by: [id number] Admin: 06/17/21 11:03 Dose: 28.8 mls/hr Documented by: [id number] Infusion: 06/17/21 08:29 Dose: 28.8 mls/hr Documented by: [id number] Admin: 06/17/21 04:29 Dose: 28.8 mls/hr Documented by: [id number] Infusion: 06/17/21 00:10 Dose: 0 mls/hr Documented by: [id number] Admin: 06/16/21 20:10 Dose: 28.8 mls/hr Documented by: [id number] Acetaminophen (Ofirmev) 1,000 mg in 100 mls @ 400 mls/hr IV Q8H PRN PRN Reason: Fever Stop: 06/19/21 10:58 Last Infusion: 06/16/21 11:35 Dose: 0 mls/hr Documented by: [id number] Admin: 06/16/21 11:10 Dose: 400 mls/hr Documented by: [id number] Metoprolol Tartrate (Metoprolol Tartrate 25 Mg Tab) 12.5 mg PO Q12 [facility] Stop: 07/17/21 10:59 Last Admin: 06/17/21 11:01 Dose: 12.5 mg Documented by: [id number] Metoprolol Tartrate (Metoprolol Tartrate 1 Mg/Ml Vial) 2.5 mg IV Q6H PRN PRN Reason: SBP > 160 Stop: 07/17/21 09:44 Last Admin: 06/17/21 16:56 Dose: 2.5 mg Documented by: [id number] Miscellaneous (Cyclosporine [Restasis]: Order Awaiting Action) 1 ea N/A QS [facility] Stop: 07/11/21 07:59 Last Admin: 06/14/21 08:32 Dose: 1 ea Documented by: [id number] Admin: 06/14/21 00:16 Dose: Not Given Documented by: [id number] Admin: 06/13/21 15:22 Dose: Not Given Documented by: [id number] Admin: 06/13/21 08:30 Dose: Not Given Documented by: [id number] Admin: 06/13/21 00:28 Dose: Not Given Documented by: [id number] Admin: 06/12/21 07:33 Dose: Not Given Documented by: [id number] Admin: 06/12/21 07:33 Dose: Not Given Documented by: [id number] Admin: 06/12/21 00:03 Dose: Not Given Documented by: [id number] Admin: 06/11/21 16:37 Dose: Not Given Documented by: [id number] Admin: 06/11/21 08:08 Dose: Not Given Documented by: [id number] Ondansetron HCl (Ondansetron Inj 2 Mg/Ml 2 Ml Vial) 4 mg IV Q6H PRN PRN Reason: Nausea Stop: 07/10/21 23:39 Last Admin: 06/15/21 08:15 Dose: 4 mg Documented by: [id number] Admin: 06/12/21 12:30 Dose: 4 mg Documented by: [id number] Admin: 06/11/21 00:21 Dose: 4 mg Documented by: [id number] Sterile Water (Tube Feeding Water Flush) 200 ml GT Q6H SILVA Stop: 07/16/21 15:14 Last Admin: 06/17/21 16:38 Dose: 200 ml Documented by: [id number] Admin: 06/17/21 08:23 Dose: 200 ml Documented by: [id number] Admin: 06/17/21 04:16 Dose: 200 ml Documented by: [id number] Admin: 06/16/21 20:10 Dose: 200 ml Documented by: [id number] Admin: 06/16/21 16:30 Dose: 200 ml Documented by: [id number] Discontinued Medications Acetaminophen (Acetaminophen 325 Mg Tab) 650 mg PO ONCE ONE Stop: 06/12/21 16:53 Last Admin: 06/12/21 17:30 Dose: 650 mg Documented by: [id number] Albuterol (Albut/Ipratrop 3mg/0.5mg Neb 3 Ml Vial) 3 ml NEB NOW STA Stop: 06/12/21 10:36 Last Admin: 06/12/21 11:19 Dose: 3 ml Documented by: [id number] Albuterol (Albut/Ipratrop 3mg/0.5mg Neb 3 Ml Vial) 3 ml NEB QIDR SILVA Stop: 07/12/21 12:59 Last Admin: 06/12/21 16:04 Dose: Not Given Documented by: [id number] Admin: 06/12/21 16:04 Dose: Not Given Documented by: [id number] Amiodarone HCl/Dextrose (Amiodarone 150mg / 100ml D5w) Confirm Administered Dose 150 mg IV .STK-MED ONE Stop: 06/12/21 12:22 Last Admin: 06/12/21 14:43 Dose: Not Given Documented by: [id number] Amiodarone HCl (Amiodarone 200 Mg Tab) 200 mg PO NOW ONE Stop: 06/17/21 10:07 Last Admin: 06/17/21 11:01 Dose: 200 mg Documented by: [id number] Amlodipine Besylate (Amlodipine Besylate 5 Mg Tab) 10 mg PO NOW ONE Stop: 06/17/21 08:39 Last Admin: 06/17/21 09:27 Dose: 10 mg Documented by: [id number] Enoxaparin Sodium (Enoxaparin Inj 40 Mg/0.4 Ml Syr) 40 mg SQ Q24H SILVA Stop: 07/11/21 05:59 Last Admin: 06/13/21 06:17 Dose: 40 mg Documented by: [id number] Admin: 06/12/21 06:05 Dose: 40 mg Documented by: [id number] Admin: 06/11/21 05:50 Dose: 40 mg Documented by: [id number] Furosemide (Furosemide 40 Mg/4 Ml Vial) 40 mg IV ONE ONE Stop: 06/12/21 09:16 Last Admin: 06/12/21 09:30 Dose: 40 mg Documented by: [id number] Furosemide (Furosemide 40 Mg/4 Ml Vial) Confirm Administered Dose 40 mg IV .[facility]- MED ONE Stop: 06/12/21 09:27 Last Admin: 06/12/21 09:30 Dose: 40 mg Documented by: [id number] Furosemide (Furosemide Inj 20 Mg/2 Ml Vial) 20 mg IV ONE ONE Stop: 06/13/21 14:07 Last Admin: 06/13/21 14:29 Dose: 20 mg Documented by: [id number] Furosemide (Furosemide Inj 20 Mg/2 Ml Vial) 20 mg IV 914 ONE Stop: 06/15/21 09:16 Last Admin: 06/15/21 11:00 Dose: 20 mg Documented by: [id number] Haloperidol Lactate (Haloperidol Lactate 5 Mg/Ml 1 Ml Vial) Confirm Administered Dose 5 mg .ROUTE .[facility]-MED ONE Stop: 06/13/21 09:51 Last Admin: 06/13/21 09:53 Dose: 5 mg Documented by: [id number] Haloperidol Lactate (Haloperidol Lactate 5 Mg/Ml 1 Ml Vial) 5 mg IV NOW STA Stop: 06/13/21 11:02 Last Admin: 06/13/21 12:09 Dose: Not Given Documented by: [id number] Haloperidol Lactate (Haloperidol Lactate 5 Mg/Ml 1 Ml Vial) Confirm Administered Dose 5 mg .ROUTE .[facility]-MED ONE Stop: 06/15/21 02:15 Last Admin: 06/15/21 02:21 Dose: 5 mg Documented by: [id number] Haloperidol Lactate (Haloperidol Lactate 5 Mg/Ml 1 Ml Vial) 5 mg IV NOW STA Stop: 06/15/21 02:19 Last Admin: 06/15/21 02:21 Dose: Not Given Documented by: [id number] Heparin Sodium (Porcine) (Heparin Sod 5,000 Unit/0.5 Ml Vial) 5,000 units SQ Q8 SILVA Stop: 07/14/21 05:59 Last Admin: 06/17/21 05:05 Dose: 5,000 units Documented by: [id number] Admin: 06/16/21 21:19 Dose: 5,000 units Documented by: [id number] Admin: 06/16/21 13:18 Dose: 5,000 units Documented by: [id number] Admin: 06/16/21 06:08 Dose: 5,000 units Documented by: [id number] Admin: 06/15/21 19:35 Dose: 5,000 units Documented by: [id number] Admin: 06/15/21 13:12 Dose: 5,000 units Documented by: [id number] Admin: 06/15/21 05:50 Dose: 5,000 units Documented by: [id number] Admin: 06/15/21 00:22 Dose: 5,000 units Documented by: [id number] Admin: 06/14/21 13:42 Dose: 5,000 units Documented by: [id number] Admin: 06/14/21 05:52 Dose: 5,000 units Documented by: [id number] Hydromorphone HCl (Hydromorphone Inj 1 Mg/Ml Syringe) 1 mg IV Q30M PRN PRN Reason: Pain Stop: 06/24/21 19:04 Last Admin: 06/10/21 19:16 Dose: 1 mg Documented by: [id number] Hydromorphone HCl (Hydromorphone Inj 0.5 Mg/0.5 Ml Syr) 0.5 mg IV Q3H PRN PRN Reason: Severe Pain (7,8,9,10) Stop: 06/24/21 23:39 Last Admin: 06/11/21 08:57 Dose: 0.5 mg Documented by: [id number] Admin: 06/11/21 05:51 Dose: 0.5 mg Documented by: [id number] Admin: 06/11/21 00:23 Dose: 0.5 mg Documented by: [id number] Hydromorphone HCl (Hydromorphone Inj 1 Mg/Ml Syringe) 1 mg IV Q3H PRN PRN Reason: Pain Stop: 06/25/21 09:59 Last Admin: 06/12/21 06:04 Dose: 1 mg Documented by: [id number] Admin: 06/12/21 02:03 Dose: 1 mg Documented by: [id number] Admin: 06/11/21 16:18 Dose: 1 mg Documented by: [id number] Admin: 06/11/21 13:10 Dose: 1 mg Documented by: [id number] Admin: 06/11/21 10:25 Dose: 1 mg Documented by: [id number] Hydromorphone HCl (Hydromorphone Inj 1 Mg/Ml Syringe) 1 mg IV NOW STA Stop: 06/11/21 17:49 Last Admin: 06/11/21 17:59 Dose: 1 mg Documented by: [id number] Hydromorphone HCl (Hydromorphone Inj 1 Mg/Ml Syringe) 1 mg IV Q2H PRN PRN Reason: Pain Stop: 06/25/21 09:59 Last Admin: 06/12/21 09:02 Dose: 1 mg Documented by: [id number] Hydromorphone HCl (Hydromorphone Inj 1 Mg/Ml Syringe) 1 mg IV Q3H PRN PRN Reason: Pain Stop: 06/26/21 12:59 Last Admin: 06/16/21 00:32 Dose: 1 mg Documented by: [id number] Admin: 06/15/21 19:35 Dose: 1 mg Documented by: [id number] Admin: 06/15/21 14:39 Dose: 1 mg Documented by: [id number] Admin: 06/15/21 11:03 Dose: 1 mg Documented by: [id number] Admin: 06/15/21 08:15 Dose: 1 mg Documented by: [id number] Admin: 06/15/21 02:21 Dose: 1 mg Documented by: [id number] Admin: 06/14/21 23:02 Dose: 1 mg Documented by: [id number] Admin: 06/14/21 19:56 Dose: 1 mg Documented by: [id number] Admin: 06/14/21 16:28 Dose: 1 mg Documented by: [id number] Admin: 06/14/21 03:27 Dose: 1 mg Documented by: [id number] Admin: 06/14/21 00:32 Dose: 1 mg Documented by: [id number] Admin: 06/13/21 19:32 Dose: 1 mg Documented by: [id number] Admin: 06/13/21 12:30 Dose: 1 mg Documented by: [id number] Sodium Chloride (Nss) 500 mls @ 999 mls/hr IV .Q31M STA Stop: 06/10/21 18:29 Last Infusion: 06/10/21 20:12 Dose: 0 mls/hr Documented by: [id number] Admin: 06/10/21 18:09 Dose: 999 mls/hr Documented by: [id number] Sodium Chloride (Nss 1000ml) 1,000 mls @ 999 mls/hr IV .Q1H1M ONE Stop: 06/10/21 22:35 Last Admin: 06/10/21 23:47 Dose: Not Given Documented by: [id number] Potassium Chloride/Sodium Chloride (Normal Saline W/20 Meq Kcl) 20 meq in 1,000 mls @ 150 mls/hr IV .Q6H40M SILVA Stop: 06/11/21 13:34 Last Infusion: 06/12/21 07:24 Dose: 0 mls/hr Documented by: [id number] Admin: 06/11/21 08:06 Dose: 150 mls/hr Documented by: [id number] Infusion: 06/11/21 07:26 Dose: 150 mls/hr Documented by: [id number] Admin: 06/11/21 00:45 Dose: 150 mls/hr Documented by: [id number] Dextrose/Lactated Ringer's (D5w And Lactated Ringers) 1,000 mls @ 100 mls/hr IV .Q10H SILVA Last Infusion: 06/12/21 15:39 Dose: 0 mls/hr Documented by: [id number] Infusion: 06/11/21 23:09 Dose: 0 mls/hr Documented by: [id number] Admin: 06/11/21 17:58 Dose: 125 mls/hr Documented by: [id number] Infusion: 06/11/21 17:58 Dose: 125 mls/hr Documented by: [id number] Admin: 06/11/21 10:23 Dose: 125 mls/hr Documented by: [id number] Prochlorperazine 10 mg/ (Syringe) 10 mls @ 5 mls/min IV ONE ONE Stop: 06/11/21 17:49 Last Admin: 06/11/21 18:12 Dose: 5 mls/min Documented by: [id number] Cefepime HCl 2,000 mg/ Syringe 20 mls @ 5 mls/min IV Q12H [facility]; Protocol Stop: 06/19/21 00:59 Last Admin: 06/13/21 13:31 Dose: Not Given Documented by: [id number] Admin: 06/13/21 01:21 Dose: 5 mls/min Documented by: [id number] Admin: 06/12/21 15:15 Dose: 5 mls/min Documented by: [id number] Admin: 06/12/21 01:32 Dose: 5 mls/min Documented by: [id number] Vancomycin HCl 1,750 mg/ (Sodium Chloride) 535 mls @ 200 mls/hr IV NOW ONE Stop: 06/12/21 03:40 Last Infusion: 06/12/21 04:46 Dose: 0 mls/hr Documented by: [id number] Admin: 06/12/21 01:31 Dose: 200 mls/hr Documented by: [id number] Magnesium Sulfate/Dextrose (Magnesium Sulfate / D5w) 1 gm in 100 mls @ 50 mls/hr IV ONE ONE Stop: 06/12/21 14:23 Last Admin: 06/12/21 15:07 Dose: Not Given Documented by: [id number] Vasopressin 20 units/ Sodium (Chloride) 101 mls @ 0 mls/hr IV .Q0M SILVA Stop: 07/12/21 12:59 Last Infusion: 06/14/21 09:06 Dose: 0 unit/min, 0 mls/hr Documented by: [id number] Infusion: 06/13/21 13:25 Dose: 0 unit/min, 0 mls/hr Documented by: [id number] Admin: 06/13/21 09:14 Dose: 0.04 unit/min, 12.1 mls/hr Documented by: [id number] Cosigned by: [id number] Infusion: 06/13/21 09:14 Dose: 0.04 unit/min, 12.1 mls/hr Documented by: [id number] Cosigned by: [id number] Infusion: 06/13/21 07:01 Dose: 0.04 unit/min, 12.1 mls/hr Documented by: [id number] Cosigned by: [id number] Admin: 06/13/21 05:20 Dose: 0.04 unit/min, 12.1 mls/hr Documented by: [id number] Cosigned by: [id number] Infusion: 06/13/21 04:49 Dose: 0.04 unit/min, 12.1 mls/hr Documented by: [id number] Cosigned by: [id number] Admin: 06/12/21 20:28 Dose: 0.04 unit/min, 12.1 mls/hr Documented by: [id number] Cosigned by: [id number] Infusion: 06/12/21 20:28 Dose: 0.04 unit/min, 12.1 mls/hr Documented by: [id number] Cosigned by: [id number] Infusion: 06/12/21 19:09 Dose: 0.04 unit/min, 12.1 mls/hr Documented by: [id number] Cosigned by: [id number] Admin: 06/12/21 12:45 Dose: 0.04 unit/min, 12.1 mls/hr Documented by: [id number] Cosigned by: [id number] Hydrocortisone Sodium (Succinate 100 mg/ Syringe) 2 mls @ 4 mls/min IV NOW ONE Stop: 06/12/21 13:01 Last Admin: 06/12/21 13:32 Dose: 4 mls/min Documented by: [id number] Metronidazole (Flagyl) 500 mg in 100 mls @ 100 mls/hr IV Q8H SILVA Stop: 06/22/21 13:29 Last Infusion: 06/16/21 07:10 Dose: 0 mls/hr Documented by: [id number] Admin: 06/16/21 06:08 Dose: 100 mls/hr Documented by: [id number] Infusion: 06/15/21 20:35 Dose: 0 mls/hr Documented by: [id number] Admin: 06/15/21 19:35 Dose: 100 mls/hr Documented by: [id number] Infusion: 06/15/21 14:57 Dose: 0 mls/hr Documented by: [id number] Admin: 06/15/21 13:11 Dose: 100 mls/hr Documented by: [id number] Infusion: 06/15/21 07:18 Dose: 0 mls/hr Documented by: [id number] Admin: 06/15/21 05:50 Dose: 100 mls/hr Documented by: [id number] Infusion: 06/14/21 20:54 Dose: 0 mls/hr Documented by: [id number] Admin: 06/14/21 19:54 Dose: 100 mls/hr Documented by: [id number] Infusion: 06/14/21 15:02 Dose: 0 mls/hr Documented by: [id number] Admin: 06/14/21 13:42 Dose: 100 mls/hr Documented by: [id number] Infusion: 06/14/21 07:23 Dose: 0 mls/hr Documented by: [id number] Admin: 06/14/21 05:51 Dose: 100 mls/hr Documented by: [id number] Infusion: 06/13/21 21:47 Dose: 0 mls/hr Documented by: [id number] Admin: 06/13/21 19:33 Dose: 100 mls/hr Documented by: [id number] Infusion: 06/13/21 14:33 Dose: 0 mls/hr Documented by: [id number] Admin: 06/13/21 13:24 Dose: 100 mls/hr Documented by: [id number] Infusion: 06/13/21 06:17 Dose: 0 mls/hr Documented by: [id number] Admin: 06/13/21 05:17 Dose: 100 mls/hr Documented by: [id number] Infusion: 06/12/21 21:28 Dose: 0 mls/hr Documented by: [id number] Admin: 06/12/21 20:28 Dose: 100 mls/hr Documented by: [id number] Infusion: 06/12/21 16:18 Dose: 0 mls/hr Documented by: [id number] Admin: 06/12/21 15:15 Dose: 100 mls/hr Documented by: [id number] Phenylephrine HCl 20 mg/ (Dextrose) 502 mls @ 23.795 mls/hr IV .Q21H6M [facility]; Protocol Stop: 07/12/21 13:29 Last Admin: 06/13/21 18:19 Dose: Not Given Documented by: [id number] Admin: 06/13/21 10:41 Dose: Not Given Documented by: [id number] Titration: 06/13/21 07:01 Dose: 0 mcg/kg/min, 0 mls/hr Documented by: [id number] Cosigned by: [id number] Admin: 06/13/21 02:56 Dose: Not Given Documented by: [id number] Titration: 06/13/21 01:01 Dose: 0.2 mcg/kg/min, 23.8 mls/hr Documented by: [id number] Titration: 06/12/21 23:29 Dose: 0.4 mcg/kg/min, 47.6 mls/hr Documented by: [id number] Titration: 06/12/21 22:16 Dose: 0.6 mcg/kg/min, 71.4 mls/hr Documented by: [id number] Cosigned by: [id number] Admin: 06/12/21 20:28 Dose: 0.8 mcg/kg/min, 95.2 mls/hr Documented by: [id number] Cosigned by: [id number] Titration: 06/12/21 19:17 Dose: 0.8 mcg/kg/min, 95.2 mls/hr Documented by: [id number] Cosigned by: [id number] Titration: 06/12/21 19:09 Dose: 0.8 mcg/kg/min, 95.2 mls/hr Documented by: [id number] Cosigned by: [id number] Titration: 06/12/21 16:19 Dose: 0.8 mcg/kg/min, 95.2 mls/hr Documented by: [id number] Titration: 06/12/21 16:00 Dose: 0.6 mcg/kg/min, 71.4 mls/hr Documented by: [id number] Titration: 06/12/21 15:31 Dose: 0.4 mcg/kg/min, 47.6 mls/hr Documented by: [id number] Titration: 06/12/21 15:11 Dose: 0.4 mcg/kg/min, 47.6 mls/hr Documented by: [id number] Admin: 06/12/21 12:30 Dose: 0.5 mcg/kg/min, 59.5 mls/hr Documented by: [id number] Cosigned by: [id number] Norepinephrine Bitartrate (Levophed/D5w) 8 mg in 508 mls @ 0 mls/hr IV .Q0M SIL[facility]; Protocol Stop: 07/12/21 13:29 Last Titration: 06/16/21 07:10 Dose: 0 mcg/kg/min, 0 mls/hr Documented by: [id number] Cosigned by: [id number] Titration: 06/15/21 07:18 Dose: 0 mcg/kg/min, 0 mls/hr Documented by: [id number] Cosigned by: [id number] Titration: 06/14/21 08:13 Dose: 0 mcg/kg/min, 0 mls/hr Documented by: [id number] Titration: 06/14/21 07:16 Dose: 0.03 mcg/kg/min, 9 mls/hr Documented by: [id number] Cosigned by: [id number] Admin: 06/14/21 06:30 Dose: 0.03 mcg/kg/min, 9 mls/hr Documented by: [id number] Cosigned by: [id number] Titration: 06/14/21 06:30 Dose: 0.03 mcg/kg/min, 9 mls/hr Documented by: [id number] Cosigned by: [id number] Titration: 06/13/21 18:49 Dose: 0.03 mcg/kg/min, 9 mls/hr Documented by: [id number] Cosigned by: [id number] Titration: 06/13/21 17:40 Dose: 0.03 mcg/kg/min, 9 mls/hr Documented by: [id number] Titration: 06/13/21 16:15 Dose: 0.05 mcg/kg/min, 15.1 mls/hr Documented by: [id number] Admin: 06/13/21 14:32 Dose: Not Given Documented by: [id number] Titration: 06/13/21 13:00 Dose: 0.03 mcg/kg/min, 9 mls/hr Documented by: [id number] Titration: 06/13/21 07:01 Dose: 0.04 mcg/kg/min, 12 mls/hr Documented by: [id number] Cosigned by: [id number] Titration: 06/12/21 19:09 Dose: 0.05 mcg/kg/min, 15.1 mls/hr Documented by: [id number] Cosigned by: [id number] Titration: 06/12/21 16:20 Dose: 0.05 mcg/kg/min, 15.1 mls/hr Documented by: [id number] Titration: 06/12/21 15:33 Dose: 0 mcg/kg/min, 0 mls/hr Documented by: [id number] Admin: 06/12/21 12:30 Dose: 0.05 mcg/kg/min, 15.1 mls/hr Documented by: [id number] Cosigned by: [id number] Amiodarone HCl/Dextrose (Nexterone / D5w) 150 mg in 100 mls @ 600 mls/hr IV NOW STA Stop: 06/12/21 13:37 Last Infusion: 06/12/21 15:39 Dose: 0 mls/hr Documented by: [id number] Cosigned by: [id number] Admin: 06/12/21 12:27 Dose: 600 mls/hr Documented by: [id number] Cosigned by: [id number] Dexmedetomidine HCl 200 mcg/ (Sodium Chloride) 50 mls @ 0 mls/hr IV .Q0M [facility]; Protocol Stop: 06/16/21 14:44 Last Titration: 06/16/21 07:10 Dose: 0 mcg/kg/hr, 0 mls/hr Documented by: [id number] Cosigned by: [id number] Titration: 06/15/21 07:18 Dose: 0 mcg/kg/hr, 0 mls/hr Documented by: [id number] Cosigned by: [id number] Admin: 06/15/21 04:18 Dose: Not Given Documented by: [id number] Titration: 06/14/21 23:48 Dose: 0 mcg/kg/hr, 0 mls/hr Documented by: [id number] Titration: 06/14/21 21:23 Dose: 0.2 mcg/kg/hr, 4 mls/hr Documented by: [id number] Admin: 06/14/21 21:23 Dose: 0.4 mcg/kg/hr, 7.9 mls/hr Documented by: [id number] Cosigned by: [id number] Titration: 06/14/21 21:23 Dose: 0.4 mcg/kg/hr, 7.9 mls/hr Documented by: [id number] Cosigned by: [id number] Admin: 06/14/21 21:22 Dose: 0.4 mcg/kg/hr, 7.9 mls/hr Documented by: [id number] Cosigned by: [id number] Titration: 06/14/21 21:22 Dose: 0.4 mcg/kg/hr, 7.9 mls/hr Documented by: [id number] Cosigned by: [id number] Titration: 06/14/21 19:57 Dose: 0.4 mcg/kg/hr, 7.9 mls/hr Documented by: [id number] Admin: 06/14/21 19:56 Dose: 0.6 mcg/kg/hr, 11.9 mls/hr Documented by: [id number] Cosigned by: [id number] Titration: 06/14/21 19:56 Dose: 0.6 mcg/kg/hr, 11.9 mls/hr Documented by: [id number] Cosigned by: [id number] Titration: 06/14/21 19:00 Dose: 0.6 mcg/kg/hr, 11.9 mls/hr Documented by: [id number] Cosigned by: [id number] Titration: 06/14/21 17:53 Dose: 0.6 mcg/kg/hr, 11.9 mls/hr Documented by: [id number] Admin: 06/14/21 17:14 Dose: 0.8 mcg/kg/hr, 15.8 mls/hr Documented by: [id number] Cosigned by: [id number] Titration: 06/14/21 17:14 Dose: 0.8 mcg/kg/hr, 15.8 mls/hr Documented by: [id number] Cosigned by: [id number] Titration: 06/14/21 15:26 Dose: 0.8 mcg/kg/hr, 15.8 mls/hr Documented by: [id number] Admin: 06/14/21 13:40 Dose: 0.6 mcg/kg/hr, 11.9 mls/hr Documented by: [id number] Cosigned by: [id number] Titration: 06/14/21 13:40 Dose: 0.6 mcg/kg/hr, 11.9 mls/hr Documented by: [id number] Cosigned by: [id number] Titration: 06/14/21 09:53 Dose: 0.6 mcg/kg/hr, 11.9 mls/hr Documented by: [id number] Titration: 06/14/21 09:39 Dose: 0.4 mcg/kg/hr, 7.9 mls/hr Documented by: [id number] Cosigned by: [id number] Admin: 06/14/21 09:39 Dose: 0.8 mcg/kg/hr, 15.8 mls/hr Documented by: [id number] Cosigned by: [id number] Titration: 06/14/21 08:12 Dose: 0.4 mcg/kg/hr, 7.9 mls/hr Documented by: [id number] Titration: 06/14/21 07:16 Dose: 0.6 mcg/kg/hr, 11.9 mls/hr Documented by: [id number] Cosigned by: [id number] Admin: 06/14/21 06:22 Dose: 0.6 mcg/kg/hr, 11.9 mls/hr Documented by: [id number] Cosigned by: [id number] Titration: 06/14/21 06:22 Dose: 0.6 mcg/kg/hr, 11.9 mls/hr Documented by: [id number] Cosigned by: [id number] Admin: 06/14/21 04:18 Dose: 0.6 mcg/kg/hr, 11.9 mls/hr Documented by: [id number] Cosigned by: [id number] Titration: 06/14/21 04:18 Dose: 0.6 mcg/kg/hr, 11.9 mls/hr Documented by: [id number] Cosigned by: [id number] Admin: 06/14/21 04:18 Dose: 0.6 mcg/kg/hr, 11.9 mls/hr Documented by: [id number] Cosigned by: [id number] Titration: 06/14/21 04:18 Dose: 0.6 mcg/kg/hr, 11.9 mls/hr Documented by: [id number] Cosigned by: [id number] Admin: 06/14/21 04:18 Dose: 0.6 mcg/kg/hr, 11.9 mls/hr Documented by: [id number] Cosigned by: [id number] Titration: 06/14/21 04:18 Dose: 0.6 mcg/kg/hr, 11.9 mls/hr Documented by: [id number] Cosigned by: [id number] Titration: 06/14/21 04:17 Dose: 0.6 mcg/kg/hr, 11.9 mls/hr Documented by: [id number] Cosigned by: [id number] Admin: 06/14/21 04:17 Dose: 0.6 mcg/kg/hr, 11.9 mls/hr Documented by: [id number] Cosigned by: [id number] Admin: 06/14/21 02:55 Dose: 0.6 mcg/kg/hr, 11.9 mls/hr Documented by: [id number] Cosigned by: [id number] Titration: 06/14/21 01:43 Dose: 0.9 mcg/kg/hr, 17.8 mls/hr Documented by: [id number] Cosigned by: [id number] Admin: 06/13/21 22:54 Dose: 0.9 mcg/kg/hr, 17.8 mls/hr Documented by: [id number] Cosigned by: [id number] Titration: 06/13/21 22:20 Dose: 0.9 mcg/kg/hr, 17.8 mls/hr Documented by: [id number] Cosigned by: [id number] Admin: 06/13/21 19:31 Dose: 0.9 mcg/kg/hr, 17.8 mls/hr Documented by: [id number] Cosigned by: [id number] Titration: 06/13/21 19:31 Dose: 0.9 mcg/kg/hr, 17.8 mls/hr Documented by: [id number] Cosigned by: [id number] Titration: 06/13/21 18:49 Dose: 0.9 mcg/kg/hr, 17.8 mls/hr Documented by: [id number] Cosigned by: [id number] Admin: 06/13/21 18:19 Dose: Not Given Documented by: [id number] Admin: 06/13/21 16:48 Dose: 0.9 mcg/kg/hr, 17.8 mls/hr Documented by: [id number] Cosigned by: [id number] Titration: 06/13/21 16:40 Dose: 0.9 mcg/kg/hr, 17.8 mls/hr Documented by: [id number] Cosigned by: [id number] Titration: 06/13/21 14:31 Dose: 0.9 mcg/kg/hr, 17.8 mls/hr Documented by: [id number] Admin: 06/13/21 13:55 Dose: 1 mcg/kg/hr, 19.8 mls/hr Documented by: [id number] Cosigned by: [id number] Titration: 06/13/21 13:55 Dose: 1 mcg/kg/hr, 19.8 mls/hr Documented by: [id number] Cosigned by: [id number] Titration: 06/13/21 13:47 Dose: 1 mcg/kg/hr, 19.8 mls/hr Documented by: [id number] Titration: 06/13/21 13:30 Dose: 0.9 mcg/kg/hr, 17.8 mls/hr Documented by: [id number] Titration: 06/13/21 13:23 Dose: 0.8 mcg/kg/hr, 15.8 mls/hr Documented by: [id number] Titration: 06/13/21 13:00 Dose: 0.7 mcg/kg/hr, 13.8 mls/hr Documented by: [id number] Titration: 06/13/21 12:40 Dose: 0.6 mcg/kg/hr, 11.9 mls/hr Documented by: [id number] Titration: 06/13/21 12:20 Dose: 0.5 mcg/kg/hr, 9.9 mls/hr Documented by: [id number] Titration: 06/13/21 10:00 Dose: 0.4 mcg/kg/hr, 7.9 mls/hr Documented by: [id number] Titration: 06/13/21 09:00 Dose: 0 mcg/kg/hr, 0 mls/hr Documented by: [id number] Admin: 06/13/21 08:31 Dose: 0.4 mcg/kg/hr, 7.9 mls/hr Documented by: [id number] Cosigned by: [id number] Titration: 06/13/21 07:16 Dose: 0.4 mcg/kg/hr, 7.9 mls/hr Documented by: [id number] Cosigned by: [id number] Titration: 06/13/21 07:01 Dose: 0.4 mcg/kg/hr, 7.9 mls/hr Documented by: [id number] Cosigned by: [id number] Admin: 06/13/21 00:56 Dose: 0.4 mcg/kg/hr, 7.9 mls/hr Documented by: [id number] Cosigned by: [id number] Titration: 06/13/21 00:13 Dose: 0.4 mcg/kg/hr, 7.9 mls/hr Documented by: [id number] Cosigned by: [id number] Titration: 06/12/21 19:09 Dose: 0.4 mcg/kg/hr, 7.9 mls/hr Documented by: [id number] Cosigned by: [id number] Admin: 06/12/21 17:53 Dose: 0.4 mcg/kg/hr, 7.9 mls/hr Documented by: [id number] Cosigned by: [id number] Titration: 06/12/21 17:53 Dose: 0.4 mcg/kg/hr, 7.9 mls/hr Documented by: [id number] Cosigned by: [id number] Admin: 06/12/21 15:09 Dose: 0.4 mcg/kg/hr, 7.9 mls/hr Documented by: [id number] Cosigned by: [id number] Fentanyl Citrate (Fentanyl Drip) 1,250 mcg in 250 mls @ 0 mls/hr IV .Q0M SILVA; Protocol Stop: 06/26/21 14:44 Last Titration: 06/13/21 14:08 Dose: 0 mcg/hr, 0 mls/hr Documented by: [id number] Cosigned by: [id number] Titration: 06/13/21 08:14 Dose: 0 mcg/hr, 0 mls/hr Documented by: [id number] Cosigned by: [id number] Titration: 06/13/21 07:01 Dose: 100 mcg/hr, 20 mls/hr Documented by: [id number] Cosigned by: [id number] Titration: 06/12/21 19:09 Dose: 25 mcg/hr, 5 mls/hr Documented by: [id number] Cosigned by: [id number] Admin: 06/12/21 15:09 Dose: 25 mcg/hr, 5 mls/hr Documented by: [id number] Cosigned by: [id number] Amiodarone HCl/Dextrose (Nexterone / D5w) 360 mg in 200 mls @ 33.333 mls/hr IV ONE ONE; Protocol Stop: 06/12/21 20:30 Last Infusion: 06/12/21 21:17 Dose: 0 mg/min, 0 mls/hr Documented by: [id number] Cosigned by: [id number] Infusion: 06/12/21 19:09 Dose: 1 mg/min, 33.3 mls/hr Documented by: [id number] Cosigned by: [id number] Admin: 06/12/21 15:16 Dose: 1 mg/min, 33.3 mls/hr Documented by: [id number] Cosigned by: [id number] Amiodarone HCl/Dextrose (Nexterone / D5w) 360 mg in 200 mls @ 16.667 mls/hr IV .Q12H SILVA Stop: 07/12/21 20:29 Last Infusion: 06/14/21 06:19 Dose: 0 mg/min, 0 mls/hr Documented by: [id number] Cosigned by: [id number] Admin: 06/13/21 19:32 Dose: 0.5 mg/min, 16.7 mls/hr Documented by: [id number] Cosigned by: [id number] Infusion: 06/13/21 19:32 Dose: 0.5 mg/min, 16.7 mls/hr Documented by: [id number] Cosigned by: [id number] Infusion: 06/13/21 18:49 Dose: 0.5 mg/min, 16.7 mls/hr Documented by: [id number] Cosigned by: [id number] Admin: 06/13/21 08:30 Dose: 0.5 mg/min, 16.7 mls/hr Documented by: [id number] Cosigned by: [id number] Infusion: 06/13/21 08:26 Dose: 0.5 mg/min, 16.7 mls/hr Documented by: [id number] Cosigned by: [id number] Infusion: 06/13/21 07:01 Dose: 0.5 mg/min, 16.7 mls/hr Documented by: [id number] Cosigned by: [id number] Admin: 06/12/21 20:27 Dose: 0.5 mg/min, 16.7 mls/hr Documented by: [id number] Cosigned by: [id number] Hydrocortisone Sodium (Succinate 50 mg/ Syringe) 1 mls @ 4 mls/min IV Q6H SILVA Stop: 07/12/21 14:59 Last Admin: 06/13/21 08:30 Dose: 4 mls/min Documented by: [id number] Admin: 06/13/21 02:56 Dose: 4 mls/min Documented by: [id number] Admin: 06/12/21 20:27 Dose: 4 mls/min Documented by: [id number] Admin: 06/12/21 15:16 Dose: 4 mls/min Documented by: [id number] Vancomycin HCl 1,000 mg/ (Sodium Chloride) 270 mls @ 200 mls/hr IV Q24H SILVA Stop: 06/19/21 21:59 Last Infusion: 06/12/21 23:37 Dose: 0 mls/hr Documented by: [id number] Admin: 06/12/21 22:16 Dose: 200 mls/hr Documented by: [id number] Hydrocortisone Sodium (Succinate 50 mg/ Syringe) 1 mls @ 4 mls/min IV Q8H SILVA Stop: 07/13/21 15:59 Last Admin: 06/14/21 08:31 Dose: 4 mls/min Documented by: [id number] Admin: 06/14/21 00:16 Dose: 4 mls/min Documented by: [id number] Admin: 06/13/21 16:23 Dose: 4 mls/min Documented by: [id number] Cefepime HCl 2,000 mg/ Syringe 20 mls @ 5 mls/min IV DAILY SILVA; Protocol Stop: 06/14/21 12:00 Last Admin: 06/14/21 08:31 Dose: 5 mls/min Documented by: [id number] Cefepime HCl 2,000 mg/ Syringe 20 mls @ 5 mls/min IV Q12H SILVA; Protocol Stop: 06/19/21 08:59 Last Admin: 06/16/21 08:04 Dose: 5 mls/min Documented by: [id number] Admin: 06/15/21 19:35 Dose: 5 mls/min Documented by: [id number] Admin: 06/15/21 08:15 Dose: 5 mls/min Documented by: [id number] Admin: 06/14/21 19:53 Dose: 5 mls/min Documented by: [id number] Hydrocortisone Sodium (Succinate 50 mg/ Syringe) 1 mls @ 4 mls/min IV Q12 SILVA Stop: 07/14/21 20:59 Last Admin: 06/15/21 08:16 Dose: 4 mls/min Documented by: [id number] Admin: 06/14/21 19:55 Dose: 4 mls/min Documented by: [id number] Potassium Phosphate 6 mmol/ (Sodium Chloride) 102 mls @ 88 mls/hr IV ONE ONE Stop: 06/15/21 11:09 Last Infusion: 06/15/21 12:30 Dose: 0 mls/hr Documented by: [id number] Admin: 06/15/21 11:00 Dose: 88 mls/hr Documented by: [id number] Hydrocortisone Sodium (Succinate 50 mg/ Syringe) 1 mls @ 4 mls/min IV QAM SILVA Stop: 06/16/21 09:01 Last Admin: 06/16/21 08:05 Dose: 4 mls/min Documented by: [id number] Thiamine HCl 500 mg/ Sodium (Chloride) 55 mls @ 220 mls/hr IV DAILY SILVA Stop: 06/16/21 09:14 Last Infusion: 06/16/21 08:38 Dose: 0 mls/hr Documented by: [id number] Admin: 06/16/21 08:05 Dose: 220 mls/hr Documented by: [id number] Infusion: 06/15/21 14:59 Dose: 0 mls/hr Documented by: [id number] Admin: 06/15/21 14:39 Dose: 220 mls/hr Documented by: [id number] Phenylephrine HCl 20 mg/ (Dextrose) 502 mls @ 29.744 mls/hr IV .[id number] SILVA; Protocol Stop: 07/15/21 21:14 Last Admin: 06/16/21 22:40 Dose: Not Given Documented by: [id number] Admin: 06/16/21 08:01 Dose: Not Given Documented by: [id number] Titration: 06/16/21 06:26 Dose: 0 mcg/kg/min, 0 mls/hr Documented by: [id number] Titration: 06/16/21 04:56 Dose: 0.25 mcg/kg/min, 29.7 mls/hr Documented by: [id number] Admin: 06/15/21 21:21 Dose: 0.5 mcg/kg/min, 59.5 mls/hr Documented by: [id number] Cosigned by: [id number] Amiodarone HCl/Dextrose (Nexterone / D5w) 150 mg in 100 mls @ 600 mls/hr IV NOW STA Stop: 06/15/21 23:07 Last Infusion: 06/15/21 23:19 Dose: 0 mls/hr Documented by: [id number] Cosigned by: [id number] Admin: 06/15/21 23:08 Dose: 600 mls/hr Documented by: [id number] Cosigned by: [id number] Amiodarone HCl/Dextrose (Nexterone / D5w) 360 mg in 200 mls @ 33.333 mls/hr IV ONE ONE Stop: 06/16/21 04:59 Last Infusion: 06/16/21 05:24 Dose: 0 mls/hr Documented by: [id number] Cosigned by: [id number] Admin: 06/15/21 23:23 Dose: 33.3 mls/hr Documented by: [id number] Cosigned by: [id number] Amiodarone HCl/Dextrose (Nexterone / D5w) 360 mg in 200 mls @ 16.667 mls/hr IV .Q12H [facility] Stop: 07/16/21 04:59 Last Infusion: 06/17/21 11:29 Dose: 0 mg/min, 0 mls/hr Documented by: [id number] Cosigned by: [id number] Admin: 06/17/21 05:05 Dose: 0.5 mg/min, 16.7 mls/hr Documented by: [id number] Cosigned by: [id number] Infusion: 06/17/21 04:31 Dose: 0.5 mg/min, 16.7 mls/hr Documented by: [id number] Cosigned by: [id number] Admin: 06/16/21 16:32 Dose: 0.5 mg/min, 16.7 mls/hr Documented by: [id number] Cosigned by: [id number] Infusion: 06/16/21 16:32 Dose: 0.5 mg/min, 16.7 mls/hr Documented by: [id number] Cosigned by: [id number] Infusion: 06/16/21 07:10 Dose: 0.5 mg/min, 16.7 mls/hr Documented by: [id number] Cosigned by: [id number] Admin: 06/16/21 04:56 Dose: 0.5 mg/min, 16.7 mls/hr Documented by: [id number] Cosigned by: [id number] Potassium Phosphate 15 mmol/ (Sodium Chloride) 255 mls @ 88 mls/hr IV ONE ONE Stop: 06/16/21 04:38 Last Infusion: 06/16/21 04:40 Dose: 0 mls/hr Documented by: [id number] Admin: 06/16/21 01:46 Dose: 88 mls/hr Documented by: [id number] Dextrose/Sodium Chloride (D5w And 1/2nss) 1,000 mls @ 50 mls/hr IV .Q20H SILVA Stop: 07/16/21 07:59 Last Infusion: 06/16/21 22:37 Dose: 0 mls/hr Documented by: [id number] Admin: 06/16/21 08:05 Dose: 50 mls/hr Documented by: [id number] Hydrocortisone Sodium (Succinate 50 mg/ Syringe) 1 mls @ 4 mls/min IV QAM SILVA Stop: 06/17/21 09:01 Last Admin: 06/17/21 08:23 Dose: 4 mls/min Documented by: [id number] Piperacillin Sod/Tazobactam (Sod 3.375 gm/ Dextrose) 115 mls @ 230 mls/hr IV TODAY@1600 ONE; Protocol Stop: 06/16/21 16:29 Last Infusion: 06/16/21 17:29 Dose: 0 mls/hr Documented by: [id number] Admin: 06/16/21 16:32 Dose: 230 mls/hr Documented by: [id number] Potassium Phosphate 15 mmol/ (Sodium Chloride) 255 mls @ 88 mls/hr IV ONE ONE Stop: 06/17/21 10:38 Last Infusion: 06/17/21 11:12 Dose: 0 mls/hr Documented by: [id number] Admin: 06/17/21 08:18 Dose: 88 mls/hr Documented by: [id number] Levalbuterol HCl (Levalbuterol Hcl 0.63 Mg/3 Ml Neb) 0.63 mg NEB NOW STA Stop: 06/11/21 23:12 Last Admin: 06/12/21 00:38 Dose: 0.63 mg Documented by: [id number] Lorazepam (Lorazepam 2 Mg/4 Ml Vial) Confirm Administered Dose 2 mg .ROUTE .[facility]- MED ONE Stop: 06/12/21 11:52 Last Admin: 06/12/21 15:06 Dose: Not Given Documented by: [id number] Metoprolol Tartrate (Metoprolol Tartrate 1 Mg/Ml Vial) Confirm Administered Dose 5 mg IV .STK-MED ONE Stop: 06/15/21 16:05 Last Admin: 06/15/21 16:05 Dose: 5 mg Documented by: [id number] Metoprolol Tartrate (Metoprolol Tartrate 1 Mg/Ml Vial) 5 mg IV NOW STA Stop: 06/15/21 20:07 Last Admin: 06/15/21 20:17 Dose: 5 mg Documented by: [id number] Metoprolol Tartrate (Metoprolol Tartrate 1 Mg/Ml Vial) Confirm Administered Dose 5 mg IV .STK-MED ONE Stop: 06/15/21 20:16 Last Admin: 06/15/21 21:16 Dose: Not Given Documented by: [id number] Metoprolol Tartrate (Metoprolol Tartrate 1 Mg/Ml Vial) 5 mg IV NOW STA Stop: 06/16/21 08:04 Last Admin: 06/16/21 08:37 Dose: Not Given Documented by: [id number] Metoprolol Tartrate (Metoprolol Tartrate 1 Mg/Ml Vial) 2.5 mg IV Q6 SILVA Stop: 07/16/21 13:59 Last Admin: 06/17/21 05:08 Dose: 2.5 mg Documented by: [id number] Admin: 06/16/21 23:41 Dose: 2.5 mg Documented by: [id number] Admin: 06/16/21 20:06 Dose: 2.5 mg Documented by: [id number] Admin: 06/16/21 13:18 Dose: 2.5 mg Documented by: [id number] Metoprolol Tartrate (Metoprolol Tartrate 1 Mg/Ml Vial) Confirm Administered Dose 5 mg IV .STK-MED ONE Stop: 06/16/21 08:09 Last Admin: 06/16/21 08:11 Dose: 5 mg Documented by: [id number] Metoprolol Tartrate (Metoprolol Tartrate 1 Mg/Ml Vial) 5 mg IV NOW STA Stop: 06/17/21 08:04 Last Admin: 06/17/21 08:18 Dose: 5 mg Documented by: [id number] Miscellaneous (Rapid Sequence Induction Bag) Confirm Administered Dose 1 ea .ROUTE .STK-MED ONE Stop: 06/12/21 12:19 Last Admin: 06/12/21 15:07 Dose: 1 ea Documented by: [id number] Morphine Sulfate (Morphine Sulfate 4 Mg/Ml 1 Ml Carp\Vial) 4 mg IV Q15M PRN PRN Reason: Pain Stop: 06/24/21 17:58 Last Admin: 06/10/21 18:27 Dose: 4 mg Documented by: [id number] Admin: 06/10/21 18:09 Dose: 4 mg Documented by: [id number] Naloxone HCl (Naloxone Hcl 0.4 Mg/1 Ml Vial/Carp) 0.4 mg IV NOW STA Stop: 06/12/21 11:02 Last Admin: 06/12/21 11:23 Dose: 0.4 mg Documented by: [id number] Naloxone HCl (Naloxone Hcl 0.4 Mg/1 Ml Vial/Carp) 1 mg IV NOW STA Stop: 06/16/21 09:16 Last Admin: 06/16/21 09:22 Dose: 1 mg Documented by: [id number] Naloxone HCl (Naloxone Hcl 0.4 Mg/1 Ml Vial/Carp) 0.4 mg IV NOW STA Stop: 06/16/21 12:28 Last Admin: 06/16/21 13:17 Dose: 0.4 mg Documented by: [id number] Naloxone HCl (Naloxone Hcl 0.4 Mg/1 Ml Vial/Carp) 1 mg IV NOW STA Stop: 06/17/21 09:35 Last Admin: 06/17/21 09:53 Dose: 1 mg Documented by: [id number] Naloxone HCl (Naloxone Hcl 0.4 Mg/1 Ml Vial/Carp) Confirm Administered Dose 0.4 mg .ROUTE .STK-MED ONE Stop: 06/17/21 09:40 Last Admin: 06/17/21 09:53 Dose: Not Given Documented by: [id number] Naloxone HCl (Naloxone Hcl 0.4 Mg/1 Ml Vial/Carp) Confirm Administered Dose 0.8 mg .ROUTE .STK-MED ONE Stop: 06/17/21 09:43 Last Admin: 06/17/21 09:53 Dose: Not Given Documented by: [id number] Norepinephrine Bitartrate (Norepinephrine/D5w 8 Mg/508 Ml) Confirm Administered Dose 8 mg IV .STK-MED ONE Stop: 06/12/21 12:48 Last Admin: 06/12/21 14:43 Dose: Not Given Documented by: [id number] Ondansetron HCl (Ondansetron Inj 2 Mg/Ml 2 Ml Vial) 4 mg IV NOW STA Stop: 06/10/21 18:00 Last Admin: 06/10/21 18:09 Dose: 4 mg Documented by: [id number] Description This is a 21 electrode EEG with a single channel dedicated to limited EKG. The electrodes were placed in accordance with the International 10-20 system. The predominant background rhythm consists of a mix of poorly organized alpha and moderate amplitude polymorphic theta frequencies. Photic stimulation is unremarkable. Hyperventilation is not performed. There is no focal slowing. There are no epileptiform abnormalities. Interpretation Abnormal awake/drowsy EEG with evidence of a moderate nonspecific encephalopathy. No evidence of subclinical seizure activity. [facility] EEG Procedure Codes Indication for Procedure (1) Encephalopathy acute: Neurology Neurology: [id number] EEG include record awake & drowsy
--- NOTE | 2021-06-17 19:03 | Hospitalist Progress Note ---
Date of Service June 17, 2021 Assessment & Plan (1) Sepsis with acute respiratory failure and septic shock: Plan: This patient is in 81 y/o WF with a PMHx of Hypothyroidism and recurrent pancreatitis admitted 06/10 with acute pancreatitis (Lipase 7778)-- recurrent issues without obvious cause, suspected idiopathic pancreatitis versus autoimmune-daughter reports that this is patient's 12th episode of pancreatitis in her lifetime Previously had gallbladder sludge but patient had declined to have cholecystectomy several years ago and gallbladder ultrasound here again with gallbladder sludge She had EUS which showed pancreatic head cyst in 2018 but then did not return for follow-up EUS at [facility] as planned [address] of A/P: pancreatitis without cyst/pseudocyst and ductal dilation LFT's initially WNL and then only mild elevation in AST after that, total bilirubin normal MRCP: pancreatitis without cyst/pseudocyst/abscess or ductal dilation Triglyceride level WNL: 28 No evidence of hypercalcemia Patient does not drink ETOH-confirmed with both daughter and (as per care coordination manager resident) Procalcitonin peaked at 60 and is now continues to trend downward to 23 - seen by GI early on in the course of admission and plan was for EUS as OP with Dr. Mclain - Patient did not tolerate clear liquids-- had increased pain and nausea with multiple bouts of emesis which led to aspiration pneumonitis, hypoxia, as well as rapid atrial fibrillation and profound hypotension requiring emergent DC cardioversion and emergent intubation and was transferred to the ICU on the night of 06/11 -Chest x-ray consistent with aspiration pneumonia and she had bronchoscopy to clear out the lungs by pulmonology Acute respiratory failure with hypoxia secondary to ARDS plus some volume overload -She was also started on IV amiodarone and was started on 3 pressors and eventually stabilized, but then was back on phenylephrine on 06/15 for rapid atrial fibrillation causing hypotension-now weaned off pressors again -Also now completely weaned off IV hydrocortisone She self extubated on 06/13 but remained significantly encephalopathic for many daysseverely agitated, not able to follow commands or answer questions appropriately, requiring IV Haldol at times-now improving on 06/17 On 06/16 is spiking fevers-none since -Changed cefepime and metronidazole to Zosyn for aspiration pneumonia and seems to be improving now -Avoid opioids as some of her lethargy did improve with Narcan -Was on stress dose steroids with hydrocortisone which is now being weaned off- accounts somewhat for leukocytosis -Remains n.p.o. while quite encephalopathic-start NG tube on 06/16 for enteral feeds -Continue to monitor urine output, blood pressures -Monitor CBC, CMP Appreciate care coordination manager management -Follow chest x-ray -Getting IV Lasix periodically for diuresis -Continue supplemental O2 and wean off as able to-remains on 4 L NC, high risk for reintubation (2) Encephalopathy acute: Plan: Profound, after self extubation, was continuing to be quite agitated as per nursing staff and trying to pull out her tubes and lines, is shouting out things that do not make sense, not able to follow commands Since 06/15, she is less agitated and weaned off Precedex drip, but continued to be minimally interactive, does not follow commands, does not speak most of the time when asked questions On 06/16 and 06/17, she was given Narcan which did seem to really perk her up a bit. Perhaps this was all opioid-induced delirium Neurology consultation appreciated 06/17-CT head negative, EEG negative for seizure activity but showed encephalopathy moderate On 06/17, most improved mentation she has had a week-she is able to interact and answer some questions and is less lethargic Question if there is some Wernicke's encephalopathy given recurrent pancreatitis, may have poor absorption in the gut and may be nutritionally deficient-treated with high-dose IV thiamine -Continue to treat underlying inflammatory and infectious issues as above with antibiotics-IV antibiotics changed on 06/16-perhaps this helped? -Avoidance of opioids -Appreciate psychiatry and neurology consultation -Continue IV thiamine -Consider MRI of the brain if able to tolerate -Ammonia level normal at 30 -Ensure she is moving her bowels -Continue to treat hypoxia with supplemental O2 (3) Atrial fibrillation with RVR: Plan: - Likely sepsis driven due to catecholamine release -Echocardiogram here with hyperdynamic LV, severe LVH, elevated RVSP at 50-60 mmHg -With profound hypotension as above requiring urgent DC cardioversion earlier in her hospital stay -Amiodarone drip was then discontinued, however restarted on 06/15 for recurrent rapid atrial fibrillation and hypotension -Was requiring phenylephrine for hypotension associated with rapid atrial fibrillation-now weaned off again Remains in sinus rhythm on 06/17 with very frequent ectopy -Convert IV amiodarone to p.o. through NG tube for now, although 200 mg once daily may not be a large enough dose for her-will discuss with cardiology -Started therapeutic dose Lovenox -Started metoprolol tartrate 12.5 mg per NG tube every 12 hours and titrate up as able to, IV Lopressor as needed Continue to monitor on telemetry -Continue to keep electrolytes replaced (4) Hypothyroid: Plan: TSH here normal at 1.9 Continue IV levothyroxine for now while n.p.o. but could put through NG tube starting tomorrow (5) Acute pancreatitis: Plan: As above, idiopathic versus autoimmune? This is apparently her 12th episode of pancreatitis as per her daughter She is noted to not have any alcohol history which is confirmed by family however her MCV is quite elevated without anemia which may suggest underlying liver disease although synthetic function normal and liver appears normal on imaging Possibly secondary to gallbladder sludge Also had pancreatic cyst seen on EUS in 2018-this needs repeat EUS for follow-up in 4 weeks after discharge Patient now denying abdominal pain on 06/17, no tenderness on examination Pancreatitis seems to be resolved (6) Hiatal hernia: Plan: Large hiatal hernia with approximately half the stomach located in the thoracic cavity noted on CT abdomen/pelvis-this puts her at increased risk for aspiration Continues on IV Protonix here once daily (7) Aspiration pneumonia: Plan: As above, continues with nonproductive cough, poor cough response, remains hypoxic but mentation is improving on 06/17 Chest x-ray with left lower lobe collapse and pleural effusion but slightly improved from previous Procalcitonin trending downward, but with fevers on 06/16-change antibiotics to Zosyn (from cefepime and metronidazole) Leukocytosis likely secondary to stress dose steroids but could be from infection Monitor chest x-ray and oxygenation NG tube placed for enteral feeds Keep n.p.o. for now but likely can tolerate a speech therapy evaluation tomorrow now that her mentation is improving (8) CRUZ (acute kidney injury): Plan: With creatinine elevated to 1.68 at peak and now improved to normal Likely secondary to ATN from hypotension and septic shock She has making urine, Cain catheter remains in place Follow BMP Renally dose medications (9) Fever: Plan: As above, now resolved with changing antibiotics to Zosyn (10) Hypercholesterolemia: Plan: Holding home krill oil (11) Hypertension: Plan: With hypotension as above now while in atrial fibrillation which is now resolved and is actually hypertensive now in a sinus rhythm Now on metoprolol for rapid atrial fibrillation Not on medications at home for this Was given 1 dose of amlodipine 10 mg on 06/17 (12) Macrocytosis: Plan: B12 and folate normal No history of alcohol use Synthetic liver function seems normal Question if has early MDS? Follow as an outpatient (13) Hypernatremia: Plan: Sodium improving down to 147 Discontinued D5 half-normal Continue tube feeds and free water flushes Follow BMP Plan: DVT prophylaxis-now on therapeutic dose Lovenox Disposition-continued stay in the ICU, prognosis remains guarded but improving Admission and Anticipated Discharge Date Admission Date: June 10, 2021 Subjective Pt doing better today, more interactive, calm. Knows she is in the hospital. Denies any abdominal pain. Reports she is coughing and is trying to get a lot of dried mucus out of her mouth. She was converted from IV to p.o. amiodarone And has remained in a sinus rhythm with frequent PACs today. Review of Systems Review of Systems: All systems reviewed & are unremarkable except as noted in HPI & below Physical Exam Constitutional: WD/WN, vitals as above average body habitus and + lethargic; no acute distress ENMT: Nose: + external nose abnormality (NG tube in place) Mouth: + oral mucosal abnormality (Dry) Neck: trachea midline, no thyromegaly Respiratory: normal respiratory effort and + cough (Moderate nonproductive cough); no labored breathing Auscultation: + crackles (Bibasilar) and + rhonchi (Bilateral) Cardiovascular: RRR, no murmur, no edema (With frequent ectopy) Extremities: no edema Chest (Breasts): Chest: normal inspection of chest Gastrointestinal (Abdomen): normal bowel sounds, soft, nontender, no hepatosplenomegaly Musculoskeletal: Extremities: extremities normal to inspection; no cyanosis and no clubbing Skin: no rashes, warm and dry Neurologic: moves all extremities and awake; no focal motor deficits More interactive today, answer some questions but remains mildly lethargic. When asked if she knows where she is, she shakes her head yes and states "the hospital." Lymphatic: no lymphedema Results & Data Results & Data ([facility]) Vital Signs (Past 12 Hours) Vital Signs Temp Pulse Resp BP Pulse Ox 06/17/21 16:56 83 176/82 H 06/17/21 16:00 37.6 C H 70 28 H 176/82 H 93 06/17/21 15:00 37.5 C 82 29 H 151/71 H 93 06/17/21 14:00 37.7 C H 76 28 H 94 06/17/21 13:00 37.7 C H 79 26 H 94 06/17/21 12:00 37.7 C H 84 31 H 157/74 H 94 06/17/21 11:00 37.6 C H 75 28 H 167/78 H 94 06/17/21 10:00 37.4 C 78 24 179/75 H 93 06/17/21 09:00 37.4 C 64 20 153/83 H 96 06/17/21 08:18 72 182/96 H 06/17/21 08:00 37.3 C 74 23 182/96 H 96 Laboratory Results 06/17/21 06/17/21 06/17/21 Range/Units 19:03 12:02 05:50 WBC (4.8-10.8) K/uL RBC (4.2-5.4) M/uL Hgb (12.0-16.0) g/dL Hct (37-47) % MCV (80-100) fL MCH (25-34) pg MCHC (32-36) g/dL RDW Std Deviation (36.4-46.3) fL RDW Coeff of Estrellita (11.5-14.5) % Plt Count (130-400) K/uL MPV (7.4-10.4) fL Immature Gran % (Auto) % Neut % (Auto) % Lymph % (Auto) % Branch % (Auto) % Eos % (Auto) % Baso % (Auto) % Neut # (Auto) (1.4-6.5) K/uL Lymph # (Auto) (1.2-3.4) K/uL Branch # (Auto) (0.11-0.59) K/uL Eos # (Auto) (0-0.5) K/uL Baso # (Auto) (0-0.2) K/uL Immature Gran # (Auto) (0.00-0.02) K/uL Sodium 147 H (136-145) mmol/L Potassium 3.8 (3.5-5.1) mmol/L Chloride 119 H (98-107) mmol/L Carbon Dioxide 23 (21-32) mmol/L Anion Gap 6.0 (3-11) BUN 43 H (7-18) mg/dl Creatinine 0.92 (0.6-1.2) mg/dl Est Cr Clr Drug Dosing 43.8 ml/min Est GFR ( Amer) 67.2 ml/min Est GFR (Non-Af Amer) 58.0 ml/min BUN/Creatinine Ratio 46.8 H (10-20) Glucose 153 H (70-99) mg/dl POC Glucose 135 H 129 H (70-99) mg/dl Calcium 9.4 (8.5-10.1) mg/dl Phosphorus 1.8 L D (2.5-4.9) mg/dl Magnesium 2.4 (1.8-2.4) mg/dl 06/17/21 Range/Units 05:43 WBC 20.03 H (4.8-10.8) K/uL RBC 4.36 (4.2-5.4) M/uL Hgb 14.2 (12.0-16.0) g/dL Hct 42.4 (37-47) % MCV 97.2 (80-100) fL MCH 32.6 (25-34) pg MCHC 33.5 (32-36) g/dL RDW Std Deviation 51.3 H (36.4-46.3) fL RDW Coeff of Estrellita 14.3 (11.5-14.5) % Plt Count 276 (130-400) K/uL MPV 9.9 (7.4-10.4) fL Immature Gran % (Auto) 1.4 % Neut % (Auto) 81.9 % Lymph % (Auto) 11.2 % Branch % (Auto) 5.4 % Eos % (Auto) 0.0 % Baso % (Auto) 0.1 % Neut # (Auto) 16.39 H (1.4-6.5) K/uL Lymph # (Auto) 2.24 (1.2-3.4) K/uL Branch # (Auto) 1.08 H (0.11-0.59) K/uL Eos # (Auto) 0.01 (0-0.5) K/uL Baso # (Auto) 0.03 (0-0.2) K/uL Immature Gran # (Auto) 0.28 H (0.00-0.02) K/uL Sodium (136-145) mmol/L Potassium (3.5-5.1) mmol/L Chloride (98-107) mmol/L Carbon Dioxide (21-32) mmol/L Anion Gap (3-11) BUN (7-18) mg/dl Creatinine (0.6-1.2) mg/dl Est Cr Clr Drug Dosing ml/min Est GFR ( Amer) ml/min Est GFR (Non-Af Amer) ml/min BUN/Creatinine Ratio (10-20) Glucose (70-99) mg/dl POC Glucose (70-99) mg/dl Calcium (8.5-10.1) mg/dl Phosphorus (2.5-4.9) mg/dl Magnesium (1.8-2.4) mg/dl Diagnostic Findings Chest X-Ray 06/17/21 07:00 XR chest 1V portable CLINICAL HISTORY: f/u COMPARISON STUDY: Chest radiograph June 16, 2021 at 1:30 PM. FINDINGS: Feeding tube is partially obscured. However, tip projects over the body of the stomach. There is no pneumothorax. There are persistent small bilateral pleural effusions. Interstitial thickening and bilateral opacities persist. There is a hiatal hernia. Cardiomediastinal silhouette is stable. IMPRESSION: Persistent bilateral airspace opacities, interstitial thickening and small bilateral pleural effusions. ACT 112: Negative or not required by law. Electronically signed by: Shiav Jones M.D. 06/17/2021 7:[address] 06/17/21 11:57 CT head/brain wo con CLINICAL HISTORY: 81 years-old Female with encephalopathy. Acutely altered mental status TECHNIQUE: Multiple axial CT images of the head were obtained without contrast. A dose lowering technique was utilized adhering to the principles of ALARA. CT DOSE: 1147.63 mGy.cm COMPARISON: None. FINDINGS: No acute intracranial hemorrhage, midline shift, intracranial mass, hydro cephalus, territorial ischemia or abnormal extra-axial collection. Age-related involutional changes. White matter hypodensities suggest chronic microvascular ischemic disease. The study is mildly motion degraded. Cerebral vascular calcifications. The calvarium is intact. Numerous lucent foci of the occipital calvarium suggest probable arachnoid granulations. Partially imaged nasopharyngeal catheter is present. The paranasal sinuses, mastoid air cells, and middle ear cavities are clear. Prior bilateral lens repair. IMPRESSION: No acute intracranial abnormality. ACT 112: Negative or not required by law. The above report was generated using voice recognition software. It may contain grammatical, syntax or spelling errors. Electronically signed by: Mk Kulkarni M.D. 06/17/2021 1:41 PM PG Care Time/CCT Total # of Minutes Spent Total Time Spent with Patient: Total time spent is greater than 50% in coordination of care (as documented) at patient's floor/unit and/or counseling patient: Coding Level of Care Code 84439 Subseq Hosp Care Lvl 3 Diagnoses Sepsis with acute respiratory failure and septic shock A41.9; R65.21; J96.00 Atrial fibrillation with RVR I48.91 Encephalopathy acute G93.40 Hypothyroid E03.9 Acute pancreatitis K85.90 Acute pancreatitis complication: unspecified Pancreatitis type: unspecified pancreatitis type Hiatal hernia K44.9 Aspiration pneumonia J69.0 CRUZ (acute kidney injury) N17.9 Fever R50.9 Hypercholesterolemia E78.00 Hypertension I10 Hypertension type: essential hypertension Macrocytosis D75.89 Hypernatremia E87.0 (1) Hypertension Hypertension type: essential hypertension Qualified Code(s): I10 - Essential (primary) hypertension (2) Acute pancreatitis Acute pancreatitis complication: unspecified Pancreatitis type: unspecified pancreatitis type Qualified Code(s): K85.90 - Acute pancreatitis without necrosis or infection, unspecified
[2021-06-17] MEDS ORDERED: METOPROLOL TARTRATE 25 MG TAB PO ONE (21:00)
[2021-06-18] MEDS: PIPERACILLIN/TAZOBACTAM 3.375 GM in DEXTROSE 5% 100 ML IV SCH ×3 (04:23→20:20)
[2021-06-18] MEDS: TUBE FEEDING WATER FLUSH GT SCH ×4 (04:23→20:18)
[2021-06-18 04:35] LABS: Hematocrit (blood only) 42.7 % (37-47); Hemoglobin 14.1 g/dL (12.0-16.0); Mean Corpuscular Hemoglobin 32.6 pg (25-34); Mean Corpuscular Volume 98.8 fL (80-100); Mean Platelet Volume 10.1 fL (7.4-10.4); Platelet Count 326 K/uL (130-400); RDW Coefficient of Variation 14.4 % (11.5-14.5); RDW Standard Deviation 52.1 fL (36.4-46.3); Red Blood Count 4.32 M/uL (4.2-5.4); White Blood Count 19.99 K/uL (4.8-10.8)
[2021-06-18 04:59] LABS: BUN Creatinine Ratio 45.8 (10-20); Creatinine Clr Calc Pharmacy 52.4 ml/min; Est GFR (African American) 83.3 ml/min; Est GFR (Non-African American) 71.9 ml/min; Magnesium 2.3 mg/dl (1.8-2.4); Phosphorus 1.8 mg/dl (2.5-4.9); Potassium 3.8 mmol/L (3.5-5.1)
[2021-06-18] MEDS ORDERED: POTASSIUM PHOS 3 MMOL/1 ML INFUSION IV STA (06:21)
[2021-06-18] MEDS ORDERED: POTASSIUM PHOSPHATE 15 MMOL in SODIUM CHLORIDE 0.9% 250 ML IV ONE (06:30)
[2021-06-18] MEDS ORDERED: amLODIPine BESYLATE 5 MG TAB PO SCH (09:00)
[2021-06-18] MEDS: THIAMINE HCL 100 MG TAB PO SCH (09:24)
[2021-06-18] MEDS: AMIODARONE 200 MG TAB PO SCH (09:24)
[2021-06-18] MEDS: ENOXAPARIN 80 MG/0.8 ML SYR SQ SCH ×2 (09:24→20:17)
[2021-06-18] MEDS: METOPROLOL TARTRATE 25 MG TAB PO SCH ×2 (09:25→20:17)
--- NOTE | 2021-06-18 09:53 | Neurology Progress Note ---
Date of Service June 18, 2021 Assessment & Plan (1) Encephalopathy acute: Plan: Patient's encephalopathy is considerably improved this morning. Patient's encephalopathy is likely multifactorial, please see yesterday's consultation for further details. Given her significant improvement I would not recommend further neurologic evaluations at this point in time. Continue supportive medical care. Admission and Anticipated Discharge Date Admission Date: June 10, 2021 Subjective Follow-up for encephalopathy The patient's level of alertness and attention have significantly improved compared with yesterday. She has been interacting appropriately with nursing staff. No longer exhibiting significant agitation or inattentiveness. Did complete the requested follow-up testing yesterday including CT of the head and EEG. The CT of the head was negative for hemorrhage or acute process. There was mild generalized atrophy. No hydrocephalus. I reviewed the images as well as the radiologist interpretation of this test. The EEG revealed generalized theta slowing consistent with a moderate nonspecific encephalopathy, no epilepti form abnormalities. Review of Systems Gastrointestinal: no abdominal pain Neurologic: as per Subjective / HPI; no localized weakness, no abnormal movements and no headache(s) Results & Data ([facility]) Vital Signs (Past 12 Hours) Vital Signs Temp Pulse Resp BP Pulse Ox 06/18/21 08:00 78 06/18/21 06:00 68 26 H 112/59 L 93 06/18/21 04:00 37.3 C 83 25 H 152/63 H 93 06/18/21 03:00 37.2 C 71 24 187/84 H 94 06/18/21 02:00 37.3 C 77 27 H 172/84 H 93 06/18/21 01:00 78 26 H 94 06/18/21 00:00 37.3 C 78 21 159/71 H 93 06/17/21 23:00 37.4 C 68 25 H 94 06/17/21 22:00 37.4 C 80 23 176/78 H 88 L Exam (Neuro) Neurologic: Oriented to:: Person, Place and Time Attention: Span Intact Speech Fluency: negative Dysarthria or Dysfluency Fund of Knowledge: Vocabula ry Cranial Nerves: Normal II, III, IV, and VII Motor Strength: negative Normal Lower Extremities or Normal Upper Extremities Muscle Bulk/Involuntary Movements: No Involuntary Movements Details: Patient is much more attentive and appropriate compared with yesterday. Her speech is somewhat soft, no aphasia, good comprehension of vocabulary. She is oriented to person place and time. She does not exhibit any abnormal movements. Coding Level of Care Code 74025 Subseq Hosp Care Lvl 2 Diagnoses Encephalopathy acute G93.40
--- NOTE | 2021-06-18 10:36 | Critical Care Progress Note ---
Date of Service June 18, 2021 Assessment & Plan (1) Sepsis with acute respiratory failure and septic shock: (2) ARDS (adult respiratory distress syndrome): (3) Pancreatitis: (4) Hypothyroid: Plan: 81-year-old female with a history of recurrent pancreatitis presenting to the hospital with septic shock and ARDS. She was found to have pancreatitis. Was also in A. fib with RVR and was cardioverted. Extubated 06/13/2021 Neurologic: Delirium:-Bouts of agitated delirium mixed with passive delirium --> improved as of the evening of 06/17/2021 CT head 06/17/2021 negative Pulmonary: --Acute hypoxic respiratory failure Secondary to multilobar pneumonia likely secondary to aspiration Patient self extubated 06/13/2021 Continue with O2 supplementation to keep oxygen saturation between 90-92% Patient will benefit from incentive spirometry but unfortunately her mental status is not good to follow commands Cardiovascular: --Hypertension On amlodipine as well as metoprolol --S/p shock Likely from sepsis Off vasopressors. S/p stress dose steroids/hydrocortisone --A. fib with RVR S/p amiodarone drip. On p.o. amiodarone [id number]: 4 2D echo 06/12/2021: severe LVH. Aortic valve sclerosis of moderate degree. RVSP of 50 to 60 mmHg Gastrointestinal: --Pancreatitis MRCP 06/10/2021 with findings of acute mild pancreatitis. No biliary ductal di lation or biliary filling defects. Large hiatal hernia. Lipase continues to improve. Gastroenterology consulted for pancreatitis. Triglycerides 81(within normal limit) possible autoimmune pancreatitis. --Large hiatal hernia This does predispose the patient to aspiration Renal: -- CRUZ--> improving Likely from hypotension Improving Monitor BUN/creatinine Avoid nephrotoxic medications Strict ins and outs Infectious disease: --Aspiration pneumonia Plan as above Procalcitonin 13.7--> 60.98--> 40.2 urinalysis and sputum culture negative to date. Blood culture 06/17/2021 showing gram-positive cocci in chains Will monitor for necrotizing pancreatitis. On Zosyn Hematologic: No DVT seen on ultrasound evidence. Endocrine: --Hypothyroidism TSH 1.9 On IV levothyroxine 50 mcg given n.p.o. status. She is normally on 88 mcg p.o. of levothyroxine. --Prophylaxis VTE: Therapeutic Lovenox GI: Protonix Lines: Peripheral, positive Cain Diet: Tube feeds Plan: In/out: +1435, urine output 765 Patient mental status is significantly improved I think she is coming out of her delirious state Hypophosphatemia is being replaced 1 out of 2 blood culture bottles are positive for gram-positive cocci in chains done 06/17/2021. Continue with Zosyn We'll repeat blood culture tomorrow for sodium 146 continue with 200 mL every 6 hours of free water via the NGT for 4 doses Wound care consult Swallow eval Patient hemodynamically stable to be sent out of the ICU to a telemetry floor Please note the above document was generated using voice recognition software. It may contain grammatical, syntax or spelling errors.Any formal questions or concerns about the content, text or information contained within the body of this dictation should be directly addressed to the provider for clarification. Admission and Anticipated Discharge Date Admission Date: June 10, 2021 Subjective Patient seen and family at bedside. No acute distress, no adverse events overnight Patient is actually awake and alert today. Answering appropriate questions. Denies any headache, no nausea, no vomiting. She has been coughing bringing up thick phlegm She was asking to have some water Review of Systems Review of Systems: All systems reviewed & are unremarkable except as noted in Subjective Physical Exam Physical Exam: Constitutional: No acute distress HEENT: EOMI, PERRLA Respiratory system: Decreased air entry bilaterally, no wheeze, no rhonchi, positive crackles bilateral lower lobes CVS: S1-S2 positive, no murmurs or gallops Abdomen: Soft, nontender, nondistended, positive bowel sounds x4 Extremities: +2 pulses bilaterally radialis/ dorsalis pedis, no cyanosis, no edema Neuro: Awake alert oriented to self Psych: Normal mood and affect G/U: Positive Cain Skin: no rashes, warm and dry Lymphatic: no cervical or axillary lymphadenopathy Results & Data Results & Data ([facility]) Vital Signs (Past 12 Hours) Vital Signs Temp Pulse Resp BP Pulse Ox 06/18/21 08:00 78 06/18/21 06:00 68 26 H 112/59 L 93 06/18/21 04:00 37.3 C 83 25 H 152/63 H 93 06/18/21 03:00 37.2 C 71 24 187/84 H 94 06/18/21 02:00 37.3 C 77 27 H 172/84 H 93 06/18/21 01:00 78 26 H 94 06/18/21 00:00 37.3 C 78 21 159/71 H 93 06/17/21 23:00 37.4 C 68 25 H 94 06/18/21 03:54 06/18/21 03:54 Coding Level of Care Code 41038 Subseq Hosp Care [facility] 3 Diagnoses Sepsis with acute respiratory failure and septic shock A41.9; R65.21; J96.00 ARDS (adult respiratory distress syndrome) J80 Pancreatitis K85.00 Acute pancreatitis complication: unspecified Chronicity: acute Pancreatitis type: idiopathic Hypothyroid E03.9 (1) Pancreatitis Acute pancreatitis complication: unspecified Chronicity: acute Pancreatitis type: idiopathic Qualified Code(s): K85.00 - Idiopathic acute pancreatitis without necrosis or infection
[2021-06-18] MEDS: PANTOprazole 40 MG in SYRINGE 0 ML IV SCH (12:11)
[2021-06-18] MEDS ORDERED: bisacodyL 10 MG SUPP PR PRN (16:41)
--- NOTE | 2021-06-18 16:47 | Hospitalist Progress Note ---
Date of Service June 18, 2021 Assessment & Plan (1) Sepsis with acute respiratory failure and septic shock: Plan: This patient is in 81 y/o WF with a PMHx of Hypothyroidism and recurrent pancreatitis admitted 06/10 with acute pancreatitis (Lipase 7778)-- recurrent issues without obvious cause, suspected idiopathic pancreatitis versus autoimmune-daughter reports that this is patient's 12th episode of pancreatitis in her lifetime Previously had gallbladder sludge but patient had declined to have cholecystectomy several years ago and gallbladder ultrasound here again with gallbladder sludge She had EUS which showed pancreatic head cyst in 2018 but then did not return for follow-up EUS at [place] as planned [address] of A/P: pancreatitis without cyst/pseudocyst and ductal dilation LFT's initially WNL and then only mild elevation in AST after that, total bilirubin normal MRCP: pancreatitis without cyst/pseudocyst/abscess or ductal dilation Triglyceride level WNL: 28 No evidence of hypercalcemia Patient does not drink ETOH-confirmed with family Procalcitonin peaked at 60 and is now continues to trend downward to 23 - seen by GI early on in the course of admission and plan was for EUS as OP with Dr. Mclain - Patient did not tolerate clear liquids-- had increased pain and nausea with multiple bouts of emesis which led to aspiration pneumonitis, hypoxia, as well as rapid atrial fibrillation and profound hypotension requiring emergent DC cardioversion and emergent intubation and was transferred to the ICU on the night of 06/11 -Chest x-ray consistent with aspiration pneumonia and she had bronchoscopy to clear out the lungs by pulmonology Acute respiratory failure with hypoxia secondary to ARDS plus some volume overload -She was started on IV amiodarone and was started on 3 pressors and eventually stabilized, but then was back on phenylephrine on 06/15 for rapid atrial fibrillation causing hypotension-now weaned off pressors again -Also now completely weaned off IV hydrocortisone She self extubated on 06/13 but remained significantly encephalopathic for many days-was agitated, not able to follow commands or answer questions appropriately, requiring IV Haldol at times-now improving since 06/17 On 06/16-spiking fevers-none since changing cefepime/Flagyl to Zosyn Blood cultures now growing gram-positive cocci in chains from 06/16 Suspect sepsis was from aspiration pneumonia Much improved overall on 06/18 -Continue IV Zosyn -Repeat blood cultures in the morning to ensure sterility -Echocardiogram performed earlier this admission without evidence of vegetation on the valves -Follow blood cultures for final ID and sensitivity -Follow CBC -Was on stress dose steroids with hydrocortisone which is now being weaned off- accounts somewhat for leukocytosis -Continue to monitor urine output, blood pressures -Monitor CBC, CMP Appreciate parks and recreation manager management-downgrade out of ICU (2) Encephalopathy acute: Plan: Profound, after self extubation, was continuing to be quite agitated as per nursing staff and trying to pull out her tubes and lines, is shouting out things that do not make sense, not able to follow commands Since 06/15, she is less agitated and weaned off Precedex drip, but continued to be minimally interactive, does not follow commands, does not speak most of the time when asked questions On 06/16 and 06/17, she was given Narcan which did seem to really perk her up a bit. On 06/18, much improved but intermittently confused, lethargic, but is interactive and out of bed to chair, no longer agitated. Perhaps this was all combination of opioid-induced delirium plus hypernatremia plus sepsis and hypotension, aspiration pneumonia. She also has not moved her bowels in 8 days Doubt Wernicke's as she did not improve significantly right after receiving high-dose IV thiamine Ammonia level was normal Neurology consultation appreciated 06/17-CT head negative, EEG negative for seizure activity but showed encephalopathy moderate -Continue to treat pneumonia and septicemia -Continue to support blood pressure as needed -Avoidance of opioids -Appreciate psychiatry and neurology consultation -Continue thiamine but convert to p.o. -Consider MRI of the brain if able to tolerate, but doubt will be of high yield -Ensure she is moving her bowels-added on bisacodyl suppository and docusate for now -Continue to treat hypoxia with supplemental O2 -Now has passed speech evaluation-aspirating thin liquids but is okay for minced and moist diet -Continue enteral feeds through tomorrow and then discontinue if taking improved amounts of p.o. (3) Atrial fibrillation with RVR: Plan: - Likely sepsis-driven due to catecholamine release -Echocardiogram here with hyperdynamic LV, severe LVH, elevated RVSP at 50-60 mmHg -With profound hypotension as above requiring urgent DC cardioversion earlier in her hospital stay and then again requiring phenylephrine -Amiodarone drip now converted to p.o. amiodarone -Continue therapeutic Lovenox and eventually convert to DOAC when taking p.o. Remains in sinus rhythm now with very frequent ectopy -Increase metoprolol to 25 mg p.o. twice daily and titrate up as able to -Continue to monitor on telemetry -Continue to keep electrolytes replaced (4) Hypothyroid: Plan: TSH here normal at 1.9 Convert IV levothyroxine to p.o. (5) Acute pancreatitis: Plan: As above, idiopathic versus autoimmune? This is apparently her 12th episode of pancreatitis as per family She is noted to not have any alcohol history which is confirmed by family however her MCV is quite elevated without anemia which may suggest underlying liver disease although synthetic function normal and liver appears normal on imaging Possibly secondary to gallbladder sludge Also had pancreatic cyst seen on EUS in 2018-this needs repeat EUS for follow-up in 4 weeks after discharge Patient now denying abdominal pain, no tenderness on examination Pancreatitis seems to be resolved (6) Hiatal hernia: Plan: Large hiatal hernia with approximately half the stomach located in the thoracic cavity noted on CT abdomen/pelvis-this puts her at increased risk for aspiration Continues on IV Protonix here once daily (7) Aspiration pneumonia: Plan: As above, continues with now grossly productive cough, remains hypoxic requiring 4 L nasal cannula, and mentation is improving Chest x-ray with left lower lobe collapse and pleural effusion but slightly improved from previous Procalcitonin trending downward, but with fevers on 06/16-changed antibiotics to Zosyn (from cefepime and metronidazole) Leukocytosis persists-somewhat steroid-induced but also from infection -With positive blood cultures as above Monitor chest x-ray and oxygenation NG tube placed for enteral feeds Speech therapy seen and cleared for diet but does still have some aspiration of thin liquids (8) CRUZ (acute kidney injury): Plan: With creatinine elevated to 1.68 at peak and now improved to normal Likely secondary to ATN from hypotension and septic shock She is making urine, Cain catheter remains in place Follow BMP Renally dose medications (9) Fever: Plan: As above, now resolved (10) Hypercholesterolemia: Plan: Holding home krill oil (11) Hypertension: Plan: With hypotension as above now while in atrial fibrillation which is now resolved and is actually hypertensive now in a sinus rhythm Now on metoprolol for rapid atrial fibrillation Not on medications at home for this Was started on amlodipine 10 mg on 06/17 by ICU-we will discontinue and focus on titrating up metoprolol given atrial fibrillation and frequent ectopy -Increase metoprolol to 25 mg p.o. twice daily (12) Macrocytosis: Plan: B12 and folate normal No history of alcohol use Synthetic liver function seems normal Question if has early MDS? Follow as an outpatient (13) Hypernatremia: Plan: Sodium stable today at 147 Continue tube feeds and free water flushes, now encouraging p.o. intake of water Follow BMP (14) Septicemia: Plan: As above with positive blood cultures (15) Hypophosphatemia: Plan: Replace with IV phosphorus Follow level in the morning (16) Edema: Plan: With anasarca all over, but is intravascularly volume depleted with hypernatremia Follow and avoid diuretics at this time Plan: DVT prophylaxis-now on therapeutic dose Lovenox Disposition-continued stay but can downgrade to the PCU Admission and Anticipated Discharge Date Admission Date: June 10, 2021 Subjective Patient much more awake and interactive today. She is out of bed to chair. She denies any abdominal pains. She is coughing up a lot of phlegm as per her . She still seems a bit confused at times. She was seen by speech therapy and is aspirating some thin liquids but otherwise did okay with eating although her appetite is not great. Telemetry with sinus rhythm with very frequent ectopy Review of Systems Review of Systems: All systems reviewed & are unremarkable except as noted in HPI & below Physical Exam Constitutional: WD/WN, vitals as above average body habitus; no acute distress and not lethargic Eyes: + anicteric sclerae ENMT: external ear and nose normal, oropharynx normal (With dry tongue and lips) Nose: + external nose abnormality (NG tube in place) Neck: trachea midline, no thyromegaly Respiratory: normal respiratory effort and + cough (Moderate nonproductive cough); no labored breathing Auscultation: + crackles (Bibasilar) and + rhonchi (Bilateral) Cardiovascular: RRR, no murmur, no edema (With frequent ectopy) Extremities: + edema (Anasarca) Chest (Breasts): Chest: normal inspection of chest Gastrointestinal (Abdomen): normal bowel sounds, soft, nontender, no hepatosplenomegaly Musculoskeletal: Extremities: no cyanosis and no clubbing Skin: no rashes, warm and dry + ecchymosis (On arms) Neurologic: moves all extremities and awake; no focal motor deficits Psychiatric: Orientation: alert (But drowsy), oriented to person and oriented to place Genitourinary: Cain catheter in place draining slightly cloudy yellow urine Results & Data Results & Data ([facility]) Vital Signs (Past 12 Hours) Vital Signs Temp Pulse Resp BP Pulse Ox 06/18/21 12:00 37.3 C 70 26 H 95 06/18/21 11:00 83 30 H 93 06/18/21 10:00 75 19 136/74 93 06/18/21 09:00 76 25 H 159/68 H 93 06/18/21 08:00 37.3 C 69 18 168/88 H 95 06/18/21 07:00 63 20 146/83 H 95 06/18/21 06:00 68 26 H 112/59 L 93 Laboratory Results 06/18/21 06/18/21 06/18/21 Range/Units 18:33 12:15 03:54 WBC (4.8-10.8) K/uL RBC (4.2-5.4) M/uL Hgb (12.0-16.0) g/dL Hct (37-47) % MCV (80-100) fL MCH (25-34) pg MCHC (32-36) g/dL RDW Std Deviation (36.4-46.3) fL RDW Coeff of Estrellita (11.5-14.5) % Plt Count (130-400) K/uL MPV (7.4-10.4) fL Sodium 146 H (136-145) mmol/L Potassium 3.8 (3.5-5.1) mmol/L Chloride 117 H (98-107) mmol/L Carbon Dioxide 26 (21-32) mmol/L Anion Gap 3.0 (3-11) BUN 35 H (7-18) mg/dl Creatinine 0.77 (0.6-1.2) mg/dl Est Cr Clr Drug Dosing 52.4 ml/min Est GFR ( Amer) 83.3 ml/min Est GFR (Non-Af Amer) 71.9 ml/min BUN/Creatinine Ratio 45.8 H (10-20) Glucose 159 H (70-99) mg/dl POC Glucose 162 H 149 H (70-99) mg/dl Calcium 9.0 (8.5-10.1) mg/dl Phosphorus 1.8 L (2.5-4.9) mg/dl Magnesium 2.3 (1.8-2.4) mg/dl 06/18/21 Range/Units 03:54 WBC 19.99 H (4.8-10.8) K/uL RBC 4.32 (4.2-5.4) M/uL Hgb 14.1 (12.0-16.0) g/dL Hct 42.7 (37-47) % MCV 98.8 (80-100) fL MCH 32.6 (25-34) pg MCHC 33.0 (32-36) g/dL RDW Std Deviation 52.1 H (36.4-46.3) fL RDW Coeff of Estrellita 14.4 (11.5-14.5) % Plt Count 326 (130-400) K/uL MPV 10.1 (7.4-10.4) fL Sodium (136-145) mmol/L Potassium (3.5-5.1) mmol/L Chloride (98-107) mmol/L Carbon Dioxide (21-32) mmol/L Anion Gap (3-11) BUN (7-18) mg/dl Creatinine (0.6-1.2) mg/dl Est Cr Clr Drug Dosing ml/min Est GFR ( Amer) ml/min Est GFR (Non-Af Amer) ml/min BUN/Creatinine Ratio (10-20) Glucose (70-99) mg/dl POC Glucose (70-99) mg/dl Calcium (8.5-10.1) mg/dl Phosphorus (2.5-4.9) mg/dl Magnesium (1.8-2.4) mg/dl PG Care Time/CCT Total # of Minutes Spent Total Time Spent with Patient: Total time spent is greater than 50% in coordination of care (as documented) at patient's floor/unit and/or counseling patient: Coding Level of Care Code 54510 Subseq Hosp Care Lvl 3 Diagnoses Sepsis with acute respiratory failure and septic shock A41.9; R65.21; J96.00 Encephalopathy acute G93.40 Atrial fibrillation with RVR I48.91 Hypothyroid E03.9 Acute pancreatitis K85.90 Acute pancreatitis complication: unspecified Pancreatitis type: unspecified pancreatitis type Hiatal hernia K44.9 Aspiration pneumonia J69.0 CRUZ (acute kidney injury) N17.9 Fever R50.9 Hypercholesterolemia E78.00 Hypertension I10 Hypertension type: essential hypertension Macrocytosis D75.89 Hypernatremia E87.0 Septicemia A41.9 Hypophosphatemia E83.39 Edema R60.9 (1) Hypertension Hypertension type: essential hypertension Qualified Code(s): I10 - Essential (primary) hypertension (2) Acute pancreatitis Acute pancreatitis complication: unspecified Pancreatitis type: unspecified pancreatitis type Qualified Code(s): K85.90 - Acute pancreatitis without necrosis or infection, unspecified
[2021-06-18] MEDS: PEPTAMEN 1.5 CAL 1,000 ML BAG PO SCH (17:36)
[2021-06-18] MEDS: DOCUSATE SODIUM SYRUP 100 MG/10 ML UDC GT SCH (20:16)
[2021-06-18] MEDS ORDERED: HALOPERIDOL LACTATE 5 MG/ML 1 ML VIAL IM STA (21:03)
[2021-06-19] MEDS: TUBE FEEDING WATER FLUSH GT SCH ×4 (03:20→20:19)
[2021-06-19] MEDS: PIPERACILLIN/TAZOBACTAM 3.375 GM in DEXTROSE 5% 100 ML IV SCH ×2 (03:21→11:58)
[2021-06-19] MEDS: LEVOTHYROXINE SODIUM 88 MCG TABLET PO SCH (05:36)
[2021-06-19 06:00] LABS: Hemoglobin 13.1 g/dL (12.0-16.0); Mean Corpuscular Hemoglobin 31.7 pg (25-34); Mean Corpuscular Volume 99.3 fL (80-100); Platelet Count 352 K/uL (130-400); RDW Coefficient of Variation 14.5 % (11.5-14.5); RDW Standard Deviation 52.7 fL (36.4-46.3); Red Blood Count 4.13 M/uL (4.2-5.4); White Blood Count 18.75 K/uL (4.8-10.8)
[2021-06-19 06:40] LABS: Albumin Level 1.5 gm/dl (3.4-5.0); BUN Creatinine Ratio 45.3 (10-20); Calcium 8.8 mg/dl (8.5-10.1); Est GFR (African American) 96.3 ml/min; Est GFR (Non-African American) 83.1 ml/min; Magnesium 2.2 mg/dl (1.8-2.4); Potassium 3.7 mmol/L (3.5-5.1)
[2021-06-19 06:43] LABS: Albumin Globulin Ratio 0.4 (0.9-2); Bilirubin,Total 0.5 mg/dl (0.2-1); Globulin 3.8 gm/dl (2.5-4.0); Phosphorus 1.9 mg/dl (2.5-4.9); Total Protein 5.3 gm/dl (6.4-8.2)
[2021-06-19] MEDS ORDERED: POTASSIUM PHOS 3 MMOL/1 ML INFUSION IV STA (07:52)
[2021-06-19] MEDS ORDERED: POTASSIUM PHOSPHATE 15 MMOL in SODIUM CHLORIDE 0.9% 250 ML IV ONE (08:15)
[2021-06-19 08:22] LABS: Basophils # (auto) 0.04 K/uL (0-0.2); Basophils % (auto) 0.2 %; Eosinophils % (auto) 0.5 %; Immature Granulocytes # (auto) 1.28 K/uL (0.00-0.02); Immature Granulocytes % (auto) 6.8 %; Lymphocytes # (auto) 1.28 K/uL (1.2-3.4); Lymphocytes % (auto) 6.8 %; Monocytes # (auto) 1.54 K/uL (0.11-0.59); Monocytes % (auto) 8.2 %; Neutrophils # (auto) 14.51 K/uL (1.4-6.5); Neutrophils % (auto) 77.5 %; Ovalocytes 1+; Polychromasia 1+
[2021-06-19] MEDS: AMIODARONE 200 MG TAB PO SCH (08:50)
[2021-06-19] MEDS: ASCORBIC ACID 500 MG TAB GT SCH (08:51)
[2021-06-19] MEDS: ENOXAPARIN 80 MG/0.8 ML SYR SQ SCH ×2 (08:51→20:18)
[2021-06-19] MEDS: METOPROLOL TARTRATE 25 MG TAB PO SCH (08:51)
[2021-06-19] MEDS: DOCUSATE SODIUM SYRUP 100 MG/10 ML UDC GT SCH ×2 (08:51→20:18)
[2021-06-19] MEDS: MULTI VIT W/MINERALS LIQUID 15 ML UDP GT SCH (08:52)
[2021-06-19] MEDS: POLYETHYLENE (MIRALAX) 17 GM PACK NG SCH (08:52)
[2021-06-19] MEDS: THIAMINE HCL 100 MG TAB PO SCH (08:52)
--- NOTE | 2021-06-19 10:14 | Hospitalist Progress Note ---
Date of Service June 19, 2021 Assessment & Plan (1) Sepsis with acute respiratory failure and septic shock: Plan: This patient is in 81 y/o WF with a PMHx of Hypothyroidism and recurrent pancreatitis admitted 06/10 with acute pancreatitis (Lipase [id number])-- recurrent issues without obvious cause, suspected idiopathic pancreatitis versus autoimmune-daughter reports that this is patient's 12th episode of pancreatitis in her lifetime Previously had gallbladder sludge but patient had declined to have cholecystectomy several years ago and gallbladder ultrasound here again with gallbladder sludge She had EUS which showed pancreatic head cyst in 2018 but then did not return for follow-up EUS at [place] as planned [address] of A/P: pancreatitis without cyst/pseudocyst and ductal dilation LFT's initially WNL and then only mild elevation in AST after that, total bilirubin normal MRCP: pancreatitis without cyst/pseudocyst/abscess or ductal dilation Triglyceride level WNL: 28 No evidence of hypercalcemia Patient does not drink ETOH-confirmed with family Procalcitonin peaked at 60 and is now continues to trend downward to 2 - seen by GI early on in the course of admission and plan was for EUS as OP with Dr. Mclain - Patient did not tolerate clear liquids initially- had increased pain and nausea with multiple bouts of emesis which led to aspiration pneumonitis, hypoxia, as well as rapid atrial fibrillation and profound hypotension requiring emergent DC cardioversion, placement on vasopressors and IV amiodarone, and emergent intubation and was transferred to the ICU on the night of 06/11 -Chest x-ray consistent with aspiration pneumonia and she had bronchoscopy to clear out the lungs by pulmonology- Acute respiratory failure with hypoxia secondary to ARDS plus some volume overload -Was then weaned off all vasopressors and weaned off IV hydrocortisone She self extubated on 06/13 but remained significantly encephalopathic for many days-was agitated, not able to follow commands or answer questions appropriately, requiring IV Haldol at times-now improving since 06/17 but still required IV Haldol overnight on 06/18 On 06/16-was spiking fevers-but afebrile since changing cefepime/Flagyl to Zosyn Blood cultures now growing probable Enterococcus from 06/16 Suspect sepsis was from aspiration pneumonia Overall much improved -Given probable Enterococcus, will narrow antibiotic coverage down-switch Zosyn to Unasyn and continue for 14 days from the time of last negative blood cultures which will likely be 07/03/2021 -Repeat blood cultures-no growth to date -Echocardiogram performed earlier this admission without evidence of vegetation on the valves -Follow blood cultures for final ID and sensitivity -Follow CBC -Was on stress dose steroids with hydrocortisone which is now being weaned off- accounts somewhat for leukocytosis which is now improving -Continue to monitor urine output, blood pressures -Monitor CBC, CMP -Discontinue Cain catheter (2) Encephalopathy acute: Plan: Profound, after self extubation, was continuing to be quite agitated as per nursing staff and trying to pull out her tubes and lines, is shouting out things that do not make sense, not able to follow commands Since 06/15, she is less agitated and weaned off Precedex drip, but continued to be minimally interactive, does not follow commands, does not speak most of the time when asked questions On 06/16 and 06/17, she was given Narcan which did seem to really perk her up a bit. On 06/18, much improved but intermittently confused, lethargic, but is interactive and out of bed to chair, no longer agitated. 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 She also has not moved her bowels in 9 days Doubt Wernicke's as she did not improve significantly right after receiving high-dose IV thiamine Ammonia level was normal but now is mildly elevated, likely secondary to severe constipation Neurology consultation appreciated 06/17-CT head negative EEG negative for seizure activity but showed encephalopathy moderate -Continue to treat pneumonia and septicemia as above -Avoidance of opioids -Appreciate psychiatry and neurology consultations -Continue thiamine -Consider MRI of the brain if able to tolerate, but doubt will be of high yield -Ensure she is moving her bowels as this is certainly contributing to encephalopathy along with elevated ammonia level-no bowel movement in 9 days- start bisacodyl suppository now and docusate 100 mg per NG tube twice daily, daily MiraLAX -Continue to treat hypoxia with supplemental O2 -Start olanzapine 2.5 mg p.o. at bedtime scheduled given ongoing delirium worsening at nighttime -Now has passed speech evaluation-aspirating thin liquids only with straws but is okay for minced and moist diet, thin liquids with no straws -Continue enteral feeds through tomorrow and then discontinue if taking improved amounts of p.o. (3) Atrial fibrillation with RVR: Plan: - Likely sepsis-driven due to catecholamine release -Echocardiogram here with hyperdynamic LV, severe LVH, elevated RVSP at 50-60 mmHg -With profound hypotension as above requiring urgent DC cardioversion earlier in her hospital stay and then again requiring phenylephrine -Amiodarone drip now converted to p.o. amiodarone 200 mg once daily -Continue therapeutic Lovenox and eventually convert to DOAC when taking p.o. reliably Remains in sinus rhythm now with very frequent ectopy, improving with increased dose of metoprolol -Increase metoprolol again to 50 mg per NG twice daily and titrate up as able to -Continue to monitor on telemetry -Continue to keep electrolytes replaced-give potassium phosphorus today (4) Hypothyroid: Plan: TSH here normal at 1.9 Continue levothyroxine (5) Acute pancreatitis: Plan: As above, idiopathic versus autoimmune? This is apparently her 12th episode of pancreatitis as per family She is noted to not have any alcohol history which is confirmed by family however her MCV is quite elevated without anemia which may suggest underlying liver disease although synthetic function normal and liver appears normal on imaging Possibly secondary to gallbladder sludge Also had pancreatic cyst seen on EUS in 2018-this needs repeat EUS for follow-up in 4 weeks after discharge Patient now denying abdominal pain, no tenderness on examination Pancreatitis seems to be resolved (6) Hiatal hernia: Plan: Large hiatal hernia with approximately half the stomach located in the thoracic cavity noted on CT abdomen/pelvis-this puts her at increased risk for aspiration Continues on IV Protonix here once daily-convert to Prevacid via NG tube (7) Aspiration pneumonia: Plan: As above, continues with now grossly productive cough, remains hypoxic requiring 4 L nasal cannula, and mentation is improving Chest x-ray with left lower lobe collapse and pleural effusion but slightly imp roved from previous Procalcitonin trending downward, but with fevers on 06/16 Leukocytosis improving-somewhat steroid-induced but also from infection With positive blood cultures as above -Initially on cefepime and metronidazole x5 days, then improved more after starting IV Zosyn x3 days, now narrowed down to Unasyn on 06/19-last day of treatment for pneumonia will be 11/10 Monitor chest x-ray and oxygenation NG tube placed for enteral feeds-plans to wean off once taking better p.o. Speech therapy seen and cleared for minced and moist diet, thin liquids with no straws -Continue incentive spirometry and flutter valve as tolerated -Aspiration precautions (8) CRUZ (acute kidney injury): Plan: With creatinine elevated to 1.68 at peak and now improved to normal Likely secondary to ATN from hypotension and septic shock She is making urine, Cain catheter remains in place Follow BMP Renally dose medications (9) Fever: Plan: As above, now resolved (10) Hypercholesterolemia: Plan: Holding home krill oil (11) Hypertension: Plan: With hypotension as above now while in atrial fibrillation which is now resolved and is actually hypertensive now in a sinus rhythm Now on metoprolol for rapid atrial fibrillation Not on medications at home for this With persistently elevated blood pressures now -Increase metoprolol as above again today to 50 mg p.o. twice daily (12) Macrocytosis: Plan: B12 and folate normal No history of alcohol use Synthetic liver function seems normal Question if has early MDS? Follow as an outpatient (13) Hypernatremia: Plan: Sodium stable again today at 147 Continue tube feeds and increased dose of free water flushes to 250 mL per NG every 6 hour, -Encourage p.o. intake of free water Follow BMP (14) Septicemia: Plan: As above with positive blood cultures Plan to continue Unasyn for now for aspiration pneumonia, but then can convert to IV ampicillin alone for Enterococcus bacteremia through 07/03 (15) Hypophosphatemia: Plan: Replace with IV potassium phosphorus Follow level in the morning (16) Edema: Plan: With anasarca all over which is improved today but is intravascularly volume depleted with hypernatremia Follow and avoid diuretics at this time -Improve nutrition and albumin Plan: DVT prophylaxis-now on therapeutic dose Lovenox for atrial fibrillation Disposition-continued stay in PCU Admission and Anticipated Discharge Date Admission Date: June 10, 2021 Subjective Patient was agitated overnight, continuously trying to climb out of bed. She was given IV Haldol. This morning, she is doing better, interactive and oriented, but still lethargic at times. She denies any abdominal pains, no nausea. She has not had a bowel movement in 9 days but feels like may be she will today. She is still coughing up sputum. She is back on a one-to-one sitter. Telemetry with sinus rhythm with frequent ectopy. Review of Systems Review of Systems: All systems reviewed & are unremarkable except as noted in HPI & below Physical Exam Constitutional: WD/WN, vitals as above average body habitus; no acute distress and not lethargic Eyes: + anicteric sclerae ENMT: Nose: + external nose abnormality (NG tube in place) Neck: trachea midline, no thyromegaly Respiratory: normal respiratory effort and + cough (Moderate nonproductive cough); no labored breathing Auscultation: + diminished lung sounds (At the bases) and + crackles (Bibasilar); no rhonchi Cardiovascular: RRR, no murmur, no edema (With frequent ectopy) Rate/Rhythm: + tachycardic and + irregularly irregular Extremities: + edema (1+, improved from yesterday) Chest (Breasts): Chest: normal inspection of chest Gastrointestinal (Abdomen): normal bowel sounds, soft, nontender, no hepatos plenomegaly Musculoskeletal: Extremities: no cyanosis and no clubbing Skin: no rashes, warm and dry + ecchymosis (On arms) Neurologic: moves all extremities and awake; no focal motor deficits Psychiatric: Orientation: alert (But drowsy), oriented to person, oriented to place and oriented to time (Year and month) Genitourinary: Cain catheter in place Results & Data Results & Data ([facility]) Vital Signs (Past 12 Hours) Vital Signs Temp Pulse Resp BP Pulse Ox 06/19/21 07:16 36.7 C 20 130/80 94 06/19/21 02:55 36.2 C L 81 21 142/58 H 94 06/19/21 00:00 85 06/18/21 23:00 36.3 C L 78 28 H 142/62 H 93 Laboratory Results 06/19/21 06/19/21 06/19/21 Range/Units 05:40 05:40 05:40 WBC 18.75 H (4.8-10.8) K/uL RBC 4.13 L (4.2-5.4) M/uL Hgb 13.1 (12.0-16.0) g/dL Hct 41.0 (37-47) % MCV 99.3 (80-100) fL MCH 31.7 (25-34) pg MCHC 32.0 (32-36) g/dL RDW Std Deviation 52.7 H (36.4-46.3) fL RDW Coeff of Estrellita 14.5 (11.5-14.5) % Plt Count 352 (130-400) K/uL MPV 10.0 (7.4-10.4) fL Immature Gran % (Auto) 6.8 % Neut % (Auto) 77.5 % Lymph % (Auto) 6.8 % Carson % (Auto) 8.2 % Eos % (Auto) 0.5 % Baso % (Auto) 0.2 % Neut # (Auto) 14.51 H (1.4-6.5) K/uL Lymph # (Auto) 1.28 (1.2-3.4) K/uL Carson # (Auto) 1.54 H (0.11-0.59) K/uL Eos # (Auto) 0.10 (0-0.5) K/uL Baso # (Auto) 0.04 (0-0.2) K/uL Immature Gran # (Auto) 1.28 H (0.00-0.02) K/uL Polychromasia 1+ Ovalocytes 1+ Sodium (136-145) mmol/L Potassium (3.5-5.1) mmol/L Chloride (98-107) mmol/L Carbon Dioxide (21-32) mmol/L Anion Gap (3-11) BUN (7-18) mg/dl Creatinine (0.6-1.2) mg/dl Est Cr Clr Drug Dosing ml/min Est GFR ( Amer) ml/min Est GFR (Non-Af Amer) ml/min BUN/Creatinine Ratio (10-20) Glucose (70-99) mg/dl POC Glucose (70-99) mg/dl Calcium (8.5-10.1) mg/dl Phosphorus (2.5-4.9) mg/dl Magnesium (1.8-2.4) mg/dl Total Bilirubin (0.2-1) mg/dl AST (15-37) U/L ALT (12-78) U/L Alkaline Phosphatase (45-117) U/L Ammonia 35.0 H (11-32) umol/L Total Protein (6.4-8.2) gm/dl Albumin (3.4-5.0) gm/dl Globulin (2.5-4.0) gm/dl Albumin/Globulin Ratio (0.9-2) Procalcitonin 2.15 H (0-0.5) ng/ml 06/19/21 06/18/21 Range/Units 05:40 18:33 WBC (4.8-10.8) K/uL RBC (4.2-5.4) M/uL Hgb (12.0-16.0) g/dL Hct (37-47) % MCV (80-100) fL MCH (25-34) pg MCHC (32-36) g/dL RDW Std Deviation (36.4-46.3) fL RDW Coeff of Estrellita (11.5-14.5) % Plt Count (130-400) K/uL MPV (7.4-10.4) fL Immature Gran % (Auto) % Neut % (Auto) % Lymph % (Auto) % Carson % (Auto) % Eos % (Auto) % Baso % (Auto) % Neut # (Auto) (1.4-6.5) K/uL Lymph # (Auto) (1.2-3.4) K/uL Carson # (Auto) (0.11-0.59) K/uL Eos # (Auto) (0-0.5) K/uL Baso # (Auto) (0-0.2) K/uL Immature Gran # (Auto) (0.00-0.02) K/uL Polychromasia Ovalocytes Sodium 146 H (136-145) mmol/L Potassium 3.7 (3.5-5.1) mmol/L Chloride 116 H (98-107) mmol/L Carbon Dioxide 27 (21-32) mmol/L Anion Gap 3.0 (3-11) BUN 29 H (7-18) mg/dl Creatinine 0.64 (0.6-1.2) mg/dl Est Cr Clr Drug Dosing 63.0 ml/min Est GFR ( Amer) 96.3 ml/min Est GFR (Non-Af Amer) 83.1 ml/min BUN/Creatinine Ratio 45.3 H (10-20) Glucose 193 H (70-99) mg/dl POC Glucose 162 H (70-99) mg/dl Calcium 8.8 (8.5-10.1) mg/dl Phosphorus 1.9 L (2.5-4.9) mg/dl Magnesium 2.2 (1.8-2.4) mg/dl Total Bilirubin 0.5 (0.2-1) mg/dl AST 15 (15-37) U/L ALT 15 (12-78) U/L Alkaline Phosphatase 39 L (45-117) U/L Ammonia (11-32) umol/L Total Protein 5.3 L (6.4-8.2) gm/dl Albumin 1.5 L (3.4-5.0) gm/dl Globulin 3.8 (2.5-4.0) gm/dl Albumin/Globulin Ratio 0.4 L (0.9-2) Procalcitonin (0-0.5) ng/ml PG Care Time/CCT Total # of Minutes Spent Total Time Spent with Patient: Total time spent is greater than 50% in coordination of care (as documented) at patient's floor/unit and/or counseling patient: Coding Level of Care Code 98701 Subseq Hosp Care Lvl 3 Diagnoses Sepsis with acute respiratory failure and septic shock A41.9; R65.21; J96.00 Encephalopathy acute G93.40 Atrial fibrillation with RVR I48.91 Hypothyroid E03.9 Acute pancreatitis K85.90 Acute pancreatitis complication: unspecified Pancreatitis type: unspecified pancreatitis type Hiatal hernia K44.9 Aspiration pneumonia J69.0 CRUZ (acute kidney injury) N17.9 Fever R50.9 Hypercholesterolemia E78.00 Hypertension I10 Hypertension type: essential hypertension Macrocytosis D75.89 Hypernatremia E87.0 Septicemia A41.9 Hypophosphatemia E83.39 Edema R60.9 (1) Hypertension Hypertension type: essential hypertension Qualified Code(s): I10 - Essential (primary) hypertension (2) Acute pancreatitis Acute pancreatitis complication: unspecified Pancreatitis type: unspecified pancreatitis type Qualified Code(s): K85.90 - Acute pancreatitis without necrosis or infection, unspecified
[2021-06-19] MEDS: PANTOprazole 40 MG in SYRINGE 0 ML IV SCH (10:59)
[2021-06-19] MEDS: OLANZapine ZYDIS 5 MG ORALLY DIS. TAB PO SCH (20:18)
[2021-06-19] MEDS: METOPROLOL TARTRATE 50 MG TAB PO SCH (20:19)
[2021-06-19] MEDS: AMPICILLIN/SULBACTAM SOD 3,000 MG in 0.9 % SODIUM CHLORIDE 100 ML IV SCH (20:19)
[2021-06-20] MEDS: PEPTAMEN 1.5 CAL 1,000 ML BAG PO SCH (00:39)
[2021-06-20] MEDS: AMPICILLIN/SULBACTAM SOD 3,000 MG in 0.9 % SODIUM CHLORIDE 100 ML IV SCH ×4 (01:33→20:24)
[2021-06-20] MEDS: TUBE FEEDING WATER FLUSH GT SCH ×2 (01:34→08:32)
[2021-06-20 05:30] LABS: Hematocrit (blood only) 38.4 % (37-47); Hemoglobin 12.2 g/dL (12.0-16.0); Mean Corpuscular Hemoglobin 31.9 pg (25-34); Mean Corpuscular Hgb Conc 31.8 g/dL (32-36); Mean Corpuscular Volume 100.5 fL (80-100); Mean Platelet Volume 9.9 fL (7.4-10.4); Platelet Count 357 K/uL (130-400); RDW Coefficient of Variation 14.6 % (11.5-14.5); RDW Standard Deviation 53.2 fL (36.4-46.3); Red Blood Count 3.82 M/uL (4.2-5.4); White Blood Count 20.38 K/uL (4.8-10.8)
[2021-06-20] MEDS: LEVOTHYROXINE SODIUM 88 MCG TABLET PO SCH (05:51)
[2021-06-20 05:53] LABS: Basophils # (auto) 0.04 K/uL (0-0.2); Basophils % (auto) 0.2 %; Eosinophils # (auto) 0.21 K/uL (0-0.5); Immature Granulocytes # (auto) 1.03 K/uL (0.00-0.02); Immature Granulocytes % (auto) 5.1 %; Lymphocytes # (auto) 1.49 K/uL (1.2-3.4); Lymphocytes % (auto) 7.3 %; Monocytes # (auto) 1.49 K/uL (0.11-0.59); Monocytes % (auto) 7.3 %; Neutrophils # (auto) 16.12 K/uL (1.4-6.5); Neutrophils % (auto) 79.1 %; Polychromasia 1+
[2021-06-20 05:56] LABS: Albumin Level 1.5 gm/dl (3.4-5.0); BUN Creatinine Ratio 39.8 (10-20); Calcium 8.8 mg/dl (8.5-10.1); Creatinine Clr Calc Pharmacy 66.1 ml/min; Est GFR (African American) 97.8 ml/min; Est GFR (Non-African American) 84.4 ml/min; Magnesium 2.1 mg/dl (1.8-2.4); Potassium 4.1 mmol/L (3.5-5.1)
[2021-06-20 05:59] LABS: Albumin Globulin Ratio 0.4 (0.9-2); Bilirubin,Total 0.4 mg/dl (0.2-1); Globulin 3.7 gm/dl (2.5-4.0); Phosphorus 2.1 mg/dl (2.5-4.9); Total Protein 5.2 gm/dl (6.4-8.2)
--- NOTE | 2021-06-20 07:57 | XRay Report ---
[facility] CLINICAL HISTORY: severe constipation,pancreatitis COMPARISON STUDY: CT of the abdomen and pelvis June 10, 2021. FINDINGS: Tip of feeding tube is within the body of the stomach. The bowel gas pattern is normal. Mod erate to large amount of stool within the colon and rectum is noted. IMPRESSION: 1. No evidence for a bowel obstruction. 2. Moderate to large amount of stool within the colon and rectum. ACT 112: Negative or not required by law. Electronically signed by: Shiva Jones M.D. 06/20/2021 7:55 AM
--- NOTE | 2021-06-20 08:09 | XRay Report ---
XR chest 1V portable HISTORY: 81 years-old Female f/u pneumonia,hypoxia acute shortness of breath with pneumonia COMPARISON: Chest radiograph 06/17/2021 TECHNIQUE: Portable AP view of the chest FINDINGS: Cardiac silhouette is enlarged. Enteric tube courses below the diaphragm outside the [id number]. N o pneumothorax. Layering pleural effusions with bibasilar consolidation. Mildly improved aeration of the left lung. Interstitial coarsening with pulmonary vascular congestion and right lung predominant airspace opacities. Calcified granuloma of the left lung base. Degenerative changes of the shoulders and spine. IMPRESSION: 1. Cardiomegaly with mixed interstitial and alveolar opacities redemonstrated. There is mildly improv ed aeration of the left lung. 2. Small pleural effusions. 3. Hiatal hernia. ACT 112: Negative or not required by law. The above report was generated using voice recognition software. It may contain grammatical, syntax o r spelling errors. Electronically signed by: Mk Kulkarni M.D. 06/20/2021 8:08 AM
[2021-06-20] MEDS: THIAMINE HCL 100 MG TAB PO SCH (08:33)
[2021-06-20] MEDS: METOPROLOL TARTRATE 50 MG TAB PO SCH ×2 (08:33→20:25)
[2021-06-20] MEDS: ASCORBIC ACID 500 MG TAB GT SCH (08:33)
[2021-06-20] MEDS: ENOXAPARIN 80 MG/0.8 ML SYR SQ SCH ×2 (08:34→20:24)
[2021-06-20] MEDS: AMIODARONE 200 MG TAB PO SCH (08:34)
[2021-06-20] MEDS: MULTI VIT W/MINERALS LIQUID 15 ML UDP GT SCH (08:35)
[2021-06-20] MEDS ORDERED: LANSOPRAZOLE 15 MG SOLTAB NG SCH (09:00)
[2021-06-20] MEDS ORDERED: bisacodyL 10 MG SUPP PR SCH (09:00)
[2021-06-20] MEDS ORDERED: CARBOHYDRATES FOR HYPOGLYCEMIA PO PRN (10:20)
[2021-06-20] MEDS ORDERED: DEXTROSE 50% 50 ML SYRINGE IV PRN (10:20)
[2021-06-20] MEDS ORDERED: GLUCOSE 10 TABS/TUBE PO PRN (10:20)
[2021-06-20] MEDS ORDERED: GLUCAGON FOR INJ 1 MG VIAL SQ PRN (10:20)
[2021-06-20] MEDS ORDERED: bisacodyL 10 MG SUPP PR PRN (10:20)
[2021-06-20] MEDS ORDERED: GLUCOSE 40% GEL 15 GM TUBE PO PRN (10:20)
[2021-06-20] MEDS ORDERED: DEXTROSE 5% 1,000 ML IV SCH (10:30)
--- NOTE | 2021-06-20 10:33 | Hospitalist Progress Note ---
Date of Service June 20, 2021 Assessment & Plan (1) Sepsis with acute respiratory failure and septic shock: Plan: This patient is an 81 y/o WF with a PMHx of Hypothyroidism and recurrent pancreatitis admitted 06/10 with acute pancreatitis (Lipase [id number])-- recurrent issues without obvious cause, suspected idiopathic pancreatitis versus autoimmune-daughter reports that this is patient's 12th episode of pancreatitis in her lifetime Treatment of pancreatitis as below - seen by GI early on in the course of admission and plan was for EUS as OP with Dr. Mclain - Patient did not tolerate clear liquids initially- had increased pain and nausea with multiple bouts of emesis which led to aspiration pneumonitis, hypoxia, as well as rapid atrial fibrillation and profound hypotension requiring emergent DC cardioversion, placement on vasopressors and IV amiodarone, and emergent intubation and was transferred to the ICU on the night of 06/11 -Chest x-ray consistent with aspiration pneumonia and she had bronchoscopy to clear out the lungs by pulmonology- Acute respiratory failure with hypoxia secondary to ARDS plus some volume overload -Was then weaned off all vasopressors and weaned off IV hydrocortisone She self extubated on 06/13 but remained significantly encephalopathic for many days-was agitated, not able to follow commands or answer questions appropriately, requiring IV Haldol at times-now much improvedsince 06/17 but still required IV Haldol overnight on 06/18. Started scheduled Zyprexa low dose on the evening of 06/19. On 06/16-was spiking fevers-but afebrile since changing cefepime/Flagyl to Zosyn Blood cultures now growing Enterococcus faecalis and Staphylococcus species (most likely coagulase-negative staph) from 06/16 Repeat blood cultures 06/19-no growth to date Suspect sepsis was from aspiration pneumonia. No evidence of necrotizing pancreatitis On 06/20--> Overall much improved, but remains severely debilitated Procalcitonin peaked at 60 and is now continues to trend downward to 2 Leukocytosis persists likely due to combination of severe constipation, atelectasis and pneumonia, and some from previous stress dose steroids. Repeat UA on 06/20 - for infection, and repeat chest x-ray 06/20 shows persistent pneumonia and atelectasis. KUB shows moderate to severe amount of stool burden but no obstruction. Fortunately, remains afebrile. Initially treated with cefepime and Flagyl x5 days but did not improve, was then switched to Zosyn for 3 days and had improvement. Culture results came back and converted to Unasyn -Continue Unasyn for now for treatment of aspiration pneumonia through 06/23, and then convert to IV ampicillin alone for the Enterococcus bacteremia to continue for 14 days from the time of last negative blood cultures which will likely be 07/03/2021 -Repeat blood cultures-no growth to date-continue to follow -Echocardiogram performed earlier this admission without evidence of vegetation on the valves -Follow CBC, CMP -Asked nurse to continue to mobilize patient out of bed to chair, encourage use of incentive spirometer -Continue to work on bowel regimen for severe constipation (2) Encephalopathy acute: Plan: Profound, after self extubation, was continuing to be quite agitated as per nursing staff and trying to pull out her tubes and lines, is shouting out things that do not make sense, not able to follow commands Since 06/15, she is less agitated and weaned off Precedex drip, but continued to be minimally interactive, was not following commands, does not speak most of the time when asked questions On 06/16 and 06/17, she was given Narcan which did seem to really perk her up a bit. On 06/18, much improved but intermittently confused, lethargic, but is interactive and out of bed to chair, no longer agitated. On 06/19, did require 1 dose of IV Haldol in the silo worker hours for trying to climb out of bed repeatedly, but improved during the daytime On 06/20, much improved, did not require any IV Haldol after being started on scheduled dose of Zyprexa at bedtime Acute encephalopathy secondary to combination of opioid-induced delirium plus hypernatremia plus sepsis and hypotension, aspiration pneumonia, and severe constipation (no bowel movement for 9 days) Doubt Wernicke's as she did not improve significantly right after receiving high-dose IV thiamine Ammonia level was normal but then became mildly elevated, likely secondary to severe constipation Neurology consultation appreciated 06/17-CT head negative EEG negative for seizure activity but showed encephalopathy moderate -Continue to treat pneumonia and septicemia as above -Pulmonary toilet, mobilization, incentive spirometry -Avoidance of opioids -Appreciate psychiatry and neurology consultations -Continue thiamine -Consider MRI of the brain if able to tolerate, but doubt will be of high yield -Continue bowel regimen-finally had large bowel movement on 06/20 after 9 days of constipation -Continue to treat hypoxia with supplemental O2 -Started olanzapine 2.5 mg p.o. at bedtime scheduled given ongoing delirium worsening at nighttime-this can be weaned off prior to discharge -Now has passed speech evaluation-aspirating thin liquids only with straws but is okay for minced and moist diet, thin liquids with no straws -Discontinue NG tube and tube feeds on 06/20 and encourage p.o. intake (3) Atrial fibrillation with RVR: Plan: - Likely sepsis-driven due to catecholamine release -Echocardiogram here with hyperdynamic LV, severe LVH, elevated RVSP at 50-60 mmHg -With profound hypotension as above associated with rapid atrial fibrillation requiring urgent DC cardioversion earlier in her hospital stay and then again requiring phenylephrine -Amiodarone drip now converted to p.o. amiodarone 200 mg once daily -Continue therapeutic Lovenox and eventually convert to DOAC when taking p.o. reliably Remains in sinus rhythm now with very frequent ectopy, improving with increased dose of metoprolol -Continue metoprolol 50 mg p.o. twice daily and titrate up as able to -Continue to monitor on telemetry -Continue to keep electrolytes replaced-give potassium phosphorus today (4) Hypothyroid: Plan: TSH here normal at 1.9 Continue levothyroxine (5) Hypernatremia: Plan: Sodium slightly improved today to 146 after increasing free water flushes per NG tube Discontinuing NG tube Give 1 L of D5W -Encourage p.o. intake of free water Follow BMP (6) Acute pancreatitis: Plan: With a history of recurrent pancreatitis x12. Has not had an episode in about 2 years Previously had gallbladder sludge but patient had declined to have cholecystectomy several years ago -Gallbladder ultrasound here again with gallbladder sludge She had EUS which showed pancreatic head cyst in 2018 but then did not return for follow-up EUS at [facility] as planned [address] of A/P: pancreatitis without cyst/pseudocyst and ductal dilation LFT's initially WNL and then only mild elevation in AST after that, total bilirubin normal MRCP: pancreatitis without cyst/pseudocyst/abscess or ductal dilation Triglyceride level WNL: 28 No evidence of hypercalcemia Patient does not drink ETOH-confirmed with family Gi thinks idiopathic versus autoimmune vs related to cyst? Possibly secondary to gallbladder sludge She is noted to not have any alcohol history which is confirmed by family however her MCV is quite elevated without anemia which may suggest underlying liver disease although synthetic function normal and liver appears normal on imaging Also had pancreatic cyst seen on EUS in 2018-this needs repeat EUS for follow-up in 4 weeks after discharge Patient now denying abdominal pain, no tenderness on examination Pancreatitis seems to be resolved GI saw patient here and plans for outpatient EUS 1 month after discharge (7) Hiatal hernia: Plan: Large hiatal hernia with approximately half the stomach located in the thoracic cavity noted on CT abdomen/pelvis-this puts her at increased risk for aspiration Initially on IV Protonix here-now converted to p.o. Prevacid (8) Aspiration pneumonia: Plan: As above, continues with now grossly productive cough, remains hypoxic requiring 4 L nasal cannula, and mentation is improving Chest x-ray with left lower lobe collapse and pleural effusion but slightly improved from previous Procalcitonin trending downward, but with fevers on 06/16 Leukocytosis persists-somewhat steroid-induced but also from infection With positive blood cultures as above -Initially on cefepime and metronidazole x5 days, then improved more after starting IV Zosyn x3 days, now narrowed down to Unasyn on 06/19-last day of treatment for pneumonia will be 06/23 (but then needs continued IV ampicillin for bacteremia as above) Monitor chest x-ray and oxygenation-repeat chest x-ray 06/20 similar to slightly improved aeration on the left Initially had NG tube for enteral feeds-discontinue this on 06/20 Speech therapy seen and cleared for minced and moist diet, thin liquids with no straws -Continue incentive spirometry and flutter valve as tolerated -Aspiration precautions (9) CRUZ (acute kidney injury): Plan: With creatinine elevated to 1.68 at peak and now improved to normal Likely secondary to ATN from hypotension and septic shock She is making urine, Cain catheter removed Follow BMP Renally dose medications (10) Fever: Plan: As above, now resolved (11) Hypercholesterolemia: Plan: Holding home krill oil (12) Hypertension: Plan: With hypotension as above now while in atrial fibrillation which is now resolved and is actually hypertensive now in a sinus rhythm Now on metoprolol for previous rapid atrial fibrillation Not on medications at home for this With persistently elevated blood pressures now now improving with increased dose of metoprolol -continue metoprolol 50 mg p.o. twice daily (13) Macrocytosis: Plan: B12 and folate normal No history of alcohol use Synthetic liver function seems normal Question if has early MDS? Follow as an outpatient (14) Septicemia: Plan: As above with positive blood cultures Plan to continue Unasyn for now for aspiration pneumonia, but then can convert to IV ampicillin alone for Enterococcus bacteremia through 07/03 -Will eventually need ultrasound-guided peripheral IV after repeat blood cultures negative x48 hours (15) Hypophosphatemia: Plan: Replace with IV potassium phosphorus Follow level in the morning (16) Edema: Plan: With anasarca all over which is improved today but is intravascularly volume depleted with hypernatremia Follow and avoid diuretics at this time -Improve nutrition and albumin Plan: DVT prophylaxis-now on therapeutic dose Lovenox for atrial fibrillation Disposition-continued stay in PCU Updated her [id number] (NICU nurse) at patient's request who will in turn update her Admission and Anticipated Discharge Date Admission Date: June 10, 2021 Subjective Patient did okay overnight, still very weak and tired, but oriented. She denies any chest pain or shortness of breath but is coughing. She denies any abdominal pains. She had a very large bowel movement finally this morning. She definitely is interested in taking out the NG tube and it would make it easier for her to swallow on her own. She asks "What do I have to do to get out of here?" Telemetry remains with sinus rhythm with frequent ectopy although not nearly as frequent as before Review of Systems Review of Systems: All systems reviewed & are unremarkable except as noted in HPI & below Physical Exam Constitutional: WD/WN, vitals as above average body habitus; no acute distress and not lethargic (But drowsy, wakes up easily and answers questions appropriately) Eyes: + anicteric sclerae ENMT: Nose: + external nose abnormality (NG tube in place) Neck: trachea midline, no thyromegaly Respiratory: normal respiratory effort, lungs clear to auscultation normal respiratory effort and + cough (mild nonproductive cough); no labored breathing Auscultation: + diminished lung sounds (At the bases) and + crackles (Bibasilar); no rhonchi Cardiovascular: RRR, no murmur, no edema (With frequent ectopy) Extremities: + edema (1+, improved from yesterday) Chest (Breasts): Chest: normal inspection of chest Gastrointestinal (Abdomen): normal bowel sounds, soft, nontender, no hepatosplenomegaly Musculoskeletal: Extremities: no cyanosis and no clubbing Skin: no rashes, warm and dry + ecchymosis (On arms) Neurologic: moves all extremities and awake; no focal motor deficits Psychiatric: Orientation: alert (But drowsy), oriented to person, oriented to place and oriented to time (Year and month) Lymphatic: no lymphedema Results & Data Results & Data ([facility] [place]) Vital Signs (Past 12 Hours) Vital Signs Temp Pulse Pulse Resp BP Pulse Ox 06/20/21 07:00 36.6 C 71 16 152/65 H 97 06/20/21 00:57 37 C 74 24 134/69 93 06/20/21 00:00 76 Laboratory Results 06/20/21 06/20/21 06/20/21 Range/Units 10:52 10:35 04:56 WBC 20.38 H (4.8-10.8) K/uL RBC 3.82 L (4.2-5.4) M/uL Hgb 12.2 (12.0-16.0) g/dL Hct 38.4 (37-47) % MCV 100.5 H (80-100) fL MCH 31.9 (25-34) pg MCHC 31.8 L (32-36) g/dL RDW Std Deviation 53.2 H (36.4-46.3) fL RDW Coeff of Estrellita 14.6 H (11.5-14.5) % Plt Count 357 (130-400) K/uL MPV 9.9 (7.4-10.4) fL Immature Gran % (Auto) 5.1 % Neut % (Auto) 79.1 % Lymph % (Auto) 7.3 % Bucks % (Auto) 7.3 % Eos % (Auto) 1.0 % Baso % (Auto) 0.2 % Neut # (Auto) 16.12 H (1.4-6.5) K/uL Lymph # (Auto) 1.49 (1.2-3.4) K/uL Bucks # (Auto) 1.49 H (0.11-0.59) K/uL Eos # (Auto) 0.21 (0-0.5) K/uL Baso # (Auto) 0.04 (0-0.2) K/uL Immature Gran # (Auto) 1.03 H (0.00-0.02) K/uL Polychromasia 1+ Sodium (136-145) mmol/L Potassium (3.5-5.1) mmol/L Chloride (98-107) mmol/L Carbon Dioxide (21-32) mmol/L Anion Gap (3-11) BUN (7-18) mg/dl Creatinine (0.6-1.2) mg/dl Est Cr Clr Drug Dosing ml/min Est GFR ( Amer) ml/min Est GFR (Non-Af Amer) ml/min BUN/Creatinine Ratio (10-20) Glucose (70-99) mg/dl POC Glucose 185 H (70-99) mg/dl Calcium (8.5-10.1) mg/dl Phosphorus (2.5-4.9) mg/dl Magnesium (1.8-2.4) mg/dl Total Bilirubin (0.2-1) mg/dl AST (15-37) U/L ALT (12-78) U/L Alkaline Phosphatase (45-117) U/L Total Protein (6.4-8.2) gm/dl Albumin (3.4-5.0) gm/dl Globulin (2.5-4.0) gm/dl Albumin/Globulin Ratio (0.9-2) Urine Color Dark Yellow Urine Appearance Clear (Clear) Urine pH 5.0 (4.5-7.5) Ur Specific Mcfarlan 1.023 (1.000-1.030) Urine Protein 1+ H (Negative) Urine Glucose (UA) Trace H (Negative) Urine Ketones Trace H (Negative) Urine Blood 2+ H (Negative) Urine Nitrite Negative (Negative) Urine Bilirubin Negative (Negative) Urine Urobilinogen Negative (Negative) Ur Leukocyte Esterase Negative (Negative) Urine WBC (Auto) 0 (0-5) /hpf Urine RBC (Auto) 5-10 H (0-4) /hpf U Hyaline Cast (Auto) 1-5 (0-5) /lpf U Epithel Cells (Auto) 5-10 H (0-5) /lpf Urine Bacteria (Auto) Negative (Negative) Bld Cult Staph aureus PCR (Negative) Blood Culture MRSA PCR (Negative) 06/20/21 06/19/21 Range/Units 04:56 05:41 WBC (4.8-10.8) K/uL RBC (4.2-5.4) M/uL Hgb (12.0-16.0) g/dL Hct (37-47) % MCV (80-100) fL MCH (25-34) pg MCHC (32-36) g/dL RDW Std Deviation (36.4-46.3) fL RDW Coeff of Estrellita (11.5-14.5) % Plt Count (130-400) K/uL MPV (7.4-10.4) fL Immature Gran % (Auto) % Neut % (Auto) % Lymph % (Auto) % Bucks % (Auto) % Eos % (Auto) % Baso % (Auto) % Neut # (Auto) (1.4-6.5) K/uL Lymph # (Auto) (1.2-3.4) K/uL Bucks # (Auto) (0.11-0.59) K/uL Eos # (Auto) (0-0.5) K/uL Baso # (Auto) (0-0.2) K/uL Immature Gran # (Auto) (0.00-0.02) K/uL Polychromasia Sodium 146 H (136-145) mmol/L Potassium 4.1 (3.5-5.1) mmol/L Chloride 115 H (98-107) mmol/L Carbon Dioxide 28 (21-32) mmol/L Anion Gap 3.0 (3-11) BUN 24 H (7-18) mg/dl Creatinine 0.61 (0.6-1.2) mg/dl Est Cr Clr Drug Dosing 66.1 ml/min Est GFR ( Amer) 97.8 ml/min Est GFR (Non-Af Amer) 84.4 ml/min BUN/Creatinine Ratio 39.8 H (10-20) Glucose 150 H (70-99) mg/dl POC Glucose (70-99) mg/dl Calcium 8.8 (8.5-10.1) mg/dl Phosphorus 2.1 L (2.5-4.9) mg/dl Magnesium 2.1 (1.8-2.4) mg/dl Total Bilirubin 0.4 (0.2-1) mg/dl AST 17 (15-37) U/L ALT 17 (12-78) U/L Alkaline Phosphatase 41 L (45-117) U/L Total Protein 5.2 L (6.4-8.2) gm/dl Albumin 1.5 L (3.4-5.0) gm/dl Globulin 3.7 (2.5-4.0) gm/dl Albumin/Globulin Ratio 0.4 L (0.9-2) Urine Color Urine Appearance (Clear) Urine pH (4.5-7.5) Ur Specific Mcfarlan (1.000-1.030) Urine Protein (Negative) Urine Glucose (UA) (Negative) Urine Ketones (Negative) Urine Blood (Negative) Urine Nitrite (Negative) Urine Bilirubin (Negative) Urine Urobilinogen (Negative) Ur Leukocyte Esterase (Negative) Urine WBC (Auto) (0-5) /hpf Urine RBC (Auto) (0-4) /hpf U Hyaline Cast (Auto) (0-5) /lpf U Epithel Cells (Auto) (0-5) /lpf Urine Bacteria (Auto) (Negative) Bld Cult Staph aureus PCR Negative (Negative) Blood Culture MRSA PCR Negative (Negative) PG Care Time/CCT Total # of Minutes Spent Total Time Spent with Patient: Total time spent is greater than 50% in coordination of care (as documented) at patient's floor/unit and/or counseling patient: Coding Level of Care Code 11354 Subseq Hosp Care Lvl 3 Diagnoses Sepsis with acute respiratory failure and septic shock A41.9; R65.21; J96.00 Encephalopathy acute G93.40 Atrial fibrillation with RVR I48.91 Hypothyroid E03.9 Acute pancreatitis K85.90 Acute pancreatitis complication: unspecified Pancreatitis type: unspecified pancreatitis type Hiatal hernia K44.9 Aspiration pneumonia J69.0 CRUZ (acute kidney injury) N17.9 Fever R50.9 Hypercholesterolemia E78.00 Hypertension I10 Hypertension type: essential hypertension Macrocytosis D75.89 Hypernatremia E87.0 Septicemia A41.9 Hypophosphatemia E83.39 Edema R60.9 (1) Hypertension Hypertension type: essential hypertension Qualified Code(s): I10 - Essential (primary) hypertension (2) Acute pancreatitis Acute pancreatitis complication: unspecified Pancreatitis type: unspecified pancreatitis type Qualified Code(s): K85.90 - Acute pancreatitis without necrosis or infection, unspecified
[2021-06-20 10:58] LABS: Appearance Urine Clear (Clear); Bacteria Urine Automated Negative (Negative); Bilirubin Urine Negative (Negative); Blood Urine 2+ (Negative); Color Urine Dark Yellow; Glucose Urine UA Trace (Negative); Ketones Urine Trace (Negative); Leukocyte Esterase Urine Negative (Negative); Nitrite Urine Negative (Negative); Protein Urine 1+ (Negative); Specific Gravity Urine 1.023 (1.000-1.030); Urobilinogen Urine Negative (Negative); WBC Urine Automated 0 /hpf (0-5)
[2021-06-20] MEDS: INSULIN ASPART 100 UNITS/ML 3 ML PEN SC SCH ×3 (11:59→21:46)
[2021-06-20] MEDS: DOCUSATE SODIUM SYRUP 100 MG/10 ML UDC PO SCH (20:24)
[2021-06-20] MEDS: OLANZapine ZYDIS 5 MG ORALLY DIS. TAB PO SCH (20:24)
[2021-06-21] MEDS: DOCUSATE SODIUM SYRUP 100 MG/10 ML UDC GT SCH (00:32)
[2021-06-21] MEDS: POLYETHYLENE (MIRALAX) 17 GM PACK NG SCH (00:33)
[2021-06-21] MEDS: AMPICILLIN/SULBACTAM SOD 3,000 MG in 0.9 % SODIUM CHLORIDE 100 ML IV SCH ×2 (02:23→09:01)
[2021-06-21 04:49] LABS: Basophils # (auto) 0.03 K/uL (0-0.2); Basophils % (auto) 0.1 %; Eosinophils # (auto) 0.24 K/uL (0-0.5); Eosinophils % (auto) 1.1 %; Hematocrit (blood only) 40.3 % (37-47); Hemoglobin 12.8 g/dL (12.0-16.0); Immature Granulocytes # (auto) 0.43 K/uL (0.00-0.02); Lymphocytes # (auto) 1.48 K/uL (1.2-3.4); Lymphocytes % (auto) 6.8 %; Mean Corpuscular Hemoglobin 31.9 pg (25-34); Mean Corpuscular Hgb Conc 31.8 g/dL (32-36); Mean Corpuscular Volume 100.5 fL (80-100); Mean Platelet Volume 9.6 fL (7.4-10.4); Monocytes # (auto) 1.37 K/uL (0.11-0.59); Monocytes % (auto) 6.3 %; Neutrophils % (auto) 83.7 %; Platelet Count 405 K/uL (130-400); RDW Coefficient of Variation 14.3 % (11.5-14.5); RDW Standard Deviation 52.8 fL (36.4-46.3); Red Blood Count 4.01 M/uL (4.2-5.4); White Blood Count 21.85 K/uL (4.8-10.8)
[2021-06-21 05:09] LABS: Albumin Level 1.5 gm/dl (3.4-5.0); BUN Creatinine Ratio 37.7 (10-20); Calcium 8.9 mg/dl (8.5-10.1); Est GFR (African American) 105.9 ml/min; Est GFR (Non-African American) 91.4 ml/min; Potassium 4.1 mmol/L (3.5-5.1)
[2021-06-21] MEDS: LEVOTHYROXINE SODIUM 88 MCG TABLET PO SCH (05:10)
[2021-06-21 05:12] LABS: Albumin Globulin Ratio 0.4 (0.9-2); Bilirubin,Total 0.4 mg/dl (0.2-1); Globulin 3.9 gm/dl (2.5-4.0); Phosphorus 2.4 mg/dl (2.5-4.9); Total Protein 5.4 gm/dl (6.4-8.2)
[2021-06-21 07:46] LABS: Estimated Average Glucose 123 mg/dl; Hemoglobin A1C 5.9 % (4.5-5.6)
[2021-06-21] MEDS: INSULIN ASPART 100 UNITS/ML 3 ML PEN SC SCH ×4 (07:59→20:19)
--- NOTE | 2021-06-21 08:57 | Hospitalist Progress Note ---
Date of Service June 21, 2021 Assessment & Plan (1) Sepsis with acute respiratory failure and septic shock: Plan: This patient is an 81 y/o WF with a PMHx of Hypothyroidism and recurrent pancreatitis admitted 06/10 with acute pancreatitis (Lipase [id number])-- recurrent issues without obvious cause, suspected idiopathic pancreatitis versus autoimmune-daughter reports that this is patient's 12th episode of pancreatitis in her lifetime Treatment of pancreatitis as below - seen by GI early on in the course of admission and plan was for EUS as OP with Dr. Mclain - Patient did not tolerate clear liquids initially- had increased pain and nausea with multiple bouts of emesis which led to aspiration pneumonitis, hypoxia, as well as rapid atrial fibrillation and profound hypotension requiring emergent DC cardioversion, placement on vasopressors and IV amiodarone, and emergent intubation and was transferred to the ICU on the night of 06/11 -Chest x-ray consistent with aspiration pneumonia and she had bronchoscopy to clear out the lungs by pulmonology- Acute respiratory failure with hypoxia secondary to ARDS plus some volume overload -Was then weaned off all vasopressors and weaned off IV hydrocortisone She self extubated on 06/13 but remained significantly encephalopathic for many days-was agitated, not able to follow commands or answer questions appropriately, requiring IV Haldol at times-now much improvedsince 06/17 but still required IV Haldol overnight on 06/18. Started scheduled Zyprexa low dose on the evening of 06/19. On 06/16-was spiking fevers-but afebrile since changing cefepime/Flagyl to Zosyn Blood cultures now growing Enterococcus faecalis and Staphylococcus species (most likely coagulase-negative staph) from 06/16 Repeat blood cultures 06/19-no growth to date Suspect sepsis was from aspiration pneumonia. No evidence of necrotizing pancreatitis On 06/20--> Overall much improved, but remains severely debilitated Procalcitonin peaked at 60 and is now continues to trend downward to 2 Leukocytosis persists likely due to combination of severe constipation, atelectasis and pneumonia, and some from previous stress dose steroids. Repeat UA on 06/20 - for infection, and repeat chest x-ray 06/20 shows persistent pneumonia and atelectasis. KUB shows moderate to severe amount of stool burden but no obstruction. Fortunately, remains afebrile. Initially treated with cefepime and Flagyl x5 days but did not improve, was then switched to Zosyn for 3 days and had improvement. Culture results came back and converted to Unasyn -Continue Unasyn for now for treatment of aspiration pneumonia through 06/23, and then convert to IV ampicillin alone for the Enterococcus bacteremia to continue for 14 days from the time of last negative blood cultures which will likely be 07/03/2021 -Repeat blood cultures-no growth to date-continue to follow -Echocardiogram performed earlier this admission without evidence of vegetation on the valves -Follow CBC, CMP -Asked nurse to continue to mobilize patient out of bed to chair, encourage use of incentive spirometer -Continue to work on bowel regimen for severe constipation (2) Encephalopathy acute: Plan: Profound, after self extubation, was continuing to be quite agitated as per nursing staff and trying to pull out her tubes and lines, is shouting out things that do not make sense, not able to follow commands Since 06/15, she is less agitated and weaned off Precedex drip, but continued to be minimally interactive, was not following commands, does not speak most of the time when asked questions On 06/16 and 06/17, she was given Narcan which did seem to really perk her up a bit. On 06/18, much improved but intermittently confused, lethargic, but is interactive and out of bed to chair, no longer agitated. On 06/19, did require 1 dose of IV Haldol in the java web developer hours for trying to climb out of bed repeatedly, but improved during the daytime On 06/20, much improved, did not require any IV Haldol after being started on scheduled dose of Zyprexa at bedtime Acute encephalopathy secondary to combination of opioid-induced delirium plus hypernatremia plus sepsis and hypotension, aspiration pneumonia, and severe constipation (no bowel movement for 9 days) Doubt Wernicke's as she did not improve significantly right after receiving high-dose IV thiamine Ammonia level was normal but then became mildly elevated, likely secondary to severe constipation Neurology consultation appreciated 06/17-CT head negative EEG negative for seizure activity but showed encephalopathy moderate -Continue to treat pneumonia and septicemia as above -Pulmonary toilet, mobilization, incentive spirometry -Avoidance of opioids -Appreciate psychiatry and neurology consultations -Continue thiamine -Consider MRI of the brain if able to tolerate, but doubt will be of high yield -Continue bowel regimen-finally had large bowel movement on 06/20 after 9 days of constipation -Continue to treat hypoxia with supplemental O2 -Started olanzapine 2.5 mg p.o. at bedtime scheduled given ongoing delirium worsening at nighttime-this can be weaned off prior to discharge -Now has passed speech evaluation-aspirating thin liquids only with straws but is okay for minced and moist diet, thin liquids with no straws -Discontinue NG tube and tube feeds on 06/20 and encourage p.o. intake (3) Atrial fibrillation with RVR: Plan: - Likely sepsis-driven due to catecholamine release -Echocardiogram here with hyperdynamic LV, severe LVH, elevated RVSP at 50-60 mmHg -With profound hypotension as above associated with rapid atrial fibrillation requiring urgent DC cardioversion earlier in her hospital stay and then again requiring phenylephrine -Amiodarone drip now converted to p.o. amiodarone 200 mg once daily -Continue therapeutic Lovenox and eventually convert to DOAC when taking p.o. reliably Remains in sinus rhythm now with very frequent ectopy, improving with increased dose of metoprolol -Continue metoprolol 50 mg p.o. twice daily and titrate up as able to -Continue to monitor on telemetry -Continue to keep electrolytes replaced-give potassium phosphorus today (4) Hypothyroid: Plan: TSH here normal at 1.9 Continue levothyroxine (5) Hypernatremia: Plan: Sodium slightly improved today to 146 after increasing free water flushes per NG tube Discontinuing NG tube Give 1 L of D5W -Encourage p.o. intake of free water Follow BMP (6) Acute pancreatitis: Plan: With a history of recurrent pancreatitis x12. Has not had an episode in about 2 years Previously had gallbladder sludge but patient had declined to have cholecystectomy several years ago -Gallbladder ultrasound here again with gallbladder sludge She had EUS which showed pancreatic head cyst in 2018 but then did not return for follow-up EUS at [place] as planned [address] of A/P: pancreatitis without cyst/pseudocyst and ductal dilation LFT's initially WNL and then only mild elevation in AST after that, total bilirubin normal MRCP: pancreatitis without cyst/pseudocyst/abscess or ductal dilation Triglyceride level WNL: 28 No evidence of hypercalcemia Patient does not drink ETOH-confirmed with family Gi thinks idiopathic versus autoimmune vs related to cyst? Possibly secondary to gallbladder sludge She is noted to not have any alcohol history which is confirmed by family however her MCV is quite elevated without anemia which may suggest underlying liver disease although synthetic function normal and liver appears normal on imaging Also had pancreatic cyst seen on EUS in 2018-this needs repeat EUS for follow-up in 4 weeks after discharge Patient now denying abdominal pain, no tenderness on examination Pancreatitis seems to be resolved GI saw patient here and plans for outpatient EUS 1 month after discharge (7) Hiatal hernia: Plan: Large hiatal hernia with approximately half the stomach located in the thoracic cavity noted on CT abdomen/pelvis-this puts her at increased risk for aspiration Initially on IV Protonix here-now converted to p.o. Prevacid (8) Aspiration pneumonia: Plan: As above, continues with now grossly productive cough, remains hypoxic requiring 4 L nasal cannula, and mentation is improving Chest x-ray with left lower lobe collapse and pleural effusion but slightly improved from previous Procalcitonin trending downward, but with fevers on 06/16 Leukocytosis persists-somewhat steroid-induced but also from infection With positive blood cultures as above -Initially on cefepime and metronidazole x5 days, then improved more after starting IV Zosyn x3 days, now narrowed down to Unasyn on 06/19-last day of treatment for pneumonia will be 06/23 (but then needs continued IV ampicillin for bacteremia as above) Monitor chest x-ray and oxygenation-repeat chest x-ray 06/20 similar to slightly improved aeration on the left Initially had NG tube for enteral feeds-discontinue this on 06/20 Speech therapy seen and cleared for minced and moist diet, thin liquids with no straws -Continue incentive spirometry and flutter valve as tolerated -Aspiration precautions (9) CRUZ (acute kidney injury): Plan: With creatinine elevated to 1.68 at peak and now improved to normal Likely secondary to ATN from hypotension and septic shock She is making urine, Cain catheter removed Follow BMP Renally dose medications (10) Fever: Plan: As above, now resolved (11) Hypercholesterolemia: Plan: Holding home krill oil (12) Hypertension: Plan: With hypotension as above now while in atrial fibrillation which is now resolved and is actually hypertensive now in a sinus rhythm Now on metoprolol for previous rapid atrial fibrillation Not on medications at home for this With persistently elevated blood pressures now now improving with increased dose of metoprolol -continue metoprolol 50 mg p.o. twice daily (13) Macrocytosis: Plan: B12 and folate normal No history of alcohol use Synthetic liver function seems normal Question if has early MDS? Follow as an outpatient (14) Septicemia: Plan: As above with positive blood cultures Plan to continue Unasyn for now for aspiration pneumonia, but then can convert to IV ampicillin alone for Enterococcus bacteremia through 07/03 -Will eventually need ultrasound-guided peripheral IV after repeat blood cultures negative x48 hours (15) Hypophosphatemia: Plan: Replace with IV potassium phosphorus Follow level in the morning (16) Edema: Plan: With anasarca all over which is improved today but is intravascularly volume depleted with hypernatremia Follow and avoid diuretics at this time -Improve nutrition and albumin Plan: DVT prophylaxis-now on therapeutic dose Lovenox for atrial fibrillation Disposition-continued stay in PCU Updated her [id number] (NICU nurse) at patient's request who will in turn update her Admission and Anticipated Discharge Date Admission Date: June 10, 2021 Results & Data Results & Data ([facility]) Vital Signs (Past 12 Hours) Vital Signs Temp Pulse Resp BP Pulse Ox 06/21/21 03:27 97.9 F 66 24 143/70 H 97 06/20/21 23:42 170/81 H 06/20/21 23:38 98.1 F 74 22 181/77 H 93 PG Care Time/CCT Total # of Minutes Spent Total Time Spent with Patient: Total time spent is greater than 50% in coordination of care (as documented) at patient's floor/unit and/or counseling patient: Coding Diagnoses Sepsis with acute respiratory failure and septic shock A41.9; R65.21; J96.00 Encephalopathy acute G93.40 Atrial fibrillation with RVR I48.91 Hypothyroid E03.9 Hypernatremia E87.0 Acute pancreatitis K85.90 Acute pancreatitis complication: unspecified Pancreatitis type: unspecified pancreatitis type Hiatal hernia K44.9 Aspiration pneumonia J69.0 CRUZ (acute kidney injury) N17.9 Fever R50.9 Hypercholesterolemia E78.00 Hypertension I10 Hypertension type: essential hypertension Macrocytosis D75.89 Septicemia A41.9 Hypophosphatemia E83.39 Edema R60.9 (1) Acute pancreatitis Acute pancreatitis complication: unspecified Pancreatitis type: unspecified pancreatitis type Qualified Code(s): K85.90 - Acute pancreatitis without necrosis or infection, unspecified (2) Hypertension Hypertension type: essential hypertension Qualified Code(s): I10 - Essential (primary) hypertension
[2021-06-21] MEDS: AMIODARONE 200 MG TAB PO SCH (09:02)
[2021-06-21] MEDS: THIAMINE HCL 100 MG TAB PO SCH (09:02)
[2021-06-21] MEDS: METOPROLOL TARTRATE 50 MG TAB PO SCH ×2 (09:02→20:21)
--- NOTE | 2021-06-21 09:02 | Hospitalist Progress Note ---
Date of Service June 21, 2021 Assessment & Plan Admission and Anticipated Discharge Date Admission Date: June 10, 2021 Review of Systems Review of Systems: All systems reviewed are negative, apart from the ones contained in the history. Physical Exam Physical Exam: The patient is awake, alert and oriented 3, well developed and well nourished, normocephalic and atraumatic, lying in bed and in no acute distress. HEENT--PERRL, EOMI, mucous membranes and oropharynx mildly dry Neck--supple. No JVD. No bruits. Thyroid normal, trachea midline, no adenopathy. Heart--normal S1 and S2. No murmurs, rubs or gallops. Lungs--clear bilaterally, no respiratory distress, no accessory muscle use. Abdomen--normal bowel sounds and soft. Mild epigastric and left sided abdominal pain Extremities--no cyanosis or clubbing. No edema. Dermatologic--normal skin turgor, normal color, no abnormal lymph nodes, no rash. Neurologic--cranial nerves II through XII grossly intact. Rheumatologic--normal range of motion. Psychiatric--normal affect. Results & Data Results & Data ([facility]) Vital Signs (Past 12 Hours) Vital Signs Temp Pulse Resp BP Pulse Ox 06/21/21 03:27 97.9 F 66 24 143/70 H 97 06/20/21 23:42 170/81 H 06/20/21 23:38 98.1 F 74 22 181/77 H 93 PG Care Time/CCT Total # of Minutes Spent Total Time Spent with Patient: Total time spent is greater than 50% in coordination of care (as documented) at patient's floor/unit and/or counseling patient: Coding
[2021-06-21] MEDS: ASCORBIC ACID 500 MG TAB PO SCH (09:03)
[2021-06-21] MEDS: ENOXAPARIN 80 MG/0.8 ML SYR SQ SCH ×2 (09:03→20:21)
[2021-06-21] MEDS: LANSOPRAZOLE 15 MG SOLTAB PO SCH (09:03)
[2021-06-21] MEDS: MULTI VIT W/MINERALS LIQUID 15 ML UDP PO SCH (09:04)
[2021-06-21] MEDS: POLYETHYLENE (MIRALAX) 17 GM PACK PO SCH (09:04)
[2021-06-21] MEDS: DOCUSATE SODIUM SYRUP 100 MG/10 ML UDC PO SCH ×2 (09:04→20:19)
--- NOTE | 2021-06-21 09:58 | History & Physical Report ---
Date of Service June 21, 2021 Assessment & Plan Admission and Anticipated Discharge Date Admission Date: June 10, 2021 History of Present Illness Primary Care Provider: Rob Mayers MD Allergies Allergy/AdvReac Type Severity Reaction Status Date / Time bee venom protein (honey bee) Allergy Severe HAS AN Verified 06/10/21 19:10 EPIPEN FOR REACTIONS latex Allergy Intermediate HIVES Verified 06/10/21 19:10 Iodinated Contrast Media Allergy Mild RASH Verified 06/10/21 19:10 Home Medications Medication Instructions Recorded Confirmed Type cyanocobalamin (vitamin B-12) 1,000 mcg PO QAM tab 02/27/19 06/10/21 History 1,000 mcg tablet,extended release cyclosporine 0.05 % eye drops in a 1 drp OPB Q12H 03/26/19 06/10/21 History dropperette (Restasis) epinephrine 0.3 mg/0.3 mL 0.3 mg IM DIRECTED PRN 03/26/19 06/10/21 History injection, auto-injector (EpiPen) multivitamin with minerals 1 tab PO QAM 03/26/19 06/10/21 History metronidazole 0.75 % topical cream 1 appln TOP DAILY PRN 12/19/19 06/10/21 History ascorbate calcium (vitamin C) 500 500 mg PO DAILY #30 tab 12/30/19 06/10/21 Rx mg tablet cholecalciferol (vitamin D3) 125 125 mcg PO DAILY #30 cap 12/30/19 06/10/21 Rx mcg (5,000 unit) capsule coenzyme Q10 200 mg capsule 200 mg PO DAILY #30 cap 12/30/19 06/10/21 Rx cranberry fruit concentrate 250 mg 250 mg PO DAILY #90 tab 12/30/19 06/10/21 Rx chewable tablet (Azo Cranberry) echinacea 400 mg capsule 400 mg PO DAILY #90 cap 12/30/19 06/10/21 Rx krill oil 500 mg capsule 500 mg PO DAILY #30 cap 12/30/19 06/10/21 Rx lutein 25 mg-zeaxanthin 5 mg 1 cap PO DAILY #30 cap 12/30/19 06/10/21 Rx capsule magnesium 250 mg tablet 325 mg PO DAILY tab 06/09/20 06/10/21 History levothyroxine 88 mcg tablet 88 mcg PO QAM #90 tab 09/01/20 06/10/21 Rx (Synthroid) melatonin 5 mg capsule 10 mg PO HS #30 cap 04/08/21 06/10/21 Rx Past Med/Surg History Medical History Acute pancreatitis ARDS (adult respiratory distress syndrome) Arthritis Hiatal hernia Hypertension Hypothyroid Hypothyroidism Lyme disease Macrocytosis Recurrent pancreatitis Surgical History H/O cataract extraction S/P bunionectomy right foot X 2 S/P tonsillectomy and adenoidectomy age 14 years Family History Mother Emphysema lung Father Myocardial infarction Hypertension Denies family history of Colon cancer Ovarian cancer Prostate cancer Autoimmune disease Pancreatitis Breast cancer Social History Smoking Status: Never smoker Second Hand Exposure: No; Hx Alcohol Use: No Hx Substance Use: No Preferred Language: Gabonese Communication Ability: Impaired Banquet Stewardess Required: No Beliefs That Will Affect Care: None marital status: Current Living Situation: Spouse Current Living Situation Comment: lives with in [place] 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 HEENT--PERRL, EOMI, mucous membranes and oropharynx mildly dry Neck--supple. No JVD. No bruits. Thyroid normal, trachea midline, no adenopathy. Heart--normal S1 and S2. No murmurs, rubs or gallops. Lungs--clear bilaterally, no respiratory distress, no accessory muscle use. Abdomen--normal bowel sounds and soft. Mild epigastric and left sided abdominal pain Extremities--no cyanosis or clubbing. No edema. Dermatologic--normal skin turgor, normal color, no abnormal lymph nodes, no rash. Neurologic--cranial nerves II through XII grossly intact. Rheumatologic--normal range of motion. Psychiatric--normal affect. Results & Data Results & Data ([facility]) Vital Signs (Past 12 Hours) Vital Signs Temp Pulse Resp BP Pulse Ox 06/21/21 03:27 97.9 F 66 24 143/70 H 97 06/20/21 23:42 170/81 H 06/20/21 23:38 98.1 F 74 22 181/77 H 93 Code Status & VTE Plan VTE Prophylaxis Plan VTE Prophylaxis will be ordered: Yes PG Care Time/CCT Total # of Minutes Spent Total Time Spent with Patient: Total time spent is greater than 50% in coordination of care (as documented) at patient's floor/unit and/or counseling patient: Coding
[2021-06-21] MEDS ORDERED: VANCOMYCIN CONSULT ACTIVE PRN (12:50)
[2021-06-21] MEDS ORDERED: VANCOMYCIN HCL 1,750 MG in SODIUM CHLORIDE 0.9% 500 ML IV STA (12:51)
--- NOTE | 2021-06-21 13:04 | Pharmacy Report ---
Pharmacy Vanc AUC Short Note - Date of Service June 21, 2021 - Assessment & Plan Assessment * 81 year old F receiving VANCOMYCIN for treatment of bacteremia (enterococcus faecalis, staph epi). * Pertinent microbiologic data includes: NEGATIVE MRSA Nasal Swab (on 06/12) 06/17 1 of 2 BLCXs growing both enterococcus faecalis and staph epi; 06/19 1 of 2 BLCXs growing staph sp (not staph aureus per PCR testing) * Pt has received 8 days of abx therapy thus far for aspiration pna (cefepime/flagyl 06/12-06/16, then Zosyn 06/16-06/19, then Unasyn 06/19-today) * Leukocytosis continues, but now afebrile and procal has trended favorably: 60-->40-->26-->2 Plan Vancomycin * AUC/SHAZIA is the preferred PK/PD target for vancomycin * AUC guided dosing is effective and associated with decreased risk of nephrotoxicity compared to traditional trough targets * Loading dose: 1750mg, followed by maint dose of 1250mg IV Q 12 hrs is predicted to achieve target AUC/SHAZIA of 400-600 mg/L.hr and may be associated with a 12 % risk of nephrotoxicity * Will check trough / random level in 1-2 days. Pharmacy will continue to follow and will adjust dose/frequency as necessary. Thank you.
--- NOTE | 2021-06-21 14:46 | Hospitalist Progress Note ---
Date of Service June 21, 2021 Assessment & Plan (1) Sepsis with acute respiratory failure and septic shock: Plan: This patient is an 81 y/o WF with a PMHx of Hypothyroidism and recurrent pancreatitis admitted 06/10 with acute pancreatitis (Lipase 7778)-- recurrent issues without obvious cause, suspected idiopathic pancreatitis versus autoimmune-daughter reports that this is patient's 12th episode of pancreatitis in her lifetime Treatment of pancreatitis as below - seen by GI early on in the course of admission and plan was for EUS as OP with Dr. Mclain - Patient did not tolerate clear liquids initially- had increased pain and nausea with multiple bouts of emesis which led to aspiration pneumonitis, hypoxia, as well as rapid atrial fibrillation and profound hypotension requiring emergent DC cardioversion, placement on vasopressors and IV amiodarone, and emergent intubation and was transferred to the ICU on the night of 06/11 -Chest x-ray consistent with aspiration pneumonia and she had bronchoscopy to clear out the lungs by pulmonology- Acute respiratory failure with hypoxia secondary to ARDS plus some volume overload -Was then weaned off all vasopressors and weaned off IV hydrocortisone - Blood cultures x2 positive.1x Enterococcus faecalis and 2x Staphylococcus species (most likely staphi epi) - Discussed w/ pharmacy. Given 2xs culture + and uptrending WBC will tx staph epi with vancomycin - Procalcitonin peaked at 60 downtrended - Leukocytosis persists likely due to combination of severe constipation, atelectasis and pneumonia, and some from previous stress dose steroids. - Repeat UA on 06/20 - for infection, and repeat chest x-ray 06/20 shows persistent pneumonia and atelectasis. KUB shows moderate to severe amount of stool burden but no obstruction. remains afebrile. - Abx Course: Cefepime/Flagyl x5 dayss --> Zosyn x3 days with improvement --> Unasyn. Uptrending wbc and 2x + BC as above, vanco started 06/21 - Surveillance cultures drawn. Pt will need abx 14 days from last positive BC -Echocardiogram performed earlier this admission without evidence of vegetation on the valves -Follow CBC, CMP -Asked nurse to continue to mobilize patient out of bed to chair, encourage use of incentive spirometer -Continue to work on bowel regimen for severe constipation (2) Encephalopathy acute: Plan: Improving, near baseline Patient with anxiety/agitation and self extubated while in ICU Initially on Precedex drip, was minimally interactive and improved 06/16 and 06/17 with Narcan. 06/18 did well, 06/19 required IV Haldol due to early morning babysitter attempts to get out of bed repeatedly with difficult redirecting which improved during daytime, and 11 did well through the night with an evening dose of Zyprexa. Suspect acute encephalopathy due to aspiration pneumonia with additional hospital delirium 06/17 CTH: No acute findings EEG without epileptiform activity, mild encephalopathy during admission Continue pneumonia/sepsis and constipation treatment as otherwise noted Passed speech evaluation for minced and moist Tolerating p.o. well 06/21 Continue at bedtime Zyprexa (3) Atrial fibrillation with RVR: Plan: - Likely sepsis-driven due to catecholamine release -TTE: Hyperdynamic LV, severe LVH, elevated RVSP at 50-60 mmHg -With profound hypotension as above associated with rapid atrial fibrillation requiring urgent DC cardioversion earlier in her hospital stay and then again requiring phenylephrine -Amiodarone drip converted to p.o. amiodarone 200 mg once daily -Continue therapeutic Lovenox Anticipate conversion to Eliquis tomorrow if continuing to take p.o. well Remains in sinus rhythm, although with frequent ectopy Toprol increased to 75 mg twice daily, adequate rate with mild hypertension 06/21 Optimize potassium, magnesium (4) Hypothyroid: Plan: TSH here normal at 1.9 Continue levothyroxine (5) Hypernatremia: Plan: -Proved following D5W infusion and encouragement of free water Normalized, 144 on 06/21 -Encourage p.o. intake of free water - Follow BMP (6) Acute pancreatitis: Plan: With a history of recurrent pancreatitis x12. Has not had an episode in about 2 years Previously had gallbladder sludge but patient had declined to have cholecystectomy several years ago -Gallbladder ultrasound here again with gallbladder sludge - She had EUS which showed pancreatic head cyst in 2018 but then did not return for follow-up EUS at [place] as planned 1 year later. -CT of A/P: pancreatitis without cyst/pseudocyst and ductal dilation - LFT's initially WNL and then only mild elevation in AST after that, total bilirubin normal - MRCP: pancreatitis without cyst/pseudocyst/abscess or ductal dilation - Triglyceride level WNL: 28 -No evidence of hypercalcemia - Patient does not drink ETOH-confirmed with family - Gi: idiopathic versus autoimmune vs related to cyst? Possibly secondary to gallbladder sludge - Also had pancreatic cyst seen on EUS in 2018-this needs repeat EUS for follow- up in 4 weeks after discharge Patient without abdominal pain, tenderness 06/20 and 06/21 - GI saw patient here and plans for outpatient EUS 1 month after discharge (7) Hiatal hernia: Plan: Large hiatal hernia with approximately half the stomach located in the thoracic cavity noted on CT abdomen/pelvis-this puts her at increased risk for aspiration Initially on IV Protonix Continue oral lansoprazole 15 mg daily (8) Aspiration pneumonia: Plan: -As above, continues with now grossly productive cough, remains hypoxic requiring 4 L nasal cannula, and mentation is improving -Chest x-ray with left lower lobe collapse and pleural effusion but slightly improved from previous -Pro-Sanjay initially elevated, down trended -Leukocytosis as noted above -With positive blood cultures as above -Initially on cefepime and metronidazole x5 days, then improved more after starting IV Zosyn x3 days, now narrowed down to Unasyn on 06/19-last day of treatment for pneumonia will be 06/23. Patient completed 8 days of anaerobe coverage respiration pneumonia, but requires ongoing treatment for bacteremia above. Blood cultures positive in multiple sets for staph epidermidis, continue Vanco as noted above -Monitor chest x-ray and oxygenation-repeat chest x-ray 06/20 similar to slightly improved aeration on the left -Initially had NG tube for enteral feeds-discontinue this on 06/20 -Speech therapy seen and cleared for minced and moist diet, thin liquids with no straws -Continue incentive spirometry and flutter valve as tolerated -Aspiration precautions (9) CRUZ (acute kidney injury): Plan: With creatinine elevated to 1.68 at peak and normalized Likely secondary to ATN from hypotension and septic shock BMP daily, continue to follow (10) Fever: Plan: As above, now resolved (11) Hypercholesterolemia: Plan: Holding home krill oil (12) Hypertension: Plan: With hypotension as above now while in atrial fibrillation which is now resolved and is actually hypertensive now in a sinus rhythm Now on metoprolol for previous rapid atrial fibrillation Not on medications at home for this With persistently elevated blood pressures now now improving with increased dose of metoprolol -continue metoprolol as otherwise noted (13) Macrocytosis: Plan: B12 and folate normal No history of alcohol use Synthetic liver function seems normal Question if has early MDS? Follow as an outpatient (14) Septicemia: Plan: As above with positive blood cultures -Will eventually need ultrasound-guided peripheral IV after repeat blood cultures negative x48 hours (15) Hypophosphatemia: Plan: Replace with IV potassium phosphorus Follow level in the morning (16) Edema: Plan: - Previously with anasarca but intravascularly volume depleted with hypernatremia. IMproving. - Follow and avoid diuretics at this time -Improve nutrition and albumin Plan: DVT prophylaxis-now on therapeutic dose Lovenox for atrial fibrillation Disposition-continued stay in PCU Admission and Anticipated Discharge Date Admission Date: June 10, 2021 Subjective Yesy is seen at the bedside this morning. She is alert and oriented x3, no acute distress. Reports she feels improved, but is still short of breath without using her oxygen. Denies fever/chills/sweats overnight. Discussed her case with pharmacy, patient with blood cultures showing both Enterococcus and staph epi, given that she is at 2 separate cultures both growing staph epi with uptrending leukocytosis will convert and cover with vancomycin at this time, discussed with patient. Patient reports overall she is eager to get in the hospital, but understands that she is not completely well at this time and has further progress to go home. No additional questions at time of bedside assessment. Review of Systems Review of Systems: All systems reviewed & are unremarkable except as noted in Subjective Physical Exam Physical Exam: General: A&Ox3. NAD. Cooperative. HEENT: Atraumatic, normocephalic. Visual acuity and hearing grossly intact Pulm: Moderate air movement, bibasilar crackles without overt -wheezes, -rales, -rhonchi. Symmetrical chest rise. No increase work of breathing. No respiratory distress. Cardiac: RRR, -mrg. Radial pulses intact and symmetrical. Abdominal: Nontender, nondistended, soft. BS present. Extremities: Right arm with lateral posterior forearm ecchymoses, otherwise atraumatic. Radial pulse and PT pulses intact and symmetrical. Moves all extremities equally. Results & Data Results & Data ([facility]) Vital Signs (Past 12 Hours) Vital Signs Temp Pulse Pulse Resp BP Pulse Ox 06/21/21 08:00 76 06/21/21 03:27 36.6 C 66 24 143/70 H 97 PG Care Time/CCT Total # of Minutes Spent Total Time Spent with Patient: Total time spent is greater than 50% in coordination of care (as documented) at patient's floor/unit and/or counseling patient: Coding Level of Care Code 32937 Subseq Hosp Care Lvl 3 Diagnoses Sepsis with acute respiratory failure and septic shock A41.9; R65.21; J96.00 Encephalopathy acute G93.40 Atrial fibrillation with RVR I48.91 Hypothyroid E03.9 Hypernatremia E87.0 Acute pancreatitis K85.90 Acute pancreatitis complication: unspecified Pancreatitis type: unspecified pancreatitis type Hiatal hernia K44.9 Aspiration pneumonia J69.0 CRUZ (acute kidney injury) N17.9 Fever R50.9 Hypercholesterolemia E78.00 Hypertension I10 Hypertension type: essential hypertension Macrocytosis D75.89 Septicemia A41.9 Hypophosphatemia E83.39 Edema R60.9 (1) Hypertension Hypertension type: essential hypertension Qualified Code(s): I10 - Essential (primary) hypertension (2) Acute pancreatitis Acute pancreatitis complication: unspecified Pancreatitis type: unspecified pancreatitis type Qualified Code(s): K85.90 - Acute pancreatitis without necrosis or infection, unspecified
[2021-06-21] MEDS: OLANZapine ZYDIS 5 MG ORALLY DIS. TAB PO SCH (20:22)
[2021-06-22] MEDS: VANCOMYCIN HCL 1,250 MG in SODIUM CHLORIDE 0.9% 250 ML IV SCH ×2 (00:59→12:35)
[2021-06-22] MEDS: LEVOTHYROXINE SODIUM 88 MCG TABLET PO SCH (05:19)
[2021-06-22 05:23] LABS: Hematocrit (blood only) 36.1 % (37-47); Hemoglobin 11.9 g/dL (12.0-16.0); Mean Corpuscular Hemoglobin 32.1 pg (25-34); Mean Corpuscular Volume 97.3 fL (80-100); Platelet Count 437 K/uL (130-400); RDW Coefficient of Variation 14.1 % (11.5-14.5); RDW Standard Deviation 50.4 fL (36.4-46.3); Red Blood Count 3.71 M/uL (4.2-5.4); White Blood Count 23.55 K/uL (4.8-10.8)
[2021-06-22 05:44] LABS: Basophils # (auto) 0.02 K/uL (0-0.2); Basophils % (auto) 0.1 %; Eosinophils # (auto) 0.19 K/uL (0-0.5); Eosinophils % (auto) 0.8 %; Immature Granulocytes # (auto) 0.17 K/uL (0.00-0.02); Immature Granulocytes % (auto) 0.7 %; Lymphocytes # (auto) 1.16 K/uL (1.2-3.4); Lymphocytes % (auto) 4.9 %; Monocytes # (auto) 1.55 K/uL (0.11-0.59); Monocytes % (auto) 6.6 %; Neutrophils # (auto) 20.46 K/uL (1.4-6.5); Neutrophils % (auto) 86.9 %
[2021-06-22 05:57] LABS: BUN Creatinine Ratio 35.4 (10-20); Calcium 8.5 mg/dl (8.5-10.1); Creatinine Clr Calc Pharmacy 82.1 ml/min; Est GFR (African American) 103.1 ml/min; Potassium 4.3 mmol/L (3.5-5.1)
--- NOTE | 2021-06-22 07:26 | Hospitalist Progress Note ---
Date of Service June 22, 2021 Assessment & Plan (1) Sepsis with acute respiratory failure and septic shock: Plan: This patient is an 81 y/o WF with a PMHx of Hypothyroidism and recurrent pancreatitis admitted 06/10 with acute pancreatitis (Lipase 7778)-- recurrent issues without obvious cause, suspected idiopathic pancreatitis versus autoimmune-daughter reports that this is patient's 12th episode of pancreatitis in her lifetime Treatment of pancreatitis as below - seen by GI early on in the course of admission and plan was for EUS as OP with Dr. Mclain - Patient did not tolerate clear liquids initially- had increased pain and nausea with multiple bouts of emesis which led to aspiration pneumonitis, hypoxia, as well as rapid atrial fibrillation and profound hypotension requiring emergent DC cardioversion, placement on vasopressors and IV amiodarone, and emergent intubation and was transferred to the ICU on the night of 06/11 -Chest x-ray consistent with aspiration pneumonia and she had bronchoscopy to clear out the lungs by pulmonology- Acute respiratory failure with hypoxia secondary to ARDS plus some volume overload -Was then weaned off all vasopressors and weaned off IV hydrocortisone - Blood cultures x2 positive.1x Enterococcus faecalis and 2x coag negative staph - Discussed w/ pharmacy. Given 2x pos culture + and uptrending WBC will tx staph epi with vancomycin - Procalcitonin peaked at 60 downtrended. Repeat pending. - Leukocytosis persists likely due to combination of severe constipation, atelectasis and pneumonia, and some from previous stress dose steroids. Pul monary toilet, bowel regimen, continue to follow and antibiotics as otherwise noted - Repeat UA on 06/20 - for infection, and repeat chest x-ray 06/20 shows persistent pneumonia and atelectasis. KUB shows moderate to severe amount of stool burden but no obstruction. remains afebrile. - Abx Course: Cefepime/Flagyl x5 dayss --> Zosyn x3 days with improvement --> Unasyn. Uptrending wbc and 2x + BC as above, vanco started 06/21 - Surveillance cultures drawn. Pt will need abx 14 days from last positive BC. Repeat cultures drawn 06/21, PICC placement anticipated at 48-72hr negative -Echocardiogram performed earlier this admission without evidence of vegetation on the valves -Follow CBC, CMP -Asked nurse to continue to mobilize patient out of bed to chair, encourage use of incentive spirometer -Continue to work on bowel regimen for severe constipation (2) Encephalopathy acute: Plan: Improved, at/near baseline Patient with anxiety/agitation and self extubated while in ICU Initially on Precedex drip, was minimally interactive and improved 06/16 and 06/17 with Narcan. 06/18 did well, 06/19 required IV Haldol due to loan officer assistant attempts to get out of bed repeatedly with difficult redirecting which improved during daytime, and 06 20 did well through the night with an evening dose of Zyprexa. Suspect acute encephalopathy due to aspiration pneumonia with additional hospital delirium 06/17 CTH: No acute findings EEG without epileptiform activity, mild encephalopathy during admission Continue pneumonia/sepsis and constipation treatment as otherwise noted Passed speech evaluation for minced and moist Tolerating p.o. well 06/21, 06/22 Continue at bedtime Zyprexa (3) Atrial fibrillation with RVR: Plan: - Likely sepsis-driven due to catecholamine release -TTE: Hyperdynamic LV, severe LVH, elevated RVSP at 50-60 mmHg -With profound hypotension as above associated with rapid atrial fibrillation requiring urgent DC cardioversion earlier in her hospital stay and then again requiring phenylephrine -Amiodarone drip converted to p.o. amiodarone 200 mg once daily -Continue therapeutic Lovenox Converted to Eliquis Remains in sinus rhythm, although with frequent ectopy Toprol increased to 75 mg twice daily, adequate rate with mild hypertension 06/21 Optimize potassium, magnesium (4) Hypothyroid: Plan: TSH here normal at 1.9 Continue levothyroxine (5) Hypernatremia: Plan: -Proved following D5W infusion and encouragement of free water Normalized, 144 on 06/21 -Encourage p.o. intake of free water - Follow BMP (6) Acute pancreatitis: Plan: With a history of recurrent pancreatitis x12. Has not had an episode in about 2 years Previously had gallbladder sludge but patient had declined to have cholecystectomy several years ago -Gallbladder ultrasound here again with gallbladder sludge - She had EUS which showed pancreatic head cyst in 2018 but then did not return for follow-up EUS at [place] as planned 1 year later. -CT of A/P: pancreatitis without cyst/pseudocyst and ductal dilation - LFT's initially WNL and then only mild elevation in AST after that, total bilirubin normal - MRCP: pancreatitis without cyst/pseudocyst/abscess or ductal dilation - Triglyceride level WNL: 28 -No evidence of hypercalcemia - Patient does not drink ETOH-confirmed with family - Gi: idiopathic versus autoimmune vs related to cyst? Possibly secondary to g allbladder sludge - Also had pancreatic cyst seen on EUS in 2018-this needs repeat EUS for follow- up in 4 weeks after discharge Patient without abdominal pain, tenderness 06/20 and 06/21 - GI saw patient here and plans for outpatient EUS 1 month after discharge (7) Hiatal hernia: Plan: Large hiatal hernia with approximately half the stomach located in the thoracic cavity noted on CT abdomen/pelvis-this puts her at increased risk for aspiration Initially on IV Protonix Continue oral lansoprazole 15 mg daily (8) Aspiration pneumonia: Plan: -As above, continues with now grossly productive cough, remains hypoxic with do wntrending oxygen requirement, and mentation is improving -Chest x-ray with left lower lobe collapse and pleural effusion but slightly improved from previous -Pro-Sanjay initially elevated, down trended, repeat pending -Leukocytosis as noted above -With positive blood cultures as above -Initially on cefepime and metronidazole x5 days, then improved more after starting IV Zosyn x3 days, now narrowed down to Unasyn on 06/19-last day of treatment for pneumonia will be 06/23. Patient completed 8 days of anaerobe coverage respiration pneumonia, but requires ongoing treatment for bacteremia above. Blood cultures positive in multiple sets for staph epidermidis, continue Vanco as noted above -Monitor chest x-ray and oxygenation-repeat chest x-ray 06/20 similar to slightly improved aeration on the left -Initially had NG tube for enteral feeds-discontinue this on 06/20 -Speech therapy seen and cleared for minced and moist diet, thin liquids with no straws -Continue incentive spirometry and flutter valve as tolerated -Aspiration precautions (9) CRUZ (acute kidney injury): Plan: With creatinine elevated to 1.68 at peak and normalized Likely secondary to ATN from hypotension and septic shock BMP daily, continue to follow (10) Fever: Plan: As above, now resolved (11) Hypercholesterolemia: Plan: Holding home krill oil (12) Hypertension: Plan: With hypotension as above now while in atrial fibrillation which is now resolved and is actually hypertensive now in a sinus rhythm Now on metoprolol for previous rapid atrial fibrillation. Metoprolol increased as above. Not on medications at home for this (13) Macrocytosis: Plan: B12 and folate normal No history of alcohol use Synthetic liver function seems normal Question if has early MDS? Follow as an outpatient (14) Septicemia: Plan: As above with positive blood cultures Anticipate IV antibiotics at discharge likely requiring PICC as noted (15) Hypophosphatemia: Plan: -Repeat pending (16) Edema: Plan: - Previously with anasarca but intravascularly volume depleted with hypernatremia. IMproving. -Resume diuretics as tolerated by blood pressure -Improve nutrition and albumin Plan: DVT prophylaxis Eliquis as noted Disposition-PCU. Clinically improving and progressing towards discharge, white count multifactorial and uptrending but overall clinical improvement, continue to follow and anticipate placement with 14-day course of antibiotics at discharge. Admission and Anticipated Discharge Date Admission Date: June 10, 2021 Subjective Yesy seen at the bedside this morning. She reports she feels better, but very weak. She is worried about how weak she feels, and reports she is eager to get out of the hospital and to start work on getting stronger. She denies fever, chills, sweats, chest pain, shortness of breath, difficulty breathing, nausea, vomiting, diarrhea today. +constipation She remains on 2 L of oxygen, reports she feels comfortable on this and this has been decreased from yesterday. She is not had any night sweats. Discussed that given her coag negative staph and Enterococcus bacteremia, she will require 14 days of antibiotic treatment from her negative set of blood cultures. Reasonable to cover both with vancomycin, this will require PICC placement prior to discharge. She is clinically improving, although white count up trended today she remains afebrile Continue to follow, if clinical worsening or continued uptrend may need to reassess adjunct antibiotics. Review of Systems Review of Systems: Negative except as noted in HPI Physical Exam Physical Exam: General: A&Ox3. NAD. Cooperative. Sitting up at bedside at time of exam. Follows 1 and two-step commands. HEENT: Atraumatic, normocephalic. Visual acuity and hearing grossly intact Pulm: Moderate air movement, bibasilar crackles without overt -wheezes, -rales, -rhonchi. Symmetrical chest rise. No increase work of breathing. No respiratory distress. Cardiac: RRR, -mrg. Radial pulses intact and symmetrical. Abdominal: Nontender, nondistended, soft. BS present. Extremities: Right arm with lateral posterior forearm ecchymoses, otherwise atraumatic. Radial pulse and PT pulses intact and symmetrical. Moves all extremities equally. Results & Data Results & Data ([facility]) Vital Signs (Past 12 Hours) Vital Signs Temp Pulse Pulse Resp BP Pulse Ox 06/22/21 00:45 36.8 C 73 71 22 133/75 94 06/21/21 20:00 36.8 C 72 22 162/76 H 92 PG Care Time/CCT Total # of Minutes Spent Total Time Spent with Patient: Total time spent is greater than 50% in coordination of care (as documented) at patient's floor/unit and/or counseling patient: Coding Level of Care Code 19611 Subseq Hosp Care Lvl 3 Diagnoses Sepsis with acute respiratory failure and septic shock A41.9; R65.21; J96.00 Encephalopathy acute G93.40 Atrial fibrillation with RVR I48.91 Hypothyroid E03.9 Hypernatremia E87.0 Acute pancreatitis K85.90 Acute pancreatitis complication: unspecified Pancreatitis type: unspecified pancreatitis type Hiatal hernia K44.9 Aspiration pneumonia J69.0 CRUZ (acute kidney injury) N17.9 Fever R50.9 Hypercholesterolemia E78.00 Hypertension I10 Hypertension type: essential hypertension Macrocytosis D75.89 Septicemia A41.9 Hypophosphatemia E83.39 Edema R60.9 (1) Hypertension Hypertension type: essential hypertension Qualified Code(s): I10 - Essential (primary) hypertension (2) Acute pancreatitis Acute pancreatitis complication: unspecified Pancreatitis type: unspecified pancreatitis type Qualified Code(s): K85.90 - Acute pancreatitis without necrosis or infection, unspecified
[2021-06-22] MEDS: INSULIN ASPART 100 UNITS/ML 3 ML PEN SC SCH ×4 (07:58→21:17)
[2021-06-22] MEDS: DOCUSATE SODIUM SYRUP 100 MG/10 ML UDC PO SCH ×2 (08:33→21:17)
[2021-06-22] MEDS: MULTI VIT W/MINERALS LIQUID 15 ML UDP PO SCH (08:33)
[2021-06-22] MEDS: ENOXAPARIN 80 MG/0.8 ML SYR SQ SCH (08:33)
[2021-06-22] MEDS: AMIODARONE 200 MG TAB PO SCH (08:34)
[2021-06-22] MEDS: ASCORBIC ACID 500 MG TAB PO SCH (08:34)
[2021-06-22] MEDS: POLYETHYLENE (MIRALAX) 17 GM PACK PO SCH (08:34)
[2021-06-22] MEDS: LANSOPRAZOLE 15 MG SOLTAB PO SCH (08:34)
[2021-06-22] MEDS: THIAMINE HCL 100 MG TAB PO SCH (08:34)
[2021-06-22] MEDS: METOPROLOL TARTRATE 25 MG TAB PO SCH ×2 (08:37→21:18)
[2021-06-22] MEDS ORDERED: MAGNESIUM CITRATE 296 ML/BTL PO PRN (11:56)
--- NOTE | 2021-06-22 20:30 | XRay Report ---
KUB CLINICAL HISTORY: Constipation. FINDINGS: An AP, portable, supine abdominal radiograph is compared to study dated 06/20/2021. An enter ic tube has been removed. There is no bowel obstruction. Moderate fecal retention is seen throughout the colon. No evidence of intraperitoneal free air is seen on this supine image. There are no abnorma l abdominal calcifications. Calcified fibroids are noted in the pelvis. The skeletal structures are o steopenic and appear intact. There is moderate lumbosacral spondylosis. Bilateral pleural effusions a re suspected. IMPRESSION: Nonobstructed abdominal bowel gas pattern noting moderate colonic fecal retention. Electronically signed by: Moses Garsia M.D. 06/22/2021 8:28 PM
[2021-06-22] MEDS: APIXABAN 5 MG TABLET PO SCH (21:16)
[2021-06-22] MEDS: OLANZapine ZYDIS 5 MG ORALLY DIS. TAB PO SCH (21:18)
[2021-06-23] MEDS: VANCOMYCIN HCL 1,250 MG in SODIUM CHLORIDE 0.9% 250 ML IV SCH ×2 (02:08→13:26)
[2021-06-23 05:30] LABS: Basophils # (auto) 0.03 K/uL (0-0.2); Basophils % (auto) 0.1 %; Hematocrit (blood only) 37.2 % (37-47); Hemoglobin 11.9 g/dL (12.0-16.0); Immature Granulocytes # (auto) 0.16 K/uL (0.00-0.02); Immature Granulocytes % (auto) 0.8 %; Lymphocytes # (auto) 0.99 K/uL (1.2-3.4); Lymphocytes % (auto) 4.8 %; Mean Corpuscular Hemoglobin 31.8 pg (25-34); Mean Corpuscular Volume 99.5 fL (80-100); Mean Platelet Volume 9.3 fL (7.4-10.4); Monocytes # (auto) 1.65 K/uL (0.11-0.59); Monocytes % (auto) 7.9 %; Neutrophils # (auto) 17.74 K/uL (1.4-6.5); Neutrophils % (auto) 85.4 %; Platelet Count 462 K/uL (130-400); RDW Standard Deviation 50.2 fL (36.4-46.3); Red Blood Count 3.74 M/uL (4.2-5.4); White Blood Count 20.77 K/uL (4.8-10.8)
[2021-06-23 05:47] LABS: BUN Creatinine Ratio 33.1 (10-20); Calcium 8.5 mg/dl (8.5-10.1); Creatinine Clr Calc Pharmacy 91.7 ml/min; Est GFR (African American) 106.6 ml/min; Potassium 3.7 mmol/L (3.5-5.1)
[2021-06-23] MEDS: LEVOTHYROXINE SODIUM 88 MCG TABLET PO SCH (06:45)
--- NOTE | 2021-06-23 07:27 | Hospitalist Progress Note ---
Date of Service June 23, 2021 Assessment & Plan (1) Sepsis with acute respiratory failure and septic shock: Plan: This patient is an 81 y/o WF with a PMHx of Hypothyroidism and recurrent pancreatitis admitted 06/10 with acute pancreatitis (Lipase [id number])-- recurrent issues without obvious cause, suspected idiopathic pancreatitis versus autoimmune-daughter reports that this is patient's 12th episode of pancreatitis in her lifetime Treatment of pancreatitis as below - seen by GI early on in the course of admission and plan was for EUS as OP with Dr. Mclain - Patient did not tolerate clear liquids initially- had increased pain and nausea with multiple bouts of emesis which led to aspiration pneumonitis, hypoxia, as well as rapid atrial fibrillation and profound hypotension requiring emergent DC cardioversion, placement on vasopressors and IV amiodarone, and emergent intubation and was transferred to the ICU on the night of 06/11 -Chest x-ray consistent with aspiration pneumonia and she had bronchoscopy to clear out the lungs by pulmonology- Acute respiratory failure with hypoxia secondary to ARDS plus some volume overload -Was then weaned off all vasopressors and weaned off IV hydrocortisone - Blood cultures x2 positive.1x Enterococcus faecalis and 2x coag negative staph. Sensitivities different between SHANK STITCHER/S epi. ID consulted. - Discussed w/ pharmacy. Given 2x pos culture + and uptrending WBC will tx staph epi with vancomycin, ID consulted as noted - Procalcitonin peaked at 60 downtrended. Repeat pending. - Leukocytosis persists, slightly downtrending today. severe constipation, atelectasis and pneumonia. Sacral ulcer present on exam, - Pulmonary toilet, bowel regimen, continue to follow and antibiotics as otherwise noted - Repeat UA on 06/20 - for infection, and repeat chest x-ray 06/20 shows persistent pneumonia and atelectasis. KUB shows moderate to severe amount of stool burden but no obstruction. remains afebrile. - Abx Course: Cefepime/Flagyl x5 dayss --> Zosyn x3 days with improvement --> Unasyn. Uptrending wbc and 2x + BC as above, vanco started 06/21 - Surveillance cultures drawn. Anticipate pt will need abx 14 days from last positive BC. Repeat cultures drawn 06/21, PICC placement anticipated at 48-72hr negative and pending infectious disease recs. -Echocardiogram performed earlier this admission without evidence of vegetation on the valves -Follow CBC, CMP -Asked nurse to continue to mobilize patient out of bed to chair, encourage use of incentive spirometer -Continue to work on bowel regimen for severe constipation (2) Encephalopathy acute: Plan: Improved, at/near baseline Patient with anxiety/agitation and self extubated while in ICU Initially on Precedex drip, was minimally interactive and improved 06/16 and 06/17 with Narcan. 06/18 did well, 06/19 required IV Haldol due to food and beverage manager attempts to get out of bed repeatedly with difficult redirecting which improved during daytime, and 06 20 did well through the night with an evening dose of Zyprexa. Suspect acute encephalopathy due to aspiration pneumonia with additional hospital delirium 06/17 CTH: No acute findings EEG without epileptiform activity, mild encephalopathy during admission Continue pneumonia/sepsis and constipation treatment as otherwise noted Passed speech evaluation for minced and moist Tolerating p.o. well Continue at bedtime Zyprexa (3) Atrial fibrillation with RVR: Plan: - Likely sepsis-driven due to catecholamine release -TTE: Hyperdynamic LV, severe LVH, elevated RVSP at 50-60 mmHg -With profound hypotension as above associated with rapid atrial fibrillation requiring urgent DC cardioversion earlier in her hospital stay and then again requiring phenylephrine -Amiodarone drip converted to p.o. amiodarone 200 mg once daily -Continue therapeutic Lovenox Converted to Eliquis Remains in sinus rhythm, although with frequent ectopy Continue Toprol 75 mg twice daily. Adequate rate with mild hypertension 06/21 Optimize potassium, magnesium (4) Hypothyroid: Plan: TSH here normal at 1.9 Continue levothyroxine (5) Hypernatremia: Plan: -Proved following D5W infusion and encouragement of free water Normalized, 144 on 06/21 -Encourage p.o. intake of free water - Follow BMP (6) Acute pancreatitis: Plan: With a history of recurrent pancreatitis x12. Has not had an episode in about 2 years Previously had gallbladder sludge but patient had declined to have cholecystectomy several years ago -Gallbladder ultrasound here again with gallbladder sludge - She had EUS which showed pancreatic head cyst in 2018 but then did not return for follow-up EUS at [facility] as planned 1 year later. -CT of A/P: pancreatitis without cyst/pseudocyst and ductal dilation - LFT's initially WNL and then only mild elevation in AST after that, total bilirubin normal - MRCP: pancreatitis without cyst/pseudocyst/abscess or ductal dilation - Triglyceride level WNL: 28 -No evidence of hypercalcemia - Patient does not drink ETOH-confirmed with family - Gi: idiopathic versus autoimmune vs related to cyst? Possibly secondary to gallbladder sludge - Also had pancreatic cyst seen on EUS in 2018-this needs repeat EUS for follow- up in 4 weeks after discharge Patient without abdominal pain, tenderness 06/20 and 06/21 - GI saw patient here and plans for outpatient EUS 1 month after discharge (7) Hiatal hernia: Plan: Large hiatal hernia with approximately half the stomach located in the thoracic cavity noted on CT abdomen/pelvis-this puts her at increased risk for aspiration Initially on IV Protonix Continue oral lansoprazole 15 mg daily (8) Aspiration pneumonia: Plan: -As above, continues with now grossly productive cough, remains hypoxic with downtrending oxygen requirement, and mentation is improving -Chest x-ray with left lower lobe collapse and pleural effusion but slightly improved from previous -Pro-Sanjay initially elevated, down trended, repeat pending -Leukocytosis as noted above -With positive blood cultures as above -Initially on cefepime and metronidazole x5 days, then improved more after starting IV Zosyn x3 days, now narrowed down to Unasyn on 06/19-last day of treatment for pneumonia will be 06/23. Patient completed 8 days of anaerobe coverage respiration pneumonia, but requires ongoing treatment for bacteremia above. Blood cultures positive in multiple sets for staph epidermidis, continue Vanco as noted above -Monitor chest x-ray and oxygenation-repeat chest x-ray 06/20 similar to slightly improved aeration on the left -Initially had NG tube for enteral feeds-discontinued this on 06/20 -Speech therapy seen and cleared for minced and moist diet, thin liquids with no straws -Continue incentive spirometry and flutter valve as tolerated -Aspiration precautions (9) CRUZ (acute kidney injury): Plan: With creatinine elevated to 1.68 at peak and normalized Likely secondary to ATN from hypotension and septic shock BMP daily, continue to follow (10) Fever: Plan: As above, now resolved (11) Hypercholesterolemia: Plan: Holding home krill oil (12) Hypertension: Plan: With hypotension as above now while in atrial fibrillation which is now resolved and is actually hypertensive now in a sinus rhythm Now on metoprolol for previous rapid atrial fibrillation. Metoprolol increased as above. Not on medications at home for this (13) Macrocytosis: Plan: B12 and folate normal No history of alcohol use Synthetic liver function seems normal Question if has early MDS? Follow as an outpatient (14) Septicemia: Plan: As above with positive blood cultures Anticipate IV antibiotics at discharge likely requiring PICC as noted (15) Hypophosphatemia: Plan: -Repeat pending (16) Edema: Plan: - Previously with anasarca but intravascularly volume depleted with hypernatremia. IMproving. -Resume diuretics as tolerated by blood pressure -Improve nutrition and albumin (17) Sacral ulcer: Plan: DVT prophylaxis Eliquis as noted Disposition-PCU. Clinically improving and progressing towards discharge, white count multifactorial and uptrending but overall clinical improvement, continue to follow and anticipate placement with 14-day course of antibiotics at discharge. Admission and Anticipated Discharge Date Admission Date: June 10, 2021 Subjective Yesy is seen at the bedside this morning. She reports she feels similar to yesterday, continues to have improved energy and overall feeling better. She reports she was able to get a sponge bath today and feels "much better ". Is eager to start rehab, and notes that she was able to work twice with physical therapy today which she was happy for. Denies fever, chills, sweats, difficulty breathing, shortness of breath, chest pain, chest pressure. At this time discussed that we are waiting for infectious disease consultation given the different speciation from her blood cultures, and advice regarding what outpati ent antibiotic regimen is recommended, and whether treatment for the staph epidermidis/coag negative staph is required. Review of Systems Review of Systems: All systems reviewed & are unremarkable except as noted in Subjective Physical Exam Physical Exam: General: A&Ox3. NAD. Cooperative. Sitting up at bedside at time of exam. Follows 1 and two-step commands. HEENT: Atraumatic, normocephalic. Visual acuity and hearing grossly intact. Pupils equal and reactive to light. Pulm: Moderate air movement, -wheezes, -rales, -rhonchi. Symmetrical chest rise. No increase work of breathing. No respiratory distress. On 2 L nasal cannula. Cardiac: RRR, -mrg. Radial pulses intact and symmetrical. Abdominal: Nontender, nondistended, soft. BS present. Extremities: Right arm with lateral posterior forearm ecchymoses, otherwise atraumatic. Radial pulse and PT pulses intact and symmetrical. Moves all extremities equally. Results & Data Results & Data ([facility]) Vital Signs (Past 12 Hours) Vital Signs Temp Pulse Pulse Resp BP Pulse Ox 06/23/21 04:07 36.5 C 77 23 143/51 H 94 06/23/21 00:08 37.3 C 75 18 123/45 L 95 06/23/21 00:00 76 06/22/21 20:59 36.6 C 68 21 134/66 97 PG Care Time/CCT Total # of Minutes Spent Total Time Spent with Patient: Total time spent is greater than 50% in coordination of care (as documented) at patient's floor/unit and/or counseling patient: Coding Level of Care Code 26497 Subseq Hosp Care Lvl 2 Diagnoses Sepsis with acute respiratory failure and septic shock A41.9; R65.21; J96.00 Encephalopathy acute G93.40 Atrial fibrillation with RVR I48.91 Hypothyroid E03.9 Hypernatremia E87.0 Acute pancreatitis K85.90 Acute pancreatitis complication: unspecified Pancreatitis type: unspecified pancreatitis type Hiatal hernia K44.9 Aspiration pneumonia J69.0 CRUZ (acute kidney injury) N17.9 Fever R50.9 Hypercholesterolemia E78.00 Hypertension I10 Hypertension type: essential hypertension Macrocytosis D75.89 Septicemia A41.9 Hypophosphatemia E83.39 Edema R60.9 Sacral ulcer L98.429 (1) Hypertension Hypertension type: essential hypertension Qualified Code(s): I10 - Essential (primary) hypertension (2) Acute pancreatitis Acute pancreatitis complication: unspecified Pancreatitis type: unspecified pancreatitis type Qualified Code(s): K85.90 - Acute pancreatitis without necrosis or infection, unspecified
[2021-06-23] MEDS: INSULIN ASPART 100 UNITS/ML 3 ML PEN SC SCH ×4 (08:02→22:00)
--- NOTE | 2021-06-23 08:12 | Communication Note ---
Date of Service: June 23, 2021 chart reviewed as coverage for psychiatric consult service. No new issues on liaison routine rounding. AMS improved. Please call liaison if additional q uestions/concerns.
[2021-06-23] MEDS: AMIODARONE 200 MG TAB PO SCH (09:38)
[2021-06-23] MEDS: LANSOPRAZOLE 15 MG SOLTAB PO SCH (09:38)
[2021-06-23] MEDS: DOCUSATE SODIUM SYRUP 100 MG/10 ML UDC PO SCH ×2 (09:38→21:45)
[2021-06-23] MEDS: METOPROLOL TARTRATE 25 MG TAB PO SCH ×2 (09:38→21:46)
[2021-06-23] MEDS: APIXABAN 5 MG TABLET PO SCH ×2 (09:39→21:45)
[2021-06-23] MEDS: POLYETHYLENE (MIRALAX) 17 GM PACK PO SCH (09:39)
[2021-06-23] MEDS: ASCORBIC ACID 500 MG TAB PO SCH (09:39)
[2021-06-23] MEDS: THIAMINE HCL 100 MG TAB PO SCH (09:39)
[2021-06-23] MEDS: MULTI VIT W/MINERALS LIQUID 15 ML UDP PO SCH (09:39)
[2021-06-23] MEDS ORDERED: VANCOMYCIN TROUGH ONE (11:30)
--- NOTE | 2021-06-23 13:24 | Pharmacy Report ---
Pharmacy Vanc AUC Short Note - Date of Service June 23, 2021 - Assessment & Plan Assessment 81 year old F receiving vancomycin for treatment of bacteremia. 06/17 BCx growing E. faecalis & Staph epidermidis in 1/2 bottles. 06/19 blood culture (+) CoNS not lugdunensis in 08/17. ? contaminant. Renal function remains stable, persistent leukocytosis. ID consulted. Day # 3 of antimicrobial therapy. Plan Vancomycin * AUC/SHAZIA is the preferred PK/PD target for vancomycin * AUC guided dosing is effective and associated with decreased risk of nephrotoxicity compared to traditional trough targets * Vancomycin trough drawn today, 18.3mcg/mL, was an ~ 10hr steady state level and correlates with an AUC of 558mg/L.hr which is within goal. * Continue dose of 1250 mg IV every 12 hours * Will obtain an additional level if renal function changes or as clinically indicated. Pharmacy will continue to follow and will adjust dose/frequency as necessary. Thank you.
[2021-06-23] MEDS ORDERED: MELATONIN 3 MG TAB PO PRN (21:35)
[2021-06-23] MEDS: OLANZapine ZYDIS 5 MG ORALLY DIS. TAB PO SCH (21:46)
[2021-06-24] MEDS: VANCOMYCIN HCL 1,250 MG in SODIUM CHLORIDE 0.9% 250 ML IV SCH ×2 (01:27→13:02)
[2021-06-24 05:52] LABS: Basophils # (auto) 0.01 K/uL (0-0.2); Basophils % (auto) 0.1 %; Eosinophils # (auto) 0.13 K/uL (0-0.5); Eosinophils % (auto) 0.7 %; Hematocrit (blood only) 30.6 % (37-47); Immature Granulocytes # (auto) 0.08 K/uL (0.00-0.02); Immature Granulocytes % (auto) 0.4 %; Lymphocytes # (auto) 1.14 K/uL (1.2-3.4); Lymphocytes % (auto) 5.9 %; Mean Corpuscular Hemoglobin 31.9 pg (25-34); Mean Corpuscular Hgb Conc 32.7 g/dL (32-36); Mean Corpuscular Volume 97.8 fL (80-100); Mean Platelet Volume 8.9 fL (7.4-10.4); Monocytes # (auto) 1.58 K/uL (0.11-0.59); Monocytes % (auto) 8.2 %; Neutrophils # (auto) 16.23 K/uL (1.4-6.5); Neutrophils % (auto) 84.7 %; Platelet Count 484 K/uL (130-400); RDW Coefficient of Variation 13.9 % (11.5-14.5); RDW Standard Deviation 49.5 fL (36.4-46.3); Red Blood Count 3.13 M/uL (4.2-5.4); White Blood Count 19.17 K/uL (4.8-10.8)
[2021-06-24] MEDS: LEVOTHYROXINE SODIUM 88 MCG TABLET PO SCH (05:58)
[2021-06-24 06:19] LABS: BUN Creatinine Ratio 53.4 (10-20); Creatinine Clr Calc Pharmacy 95.4 ml/min; Potassium 3.6 mmol/L (3.5-5.1)
[2021-06-24] MEDS: INSULIN ASPART 100 UNITS/ML 3 ML PEN SC SCH ×4 (08:00→20:17)
[2021-06-24] MEDS: APIXABAN 5 MG TABLET PO SCH ×2 (08:59→20:16)
[2021-06-24] MEDS: THIAMINE HCL 100 MG TAB PO SCH (08:59)
[2021-06-24] MEDS: ASCORBIC ACID 500 MG TAB PO SCH (08:59)
[2021-06-24] MEDS: LANSOPRAZOLE 15 MG SOLTAB PO SCH (08:59)
[2021-06-24] MEDS: MULTI VIT W/MINERALS LIQUID 15 ML UDP PO SCH (08:59)
[2021-06-24] MEDS: METOPROLOL TARTRATE 25 MG TAB PO SCH ×2 (08:59→20:17)
[2021-06-24] MEDS: POLYETHYLENE (MIRALAX) 17 GM PACK PO SCH (09:00)
[2021-06-24] MEDS: AMIODARONE 200 MG TAB PO SCH (09:00)
[2021-06-24] MEDS: DOCUSATE SODIUM SYRUP 100 MG/10 ML UDC PO SCH ×2 (09:00→20:16)
--- NOTE | 2021-06-24 10:35 | Hospitalist Progress Note ---
Date of Service June 24, 2021 Assessment & Plan (1) Sepsis with acute respiratory failure and septic shock: Plan: This patient is an 81 y/o WF with a PMHx of Hypothyroidism and recurrent pancreatitis admitted 06/10 with acute pancreatitis (Lipase 7778)-- recurrent issues without obvious cause, suspected idiopathic pancreatitis versus autoimmune-daughter reports that this is patient's 12th episode of pancreatitis in her lifetime Treatment of pancreatitis as below - seen by GI early on in the course of admission and plan was for EUS as OP with Dr. Mclain - Patient did not tolerate clear liquids initially- had increased pain and nausea with multiple bouts of emesis which led to aspiration pneumonitis, hypoxia, as well as rapid atrial fibrillation and profound hypotension requiring emergent DC cardioversion, placement on vasopressors and IV amiodarone, and emergent intubation and was transferred to the ICU on the night of 06/11 -Chest x-ray consistent with aspiration pneumonia and she had bronchoscopy to clear out the lungs by pulmonology- Acute respiratory failure with hypoxia secondary to ARDS plus some volume overload -Was then weaned off all vasopressors and weaned off IV hydrocortisone - Blood cultures x2 positive.1x Enterococcus faecalis and 2x coag negative staph. Sensitivities different between [facility]/S epi. ID consulted. - Discussed w/ pharmacy. Given 2x pos culture + and uptrending WBC will tx staph epi with vancomycin, ID consulted as noted - Procalcitonin peaked at 60 downtrended. Repeat pending. - Leukocytosis persists, slightly downtrending today. severe constipation, atelectasis and pneumonia. Sacral ulcer as noted - Pulmonary toilet, bowel regimen, continue to follow and antibiotics as otherwise noted - Repeat UA on 06/20 - for infection, and repeat chest x-ray 06/20 shows persistent pneumonia and atelectasis. KUB shows moderate to severe amount of stool burden but no obstruction. remains afebrile. - Abx Course: Cefepime/Flagyl x5 dayss --> Zosyn x3 days with improvement --> Unasyn. Uptrending wbc and 2x + BC as above, vanco started 06/21, followed by downtrending - Surveillance cultures drawn. Repeat cultures drawn 06/21, PICC versus US PIV placement anticipated depending on whether Vanco was required -Echocardiogram performed earlier this admission without evidence of vegetation on the valves, but this was prior to culture positivity Repeat TTE 06/24/21: Normal LV size with EF greater than 70%, hyperdynamic, moderate left atrial dilation, mild right atrial dilation, sclerotic aortic valve without stenosis, mild to moderate tricuspid regurg, normal estimated right ventricular systolic pressure. Compared to prior study right ventricular systolic pressure has improved. ?Downgrade to ampicillin IV 2g Q4H x14 day total course. Pending final ID recs -Follow CBC, CMP -Asked nurse to continue to mobilize patient out of bed to chair, encourage use of incentive spirometer -Continue to work on bowel regimen for severe constipation (2) Encephalopathy acute: Plan: Improved, at/near baseline Patient with anxiety/agitation and self extubated while in ICU Initially on Precedex drip, was minimally interactive and improved 06/16 and 06/17 with Narcan. 06/18 did well, 06/19 required IV Haldol due to bioinformatics assistant attempts to get out of bed repeatedly with difficult redirecting which improved during daytime, and 11 did well through the night with an evening dose of Zyprexa. Suspect acute encephalopathy due to aspiration pneumonia with additional hospital delirium 06/17 CTH: No acute findings EEG without epileptiform activity, mild encephalopathy during admission Continue pneumonia/sepsis and constipation treatment as otherwise noted Passed speech evaluation for minced and moist Tolerating p.o. well Continue at bedtime Zyprexa (3) Atrial fibrillation with RVR: Plan: - Likely sepsis-driven due to catecholamine release -TTE: Hyperdynamic LV, severe LVH, elevated RVSP at 50-60 mmHg -With profound hypotension as above associated with rapid atrial fibrillation requiring urgent DC cardioversion earlier in her hospital stay and then again requiring phenylephrine -Amiodarone drip converted to p.o. amiodarone 200 mg once daily -Continue therapeutic Lovenox Converted to Eliquis Remains in sinus rhythm, although with frequent ectopy Continue Toprol 75 mg twice daily. Adequate rate with mild hypertension 06/21 Optimize potassium, magnesium (4) Hypothyroid: Plan: TSH here normal at 1.9 Continue levothyroxine (5) Hypernatremia: Plan: -Proved following D5W infusion and encouragement of free water Normalized, 144 on 06/21 -Encourage p.o. intake of free water - Follow BMP (6) Acute pancreatitis: Plan: With a history of recurrent pancreatitis x12. Has not had an episode in about 2 years Previously had gallbladder sludge but patient had declined to have cholecystectomy several years ago -Gallbladder ultrasound here again with gallbladder sludge - She had EUS which showed pancreatic head cyst in 2018 but then did not return for follow-up EUS at [facility] as planned 1 year later. -CT of A/P: pancreatitis without cyst/pseudocyst and ductal dilation - LFT's initially WNL and then only mild elevation in AST after that, total bilirubin normal - MRCP: pancreatitis without cyst/pseudocyst/abscess or ductal dilation - Triglyceride level WNL: 28 -No evidence of hypercalcemia - Patient does not drink ETOH-confirmed with family - Gi: idiopathic versus autoimmune vs related to cyst? Possibly secondary to gallbladder sludge - Also had pancreatic cyst seen on EUS in 2018-this needs repeat EUS for follow- up in 4 weeks after discharge Patient without abdominal pain, tenderness 06/20 and 06/21 - GI saw patient here and plans for outpatient EUS 1 month after discharge (7) Hiatal hernia: Plan: Large hiatal hernia with approximately half the stomach located in the thoracic cavity noted on CT abdomen/pelvis-this puts her at increased risk for aspiration Initially on IV Protonix Continue oral lansoprazole 15 mg daily (8) Aspiration pneumonia: Plan: -As above, continues with now grossly productive cough, remains hypoxic with downtrending oxygen requirement, and mentation is improving -Chest x-ray with left lower lobe collapse and pleural effusion but slightly improved from previous -Pro-Sanjay initially elevated, down trended, repeat pending -Leukocytosis as noted above -With positive blood cultures as above -Initially on cefepime and metronidazole x5 days, then improved more after starting IV Zosyn x3 days, now narrowed down to Unasyn on 06/19-last day of treatment for pneumonia will be 06/23. Patient completed 8 days of anaerobe coverage respiration pneumonia, but requires ongoing treatment for bacteremia above. Blood cultures positive in multiple sets for staph epidermidis, continue Vanco as noted above -Monitor chest x-ray and oxygenation-repeat chest x-ray 06/20 similar to slightly improved aeration on the left -Initially had NG tube for enteral feeds-discontinued this on 06/20 -Speech therapy seen and cleared for minced and moist diet, thin liquids with no straws -Continue incentive spirometry and flutter valve as tolerated -Aspiration precautions (9) CRUZ (acute kidney injury): Plan: With creatinine elevated to 1.68 at peak and normalized Likely secondary to ATN from hypotension and septic shock BMP daily, continue to follow (10) Fever: Plan: As above, now resolved (11) Hypercholesterolemia: Plan: Holding home krill oil (12) Hypertension: Plan: With hypotension as above now while in atrial fibrillation which is now resolved and is actually hypertensive now in a sinus rhythm Now on metoprolol for previous rapid atrial fibrillation. Metoprolol increased as above. Not on medications at home for this (13) Macrocytosis: Plan: B12 and folate normal No history of alcohol use Synthetic liver function seems normal Question if has early MDS? Follow as an outpatient (14) Septicemia: Plan: As above with positive blood cultures Anticipate IV antibiotics at discharge likely requiring PICC as noted (15) Hypophosphatemia: Plan: -Repeat pending (16) Edema: Plan: - Previously with anasarca but intravascularly volume depleted with hypernatremia. IMproving. -Resume diuretics as tolerated by blood pressure -Improve nutrition and albumin (17) Sacral decubitus ulcer, stage III: Plan: continue wound care, compressive dressing, rotate in bed, out of bed to chair as tolerated Plan: DVT prophylaxis Eliquis as noted Disposition-PCU. Clinically improving and progressing towards discharge, white count multifactorial and uptrending but overall clinical improvement, continue to follow and anticipate placement with 14-day course of antibiotics at discharge. Admission and Anticipated Discharge Date Admission Date: June 10, 2021 Subjective Patient seen at the bedside in the company of her . She is sitting up in a chair at time of assessment. Has some pain in her buttock at the location of her sacral ulcer, otherwise denies pain. She reports she is feeling gradually better and better and is looking forward to getting to rehab. Her is concerned about her poor memory of her hospital stay, notes her memory from [facility] weeks ago is intact but she has been somewhat forgetful since being in the hospital. Otherwise is just concerned about the plan moving forward, and getting her to rehab. Discussed ID recommendations, and pending TTE which will determine if she requires ongoing vancomycin therapy. Anticipate she will be medically stable for placement once final antibiotic recommendations are in place. Otherwise is progressing. She had a large bowel movement today, and a smaller bowel movement earlier in the evening. Denies fever, chills, sweats, chest pain, chest pressure, syncope, presyncope today. Denies nausea/vomiting/diarrhea. Endorses diminished appetite using boost for some supplemental nutrition, but overall "just not hungry, may be eating a percent of meals ". She reports she does not have abdominal pain, just loss of appetite. Review of Systems Review of Systems: All systems reviewed & are unremarkable except as noted in Subjective Physical Exam Physical Exam: General: A&Ox3. NAD. Cooperative. Sitting up at bedside with at time of exam. Follows 1 and two-step commands. HEENT: Atraumatic, normocephalic. Visual acuity and hearing grossly intact. Pupils equal and reactive to light. Pulm: Moderate air movement, -wheezes, -rales, -rhonchi. Symmetrical chest rise. No increase work of breathing. No respiratory distress. On 2 L nasal cannula. Cardiac: RRR, -mrg. Radial pulses intact and symmetrical. Abdominal: Nontender, nondistended, soft. BS present. Extremities: Learning Technologist strength and ankle dorsiflexion/plantar flexion intact bilaterally and symmetrical. Right clavicular birthmark present. Radial pulse and PT pulses intact and symmetrical. Moves all extremities equally. Results & Data Results & Data ([facility]) Vital Signs (Past 12 Hours) Vital Signs Temp Pulse Resp BP Pulse Ox 06/24/21 03:10 36.5 C 77 26 H 121/57 L 95 06/23/21 23:15 37.0 C 73 19 137/72 94 PG Care Time/CCT Total # of Minutes Spent Total Time Spent with Patient: Total time spent is greater than 50% in coordination of care (as documented) at patient's floor/unit and/or counseling patient: Coding Level of Care Code 88269 Subseq Hosp Care Lvl 3 Diagnoses Sepsis with acute respiratory failure and septic shock A41.9; R65.21; J96.00 Encephalopathy acute G93.40 Atrial fibrillation with RVR I48.91 Hypothyroid E03.9 Hypernatremia E87.0 Acute pancreatitis K85.90 Acute pancreatitis complication: unspecified Pancreatitis type: unspecified pancreatitis type Hiatal hernia K44.9 Aspiration pneumonia J69.0 CRUZ (acute kidney injury) N17.9 Fever R50.9 Hypercholesterolemia E78.00 Hypertension I10 Hypertension type: essential hypertension Macrocytosis D75.89 Septicemia A41.9 Hypophosphatemia E83.39 Edema R60.9 Sacral decubitus ulcer, stage III L89.153 (1) Hypertension Hypertension type: essential hypertension Qualified Code(s): I10 - Essential (primary) hypertension (2) Acute pancreatitis Acute pancreatitis complication: unspecified Pancreatitis type: unspecified pancreatitis type Qualified Code(s): K85.90 - Acute pancreatitis without necrosis or infection, unspecified
--- NOTE | 2021-06-24 14:09 | XCELERA ---
[id number] \\[id number]
[2021-06-24] MEDS: OLANZapine ZYDIS 5 MG ORALLY DIS. TAB PO SCH (20:18)
[2021-06-25] MEDS: VANCOMYCIN HCL 1,250 MG in SODIUM CHLORIDE 0.9% 250 ML IV SCH (00:43)
[2021-06-25] MEDS: LEVOTHYROXINE SODIUM 88 MCG TABLET PO SCH (04:53)
[2021-06-25 05:40] LABS: BUN Creatinine Ratio 77.3 (10-20); Calcium 8.3 mg/dl (8.5-10.1); Creatinine Clr Calc Pharmacy 61.7 ml/min; Est GFR (African American) 94.4 ml/min; Est GFR (Non-African American) 81.5 ml/min
[2021-06-25 05:43] LABS: Hematocrit (blood only) 22.1 % (37-47); Hemoglobin 6.9 g/dL (12.0-16.0); Mean Corpuscular Hemoglobin 31.7 pg (25-34); Mean Corpuscular Hgb Conc 31.2 g/dL (32-36); Mean Corpuscular Volume 101.4 fL (80-100); Mean Platelet Volume 8.9 fL (7.4-10.4); Platelet Count 497 K/uL (130-400); RDW Coefficient of Variation 13.9 % (11.5-14.5); RDW Standard Deviation 50.7 fL (36.4-46.3); Red Blood Count 2.18 M/uL (4.2-5.4); White Blood Count 25.35 K/uL (4.8-10.8)
[2021-06-25 05:48] LABS: Basophils # (auto) 0.06 K/uL (0-0.2); Basophils % (auto) 0.2 %; Eosinophils # (auto) 0.02 K/uL (0-0.5); Eosinophils % (auto) 0.1 %; Immature Granulocytes # (auto) 0.13 K/uL (0.00-0.02); Immature Granulocytes % (auto) 0.5 %; Lymphocytes # (auto) 2.27 K/uL (1.2-3.4); Monocytes # (auto) 1.78 K/uL (0.11-0.59); Neutrophils # (auto) 21.09 K/uL (1.4-6.5); Neutrophils % (auto) 83.2 %; RBC Morphology Unremarkable
[2021-06-25 06:37] LABS: Hematocrit (blood only) 18.8 % (37-47); Hemoglobin 6.3 g/dL (12.0-16.0)
[2021-06-25] MEDS ORDERED: SODIUM CHLORIDE 0.9% 250 ML IV PRN (06:44)
[2021-06-25] MEDS: INSULIN ASPART 100 UNITS/ML 3 ML PEN SC SCH ×4 (08:23→21:30)
[2021-06-25] MEDS: MULTI VIT W/MINERALS LIQUID 15 ML UDP PO SCH (08:34)
[2021-06-25] MEDS: THIAMINE HCL 100 MG TAB PO SCH (08:34)
[2021-06-25] MEDS: DOCUSATE SODIUM SYRUP 100 MG/10 ML UDC PO SCH ×4 (08:34→21:20)
[2021-06-25] MEDS: METOPROLOL TARTRATE 25 MG TAB PO SCH ×3 (08:34→21:20)
[2021-06-25] MEDS: AMIODARONE 200 MG TAB PO SCH (08:34)
[2021-06-25] MEDS: LANSOPRAZOLE 15 MG SOLTAB PO SCH (08:34)
[2021-06-25] MEDS: ASCORBIC ACID 500 MG TAB PO SCH (08:34)
[2021-06-25] MEDS: POLYETHYLENE (MIRALAX) 17 GM PACK PO SCH (08:36)
--- NOTE | 2021-06-25 12:18 | Hospitalist Progress Note ---
Date of Service June 25, 2021 Assessment & Plan (1) Sepsis with acute respiratory failure and septic shock: Plan: This patient is an 81 y/o WF with a PMHx of Hypothyroidism and recurrent pancreatitis admitted 06/10 with acute pancreatitis (Lipase [id number])-- recurrent issues without obvious cause, suspected idiopathic pancreatitis versus autoimmune-daughter reports that this is patient's 12th episode of pancreatitis in her lifetime Treatment of pancreatitis as below - seen by GI early on in the course of admission and plan was for EUS as OP with Dr. Mclain - Patient did not tolerate clear liquids initially- had increased pain and nausea with multiple bouts of emesis which led to aspiration pneumonitis, hypoxia, as well as rapid atrial fibrillation and profound hypotension requiring emergent DC cardioversion, placement on vasopressors and IV amiodarone, and emergent intubation and was transferred to the ICU on the night of 06/11 -Chest x-ray consistent with aspiration pneumonia and she had bronchoscopy to clear out the lungs by pulmonology- Acute respiratory failure with hypoxia secondary to ARDS plus some volume overload -Was then weaned off all vasopressors and weaned off IV hydrocortisone - Blood cultures x2 positive.1x Enterococcus faecalis and 2x coag negative staph. 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 ID consulted. - Discussed w/ pharmacy. Given 2x pos culture + and uptrending WBC will tx staph epi with vancomycin, ID consulted as noted - Procalcitonin peaked at 60 downtrended. Repeat pending. - Leukocytosis persists, slightly downtrending today. severe constipation, atelectasis and pneumonia. Sacral ulcer as noted - Pulmonary toilet, bowel regimen, continue to follow and antibiotics as otherwise noted - Repeat UA on 06/20 - for infection, and repeat chest x-ray 06/20 shows persistent pneumonia and atelectasis. KUB shows moderate to severe amount of stool burden but no obstruction. remains afebrile. - Abx Course: Cefepime/Flagyl x5 dayss --> Zosyn x3 days with improvement --> Unasyn. Uptrending wbc and 2x + BC as above, vanco started 06/21, followed by downtrending - Surveillance cultures drawn. Repeat cultures drawn 06/21, PICC versus US PIV placement anticipated depending on whether Vanco was required -Echocardiogram performed earlier this admission without evidence of vegetation on the valves, but this was prior to culture positivity Repeat TTE 06/24/21: Normal LV size with EF greater than 70%, hyperdynamic, moderate left atrial dilation, mild right atrial dilation, sclerotic aortic valve without stenosis, mild to moderate tricuspid regurg, normal estimated right ventricular systolic pressure. Compared to prior study right ventricular systolic pressure has improved. ?Downgrade to ampicillin IV 2g Q4H x14 day total course. Pending final ID recs -Follow CBC, CMP -Asked nurse to continue to mobilize patient out of bed to chair, encourage use of incentive spirometer -Continue to work on bowel regimen for severe constipation (2) Anemia: Plan: 06/25 morning patient with large bowel movement, followed by acute hemoglobin drop from 10.0-6.9. Repeat hemoglobin 6.3 Patient ordered 2 units packed red blood cells for transfusion, H&H to be performed 30-60 minutes after completion No active bleeding on exam No melena with bowel movement Occult blood negative BUN acutely elevated from 23-53 Discussed with GI, will continue to follow counts for appropriate rise and signs of melena Clears Eliquis held (3) Encephalopathy acute: Plan: Improved, at/near baseline Patient with anxiety/agitation and self extubated while in ICU Initially on Precedex drip, was minimally interactive and improved 06/16 and 06/17 with Narcan. 06/18 did well, 06/19 required IV Haldol due to armorer technician attempts to get out of bed repeatedly with difficult redirecting which improved during daytime, and 11 did well through the night with an evening dose of Zyprexa. Suspect acute encephalopathy due to aspiration pneumonia with additional hospital delirium 06/17 CTH: No acute findings EEG without epileptiform activity, mild encephalopathy during admission Continue pneumonia/sepsis and constipation treatment as otherwise noted Passed speech evaluation for minced and moist Tolerating p.o. well Continue at bedtime Zyprexa (4) Atrial fibrillation with RVR: Plan: - Likely sepsis-driven due to catecholamine release -TTE: Hyperdynamic LV, severe LVH, elevated RVSP at 50-60 mmHg -With profound hypotension as above associated with rapid atrial fibrillation requiring urgent DC cardioversion earlier in her hospital stay and then again requiring phenylephrine -Amiodarone drip converted to p.o. amiodarone 200 mg once daily Eliquis as noted Remains in sinus rhythm, although with frequent ectopy Continue Toprol 75 mg twice daily. Adequate rate with mild hypertension 06/21 Optimize potassium, magnesium (5) Hypothyroid: Plan: TSH here normal at 1.9 Continue levothyroxine (6) Hypernatremia: Plan: -Proved following D5W infusion and encouragement of free water Normalized, 144 on 06/21 -Encourage p.o. intake of free water - Follow BMP (7) Acute pancreatitis: Plan: With a history of recurrent pancreatitis x12. Has not had an episode in about 2 years Previously had gallbladder sludge but patient had declined to have cholecystectomy several years ago -Gallbladder ultrasound here again with gallbladder sludge - She had EUS which showed pancreatic head cyst in 2018 but then did not return for follow-up EUS at [place] as planned 1 year later. -CT of A/P: pancreatitis without cyst/pseudocyst and ductal dilation - LFT's initially WNL and then only mild elevation in AST after that, total bilirubin normal - MRCP: pancreatitis without cyst/pseudocyst/abscess or ductal dilation - Triglyceride level WNL: 28 -No evidence of hypercalcemia - Patient does not drink ETOH-confirmed with family - Gi: idiopathic versus autoimmune vs related to cyst? Possibly secondary to gallbladder sludge - Also had pancreatic cyst seen on EUS in 2018-this needs repeat EUS for follow- up in 4 weeks after discharge Patient without abdominal pain, tenderness 06/20 and 06/21 - GI saw patient here and plans for outpatient EUS 1 month after discharge (8) Hiatal hernia: Plan: Large hiatal hernia with approximately half the stomach located in the thoracic cavity noted on CT abdomen/pelvis-this puts her at increased risk for aspiration On IV Protonix earlier in admission, converted to lansoprazole 06/25 acute anemia with rise in BUN? Blood loss, patient made n.p.o. and placed back on PPI drip (9) Aspiration pneumonia: Plan: -As above, gradually downtrending oxygen requirements, mentation improving, on 2 L 06/25 -Chest x-ray with left lower lobe collapse and pleural effusion but slightly improved from previous -Pro-Sanjay initially elevated, down trended, repeat pending -Leukocytosis as noted above -With positive blood cultures as above -Initially on cefepime and metronidazole x5 days, then improved more after starting IV Zosyn x3 days, now narrowed down to Unasyn on 06/19-last day of treatment for pneumonia will be 06/23. Patient completed 8 days of anaerobe coverage respiration pneumonia, but requires ongoing treatment for bacteremia above. Blood cultures positive in multiple sets for staph epidermidis, continue Vanco as noted above -Monitor chest x-ray and oxygenation-repeat chest x-ray 06/20 similar to slightly improved aeration on the left -Initially had NG tube for enteral feeds-discontinued this on 06/20 -Speech therapy seen and cleared for minced and moist diet, thin liquids with no straws -Continue incentive spirometry and flutter valve as tolerated -Aspiration precautions (10) CRUZ (acute kidney injury): Plan: With creatinine elevated to 1.68 at peak and normalized Likely secondary to ATN from hypotension and septic shock BMP daily, continue to follow (11) Fever: Plan: As above, now resolved (12) Hypercholesterolemia: Plan: Holding home krill oil (13) Hypertension: Plan: With hypotension as above now while in atrial fibrillation which is now resolved and is actually hypertensive now in a sinus rhythm Now on metoprolol for previous rapid atrial fibrillation. Metoprolol increased as above. Not on medications at home for this (14) Macrocytosis: Plan: B12 and folate normal No history of alcohol use Synthetic liver function seems normal Question if has early MDS? Follow as an outpatient (15) Septicemia: Plan: As above with positive blood cultures See ID recommendations above (16) Hypophosphatemia: Plan: -Repeat pending (17) Edema: Plan: - Previously with anasarca but intravascularly volume depleted with hypernatremia. IMproving. -Resume diuretics as tolerated by blood pressure -Improve nutrition and albumin (18) Sacral decubitus ulcer, stage III: Plan: continue wound care, compressive dressing, rotate in bed, out of bed to chair as tolerated Plan: DVT prophylaxis Eliquis as noted, held 06/25 for bleeding Admission and Anticipated Discharge Date Admission Date: June 10, 2021 Emmanuel Snyder is seen the bedside this morning. She reports she had a very large bowel movement today, which was brown but not grossly bloody/melenic. She is not had a bowel movement since. Occult blood was negative. Following bowel movement her hemoglobin dropped to less than 7, she is undergoing transfusion of 2 units of packed red blood cells. No other source of bleeding, no epistaxis, no wound bleeding. She feels fatigued and tired similar to prior, otherwise does not note a change in symptoms today. She is not dyspneic on exam, is not having chest pain/chest pressure/palpitations. No extremity pain. She does not have abdominal or epigastric pain at time of assessment. Review of Systems Review of Systems: Constitutional: See HPI Eyes: Denies vision change ENT: Denies ear pain, sore throat, sinus pain Cardiovascular: Denies Chest pain, chest pressure, palpitations at time of assessment Respiratory: Denies shortness of breath, cough, sputum production, difficulty breathing at time of assessment. Gastrointestinal: See HPI Genitourinary: Denies dysuria, urinary frequency Musculoskeletal: Endorses global fatigue, global muscular weakness. Integumentary:Denies acute rash, lesions, bruising Neurological: Denies headache, numbness, tingling, focal weakness Physical Exam Physical Exam: General: A&Ox3. NAD. Cooperative. Sitting up at bedside with at time of exam. Follows 1 and two-step commands. HEENT: Atraumatic, normocephalic. Visual acuity and hearing grossly intact. Pupils equal and reactive to light. Pulm: Moderate air movement, -wheezes, -rales, -rhonchi. Symmetrical chest rise. No increase work of breathing. No respiratory distress. On 2 L nasal cannula. Cardiac: RRR, -mrg. Radial pulses intact and symmetrical. Abdominal: Nontender, nondistended, soft. BS present. Extremities: Cook Boat strength and ankle dorsiflexion/plantar flexion intact bilaterally and symmetrical. Right clavicular birthmark present. Radial pulse and PT pulses intact and symmetrical. Moves all extremities equally. Results & Data Results & Data ([facility]) Vital Signs (Past 12 Hours) Vital Signs Temp Pulse Pulse Resp BP Pulse Ox 06/25/21 07:08 36.9 C 77 24 126/57 L 100 06/25/21 04:00 36.5 C 76 24 109/47 L 100 06/24/21 23:31 36.8 C 72 20 107/53 L 98 06/24/21 20:05 36.4 C L 75 24 124/61 98 PG Care Time/CCT Total # of Minutes Spent Total Time Spent with Patient: Total time spent is greater than 50% in coordination of care (as documented) at patient's floor/unit and/or counseling patient: Coding Level of Care Code 23663 Subseq Hosp Care Lvl 3 Diagnoses Sepsis with acute respiratory failure and septic shock A41.9; R65.21; J96.00 Encephalopathy acute G93.40 Atrial fibrillation with RVR I48.91 Hypothyroid E03.9 Hypernatremia E87.0 Acute pancreatitis K85.90 Acute pancreatitis complication: unspecified Pancreatitis type: unspecified pancreatitis type Hiatal hernia K44.9 Aspiration pneumonia J69.0 CRUZ (acute kidney injury) N17.9 Fever R50.9 Hypercholesterolemia E78.00 Hypertension I10 Hypertension type: essential hypertension Macrocytosis D75.89 Septicemia A41.9 Hypophosphatemia E83.39 Edema R60.9 Sacral decubitus ulcer, stage III L89.153 Anemia D64.9 (1) Acute pancreatitis Acute pancreatitis complication: unspecified Pancreatitis type: unspecified pancreatitis type Qualified Code(s): K85.90 - Acute pancreatitis without necrosis or infection, unspecified (2) Hypertension Hypertension type: essential hypertension Qualified Code(s): I10 - Essential (primary) hypertension
[2021-06-25] MEDS: AMPICILLIN/SULBACTAM SOD 3,000 MG in 0.9 % SODIUM CHLORIDE 100 ML IV SCH ×2 (14:33→21:00)
[2021-06-25] MEDS: PANTOprazole 40 MG in DEXTROSE 5% 100 ML IV SCH ×2 (14:34→21:00)
[2021-06-25] MEDS: FAMOTIDINE 20 MG in SYRINGE 3 ML IV SCH ×2 (14:34→21:01)
[2021-06-25 17:12] LABS: Hematocrit (blood only) 26.3 % (37-47); Hemoglobin 8.7 g/dL (12.0-16.0); Mean Corpuscular Hemoglobin 30.2 pg (25-34); Mean Corpuscular Hgb Conc 33.1 g/dL (32-36); Mean Corpuscular Volume 91.3 fL (80-100); Platelet Count 362 K/uL (130-400); RDW Coefficient of Variation 16.7 % (11.5-14.5); RDW Standard Deviation 56.1 fL (36.4-46.3); Red Blood Count 2.88 M/uL (4.2-5.4); White Blood Count 18.27 K/uL (4.8-10.8)
--- NOTE | 2021-06-25 17:24 | Gastroenterology Progress Note ---
Date of Service June 25, 2021 Assessment & Plan (1) Anemia: Plan: 81 year old female w/ prolonged admission with drop in HGB, rising BUN and passage of marroon colored stools, AC held, made NPO on IV PPI and transfused RBC Arrange urgent EGD today Please hold AC Transfuse per primary team continue IV PPI Thank you for allowing us to participate in the care of this patient. Please call with any acute changes, questions or concerns. Please see addendum below with additional recommendation from my supervising physician. Admission and Anticipated Discharge Date Admission Date: June 10, 2021 Supervising Physician Co-Signing Physician Notes Prolonged hospitalization. Now with reports of maroon stool, hgb drop s/p transfusion. Covid negative this admission Pt agreeable to an egd, consent signed. Subjective GI asked to re-evaluate. Drop in HGB, rising BUN on afternoon labs now w/ passage of bright red stools. No abd pain No nausea or vomiting Denies coffee ground emesis or hematemesis Had some dark stools yesterday Had 1-2 bites of sandwhich for lunch around 1130/12 but no appetite so did not eat much NPO ofterwise AC on hold since yesterday evening Review of Systems Review of Systems: All systems reviewed & are unremarkable except as noted in HPI & below Physical Exam Constitutional: WD/WN, vitals as above Respiratory: normal respiratory effort, lungs clear to auscultation Cardiovascular: Rate/Rhythm: regular rate and regular rhythm Gastrointestinal (Abdomen): normal bowel sounds, soft, nontender, no hepatosplenomegaly Skin: no rashes, warm and dry Results & Data ([facility]) Vital Signs (Past 12 Hours) Vital Signs Temp Pulse Pulse Pulse Resp BP BP 06/25/21 16:04 36.6 C 74 27 H 132/78 06/25/21 14:06 77 25 H 124/68 06/25/21 13:36 77 27 H 117/53 L 06/25/21 13:21 37.0 C 74 27 H 111/57 L 06/25/21 13:06 37 C 76 27 H 114/56 L 06/25/21 13:00 37 C 75 22 114/56 L 06/25/21 12:00 37.0 C 79 28 H 115/57 L 06/25/21 10:30 37.0 C 85 28 H 103/88 06/25/21 10:00 36.7 C 76 24 110/54 L 06/25/21 09:45 37.0 C 79 30 H 103/88 06/25/21 09:28 36.5 C 76 25 H 123/52 L 06/25/21 07:08 36.9 C 77 24 126/57 L Pulse Ox 06/25/21 16:04 97 06/25/21 14:06 100 06/25/21 13:36 100 06/25/21 13:21 96 06/25/21 13:06 06/25/21 13:00 94 06/25/21 12:00 98 06/25/21 10:30 99 06/25/21 10:00 100 06/25/21 09:45 97 06/25/21 09:28 100 06/25/21 07:08 100 Laboratory Results 06/25/21 06/25/21 06/25/21 Range/Units 16:55 16:24 16:23 WBC 18.27 H (4.8-10.8) K/uL RBC 2.88 L (4.2-5.4) M/uL Hgb 8.7 L (12.0-16.0) g/dL Hct 26.3 L (37-47) % MCV 91.3 D (80-100) fL MCH 30.2 (25-34) pg MCHC 33.1 (32-36) g/dL RDW Std Deviation 56.1 H (36.4-46.3) fL RDW Coeff of Estrellita 16.7 H (11.5-14.5) % Plt Count 362 (130-400) K/uL MPV 9.0 (7.4-10.4) fL Immature Gran % (Auto) % Neut % (Auto) % Lymph % (Auto) % Robeson % (Auto) % Eos % (Auto) % Baso % (Auto) % Neut # (Auto) (1.4-6.5) K/uL Lymph # (Auto) (1.2-3.4) K/uL Robeson # (Auto) (0.11-0.59) K/uL Eos # (Auto) (0-0.5) K/uL Baso # (Auto) (0-0.2) K/uL Immature Gran # (Auto) (0.00-0.02) K/uL RBC Morphology Sodium (136-145) mmol/L Potassium (3.5-5.1) mmol/L Chloride (98-107) mmol/L Carbon Dioxide (21-32) mmol/L Anion Gap (3-11) BUN (7-18) mg/dl Creatinine (0.6-1.2) mg/dl Est Cr Clr Drug Dosing ml/min Est GFR ( Amer) ml/min Est GFR (Non-Af Amer) ml/min BUN/Creatinine Ratio (10-20) Glucose (70-99) mg/dl POC Glucose 77 66 L* (70-99) mg/dl Calcium (8.5-10.1) mg/dl Blood Type Blood Type Recheck Antibody Screen Crossmatch 06/25/21 06/25/21 06/25/21 Range/Units 11:51 07:11 06:10 WBC (4.8-10.8) K/uL RBC (4.2-5.4) M/uL Hgb (12.0-16.0) g/dL Hct (37-47) % MCV (80-100) fL MCH (25-34) pg MCHC (32-36) g/dL RDW Std Deviation (36.4-46.3) fL RDW Coeff of Estrellita (11.5-14.5) % Plt Count (130-400) K/uL MPV (7.4-10.4) fL Immature Gran % (Auto) % Neut % (Auto) % Lymph % (Auto) % Robeson % (Auto) % Eos % (Auto) % Baso % (Auto) % Neut # (Auto) (1.4-6.5) K/uL Lymph # (Auto) (1.2-3.4) K/uL Robeson # (Auto) (0.11-0.59) K/uL Eos # (Auto) (0-0.5) K/uL Baso # (Auto) (0-0.2) K/uL Immature Gran # (Auto) (0.00-0.02) K/uL RBC Morphology Sodium (136-145) mmol/L Potassium (3.5-5.1) mmol/L Chloride (98-107) mmol/L Carbon Dioxide (21-32) mmol/L Anion Gap (3-11) BUN (7-18) mg/dl Creatinine (0.6-1.2) mg/dl Est Cr Clr Drug Dosing ml/min Est GFR ( Amer) ml/min Est GFR (Non-Af Amer) ml/min BUN/Creatinine Ratio (10-20) Glucose (70-99) mg/dl POC Glucose 96 100 H (70-99) mg/dl Calcium (8.5-10.1) mg/dl Blood Type Blood Type Recheck Cancelled Antibody Screen Crossmatch 06/25/21 06/25/21 06/25/21 Range/Units 06:10 06:10 05:04 WBC (4.8-10.8) K/uL RBC (4.2-5.4) M/uL Hgb 6.3 L* (12.0-16.0) g/dL Hct 18.8 L* (37-47) % MCV (80-100) fL MCH (25-34) pg MCHC (32-36) g/dL RDW Std Deviation (36.4-46.3) fL RDW Coeff of Estrellita (11.5-14.5) % Plt Count (130-400) K/uL MPV (7.4-10.4) fL Immature Gran % (Auto) % Neut % (Auto) % Lymph % (Auto) % Robeson % (Auto) % Eos % (Auto) % Baso % (Auto) % Neut # (Auto) (1.4-6.5) K/uL Lymph # (Auto) (1.2-3.4) K/uL Robeson # (Auto) (0.11-0.59) K/uL Eos # (Auto) (0-0.5) K/uL Baso # (Auto) (0-0.2) K/uL Immature Gran # (Auto) (0.00-0.02) K/uL RBC Morphology Sodium 141 (136-145) mmol/L Potassium 4.0 (3.5-5.1) mmol/L Chloride 110 H (98-107) mmol/L Carbon Dioxide 28 (21-32) mmol/L Anion Gap 3.0 (3-11) BUN 53 H D (7-18) mg/dl Creatinine 0.68 (0.6-1.2) mg/dl Est Cr Clr Drug Dosing 61.7 ml/min Est GFR ( Amer) 94.4 ml/min Est GFR (Non-Af Amer) 81.5 ml/min BUN/Creatinine Ratio 77.3 H (10-20) Glucose 121 H (70-99) mg/dl POC Glucose (70-99) mg/dl Calcium 8.3 L (8.5-10.1) mg/dl Blood Type O Negative Blood Type Recheck Antibody Screen NEGATIVE Crossmatch See Detail 06/25/21 06/24/21 Range/Units 05:04 20:11 WBC 25.35 H (4.8-10.8) K/uL RBC 2.18 L (4.2-5.4) M/uL Hgb 6.9 L* D (12.0-16.0) g/dL Hct 22.1 L (37-47) % MCV 101.4 H (80-100) fL MCH 31.7 (25-34) pg MCHC 31.2 L (32-36) g/dL RDW Std Deviation 50.7 H (36.4-46.3) fL RDW Coeff of Estrellita 13.9 (11.5-14.5) % Plt Count 497 H (130-400) K/uL MPV 8.9 (7.4-10.4) fL Immature Gran % (Auto) 0.5 % Neut % (Auto) 83.2 % Lymph % (Auto) 9.0 % Robeson % (Auto) 7.0 % Eos % (Auto) 0.1 % Baso % (Auto) 0.2 % Neut # (Auto) 21.09 H (1.4-6.5) K/uL Lymph # (Auto) 2.27 (1.2-3.4) K/uL Robeson # (Auto) 1.78 H (0.11-0.59) K/uL Eos # (Auto) 0.02 (0-0.5) K/uL Baso # (Auto) 0.06 (0-0.2) K/uL Immature Gran # (Auto) 0.13 H (0.00-0.02) K/uL RBC Morphology Unremarkable Sodium (136-145) mmol/L Potassium (3.5-5.1) mmol/L Chloride (98-107) mmol/L Carbon Dioxide (21-32) mmol/L Anion Gap (3-11) BUN (7-18) mg/dl Creatinine (0.6-1.2) mg/dl Est Cr Clr Drug Dosing ml/min Est GFR ( Amer) ml/min Est GFR (Non-Af Amer) ml/min BUN/Creatinine Ratio (10-20) Glucose (70-99) mg/dl POC Glucose 137 H (70-99) mg/dl Calcium (8.5-10.1) mg/dl Blood Type Blood Type Recheck Antibody Screen Crossmatch
--- NOTE | 2021-06-25 17:42 | Anesthesiology Consultation ---
Date of Service June 25, 2021 Assessment & Plan Chart Review Chart Review: Acceptable Risk for Surgery Consults Requested none History Surgery Operation Date: 06/25/21 17:45 Proposed Procedures p Esophagogastroduodenoscopy - Betsey Mckeon MD Height/Weight Height: 5 ft Weight: 87 kg Allergies Allergy/AdvReac Type Severity Reaction Status Date / Time bee venom protein (honey bee) Allergy Severe HAS AN Verified 06/10/21 19:10 EPIPEN FOR REACTIONS latex Allergy Intermediate HIVES Verified 06/10/21 19:10 Iodinated Contrast Media Allergy Mild RASH Verified 06/10/21 19:10 Medications Home Medications Medication Instructions Recorded Confirmed Last Taken cyanocobalamin (vitamin B-12) 1,000 mcg PO QAM tab 02/27/19 06/10/21 06/09/21 1,000 mcg tablet,extended release cyclosporine 0.05 % eye drops in a 1 drp OPB Q12H 03/26/19 06/10/21 06/10/21 08:00 dropperette (Restasis) epinephrine 0.3 mg/0.3 mL 0.3 mg IM DIRECTED PRN 03/26/19 06/10/21 Unknown injection, auto-injector (EpiPen) multivitamin with minerals 1 tab PO QAM 03/26/19 06/10/21 06/09/21 metronidazole 0.75 % topical cream 1 appln TOP DAILY PRN 12/19/19 06/10/21 Unknown ascorbate calcium (vitamin C) 500 500 mg PO DAILY #30 tab 12/30/19 06/10/21 06/09/21 mg tablet cholecalciferol (vitamin D3) 125 125 mcg PO DAILY #30 cap 12/30/19 06/10/21 06/09/21 mcg (5,000 unit) capsule coenzyme Q10 200 mg capsule 200 mg PO DAILY #30 cap 12/30/19 06/10/21 06/09/21 cranberry fruit concentrate 250 mg 250 mg PO DAILY #90 tab 12/30/19 06/10/21 06/09/21 chewable tablet (Azo Cranberry) echinacea 400 mg capsule 400 mg PO DAILY #90 cap 12/30/19 06/10/21 06/09/21 krill oil 500 mg capsule 500 mg PO DAILY #30 cap 12/30/19 06/10/21 06/09/21 lutein 25 mg-zeaxanthin 5 mg 1 cap PO DAILY #30 cap 12/30/19 06/10/21 06/09/21 capsule magnesium 250 mg tablet 325 mg PO DAILY tab 06/09/20 06/10/21 06/09/21 levothyroxine 88 mcg tablet 88 mcg PO QAM #90 tab 09/01/20 06/10/21 06/10/21 (Synthroid) melatonin 5 mg capsule 10 mg PO HS #30 cap 04/08/21 06/10/21 06/09/21 Active Medications Generic Name Dose Route Start Last Admin Trade Name Jack PRN Reason Stop Dose Admin Amiodarone HCl 200 mg 06/18/21 09:00 06/25/21 08:34 Amiodarone 200 Mg Tab PO 07/18/21 08:59 200 mg QAM SILVA Administration Apixaban 5 mg 06/22/21 21:00 06/24/21 20:16 Apixaban 5 Mg Tablet PO 07/22/21 20:59 5 mg BID SILVA Administration Ascorbic Acid 500 mg 06/21/21 09:00 06/25/21 08:34 Ascorbic Acid 500 Mg Tab PO 07/21/21 08:59 500 mg DAILY SILVA Administration Docusate Sodium 100 mg 06/20/21 21:00 06/25/21 08:49 Docusate Sodium Syrup 100 Mg/10 Ml Udc PO 07/20/21 20:59 Not Given BID SILVA Pantoprazole Sodium 40 mg/ 100 mls @ 20 mls/hr 06/25/21 12:30 06/25/21 14:34 Dextrose IV 07/25/21 12:29 8 mg/hr Q5H SILVA 20 mls/hr Administration 8 MG/HR Famotidine 20 mg/ Syringe 5 mls @ 2.5 mls/min 06/25/21 12:30 06/25/21 14:34 IV 07/25/21 12:29 2.5 mls/min BID SILVA Administration Ampicillin Sodium/Sulbactam 108 mls @ 216 mls/hr 06/25/21 13:30 06/25/21 15:49 Sodium 3,000 mg/ Sodium IV 07/09/21 13:29 Infused Chloride Q6H SILVA Infusion Insulin Aspart 0 units 06/20/21 11:30 06/25/21 17:00 Insulin Aspart 100 Units/Ml 3 Ml Pen SC 07/20/21 11:29 Not Given ACHS SILVA Levothyroxine Sodium 88 mcg 06/19/21 06:30 06/25/21 04:53 Levothyroxine Sodium 88 Mcg Tablet PO 07/19/21 06:29 88 mcg DAILYBB SILVA Administration Melatonin 3 mg 06/23/21 21:35 06/23/21 21:56 Melatonin 3 Mg Tab PO 07/23/21 21:34 3 mg HS PRN Administration Sleep Metoprolol Tartrate 2.5 mg 06/17/21 09:34 06/17/21 16:56 Metoprolol Tartrate 1 Mg/Ml Vial IV 07/17/21 09:44 2.5 mg Q6H PRN Administration SBP > 160 Metoprolol Tartrate 75 mg 06/22/21 09:00 06/25/21 08:34 Metoprolol Tartrate 25 Mg Tab PO 07/22/21 08:59 75 mg Q12 SILVA Administration Miscellaneous 1 ea 06/11/21 08:00 06/25/21 15:59 Cyclosporine [Restasis]: Order Awaiting Action N/A 07/11/21 07:59 Not Given QS SILVA Multivitamins/Minerals 15 ml 06/21/21 09:00 06/25/21 08:34 Multi Vit W/Minerals Liquid 15 Ml Udp PO 07/21/21 08:59 15 ml QAM SILVA Administration Olanzapine 2.5 mg 06/19/21 21:00 06/24/21 20:18 Olanzapine Zydis 5 Mg Orally Dis. Tab PO 07/19/21 20:59 2.5 mg HS SILVA Administration Ondansetron HCl 4 mg 06/10/21 23:40 06/15/21 08:15 Ondansetron Inj 2 Mg/Ml 2 Ml Vial IV 07/10/21 23:39 4 mg Q6H PRN Administration Nausea Polyethylene Glycol 17 gm 06/21/21 09:00 06/25/21 08:36 Polyethylene (Miralax) 17 Gm Pack PO 07/21/21 08:59 Not Given DAILY SILVA Thiamine HCl 100 mg 06/18/21 09:00 06/25/21 08:34 Thiamine Hcl 100 Mg Tab PO 07/18/21 08:59 100 mg QAM SILVA Administration Past Medical History Medical History Acute pancreatitis ARDS (adult respiratory distress syndrome) Arthritis Hiatal hernia Hypertension Hypothyroid Hypothyroidism Lyme disease Macrocytosis Recurrent pancreatitis Past Family History Family History Mother Emphysema lung Father Myocardial infarction Hypertension Denies family history of Colon cancer Ovarian cancer Prostate cancer Autoimmune disease Pancreatitis Breast cancer Past Surgical History Surgical History H/O cataract extraction S/P bunionectomy right foot X 2 S/P tonsillectomy and adenoidectomy age 14 years Social History Smoking Status: Never smoker Hx Alcohol Use: No Hx Substance Use: No substance use type: does not use Physical Exam Vital Signs Last Vital Signs Temp 36.6 C 06/25/21 16:04 Pulse 74 06/25/21 16:04 Resp 27 H 06/25/21 16:04 BP 132/78 06/25/21 16:04 Pulse Ox 97 06/25/21 16:04 Testing Laboratory Results 06/25/21 16:55 06/25/21 05:04 PT 11.3 Seconds (9.0-12.0) 06/16/21 04:34 INR 1.1 (0.9-1.1) 06/16/21 04:34 APTT 22.3 Seconds (21.0-31.0) 06/10/21 18:20 Hemoglobin A1c 5.9 % (4.5-5.6) H 06/21/21 04:41 Urine Color Dark Yellow 06/20/21 10:35 Urine Appearance Clear (Clear) 06/20/21 10:35 Urine pH 5.0 (4.5-7.5) 06/20/21 10:35 Ur Specific [place] 1.023 (1.000-1.030) 06/20/21 10:35 Urine Protein 1+ (Negative) H 06/20/21 10:35 Urine Glucose (UA) Trace (Negative) H 06/20/21 10:35 Urine Ketones Trace (Negative) H 06/20/21 10:35 Urine Nitrite Negative (Negative) 06/20/21 10:35 Ur Leukocyte Esterase Negative (Negative) 06/20/21 10:35 Urine WBC (Auto) 0 /hpf (0-5) 06/20/21 10:35 Urine RBC (Auto) 5-10 /hpf (0-4) H 06/20/21 10:35 U Hyaline Cast (Auto) 1-5 /lpf (0-5) 06/20/21 10:35 U Epithel Cells (Auto) 5-10 /lpf (0-5) H 06/20/21 10:35 Urine Bacteria (Auto) Negative (Negative) 06/20/21 10:35 Blood Type O Negative 06/25/21 06:10 Antibody Screen NEGATIVE 06/25/21 06:10 06/19/21 05:40 Aerobic Blood Culture - Final Blood Coag neg staph not lugdunensis Anaerobic Blood Culture - Final No growth in Anaerobic bottle after 5 days. 06/17/21 11:08 Aerobic Blood Culture - Final Blood Enterococcus faecalis Staphylococcus epidermidis Anaerobic Blood Culture - Final 06/19/21 05:41 Aerobic Blood Culture - Final Blood No growth in Aerobic bottle after 5 days. Anaerobic Blood Culture - Final No growth in Anaerobic bottle after 5 days. 06/21/21 16:27 Aerobic Blood Culture - Preliminary Blood No growth in Aerobic bottle after 48 hours. Anaerobic Blood Culture - Final 06/21/21 16:27 Aerobic Blood Culture - Preliminary Blood No growth in Aerobic bottle after 48 hours. Anaerobic Blood Culture - Final 06/17/21 10:43 Aerobic Blood Culture - Final Blood No growth in Aerobic bottle after 5 days. Anaerobic Blood Culture - Final 06/12/21 14:58 Aerobic Blood Culture - Final Blood No growth in Aerobic bottle after 5 days. Anaerobic Blood Culture - Final No growth in Anaerobic bottle after 5 days. 06/12/21 14:50 Aerobic Blood Culture - Final Blood No growth in Aerobic bottle after 5 days. Anaerobic Blood Culture - Final No growth in Anaerobic bottle after 5 days. 06/12/21 Unknown Gram Stain - Final Sputum,Vent Suction Sputum Culture - Final Light normal [place]. 06/25/21 06/25/21 06/25/21 17:20 16:24 16:23 POC Glucose 81 77 66 L* 06/25/21 06/25/21 11:51 07:11 POC Glucose 96 100 H
[2021-06-25] MEDS ORDERED: PROPOFOL IV EMULSION 10 MG/ML 20 ML VIAL IV ONE (17:48)
[2021-06-25] MEDS ORDERED: ONDANSETRON INJ 2 MG/ML 2 ML VIAL ONE (17:48)
[2021-06-25] MEDS ORDERED: SUCCINYLCHOLINE CHLORIDE 20 MG/ML 10 ML VIAL IV ONE (17:48)
[2021-06-25] MEDS ORDERED: ROCURONIUM BROMIDE 10 MG/ML 5 ML VIAL IV ONE (17:48)
[2021-06-25] MEDS ORDERED: LIDOCAINE 2% 2 ML VIAL/AMP(20MG/ML) INFIL ONE (17:48)
[2021-06-25] MEDS ORDERED: fentaNYL citrate 100 MCG/2 ML VIAL ONE (17:48)
[2021-06-25] MEDS ORDERED: METOCLOPRAMIDE HCL INJ 5 MG/ML 2 ML VIAL ONE (18:26)
[2021-06-25] MEDS ORDERED: PHENYLEPHRINE 100MCG/ML 5ML SYR ONE (18:33)
[2021-06-25] MEDS ORDERED: ePHEDrine sulfate 50 MG/ML SYR ONE (18:33)
--- NOTE | 2021-06-25 18:47 | Operative Report ---
PG Post Operative Report Pre & Post Diagnosis Operation Date: 06/25/21 17:45 Pre-Op Diagnosis: Anemia Post-Op Diagnosis: Upper gastrointestinal bleed, gastric ulcer I identified the patient and participated in the time-out.: Yes Procedure Operation Date: 06/25/21 17:45 Actual Procedures p Esophagogastroduodenoscopy with control of bleeding and evacuation of clots(Not Applicable) - Betsey Mckeon MD Surgeon Betsey Mckeon MD Hand Cooper Helper Tg Claudio Estimated Blood Loss 100 Findings Consistent with Post-Op Diagnosis Specimens None Indications Hematochezia Description of Procedure EGD completed with poor visualization due to blood clots present in addition to food. After Reglan was given and mild lavage, the esophagus was visualized, a blood clot that was adhered was noticed in the stomach, in the body approaching the antrum there appeared to be a large gastric ulcer with a mild pigmented spot- 5 clips were placed to help close the ulcer without evidence of further gi bleeding noted, one clip deployed on its own and will pass The duodenum was then visualized- the bulb and second portion- no evidence of ulceration or active bleeding was noted, maroonish hematin was noted that was lavaged without evidence of ulceration or bleeding. I attest to the content of the Intraoperative Record and any orders documented therein. Any exceptions are noted below.
[2021-06-25] MEDS ORDERED: ATROPINE SULFATE 0.1 MG/ML 10ML SYR IV PRN (18:53)
[2021-06-25] MEDS ORDERED: ePHEDrine sulfate 50 MG/ML AMP IV PRN (18:53)
--- NOTE | 2021-06-25 19:05 | GI REPORT ---
Patient Name: Yesy Vidales Procedure Date: 06/25/2021 5:33 PM Date of : 1940 Admit Type: Inpatient Age: 81 Gender: Female Attending MD: Betsey Mckeon M.d. Procedure: Upper GI endoscopy Providers: Betsey Mckeon M.d. Referring MD: Soham Snyder Iv, M.d. Indications: Hematochezia Medicines: See Anesthesia Record See anesthesia record Complications: No immediate complications. Estimated Blood Loss: 100 cc Procedure: Pre-Anesthesia Assessment: - Patient identification and proposed procedure were verified prior to the procedure by the physician, the nurse and the anesthesiologist. The procedure was verified in the pre-procedure area. - Prior to the procedure, a History and Physical was performed, and patient medications, allergies and sensitivities were reviewed. The patient's tolerance of previous anesthesia was reviewed. - The risks and benefits of the procedure and the sedation options and risks were discussed with the patient. All questions were answered and informed consent was obtained. After obtaining informed consent, the endoscope was passed under direct vision. Throughout the procedure, the patient's blood pressure, pulse, and oxygen saturations were monitored continuously. The Scope was introduced through the mouth, and advanced to the second part of duodenum. The upper GI endoscopy was somewhat difficult due to poor endoscopic visualization. Somewhat cuccessful completion of the procedure was aided by lavage and administration of 10 mg Reglan Findings: The examined esophagus appeared normal. Hematin (altered blood/fawqpx-vlvrcv-szhi material) was found in the stomach on entry in additiona to a a very large blood clot that despite lavage did not lavage off and was not pulsatile. One non-bleeding cratered large gastric ulcer with a visible vessel was found in the gastric body that appeared almost as a tear. The tissue edges were approximated and five hemostatic clips were successfully placed (MR conditional). One additional clip was deployed just on entry into the stomach. Closure of the ulcerated area was successful. There was no bleeding at the end of the procedure. An additional non-bleeding cratered gastric ulcer with pigmented material was found in the stomach that with lavage showed it to be a superficial ulcer without a visible vessel. A large amount of food was found in the gastric body towards the antrum that could not be lavaged or suctioned. The duodenal bulb and second portion of the duodenum appeared normal though hematin - presumable from forward motion of the hematin that had been her stomach. Impression: - Normal esophagus. - Hematin (altered blood/nswumm-jayjdo-emrn material) in the stomach. - Non-bleeding gastric ulcer with a visible vessel. Clips (MR conditional) were placed. - Non-bleeding gastric ulcer with pigmented material. - A large amount of food (residue) in the stomach. - Normal duodenal bulb and second portion of the duodenum. Recommendation: -Suspect she had stress ulceration given prolonged hospital stay along with use of Eliquis. - Hold all blood thinners for now- including Eliquis. - Follow hgb- transfuse if needed. - NPO for now. - IV PPI drip for 72 hours, consider carafate 1 gram qid. Betsey Mckeon M.D. Betsey Mckeon M.d. 06/25/2021 7:04:53 PM This report has been signed electronically. Note Initiated On: 06/25/2021 5:33 PM Number of Addenda: 0 I attest to the content of the Intraoperative Record and orders documented therein, exceptions below {[id number]}
[2021-06-25] MEDS ORDERED: metroNIDAZOLE 0.75% TOPICAL GEL 45 GM TUBE TOP PRN (19:16)
[2021-06-25] MEDS ORDERED: EPINEPHrine ADULT AUTO-INJECT 0.3 MG SYR IM PRN (19:16)
--- NOTE | 2021-06-25 20:20 | Anesthesiology Progress Note ---
Date of Service June 25, 2021 Anesthesia Post Procedure Vital Signs Vital Signs: Temp Pulse Pulse Pulse Resp BP BP 06/25/21 19:45 88 27 H 128/58 L 06/25/21 19:35 36.4 C L 90 28 H 119/69 06/25/21 19:25 91 H 26 H 122/67 06/25/21 19:15 95 H 28 H 116/74 06/25/21 19:05 96 H 24 143/69 H 06/25/21 18:58 36.1 C L 96 H 26 H 137/71 06/25/21 17:45 37 C 77 24 135/61 06/25/21 17:05 77 06/25/21 16:04 36.6 C 74 27 H 132/78 06/25/21 14:06 77 25 H 124/68 06/25/21 13:36 77 27 H 117/53 L 06/25/21 13:21 37.0 C 74 27 H 111/57 L 06/25/21 13:06 37 C 76 27 H 114/56 L 06/25/21 13:00 37 C 75 22 114/56 L 06/25/21 12:00 37.0 C 79 28 H 115/57 L 06/25/21 10:30 37.0 C 85 28 H 103/88 06/25/21 10:00 36.7 C 76 24 110/54 L 06/25/21 09:45 37.0 C 79 30 H 103/88 06/25/21 09:28 36.5 C 76 25 H 123/52 L 06/25/21 07:08 36.9 C 77 24 126/57 L 06/25/21 04:00 36.5 C 76 24 109/47 L 06/24/21 23:31 36.8 C 72 20 107/53 L Pulse Ox 06/25/21 19:45 99 06/25/21 19:35 97 06/25/21 19:25 95 06/25/21 19:15 92 06/25/21 19:05 94 06/25/21 18:58 94 06/25/21 17:45 97 06/25/21 17:05 06/25/21 16:04 97 06/25/21 14:06 100 06/25/21 13:36 100 06/25/21 13:21 96 06/25/21 13:06 11/12/21 13:00 94 06/25/21 12:00 98 06/25/21 10:30 99 06/25/21 10:00 100 06/25/21 09:45 97 06/25/21 09:28 100 06/25/21 07:08 100 06/25/21 04:00 100 06/24/21 23:31 98 Pain Intensity Right Lower Abdomen: Pain Intensity: 6 Abdomen: Pain Intensity: 10 Transfer of Care Handoff Completed per policy Notes Mental Status: alert / awake / arousable and participated in evaluation Patient Amnestic to Procedure: Yes Nausea / Vomiting: adequately controlled Pain: adequately controlled Airway Patency, RR, SpO2: stable & adequate BP & HR: stable & adequate Hydration State: stable & adequate Anesthetic Complications: no major complications apparent
[2021-06-25] MEDS: OLANZapine ZYDIS 5 MG ORALLY DIS. TAB PO SCH ×2 (21:02→21:20)
[2021-06-25] MEDS: MELATONIN 3 MG TAB PO SCH ×2 (21:05→21:20)
[2021-06-25] MEDS: APIXABAN 5 MG TABLET PO SCH (21:18)
[2021-06-26] MEDS: PANTOprazole 40 MG in DEXTROSE 5% 100 ML IV SCH ×5 (02:06→23:36)
[2021-06-26] MEDS: AMPICILLIN/SULBACTAM SOD 3,000 MG in 0.9 % SODIUM CHLORIDE 100 ML IV SCH ×4 (02:06→20:34)
[2021-06-26 05:02] LABS: Hematocrit (blood only) 23.4 % (37-47); Hemoglobin 7.4 g/dL (12.0-16.0); Mean Corpuscular Hgb Conc 31.6 g/dL (32-36); Mean Corpuscular Volume 94.7 fL (80-100); Mean Platelet Volume 8.6 fL (7.4-10.4); Platelet Count 380 K/uL (130-400); RDW Coefficient of Variation 17.1 % (11.5-14.5); RDW Standard Deviation 58.7 fL (36.4-46.3); Red Blood Count 2.47 M/uL (4.2-5.4); White Blood Count 14.08 K/uL (4.8-10.8)
[2021-06-26 05:18] LABS: Basophils # (auto) 0.04 K/uL (0-0.2); Basophils % (auto) 0.3 %; Eosinophils # (auto) 0.07 K/uL (0-0.5); Eosinophils % (auto) 0.5 %; Immature Granulocytes # (auto) 0.06 K/uL (0.00-0.02); Immature Granulocytes % (auto) 0.4 %; Lymphocytes # (auto) 1.66 K/uL (1.2-3.4); Lymphocytes % (auto) 11.8 %; Monocytes # (auto) 1.38 K/uL (0.11-0.59); Monocytes % (auto) 9.8 %; Neutrophils # (auto) 10.87 K/uL (1.4-6.5); Neutrophils % (auto) 77.2 %; RBC Morphology Unremarkable
[2021-06-26 05:24] LABS: BUN Creatinine Ratio 63.1 (10-20); Calcium 7.5 mg/dl (8.5-10.1); Creatinine Clr Calc Pharmacy 72.1 ml/min; Est GFR (African American) 98.9 ml/min; Est GFR (Non-African American) 85.4 ml/min; Potassium 3.6 mmol/L (3.5-5.1)
[2021-06-26] MEDS: LEVOTHYROXINE SODIUM 88 MCG TABLET PO SCH (06:06)
[2021-06-26] MEDS ORDERED: LEVOTHYROXINE SODIUM 88 MCG TABLET PO SCH (06:30)
--- NOTE | 2021-06-26 07:14 | Hospitalist Progress Note ---
Date of Service June 26, 2021 Assessment & Plan (1) Sepsis with acute respiratory failure and septic shock: Plan: This patient is an 81 y/o WF with a PMHx of Hypothyroidism and recurrent pancreatitis admitted 06/10 with acute pancreatitis (Lipase [id number])-- recurrent issues without obvious cause, suspected idiopathic pancreatitis versus autoimmune-daughter reports that this is patient's 12th episode of pancreatitis in her lifetime Treatment of pancreatitis as below - seen by GI early on in the course of admission and plan was for EUS as OP with Dr. Mclain - Patient did not tolerate clear liquids initially- had increased pain and nausea with multiple bouts of emesis which led to aspiration pneumonitis, hypoxia, as well as rapid atrial fibrillation and profound hypotension requiring emergent DC cardioversion, placement on vasopressors and IV amiodarone, and emergent intubation and was transferred to the ICU on the night of 06/11 -Chest x-ray consistent with aspiration pneumonia and she had bronchoscopy to clear out the lungs by pulmonology- Acute respiratory failure with hypoxia secondary to ARDS plus some volume overload -Was then weaned off all vasopressors and weaned off IV hydrocortisone - Blood cultures x2 positive.1x Enterococcus faecalis and 2x coag negative staph. Sensitivities different between PRINCIPAL ARCHAEOLOGIST/S epi. ID consulted. - Discussed w/ pharmacy. Given 2x pos culture + and uptrending WBC treated with Vanc, no improvement in WBC, TTE- as noted, switched to Unasyn as noted. - Procalcitonin peaked at 60 downtrended. - Pulmonary toilet, bowel regimen, continue to follow and antibiotics as otherwise noted - Repeat UA on 06/20 - for infection, and repeat chest x-ray 06/20 shows persistent pneumonia and atelectasis. KUB shows moderate to severe amount of stool burden but no obstruction. remains afebrile. - Abx Course: Cefepime/Flagyl x5 dayss --> Zosyn x3 days with improvement --> Unasyn. Uptrending wbc and 2x + BC as above, vanco started 06/21 --> Unasyn 06/25 - Surveillance cultures drawn. -Echocardiogram performed earlier this admission without evidence of vegetation on the valves, but this was prior to culture positivity Repeat TTE 06/24/21: Normal LV size with EF greater than 70%, hyperdynamic, moderate left atrial dilation, mild right atrial dilation, sclerotic aortic valve without stenosis, mild to moderate tricuspid regurg, normal estimated right ventricular systolic pressure. Compared to prior study right ventricular systolic pressure has improved. 06/24/21-06/25/21: Initially to downgrade to Ampicillin, Unasyn selected for GI coverage 2/2 bleeding. Will require 14 days of amp coverage minimum from - , consider enteric coverage based on clinical improvement with Unasyn and residual WBC on Vanco - Leukocytosis persists, improving while on Unasyn. Constipation improved, anemia following melana as noted below. ?Biliary sludge -Follow CBC, CMP -Asked nurse to continue to mobilize patient out of bed to chair, encourage use of incentive spirometer -Continue to work on bowel regimen for severe constipation (2) Anemia: Plan: 06/25 morning patient with large bowel movement, followed by acute hemoglobin drop from 10.0-6.9. Repeat hemoglobin 6.3 Patient ordered 2 units packed red blood cells for transfusion. Pt kris appropriately to 8.7 No active bleeding on exam, no initial AM melena, BUN acutely elevated from 23- 53 - Large melanic BM in PM - Seen by GI, large gastric ulcer nonbleeding with clot present. 5x clips placed. - Post-op drop to 7.4, trended - Continue PPI IV for 72 hours Eliquis held. Discussed clot vs bleeding risk with pt at bedside - NPO + cardiac meds (3) Encephalopathy acute: Plan: Improved, not yet at baseline but improving Patient with anxiety/agitation and self extubated while in ICU Initially on Precedex drip, was minimally interactive and improved 06/16 and 06/17 with Narcan. 06/18 did well, 06/19 required IV Haldol due to companion attempts to get out of bed repeatedly with difficult redirecting which improved during daytime, and 11 did well through the night with an evening dose of Zyprexa. Suspect acute encephalopathy due to aspiration pneumonia with additional hospital delirium 06/17 CTH: No acute findings EEG without epileptiform activity, mild encephalopathy during admission Continue pneumonia/sepsis and constipation treatment as otherwise noted Passed speech evaluation for minced and moist Tolerating p.o. well Continue at bedtime Zyprexa (4) Atrial fibrillation with RVR: Plan: - Likely sepsis-driven due to catecholamine release -TTE: Hyperdynamic LV, severe LVH, elevated RVSP at 50-60 mmHg -With profound hypotension as above associated with rapid atrial fibrillation requiring urgent DC cardioversion earlier in her hospital stay and then again requiring phenylephrine. Pressors d/merissa -Amiodarone drip converted to p.o. amiodarone 200 mg once daily Eliquis as noted Remains in sinus rhythm, although with frequent ectopy Continue Toprol 75 mg twice daily. Adequate rate with mild hypertension 06/21 Optimize potassium, magnesium (5) Hypothyroid: Plan: TSH here normal at 1.9 Continue levothyroxine (6) Hypernatremia: Plan: -Improved following D5W infusion and encouragement of free water Normalized, 144 on 06/21 -Encourage p.o. intake of free water - Follow BMP (7) Acute pancreatitis: Plan: With a history of recurrent pancreatitis x12. Has not had an episode in about 2 years Previously had gallbladder sludge but patient had declined to have cholecystectomy several years ago -Gallbladder ultrasound here again with gallbladder sludge - Pt tx with extensive abx as above, and continued to have residual WBC count on Vanco monotherapy which quickly dropped with Unasyn tx. ?GB involvement and need for enteric coverage - She had EUS which showed pancreatic head cyst in 2018 but then did not return for follow-up EUS at [place] as planned 1 year later. -CT of A/P: pancreatitis without cyst/pseudocyst and ductal dilation - LFT's initially WNL and then only mild elevation in AST after that, total bilirubin normal - MRCP: pancreatitis without cyst/pseudocyst/abscess or ductal dilation - Triglyceride level WNL: 28 -No evidence of hypercalcemia - Patient does not drink ETOH-confirmed with family - Gi: idiopathic versus autoimmune vs related to cyst? Possibly secondary to gallbladder sludge - Also had pancreatic cyst seen on EUS in 2018-this needs repeat EUS for follow- up in 4 weeks after discharge Patient without abdominal pain, tenderness 06/20 and 06/21 - GI saw patient here and plans for outpatient EUS 1 month after discharge (8) Hiatal hernia: Plan: Large hiatal hernia with approximately half the stomach located in the thoracic cavity noted on CT abdomen/pelvis-this puts her at increased risk for aspiration On IV Protonix earlier in admission, converted to lansoprazole 06/25 acute anemia with rise in BUN? Blood loss, patient made n.p.o. and placed back on PPI drip (9) Aspiration pneumonia: Plan: -As above, gradually downtrending oxygen requirements, mentation improving, on 2 L 06/25 -Chest x-ray with left lower lobe collapse and pleural effusion but slightly improved from previous -Pro-Sanjay initially elevated, down trended, repeat pending -Leukocytosis as noted above -With positive blood cultures as above -Initially on cefepime and metronidazole x5 days, then improved more after starting IV Zosyn x3 days, now narrowed down to Unasyn on 06/19-last day of treatment for pneumonia will be 06/23. Patient completed 8 days of anaerobe coverage respiration pneumonia, but requires ongoing treatment as above. Blood cultures positive in multiple sets for staph epidermidis -Monitor chest x-ray and oxygenation-repeat chest x-ray 06/20 similar to slightly improved aeration on the left -Initially had NG tube for enteral feeds-discontinued this on 06/20 -Speech therapy seen and cleared for minced and moist diet, thin liquids with no straws -Continue incentive spirometry and flutter valve as tolerated -Aspiration precautions (10) CRUZ (acute kidney injury): Plan: With creatinine elevated to 1.68 at peak and normalized Likely secondary to ATN from hypotension and septic shock BMP daily, continue to follow (11) Fever: Plan: As above, now resolved (12) Hypercholesterolemia: Plan: Holding home krill oil (13) Hypertension: Plan: With hypotension as above now while in atrial fibrillation which is now resolved, became hypertensive in a sinus rhythm Now on metoprolol for previous rapid atrial fibrillation. Metoprolol increased as above. Not on medications at home for this (14) Macrocytosis: Plan: B12 and folate normal No history of alcohol use Synthetic liver function seems normal Question if has early MDS? Follow as an outpatient (15) Septicemia: Plan: As above with positive blood cultures See ID recommendations above (16) Hypophosphatemia: Plan: -Repeat pending (17) Edema: Plan: - Previously with anasarca but intravascularly volume depleted with hypernatremia. IMproving. -Resume diuretics as tolerated by blood pressure -Improve nutrition and albumin (18) Sacral decubitus ulcer, stage III: Plan: continue wound care, compressive dressing, rotate in bed, out of bed to chair as tolerated Plan: DVT prophylaxis Eliquis as noted, held 06/25 for bleeding Admission and Anticipated Discharge Date Admission Date: June 10, 2021 Emmanuel Hayward is seen at the bedside this morning. She reports she has not had any further episodes of bleeding, no BM yet this morning. She reports she feels fatigued, but slightly less so than yesterday. Appears more alert than on prior exams. Has pain at her sacral ulcer today, otherwise denies acute pain. No nausea/vomiting/diarrhea this morning. Denies chest pain/chest pressure/palpitations/shortness of breath/difficulty breathing. Expresses concern over her overall illness, is surprised but glad that they found the source of bleeding on her EGD and that it was clipped. Discussed case with her previously as well, patient with no other questions or concerns at time of bedside assessment. Review of Systems Review of Systems: Constitutional: See HPI Eyes: Denies vision change ENT: Denies ear pain, sore throat, sinus pain Cardiovascular: Denies Chest pain, chest pressure, palpitations at time of assessment Respiratory: Denies shortness of breath, cough, sputum production, difficulty breathing at time of assessment. Gastrointestinal: See HPI Genitourinary: Denies dysuria, urinary frequency Musculoskeletal: Endorses global fatigue, global muscular weakness. Integumentary:Denies acute rash, lesions, bruising Neurological: Denies headache, numbness, tingling, focal weakness Physical Exam Physical Exam: General: A&Ox3. NAD. Cooperative. Appears more alert and less somnolent today than prior. HEENT: Atraumatic, normocephalic. Visual acuity and hearing grossly intact. Pupils equal and reactive to light. Pulm: Moderate air movement, -wheezes, -rales, -rhonchi. Symmetrical chest rise. No increase work of breathing. No respiratory distress. On 2 L nasal cannula. Cardiac: RRR, -mrg. Radial pulses intact and symmetrical. Abdominal: Nontender, nondistended, soft. BS present. Skin: Posterior sacral ulcer with foam dressing intact, patient endorses pain at this, improved with positional changes. Extremities: Hair Dryer strength and ankle dorsiflexion/plantar flexion intact bilaterally and symmetrical. Right clavicular birthmark present. Radial pulse and PT pulses intact and symmetrical. Moves all extremities equally. Results & Data Results & Data ([facility]) Vital Signs (Past 12 Hours) Vital Signs Temp Pulse Pulse Resp BP Pulse Ox 06/26/21 03:00 76 16 146/73 H 98 06/26/21 00:00 82 06/25/21 23:00 82 26 H 130/70 95 06/25/21 21:00 91 H 100/86 95 06/25/21 19:45 88 27 H 128/58 L 99 06/25/21 19:35 36.4 C L 90 28 H 119/69 97 06/25/21 19:25 91 H 26 H 122/67 95 06/25/21 19:15 95 H 28 H 116/74 92 PG Care Time/CCT Total # of Minutes Spent Total Time Spent with Patient: Total time spent is greater than 50% in coordination of care (as documented) at patient's floor/unit and/or counseling patient: Coding Level of Care Code 20194 Subseq Hosp Care Lvl 3 Diagnoses Sepsis with acute respiratory failure and septic shock A41.9; R65.21; J96.00 Anemia D64.9 Encephalopathy acute G93.40 Atrial fibrillation with RVR I48.91 Hypothyroid E03.9 Hypernatremia E87.0 Acute pancreatitis K85.90 Acute pancreatitis complication: unspecified Pancreatitis type: unspecified pancreatitis type Hiatal hernia K44.9 Aspiration pneumonia J69.0 CRUZ (acute kidney injury) N17.9 Fever R50.9 Hypercholesterolemia E78.00 Hypertension I10 Hypertension type: essential hypertension Macrocytosis D75.89 Septicemia A41.9 Hypophosphatemia E83.39 Edema R60.9 Sacral decubitus ulcer, stage III L89.153 (1) Hypertension Hypertension type: essential hypertension Qualified Code(s): I10 - Essential (primary) hypertension (2) Acute pancreatitis Acute pancreatitis complication: unspecified Pancreatitis type: unspecified pancreatitis type Qualified Code(s): K85.90 - Acute pancreatitis without necrosis or infection, unspecified
[2021-06-26] MEDS: INSULIN ASPART 100 UNITS/ML 3 ML PEN SC SCH ×4 (07:54→20:39)
[2021-06-26] MEDS: METOPROLOL TARTRATE 25 MG TAB PO SCH ×2 (08:14→20:35)
[2021-06-26] MEDS: AMIODARONE 200 MG TAB PO SCH (08:14)
[2021-06-26] MEDS: ASCORBIC ACID 500 MG TAB PO SCH (08:21)
[2021-06-26] MEDS: CHOLECALCIFEROL 1,000 UNITS 25 MCG TAB PO SCH (08:22)
[2021-06-26] MEDS: MULTI VIT W/MINERALS LIQUID 15 ML UDP PO SCH (08:22)
[2021-06-26] MEDS: CYANOCOBALAMIN 500 MCG TABLET (VITAMIN B-12) PO SCH (08:22)
[2021-06-26] MEDS: THIAMINE HCL 100 MG TAB PO SCH (08:22)
[2021-06-26] MEDS: MAGNESIUM OXIDE 400 MG TAB PO SCH (08:22)
[2021-06-26] MEDS: POLYETHYLENE (MIRALAX) 17 GM PACK PO SCH (08:22)
[2021-06-26] MEDS: DOCUSATE SODIUM SYRUP 100 MG/10 ML UDC PO SCH ×2 (08:22→20:32)
[2021-06-26] MEDS: FAMOTIDINE 20 MG in SYRINGE 3 ML IV SCH ×2 (08:27→20:34)
[2021-06-26] MEDS ORDERED: NON-FORMULARY MEDICATION (Krill Oil 500 mg capsule) PO SCH (09:00)
[2021-06-26] MEDS ORDERED: NON-FORMULARY MEDICATION (Cranberry Fruit Concentrate [Azo Cranberry] 250 mg tablet,chewab PO SCH (09:00)
[2021-06-26] MEDS ORDERED: NON-FORMULARY MEDICATION (Coenzyme Q10 200 mg capsule) PO SCH (09:00)
--- NOTE | 2021-06-26 13:09 | Gastroenterology Progress Note ---
Date of Service June 26, 2021 Assessment & Plan Admission and Anticipated Discharge Date Admission Date: June 10, 2021 Supervising Physician Co-Signing Physician Notes 81 yo fm with a history of a prolonged hospitalization, gi called urgently yesterday for drop in hgb and marroon colored stools. S/p EGD on 06/25/21 with findings of a gastric ulcer that was clipped x 5, an additional superficial gastric ulcer also noted, she also had food mixed with hematin in her belly as well. PE - well nourished fm in nad, Abd - soft nt nd Labs as per labs section Can try clear liquid this evening, then npo after midnitie. Continue IV PPI drip for 72 hours post intervention. Carafate 1 gram qid. Suspect she had a stress ulcertion given her prolonged stay and was on eliquis. Would continue to hold eliquis through the weekend. Subjective Patient is sitting up in bed this afternoon- feeling better She reports maybe one stool that was maroonish post endoscopy but no further reports of hematemesis or maroon colored stools. She has not other complaints today- feels better, looks more energized compared to yesterday prior to her scope. Review of Systems Review of Systems: All systems reviewed & are unremarkable except as noted in HPI & below Physical Exam Physical Exam: Well nourished elderly female sitting up in bed in no acute distress Respiratory: Normal, no increased work of breathing Gastrointestinal (Abdomen): Soft nt nd Results & Data ([facility]) Vital Signs (Past 12 Hours) Vital Signs Temp Pulse Pulse Resp BP Pulse Ox 06/26/21 12:00 36.6 C 74 24 108/51 L 98 06/26/21 08:00 36.4 C 70 79 17 137/87 95 06/26/21 03:00 76 16 146/73 H 98 Laboratory Results Hgb slight drop by one gram but this could be requilibration Bun improving Cr improving
[2021-06-26 13:13] LABS: Hematocrit (blood only) 22.2 % (37-47); Hemoglobin 7.3 g/dL (12.0-16.0); Mean Corpuscular Hemoglobin 31.2 pg (25-34); Mean Corpuscular Hgb Conc 32.9 g/dL (32-36); Mean Corpuscular Volume 94.9 fL (80-100); Mean Platelet Volume 8.5 fL (7.4-10.4); Platelet Count 381 K/uL (130-400); RDW Coefficient of Variation 17.2 % (11.5-14.5); RDW Standard Deviation 59.7 fL (36.4-46.3); Red Blood Count 2.34 M/uL (4.2-5.4); White Blood Count 13.98 K/uL (4.8-10.8)
[2021-06-26 13:31] LABS: Basophils # (auto) 0.03 K/uL (0-0.2); Basophils % (auto) 0.2 %; Eosinophils # (auto) 0.12 K/uL (0-0.5); Eosinophils % (auto) 0.9 %; Immature Granulocytes # (auto) 0.06 K/uL (0.00-0.02); Immature Granulocytes % (auto) 0.4 %; Lymphocytes # (auto) 1.37 K/uL (1.2-3.4); Lymphocytes % (auto) 9.8 %; Monocytes # (auto) 1.25 K/uL (0.11-0.59); Monocytes % (auto) 8.9 %; Neutrophils # (auto) 11.15 K/uL (1.4-6.5); Neutrophils % (auto) 79.8 %; RBC Morphology Unremarkable
[2021-06-26] MEDS: OLANZapine ZYDIS 5 MG ORALLY DIS. TAB PO SCH (19:54)
[2021-06-26] MEDS: SUCRALFATE 1 GM/10 ML UDC PO SCH (20:31)
[2021-06-26] MEDS: MELATONIN 3 MG TAB PO SCH (20:34)
[2021-06-26] MEDS ORDERED: SODIUM CHLORIDE 0.9% 1000ML 500 ML IV ONE (22:09)
[2021-06-26 22:55] LABS: Hematocrit (blood only) 16.2 % (37-47); Hemoglobin 5.2 g/dL (12.0-16.0); Mean Corpuscular Hemoglobin 30.8 pg (25-34); Mean Corpuscular Hgb Conc 32.1 g/dL (32-36); Mean Corpuscular Volume 95.9 fL (80-100); Mean Platelet Volume 8.6 fL (7.4-10.4); Platelet Count 348 K/uL (130-400); RDW Coefficient of Variation 16.9 % (11.5-14.5); RDW Standard Deviation 58.2 fL (36.4-46.3); Red Blood Count 1.69 M/uL (4.2-5.4); White Blood Count 15.51 K/uL (4.8-10.8)
[2021-06-26] MEDS ORDERED: SODIUM CHLORIDE 0.9% 250 ML IV PRN (22:56)
[2021-06-26 23:09] LABS: Basophils # (auto) 0.04 K/uL (0-0.2); Basophils % (auto) 0.3 %; Eosinophils # (auto) 0.06 K/uL (0-0.5); Eosinophils % (auto) 0.4 %; Immature Granulocytes # (auto) 0.11 K/uL (0.00-0.02); Immature Granulocytes % (auto) 0.7 %; Lymphocytes # (auto) 1.16 K/uL (1.2-3.4); Lymphocytes % (auto) 7.5 %; Monocytes # (auto) 1.16 K/uL (0.11-0.59); Monocytes % (auto) 7.5 %; Neutrophils # (auto) 12.98 K/uL (1.4-6.5); Neutrophils % (auto) 83.6 %
[2021-06-27] MEDS: AMPICILLIN/SULBACTAM SOD 3,000 MG in 0.9 % SODIUM CHLORIDE 100 ML IV SCH ×4 (01:14→20:19)
[2021-06-27] MEDS: ALBUMIN 25% 100 mL 25 GM/100 ML VIAL IV SCH ×2 (04:21→06:21)
[2021-06-27] MEDS: LEVOTHYROXINE SODIUM 88 MCG TABLET PO SCH (05:42)
[2021-06-27] MEDS: PANTOprazole 40 MG in DEXTROSE 5% 100 ML IV SCH ×4 (06:24→18:12)
--- NOTE | 2021-06-27 08:27 | Communication Note ---
Date of Service: June 27, 2021 This is a Patient of Dr. Snyder but known to me from her earlier hospitalization. 2 days ago, noted to have a drop in Hgb (6.3) but fortionately was HD stable. Her Eliquis and she was empirically placed on IV PPI/pepcid and GI reconsulted. Patient taken for EGD and found to have a large ulcer requiring clipping. Hgb following transfusion and intervention was stable at 8.7. Overnight administration specialist was notified that her BP dropped to 73/42 and her Hgb dropped again to 5.2. She is on her 3Unit PRBC's and currently in HD stable (134/57). She remains on Protonix gtt, pepcid and carafate. I have paged and sent 2 tiger texts to GI-- awaiting return call in addition, I have updated her and attending provider. Patient currently HD stable.
[2021-06-27] MEDS: INSULIN ASPART 100 UNITS/ML 3 ML PEN SC SCH ×4 (08:38→20:52)
[2021-06-27] MEDS: DOCUSATE SODIUM SYRUP 100 MG/10 ML UDC PO SCH (08:39)
[2021-06-27] MEDS: MULTI VIT W/MINERALS LIQUID 15 ML UDP PO SCH (08:39)
[2021-06-27] MEDS: POLYETHYLENE (MIRALAX) 17 GM PACK PO SCH (08:39)
[2021-06-27] MEDS: ASCORBIC ACID 500 MG TAB PO SCH (08:39)
[2021-06-27] MEDS: CYANOCOBALAMIN 500 MCG TABLET (VITAMIN B-12) PO SCH (08:39)
[2021-06-27] MEDS: SUCRALFATE 1 GM/10 ML UDC PO SCH ×4 (08:39→20:46)
[2021-06-27] MEDS: MAGNESIUM OXIDE 400 MG TAB PO SCH (08:39)
[2021-06-27] MEDS: THIAMINE HCL 100 MG TAB PO SCH (08:39)
[2021-06-27] MEDS: CHOLECALCIFEROL 1,000 UNITS 25 MCG TAB PO SCH (08:39)
[2021-06-27] MEDS: FAMOTIDINE 20 MG in SYRINGE 3 ML IV SCH ×2 (08:40→20:24)
[2021-06-27] MEDS: AMIODARONE 200 MG TAB PO SCH (08:41)
[2021-06-27 09:13] LABS: Hematocrit (blood only) 24.4 % (37-47); Hemoglobin 8.2 g/dL (12.0-16.0); Mean Corpuscular Hgb Conc 33.6 g/dL (32-36); Mean Corpuscular Volume 95.3 fL (80-100); Mean Platelet Volume 8.8 fL (7.4-10.4); Nucleated RBC # (auto) 0.07 K/uL (0-0); Nucleated RBC % (auto) 0.4 %; Platelet Count 259 K/uL (130-400); RDW Coefficient of Variation 15.1 % (11.5-14.5); RDW Standard Deviation 51.6 fL (36.4-46.3); Red Blood Count 2.56 M/uL (4.2-5.4); White Blood Count 16.72 K/uL (4.8-10.8)
[2021-06-27 09:16] LABS: BUN Creatinine Ratio 46.8 (10-20); Calcium 7.5 mg/dl (8.5-10.1); Creatinine Clr Calc Pharmacy 57.4 ml/min; Est GFR (Non-African American) 74.2 ml/min; Potassium 3.6 mmol/L (3.5-5.1)
[2021-06-27 09:18] LABS: Basophils # (auto) 0.03 K/uL (0-0.2); Basophils % (auto) 0.2 %; Eosinophils # (auto) 0.03 K/uL (0-0.5); Eosinophils % (auto) 0.2 %; Immature Granulocytes # (auto) 0.08 K/uL (0.00-0.02); Immature Granulocytes % (auto) 0.5 %; Lymphocytes # (auto) 1.67 K/uL (1.2-3.4); Monocytes # (auto) 1.31 K/uL (0.11-0.59); Monocytes % (auto) 7.8 %; Neutrophils % (auto) 81.3 %
--- NOTE | 2021-06-27 10:30 | Hospitalist Progress Note ---
Date of Service June 27, 2021 Assessment & Plan (1) Sepsis with acute respiratory failure and septic shock: Plan: This patient is an 81 y/o WF with a PMHx of Hypothyroidism and recurrent pancreatitis admitted 06/10 with acute pancreatitis (Lipase [id number])-- recurrent issues without obvious cause, suspected idiopathic pancreatitis versus autoimmune-daughter reports that this is patient's 12th episode of pancreatitis in her lifetime Treatment of pancreatitis as below - seen by GI early on in the course of admission and plan was for EUS as OP with Dr. Mclain - Patient did not tolerate clear liquids initially- had increased pain and nausea with multiple bouts of emesis which led to aspiration pneumonitis, hypoxia, as well as rapid atrial fibrillation and profound hypotension requiring emergent DC cardioversion, placement on vasopressors and IV amiodarone, and emergent intubation and was transferred to the ICU on the night of 06/11 -Chest x-ray consistent with aspiration pneumonia and she had bronchoscopy to clear out the lungs by pulmonology- Acute respiratory failure with hypoxia secondary to ARDS plus some volume overload -Was then weaned off all vasopressors and weaned off IV hydrocortisone - Blood cultures x2 positive.1x Enterococcus faecalis and 2x coag negative staph. 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 ID consulted. - Discussed w/ pharmacy. Given 2x pos culture + and uptrending WBC treated with Vanc, no improvement in WBC, TTE- as noted, switched to Unasyn as noted. - Procalcitonin peaked at 60 downtrended. - Pulmonary toilet, bowel regimen, continue to follow and antibiotics as otherwise noted - Repeat UA on 06/20 - for infection, and repeat chest x-ray 06/20 shows persistent pneumonia and atelectasis. KUB shows moderate to severe amount of stool burden but no obstruction. remains afebrile. - Abx Course: Cefepime/Flagyl x5 dayss --> Zosyn x3 days with improvement --> Unasyn. Uptrending wbc and 2x + BC as above, vanco started 06/21 --> Unasyn 06/25 - Surveillance cultures drawn. -Echocardiogram performed earlier this admission without evidence of vegetation on the valves, but this was prior to culture positivity Repeat TTE 06/24/21: Normal LV size with EF greater than 70%, hyperdynamic, moderate left atrial dilation, mild right atrial dilation, sclerotic aortic valve without stenosis, mild to moderate tricuspid regurg, normal estimated right ventricular systolic pressure. Compared to prior study right ventricular systolic pressure has improved. 06/24/21-06/25/21: Initially to downgrade to Ampicillin, Unasyn selected for GI coverage 2/2 bleeding. Will require 14 days of amp coverage minimum from - , consider enteric coverage based on clinical improvement with Unasyn and residual WBC on Vanco - Leukocytosis persists, improving while on Unasyn. Constipation improved, anemia following melana as noted below. ?Biliary sludge -Follow CBC, CMP -Asked nurse to continue to mobilize patient out of bed to chair, encourage use of incentive spirometer -Continue to work on bowel regimen for severe constipation (2) Anemia: Plan: 06/25 morning patient with large bowel movement, followed by acute hemoglobin drop from 10.0-6.9. Repeat hemoglobin 6.3 Patient ordered 2 units packed red blood cells for transfusion. Pt kris appropriately to 8.7 06/25: active bleeding on exam, no initial AM melena, BUN acutely elevated from 23-53. Large melanic BM in PM. Seen by GI, large gastric ulcer nonbleeding with clot present. 5x clips placed. Post-op drop to 7.4, trended 06/27: Patient with acute hemoglobin drop overnight from 7.3-5.2, transfused with 3 units with appropriate rise in posttransfusion hemoglobin. GI reconsulted, pending evaluation. Blood pressure initially hypotensive, 115/51 following transfusion without tachycardia. Morning metoprolol had been held for hypotension. - Continue PPI IV for 72 hours Eliquis held. Discussed clot vs bleeding risk with pt at bedside - NPO + cardiac meds (3) Encephalopathy acute: Plan: Improved, not yet at baseline but improving Patient with anxiety/agitation and self extubated while in ICU Initially on Precedex drip, was minimally interactive and improved 06/16 and 06/17 with Narcan. 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 Suspect acute encephalopathy due to aspiration pneumonia with additional hospital delirium 06/17 CTH: No acute findings EEG without epileptiform activity, mild encephalopathy during admission Continue pneumonia/sepsis and constipation treatment as otherwise noted Passed speech evaluation for minced and moist Tolerating p.o. well Continue at bedtime Zyprexa (4) Atrial fibrillation with RVR: Plan: - Likely sepsis-driven due to catecholamine release -TTE: Hyperdynamic LV, severe LVH, elevated RVSP at 50-60 mmHg -With profound hypotension as above associated with rapid atrial fibrillation requiring urgent DC cardioversion earlier in her hospital stay and then again requiring phenylephrine. Pressors d/merissa -Amiodarone drip converted to p.o. amiodarone 200 mg once daily Eliquis as noted Remains in sinus rhythm, although with frequent ectopy Continue Toprol 75 mg twice daily, hold for hypotension see above under anemia Optimize potassium, magnesium (5) Hypothyroid: Plan: TSH here normal at 1.9 Continue levothyroxine (6) Hypernatremia: Plan: -Improved following D5W infusion and encouragement of free water Normalized, 144 on 06/21 -Encourage p.o. intake of free water - Follow BMP (7) Acute pancreatitis: Plan: With a history of recurrent pancreatitis x12. Has not had an episode in about 2 years Previously had gallbladder sludge but patient had declined to have cholecystectomy several years ago -Gallbladder ultrasound here again with gallbladder sludge - Pt tx with extensive abx as above, and continued to have residual WBC count on Vanco monotherapy which quickly dropped with Unasyn tx. ?GB involvement and need for enteric coverage - She had EUS which showed pancreatic head cyst in 2018 but then did not return for follow-up EUS at [facility] as planned 1 year later. -CT of A/P: pancreatitis without cyst/pseudocyst and ductal dilation - LFT's initially WNL and then only mild elevation in AST after that, total bilirubin normal - MRCP: pancreatitis without cyst/pseudocyst/abscess or ductal dilation - Triglyceride level WNL: 28 -No evidence of hypercalcemia - Patient does not drink ETOH-confirmed with family - Gi: idiopathic versus autoimmune vs related to cyst? Possibly secondary to gallbladder sludge - Also had pancreatic cyst seen on EUS in 2018-this needs repeat EUS for follow- up in 4 weeks after discharge Patient without abdominal pain, tenderness 06/20 and 06/21 - GI saw patient here and plans for outpatient EUS 1 month after discharge (8) Hiatal hernia: Plan: Large hiatal hernia with approximately half the stomach located in the thoracic cavity noted on CT abdomen/pelvis-this puts her at increased risk for aspiration On IV Protonix earlier in admission, converted to lansoprazole 06/25 acute anemia with rise in BUN? Blood loss, patient made n.p.o. and placed back on PPI drip (9) Aspiration pneumonia: Plan: -As above, gradually downtrending oxygen requirements, mentation improving, on 2 L 06/25 -Chest x-ray with left lower lobe collapse and pleural effusion but slightly improved from previous -Pro-Sanjay initially elevated, down trended, repeat pending -Leukocytosis as noted above -With positive blood cultures as above -Initially on cefepime and metronidazole x5 days, then improved more after starting IV Zosyn x3 days, now narrowed down to Unasyn on 06/19-last day of treatment for pneumonia will be 06/23. Patient completed 8 days of anaerobe coverage respiration pneumonia, but requires ongoing treatment as above. Blood cultures positive in multiple sets for staph epidermidis -Monitor chest x-ray and oxygenation-repeat chest x-ray 06/20 similar to slightly improved aeration on the left -Initially had NG tube for enteral feeds-discontinued this on 06/20 -Speech therapy seen and cleared for minced and moist diet, thin liquids with no straws -Continue incentive spirometry and flutter valve as tolerated -Aspiration precautions (10) CRUZ (acute kidney injury): Plan: With creatinine elevated to 1.68 at peak and normalized Likely secondary to ATN from hypotension and septic shock BMP daily, continue to follow (11) Fever: Plan: As above, now resolved (12) Hypercholesterolemia: Plan: Holding home krill oil (13) Hypertension: Plan: With hypotension as above now while in atrial fibrillation which is now resolved, became hypertensive in a sinus rhythm Now on metoprolol for previous rapid atrial fibrillation. Metoprolol increased as above. Not on medications at home for this (14) Macrocytosis: Plan: B12 and folate normal No history of alcohol use Synthetic liver function seems normal Question if has early MDS? Follow as an outpatient (15) Septicemia: Plan: As above with positive blood cultures See ID recommendations above (16) Hypophosphatemia: Plan: -Repeat pending (17) Edema: Plan: - Previously with anasarca but intravascularly volume depleted with hypernatremia. IMproving. -Resume diuretics as tolerated by blood pressure -Improve nutrition and albumin (18) Sacral decubitus ulcer, stage III: Plan: continue wound care, compressive dressing, rotate in bed, out of bed to chair as tolerated Plan: DVT prophylaxis Jose Luis as noted, held 06/25 for bleeding Admission and Anticipated Discharge Date Admission Date: June 10, 2021 Subjective Seen at bedside this morning. Patient with acute hemoglobin drop overnight, report she felt a slight panic attack which has improved. No lightheadedness/dizziness/shortness of breath, chest pain, chest pressure, presyncope at time of assessment. Denies abdominal pain. Has not had a bowel movement yet this morning. Pending GI evaluation. See supplemental communication note from earlier for additional subjective. Review of Systems Review of Systems: All systems reviewed & are unremarkable except as noted in Subjective Physical Exam Physical Exam: General: A&Ox3. NAD. Cooperative. Appears more alert and less somnolent today than prior. HEENT: Atraumatic, normocephalic. Visual acuity and hearing grossly intact. Pupils equal and reactive to light. Pulm: Moderate air movement, -wheezes, -rales, -rhonchi. Symmetrical chest rise. No increase work of breathing. No respiratory distress. On 2 L nasal cannula. Cardiac: RRR, -mrg. Radial pulses intact and symmetrical. Abdominal: Nontender, nondistended, soft. BS present. Skin: Posterior sacral ulcer with foam dressing intact, patient endorses pain at this, improved with positional changes. 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 Right clavicular birthmark present. Radial pulse and PT pulses intact and symmetrical. Moves all extremities equally. Results & Data Results & Data ([facility]) Vital Signs (Past 12 Hours) Vital Signs Temp Pulse Pulse Resp BP BP Pulse Ox 06/27/21 08:00 36.6 C 75 19 115/51 L 95 06/27/21 07:59 36.6 C 76 23 134/57 L 98 06/27/21 07:37 36.6 C 80 25 H 86/59 L 98 06/27/21 07:12 37.3 C 75 24 101/55 L 98 06/27/21 06:52 37.3 C 78 23 117/54 L 97 06/27/21 06:37 83 22 129/68 90 06/27/21 06:22 37.3 C 84 19 129/68 100 06/27/21 06:07 37.3 C 71 23 115/53 L 90 06/27/21 05:52 37.5 C 73 17 118/56 L 100 06/27/21 05:37 37.5 C 72 18 121/57 L 100 06/27/21 05:09 37 C 75 20 116/63 100 06/27/21 04:39 37 C 78 22 106/67 91 06/27/21 04:24 37 C 78 20 84/45 L 99 06/27/21 04:09 37 C 74 18 91/42 L 100 06/27/21 03:54 37 C 74 18 91/42 L 100 06/27/21 03:39 37 C 73 17 92/48 L 100 06/27/21 03:24 37 C 76 18 73/42 L 100 06/27/21 03:22 36.9 C 75 20 90/61 L 100 06/27/21 01:45 36.1 C L 85 18 123/55 L 99 06/27/21 00:45 36 C L 68 21 102/51 L 100 06/27/21 00:15 36 C L 72 21 97/50 L 99 06/27/21 00:00 36 C L 71 19 85/57 L 100 06/26/21 23:37 36 C L 71 28 H 111/54 L 99 06/26/21 23:03 69 19 101/54 L 100 06/26/21 22:51 65 12 109/47 L 100 06/26/21 22:43 62 20 96/38 L 99 PG Care Time/CCT Total # of Minutes Spent Total Time Spent with Patient: Total time spent is greater than 50% in coordination of care (as documented) at patient's floor/unit and/or counseling patient: Coding Level of Care Code 26147 Subseq Hosp Care Lvl 3 Diagnoses Sepsis with acute respiratory failure and septic shock A41.9; R65.21; J96.00 Anemia D64.9 Encephalopathy acute G93.40 Atrial fibrillation with RVR I48.91 Hypothyroid E03.9 Hypernatremia E87.0 Acute pancreatitis K85.90 Acute pancreatitis complication: unspecified Pancreatitis type: unspecified pancreatitis type Hiatal hernia K44.9 Aspiration pneumonia J69.0 CRUZ (acute kidney injury) N17.9 Fever R50.9 Hypercholesterolemia E78.00 Hypertension I10 Hypertension type: essential hypertension Macrocytosis D75.89 Septicemia A41.9 Hypophosphatemia E83.39 Edema R60.9 Sacral decubitus ulcer, stage III L89.153 (1) Acute pancreatitis Acute pancreatitis complication: unspecified Pancreatitis type: unspecified pancreatitis type Qualified Code(s): K85.90 - Acute pancreatitis without necrosis or infection, unspecified (2) Hypertension Hypertension type: essential hypertension Qualified Code(s): I10 - Essential (primary) hypertension
--- NOTE | 2021-06-27 10:51 | Gastroenterology Progress Note ---
Date of Service June 27, 2021 Assessment & Plan Admission and Anticipated Discharge Date Admission Date: June 10, 2021 Supervising Physician Co-Signing Physician Notes Planning for an egd today for further evaluation for drop in hgb given recent egd did have poor visualization. One dose of IV reglan 5 mg will be given prior to the procedure to ensure that she has better visualization - she has been on an iv ppi and npo since her last egd. Patient is agreeable. Subjective Pt seen in the icu She is alert TT by multiple hospitalists this am about hypotensive episode overnite into early am, drop in hgb by 3 point, received 3 units of blood with repeat hgb of 8 this am. When seeing the patients, she states she may have another episode of maroon colored stools yesterday, denies vomiting up any blood. Last EGD done 2 days ago showed a gastric ulcer that was clipped, poor visualization due to mixture of food and blood. She is agreeable to undergoing a repeat egd for further evaluation. Review of Systems Review of Systems: All systems reviewed & are unremarkable except as noted in HPI & below Physical Exam Physical Exam: Thin elderly female in nad Eyes: PERRLA Gastrointestinal (Abdomen): Soft nt nd Neurologic: Oriented Results & Data ([facility]) Vital Signs (Past 12 Hours) Vital Signs Temp Pulse Pulse Resp BP BP Pulse Ox 06/27/21 08:00 36.6 C 75 19 115/51 L 95 06/27/21 07:59 36.6 C 76 23 134/57 L 98 06/27/21 07:37 36.6 C 80 25 H 86/59 L 98 06/27/21 07:12 37.3 C 75 24 101/55 L 98 06/27/21 06:52 37.3 C 78 23 117/54 L 97 06/27/21 06:37 83 22 129/68 90 06/27/21 06:22 37.3 C 84 19 129/68 100 06/27/21 06:07 37.3 C 71 23 115/53 L 90 06/27/21 05:52 37.5 C 73 17 118/56 L 100 06/27/21 05:37 37.5 C 72 18 121/57 L 100 06/27/21 05:09 37 C 75 20 116/63 100 06/27/21 04:39 37 C 78 22 106/67 91 06/27/21 04:24 37 C 78 20 84/45 L 99 06/27/21 04:09 37 C 74 18 91/42 L 100 06/27/21 03:54 37 C 74 18 91/42 L 100 06/27/21 03:39 37 C 73 17 92/48 L 100 06/27/21 03:24 37 C 76 18 73/42 L 100 06/27/21 03:22 36.9 C 75 20 90/61 L 100 06/27/21 01:45 36.1 C L 85 18 123/55 L 99 06/27/21 00:45 36 C L 68 21 102/51 L 100 06/27/21 00:15 36 C L 72 21 97/50 L 99 06/27/21 00:00 36 C L 71 19 85/57 L 100 06/26/21 23:37 36 C L 71 28 H 111/54 L 99 06/26/21 23:03 69 19 101/54 L 100 06/26/21 22:51 65 12 109/47 L 100 Laboratory Results Hgb did drop to 5 and the bun is improving S/p 3 units repeat hgb is 8
[2021-06-27] MEDS ORDERED: METOCLOPRAMIDE HCL INJ 5 MG/ML 2 ML VIAL IV ONE (13:36)
--- NOTE | 2021-06-27 13:48 | Anesthesiology Consultation ---
Date of Service June 27, 2021 Assessment & Plan (1) Encounter for pre-operative examination: Chart Review Chart Review: Acceptable Risk for Surgery and Patient NOT seen in Pre Admission Testing Consults Requested none History Surgery Operation Date: 06/25/21 17:45 Proposed Procedures p Esophagogastroduodenoscopy - Betsey Mckeon MD Operation Date: 06/27/21 14:00 Proposed Procedures p Esophagogastroduodenoscopy - Betsey Mckeon MD Height/Weight Height: 5 ft Weight: 88.9 kg Allergies Allergy/AdvReac Type Severity Reaction Status Date / Time bee venom protein (honey bee) Allergy Severe HAS AN Verified 06/10/21 19:10 EPIPEN FOR REACTIONS latex Allergy Intermediate HIVES Verified 06/10/21 19:10 Iodinated Contrast Media Allergy Mild RASH Verified 06/10/21 19:10 Medications Home Medications Medication Instructions Recorded Confirmed Last Taken cyanocobalamin (vitamin B-12) 1,000 mcg PO QAM tab 02/27/19 06/10/21 06/09/21 1,000 mcg tablet,extended release cyclosporine 0.05 % eye drops in a 1 drp OPB Q12H 03/26/19 06/10/21 06/10/21 08:00 dropperette (Restasis) epinephrine 0.3 mg/0.3 mL 0.3 mg IM DIRECTED PRN 03/26/19 06/10/21 Unknown injection, auto-injector (EpiPen) multivitamin with minerals 1 tab PO QAM 03/26/19 06/10/21 06/09/21 metronidazole 0.75 % topical cream 1 appln TOP DAILY PRN 12/19/19 06/10/21 Unknown ascorbate calcium (vitamin C) 500 500 mg PO DAILY #30 tab 12/30/19 06/10/21 06/09/21 mg tablet cholecalciferol (vitamin D3) 125 125 mcg PO DAILY #30 cap 12/30/19 06/10/21 06/09/21 mcg (5,000 unit) capsule coenzyme Q10 200 mg capsule 200 mg PO DAILY #30 cap 12/30/19 06/10/21 06/09/21 cranberry fruit concentrate 250 mg 250 mg PO DAILY #90 tab 12/30/19 06/10/21 06/09/21 chewable tablet (Azo Cranberry) echinacea 400 mg capsule 400 mg PO DAILY #90 cap 12/30/19 06/10/21 06/09/21 krill oil 500 mg capsule 500 mg PO DAILY #30 cap 12/30/19 06/10/21 06/09/21 lutein 25 mg-zeaxanthin 5 mg 1 cap PO DAILY #30 cap 12/30/19 06/10/21 06/09/21 capsule magnesium 250 mg tablet 325 mg PO DAILY tab 06/09/20 06/10/21 06/09/21 levothyroxine 88 mcg tablet 88 mcg PO QAM #90 tab 09/01/20 06/10/21 06/10/21 (Synthroid) melatonin 5 mg capsule 10 mg PO HS #30 cap 04/08/21 06/10/21 06/09/21 Active Medications Generic Name Dose Route Start Last Admin Trade Name Nashq PRN Reason Stop Dose Admin Amiodarone HCl 200 mg 06/18/21 09:00 06/27/21 08:41 Amiodarone 200 Mg Tab PO 07/18/21 08:59 200 mg QAM SILVA Administration Apixaban 5 mg 06/22/21 21:00 06/25/21 21:18 Apixaban 5 Mg Tablet PO 07/22/21 20:59 Not Given BID SILVA Ascorbic Acid 500 mg 06/21/21 09:00 06/27/21 08:39 Ascorbic Acid 500 Mg Tab PO 07/21/21 08:59 Not Given DAILY SILVA Cyanocobalamin 1,000 mcg 06/26/21 09:00 06/27/21 08:39 Cyanocobalamin 500 Mcg Tablet (Vitamin B-12) PO 07/26/21 08:59 Not Given QAM SILVA Docusate Sodium 100 mg 06/20/21 21:00 06/27/21 08:39 Docusate Sodium Syrup 100 Mg/10 Ml Udc PO 07/20/21 20:59 Not Given BID SILVA Pantoprazole Sodium 40 mg/ 100 mls @ 20 mls/hr 06/25/21 12:30 06/27/21 11:43 Dextrose IV 07/25/21 12:29 Not Given Q5H SILVA 8 MG/HR Famotidine 20 mg/ Syringe 5 mls @ 2.5 mls/min 06/25/21 12:30 06/27/21 08:40 IV 07/25/21 12:29 2.5 mls/min BID SILVA Administration Ampicillin Sodium/Sulbactam 108 mls @ 216 mls/hr 06/25/21 13:30 06/27/21 07:07 Sodium 3,000 mg/ Sodium IV 07/09/21 13:29 Infused Chloride Q6H SILVA Infusion Insulin Aspart 0 units 06/20/21 11:30 06/27/21 11:45 Insulin Aspart 100 Units/Ml 3 Ml Pen SC 07/20/21 11:29 Not Given ACHS SILVA Levothyroxine Sodium 88 mcg 06/19/21 06:30 06/27/21 05:42 Levothyroxine Sodium 88 Mcg Tablet PO 07/19/21 06:29 Not Given DAILYBB SILVA Magnesium Oxide 400 mg 06/26/21 09:00 06/27/21 08:39 Magnesium Oxide 400 Mg Tab PO 07/26/21 08:59 Not Given DAILY SILVA Melatonin 9 mg 06/25/21 21:00 06/26/21 20:34 Melatonin 3 Mg Tab PO 07/25/21 20:59 9 mg HS SILVA Administration Metoprolol Tartrate 2.5 mg 06/17/21 09:34 06/17/21 16:56 Metoprolol Tartrate 1 Mg/Ml Vial IV 07/17/21 09:44 2.5 mg Q6H PRN Administration SBP > 160 Metoprolol Tartrate 75 mg 06/22/21 09:00 06/26/21 20:35 Metoprolol Tartrate 25 Mg Tab PO 07/22/21 08:59 75 mg Q12 SILVA Administration Miscellaneous 1 ea 06/11/21 08:00 06/27/21 08:32 Cyclosporine [Restasis]: Order Awaiting Action N/A 07/11/21 07:59 Not Given QS SILVA Multivitamins/Minerals 15 ml 06/21/21 09:00 06/27/21 08:39 Multi Vit W/Minerals Liquid 15 Ml Udp PO 07/21/21 08:59 Not Given QAM SILVA Olanzapine 2.5 mg 06/19/21 21:00 06/26/21 19:54 Olanzapine Zydis 5 Mg Orally Dis. Tab PO 07/19/21 20:59 2.5 mg HS SILVA Administration Ondansetron HCl 4 mg 06/10/21 23:40 06/15/21 08:15 Ondansetron Inj 2 Mg/Ml 2 Ml Vial IV 07/10/21 23:39 4 mg Q6H PRN Administration Nausea Polyethylene Glycol 17 gm 06/21/21 09:00 06/27/21 08:39 Polyethylene (Miralax) 17 Gm Pack PO 07/21/21 08:59 Not Given DAILY SILVA Sucralfate 1 gm 06/26/21 21:00 06/27/21 12:15 Sucralfate 1 Gm/10 Ml Udc PO 07/26/21 20:59 Not Given QID SILVA Thiamine HCl 100 mg 06/18/21 09:00 06/27/21 08:39 Thiamine Hcl 100 Mg Tab PO 07/18/21 08:59 Not Given QAM SILVA Vitamin D 5,000 units 06/26/21 09:00 06/27/21 08:39 Cholecalciferol 1,000 Units 25 Mcg Tab PO 07/26/21 08:59 Not Given DAILY SILVA NPO Date Last Intake of Fluids: 06/25/21 Time Last Intake of Fluids: 12:30 Date Last Intake of Solids: 06/25/21 Time Last Intake of Solids: 12:30 Past Medical History Medical History Acute pancreatitis ARDS (adult respiratory distress syndrome) Arthritis Hiatal hernia Hypertension Hypothyroid Hypothyroidism Lyme disease Macrocytosis Recurrent pancreatitis Past Family History Family History Mother Emphysema lung Father Myocardial infarction Hypertension Denies family history of Colon cancer Ovarian cancer Prostate cancer Autoimmune disease Pancreatitis Breast cancer Past Surgical History Surgical History H/O cataract extraction S/P bunionectomy right foot X 2 S/P tonsillectomy and adenoidectomy age 14 years Social History Smoking Status: Never smoker Hx Alcohol Use: No Hx Substance Use: No substance use type: does not use Physical Exam Vital Signs Last Vital Signs Temp 36.4 C 06/27/21 11:47 Pulse 76 06/27/21 11:47 Resp 22 06/27/21 11:47 BP 154/65 H 06/27/21 11:47 Pulse Ox 95 06/27/21 11:47 Testing Laboratory Results 06/27/21 08:42 06/27/21 08:42 PT 11.3 Seconds (9.0-12.0) 06/16/21 04:34 INR 1.1 (0.9-1.1) 06/16/21 04:34 APTT 22.3 Seconds (21.0-31.0) 06/10/21 18:20 Hemoglobin A1c 5.9 % (4.5-5.6) H 06/21/21 04:41 Urine Color Dark Yellow 06/20/21 10:35 Urine Appearance Clear (Clear) 06/20/21 10:35 Urine pH 5.0 (4.5-7.5) 06/20/21 10:35 Ur Specific [place] 1.023 (1.000-1.030) 06/20/21 10:35 Urine Protein 1+ (Negative) H 06/20/21 10:35 Urine Glucose (UA) Trace (Negative) H 06/20/21 10:35 Urine Ketones Trace (Negative) H 06/20/21 10:35 Urine Nitrite Negative (Negative) 06/20/21 10:35 Ur Leukocyte Esterase Negative (Negative) 06/20/21 10:35 Urine WBC (Auto) 0 /hpf (0-5) 06/20/21 10:35 Urine RBC (Auto) 5-10 /hpf (0-4) H 06/20/21 10:35 U Hyaline Cast (Auto) 1-5 /lpf (0-5) 06/20/21 10:35 U Epithel Cells (Auto) 5-10 /lpf (0-5) H 06/20/21 10:35 Urine Bacteria (Auto) Negative (Negative) 06/20/21 10:35 Blood Type O Negative 06/25/21 06:10 Antibody Screen NEGATIVE 06/25/21 06:10 06/21/21 16:27 Aerobic Blood Culture - Final Blood No growth in Aerobic bottle after 5 days. Anaerobic Blood Culture - Final 06/21/21 16:27 Aerobic Blood Culture - Final Blood No growth in Aerobic bottle after 5 days. Anaerobic Blood Culture - Final 06/19/21 05:40 Aerobic Blood Culture - Final Blood Coag neg staph not lugdunensis Anaerobic Blood Culture - Final No growth in Anaerobic bottle after 5 days. 06/17/21 11:08 Aerobic Blood Culture - Final Blood Enterococcus faecalis Staphylococcus epidermidis Anaerobic Blood Culture - Final 06/19/21 05:41 Aerobic Blood Culture - Final Blood No growth in Aerobic bottle after 5 days. Anaerobic Blood Culture - Final No growth in Anaerobic bottle after 5 days. 06/17/21 10:43 Aerobic Blood Culture - Final Blood No growth in Aerobic bottle after 5 days. Anaerobic Blood Culture - Final 06/12/21 14:58 Aerobic Blood Culture - Final Blood No growth in Aerobic bottle after 5 days. Anaerobic Blood Culture - Final No growth in Anaerobic bottle after 5 days. 06/12/21 14:50 Aerobic Blood Culture - Final Blood No growth in Aerobic bottle after 5 days. Anaerobic Blood Culture - Final No growth in Anaerobic bottle after 5 days. 06/12/21 Unknown Gram Stain - Final Sputum,Vent Suction Sputum Culture - Final Light normal [place]. 06/27/21 06/27/21 06/27/21 11:45 08:38 08:36 POC Glucose 96 106 H 99 06/27/21 08:34 POC Glucose 64 L* Electrocardiogram Date: 06/16/21 Sinus rhythm (82) with pacs Marked ST abnormality, possible inferior subendocardial injury Abnormal ECG When compared with ECG of 15-JUN-2021 11:23, ST now depressed in Inferior leads ST now depressed in Lateral leads Chest X-Ray Date: 06/20/21 IMPRESSION: 1. Cardiomegaly with mixed interstitial and alveolar opacities redemonstrated. There is mildly improved aeration of the left lung. 2. Small pleural effusions. 3. Hiatal hernia.
[2021-06-27] MEDS ORDERED: PROPOFOL IV EMULSION 10 MG/ML 20 ML VIAL IV ONE (14:41)
[2021-06-27] MEDS ORDERED: LIDOCAINE 2% 2 ML VIAL/AMP(20MG/ML) INFIL ONE (14:41)
[2021-06-27] MEDS ORDERED: fentaNYL citrate 100 MCG/2 ML VIAL ONE (14:41)
--- NOTE | 2021-06-27 14:42 | History & Physical Bridge Note ---
Date of Service June 27, 2021 History & Physical Bridge Note I have examined the patient, reviewed the History & Physical and in the interval since the performance of the History & Physical I have noted the following changes of clinical significance: no changes noted Supervising Physician Co-Signing Physician Notes Planning for EGD shortly.
[2021-06-27] MEDS ORDERED: fentaNYL citrate 100 MCG/2 ML VIAL IV PRN (14:57)
[2021-06-27] MEDS ORDERED: ATROPINE SULFATE 0.1 MG/ML 10ML SYR IV PRN (14:57)
[2021-06-27] MEDS ORDERED: ePHEDrine sulfate 50 MG/ML AMP IV PRN (14:57)
[2021-06-27] MEDS ORDERED: SUCCINYLCHOLINE CHLORIDE 20 MG/ML 10 ML VIAL IV ONE (15:13)
[2021-06-27] MEDS ORDERED: ONDANSETRON INJ 2 MG/ML 2 ML VIAL ONE (15:14)
--- NOTE | 2021-06-27 15:36 | GI REPORT ---
Patient Name: Yesy Vidales Procedure Date: 06/27/2021 2:27 PM Date of : 1940 Admit Type: Inpatient Age: 81 Gender: Female Attending MD: Betsey Mckeon M.d. Procedure: Upper GI endoscopy Providers: Betsey Mckeon M.d. Referring MD: Soham Snyder Md Indications: Hematochezia Medicines: See anesthesia record - Propfol, Lidocain, Succinylcholine Complications: No immediate complications. Estimated Blood Loss: Estimated blood loss: none. Estimated blood loss was minimal. Procedure: Pre-Anesthesia Assessment: - Patient identification and proposed procedure were verified prior to the procedure by the physician, the nurse and the anesthesiologist. The procedure was verified in the pre-procedure area. - Prior to the procedure, a History and Physical was performed, and patient medications, allergies and sensitivities were reviewed. The patient's tolerance of previous anesthesia was reviewed. - The risks and benefits of the procedure and the sedation options and risks were discussed with the patient. All questions were answered and informed consent was obtained. - ASA Grade Assessment: IV - A patient with severe systemic disease that is a constant threat to life. After obtaining informed consent, the endoscope was passed under direct vision. Throughout the procedure, the patient's blood pressure, pulse, and oxygen saturations were monitored continuously. The Scope was introduced through the mouth, and advanced to the second part of duodenum. The upper GI endoscopy was performed with moderate difficulty due to poor endoscopic visualization. Successful completion of the procedure was aided by lavage. Findings: The examined esophagus appeared normal without overt bleeding noted - no varices were noted. Upon entry in the stomach- there was a large amount of hemain with clot. There appeared to be two lumens - per history she is known to have a large hiatal hernia. What is presumed to be her hiatal hernia had immense ulceration that appeared almost like ischemia in addition to hematin, but no overt pulsatile lesion noted or active red blood. Hematin (altered blood/lnvtji-dbfrxb-mqcv material) was found in the remainder of the stomach. The prior ulcer that had been identified in the body of the stomach 2 days ago still had clips remaining on it and was not actively bleeding. The other examined portions of the stomach after lavage appeared ulcerated and with changes suggestive of possible ischemia. The duodenal bulb and second portion of the duodenum appeared normal. Impression: - Normal esophagus. - Presumed ulceration in the hiatal hernia with immense blood clots present that were not easily suctioned. - Hematin (altered blood/lflvep-mwfpxd-jpkz material) in the stomach, prior clips present in the body of the stomach. - Normal duodenal bulb and second portion of the duodenum. Recommendation: - IV PPI. - Consider CT/CTA of the chest/abdomen. Ivonne Rai M.d. 06/27/2021 3:36:11 PM This report has been signed electronically. Note Initiated On: 06/27/2021 2:27 PM Number of Addenda: 0 I attest to the content of the Intraoperative Record and orders documented therein, exceptions below {[id number]}
--- NOTE | 2021-06-27 15:37 | Operative Report ---
PG Post Operative Report Pre & Post Diagnosis Operation Date: 06/25/21 17:45 Pre-Op Diagnosis: Anemia Post-Op Diagnosis: Upper gastrointestinal bleed, gastric ulcer Operation Date: 06/27/21 14:00 Pre-Op Diagnosis: hematachezia Post-Op Diagnosis: partial clot evacuation I identified the patient and participated in the time-out.: Yes Procedure Operation Date: 06/25/21 17:45 Actual Procedures p Esophagogastroduodenoscopy with control of bleeding and evacuation of clots(Not Applicable) - Betsey Mckeon MD Operation Date: 06/27/21 14:00 Actual Procedures p Esophagogastroduodenoscopy(Not Applicable) - Betsey Mckeon MD Surgeon Betsey Mckeon MD Major Account Representative Tg Claudio Estimated Blood Loss 30 Findings Consistent with Post-Op Diagnosis Specimens None Description of Procedure EGD with findings of prior clip placement Continued clots in the stomach that were only partially lavaged. No identifiable actively bleeding site to intervene on endoscopically. I attest to the content of the Intraoperative Record and any orders documented therein. Any exceptions are noted below.
--- NOTE | 2021-06-27 16:07 | Anesthesiology Progress Note ---
Date of Service June 27, 2021 Anesthesia Post Procedure Vital Signs Vital Signs: Temp Pulse Pulse Resp BP BP Pulse Ox 06/27/21 16:00 36.5 C 83 24 150/69 H 93 06/27/21 15:50 87 24 136/72 93 06/27/21 15:40 89 22 126/56 L 97 06/27/21 15:34 36.4 C L 90 24 120/90 97 06/27/21 11:47 36.4 C 76 22 154/65 H 95 06/27/21 10:15 74 06/27/21 08:00 36.6 C 75 19 115/51 L 95 06/27/21 07:59 36.6 C 76 23 134/57 L 98 06/27/21 07:37 36.6 C 80 25 H 86/59 L 98 06/27/21 07:12 37.3 C 75 24 101/55 L 98 06/27/21 06:52 37.3 C 78 23 117/54 L 97 06/27/21 06:37 83 22 129/68 90 06/27/21 06:22 37.3 C 84 19 129/68 100 06/27/21 06:07 37.3 C 71 23 115/53 L 90 06/27/21 05:52 37.5 C 73 17 118/56 L 100 06/27/21 05:37 37.5 C 72 18 121/57 L 100 06/27/21 05:09 37 C 75 20 116/63 100 06/27/21 04:39 37 C 78 22 106/67 91 06/27/21 04:24 37 C 78 20 84/45 L 99 06/27/21 04:09 37 C 74 18 91/42 L 100 06/27/21 03:54 37 C 74 18 91/42 L 100 06/27/21 03:39 37 C 73 17 92/48 L 100 06/27/21 03:24 37 C 76 18 73/42 L 100 06/27/21 03:22 36.9 C 75 20 90/61 L 100 06/27/21 01:45 36.1 C L 85 18 123/55 L 99 06/27/21 00:45 36 C L 68 21 102/51 L 100 06/27/21 00:15 36 C L 72 21 97/50 L 99 06/27/21 00:00 36 C L 71 19 85/57 L 100 06/26/21 23:37 36 C L 71 28 H 111/54 L 99 06/26/21 23:03 69 19 101/54 L 100 06/26/21 22:51 65 12 109/47 L 100 06/26/21 22:43 62 20 96/38 L 99 06/26/21 22:00 69 21 74/39 L 100 06/26/21 19:30 84 28 H 111/67 100 06/26/21 18:09 72 14 117/44 L 100 Pain Intensity Right Lower Abdomen: Pain Intensity: 6 Abdomen: Pain Intensity: 10 Transfer of Care Handoff Completed per policy Notes Mental Status: alert / awake / arousable and participated in evaluation Patient Amnestic to Procedure: Yes Nausea / Vomiting: adequately controlled Pain: adequately controlled Airway Patency, RR, SpO2: stable & adequate BP & HR: stable & adequate Hydration State: stable & adequate Anesthetic Complications: no major complications apparent and Pt Satisfied with anesthetic care
[2021-06-27] MEDS ORDERED: OPTIRAY 320 125ml IV ONE (17:02)
--- NOTE | 2021-06-27 17:20 | CT Scan Report ---
CT angio chest wo/w con CLINICAL HISTORY: ?ischemia/necrosis concern for stomach ulcer perforation and enteric ischemia. TECHNIQUE: Multidetector row helical CT of the chest was performed. Coronal and sagittal reformations were obtained. Automated dose lowering techniques and/or adjustment according to patient size were u tilized for this exam. Comparison: Comparison is made to chest one view 06/20/2021 FINDINGS: Lungs and pleura: Moderate bilateral pleural effusions are seen with underlying atelectasis. There ar e scattered airspace opacities in the bilateral lungs. Heart and pericardium: There is cardiomegaly without evidence of pericardial effusion. Vessels: No evidence of pulmonary embolism. Pulmonary trunk measures 33 mm in diameter. Mediastinum and parker: Unremarkable. Chest wall and lower neck: Unremarkable. Abdomen: For findings below the diaphragm, please refer to CT of the abdomen dated the same. Bones: Degenerative changes in the thoracic spine. IMPRESSION: 1. No evidence of pulmonary embolism. 2. Moderate bilateral pleural effusions with underlying atelectasis and airspace opacities which may represent atelectasis, pneumonia, and/or aspiration. 3. Pulmonary hypertension. ACT 112: Negative or not required by law. Electronically signed by: Patrick Geiger M.D. 06/27/2021 5:19 PM
--- NOTE | 2021-06-27 17:32 | CT Scan Report ---
CT angio abdomen pelvis w con CLINICAL HISTORY: ?enteric ischemia TECHNIQUE: Multidetector row helical CT of the abdomen, pelvis and bilateral lower extremities down t hrough the feet was performed, following intravenous administration of 140 cc of Omnipaque-350. No or al contrast was administered. Coronal and sagittal reformations were obtained. MIP and 3D volume rend ered reconstructions were obtained. Comparison: Comparison is made to CT abdomen and pelvis 06/10/2031 FINDINGS: Lower chest: For findings above the diaphragm, please see CT chest performed same day. Liver: Hepatic steatosis is noted. Gallbladder and biliary tree: No calcified gallstones. Normal caliber wall. No intra- or extrahepatic biliary ductal dilation. Pancreas: Unremarkable, no focal lesions. Spleen: Unremarkable. Adrenals: Unremarkable. Kidneys and ureters: Parapelvic cysts are seen on the right. Bladder: Unremarkable. Reproductive organs: Unremarkable. Bowel: Diverticulosis is seen without evidence of diverticulitis. No evidence of pneumatosis intestin mandie. There is a large hiatal hernia and the stomach is distended. Lymph nodes Retroperitoneal: Subcentimeter lymph nodes are noted. Mesenteric: Unremarkable. Pelvic: Unremarkable. Peritoneum: Normal Abdominal wall: A tiny umbilical helical hernia is seen. There is asymmetric thickening of the left r ectus abdominis with hyperdensity which may represent an intramuscular hematoma. Bones: Degenerative changes in the visualized spine. CT angiogram: The abdominal aortic contours appear intact without evidence of aneurysmal dilatation a nd/or dissection. There is evidence of scattered atherosclerotic calcifications of the abdominal aor ta and its major branches. No evidence of active extravasation. The origins of the celiac axis, superior mesenteric, inferior mesenteric and bilateral renal arteries are patent. IMPRESSION: 1. No pneumatosis or pneumoperitoneum to suggest mesenteric ischemia or perforated ulcer. There is a large hiatal hernia with significant gastric distention which may reflect ileus or bowel obstruction . 2. Likely small intramuscular hematoma of the left rectus abdominis. ACT 112: Negative or not required by law. Electronically signed by: Patrick Geiger M.D. 06/27/2021 5:31 PM
[2021-06-27] MEDS: MELATONIN 3 MG TAB PO SCH (20:46)
[2021-06-27] MEDS: METOPROLOL TARTRATE 25 MG TAB PO SCH (20:46)
[2021-06-27] MEDS ORDERED: diphenhydrAMINE 50 MG/ML VIAL IV STA (20:48)
[2021-06-27] MEDS: OLANZapine ZYDIS 5 MG ORALLY DIS. TAB PO SCH (20:51)
[2021-06-28] MEDS: PANTOprazole 40 MG in DEXTROSE 5% 100 ML IV SCH ×7 (00:27→22:28)
[2021-06-28] MEDS: AMPICILLIN/SULBACTAM SOD 3,000 MG in 0.9 % SODIUM CHLORIDE 100 ML IV SCH ×4 (02:20→19:30)
[2021-06-28 05:30] LABS: Basophils # (auto) 0.02 K/uL (0-0.2); Basophils % (auto) 0.2 %; Eosinophils # (auto) 0.11 K/uL (0-0.5); Eosinophils % (auto) 1.2 %; Hemoglobin 8.5 g/dL (12.0-16.0); Immature Granulocytes # (auto) 0.06 K/uL (0.00-0.02); Immature Granulocytes % (auto) 0.7 %; Lymphocytes # (auto) 1.29 K/uL (1.2-3.4); Lymphocytes % (auto) 14.6 %; Mean Corpuscular Hemoglobin 31.7 pg (25-34); Mean Corpuscular Hgb Conc 32.7 g/dL (32-36); Mean Platelet Volume 8.5 fL (7.4-10.4); Monocytes % (auto) 13.6 %; Neutrophils # (auto) 6.17 K/uL (1.4-6.5); Neutrophils % (auto) 69.7 %; Platelet Count 337 K/uL (130-400); RDW Coefficient of Variation 16.1 % (11.5-14.5); RDW Standard Deviation 55.8 fL (36.4-46.3); Red Blood Count 2.68 M/uL (4.2-5.4); White Blood Count 8.85 K/uL (4.8-10.8)
[2021-06-28] MEDS: LEVOTHYROXINE SODIUM 88 MCG TABLET PO SCH (05:49)
[2021-06-28 05:58] LABS: BUN Creatinine Ratio 38.8 (10-20); Creatinine Clr Calc Pharmacy 69.4 ml/min; Est GFR (African American) 97.3 ml/min
[2021-06-28] MEDS: FAMOTIDINE 20 MG in SYRINGE 3 ML IV SCH ×2 (08:59→20:36)
[2021-06-28] MEDS: METOPROLOL TARTRATE 25 MG TAB PO SCH (08:59)
[2021-06-28] MEDS: THIAMINE HCL 100 MG TAB PO SCH (08:59)
[2021-06-28] MEDS: MAGNESIUM OXIDE 400 MG TAB PO SCH (08:59)
[2021-06-28] MEDS: AMIODARONE 200 MG TAB PO SCH (08:59)
[2021-06-28] MEDS: ASCORBIC ACID 500 MG TAB PO SCH (08:59)
[2021-06-28] MEDS: POLYETHYLENE (MIRALAX) 17 GM PACK PO SCH (09:00)
[2021-06-28] MEDS: MULTI VIT W/MINERALS LIQUID 15 ML UDP PO SCH (09:00)
[2021-06-28] MEDS: CHOLECALCIFEROL 1,000 UNITS 25 MCG TAB PO SCH (09:00)
[2021-06-28] MEDS: SUCRALFATE 1 GM/10 ML UDC PO SCH ×4 (09:00→20:28)
[2021-06-28] MEDS: INSULIN ASPART 100 UNITS/ML 3 ML PEN SC SCH ×4 (09:47→20:37)
[2021-06-28] MEDS: CYANOCOBALAMIN 500 MCG TABLET (VITAMIN B-12) PO SCH (10:04)
--- NOTE | 2021-06-28 10:45 | Progress Note ---
Date of Service June 28, 2021 Assessment & Plan Admission and Anticipated Discharge Date Admission Date: June 10, 2021 Subjective Pt with compaint of malaise, but no specific complaints. Asking for ice chips. Denie any abdominal pain. nurses matteo DING this am. Normotensive, not tachycardic overnight. Abd: soft NT to deep pressure. Labs reviewed -- hgb stable, BUN not increased CTA reviewed - no gastric perf, HH without gastric volvulus at time of CT, CTA without celiac or SMA stenosis A/P: Ischemic gastritis - Etiology unclear -- possible that she is having intermittent gastric volvulus? Defer NGT for now, given deep GEJ tear. If rebleeds, than consider re-scope, stat CXR. NPO x chips/sip, PPI gtt, and abx for now. Results & Data ([facility]) Vital Signs (Past 12 Hours) Vital Signs Temp Pulse Pulse Resp BP Pulse Ox 06/28/21 02:28 36.6 C 70 14 140/65 98 06/28/21 00:00 79
--- NOTE | 2021-06-28 10:59 | Gastroenterology Progress Note ---
Date of Service June 28, 2021 Assessment & Plan (1) Gastric ulcer: Plan: Plan: If further gross GI bleeding or drop in Hb/Hct then will need repeat EGD. Continue NPO with only sips/chips. Continue PPI drip, broad spectrum antibiotics. See Progress note by Dr. Bustos today for further instructions. (2) Hiatal hernia: Admission and Anticipated Discharge Date Admission Date: June 10, 2021 Supervising Physician Co-Signing Physician Notes Attg add - see my separate note. Subjective 81 yr old female with recent pancreatitis (last week), GI reconsulted for anemia on Monday 06/25. EGD 06/25 with deep gastric ulcer. Repeat EGD 06/27 with large hiatal hernia with ulcer, Gastric ulcer, evidence of ischemia. Hb 8.5 today, stable from yesterday - after a total of 5 units of RBCs. CTA chest, abd pelvis w/o evidence of vascular compromise and no gastric perf or volvulus. Review of Systems Review of Systems: ROS: Gen: + weakness, no fevers Eyes: No eye redness, or pain, no recent vision changes Resp: No SOB, no cough Cardio: No palpitations/irregular beats, no chest pain GI: No abdominal pain, no nausea/vomiting : Denies pain on urination Skin: No jaundice, itching or new rashes Ext: no edema Physical Exam Constitutional: well developed and cooperative Eyes: PERRL, conjunctivae normal, anicteric sclerae Cardiovascular: RRR, no murmur, no edema Gastrointestinal (Abdomen): normal bowel sounds, soft, nontender, no hepatosplenomegaly Skin: no rashes, warm and dry normal turgor Neurologic: PERRL, EOMI, accommodation nl, no face palsy, no dysarthria awake; not confused Psychiatric: A+Ox3, euthymic affect Orientation: alert, oriented x 3 and co operative Results & Data ([facility]) Vital Signs (Past 12 Hours) Vital Signs Temp Pulse Pulse Resp BP Pulse Ox 06/28/21 08:00 79 06/28/21 02:28 36.6 C 70 14 140/65 98 06/28/21 00:00 79 Laboratory Results WBC 8.8, Hb 8.5, Hct 26, plts 337, Na 147, K 4.3, BUN 24, Cr 0.62, glucose 108. Diagnostic Findings CTA chest: 1. No evidence of pulmonary embolism. 2. Moderate bilateral pleural effusions with underlying atelectasis and airspace opacities which may represent atelectasis, pneumonia, and/or aspiration. 3. Pulmonary hypertension. CTA Chest/abd/pelvis: 1. No pneumatosis or pneumoperitoneum to suggest mesenteric ischemia or perforated ulcer. There is a large hiatal hernia with significant gastric distention which may reflect ileus or bowel obstruction. 2. Likely small intramuscular hematoma of the left rectus abdominis.
[2021-06-28] MEDS: ACETAMINOPHEN 325 MG TAB PO PRN (11:47)
--- NOTE | 2021-06-28 15:43 | Surgery Consultation ---
Date of Consultation June 28, 2021 Assessment & Plan (1) Gastric ulcer: (2) Anemia: (3) Recurrent pancreatitis: 81 year-old female who was initially admitted to hospital with recurrent pancreatitis and subsequently developed aspiration pneumonia, ARDS requiring intubation, and now acute GI bleed with blood loss anemia and upper endoscopy showing large hiatal hernia with deep bleeding gastric ulcerations as cause of her GI bleed. Repeat endoscopy 06/27/21 showing no active bleeding but retained old blood. CTA of chest/abdomen/and pelvis with no evidence of gastric perforation or ischemia. Hemoglobin: 8.5 today (8.2 yesterday). Abdomen is soft, nondistended, and nontender on exam. Plan: Reviewed CT scan findings as well as upper endoscopy images and findings with Dr. Browne. Given her large hiatal hernia and recent acute pancreatitis, if she were to need surgery for gastric bleed/perforation from gastric ulcer she will need transfer to tertiary center where multidisciplinary team is available including thoracic and general surgeon. Dr. Browne discussed this with patient and her . She states she would prefer [facility] if that is needed. Right now she is stable, hemoglobin is stable, abdominal exam is benign and she is hemodynmically stable. Continue NPO Continue PPI Drip Repeat H&H ordered by GI Monitor H&H Serial abdominal examinations will follow along Dr. Browne has seen and examined pt, agrees with above. History of Present Illness Reason for Consultation: Deep gastric ulcers Requesting Physician: LEYDI Bailey Attending Physician: Antonio Rao History of Present Illness Yesy is a 81 year-old female who was admitted to hospital at end of May for recurrent pancreatitis. She unfortunately aspirated and developed ARDS and required intubation. She then developed acute gi bleeding and had upper end oscopy on 06/25/21 which she was found to have large hiatal hernia with bleeding gastric ulcer which was clipped. She then was taken back for another endoscopy yesterday given drop in hemoglobin and GI bleeding. Old blood was seen however no acute active bleeding was visualized. She had a ct scan of chest and abdomen and pelvis yesterday which showed no evidence of gastric perforation or ischemia however she has large hiatal hernia with distended stomach. Our services consulted today given deep gastric ulcerations and episode of vomiting with old blood products. Yesy states she is having no abdominal pain. States she actually feels better now since she vomited. Allergies Allergy/AdvReac Type Severity Reaction Status Date / Time bee venom protein (honey bee) Allergy Severe HAS AN Verified 06/10/21 19:10 EPIPEN FOR REACTIONS latex Allergy Intermediate HIVES Verified 06/10/21 19:10 Iodinated Contrast Media Allergy Mild RASH Verified 06/10/21 19:10 Home Medications Medication Instructions Recorded Confirmed Type cyanocobalamin (vitamin B-12) 1,000 mcg PO QAM tab 02/27/19 06/10/21 History 1,000 mcg tablet,extended release cyclosporine 0.05 % eye drops in a 1 drp OPB Q12H 03/26/19 06/10/21 History dropperette (Restasis) epinephrine 0.3 mg/0.3 mL 0.3 mg IM DIRECTED PRN 03/26/19 06/10/21 History injection, auto-injector (EpiPen) multivitamin with minerals 1 tab PO QAM 03/26/19 06/10/21 History metronidazole 0.75 % topical cream 1 appln TOP DAILY PRN 12/19/19 06/10/21 History ascorbate calcium (vitamin C) 500 500 mg PO DAILY #30 tab 12/30/19 06/10/21 Rx mg tablet cholecalciferol (vitamin D3) 125 125 mcg PO DAILY #30 cap 12/30/19 06/10/21 Rx mcg (5,000 unit) capsule coenzyme Q10 200 mg capsule 200 mg PO DAILY #30 cap 12/30/19 06/10/21 Rx cranberry fruit concentrate 250 mg 250 mg PO DAILY #90 tab 12/30/19 06/10/21 Rx chewable tablet (Azo Cranberry) echinacea 400 mg capsule 400 mg PO DAILY #90 cap 12/30/19 06/10/21 Rx krill oil 500 mg capsule 500 mg PO DAILY #30 cap 12/30/19 06/10/21 Rx lutein 25 mg-zeaxanthin 5 mg 1 cap PO DAILY #30 cap 12/30/19 06/10/21 Rx capsule magnesium 250 mg tablet 325 mg PO DAILY tab 06/09/20 06/10/21 History levothyroxine 88 mcg tablet 88 mcg PO QAM #90 tab 09/01/20 06/10/21 Rx (Synthroid) melatonin 5 mg capsule 10 mg PO HS #30 cap 04/08/21 06/10/21 Rx Patient History Medical History Acute pancreatitis ARDS (adult respiratory distress syndrome) Arthritis Hiatal hernia Hypertension Hypothyroid Hypothyroidism Lyme disease Macrocytosis Recurrent pancreatitis Surgical History H/O cataract extraction S/P bunionectomy right foot X 2 S/P tonsillectomy and adenoidectomy age 14 years Family History Mother Emphysema lung Father Myocardial infarction Hypertension Denies family history of Colon cancer Ovarian cancer Prostate cancer Autoimmune disease Pancreatitis Breast cancer Social History Smoking Status: Never smoker Second Hand Exposure: No; Hx Alcohol Use: No Hx Substance Use: No Preferred Language: [place] Communication Ability: Impaired [employer] Att[employer] Required: No Beliefs That Will Affect Care: None marital status: Current Living Situation: Spouse Current Living Situation Comment: lives with in [place] 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 Other Information That Helps Us Care for You: No other: 4 kids Feels Safe at Home: Yes Safety Concerns: Feels Safe At This Time Childhood Exposure to Second-Hand Smoke: Yes Dental Care, Regularly: Yes Physical Activity Frequency: Does not Exercise Seatbelt Use: always Sunscreen Use: No Assistive Devices: Oxygen - Continuous and Walker Physical Exam Constitutional: WD/WN, vitals as above no acute distress and not ill appearing Respiratory: normal respiratory effort; no respiratory distress, no labored breathing and no retractions Gastrointestinal (Abdomen): Inspection/Auscultation: abdomen normal to inspection; abdomen not distended Percussion/Palpation: abdomen soft; abdomen nontender, no guarding and abdomen not rigid Skin: no rashes, warm and dry Psychiatric: Orientation: alert and oriented x 3 Results & Data ([facility]) Vital Signs (Past 12 Hours) Vital Signs Pulse Pulse Resp BP Pulse Ox 06/28/21 15:39 75 14 152/84 H 95 06/28/21 12:13 72 16 148/70 H 90 06/28/21 08:00 79 72 14 141/75 H 90 Laboratory Results 06/28/21 06/28/21 06/28/21 Range/Units 15:27 12:32 09:39 WBC (4.8-10.8) K/uL RBC (4.2-5.4) M/uL Hgb (12.0-16.0) g/dL Hct (37-47) % MCV (80-100) fL MCH (25-34) pg MCHC (32-36) g/dL RDW Std Deviation (36.4-46.3) fL RDW Coeff of Estrellita (11.5-14.5) % Plt Count (130-400) K/uL MPV (7.4-10.4) fL Immature Gran % (Auto) % Neut % (Auto) % Lymph % (Auto) % [place] % (Auto) % Eos % (Auto) % Baso % (Auto) % Neut # (Auto) (1.4-6.5) K/uL Lymph # (Auto) (1.2-3.4) K/uL [place] # (Auto) (0.11-0.59) K/uL Eos # (Auto) (0-0.5) K/uL Baso # (Auto) (0-0.2) K/uL Immature Gran # (Auto) (0.00-0.02) K/uL Sodium (136-145) mmol/L Potassium (3.5-5.1) mmol/L Chloride (98-107) mmol/L Carbon Dioxide (21-32) mmol/L Anion Gap (3-11) BUN (7-18) mg/dl Creatinine (0.6-1.2) mg/dl Est Cr Clr Drug Dosing ml/min Est GFR ( Amer) ml/min Est GFR (Non-Af Amer) ml/min BUN/Creatinine Ratio (10-20) Glucose (70-99) mg/dl POC Glucose 102 H 91 90 (70-99) mg/dl Calcium (8.5-10.1) mg/dl 06/28/21 06/28/21 06/28/21 Range/Units 06:16 05:13 05:13 WBC 8.85 (4.8-10.8) K/uL RBC 2.68 L (4.2-5.4) M/uL Hgb 8.5 L (12.0-16.0) g/dL Hct 26.0 L (37-47) % MCV 97.0 (80-100) fL MCH 31.7 (25-34) pg MCHC 32.7 (32-36) g/dL RDW Std Deviation 55.8 H (36.4-46.3) fL RDW Coeff of Estrellita 16.1 H (11.5-14.5) % Plt Count 337 (130-400) K/uL MPV 8.5 (7.4-10.4) fL Immature Gran % (Auto) 0.7 % Neut % (Auto) 69.7 % Lymph % (Auto) 14.6 % [place] % (Auto) 13.6 % Eos % (Auto) 1.2 % Baso % (Auto) 0.2 % Neut # (Auto) 6.17 (1.4-6.5) K/uL Lymph # (Auto) 1.29 (1.2-3.4) K/uL [place] # (Auto) 1.20 H (0.11-0.59) K/uL Eos # (Auto) 0.11 (0-0.5) K/uL Baso # (Auto) 0.02 (0-0.2) K/uL Immature Gran # (Auto) 0.06 H (0.00-0.02) K/uL Sodium 147 H (136-145) mmol/L Potassium 4.3 D (3.5-5.1) mmol/L Chloride 114 H (98-107) mmol/L Carbon Dioxide 30 (21-32) mmol/L Anion Gap 3.0 (3-11) BUN 24 H (7-18) mg/dl Creatinine 0.62 (0.6-1.2) mg/dl Est Cr Clr Drug Dosing 69.4 ml/min Est GFR ( Amer) 97.3 ml/min Est GFR (Non-Af Amer) 84.0 ml/min BUN/Creatinine Ratio 38.8 H (10-20) Glucose 98 (70-99) mg/dl POC Glucose (70-99) mg/dl Calcium 8.0 L (8.5-10.1) mg/dl 06/27/21 06/27/21 Range/Units 20:50 18:06 WBC (4.8-10.8) K/uL RBC (4.2-5.4) M/uL Hgb (12.0-16.0) g/dL Hct (37-47) % MCV (80-100) fL MCH (25-34) pg MCHC (32-36) g/dL RDW Std Deviation (36.4-46.3) fL RDW Coeff of Estrellita (11.5-14.5) % Plt Count (130-400) K/uL MPV (7.4-10.4) fL Immature Gran % (Auto) % Neut % (Auto) % Lymph % (Auto) % [place] % (Auto) % Eos % (Auto) % Baso % (Auto) % Neut # (Auto) (1.4-6.5) K/uL Lymph # (Auto) (1.2-3.4) K/uL [place] # (Auto) (0.11-0.59) K/uL Eos # (Auto) (0-0.5) K/uL Baso # (Auto) (0-0.2) K/uL Immature Gran # (Auto) (0.00-0.02) K/uL Sodium (136-145) mmol/L Potassium (3.5-5.1) mmol/L Chloride (98-107) mmol/L Carbon Dioxide (21-32) mmol/L Anion Gap (3-11) BUN (7-18) mg/dl Creatinine (0.6-1.2) mg/dl Est Cr Clr Drug Dosing ml/min Est GFR ( Amer) ml/min Est GFR (Non-Af Amer) ml/min BUN/Creatinine Ratio (10-20) Glucose (70-99) mg/dl POC Glucose 108 H 108 H (70-99) mg/dl Calcium (8.5-10.1) mg/dl Diagnostic Findings CT angio abdomen pelvis w con CLINICAL HISTORY: ?enteric ischemia TECHNIQUE: Multidetector row helical CT of the abdomen, pelvis and bilateral lower extremities down through the feet was performed, following intravenous administration of 140 cc of Omnipaque-350. No oral contrast was administered. Coronal and sagittal reformations were obtained. MIP and 3D volume rendered reconstructions were obtained. Comparison: Comparison is made to CT abdomen and pelvis 06/10/2031 FINDINGS: Lower chest: For findings above the diaphragm, please see CT chest performed same day. Liver: Hepatic steatosis is noted. Gallbladder and biliary tree: No calcified gallstones. Normal caliber wall. No intra- or extrahepatic biliary ductal dilation. Pancreas: Unremarkable, no focal lesions. Spleen: Unremarkable. Adrenals: Unremarkable. Kidneys and ureters: Parapelvic cysts are seen on the right. Bladder: Unremarkable. Reproductive organs: Unremarkable. Bowel: Diverticulosis is seen without evidence of diverticulitis. No evidence of pneumatosis intestinalis. There is a large hiatal hernia and the stomach is distended. Lymph nodes Retroperitoneal: Subcentimeter lymph nodes are noted. Mesenteric: Unremarkable. Pelvic: Unremarkable. Peritoneum: Normal Abdominal wall: A tiny umbilical helical hernia is seen. There is asymmetric t hickening of the left rectus abdominis with hyperdensity which may represent an intramuscular hematoma. Bones: Degenerative changes in the visualized spine. CT angiogram: The abdominal aortic contours appear intact without evidence of aneurysmal dilatation and/or dissection. There is evidence of scattered atherosclerotic calcifications of the abdominal aorta and its major branches. No evidence of active extravasation. The origins of the celiac axis, superior mesenteric, inferior mesenteric and bilateral renal arteries are patent. IMPRESSION: 1. No pneumatosis or pneumoperitoneum to suggest mesenteric ischemia or perforated ulcer. There is a large hiatal hernia with significant gastric distention which may reflect ileus or bowel obstruction. 2. Likely small intramuscular hematoma of the left rectus abdominis. CT angio chest wo/w con CLINICAL HISTORY: ?ischemia/necrosis concern for stomach ulcer perforation and enteric ischemia. TECHNIQUE: Multidetector row helical CT of the chest was performed. Coronal and sagittal reformations were obtained. Automated dose lowering techniques and/or adjustment according to patient size were utilized for this exam. Comparison: Comparison is made to chest one view 06/20/2021 FINDINGS: Lungs and pleura: Moderate bilateral pleural effusions are seen with underlying atelectasis. There are scattered airspace opacities in the bilateral lungs. Heart and pericardium: There is cardiomegaly without evidence of pericardial effusion. Vessels: No evidence of pulmonary embolism. Pulmonary trunk measures 33 mm in diameter. Mediastinum and parker: Unremarkable. Chest wall and lower neck: Unremarkable. Abdomen: For findings below the diaphragm, please refer to CT of the abdomen dated the same. Bones: Degenerative changes in the thoracic spine. IMPRESSION: 1. No evidence of pulmonary embolism. 2. Moderate bilateral pleural effusions with underlying atelectasis and airspace opacities which may represent atelectasis, pneumonia, and/or aspiration. 3. Pulmonary hypertension.
[2021-06-28 16:38] LABS: Hematocrit (blood only) 27.3 % (37-47); Hemoglobin 9.1 g/dL (12.0-16.0)
--- NOTE | 2021-06-28 19:33 | Critical Care Progress Note ---
Date of Service June 28, 2021 Assessment & Plan (1) UGIB (upper gastrointestinal bleed): Plan: Reason Critically Ill: 81-year-old female with complex hospital course currently with recurrent upper GI bleeding requiring close hemodynamic monitoring, possible need for transfusion, and possible transfer to tertiary care facility. NEURO - * CAM ICU: Negative CARDIAC/VASCULAR - * A. Fib w/ RVR: * Unfortunately, patient has been n.p.o. and without p.o. meds secondary to gastritis. * Patient will likely require as needed IV push doses of medications. * Continue treating hypertension as well. * Monitor on telemetry. RESPIRATORY - * Saturating well on 3 L nasal cannula. GI/NUTRITION - * Erosive gastritis: * Status post EGD x3 with clipping. * Remains on Protonix. * Per GI, if she is to bleed again, she should be sent to tertiary care for complicated intra-abdominal anatomy. * Will defer to their service for ongoing care. RENAL/LYTES - * No significant electrolyte derangements. - * Cain in place - Strict I&Os. ENDO - * No history of diabetes. Continue with home dosing of levothyroxine. * BSGs per unit protocol. ISS --> gtt per unit policy. HEME - * Acute blood loss anemia in the setting of GI bleed. * Has received a total of 5 units PRBCs to this point. * Transfuse as needed. * If further transfusions necessary, transfer to tertiary care per general surgery/GI recommendations ID - * No concerning infectious contribution at this time LINES/IV ACCESS - * PIVs x3 DVT PROPHYLAXIS - * Hold on chemoprophylaxis in the setting of upper GI bleeding. * SCDs I have personally spent 32 minutes of critical care time in the direct management of this patient. This is a life/limb threatening event. This includes time spent evaluating patient, direct bedside care, chart review, placing orders, interpretation of diagnostic studies, discussion with consultants, patient, and family members, as well as other required patient management activities. This time is exclusive of all separately billable procedures, and teaching time and separate from and in addition to any other critical care service time. Thank you for allowing us to participate in the care of this patient. Please refer to my attending physician's documentation for any further recommendations. (2) Gastritis: Admission and Anticipated Discharge Date Admission Date: June 10, 2021 Subjective Patient is an 81-year-old female who was initially admitted to this institution on 06/10 with pancreatitis. She unfortunately took a dramatic turn and went into rapid A. fib requiring cardioversion as well as chemical cardioversion, intubation, pressure support, etc. on 06/12. She self extubated early in her course and did well other than significant delirium which did eventually clear. She had improved and was subsequently downgraded from ICU status. Unfortunately, she developed upper GI bleeding and has subsequently undergone 2 separate EGDs which demonstrated erosive esophagitis. During first intervention, the patient required clipping of the stomach x5. She has thankfully remained hemodynamically stable over the last several hours, however there is concern given the patient's hiatal hernia and complex abdominal anatomy that if she were to have return bleeding, it certainly could be catastrophic and require advanced surgical intervention not available at this institution. Currently, recommendation is for close monitoring and if return of GI bleeding, transfer to tertiary care center. ICU was consulted to continue to monitor and manage patient during unstable time. Upon evaluation in the ICU, the patient had just awoken to have labs drawn. She is awake, alert, and oriented. She states that this is the best that she has felt throughout her hospitalization. She denies any complaints of pain at this time. She reports no nausea or vomiting. Otherwise, she offers no complaints. Review of Systems Review of Systems: A complete 10 point review of systems was reviewed with the patient with pertinent positives and negatives as per history of present illness. All else were negative. Physical Exam Physical Exam: VITAL SIGNS - Vital signs and nursing notes were reviewed. GENERAL - 81-year-old female appearing her stated age who is in no acute distress. Communicates well with provider and answers questions appropriately. HEAD - NC/AT. EYES - PERRL with EOMI bilaterally. Sclera anicteric. NECK - Neck with FROM. Supple to palpation. No nuchal rigidity. LUNGS - Chest wall symmetric without accessory muscle use, intercostals retractions, or central cyanosis. Normal vesicular breath sounds CTA B/L. No wheezes, rales, or rhonchi appreciated. CARDIAC - RRR with S1/S2. No murmur, rubs, or gallops appreciated. ABDOMEN - Abdominal contour obese without pulsations or visible masses. BS normoactive all four quadrants. No tenderness to palpation appreciated throughout. No guarding. No Rebound Tenderness. No palpable masses, hepatosplenomegaly, or ascites noted. EXTREMITIES - No clubbing or peripheral cyanosis. Moderate pretibial edema present. +3/5 radial and dorsalis pedis pulses palpated throughout. +4/5 strength noted in UE/LE bilaterally. NEUROLOGIC - Cranial nerves II through XII grossly intact. PSYCH - A&Ox3 and cooperates fully with examiner. Pt is very pleasant and interacts well with examiner. Results & Data Results & Data ([facility]) Vital Signs (Past 12 Hours) Vital Signs Pulse Pulse Resp BP Pulse Ox 06/28/21 15:39 75 14 152/84 H 95 06/28/21 12:13 72 16 148/70 H 90 06/28/21 08:00 79 72 14 141/75 H 90 Coding Level of Care Code Critical Care 1st 30-74 mins Diagnoses Gastritis K29.70 UGIB (upper gastrointestinal bleed) K92.2 Time Spent (min) 32
[2021-06-28] MEDS: MELATONIN 3 MG TAB PO SCH (19:45)
[2021-06-28] MEDS ORDERED: METOPROLOL TARTRATE 1 MG/ML VIAL IV STA (19:55)
[2021-06-28] MEDS: OLANZapine ZYDIS 5 MG ORALLY DIS. TAB PO SCH (20:28)
[2021-06-28] MEDS ORDERED: METOPROLOL TARTRATE 1 MG/ML VIAL IV PRN (20:34)
--- NOTE | 2021-06-28 22:13 | Hospitalist Progress Note ---
Date of Service June 28, 2021 Assessment & Plan (1) Sepsis with acute respiratory failure and septic shock: Plan: This patient is an 81 y/o WF with a PMHx of Hypothyroidism and recurrent pancreatitis admitted 06/10 with acute pancreatitis (Lipase [id number])-- recurrent issues without obvious cause, suspected idiopathic pancreatitis versus autoimmune-daughter reports that this is patient's 12th episode of pancreatitis in her lifetime Treatment of pancreatitis as below - seen by GI early on in the course of admission and plan was for EUS as OP with Dr. Mclain - Patient did not tolerate clear liquids initially- had increased pain and nausea with multiple bouts of emesis which led to aspiration pneumonitis, hypoxia, as well as rapid atrial fibrillation and profound hypotension requiring emergent DC cardioversion, placement on vasopressors and IV amiodarone, and emergent intubation and was transferred to the ICU on the night of 06/11 -Chest x-ray consistent with aspiration pneumonia and she had bronchoscopy to clear out the lungs by pulmonology- Acute respiratory failure with hypoxia secondary to ARDS plus some volume overload -Was then weaned off all vasopressors and weaned off IV hydrocortisone - Blood cultures x2 positive.1x Enterococcus faecalis and 2x coag negative staph. Sensitivities different between [employer] MA[employer]TE[employer]ICIAN/S epi. ID consulted. - Discussed w/ pharmacy. Given 2x pos culture + and uptrending WBC treated with Vanc, no improvement in WBC, TTE- as noted, switched to Unasyn as noted. - Procalcitonin peaked at 60 downtrended. - Pulmonary toilet, bowel regimen, continue to follow and antibiotics as otherwise noted - Repeat UA on 06/20 - for infection, and repeat chest x-ray 06/20 shows persistent pneumonia and atelectasis. KUB shows moderate to severe amount of stool burden but no obstruction. remains afebrile. - Abx Course: Cefepime/Flagyl x5 dayss --> Zosyn x3 days with improvement --> Unasyn. Uptrending wbc and 2x + BC as above, vanco started 06/21 --> Unasyn 06/25 - Surveillance cultures drawn. -Echocardiogram performed earlier this admission without evidence of vegetation on the valves, but this was prior to culture positivity Repeat TTE 06/24/21: Normal LV size with EF greater than 70%, hyperdynamic, moderate left atrial dilation, mild right atrial dilation, sclerotic aortic valve without stenosis, mild to moderate tricuspid regurg, normal estimated right ventricular systolic pressure. Compared to prior study right ventricular systolic pressure has improved. 06/24/21-06/25/21: Initially to downgrade to Ampicillin, Unasyn selected for GI coverage 2/2 bleeding. Will require 14 days of amp coverage minimum from - , consider enteric coverage based on clinical improvement with Unasyn and residual WBC on Vanco - Leukocytosis persists, improving while on Unasyn. Constipation improved, anemia following melana as noted below. ?Biliary sludge -Follow CBC, CMP -Asked nurse to continue to mobilize patient out of bed to chair, encourage use of incentive spirometer -Continue to work on bowel regimen for severe constipation On 06/28, d/w GI, partient will be transferred to ICU. will monitor for GI bleed. If this continues patient may need to be transferred to tertiary center for surgery/IR. (2) Anemia: Plan: 06/25 morning patient with large bowel movement, followed by acute hemoglobin drop from 10.0-6.9. Repeat hemoglobin 6.3 Patient ordered 2 units packed red blood cells for transfusion. Pt kris appropriately to 8.7 06/25: active bleeding on exam, no initial AM melena, BUN acutely elevated from 23-53. Large melanic BM in PM. Seen by GI, large gastric ulcer nonbleeding with clot present. 5x clips placed. Post-op drop to 7.4, trended 06/27: Patient with acute hemoglobin drop overnight from 7.3-5.2, transfused with 3 units with appropriate rise in posttransfusion hemoglobin. GI reconsulted, pending evaluation. Blood pressure initially hypotensive, 115/51 following transfusion without tachycardia. Morning metoprolol had been held for hypotension. - Continue PPI IV for 72 hours Eliquis held. Discussed clot vs bleeding risk with pt at bedside - Patient will be on Strict NPO on 06/28 (3) Encephalopathy acute: Plan: Improved, not yet at baseline but improving Patient with anxiety/agitation and self extubated while in ICU Initially on Precedex drip, was minimally interactive and improved 06/16 and 06/17 with Narcan. 06/18 did well, 06/19 required IV Haldol due to structural technician attempts to get out of bed repeatedly with difficult redirecting which improved during daytime, and 06 20 did well through the night with an evening dose of Zyprexa. Suspect acute encephalopathy due to aspiration pneumonia with additional hospital delirium 06/17 CTH: No acute findings EEG without epileptiform activity, mild encephalopathy during admission Continue pneumonia/sepsis and constipation treatment as otherwise noted Passed speech evaluation for minced and moist Tolerating p.o. well Continue at bedtime Zyprexa (4) Atrial fibrillation with RVR: Plan: - Likely sepsis-driven due to catecholamine release -TTE: Hyperdynamic LV, severe LVH, elevated RVSP at 50-60 mmHg -With profound hypotension as above associated with rapid atrial fibrillation requiring urgent DC cardioversion earlier in her hospital stay and then again requiring phenylephrine. Pressors d/merissa -Amiodarone drip converted to p.o. amiodarone 200 mg once daily Eliquis as noted Remains in sinus rhythm, although with frequent ectopy Continue Toprol 75 mg twice daily, hold for hypotension see above under anemia Optimize potassium, magnesium (5) Hypothyroid: Plan: TSH here normal at 1.9 Continue levothyroxine (6) Hypernatremia: Plan: -Improved following D5W infusion and encouragement of free water Normalized, 144 on 06/21 -Encourage p.o. intake of free water - Follow BMP (7) Acute pancreatitis: Plan: With a history of recurrent pancreatitis x12. Has not had an episode in about 2 years Previously had gallbladder sludge but patient had declined to have cholecystectomy several years ago -Gallbladder ultrasound here again with gallbladder sludge - Pt tx with extensive abx as above, and continued to have residual WBC count on Vanco monotherapy which quickly dropped with Unasyn tx. ?GB involvement and need for enteric coverage - She had EUS which showed pancreatic head cyst in 2018 but then did not return for follow-up EUS at [place] as planned 1 year later. -CT of A/P: pancreatitis without cyst/pseudocyst and ductal dilation - LFT's initially WNL and then only mild elevation in AST after that, total bilirubin normal - MRCP: pancreatitis without cyst/pseudocyst/abscess or ductal dilation - Triglyceride level WNL: 28 -No evidence of hypercalcemia - Patient does not drink ETOH-confirmed with family - Gi: idiopathic versus autoimmune vs related to cyst? Possibly secondary to gallbladder sludge - Also had pancreatic cyst seen on EUS in 2018-this needs repeat EUS for follow- up in 4 weeks after discharge Patient without abdominal pain, tenderness 06/20 and 06/21 - GI saw patient here and plans for outpatient EUS 1 month after discharge (8) Hiatal hernia: Plan: Large hiatal hernia with approximately half the stomach located in the thoracic cavity noted on CT abdomen/pelvis-this puts her at increased risk for aspiration On IV Protonix earlier in admission, converted to lansoprazole 06/25 acute anemia with rise in BUN? Blood loss, patient made n.p.o. and placed back on PPI drip (9) Aspiration pneumonia: Plan: -As above, gradually downtrending oxygen requirements, mentation improving, on 2 L 06/25 -Chest x-ray with left lower lobe collapse and pleural effusion but slightly improved from previous -Pro-Sanjay initially elevated, down trended, repeat pending -Leukocytosis as noted above -With positive blood cultures as above -Initially on cefepime and metronidazole x5 days, then improved more after starting IV Zosyn x3 days, now narrowed down to Unasyn on 06/19-last day of treatment for pneumonia will be 06/23. Patient completed 8 days of anaerobe coverage respiration pneumonia, but requires ongoing treatment as above. Blood cultures positive in multiple sets for staph epidermidis -Monitor chest x-ray and oxygenation-repeat chest x-ray 06/20 similar to slightly improved aeration on the left -Initially had NG tube for enteral feeds-discontinued this on 06/20 -Speech therapy seen and cleared for minced and moist diet, thin liquids with no straws -Continue incentive spirometry and flutter valve as tolerated -Aspiration precautions (10) CRUZ (acute kidney injury): Plan: With creatinine elevated to 1.68 at peak and normalized Likely secondary to ATN from hypotension and septic shock BMP daily, continue to follow (11) Fever: Plan: As above, now resolved (12) Hypercholesterolemia: Plan: Holding home krill oil (13) Hypertension: Plan: With hypotension as above now while in atrial fibrillation which is now resolved, became hypertensive in a sinus rhythm Now on metoprolol for previous rapid atrial fibrillation. Metoprolol increased as above. Not on medications at home for this (14) Macrocytosis: Plan: B12 and folate normal No history of alcohol use Synthetic liver function seems normal Question if has early MDS? Follow as an outpatient (15) Septicemia: Plan: As above with positive blood cultures See ID recommendations above (16) Hypophosphatemia: Plan: -Repeat pending (17) Edema: Plan: - Previously with anasarca but intravascularly volume depleted with hypernatremia. IMproving. -Resume diuretics as tolerated by blood pressure -Improve nutrition and albumin (18) Sacral decubitus ulcer, stage III: Plan: continue wound care, compressive dressing, rotate in bed, out of bed to chair as tolerated Plan: DVT prophylaxis Eliquis as noted, held 06/25 for bleeding Admission and Anticipated Discharge Date Admission Date: June 10, 2021 Subjective Patient had a moderate amount of dark brown watery stool. Had discussion with GI specialist who wants patient to be transferred to ICU for monitoring. Review of Systems Review of Systems: All systems reviewed & are unremarkable except as noted in HPI & below Physical Exam Physical Exam: General: A&Ox3. NAD. Cooperative. HEENT: Atraumatic, normocephalic. Visual acuity and hearing grossly intact. Pupils equal and reactive to light. Pulm: Moderate air movement, -wheezes, -rales, -rhonchi. Symmetrical chest rise. No increase work of breathing. No respiratory distress. On 2 L nasal cannula. Cardiac: RRR, -mrg. Radial pulses intact and symmetrical. Abdominal: Nontender, nondistended, soft. BS present. Skin: Posterior sacral ulcer with foam dressing intact, patient endorses pain at this, improved with positional changes. Extremities: Right clavicular birthmark present. Radial pulse and PT pulses intact and symmetrical. Moves all extremities equally. Results & Data Results & Data ([facility]) Vital Signs (Past 12 Hours) Vital Signs Pulse Pulse Resp BP BP Pulse Ox 06/28/21 20:37 76 176/70 H 06/28/21 15:39 75 14 152/84 H 95 06/28/21 12:13 72 16 148/70 H 90 PG Care Time/CCT Total # of Minutes Spent Total Time Spent with Patient: Total time spent is greater than 50% in coordination of care (as documented) at patient's floor/unit and/or counseling patient: Coding Level of Care Code 31983 Subseq Hosp Care Lvl 2 Diagnoses Sepsis with acute respiratory failure and septic shock A41.9; R65.21; J96.00 Anemia D64.9 Encephalopathy acute G93.40 Atrial fibrillation with RVR I48.91 Hypothyroid E03.9 Hypernatremia E87.0 Acute pancreatitis K85.90 Acute pancreatitis complication: unspecified Pancreatitis type: unspecified pancreatitis type Hiatal hernia K44.9 Aspiration pneumonia J69.0 CRUZ (acute kidney injury) N17.9 Fever R50.9 Hypercholesterolemia E78.00 Hypertension I10 Hypertension type: essential hypertension Macrocytosis D75.89 Septicemia A41.9 Hypophosphatemia E83.39 Edema R60.9 Sacral decubitus ulcer, stage III L89.153 Time Spent (min) 25 (1) Acute pancreatitis Acute pancreatitis complication: unspecified Pancreatitis type: unspecified pancreatitis type Qualified Code(s): K85.90 - Acute pancreatitis without necrosis or infection, unspecified (2) Hypertension Hypertension type: essential hypertension Qualified Code(s): I10 - Essential (primary) hypertension
[2021-06-28 22:47] LABS: Hematocrit (blood only) 24.7 % (37-47); Hemoglobin 8.5 g/dL (12.0-16.0)
[2021-06-29] MEDS: AMPICILLIN/SULBACTAM SOD 3,000 MG in 0.9 % SODIUM CHLORIDE 100 ML IV SCH ×4 (01:25→20:30)
[2021-06-29] MEDS: LEVOTHYROXINE SODIUM 88 MCG TABLET PO SCH (01:25)
[2021-06-29] MEDS: PANTOprazole 40 MG in DEXTROSE 5% 100 ML IV SCH ×4 (04:22→20:10)
[2021-06-29 05:13] LABS: Basophils # (auto) 0.01 K/uL (0-0.2); Basophils % (auto) 0.1 %; Eosinophils # (auto) 0.09 K/uL (0-0.5); Eosinophils % (auto) 1.1 %; Hematocrit (blood only) 26.1 % (37-47); Hemoglobin 8.5 g/dL (12.0-16.0); Immature Granulocytes # (auto) 0.03 K/uL (0.00-0.02); Immature Granulocytes % (auto) 0.4 %; Lymphocytes # (auto) 1.09 K/uL (1.2-3.4); Lymphocytes % (auto) 13.7 %; Mean Corpuscular Hemoglobin 31.7 pg (25-34); Mean Corpuscular Hgb Conc 32.6 g/dL (32-36); Mean Corpuscular Volume 97.4 fL (80-100); Monocytes # (auto) 1.25 K/uL (0.11-0.59); Monocytes % (auto) 15.7 %; Neutrophils # (auto) 5.51 K/uL (1.4-6.5); Platelet Count 336 K/uL (130-400); RDW Coefficient of Variation 16.5 % (11.5-14.5); RDW Standard Deviation 54.3 fL (36.4-46.3); Red Blood Count 2.68 M/uL (4.2-5.4); White Blood Count 7.98 K/uL (4.8-10.8)
[2021-06-29 05:58] LABS: BUN Creatinine Ratio 38.4 (10-20); Calcium 8.2 mg/dl (8.5-10.1); Creatinine Clr Calc Pharmacy 90.5 ml/min; Est GFR (African American) 105.9 ml/min; Est GFR (Non-African American) 91.4 ml/min; Magnesium 1.9 mg/dl (1.8-2.4); Phosphorus 2.1 mg/dl (2.5-4.9); Potassium 3.1 mmol/L (3.5-5.1)
[2021-06-29] MEDS ORDERED: POTASSIUM PHOS 3 MMOL/1 ML INFUSION IV STA (06:07)
[2021-06-29] MEDS ORDERED: POTASSIUM PHOSPHATE 15 MMOL in SODIUM CHLORIDE 0.9% 250 ML IV ONE ×2 (06:15→12:00)
[2021-06-29] MEDS: POTASSIUM CHLORIDE / WTR 10 MEQ/100 ML PLCT IV SCH ×3 (06:18→08:14)
[2021-06-29] MEDS ORDERED: MAGNESIUM SULFATE / D5W 1 GM/100 ML BAG IV ONE (07:30)
[2021-06-29] MEDS ORDERED: Nursing to Pharmacy Communication SCH (07:45)
[2021-06-29] MEDS: FAMOTIDINE 20 MG in SYRINGE 3 ML IV SCH (08:15)
[2021-06-29] MEDS: FUROSEMIDE 40 MG/4 ML VIAL IV SCH (08:36)
--- NOTE | 2021-06-29 08:56 | Critical Care Progress Note ---
Date of Service June 29, 2021 Assessment & Plan (1) UGIB (upper gastrointestinal bleed): Plan: Reason Critically Ill: 81-year-old female with complex hospital course currently with recurrent upper GI bleeding requiring close hemodynamic monitoring in the ICU, possible need for transfusion, and possible transfer to tertiary care facility. NEURO - * CAM ICU: Negative CARDIAC/VASCULAR - * A. Fib w/ RVR, rate controlled: * Unfortunately, patient has been n.p.o. and without p.o. meds secondary to gastritis. * Gave Lopressor 5mg IV x1 this AM; will get further PRN 2.5mg IV pushes for HR >120 * Continue treating hypertension as well (PRN Lopressor) * Monitor on telemetry. RESPIRATORY - * Hypoxia; intermittent need of supplemental O2, likely due to volume overload in setting of prolonged/intermittent fluid resuscitation and pRBCs (patient is at least net +10L this hospitalization): * wean supplemental O2 as tolerated, goal SpO2>90% * started Lasix 40mg IV daily GI/NUTRITION - * Erosive gastritis: * Status post EGD x3 with clipping. * Remains on Protonix gtt and Carafate * discontinued Pepcid this AM (no indication for PPI + H2) * Per GI - no urgent intervention at this time, although if she is to bleed again, she should be sent to tertiary care for complicated intra-abdominal anatomy. * Patient will be scheduled for upper GI series today, with plan to advance to clear diet if no signs of active bleeding RENAL/LYTES - * Hypokalemia/Hypomagnesemia/Hypophosphatemia, in setting of hypoalbuminemia: replete as necessary - * Cain in place - Strict I&Os. ENDO - * No history of diabetes. Continue with home dosing of levothyroxine. * BSGs per unit protocol. ISS --> gtt per unit policy. HEME - * Acute blood loss anemia in the setting of GI bleed. * Has received a total of 5 units PRBCs to this point. * Hgb 8.5 and stable for ~48 hours without signs of active GI bleed * will repeat H/H this afternoon * Transfuse as needed, goal >7 * If further transfusions necessary, transfer to tertiary care per general surgery/GI recommendations ID - * Possible aspiration pneumonia and Staph epidermitis/Enterococcus bacteremia: * Last positive blood culture on 06/17, with negative surveillance cultures on 06/21 * mostly afebrile throughout hospitalization * Has been on prolonged abx course for >2 weeks, including Zosyn --> Unasyn; abx x12 days since positive blood cx * will consider stopping antibiotics within 1-2 days (for total 14 days treatment since positive cultures) * follow fever curve LINES/IV ACCESS - * PIVs x3 DVT PROPHYLAXIS - * Hold on chemoprophylaxis in the setting of upper GI bleeding. * SCDs DISPOSITION PLANNING - * Given prolonged hospitalization with multiple comorbidities, consulted palliative care to discuss long-term goals of care * Patient will likely be stable for downgrade out of ICU within the next 24 hours, if no further episodes of GI bleeding Thank you for allowing us to participate in the care of this patient. Please refer to Dr. Calvin's documentation for any further recommendations. (2) Gastritis: Admission and Anticipated Discharge Date Admission Date: June 10, 2021 Supervising Physician Co-Signing Physician Notes Dr Carr was the resident-physician during care of patient. I separately evaluated patient for ruelas portions of the history and the exam. I was present during the critical portion of medical decision making, and I discussed the case with the resident. I generally agree with the findings and plan except for any additions/exceptions noted. Patient seen and examined at bedside. Patient is known to me from previous ICU encounter She had prolonged ICU course she self extubated at that time was altered from. Time and then ultimately was doing well Patient has had significant issues with the GI given the significant hiatal hernia Constitutional: No acute distress HEENT: EOMI, PERRLA Respiratory system: Decreased air entry bilaterally, no wheeze, no rhonchi, positive crackles bilateral lower lobes CVS: S1-S2 positive, no murmurs or gallops Abdomen: Soft, nontender, nondistended, positive bowel sounds x4 Extremities: +2 pulses bilaterally radialis/ dorsalis pedis, no cyanosis, +1 pitting edema bilateral lower extremity Neuro: Awake alert oriented x3 Psych: Normal mood and affect G/U: No Cain --Prophylaxis VTE: IPC GI: Protonix Lines: Peripheral Diet: N.p.o. Plan: I discussed the case with Dr. Bustos and he recommended the patient to be in the ICU for at least 24 hours to monitor her H&H If there is any worsening in the hematemesis or drop in hemoglobin and patient will need to be transferred to a tertiary care center Today the patient is hemodynamically stable, hemoglobin is stable She did have significant bilateral pleural effusion she is +19 L since coming to the hospital I will start the patient on Lasix Advised to keep the patient negative balance I have personally spent 35 minutes of critical care time in the direct management of this patient. This is a life/limb threatening event. This includes time spent evaluating patient, direct bedside care, chart review, placi ng orders, interpretation of diagnostic studies, discussion with consultants, patient, and/or family members regarding treatment decisions, as well as other required patient management activities. This time is exclusive of all separately billable procedures, and teaching time and separate from and in addition to any other critical care service time. Subjective Patient was placed on NC 3L/min overnight for hypoxia while sleeping - she was on RA before falling asleep. Of note has been on supplemental oxygen for majority of this prolonged hospitalization. This morning the patient feels okay overall although fatigued/weak. Denies N/V/hematemesis although had maroon- colored stool overnight. Denies SOB on NC settings. Review of Systems Review of Systems: Denies fever/chills, chest pain, palpitations, SOB, cough, N/V, abdominal pain, rash. Physical Exam Physical Exam: General: A&Ox3. NAD. Cooperative. HEENT: Atraumatic, normocephalic. Pulm: Diminished lung sounds bilaterally. -wheezes, -rales, -rhonchi. Symmetrical chest rise. No increase work of breathing. No respiratory distress. Cardiac: RRR, -mrg. Radial pulses intact and symmetrical. 1+ pitting LE edema to shins bilaterally Abdominal: soft, non-tender, non-distended, BS x 4 Skin: warm, dry, no rash Results & Data Results & Data ([facility]) Vital Signs (Past 12 Hours) Vital Signs Temp Pulse Resp BP Pulse Ox 06/29/21 08:00 66 20 173/79 H 100 06/29/21 07:00 64 22 100 06/29/21 06:00 63 17 100 06/29/21 05:00 36.8 C 66 20 148/73 H 100 06/29/21 03:00 63 15 165/63 H 100 06/29/21 02:00 70 21 163/68 H 99 06/29/21 01:00 81 24 168/69 H 98 06/29/21 00:00 66 16 175/67 H 98 06/28/21 23:54 67 06/28/21 23:25 36.7 C 06/28/21 23:00 66 17 151/65 H 99 06/28/21 22:00 63 14 153/64 H 99 06/28/21 21:00 69 18 153/63 H 98 Resident Activity Tracking Resident Involvement: Resident Care Provided Care Provided: Adult Hospital Medicine
--- NOTE | 2021-06-29 09:39 | Surgery Progress Note ---
Date of Service June 29, 2021 Assessment & Plan (1) Gastric ulcer: (2) Anemia: (3) Recurrent pancreatitis: Plan: 81 year-old female who was initially admitted to hospital with recurrent pancreatitis and subsequently developed aspiration pneumonia, ARDS requiring intubation, and now acute GI bleed with blood loss anemia and upper endoscopy showing large hiatal hernia with deep bleeding gastric ulcerations as cause of her GI bleed. Repeat endoscopy 06/27/21 showing no active bleeding but retained old blood. CTA of chest/abdomen/and pelvis 06/27/21 with no evidence of gastric perforation or ischemia. Hemoglobin: 8.5 --> 9.1 --> 8.5 --> 8.5 (today) s/p 5 units of PRBCs Abdomen is soft, nondistended, and nontender on exam. Plan: Given her large hiatal hernia and recent acute pancreatitis, if she were to need surgery for gastric bleed/perforation from gastric ulcer she will need transfer to tertiary center where multidisciplinary team is available including thoracic and general surgeon. Right now she is hemodynamically stable and abdomen is benign Diet advancement per GI and medicine service. Would recommend Parental nutrition if diet not advanced. Continue PPI Drip Monitor H&H Serial abdominal examinations will follow along Dr. Browne has seen and examined pt, agrees with above. Admission and Anticipated Discharge Date Admission Date: June 10, 2021 Subjective denies of any abdominal pain, nausea or vomiting feeling hungry feeling very weak sitting on bed mendez and she had liquid dark black/ brown bowel movement Physical Exam Constitutional: WD/WN, vitals as above + obese, cooperative and + lethargic; no acute distress and not ill appearing Respiratory: normal respiratory effort; no respiratory distress, no labored breathing and no retractions Gastrointestinal (Abdomen): Inspection/Auscultation: abdomen normal to inspection; abdomen not distended Percussion/Palpation: abdomen soft; abdomen nontender, no guarding and abdomen not rigid Psychiatric: Orientation: alert and oriented x 3 Affect: + tearful affect Results & Data ([facility]) Vital Signs (Past 12 Hours) Vital Signs Temp Pulse Resp BP Pulse Ox 06/29/21 08:00 66 20 173/79 H 100 06/29/21 07:00 64 22 100 06/29/21 06:00 63 17 100 06/29/21 05:00 36.8 C 66 20 148/73 H 100 06/29/21 03:00 63 15 165/63 H 100 06/29/21 02:00 70 21 163/68 H 99 06/29/21 01:00 81 24 168/69 H 98 06/29/21 00:00 66 16 175/67 H 98 06/28/21 23:54 67 06/28/21 23:25 36.7 C 06/28/21 23:00 66 17 151/65 H 99 06/28/21 22:00 63 14 153/64 H 99 Laboratory Results 06/29/21 06/29/21 06/29/21 Range/Units 05:05 05:05 05:05 WBC 7.98 (4.8-10.8) K/uL RBC 2.68 L (4.2-5.4) M/uL Hgb 8.5 L (12.0-16.0) g/dL Hct 26.1 L (37-47) % MCV 97.4 (80-100) fL MCH 31.7 (25-34) pg MCHC 32.6 (32-36) g/dL RDW Std Deviation 54.3 H (36.4-46.3) fL RDW Coeff of Estrellita 16.5 H (11.5-14.5) % Plt Count 336 (130-400) K/uL MPV 8.0 (7.4-10.4) fL Immature Gran % (Auto) 0.4 % Neut % (Auto) 69.0 % Lymph % (Auto) 13.7 % [place] % (Auto) 15.7 % Eos % (Auto) 1.1 % Baso % (Auto) 0.1 % Neut # (Auto) 5.51 (1.4-6.5) K/uL Lymph # (Auto) 1.09 L (1.2-3.4) K/uL [place] # (Auto) 1.25 H (0.11-0.59) K/uL Eos # (Auto) 0.09 (0-0.5) K/uL Baso # (Auto) 0.01 (0-0.2) K/uL Immature Gran # (Auto) 0.03 H (0.00-0.02) K/uL Sodium 145 (136-145) mmol/L Potassium 3.1 L D (3.5-5.1) mmol/L Chloride 112 H (98-107) mmol/L Carbon Dioxide 29 (21-32) mmol/L Anion Gap 4.0 (3-11) BUN 18 (7-18) mg/dl Creatinine 0.48 L (0.6-1.2) mg/dl Est Cr Clr Drug Dosing 90.5 ml/min Est GFR ( Amer) 105.9 ml/min Est GFR (Non-Af Amer) 91.4 ml/min BUN/Creatinine Ratio 38.4 H (10-20) Glucose 89 (70-99) mg/dl POC Glucose (70-99) mg/dl Lactate 0.6 (0.4-2.0) mmol/L Calcium 8.2 L (8.5-10.1) mg/dl Phosphorus 2.1 L (2.5-4.9) mg/dl Magnesium 1.9 (1.8-2.4) mg/dl 06/28/21 06/28/21 06/28/21 Range/Units 22:27 20:35 16:28 WBC (4.8-10.8) K/uL RBC (4.2-5.4) M/uL Hgb 8.5 L (12.0-16.0) g/dL Hct 24.7 L (37-47) % MCV (80-100) fL MCH (25-34) pg MCHC (32-36) g/dL RDW Std Deviation (36.4-46.3) fL RDW Coeff of Estrellita (11.5-14.5) % Plt Count (130-400) K/uL MPV (7.4-10.4) fL Immature Gran % (Auto) % Neut % (Auto) % Lymph % (Auto) % [place] % (Auto) % Eos % (Auto) % Baso % (Auto) % Neut # (Auto) (1.4-6.5) K/uL Lymph # (Auto) (1.2-3.4) K/uL [place] # (Auto) (0.11-0.59) K/uL Eos # (Auto) (0-0.5) K/uL Baso # (Auto) (0-0.2) K/uL Immature Gran # (Auto) (0.00-0.02) K/uL Sodium (136-145) mmol/L Potassium (3.5-5.1) mmol/L Chloride (98-107) mmol/L Carbon Dioxide (21-32) mmol/L Anion Gap (3-11) BUN 21 H (7-18) mg/dl Creatinine (0.6-1.2) mg/dl Est Cr Clr Drug Dosing ml/min Est GFR ( Amer) ml/min Est GFR (Non-Af Amer) ml/min BUN/Creatinine Ratio (10-20) Glucose (70-99) mg/dl POC Glucose 103 H (70-99) mg/dl Lactate (0.4-2.0) mmol/L Calcium (8.5-10.1) mg/dl Phosphorus (2.5-4.9) mg/dl Magnesium (1.8-2.4) mg/dl 06/28/21 06/28/21 06/28/21 Range/Units 16:28 15:27 12:32 WBC (4.8-10.8) K/uL RBC (4.2-5.4) M/uL Hgb 9.1 L (12.0-16.0) g/dL Hct 27.3 L (37-47) % MCV (80-100) fL MCH (25-34) pg MCHC (32-36) g/dL RDW Std Deviation (36.4-46.3) fL RDW Coeff of Estrellita (11.5-14.5) % Plt Count (130-400) K/uL MPV (7.4-10.4) fL Immature Gran % (Auto) % Neut % (Auto) % Lymph % (Auto) % [place] % (Auto) % Eos % (Auto) % Baso % (Auto) % Neut # (Auto) (1.4-6.5) K/uL Lymph # (Auto) (1.2-3.4) K/uL [place] # (Auto) (0.11-0.59) K/uL Eos # (Auto) (0-0.5) K/uL Baso # (Auto) (0-0.2) K/uL Immature Gran # (Auto) (0.00-0.02) K/uL Sodium (136-145) mmol/L Potassium (3.5-5.1) mmol/L Chloride (98-107) mmol/L Carbon Dioxide (21-32) mmol/L Anion Gap (3-11) BUN (7-18) mg/dl Creatinine (0.6-1.2) mg/dl Est Cr Clr Drug Dosing ml/min Est GFR ( Amer) ml/min Est GFR (Non-Af Amer) ml/min BUN/Creatinine Ratio (10-20) Glucose (70-99) mg/dl POC Glucose 102 H 91 (70-99) mg/dl Lactate (0.4-2.0) mmol/L Calcium (8.5-10.1) mg/dl Phosphorus (2.5-4.9) mg/dl Magnesium (1.8-2.4) mg/dl 06/28/21 Range/Units 09:39 WBC (4.8-10.8) K/uL RBC (4.2-5.4) M/uL Hgb (12.0-16.0) g/dL Hct (37-47) % MCV (80-100) fL MCH (25-34) pg MCHC (32-36) g/dL RDW Std Deviation (36.4-46.3) fL RDW Coeff of Estrellita (11.5-14.5) % Plt Count (130-400) K/uL MPV (7.4-10.4) fL Immature Gran % (Auto) % Neut % (Auto) % Lymph % (Auto) % [place] % (Auto) % Eos % (Auto) % Baso % (Auto) % Neut # (Auto) (1.4-6.5) K/uL Lymph # (Auto) (1.2-3.4) K/uL [place] # (Auto) (0.11-0.59) K/uL Eos # (Auto) (0-0.5) K/uL Baso # (Auto) (0-0.2) K/uL Immature Gran # (Auto) (0.00-0.02) K/uL Sodium (136-145) mmol/L Potassium (3.5-5.1) mmol/L Chloride (98-107) mmol/L Carbon Dioxide (21-32) mmol/L Anion Gap (3-11) BUN (7-18) mg/dl Creatinine (0.6-1.2) mg/dl Est Cr Clr Drug Dosing ml/min Est GFR ( Amer) ml/min Est GFR (Non-Af Amer) ml/min BUN/Creatinine Ratio (10-20) Glucose (70-99) mg/dl POC Glucose 90 (70-99) mg/dl Lactate (0.4-2.0) mmol/L Calcium (8.5-10.1) mg/dl Phosphorus (2.5-4.9) mg/dl Magnesium (1.8-2.4) mg/dl
[2021-06-29] MEDS ORDERED: METOPROLOL TARTRATE 1 MG/ML VIAL IV ONE (09:45)
[2021-06-29] MEDS: AMIODARONE 200 MG TAB PO SCH (10:41)
[2021-06-29] MEDS: CHOLECALCIFEROL 1,000 UNITS 25 MCG TAB PO SCH (10:41)
[2021-06-29] MEDS: ASCORBIC ACID 500 MG TAB PO SCH (10:41)
[2021-06-29] MEDS: POLYETHYLENE (MIRALAX) 17 GM PACK PO SCH (10:42)
[2021-06-29] MEDS: SUCRALFATE 1 GM/10 ML UDC PO SCH ×3 (10:42→21:27)
[2021-06-29] MEDS: THIAMINE HCL 100 MG TAB PO SCH (10:42)
[2021-06-29] MEDS: MULTI VIT W/MINERALS LIQUID 15 ML UDP PO SCH (10:42)
[2021-06-29] MEDS: MAGNESIUM OXIDE 400 MG TAB PO SCH (10:42)
[2021-06-29] MEDS: CYANOCOBALAMIN 500 MCG TABLET (VITAMIN B-12) PO SCH (10:42)
[2021-06-29] MEDS: INSULIN ASPART 100 UNITS/ML 3 ML PEN SC SCH ×4 (10:43→20:54)
--- NOTE | 2021-06-29 11:05 | Gastroenterology Progress Note ---
Date of Service June 29, 2021 Assessment & Plan (1) Gastric ulcer: Plan: Secondary to ischemia, with upper GI bleeding. Hemodynamically stable Continue n.p.o. times at least 24 hours more. Considering upper GI series with Gastrografin, discussing with radiology as patient has contrast allergy. Continue careful monitoring of hemoglobin hematocrit, BUN, stool outputs. Admission and Anticipated Discharge Date Admission Date: June 10, 2021 Supervising Physician Co-Signing Physician Notes Attg add: I interviewed and examined pt, reviewed chart and labs. Pt has had small volume dark stools, small volume hematemsis last night. Denies abd pain, asking for food. Abd is entirely non tender on deep palpation. Hgb is stable, labs unremarkable - WBC WNL I reviewed CTA with radiologist - pt with complicated hernia, ?? extra-luminal collection. A/P: Gastric ischemia, UGIB, ? perforation - Etiology of gastric ischemia unclear -- I suspect that she had a volvulus or strangulated PE hernia that was reduced during endoscopy. I will request a CT A/P with IV/oral contrast. Cont empiric abx and PPI therapy. If no leak on CT, then will plan to begin feeds. Subjective 81 yr old female with recent pancreatitis (last week), GI reconsulted for anemia on Monday 06/25. EGD 06/25 with deep gastric ulcer. Repeat EGD 06/27 with large hiatal hernia with ulcer, Gastric ulcer, evidence of ischemia. Hb 8.5 today, stable x 2 days - after a total of 5 units of RBCs. BUN continues to decrease - today normal at 18. Most recent BM at noon yesterday, loose black. Vomited dark red clots x 1 yesterday afternoon - w/o drop in Hb. CTA chest, abd pelvis w/o evidence of vascular compromise and no gastric perf or volvulus. Review of Systems Review of Systems: ROS: Gen: + weakness, No fevers Eyes: No eye redness, or pain, no recent vision changes Resp: No SOB, no cough Cardio: No palpitations/irregular beats, no chest pain GI: No abdominal pain, + vomiting once yesterday : Denies pain on urination Skin: No jaundice, itching or new rashes Psych: discouraged, saying, "emotionally I'm broken" Physical Exam Constitutional: well developed, + ill appearing and cooperative Eyes: PERRL, conjunctivae normal, anicteric sclerae ENMT: external ear and nose normal, oropharynx normal Neck: trachea midline, no thyromegaly Respiratory: normal respiratory effort, lungs clear to auscultation Cardiovascular: RRR, no murmur, no edema Gastrointestinal (Abdomen): Inspection/Auscultation: abdomen normal to inspection and + hypoactive bowel sounds; abdomen not distended Percussion/Palpation: abdomen soft; abdomen nontender Skin: no rashes, warm and dry normal turgor and + pallor Neurologic: PERRL, EOMI, accommodation nl, no face palsy, no dysarthria awake; not confused Psychiatric: A+Ox3, euthymic affect Orientation: alert, oriented x 3 and cooperative Lymphatic: no cervical or axillary lymphadenopathy Results & Data ([facility]) Vital Signs (Past 12 Hours) Vital Signs Temp Pulse Resp BP Pulse Ox 06/29/21 08:00 66 20 173/79 H 100 06/29/21 07:00 64 22 100 06/29/21 06:00 63 17 100 06/29/21 05:00 36.8 C 66 20 148/73 H 100 06/29/21 03:00 63 15 165/63 H 100 06/29/21 02:00 70 21 163/68 H 99 06/29/21 01:00 81 24 168/69 H 98 06/29/21 00:00 66 16 175/67 H 98 06/28/21 23:54 67 06/28/21 23:25 36.7 C 06/28/21 23:00 66 17 151/65 H 99 Laboratory Results WBC 7.9, Hb 8.5, Hct 26, Plts 336, Na 145, K 3.1, Cl 112, CO2 29, BUN 18, Cr .48 Diagnostic Findings CTA chest 06/27:1. No evidence of pulmonary embolism. 2. Moderate bilateral pleural effusions with underlying atelectasis and airspace opacities which may represent atelectasis, pneumonia, and/or aspiration. 3. Pulmonary hypertension. CT angiogram abdomen pelvis 06/27:1. No pneumatosis or pneumoperitoneum to suggest mesenteric ischemia or perforated ulcer. There is a large hiatal hernia with significant gastric distention which may reflect ileus or bowel obstruction. 2. Likely small intramuscular hematoma of the left rectus abdominis.
[2021-06-29] MEDS ORDERED: LACTATED RINGER'S 500 ML IV ONE (15:10)
[2021-06-29 15:28] LABS: Hematocrit (blood only) 27.6 % (37-47)
--- NOTE | 2021-06-29 16:13 | Palliative Care Consultation ---
Date of Consultation June 29, 2021 Assessment & Plan (1) Palliative care encounter: Ms. Vidales is an 81 year old female who presented to the [facility] with a recurrence of pancreatitis and unfortunately developed aspiration PNA. She has an additional PMH that includes ARDS, GIB, hiatal hernia, spinal stenosis, peripheral neuropathy, hypercholesterolemia, HTN, hypothyroidism, and Atrial Fibrillation with RVR. She has received 5 UPRBC just today for her hemoglobing and it has now held about 8.5. An EGD was performed two days ago and no active bleeding was noted. A CTA was performed and unremakable. Given her large hiatal hernia and recent acute pancreatitis, if she were to need surgery for gastric bleed/perforation from gastric ulcer a transfer to a facility with increased acuity would be recommended. Palliative Medicine was consulted to discuss overall goals of care. When I entered the room, she was just leaving in her wheelchair to obtain additional diagnostic imaging. Her of 63 years, Sloan, was in the doorway and I was able to talk with him. He indicated that these past few weeks have been particularly challenging. He said she has spent more time in the hospital than not lately, with this admission alone being 19 days thus far. He stated that she has had approximately 12 admissions this calendar year. We talked about what brings them deni together and he became tearful stating he could not imagine a life without her in it and that 'when she goes, I go too'. He mentioned his 4 adult children. Two are in [place], one in [facility] (His DIL is an RN here) and another in [place]. For now, he stated continue full treatment options, including a full code. Should it look like she is not recovering, I would reach out to their adult children and talk to them separately. Palliative will follow. (2) Anemia: History of Present Illness Reason for Consultation: Goals of care Requesting Physician: Dr. Carr Attending Physician: Antonio Rao History of Present Illness Ms. Vidales is an 81 year old female who presented to the [facility] with a recurrence of pancreatitis and unfortunately developed aspiration PNA. She has an additional PMH that includes ARDS, GIB, hiatal hernia, spinal stenosis, peripheral neuropathy, hypercholesterolemia, HTN, hypothyroidism, and Atrial Fibrillation with RVR. She has received 5 UPRBC just today for her hemoglobing and it has now held about 8.5. An EGD was performed two days ago and no active bleeding was noted. A CTA was performed and unremakable. Given her large hiatal hernia and recent acute pancreatitis, if she were to need surgery for gastric bleed/perforation from gastric ulcer a transfer to a facility with increased acuity would be recommended. Palliative Medicine was consulted to discuss overall goals of care. Please see A/P for further details. Thanks for involving palliative medicine with this indivudal. Allergies Allergy/AdvReac Type Severity Reaction Status Date / Time bee venom protein (honey bee) Allergy Severe HAS AN Verified 06/10/21 19:10 EPIPEN FOR REACTIONS latex Allergy Intermediate HIVES Verified 06/10/21 19:10 Iodinated Contrast Media Allergy Mild RASH Verified 06/10/21 19:10 Home Medications Medication Instructions Recorded Confirmed Type cyanocobalamin (vitamin B-12) 1,000 mcg PO QAM tab 02/27/19 06/10/21 History 1,000 mcg tablet,extended release cyclosporine 0.05 % eye drops in a 1 drp OPB Q12H 03/26/19 06/10/21 History dropperette (Restasis) epinephrine 0.3 mg/0.3 mL 0.3 mg IM DIRECTED PRN 03/26/19 06/10/21 History injection, auto-injector (EpiPen) multivitamin with minerals 1 tab PO QAM 03/26/19 06/10/21 History metronidazole 0.75 % topical cream 1 appln TOP DAILY PRN 12/19/19 06/10/21 History ascorbate calcium (vitamin C) 500 500 mg PO DAILY #30 tab 12/30/19 06/10/21 Rx mg tablet cholecalciferol (vitamin D3) 125 125 mcg PO DAILY #30 cap 12/30/19 06/10/21 Rx mcg (5,000 unit) capsule coenzyme Q10 200 mg capsule 200 mg PO DAILY #30 cap 12/30/19 06/10/21 Rx cranberry fruit concentrate 250 mg 250 mg PO DAILY #90 tab 12/30/19 06/10/21 Rx chewable tablet (Azo Cranberry) echinacea 400 mg capsule 400 mg PO DAILY #90 cap 12/30/19 06/10/21 Rx krill oil 500 mg capsule 500 mg PO DAILY #30 cap 12/30/19 06/10/21 Rx lutein 25 mg-zeaxanthin 5 mg 1 cap PO DAILY #30 cap 12/30/19 06/10/21 Rx capsule magnesium 250 mg tablet 325 mg PO DAILY tab 06/09/20 06/10/21 History levothyroxine 88 mcg tablet 88 mcg PO QAM #90 tab 09/01/20 06/10/21 Rx (Synthroid) melatonin 5 mg capsule 10 mg PO HS #30 cap 04/08/21 06/10/21 Rx Patient History Medical History (Updated 06/29/21 @ 16:12 by LEYDI Tanner) Acute pancreatitis Anemia ARDS (adult respiratory distress syndrome) Arthritis Hiatal hernia Hypertension Hypothyroid Hypothyroidism Lyme disease Macrocytosis Palliative care encounter Recurrent pancreatitis Surgical History H/O cataract extraction S/P bunionectomy right foot X 2 S/P tonsillectomy and adenoidectomy age 14 years Family History Mother Emphysema lung Father Myocardial infarction Hypertension Denies family history of Colon cancer Ovarian cancer Prostate cancer Autoimmune disease Pancreatitis Breast cancer Social History Smoking Status: Never smoker Second Hand Exposure: No; Hx Alcohol Use: No Hx Substance Use: No Preferred Language: Danish Communication Ability: Impaired 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 Beliefs That Will Affect Care: None marital status: Current Living Situation: Spouse Current Living Situation Comment: lives with in [place] 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 Other Information That Helps Us Care for You: No other: 4 kids Feels Safe at Home: Yes Safety Concerns: Feels Safe At This Time Childhood Exposure to Second-Hand Smoke: Yes Dental Care, Regularly: Yes Physical Activity Frequency: Does not Exercise Seatbelt Use: always Sunscreen Use: No Assistive Devices: Glasses Review of Systems Review of Systems: Makinen System Assessment Scale: Pain: 1/3 Nausea: 1/3 SOB: 1/3 Anxiety: 1/3 Palliative Performance Scale: 40% Physical Exam Constitutional: + frail appearing and comfortable ENMT: Mouth: + dry oral mucous membranes Respiratory: normal respiratory effort Auscultation: + diminished lung sounds and + crackles Cardiovascular: Rate/Rhythm: regular rate and regular rhythm Heart Sounds: normal S1 and normal S2 Extremities: normal capillary refill; no edema Gastrointestinal (Abdomen): Inspection/Auscultation: abdomen normal to inspection Percussion/Palpation: abdomen soft Skin: + ecchymosis and + pallor Psychiatric: Orientation: alert and oriented x 3 Insight: good insight Judgement: good judgement Results & Data ([facility]) Vital Signs (Past 12 Hours) Vital Signs Temp Pulse Resp BP Pulse Ox 06/29/21 14:00 69 21 164/85 H 95 06/29/21 13:00 69 20 92 06/29/21 12:00 68 16 92 06/29/21 11:27 60 06/29/21 11:00 75 24 93 06/29/21 10:00 67 18 94 06/29/21 09:00 68 20 92 06/29/21 08:00 65 20 173/79 H 100 06/29/21 07:00 64 22 100 06/29/21 06:00 63 17 100 06/29/21 05:00 36.8 C 66 20 148/73 H 100 PG Care Time/CCT Total # of Minutes Spent Total Time Spent with Patient: Total time spent is greater than 50% in coordination of care (as documented) at patient's floor/unit and/or counseling patient: 100 minutes with > 50% of that time spent assessing the patient, discussing goals of care with family, and collaborating with IDT Coding Level of Care Code 96943 Initial Inpt Care Lvl 3 Diagnoses Palliative care encounter Z51.5 Anemia D64.9 Time Spent (min) 100
[2021-06-29] MEDS ORDERED: OPTIRAY 320 100ml IV ONE (16:16)
--- NOTE | 2021-06-29 16:41 | CT Scan Report ---
ABDOMEN AND PELVIS CT WITH IV AND ORAL CONTRAST CT DOSE: 990.13 mGycm HISTORY: Acute generalized abdominal pain abdominal pain TECHNIQUE: Multiaxial CT images of the abdomen and pelvis were performed following the IV administrat ion of 94 cc of Optiray and oral contrast. A dose lowering technique was utilized adhering to the pr inciples of ROLY. COMPARISON STUDY: CTA chest, abdomen and pelvis 06/27/2021, CT abdomen and pelvis 06/10/2021. FINDINGS: Moderate size layering pleural effusions. Mild dependent bibasilar consolidation with patch y groundglass densities. Calcified left hilar lymph nodes. No pneumatosis or pneumoperitoneum. Cardio megaly with coronary artery calcifications. Calcified granulomata of the spleen. Mild interstitial and peripancreatic edema involving the pancrea tic tail is redemonstrated. No pancreatic ductal dilation or peripancreatic fluid collection. Unremar kable adrenal glands, gallbladder and liver. Bilateral renal sinus cysts. A few cortical cysts redemo nstrated. No hydronephrosis. No ureteral calculi identified. Punctate nonobstructive calculus of the interpolar left kidney redemonstrated. Heterogeneous fibroid uterus. Unremarkable urinary bladder. No adnexal mass lesion. Atherosclerosis of the aorta without aneurysm. No adenopathy. Wall thickening of the distal esophagus with large hiatal hernia redemonstrated. Questioned diverticu lum of the proximal stomach. Loculated fluid along the right aspect of the hernia sac measures up to 6.0 x 3.4 cm on image 77 with mild peripheral enhancement and surrounding inflammatory stranding. The stomach is distended and debris-filled. Wall thickening with surrounding inflammatory stranding cent ered within the mid gastric body. Bowel obstruction or bowel wall thickening. Colonic diverticulosis. Normal appendix. Anasarca. Degenerative changes of the spine, pelvis and hips. 3.1 x 1.5 x 6.0 cm le ft rectus sheath hematoma is unchanged. IMPRESSION: 1. Distal esophageal wall thickening with large hiatal hernia. Inflammatory stranding surrounding the hernia is noted along with a peripherally enhancing 6.0 x 3.4 cm fluid collection along the right la teral aspect. Loculated fluid versus a contained perforation considered. No pneumoperitoneum. 2. Mild wall thickening of the distal gastric body with associated surgical clips and mild perigastri c inflammatory stranding. 3. Findings suggestive of mild acute pancreatitis redemonstrated. 4. No bowel obstruction. 5. Unchanged size of the acute left rectus sheath hematoma measuring up to 6 cm in length, new from 1 . 6. Moderate pleural effusions with anasarca. ACT 112: Negative or not required by law. The above report was generated using voice recognition software. It may contain grammatical, syntax o r spelling errors. Electronically signed by: Mk Kulkarni M.D. 06/29/2021 4:39 PM
[2021-06-29 18:57] LABS: BUN Creatinine Ratio 29.2 (10-20); Calcium 7.9 mg/dl (8.5-10.1); Est GFR (African American) 101.2 ml/min; Est GFR (Non-African American) 87.4 ml/min
--- NOTE | 2021-06-29 20:40 | Billing Data ---
Date of Service June 29, 2021 Coding Level of Care Code 87306 Subseq Hosp Care Lvl 2
[2021-06-29] MEDS: MELATONIN 3 MG TAB PO SCH ×2 (20:53→21:03)
[2021-06-29] MEDS: OLANZapine ZYDIS 5 MG ORALLY DIS. TAB PO SCH ×2 (20:55→21:03)
--- NOTE | 2021-06-29 21:35 | Hospitalist Progress Note ---
Date of Service June 29, 2021 Assessment & Plan (1) Sepsis with acute respiratory failure and septic shock: Plan: This patient is an 81 y/o WF with a PMHx of Hypothyroidism and recurrent pancreatitis admitted 06/10 with acute pancreatitis (Lipase [id number])-- recurrent issues without obvious cause, suspected idiopathic pancreatitis versus autoimmune-daughter reports that this is patient's 12th episode of pancreatitis in her lifetime Treatment of pancreatitis as below - seen by GI early on in the course of admission and plan was for EUS as OP with Dr. Mclain - Patient did not tolerate clear liquids initially- had increased pain and nausea with multiple bouts of emesis which led to aspiration pneumonitis, hypoxia, as well as rapid atrial fibrillation and profound hypotension requiring emergent DC cardioversion, placement on vasopressors and IV amiodarone, and emergent intubation and was transferred to the ICU on the night of 06/11 -Chest x-ray consistent with aspiration pneumonia and she had bronchoscopy to clear out the lungs by pulmonology- Acute respiratory failure with hypoxia secondary to ARDS plus some volume overload -Was then weaned off all vasopressors and weaned off IV hydrocortisone - Blood cultures x2 positive.1x Enterococcus faecalis and 2x coag negative staph. Sensitivities different between CATH LAB NURSE/S epi. ID consulted. - Discussed w/ pharmacy. Given 2x pos culture + and uptrending WBC treated with Vanc, no improvement in WBC, TTE- as noted, switched to Unasyn as noted. - Procalcitonin peaked at 60 downtrended. - Pulmonary toilet, bowel regimen, continue to follow and antibiotics as otherwise noted - Repeat UA on 06/20 - for infection, and repeat chest x-ray 06/20 shows persistent pneumonia and atelectasis. KUB shows moderate to severe amount of stool burden but no obstruction. remains afebrile. - Abx Course: Cefepime/Flagyl x5 dayss --> Zosyn x3 days with improvement --> Unasyn. Uptrending wbc and 2x + BC as above, vanco started 06/21 --> Unasyn 06/25 - Surveillance cultures drawn. -Echocardiogram performed earlier this admission without evidence of vegetation on the valves, but this was prior to culture positivity Repeat TTE 06/24/21: Normal LV size with EF greater than 70%, hyperdynamic, moderate left atrial dilation, mild right atrial dilation, sclerotic aortic valve without stenosis, mild to moderate tricuspid regurg, normal estimated right ventricular systolic pressure. Compared to prior study right ventricular systolic pressure has improved. 06/24/21-06/25/21: Initially to downgrade to Ampicillin, Unasyn selected for GI coverage 2/2 bleeding. Will require 14 days of amp coverage minimum from - , consider enteric coverage based on clinical improvement with Unasyn and residual WBC on Vanco - Leukocytosis persists, improving while on Unasyn. Constipation improved, anemia following melana as noted below. ?Biliary sludge -Follow CBC, CMP -Asked nurse to continue to mobilize patient out of bed to chair, encourage use of incentive spirometer -Continue to work on bowel regimen for severe constipation On 06/29, will transfer out of ICU. Rpeated CT scan: Inflammatory stranding surrounding the hernia is noted along with a peripherally enhancing 6.0 x 3.4 cm fluid collection along the right lateral aspect. Loculated fluid versus a contained perforation considered. No pneumoperitoneum Will see if radiology can do an intervention to remove that fluid. will monitor for GI bleed. patient may need to be transferred to tertiary center for surgery/IR. (2) Anemia: Plan: 06/25 morning patient with large bowel movement, followed by acute hemoglobin drop from 10.0-6.9. Repeat hemoglobin 6.3 Patient ordered 2 units packed red blood cells for transfusion. Pt kris appropriately to 8.7 06/25: active bleeding on exam, no initial AM melena, BUN acutely elevated from 23-53. Large melanic BM in PM. Seen by GI, large gastric ulcer nonbleeding with clot present. 5x clips placed. Post-op drop to 7.4, trended 06/27: Patient with acute hemoglobin drop overnight from 7.3-5.2, transfused with 3 units with appropriate rise in posttransfusion hemoglobin. GI reconsulted, pending evaluation. Blood pressure initially hypotensive, 115/51 following transfusion without tachycardia. Morning metoprolol had been held for hypotension. - Continue PPI IV for 72 hours Eliquis held. Discussed clot vs bleeding risk with pt at bedside - Patient will be on Strict NPO on 06/28 -start a clear diet on 06/29 (3) Encephalopathy acute: Plan: Improved, not yet at baseline but improving Patient with anxiety/agitation and self extubated while in ICU Initially on Precedex drip, was minimally interactive and improved 06/16 and 06/17 with Narcan. 06/18 did well, 06/19 required IV Haldol due to vp of marketing attempts to get out of bed repeatedly with difficult redirecting which improved during daytime, and 11 did well through the night with an evening dose of Zyprexa. Suspect acute encephalopathy due to aspiration pneumonia with additional hospital delirium 06/17 CTH: No acute findings EEG without epileptiform activity, mild encephalopathy during admission Continue pneumonia/sepsis and constipation treatment as otherwise noted Passed speech evaluation for minced and moist Tolerating p.o. well Continue at bedtime Zyprexa (4) Atrial fibrillation with RVR: Plan: - Likely sepsis-driven due to catecholamine release -TTE: Hyperdynamic LV, severe LVH, elevated RVSP at 50-60 mmHg -With profound hypotension as above associated with rapid atrial fibrillation requiring urgent DC cardioversion earlier in her hospital stay and then again requiring phenylephrine. Pressors d/merissa -Amiodarone drip converted to p.o. amiodarone 200 mg once daily Eliquis as noted Remains in sinus rhythm, although with frequent ectopy Continue Toprol 75 mg twice daily, hold for hypotension see above under anemia Optimize potassium, magnesium (5) Hypothyroid: Plan: TSH here normal at 1.9 Continue levothyroxine (6) Hypernatremia: Plan: -Improved following D5W infusion and encouragement of free water Normalized, 144 on 06/21 -Encourage p.o. intake of free water - Follow BMP (7) Acute pancreatitis: Plan: With a history of recurrent pancreatitis x12. Has not had an episode in about 2 years Previously had gallbladder sludge but patient had declined to have cholecystectomy several years ago -Gallbladder ultrasound here again with gallbladder sludge - Pt tx with extensive abx as above, and continued to have residual WBC count on Vanco monotherapy which quickly dropped with Unasyn tx. ?GB involvement and need for enteric coverage - She had EUS which showed pancreatic head cyst in 2018 but then did not return for follow-up EUS at [facility] as planned 1 year later. -CT of A/P: pancreatitis without cyst/pseudocyst and ductal dilation - LFT's initially WNL and then only mild elevation in AST after that, total bilirubin normal - MRCP: pancreatitis without cyst/pseudocyst/abscess or ductal dilation - Triglyceride level WNL: 28 -No evidence of hypercalcemia - Patient does not drink ETOH-confirmed with family - Gi: idiopathic versus autoimmune vs related to cyst? Possibly secondary to gallbladder sludge - Also had pancreatic cyst seen on EUS in 2018-this needs repeat EUS for follow- up in 4 weeks after discharge Patient without abdominal pain, tenderness 06/20 and 06/21 - GI saw patient here and plans for outpatient EUS 1 month after discharge (8) Hiatal hernia: Plan: Large hiatal hernia with approximately half the stomach located in the thoracic cavity noted on CT abdomen/pelvis-this puts her at increased risk for aspiration On IV Protonix earlier in admission, converted to lansoprazole 06/25 acute anemia with rise in BUN? Blood loss, patient made n.p.o. and placed back on PPI drip (9) Aspiration pneumonia: Plan: -As above, gradually downtrending oxygen requirements, mentation improving, on 2 L 06/25 -Chest x-ray with left lower lobe collapse and pleural effusion but slightly improved from previous -Pro-Sanjay initially elevated, down trended, repeat pending -Leukocytosis as noted above -With positive blood cultures as above -Initially on cefepime and metronidazole x5 days, then improved more after starting IV Zosyn x3 days, now narrowed down to Unasyn on 06/19-last day of treatment for pneumonia will be 06/23. Patient completed 8 days of anaerobe coverage respiration pneumonia, but requires ongoing treatment as above. Blood cultures positive in multiple sets for staph epidermidis -Monitor chest x-ray and oxygenation-repeat chest x-ray 06/20 similar to slightly improved aeration on the left -Initially had NG tube for enteral feeds-discontinued this on 06/20 -Speech therapy seen and cleared for minced and moist diet, thin liquids with no straws -Continue incentive spirometry and flutter valve as tolerated -Aspiration precautions (10) CRUZ (acute kidney injury): Plan: With creatinine elevated to 1.68 at peak and normalized Likely secondary to ATN from hypotension and septic shock BMP daily, continue to follow (11) Fever: Plan: As above, now resolved (12) Hypercholesterolemia: Plan: Holding home krill oil (13) Hypertension: Plan: With hypotension as above now while in atrial fibrillation which is now resolved, became hypertensive in a sinus rhythm Now on metoprolol for previous rapid atrial fibrillation. Metoprolol increased as above. Not on medications at home for this (14) Macrocytosis: Plan: B12 and folate normal No history of alcohol use Synthetic liver function seems normal Question if has early MDS? Follow as an outpatient (15) Septicemia: Plan: As above with positive blood cultures See ID recommendations above (16) Hypophosphatemia: Plan: -Repeat pending (17) Edema: Plan: - Previously with anasarca but intravascularly volume depleted with hype rnatremia. IMproving. -Resume diuretics as tolerated by blood pressure -Improve nutrition and albumin (18) Sacral decubitus ulcer, stage III: Plan: continue wound care, compressive dressing, rotate in bed, out of bed to chair as tolerated Plan: DVT prophylaxis Eliquis as noted, held 06/25 for bleeding Admission and Anticipated Discharge Date Admission Date: June 10, 2021 Subjective Patient reports no new symptoms Review of Systems Review of Systems: All systems reviewed & are unremarkable except as noted in HPI & below Physical Exam Physical Exam: General: A&Ox3. NAD. Cooperative. HEENT: Atraumatic, normocephalic. Visual acuity and hearing grossly intact. Pupils equal and reactive to light. Pulm: Moderate air movement, -wheezes, -rales, -rhonchi. Symmetrical chest rise. No increase work of breathing. No respiratory distress. On 2 L nasal cannula. Cardiac: RRR, -mrg. Radial pulses intact and symmetrical. Abdominal: Nontender, nondistended, soft. BS present. Skin: Posterior sacral ulcer with foam dressing intact, patient endorses pain at this, improved with positional changes. Extremities: Right clavicular birthmark present. Radial pulse and PT pulses intact and symmetrical. Moves all extremities equally. Results & Data Results & Data ([facility]) Vital Signs (Past 12 Hours) Vital Signs Temp Pulse Pulse Resp BP BP Pulse Ox 06/29/21 19:18 36.4 C L 84 22 160/65 H 93 06/29/21 19:08 85 23 92 06/29/21 18:00 68 18 99/41 L 93 06/29/21 17:00 66 17 94/41 L 93 06/29/21 16:18 71 21 06/29/21 15:00 78 19 104/44 L 92 06/29/21 14:00 69 21 164/85 H 95 06/29/21 13:00 69 20 92 06/29/21 12:00 68 16 92 06/29/21 11:27 60 06/29/21 11:00 75 24 93 06/29/21 10:00 67 18 94 PG Care Time/CCT Total # of Minutes Spent Total Time Spent with Patient: Total time spent is greater than 50% in coordination of care (as documented) at patient's floor/unit and/or counseling patient: Coding Level of Care Code 19370 Subseq Hosp Care Lvl 2 Diagnoses Sepsis with acute respiratory failure and septic shock A41.9; R65.21; J96.00 Anemia D64.9 Encephalopathy acute G93.40 Atrial fibrillation with RVR I48.91 Hypothyroid E03.9 Hypernatremia E87.0 Acute pancreatitis K85.90 Acute pancreatitis complication: unspecified Pancreatitis type: unspecified pancreatitis type Hiatal hernia K44.9 Aspiration pneumonia J69.0 CRUZ (acute kidney injury) N17.9 Fever R50.9 Hypercholesterolemia E78.00 Hypertension I10 Hypertension type: essential hypertension Macrocytosis D75.89 Septicemia A41.9 Hypophosphatemia E83.39 Edema R60.9 Sacral decubitus ulcer, stage III L89.153 (1) Acute pancreatitis Acute pancreatitis complication: unspecified Pancreatitis type: unspecified pancreatitis type Qualified Code(s): K85.90 - Acute pancreatitis without necrosis or infection, unspecified (2) Hypertension Hypertension type: essential hypertension Qualified Code(s): I10 - Essential (primary) hypertension
[2021-06-30] MEDS: PANTOprazole 40 MG in DEXTROSE 5% 100 ML IV SCH ×3 (01:13→10:43)
[2021-06-30] MEDS: AMPICILLIN/SULBACTAM SOD 3,000 MG in 0.9 % SODIUM CHLORIDE 100 ML IV SCH ×4 (01:13→20:20)
[2021-06-30] MEDS: LEVOTHYROXINE SODIUM 88 MCG TABLET PO SCH (05:39)
[2021-06-30] MEDS: INSULIN ASPART 100 UNITS/ML 3 ML PEN SC SCH ×4 (07:55→20:21)
[2021-06-30] MEDS: FUROSEMIDE 40 MG/4 ML VIAL IV SCH (07:58)
[2021-06-30] MEDS: CYANOCOBALAMIN 500 MCG TABLET (VITAMIN B-12) PO SCH (07:58)
[2021-06-30] MEDS: ASCORBIC ACID 500 MG TAB PO SCH (07:59)
[2021-06-30] MEDS: MAGNESIUM OXIDE 400 MG TAB PO SCH (07:59)
[2021-06-30] MEDS: CHOLECALCIFEROL 1,000 UNITS 25 MCG TAB PO SCH (07:59)
[2021-06-30] MEDS: THIAMINE HCL 100 MG TAB PO SCH (07:59)
[2021-06-30] MEDS: AMIODARONE 200 MG TAB PO SCH (07:59)
[2021-06-30] MEDS: MULTI VIT W/MINERALS LIQUID 15 ML UDP PO SCH ×2 (08:00→11:40)
[2021-06-30] MEDS: SUCRALFATE 1 GM/10 ML UDC PO SCH ×4 (08:00→20:21)
[2021-06-30] MEDS ORDERED: LACTATED RINGER'S 1,000 ML IV SCH (08:00)
[2021-06-30] MEDS: POLYETHYLENE (MIRALAX) 17 GM PACK PO SCH (08:00)
--- NOTE | 2021-06-30 11:21 | Surgery Progress Note ---
Date of Service June 30, 2021 Assessment & Plan (1) Gastric ulcer: (2) Anemia: (3) Recurrent pancreatitis: Plan: 81 year-old female who was initially admitted to hospital with recurrent pancreatitis and subsequently developed aspiration pneumonia, ARDS requiring intubation, and now acute GI bleed with blood loss anemia and upper endoscopy showing large hiatal hernia with deep bleeding gastric ulcerations as cause of her GI bleed. Repeat endoscopy 06/27/21 showing no active bleeding but retained old blood and ischemic findings. CTA of chest/abdomen/and pelvis 06/27/21 with no evidence of gastric perforation or ischemia. Hemoglobin: 8.5 --> 9.1 --> 8.5 --> 8.5 --> 9.0 s/p 5 units of PRBCs Abdomen is soft, nondistended, and nontender on exam. repeat CT scan of abdomen and pelvis with IV and oral contrast on 06/29/21 showing 6.0 x 3.4 cm loculated fluid collection in chest at lateral aspect of stomach which could be contained perforation. Plan: Given her large hiatal hernia and recent acute pancreatitis, if she were to need surgery for gastric bleed/perforation from gastric ulcer she will need transfer to tertiary center where multidisciplinary team is available including thoracic and general surgeon. Right now she is hemodynamically stable and abdomen is benign Even with repeat CT scan showing fluid collection and concern for contained perforation, there is no acute surgical indication at this time. Diet advancement per GI and medicine service. Would recommend Parental nutrition as patient is not taking in much clear liquids and her main concern is no strength and very weak. Would also recommend BID BOOST/Ensure/Breeze supplementation. Would unlikely consider PEG tube placement given gastric ischemia on endoscopy. If she were to need prolonged nutritional support could possibly consider J-tube placement however would not recommend at this time. Continue PPI Drip will follow along Dr. Browne has seen and examined pt, agrees with above. Admission and Anticipated Discharge Date Admission Date: June 10, 2021 Subjective patient very tearful and upset upon entering room. States she just does not have any energy and "please help me get some strength" no abdominal pain no nausea or vomiting tolerated small amount of clear liquids for dinner and breakfast but not eating entire tray worried about her strength and very upset she cannot do anything on her own Physical Exam Constitutional: + obese; no acute distress and not ill appearing Respiratory: normal respiratory effort; no respiratory distress, no labored breathing and no retractions Gastrointestinal (Abdomen): Inspection/Auscultation: abdomen normal to inspection; abdomen not distended Percussion/Palpation: abdomen soft; abdomen nontender, no guarding and abdomen not rigid Skin: no rashes, warm and dry Psychiatric: Orientation: alert and oriented x 3 Eye Contact: good eye contact Affect: + tearful affect Mood: + depressed mood Results & Data ([facility]) Vital Signs (Past 12 Hours) Vital Signs Temp Pulse Pulse Resp BP Pulse Ox 06/30/21 07:38 36.5 C 72 22 142/86 H 98 06/30/21 04:00 36.7 C 73 22 142/86 H 100 06/30/21 00:00 61 06/29/21 23:30 36.4 C L 63 18 165/76 H 98 Laboratory Results 06/30/21 06/29/21 06/29/21 Range/Units 07:32 20:15 18:25 Hgb (12.0-16.0) g/dL Hct (37-47) % Sodium 144 (136-145) mmol/L Potassium 4.0 D (3.5-5.1) mmol/L Chloride 111 H (98-107) mmol/L Carbon Dioxide 24 (21-32) mmol/L Anion Gap 10.0 (3-11) BUN 16 (7-18) mg/dl Creatinine 0.55 L (0.6-1.2) mg/dl Est Cr Clr Drug Dosing 79.0 ml/min Est GFR ( Amer) 101.2 ml/min Est GFR (Non-Af Amer) 87.4 ml/min BUN/Creatinine Ratio 29.2 H (10-20) Glucose 101 H (70-99) mg/dl POC Glucose 123 H 178 H (70-99) mg/dl Calcium 7.9 L (8.5-10.1) mg/dl Phosphorus (2.5-4.9) mg/dl 06/29/21 06/29/21 06/29/21 Range/Units 18:25 18:08 15:23 Hgb 9.0 L (12.0-16.0) g/dL Hct 27.6 L (37-47) % Sodium (136-145) mmol/L Potassium (3.5-5.1) mmol/L Chloride (98-107) mmol/L Carbon Dioxide (21-32) mmol/L Anion Gap (3-11) BUN (7-18) mg/dl Creatinine (0.6-1.2) mg/dl Est Cr Clr Drug Dosing ml/min Est GFR ( Amer) ml/min Est GFR (Non-Af Amer) ml/min BUN/Creatinine Ratio (10-20) Glucose (70-99) mg/dl POC Glucose 127 H (70-99) mg/dl Calcium (8.5-10.1) mg/dl Phosphorus 3.4 D (2.5-4.9) mg/dl 06/29/21 Range/Units 12:10 Hgb (12.0-16.0) g/dL Hct (37-47) % Sodium (136-145) mmol/L Potassium (3.5-5.1) mmol/L Chloride (98-107) mmol/L Carbon Dioxide (21-32) mmol/L Anion Gap (3-11) BUN (7-18) mg/dl Creatinine (0.6-1.2) mg/dl Est Cr Clr Drug Dosing ml/min Est GFR ( Amer) ml/min Est GFR (Non-Af Amer) ml/min BUN/Creatinine Ratio (10-20) Glucose (70-99) mg/dl POC Glucose 87 (70-99) mg/dl Calcium (8.5-10.1) mg/dl Phosphorus (2.5-4.9) mg/dl Diagnostic Findings ABDOMEN AND PELVIS CT WITH IV AND ORAL CONTRAST CT DOSE: 990.13 mGycm HISTORY: Acute generalized abdominal pain abdominal pain TECHNIQUE: Multiaxial CT images of the abdomen and pelvis were performed following the IV administration of 94 cc of Optiray and oral contrast. A dose lowering technique was utilized adhering to the principles of ALARA. COMPARISON STUDY: CTA chest, abdomen and pelvis 06/27/2021, CT abdomen and pelvis 06/10/2021. FINDINGS: Moderate size layering pleural effusions. Mild dependent bibasilar consolidation with patchy groundglass densities. Calcified left hilar lymph nodes. No pneumatosis or pneumoperitoneum. Cardiomegaly with coronary artery calcifications. Calcified granulomata of the spleen. Mild interstitial and peripancreatic edema involving the pancreatic tail is redemonstrated. No pancreatic ductal dilation or peripancreatic fluid collection. Unremarkable adrenal glands, gallbladder and liver. Bilateral renal sinus cysts. A few cortical cysts redemonstrated. No hydronephrosis. No ureteral calculi identified. Punctate nonobstructive calculus of the interpolar left kidney redemonstrated. Heterogeneous fibroid uterus. Unremarkable urinary bladder. No adnexal mass lesion. Atherosclerosis of the aorta without aneurysm. No adenopathy. Wall thickening of the distal esophagus with large hiatal hernia redemonstrated. Questioned diverticulum of the proximal stomach. Loculated fluid along the right aspect of the hernia sac measures up to 6.0 x 3.4 cm on image 77 with mild peripheral enhancement and surrounding inflammatory stranding. The stomach is distended and debris-filled. Wall thickening with surrounding inflammatory s tranding centered within the mid gastric body. Bowel obstruction or bowel wall thickening. Colonic diverticulosis. Normal appendix. Anasarca. Degenerative changes of the spine, pelvis and hips. 3.1 x 1.5 x 6.0 cm left rectus sheath hematoma is unchanged. IMPRESSION: 1. Distal esophageal wall thickening with large hiatal hernia. Inflammatory stranding surrounding the hernia is noted along with a peripherally enhancing 6.0 x 3.4 cm fluid collection along the right lateral aspect. Loculated fluid versus a contained perforation considered. No pneumoperitoneum. 2. Mild wall thickening of the distal gastric body with associated surgical clips and mild perigastric inflammatory stranding. 3. Findings suggestive of mild acute pancreatitis redemonstrated. 4. No bowel obstruction. 5. Unchanged size of the acute left rectus sheath hematoma measuring up to 6 cm in length, new from 06/10/2021. 6. Moderate pleural effusions with anasarca.
--- NOTE | 2021-06-30 12:37 | Gastroenterology Progress Note ---
Date of Service June 30, 2021 Assessment & Plan (1) Anemia: Plan: Stable post transfusion. Continue careful monitoring of I &Os. (2) Gastric ulcer: Plan: Continue conservative management Clear liquids po. Continue broad spectrum antibiotics to prevent paraesophageal fluid cyst from harboring infection. Will discuss with Dr. Mclain ? ammenable to eventual draining by EUS? Continue IV fluids if not taking po well. Continue pantoprazole drip. Admission and Anticipated Discharge Date Admission Date: June 10, 2021 Supervising Physician Co-Signing Physician Notes Attg add: I interviewed and examined pt, reviewed chart and labs. Pt anxious, but denies any acute pain,n/v. She complains of weakness, poor appetite. Abd is soft NT. CT from yesterday shows fluid collection adjacent to HH. A/P: Gastric ischemia -- strangulated PE hernia? Fluid collection, presumably walled off perf No extrav on CT - Change PPI to twice daily. Clears, then full liquids. Cont abx for fluid collection; consider possible EUS drainage in the next few weeks, once fluid collection has matured and once pt has recovered from gastric ischemic event. Subjective 81 yr old female with recent pancreatitis (last week), GI reconsulted for anemia on Monday 06/25. EGD 06/25 with deep gastric ulcer. Repeat EGD 06/27 with large hiatal hernia with ulcer, Gastric ulcer, evidence of ischemia. Hb 9 today, stable x 3 days - after a total of 5 units of RBCs. BUN continues to decrease - today normal at 18. Most recent BM small black, this morning - w/o drop in Hb. Repeat CT chest yesterday with a 6cm fluid accumulation near the esophagus, distal esophageal wall thickening and large HH. This morning sitting up in a chair. HR 90's but increases to 110's- 120 if exerts herself (such as moving around in the chair). O2 sat 93% on room air. C/o not being able to swallow well - difficult to take her pills. Review of Systems Review of Systems: ROS: Gen: + weakness, No fevers, weight loss Eyes: No eye redness, or pain, no recent vision changes Resp: No SOB, no cough Cardio: + some tachycardia, No chest pain GI: See HPI; No abdominal pain, no nausea/vomiting : Denies pain on urination Skin: No jaundice, itching or new rash Ext: minimal lower leg edema Physical Exam Constitutional: well developed (but deconditioned, frail though overweight), + ill appearing and cooperative Eyes: PERRL, conjunctivae normal, anicteric sclerae Respiratory: normal respiratory effort, lungs clear to auscultation Cardiovascular: RRR, no murmur, no edema Gastrointestinal (Abdomen): normal bowel sounds, soft, nontender, no hepatosplenomegaly Skin: no rashes, warm and dry normal turgor Neurologic: PERRL, EOMI, accommodation nl, no face palsy, no dysarthria awake; not confused Psychiatric: A+Ox3, euthymic affect Orientation: alert, oriented x 3 and cooperative Results & Data ([facility]) Vital Signs (Past 12 Hours) Vital Signs Temp Pulse Pulse Resp BP Pulse Ox 06/30/21 12:08 92 H 29 H 129/86 93 06/30/21 08:00 115 H 06/30/21 07:38 36.5 C 72 22 142/86 H 98 06/30/21 04:00 36.7 C 73 22 142/86 H 100 Laboratory Results Hb 9, Hct 27, Diagnostic Findings CT with IV and gastrografin contrast 06/29/21: 1. Distal esophageal wall thickening with large hiatal hernia. Inflammatory stranding surrounding the hernia is noted along with a peripherally enhancing 6.0 x 3.4 cm fluid collection along the right lateral aspect. Loculated fluid versus a contained perforation considered. No pneumoperitoneum. 2. Mild wall thickening of the distal gastric body with associated surgical clips and mild perigastric inflammatory stranding. 3. Findings suggestive of mild acute pancreatitis redemonstrated. 4. No bowel obstruction. 5. Unchanged size of the acute left rectus sheath hematoma measuring up to 6 cm in length, new from 06/10/2021. 6. Moderate pleural effusions with anasarca.
[2021-06-30] MEDS ORDERED: TPN/PPN CONSULT PHARMACY PRN (13:17)
[2021-06-30] MEDS ORDERED: EPINEPHrine INJ 1 MG/ML AMP IM PRN (13:30)
[2021-06-30] MEDS: MELATONIN 3 MG TAB PO SCH (18:54)
[2021-06-30] MEDS: PANTOprazole 40 MG TAB PO SCH (20:20)
[2021-06-30] MEDS: OLANZapine ZYDIS 5 MG ORALLY DIS. TAB PO SCH (20:20)
--- NOTE | 2021-06-30 20:57 | Hospitalist Progress Note ---
Date of Service June 30, 2021 Assessment & Plan (1) Sepsis with acute respiratory failure and septic shock: Plan: This patient is an 81 y/o WF with a PMHx of Hypothyroidism and recurrent pancreatitis admitted 06/10 with acute pancreatitis (Lipase [id number])-- recurrent issues without obvious cause, suspected idiopathic pancreatitis versus autoimmune-daughter reports that this is patient's 12th episode of pancreatitis in her lifetime Treatment of pancreatitis as below - seen by GI early on in the course of admission and plan was for EUS as OP with Dr. Mclain - Patient did not tolerate clear liquids initially- had increased pain and nausea with multiple bouts of emesis which led to aspiration pneumonitis, hypoxia, as well as rapid atrial fibrillation and profound hypotension requiring emergent DC cardioversion, placement on vasopressors and IV amiodarone, and emergent intubation and was transferred to the ICU on the night of 06/11 -Chest x-ray consistent with aspiration pneumonia and she had bronchoscopy to clear out the lungs by pulmonology- Acute respiratory failure with hypoxia secondary to ARDS plus some volume overload -Was then weaned off all vasopressors and weaned off IV hydrocortisone - Blood cultures x2 positive.1x Enterococcus faecalis and 2x coag negative staph. Sensitivities different between [facility] epi. ID consulted. - Discussed w/ pharmacy. Given 2x pos culture + and uptrending WBC treated with Vanc, no improvement in WBC, TTE- as noted, switched to Unasyn as noted. - Procalcitonin peaked at 60 downtrended. - Pulmonary toilet, bowel regimen, continue to follow and antibiotics as otherwise noted - Repeat UA on 06/20 - for infection, and repeat chest x-ray 06/20 shows persistent pneumonia and atelectasis. KUB shows moderate to severe amount of stool burden but no obstruction. remains afebrile. - Abx Course: Cefepime/Flagyl x5 dayss --> Zosyn x3 days with improvement --> Unasyn. Uptrending wbc and 2x + BC as above, vanco started 06/21 --> Unasyn 06/25 - Surveillance cultures drawn. -Echocardiogram performed earlier this admission without evidence of vegetation on the valves, but this was prior to culture positivity Repeat TTE 06/24/21: Normal LV size with EF greater than 70%, hyperdynamic, moderate left atrial dilation, mild right atrial dilation, sclerotic aortic valve without stenosis, mild to moderate tricuspid regurg, normal estimated right ventricular systolic pressure. Compared to prior study right ventricular systolic pressure has improved. 06/24/21-06/25/21: Initially to downgrade to Ampicillin, Unasyn selected for GI coverage 2/2 bleeding. Will require 14 days of amp coverage minimum from - , consider enteric coverage based on clinical improvement with Unasyn and residual WBC on Vanco - Leukocytosis persists, improving while on Unasyn. Constipation improved, anemia following melana as noted below. ?Biliary sludge -Follow CBC, CMP -Asked nurse to continue to mobilize patient out of bed to chair, encourage use of incentive spirometer -Continue to work on bowel regimen for severe constipation On 06/29, will transfer out of ICU. Rpeated CT scan: Inflammatory stranding surrounding the hernia is noted along with a peripherally enhancing 6.0 x 3.4 cm fluid collection along the right lateral aspect. Loculated fluid versus a contained perforation considered. No pneumoperitoneum Will see if radiology can do an intervention to remove that fluid. will monitor for GI bleed. patient may need to be transferred to tertiary center for surgery/IR. on 08/[address] patient on PPN to help with her nutrition. (2) Anemia: Plan: 06/25 morning patient with large bowel movement, followed by acute hemoglobin drop from 10.0-6.9. Repeat hemoglobin 6.3 Patient ordered 2 units packed red blood cells for transfusion. Pt kris appropriately to 8.7 06/25: active bleeding on exam, no initial AM melena, BUN acutely elevated from 23-53. Large melanic BM in PM. Seen by GI, large gastric ulcer nonbleeding with clot present. 5x clips placed. Post-op drop to 7.4, trended 06/27: Patient with acute hemoglobin drop overnight from 7.3-5.2, transfused with 3 units with appropriate rise in posttransfusion hemoglobin. GI reconsulted, pending evaluation. Blood pressure initially hypotensive, 115/51 following transfusion without tachycardia. Morning metoprolol had been held for hypotension. - Continue PPI IV for 72 hours Eliquis held. Discussed clot vs bleeding risk with pt at bedside - Patient will be on Strict NPO on 06/28 -start a clear diet on 06/29 -hemoglobin has been stable, (3) Encephalopathy acute: Plan: Improved, not yet at baseline but improving Patient with anxiety/agitation and self extubated while in ICU Initially on Precedex drip, was minimally interactive and improved 06/16 and 06/17 with Narcan. 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 Suspect acute encephalopathy due to aspiration pneumonia with additional hospital delirium 06/17 CTH: No acute findings EEG without epileptiform activity, mild encephalopathy during admission Continue pneumonia/sepsis and constipation treatment as otherwise noted Passed speech evaluation for minced and moist Tolerating p.o. well Continue at bedtime Zyprexa (4) Atrial fibrillation with RVR: Plan: - Likely sepsis-driven due to catecholamine release -TTE: Hyperdynamic LV, severe LVH, elevated RVSP at 50-60 mmHg -With profound hypotension as above associated with rapid atrial fibrillation requiring urgent DC cardioversion earlier in her hospital stay and then again requiring phenylephrine. Pressors d/merissa -Amiodarone drip converted to p.o. amiodarone 200 mg once daily Eliquis as noted Remains in sinus rhythm, although with frequent ectopy Continue Toprol 75 mg twice daily, hold for hypotension see above under anemia Optimize potassium, magnesium (5) Hypothyroid: Plan: TSH here normal at 1.9 Continue levothyroxine (6) Hypernatremia: Plan: -Improved following D5W infusion and encouragement of free water Normalized, 144 on 06/21 -Encourage p.o. intake of free water - Follow BMP (7) Acute pancreatitis: Plan: With a history of recurrent pancreatitis x12. Has not had an episode in about 2 years Previously had gallbladder sludge but patient had declined to have cholecystectomy several years ago -Gallbladder ultrasound here again with gallbladder sludge - Pt tx with extensive abx as above, and continued to have residual WBC count on Vanco monotherapy which quickly dropped with Unasyn tx. ?GB involvement and need for enteric coverage - She had EUS which showed pancreatic head cyst in 2018 but then did not return for follow-up EUS at [facility] as planned 1 year later. -CT of A/P: pancreatitis without cyst/pseudocyst and ductal dilation - LFT's initially WNL and then only mild elevation in AST after that, total bilirubin normal - MRCP: pancreatitis without cyst/pseudocyst/abscess or ductal dilation - Triglyceride level WNL: 28 -No evidence of hypercalcemia - Patient does not drink ETOH-confirmed with family - Gi: idiopathic versus autoimmune vs related to cyst? Possibly secondary to gallbladder sludge - Also had pancreatic cyst seen on EUS in 2018-this needs repeat EUS for follow- up in 4 weeks after discharge Patient without abdominal pain, tenderness 06/20 and 06/21 - GI saw patient here and plans for outpatient EUS 1 month after discharge (8) Hiatal hernia: Plan: Large hiatal hernia with approximately half the stomach located in the thoracic cavity noted on CT abdomen/pelvis-this puts her at increased risk for aspiration On IV Protonix earlier in admission, converted to lansoprazole 06/25 acute anemia with rise in BUN? Blood loss, patient made n.p.o. and placed back on PPI drip (9) Aspiration pneumonia: Plan: -As above, gradually downtrending oxygen requirements, mentation improving, on 2 L 06/25 -Chest x-ray with left lower lobe collapse and pleural effusion but slightly improved from previous -Pro-Sanjay initially elevated, down trended, repeat pending -Leukocytosis as noted above -With positive blood cultures as above -Initially on cefepime and metronidazole x5 days, then improved more after starting IV Zosyn x3 days, now narrowed down to Unasyn on 06/19-last day of treatment for pneumonia will be 06/23. Patient completed 8 days of anaerobe coverage respiration pneumonia, but requires ongoing treatment as above. Blood cultures positive in multiple sets for staph epidermidis -Monitor chest x-ray and oxygenation-repeat chest x-ray 06/20 similar to slightly improved aeration on the left -Initially had NG tube for enteral feeds-discontinued this on 06/20 -Speech therapy seen and cleared for minced and moist diet, thin liquids with no straws -Continue incentive spirometry and flutter valve as tolerated -Aspiration precautions (10) CRUZ (acute kidney injury): Plan: With creatinine elevated to 1.68 at peak and normalized Likely secondary to ATN from hypotension and septic shock BMP daily, continue to follow (11) Fever: Plan: As above, now resolved (12) Hypercholesterolemia: Plan: Holding home krill oil (13) Hypertension: Plan: With hypotension as above now while in atrial fibrillation which is now resolved, became hypertensive in a sinus rhythm Now on metoprolol for previous rapid atrial fibrillation. Metoprolol increased as above. Not on medications at home for this (14) Macrocytosis: Plan: B12 and folate normal No history of alcohol use Synthetic liver function seems normal Question if has early MDS? Follow as an outpatient (15) Septicemia: Plan: As above with positive blood cultures See ID recommendations above (16) Hypophosphatemia: Plan: -Repeat pending (17) Edema: Plan: - Previously with anasarca but intravascularly volume depleted with hypernatremia. IMproving. -Resume diuretics as tolerated by blood pressure -Improve nutrition and albumin (18) Sacral decubitus ulcer, stage III: Plan: continue wound care, compressive dressing, rotate in bed, out of bed to chair as tolerated Plan: DVT prophylaxis Eliquis as noted, held 06/25 for bleeding Admission and Anticipated Discharge Date Admission Date: June 10, 2021 Subjective Patient reports feeling weak. She reports it was difficult to take her meds Review of Systems Review of Systems: All systems reviewed & are unremarkable except as noted in HPI & below Physical Exam Physical Exam: General: A&Ox3. NAD. Cooperative. HEENT: Atraumatic, normocephalic. Visual acuity and hearing grossly intact. Pupils equal and reactive to light. Pulm: Moderate air movement, -wheezes, -rales, -rhonchi. Symmetrical chest rise. No increase work of breathing. No respiratory distress. On 2 L nasal cannula. Cardiac: RRR, -mrg. Radial pulses intact and symmetrical. Abdominal: Nontender, nondistended, soft. BS present. Skin: Posterior sacral ulcer with foam dressing intact, patient endorses pain at this, improved with positional changes. Extremities: Right clavicular birthmark present. Radial pulse and PT pulses intact and symmetrical. Moves all extremities equally. Results & Data Results & Data ([facility]) Vital Signs (Past 12 Hours) Vital Signs Pulse Pulse Resp BP Pulse Ox 06/30/21 16:00 87 06/30/21 15:20 97 H 132/85 92 06/30/21 12:08 92 H 29 H 129/86 93 PG Care Time/CCT Total # of Minutes Spent Total Time Spent with Patient: Total time spent is greater than 50% in coordination of care (as documented) at patient's floor/unit and/or counseling patient: Coding Level of Care Code 46438 Subseq Hosp Care Lvl 2 Diagnoses Sepsis with acute respiratory failure and septic shock A41.9; R65.21; J96.00 Anemia D64.9 Encephalopathy acute G93.40 Atrial fibrillation with RVR I48.91 Hypothyroid E03.9 Hypernatremia E87.0 Acute pancreatitis K85.90 Acute pancreatitis complication: unspecified Pancreatitis type: unspecified pancreatitis type Hiatal hernia K44.9 Aspiration pneumonia J69.0 CRUZ (acute kidney injury) N17.9 Fever R50.9 Hypercholesterolemia E78.00 Hypertension I10 Hypertension type: essential hypertension Macrocytosis D75.89 Septicemia A41.9 Hypophosphatemia E83.39 Edema R60.9 Sacral decubitus ulcer, stage III L89.153 Time Spent (min) 25 (1) Hypertension Hypertension type: essential hypertension Qualified Code(s): I10 - Essential (primary) hypertension (2) Acute pancreatitis Acute pancreatitis complication: unspecified Pancreatitis type: unspecified pancreatitis type Qualified Code(s): K85.90 - Acute pancreatitis without necrosis or infection, unspecified
[2021-06-30] MEDS: ACETAMINOPHEN 325 MG TAB PO PRN (21:07)
[2021-07-01] MEDS: AMPICILLIN/SULBACTAM SOD 3,000 MG in 0.9 % SODIUM CHLORIDE 100 ML IV SCH ×4 (01:15→20:11)
[2021-07-01] MEDS: LEVOTHYROXINE SODIUM 88 MCG TABLET PO SCH (06:05)
[2021-07-01 06:17] LABS: Calcium 8.1 mg/dl (8.5-10.1); Creatinine Clr Calc Pharmacy 73.5 ml/min; Est GFR (African American) 99.5 ml/min; Est GFR (Non-African American) 85.8 ml/min; Magnesium 1.6 mg/dl (1.8-2.4); Potassium 2.7 mmol/L (3.5-5.1)
[2021-07-01 06:27] LABS: Bilirubin,Total 0.6 mg/dl (0.2-1); Phosphorus 2.8 mg/dl (2.5-4.9)
[2021-07-01] MEDS: SUCRALFATE 1 GM/10 ML UDC PO SCH ×4 (09:15→20:12)
[2021-07-01] MEDS: CYANOCOBALAMIN 500 MCG TABLET (VITAMIN B-12) PO SCH (09:18)
[2021-07-01] MEDS: AMIODARONE 200 MG TAB PO SCH (09:19)
[2021-07-01] MEDS: CHOLECALCIFEROL 1,000 UNITS 25 MCG TAB PO SCH (09:19)
[2021-07-01] MEDS: THIAMINE HCL 100 MG TAB PO SCH (09:20)
[2021-07-01] MEDS: PANTOprazole 40 MG TAB PO SCH ×2 (09:20→20:13)
[2021-07-01] MEDS: MULTI VIT W/MINERALS LIQUID 15 ML UDP PO SCH (09:20)
[2021-07-01] MEDS: ASCORBIC ACID 500 MG TAB PO SCH (09:20)
--- NOTE | 2021-07-01 09:22 | Surgery Progress Note ---
Date of Service July 01, 2021 Assessment & Plan (1) Gastric ulcer: (2) Anemia: (3) Recurrent pancreatitis: Plan: 81 year-old female who was initially admitted to hospital with recurrent pancreatitis and subsequently developed aspiration pneumonia, ARDS requiring intubation, and now acute GI bleed with blood loss anemia and upper endoscopy showing large hiatal hernia with deep bleeding gastric ulcerations as cause of her GI bleed. Repeat endoscopy 06/27/21 showing no active bleeding but retained old blood and ischemic findings. CTA of chest/abdomen/and pelvis 06/27/21 with no evidence of gastric perforation or ischemia. Hemoglobin: 8.5 --> 9.1 --> 8.5 --> 8.5 --> 9.0 s/p 5 units of PRBCs Abdomen is soft, nondistended, and nontender on exam. repeat CT scan of abdomen and pelvis with IV and oral contrast on 06/29/21 showing 6.0 x 3.4 cm loculated fluid collection in chest at lateral aspect of stomach which could be contained perforation. Plan: Given her large hiatal hernia and recent acute pancreatitis, if she were to need surgery for gastric bleed/perforation from gastric ulcer she will need transfer to tertiary center where multidisciplinary team is available including thoracic and general surgeon. Right now she is hemodynamically stable and abdomen is benign Even with repeat CT scan showing fluid collection and concern for contained perforation, there is no acute surgical indication at this time. Diet advancement per GI and medicine service. Would recommend Parental nutrition as patient is not taking in much clear liquids and her main concern is no strength and very weak. Would also recommend BID BOOST/Ensure/Breeze supplementation. Continue PPI BID replace potassium will follow along Dr. Browne has seen and examined pt, agrees with above. Admission and Anticipated Discharge Date Admission Date: June 10, 2021 Subjective feeling better today able to tolerate more clear liquids this morning, has boost as well possibly getting IV nutrition today no abdominal pain, n, v Physical Exam Constitutional: + obese, cooperative and comfortable; no acute distress and not ill appearing Respiratory: normal respiratory effort; no respiratory distress, no labored breathing and no retractions Gastrointestinal (Abdomen): Inspection/Auscultation: abdomen normal to inspection and + hypoactive bowel sounds; abdomen not distended Percussion/Palpation: abdomen soft; abdomen nontender, no guarding and abdomen not rigid Skin: no rashes, warm and dry + ecchymosis (of lower left abdomen, significant ecchymosis of left antecubital fossa) Psychiatric: Orientation: alert and oriented x 3 Eye Contact: good eye contact Results & Data ([facility]) Vital Signs (Past 12 Hours) Vital Signs Temp Pulse Pulse Resp BP Pulse Ox 07/01/21 04:00 36.4 C L 85 24 170/87 H 93 07/01/21 00:10 36.9 C 82 24 148/64 H 92 07/01/21 00:00 70 Laboratory Results 07/01/21 07/01/21 06/30/21 Range/Units 07:30 05:26 20:15 Sodium 145 (136-145) mmol/L Potassium 2.7 L D (3.5-5.1) mmol/L Chloride 108 H (98-107) mmol/L Carbon Dioxide 34 H (21-32) mmol/L Anion Gap 3.0 (3-11) BUN 16 (7-18) mg/dl Creatinine 0.58 L (0.6-1.2) mg/dl Est Cr Clr Drug Dosing 73.5 ml/min Est GFR ( Amer) 99.5 ml/min Est GFR (Non-Af Amer) 85.8 ml/min BUN/Creatinine Ratio 28.0 H (10-20) Glucose 89 (70-99) mg/dl POC Glucose 97 102 H (70-99) mg/dl Calcium 8.1 L (8.5-10.1) mg/dl Phosphorus 2.8 (2.5-4.9) mg/dl Magnesium 1.6 L (1.8-2.4) mg/dl Total Bilirubin 0.6 (0.2-1) mg/dl AST 11 L (15-37) U/L ALT 12 (12-78) U/L Alkaline Phosphatase 33 L (45-117) U/L Triglycerides 118 (0-150) mg/dl 06/30/21 06/30/21 Range/Units 16:17 11:42 Sodium (136-145) mmol/L Potassium (3.5-5.1) mmol/L Chloride (98-107) mmol/L Carbon Dioxide (21-32) mmol/L Anion Gap (3-11) BUN (7-18) mg/dl Creatinine (0.6-1.2) mg/dl Est Cr Clr Drug Dosing ml/min Est GFR ( Amer) ml/min Est GFR (Non-Af Amer) ml/min BUN/Creatinine Ratio (10-20) Glucose (70-99) mg/dl POC Glucose 96 139 H (70-99) mg/dl Calcium (8.5-10.1) mg/dl Phosphorus (2.5-4.9) mg/dl Magnesium (1.8-2.4) mg/dl Total Bilirubin (0.2-1) mg/dl AST (15-37) U/L ALT (12-78) U/L Alkaline Phosphatase (45-117) U/L Triglycerides (0-150) mg/dl
[2021-07-01] MEDS: INSULIN ASPART 100 UNITS/ML 3 ML PEN SC SCH ×4 (09:27→21:30)
[2021-07-01] MEDS: POTASSIUM CHLORIDE / WTR 10 MEQ/100 ML PLCT IV SCH ×4 (09:28→12:54)
[2021-07-01] MEDS: POLYETHYLENE (MIRALAX) 17 GM PACK PO SCH (09:29)
[2021-07-01] MEDS: FUROSEMIDE 40 MG/4 ML VIAL IV SCH (09:31)
[2021-07-01] MEDS: MAGNESIUM OXIDE 400 MG TAB PO SCH (09:31)
--- NOTE | 2021-07-01 11:12 | Gastroenterology Progress Note ---
Date of Service July 01, 2021 Assessment & Plan (1) Gastric ulcer: Plan: Ischemic gastritis (volvulus? PE hernia?) CT with a 6 cm periesophageal fluid collection ? Secondary to walled off perforation Full liquids p.o. Continue broad spectrum antibiotics. Twice daily p.o. PPI. Eventual outpatient EUS drainage in the next few weeks. Admission and Anticipated Discharge Date Admission Date: June 10, 2021 Supervising Physician Co-Signing Physician Notes Attg add: I interviewed and examined pt, reviewed chart and labs. Pt without complaint -- she is tolerating full liquids, no n/v. Denies abd pain. On exam, her abdomen remains completely benign. Will cont full liquids, and adv to solids over next 2 days if pt is well, cont BID PPi. Will request calorie count and check albumin in am. Cont abx for empiric 2 week course - would ask hospitalist servcie to consider ID consult to help guide duration of abx. She will need repeat CT a/p with IV/oral contrast in 1-2 weeks to re-assess fluid collection. Pulmonary toilet, management of large pleural effusions per hospitalist service. Subjective 81 yr old female with recent pancreatitis (last week), GI reconsulted for anemia on Monday 06/25. EGD 06/25 with deep gastric ulcer. Repeat EGD 06/27 with large hiatal hernia with ulcer, Gastric ulcer, evidence of ischemia. Hb 9, stable after a total of 5 units of RBCs. BUN continues to decrease - today normal at 18. Most recent BM small black, yesterday morning. Post EGD CT chest with a 6cm fluid accumulation near the esophagus, distal esophageal wall thickening and large HH. Appears stable this morning. Is alert, oriented, conversational. Sitting up bed. Feeding herself full liquids w/o any CP, SOB, dysphagia or post prandial abdominal discomfort. Physical Exam Constitutional: well developed, + ill appearing, + obese and cooperative Eyes: PERRL, conjunctivae normal, anicteric sclerae Neck: trachea midline, no thyromegaly Respiratory: normal respiratory effort, lungs clear to auscultation Cardiovascular: Rate/Rhythm: regular rate and regular rhythm Skin: no rashes, warm and dry normal turgor and + pallor Neurologic: PERRL, EOMI, accommodation nl, no face palsy, no dysarthria awake; not confused Psychiatric: A+Ox3, euthymic affect Orientation: alert, oriented x 3 and cooperative Results & Data ([facility]) Vital Signs (Past 12 Hours) Vital Signs Temp Pulse Pulse Resp BP Pulse Ox 07/01/21 04:00 36.4 C L 85 24 170/87 H 93 07/01/21 00:10 36.9 C 82 24 148/64 H 92 07/01/21 00:00 70 Laboratory Results Sodium 145, K2.7, CL 108, CO2 34, BUN 16, CR 0.5, glucose 89 Diagnostic Findings CTAP w IV/ORAL 06/29/21: 1. Distal esophageal wall thickening with large hiatal hernia. Inflammatory stranding surrounding the hernia is noted along with a peripherally enhancing 6.0 x 3.4 cm fluid collection along the right lateral aspect. Loculated fluid versus a contained perforation considered. No pneumoperitoneum. 2. Mild wall thickening of the distal gastric body with associated surgical clips and mild perigastric inflammatory stranding. 3. Findings suggestive of mild acute pancreatitis redemonstrated. 4. No bowel obstruction. 5. Unchanged size of the acute left rectus sheath hematoma measuring up to 6 cm in length, new from 06/10/2021. 6. Moderate pleural effusions with anasarca.
[2021-07-01] MEDS ORDERED: POTASSIUM PHOSPHATE 15 MMOL in SODIUM CHLORIDE 0.9% 250 ML IV ONE (12:00)
[2021-07-01] MEDS: MAGNESIUM SULFATE / D5W 1 GM/100 ML BAG IV SCH ×2 (12:17→14:50)
[2021-07-01] MEDS: ACETAMINOPHEN 325 MG TAB PO PRN (18:31)
[2021-07-01 18:38] LABS: Phosphorus 3.4 mg/dl (2.5-4.9)
[2021-07-01 20:07] LABS: Potassium 3.4 mmol/L (3.5-5.1)
[2021-07-01] MEDS: MELATONIN 3 MG TAB PO SCH (20:11)
[2021-07-01] MEDS: OLANZapine ZYDIS 5 MG ORALLY DIS. TAB PO SCH (20:12)
--- NOTE | 2021-07-01 22:11 | Hospitalist Progress Note ---
Date of Service July 01, 2021 Assessment & Plan (1) Sepsis with acute respiratory failure and septic shock: Plan: This patient is an 81 y/o WF with a PMHx of Hypothyroidism and recurrent pancreatitis admitted 06/10 with acute pancreatitis (Lipase [id number])-- recurrent issues without obvious cause, suspected idiopathic pancreatitis versus autoimmune-daughter reports that this is patient's 12th episode of pancreatitis in her lifetime Treatment of pancreatitis as below - seen by GI early on in the course of admission and plan was for EUS as OP with Dr. Mclain - Patient did not tolerate clear liquids initially- had increased pain and nausea with multiple bouts of emesis which led to aspiration pneumonitis, hypoxia, as well as rapid atrial fibrillation and profound hypotension requiring emergent DC cardioversion, placement on vasopressors and IV amiodarone, and emergent intubation and was transferred to the ICU on the night of 06/11 -Chest x-ray consistent with aspiration pneumonia and she had bronchoscopy to clear out the lungs by pulmonology- Acute respiratory failure with hypoxia secondary to ARDS plus some volume overload -Was then weaned off all vasopressors and weaned off IV hydrocortisone - Blood cultures x2 positive.1x Enterococcus faecalis and 2x coag negative staph. Sensitivities different between STAFF RADIOGRAPHER/S epi. ID consulted. - Discussed w/ pharmacy. Given 2x pos culture + and uptrending WBC treated with Vanc, no improvement in WBC, TTE- as noted, switched to Unasyn as noted. - Procalcitonin peaked at 60 downtrended. - Pulmonary toilet, bowel regimen, continue to follow and antibiotics as otherwise noted - Repeat UA on 06/20 - for infection, and repeat chest x-ray 06/20 shows persistent pneumonia and atelectasis. KUB shows moderate to severe amount of stool burden but no obstruction. remains afebrile. - Abx Course: Cefepime/Flagyl x5 dayss --> Zosyn x3 days with improvement --> Unasyn. Uptrending wbc and 2x + BC as above, vanco started 06/21 --> Unasyn 06/25 - Surveillance cultures drawn. -Echocardiogram performed earlier this admission without evidence of vegetation on the valves, but this was prior to culture positivity Repeat TTE 06/24/21: Normal LV size with EF greater than 70%, hyperdynamic, moderate left atrial dilation, mild right atrial dilation, sclerotic aortic valve without stenosis, mild to moderate tricuspid regurg, normal estimated right ventricular systolic pressure. Compared to prior study right ventricular systolic pressure has improved. 06/24/21-06/25/21: Initially to downgrade to Ampicillin, Unasyn selected for GI coverage 2/2 bleeding. Will require 14 days of amp coverage minimum from - , consider enteric coverage based on clinical improvement with Unasyn and residual WBC on Vanco - Leukocytosis persists, improving while on Unasyn. Constipation improved, anemia following melana as noted below. ?Biliary sludge -Follow CBC, CMP -Asked nurse to continue to mobilize patient out of bed to chair, encourage use of incentive spirometer -Continue to work on bowel regimen for severe constipation On 06/29, will transfer out of ICU. Rpeated CT scan: Inflammatory stranding surrounding the hernia is noted along with a peripherally enhancing 6.0 x 3.4 cm fluid collection along the right lateral aspect. Loculated fluid versus a contained perforation considered. No pneumoperitoneum Will see if radiology can do an intervention to remove that fluid. will monitor for GI bleed. patient may need to be transferred to tertiary center for surgery/IR. on 08/[address] patient on PPN to help with her nutrition. This was delayed due to electrolyte abnormalities. Will replenish potassium and phos. will recheck in AM. (2) Anemia: Plan: 06/25 morning patient with large bowel movement, followed by acute hemoglobin drop from 10.0-6.9. Repeat hemoglobin 6.3 Patient ordered 2 units packed red blood cells for transfusion. Pt kris appropriately to 8.7 06/25: active bleeding on exam, no initial AM melena, BUN acutely elevated from 23-53. Large melanic BM in PM. Seen by GI, large gastric ulcer nonbleeding with clot present. 5x clips placed. Post-op drop to 7.4, trended 06/27: Patient with acute hemoglobin drop overnight from 7.3-5.2, transfused with 3 units with appropriate rise in posttransfusion hemoglobin. GI reconsulted, pending evaluation. Blood pressure initially hypotensive, 115/51 following transfusion without tachycardia. Morning metoprolol had been held for hypotension. - Continue PPI IV for 72 hours Eliquis held. Discussed clot vs bleeding risk with pt at bedside - Patient will be on Strict NPO on 06/28 -start a clear diet on 06/29 -hemoglobin has been stable, (3) Encephalopathy acute: Plan: Improved, not yet at baseline but improving Patient with anxiety/agitation and self extubated while in ICU Initially on Precedex drip, was minimally interactive and improved 06/16 and 06/17 with Narcan. 06/18 did well, 06/19 required IV Haldol due to active directory systems administrator attempts to get out of bed repeatedly with difficult redirecting which improved during daytime, and 06 20 did well through the night with an evening dose of Zyprexa. Suspect acute encephalopathy due to aspiration pneumonia with additional hospital delirium 06/17 CTH: No acute findings EEG without epileptiform activity, mild encephalopathy during admission Continue pneumonia/sepsis and constipation treatment as otherwise noted Passed speech evaluation for minced and moist Tolerating p.o. well Continue at bedtime Zyprexa (4) Atrial fibrillation with RVR: Plan: - Likely sepsis-driven due to catecholamine release -TTE: Hyperdynamic LV, severe LVH, elevated RVSP at 50-60 mmHg -With profound hypotension as above associated with rapid atrial fibrillation requiring urgent DC cardioversion earlier in her hospital stay and then again requiring phenylephrine. Pressors d/merissa -Amiodarone drip converted to p.o. amiodarone 200 mg once daily Eliquis as noted Remains in sinus rhythm, although with frequent ectopy Continue Toprol 75 mg twice daily, hold for hypotension see above under anemia Optimize potassium, magnesium (5) Hypothyroid: Plan: TSH here normal at 1.9 Continue levothyroxine (6) Hypernatremia: Plan: -Improved following D5W infusion and encouragement of free water Normalized, 144 on 06/21 -Encourage p.o. intake of free water - Follow BMP (7) Acute pancreatitis: Plan: With a history of recurrent pancreatitis x12. Has not had an episode in about 2 years Previously had gallbladder sludge but patient had declined to have cholecystectomy several years ago -Gallbladder ultrasound here again with gallbladder sludge - Pt tx with extensive abx as above, and continued to have residual WBC count on Vanco monotherapy which quickly dropped with Unasyn tx. ?GB involvement and need for enteric coverage - She had EUS which showed pancreatic head cyst in 2018 but then did not return for follow-up EUS at [place] as planned 1 year later. -CT of A/P: pancreatitis without cyst/pseudocyst and ductal dilation - LFT's initially WNL and then only mild elevation in AST after that, total bilirubin normal - MRCP: pancreatitis without cyst/pseudocyst/abscess or ductal dilation - Triglyceride level WNL: 28 -No evidence of hypercalcemia - Patient does not drink ETOH-confirmed with family - Gi: idiopathic versus autoimmune vs related to cyst? Possibly secondary to gallbladder sludge - Also had pancreatic cyst seen on EUS in 2018-this needs repeat EUS for follow- up in 4 weeks after discharge Patient without abdominal pain, tenderness 06/20 and 06/21 - GI saw patient here and plans for outpatient EUS 1 month after discharge (8) Hiatal hernia: Plan: Large hiatal hernia with approximately half the stomach located in the thoracic cavity noted on CT abdomen/pelvis-this puts her at increased risk for aspiration On IV Protonix earlier in admission, converted to lansoprazole 06/25 acute anemia with rise in BUN? Blood loss, patient made n.p.o. and placed back on PPI drip (9) Aspiration pneumonia: Plan: -As above, gradually downtrending oxygen requirements, mentation improving, on 2 L 06/25 -Chest x-ray with left lower lobe collapse and pleural effusion but slightly improved from previous -Pro-Sanjay initially elevated, down trended, repeat pending -Leukocytosis as noted above -With positive blood cultures as above -Initially on cefepime and metronidazole x5 days, then improved more after starting IV Zosyn x3 days, now narrowed down to Unasyn on 06/19-last day of treatment for pneumonia will be 06/23. Patient completed 8 days of anaerobe coverage respiration pneumonia, but requires ongoing treatment as above. Blood cultures positive in multiple sets for staph epidermidis -Monitor chest x-ray and oxygenation-repeat chest x-ray 06/20 similar to slightly improved aeration on the left -Initially had NG tube for enteral feeds-discontinued this on 06/20 -Speech therapy seen and cleared for minced and moist diet, thin liquids with no straws -Continue incentive spirometry and flutter valve as tolerated -Aspiration precautions (10) CRUZ (acute kidney injury): Plan: With creatinine elevated to 1.68 at peak and normalized Likely secondary to ATN from hypotension and septic shock BMP daily, continue to follow (11) Fever: Plan: As above, now resolved (12) Hypercholesterolemia: Plan: Holding home krill oil (13) Hypertension: Plan: With hypotension as above now while in atrial fibrillation which is now resolved, became hypertensive in a sinus rhythm Now on metoprolol for previous rapid atrial fibrillation. Metoprolol increased as above. Not on medications at home for this (14) Macrocytosis: Plan: B12 and folate normal No history of alcohol use Synthetic liver function seems normal Question if has early MDS? Follow as an outpatient (15) Septicemia: Plan: As above with positive blood cultures See ID recommendations above (16) Hypophosphatemia: Plan: -Repeat pending (17) Edema: Plan: - Previously with anasarca but intravascularly volume depleted with hyper natremia. IMproving. -Resume diuretics as tolerated by blood pressure -Improve nutrition and albumin (18) Sacral decubitus ulcer, stage III: Plan: continue wound care, compressive dressing, rotate in bed, out of bed to chair as tolerated Plan: DVT prophylaxis Eliquis as noted, held 06/25 for bleeding Admission and Anticipated Discharge Date Admission Date: June 10, 2021 Subjective Patient reports hvaing more enegery. She ate all of her meals. Review of Systems Review of Systems: All systems reviewed & are unremarkable except as noted in HPI & below Physical Exam Physical Exam: General: A&Ox3. NAD. Cooperative. HEENT: Atraumatic, normocephalic. Visual acuity and hearing grossly intact. Pupils equal and reactive to light. Pulm: Moderate air movement, -wheezes, -rales, -rhonchi. Symmetrical chest rise. No increase work of breathing. No respiratory distress. On 2 L nasal cannula. Cardiac: RRR, -mrg. Radial pulses intact and symmetrical. Abdominal: Nontender, nondistended, soft. BS present. Skin: Posterior sacral ulcer with foam dressing intact, patient endorses pain at this, improved with positional changes. Extremities: Right clavicular birthmark present. Radial pulse and PT pulses intact and symmetrical. Moves all extremities equally. Results & Data Results & Data ([facility]) Vital Signs (Past 12 Hours) Vital Signs Temp Pulse Pulse Resp BP Pulse Ox 07/01/21 20:08 36.5 C 66 19 187/78 H 93 07/01/21 16:00 76 07/01/21 15:36 36.3 C L 72 21 163/87 H 95 07/01/21 12:00 36.6 C 61 16 116/64 92 07/01/21 11:53 36.5 C 80 22 163/85 H 94 PG Care Time/CCT Total # of Minutes Spent Total Time Spent with Patient: Total time spent is greater than 50% in coordination of care (as documented) at patient's floor/unit and/or counseling patient: Coding Level of Care Code 79679 Subseq Hosp Care Lvl 2 Diagnoses Sepsis with acute respiratory failure and septic shock A41.9; R65.21; J96.00 Anemia D64.9 Encephalopathy acute G93.40 Atrial fibrillation with RVR I48.91 Hypothyroid E03.9 Hypernatremia E87.0 Acute pancreatitis K85.90 Acute pancreatitis complication: unspecified Pancreatitis type: unspecified pancreatitis type Hiatal hernia K44.9 Aspiration pneumonia J69.0 CRUZ (acute kidney injury) N17.9 Fever R50.9 Hypercholesterolemia E78.00 Hypertension I10 Hypertension type: essential hypertension Macrocytosis D75.89 Septicemia A41.9 Hypophosphatemia E83.39 Edema R60.9 Sacral decubitus ulcer, stage III L89.153 (1) Hypertension Hypertension type: essential hypertension Qualified Code(s): I10 - Essential (primary) hypertension (2) Acute pancreatitis Acute pancreatitis complication: unspecified Pancreatitis type: unspecified pancreatitis type Qualified Code(s): K85.90 - Acute pancreatitis without necrosis or infection, unspecified
[2021-07-02] MEDS: AMPICILLIN/SULBACTAM SOD 3,000 MG in 0.9 % SODIUM CHLORIDE 100 ML IV SCH ×4 (01:13→20:21)
[2021-07-02 05:41] LABS: Basophils # (auto) 0.03 K/uL (0-0.2); Basophils % (auto) 0.6 %; Eosinophils # (auto) 0.09 K/uL (0-0.5); Eosinophils % (auto) 1.8 %; Hematocrit (blood only) 30.1 % (37-47); Hemoglobin 9.5 g/dL (12.0-16.0); Immature Granulocytes # (auto) 0.03 K/uL (0.00-0.02); Immature Granulocytes % (auto) 0.6 %; Lymphocytes # (auto) 0.63 K/uL (1.2-3.4); Lymphocytes % (auto) 12.5 %; Mean Corpuscular Hemoglobin 31.3 pg (25-34); Mean Corpuscular Hgb Conc 31.6 g/dL (32-36); Mean Platelet Volume 8.7 fL (7.4-10.4); Monocytes % (auto) 7.9 %; Neutrophils # (auto) 3.87 K/uL (1.4-6.5); Neutrophils % (auto) 76.6 %; Platelet Count 384 K/uL (130-400); RDW Coefficient of Variation 16.9 % (11.5-14.5); RDW Standard Deviation 57.7 fL (36.4-46.3); Red Blood Count 3.04 M/uL (4.2-5.4); White Blood Count 5.05 K/uL (4.8-10.8)
[2021-07-02] MEDS: LEVOTHYROXINE SODIUM 88 MCG TABLET PO SCH (06:03)
[2021-07-02 06:11] LABS: Albumin Level 1.7 gm/dl (3.4-5.0); Calcium 8.2 mg/dl (8.5-10.1); Creatinine Clr Calc Pharmacy 74.2 ml/min; Est GFR (African American) 99.5 ml/min; Est GFR (Non-African American) 85.8 ml/min; Potassium 2.9 mmol/L (3.5-5.1)
[2021-07-02] MEDS: POTASSIUM CHLORIDE / WTR 10 MEQ/100 ML PLCT IV SCH ×4 (08:03→12:23)
[2021-07-02] MEDS: POTASSIUM CHLORIDE CRTAB 20 MEQ TABCR PO SCH ×2 (08:04→21:47)
[2021-07-02] MEDS: ASCORBIC ACID 500 MG TAB PO SCH (08:05)
[2021-07-02] MEDS: SUCRALFATE 1 GM/10 ML UDC PO SCH ×4 (08:05→21:44)
[2021-07-02] MEDS: THIAMINE HCL 100 MG TAB PO SCH (08:05)
[2021-07-02] MEDS: CYANOCOBALAMIN 500 MCG TABLET (VITAMIN B-12) PO SCH (08:05)
[2021-07-02] MEDS: CHOLECALCIFEROL 1,000 UNITS 25 MCG TAB PO SCH (08:05)
[2021-07-02] MEDS: PANTOprazole 40 MG TAB PO SCH ×2 (08:06→21:46)
[2021-07-02] MEDS: MULTI VIT W/MINERALS LIQUID 15 ML UDP PO SCH (08:06)
[2021-07-02] MEDS: AMIODARONE 200 MG TAB PO SCH (08:06)
[2021-07-02] MEDS: MAGNESIUM OXIDE 400 MG TAB PO SCH (08:10)
[2021-07-02] MEDS: POLYETHYLENE (MIRALAX) 17 GM PACK PO SCH (08:10)
[2021-07-02] MEDS: FUROSEMIDE 40 MG/4 ML VIAL IV SCH (08:10)
[2021-07-02] MEDS: INSULIN ASPART 100 UNITS/ML 3 ML PEN SC SCH ×4 (08:26→21:39)
[2021-07-02 08:28] LABS: Phosphorus 3.2 mg/dl (2.5-4.9)
[2021-07-02] MEDS: PHENAZOPYRIDINE HCL 200 MG TAB PO SCH ×3 (08:34→21:46)
--- NOTE | 2021-07-02 09:19 | Surgery Progress Note ---
Date of Service July 02, 2021 Assessment & Plan (1) Gastric ulcer: (2) Anemia: (3) Recurrent pancreatitis: Plan: 81 year-old female who was initially admitted to hospital with recurrent pancreatitis and subsequently developed aspiration pneumonia, ARDS requiring intubation, and now acute GI bleed with blood loss anemia and upper endoscopy showing large hiatal hernia with deep bleeding gastric ulcerations as cause of her GI bleed. Repeat endoscopy 06/27/21 showing no active bleeding but retained old blood and ischemic findings. CTA of chest/abdomen/and pelvis 06/27/21 with no evidence of gastric perforation or ischemia. Hemoglobin: 8.5 --> 9.1 --> 8.5 --> 8.5 --> 9.0 s/p 5 units of PRBCs Abdomen is soft, nondistended, and nontender on exam. repeat CT scan of abdomen and pelvis with IV and oral contrast on 06/29/21 showing 6.0 x 3.4 cm loculated fluid collection in chest at lateral aspect of stomach which could be contained perforation. 07/02/21: Hemoglobin 9.5 vss tolerating clear liquids, diet being advanced to full liquids for lunch. Plan: No surgical intervention recommended at this time. If she were to need surgical intervention she would need transferred to tertiary center with multidisciplinary team available. Diet advancement per GI and medicine service. Continue boost supplementation BID Continue PPI BID replace potassium OUr services singing off, please call with questions or concerns. Dr. Browne has seen patient, agrees with above. Admission and Anticipated Discharge Date Admission Date: June 10, 2021 Subjective woke up with urinary tract infection, pain with urination no abdominal pain, n, v tolerated clear liquids all day yesterday without pain, n/v drinking boost, bringing in different version with less carbs diet being advanced to full liquids for lunch Physical Exam Constitutional: cooperative and + overweight; no acute distress and not ill appearing Respiratory: normal respiratory effort; no respiratory distress, no labored breathing and no retractions Gastrointestinal (Abdomen): Inspection/Auscultation: abdomen normal to inspection and + hypoactive bowel sounds; abdomen not distended and + abnormal bowel sounds Percussion/Palpation: abdomen soft; abdomen nontender, no guarding and abdomen not rigid Skin: no rashes, warm and dry Psychiatric: Orientation: alert and oriented x 3 Affect: + depressed affect Results & Data ([place]) Vital Signs (Past 12 Hours) Vital Signs Temp Pulse Pulse Pulse Resp BP Pulse Ox 07/02/21 04:57 36.5 C 90 20 174/78 H 100 07/01/21 23:16 78 07/01/21 23:08 88 20 177/76 H 99 Laboratory Results 07/02/21 07/02/21 07/02/21 Range/Units 07:39 04:57 04:57 WBC (4.8-10.8) K/uL RBC (4.2-5.4) M/uL Hgb (12.0-16.0) g/dL Hct (37-47) % MCV (80-100) fL MCH (25-34) pg MCHC (32-36) g/dL RDW Std Deviation (36.4-46.3) fL RDW Coeff of Estrell[place] (11.5-14.5) % Plt Count (130-400) K/uL MPV (7.4-10.4) fL Immature Gran % (Auto) % Neut % (Auto) % Lymph % (Auto) % [place] % (Auto) % Eos % (Auto) % Baso % (Auto) % Neut # (Auto) (1.4-6.5) K/uL Lymph # (Auto) (1.2-3.4) K/uL [place] # (Auto) (0.11-0.59) K/uL Eos # (Auto) (0-0.5) K/uL Baso # (Auto) (0-0.2) K/uL Immature Gran # (Auto) (0.00-0.02) K/uL Sodium 145 (136-145) mmol/L Potassium 2.9 L (3.5-5.1) mmol/L Chloride 106 (98-107) mmol/L Carbon Dioxide 34 H (21-32) mmol/L Anion Gap 5.0 (3-11) BUN 14 (7-18) mg/dl Creatinine 0.58 L (0.6-1.2) mg/dl Est Cr Clr Drug Dosing 74.2 ml/min Est GFR ( Amer) 99.5 ml/min Est GFR (Non-Af Amer) 85.8 ml/min BUN/Creatinine Ratio 25.0 H (10-20) Glucose 94 (70-99) mg/dl POC Glucose 91 (70-99) mg/dl Calcium 8.2 L (8.5-10.1) mg/dl Phosphorus 3.2 (2.5-4.9) mg/dl Magnesium 2.0 (1.8-2.4) mg/dl Albumin 1.7 L (3.4-5.0) gm/dl 07/02/21 07/01/21 07/01/21 Range/Units 04:57 21:21 17:56 WBC 5.05 (4.8-10.8) K/uL RBC 3.04 L (4.2-5.4) M/uL Hgb 9.5 L (12.0-16.0) g/dL Hct 30.1 L (37-47) % MCV 99.0 (80-100) fL MCH 31.3 (25-34) pg MCHC 31.6 L (32-36) g/dL RDW Std Deviation 57.7 H (36.4-46.3) fL RDW Coeff of Estrellita 16.9 H (11.5-14.5) % Plt Count 384 (130-400) K/uL MPV 8.7 (7.4-10.4) fL Immature Gran % (Auto) 0.6 % Neut % (Auto) 76.6 % Lymph % (Auto) 12.5 % [place] % (Auto) 7.9 % Eos % (Auto) 1.8 % Baso % (Auto) 0.6 % Neut # (Auto) 3.87 (1.4-6.5) K/uL Lymph # (Auto) 0.63 L (1.2-3.4) K/uL [place] # (Auto) 0.40 (0.11-0.59) K/uL Eos # (Auto) 0.09 (0-0.5) K/uL Baso # (Auto) 0.03 (0-0.2) K/uL Immature Gran # (Auto) 0.03 H (0.00-0.02) K/uL Sodium (136-145) mmol/L Potassium 3.4 L D (3.5-5.1) mmol/L Chloride (98-107) mmol/L Carbon Dioxide (21-32) mmol/L Anion Gap (3-11) BUN (7-18) mg/dl Creatinine (0.6-1.2) mg/dl Est Cr Clr Drug Dosing ml/min Est GFR ( Amer) ml/min Est GFR (Non-Af Amer) ml/min BUN/Creatinine Ratio (10-20) Glucose (70-99) mg/dl POC Glucose 98 (70-99) mg/dl Calcium (8.5-10.1) mg/dl Phosphorus 3.4 (2.5-4.9) mg/dl Magnesium 2.0 (1.8-2.4) mg/dl Albumin (3.4-5.0) gm/dl 07/01/21 07/01/21 Range/Units 16:24 11:40 WBC (4.8-10.8) K/uL RBC (4.2-5.4) M/uL Hgb (12.0-16.0) g/dL Hct (37-47) % MCV (80-100) fL MCH (25-34) pg MCHC (32-36) g/dL RDW Std Deviation (36.4-46.3) fL RDW Coeff of Estrellita (11.5-14.5) % Plt Count (130-400) K/uL MPV (7.4-10.4) fL Immature Gran % (Auto) % Neut % (Auto) % Lymph % (Auto) % [place] % (Auto) % Eos % (Auto) % Baso % (Auto) % Neut # (Auto) (1.4-6.5) K/uL Lymph # (Auto) (1.2-3.4) K/uL [place] # (Auto) (0.11-0.59) K/uL Eos # (Auto) (0-0.5) K/uL Baso # (Auto) (0-0.2) K/uL Immature Gran # (Auto) (0.00-0.02) K/uL Sodium (136-145) mmol/L Potassium (3.5-5.1) mmol/L Chloride (98-107) mmol/L Carbon Dioxide (21-32) mmol/L Anion Gap (3-11) BUN (7-18) mg/dl Creatinine (0.6-1.2) mg/dl Est Cr Clr Drug Dosing ml/min Est GFR ( Amer) ml/min Est GFR (Non-Af Amer) ml/min BUN/Creatinine Ratio (10-20) Glucose (70-99) mg/dl POC Glucose 106 H 94 (70-99) mg/dl Calcium (8.5-10.1) mg/dl Phosphorus (2.5-4.9) mg/dl Magnesium (1.8-2.4) mg/dl Albumin (3.4-5.0) gm/dl
--- NOTE | 2021-07-02 09:55 | Gastroenterology Progress Note ---
Date of Service July 02, 2021 Assessment & Plan (1) Gastric ulcer: Plan: Ischemic gastritis (volvulus? PE hernia?) CT with a 6 cm periesophageal fluid collection likely a walled off perforation Soft diet Continue broad spectrum antibiotics x 2 more weeks - or ID consult to ask appropriate duration. BID PPI. Eventual outpatient EUS in 4 wks for f/u pancreatitis and possibly drain the maxx-esophageal fluid collection. GI will sign off. Please call us if new/worsening GI issues. Admission and Anticipated Discharge Date Admission Date: June 10, 2021 Supervising Physician Co-Signing Physician Notes I performed a history and physical examination of the patient today, including specifically on physical exam - soft abdomen. I have discussed the patient's management with the advanced practitioner. Please refer to the nurse practitioner's note for the documented findings and plan of care. Doing well, no abdominal pain or vomiting. Continue PPI and full liquids for now. EGD/EUS in 4 weeks as OP. Recall GI if needed. Subjective 81 yr old female with recent pancreatitis, then GI bleed. EGD 06/25 with deep gastric ulcer. Repeat EGD 06/27 with large hiatal hernia with ulcer, Gastric ulcer, evidence of ischemia. Hb 9.5, stable after a total of 5 units of RBCs. BUN 14. Most recent BM 3 days ago, small/black. On a full liquid diet. Review of Systems Review of Systems: ROS: Gen: + weakness, No fevers, weight loss Eyes: No eye redness, or pain, no recent vision changes Resp: No SOB, no cough Cardio: + some tachycardia, No chest pain GI: See HPI; No abdominal pain, no nausea/vomiting : Denies pain on urination Skin: No jaundice, itching or new rash Ext: minimal lower leg edema Physical Exam Constitutional: well developed, + ill appearing, + obese and cooperative Eyes: PERRL, conjunctivae normal, anicteric sclerae ENMT: external ear and nose normal, oropharynx normal Neck: trachea midline, no thyromegaly Respiratory: normal respiratory effort, lungs clear to auscultation Cardiovascular: RRR, no murmur, no edema Rate/Rhythm: regular rate and regular rhythm Gastrointestinal (Abdomen): normal bowel sounds, soft, nontender, no hepatosplenomegaly Inspection/Auscultation: abdomen normal to inspection and + hypoactive bowel sounds; abdomen not distended Percussion/Palpation: abdomen soft; abdomen nontender Skin: no rashes, warm and dry normal turgor and + pallor Neurologic: PERRL, EOMI, accommodation nl, no face palsy, no dysarthria awake; not confused Psychiatric: A+Ox3, euthymic affect Orientation: alert, oriented x 3 and cooperative Lymphatic: no cervical or axillary lymphadenopathy Results & Data ([facility]) Vital Signs (Past 12 Hours) Vital Signs Temp Pulse Pulse Pulse Resp BP Pulse Ox 07/02/21 04:57 36.5 C 90 20 174/78 H 100 07/01/21 23:16 78 07/01/21 23:08 88 20 177/76 H 99 Laboratory Results WBC 5,WBC 5, Hb 9.5, Hct 30, Plts 384, Na 145, K 2.9, BUN 14, Cr 0.58, glucose 94 Diagnostic Findings CTAP IV oral 04/29/21: 1. Distal esophageal wall thickening with large hiatal hernia. Inflammatory stranding surrounding the hernia is noted along with a peripherally enhancing 6.0 x 3.4 cm fluid collection along the right lateral aspect. Loculated fluid versus a contained perforation considered. No pneumoperitoneum. 2. Mild wall thickening of the distal gastric body with associated surgical clips and mild perigastric inflammatory stranding. 3. Findings suggestive of mild acute pancreatitis redemonstrated. 4. No bowel obstruction. 5. Unchanged size of the acute left rectus sheath hematoma measuring up to 6 cm in length, new from 06/10/2021. 6. Moderate pleural effusions with anasarca.
[2021-07-02 10:38] LABS: Appearance Urine Clear (Clear); Bilirubin Urine Negative (Negative); Blood Urine Negative (Negative); Color Urine Yellow; Glucose Urine UA Negative (Negative); Ketones Urine Negative (Negative); Leukocyte Esterase Urine Negative (Negative); Nitrite Urine Negative (Negative); Protein Urine Negative (Negative); Specific Gravity Urine 1.007 (1.000-1.030); Urobilinogen Urine Negative (Negative)
--- NOTE | 2021-07-02 11:32 | Pharmacy Report ---
Pharmacy PN Initial Consult - Date of Service July 02, 2021 - Scope Pharmacy has been consulted to manage parenteral nutrition orders and order appropriate labs. As part of the Nutrition Support Team guidelines, pharmacy will work in conjunction with dietary when determining the patients caloric needs. - Subjective The patient is a 81 year old F admitted on 06/10/21 21:34 for PANCREATITIS. Patient is to receive parenteral nutrition for prolonged NPO. Pertinent PMH: recent acute pancreatitis, GIB, recent bacteremia - Objective Height: 5 ft Weight: 88.8 kg Intake & Output (Last 24Hrs): Intake & Output 06/30/21 07/01/21 07/02/21 07/03/21 06:59 06:59 06:59 06:59 Intake Total 2310.333 / 2310.333 1494.917 / 7456.110 0937 / 1227 308 / 308 Output Total 576 / 576 802 / 802 2550 / 2550 Balance 1734.333 / 1734.333 692.917 / 692.917 -1323 / -1323 308 / 308 Weight 90.4 kg 87.3 kg 88.8 kg Laboratory Data (Last 24 Hrs):: 07/01/21 07/02/21 07/02/21 17:56 04:57 04:57 Sodium 145 Potassium 3.4 L D 2.9 L Chloride 106 Carbon Dioxide 34 H BUN 14 Creatinine 0.58 L Glucose 94 Calcium 8.2 L Phosphorus 3.4 3.2 Magnesium 2.0 2.0 Albumin 1.7 L Nutrition Assessment:: Please refer to the Notes section of the EMR for the most recent billing coordinator note. - Assessment F: no current mIVF E: hypokalemia (K-2.9); receiving repletion with 40mEq IV K-riders + 20mEQ BID PO N: TG-118, albumin-1.7, glu-91 - Plan For day 1 of PN administration, the following will be ordered: Macronutrients Amino acids 90 grams/day Dextrose 60 grams/day Lipids 30 grams/day Micronutrients Sodium chloride 60 mEq Potassium phosphate 15 mMol Potassium chloride 20 mEq Magnesium sulfate 4.06 mEq Multivitamins 10 mL Trace Elements 1 mL Additional additives: - Total volume 1500 mL to be infused over 24 hrs will provide 894 kcal/day Final osmolarity 885 mOsm/L (maximum for PPN is 900 mOsm/L) Labs to be ordered per PN order protocol Pharmacy will follow and adjust parenteral nutrition orders on a daily basis. Thank you.
[2021-07-02] MEDS ORDERED: Custom Peripheral Pn 1,500 ML in TPN BAG 0 ML IV SCH (16:00)
[2021-07-02] MEDS: MELATONIN 3 MG TAB PO SCH (21:44)
[2021-07-02] MEDS: OLANZapine ZYDIS 5 MG ORALLY DIS. TAB PO SCH (21:45)
--- NOTE | 2021-07-02 22:35 | Hospitalist Progress Note ---
Date of Service July 02, 2021 Assessment & Plan (1) Sepsis with acute respiratory failure and septic shock: Plan: This patient is an 81 y/o WF with a PMHx of Hypothyroidism and recurrent pancreatitis admitted 06/10 with acute pancreatitis (Lipase 7778)-- recurrent issues without obvious cause, suspected idiopathic pancreatitis versus autoimmune-daughter reports that this is patient's 12th episode of pancreatitis in her lifetime Treatment of pancreatitis as below - seen by GI early on in the course of admission and plan was for EUS as OP with Dr. Mclain - Patient did not tolerate clear liquids initially- had increased pain and nausea with multiple bouts of emesis which led to aspiration pneumonitis, hypoxia, as well as rapid atrial fibrillation and profound hypotension requiring emergent DC cardioversion, placement on vasopressors and IV amiodarone, and emergent intubation and was transferred to the ICU on the night of 06/11 -Chest x-ray consistent with aspiration pneumonia and she had bronchoscopy to clear out the lungs by pulmonology- Acute respiratory failure with hypoxia secondary to ARDS plus some volume overload -Was then weaned off all vasopressors and weaned off IV hydrocortisone - Blood cultures x2 positive.1x Enterococcus faecalis and 2x coag negative staph. 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 ID consulted. - Discussed w/ pharmacy. Given 2x pos culture + and uptrending WBC treated with Vanc, no improvement in WBC, TTE- as noted, switched to Unasyn as noted. - Procalcitonin peaked at 60 downtrended. - Pulmonary toilet, bowel regimen, continue to follow and antibiotics as otherwise noted - Repeat UA on 06/20 - for infection, and repeat chest x-ray 06/20 shows persistent pneumonia and atelectasis. KUB shows moderate to severe amount of stool burden but no obstruction. remains afebrile. - Abx Course: Cefepime/Flagyl x5 dayss --> Zosyn x3 days with improvement --> Unasyn. Uptrending wbc and 2x + BC as above, vanco started 06/21 --> Unasyn 06/25 - Surveillance cultures drawn. -Echocardiogram performed earlier this admission without evidence of vegetation on the valves, but this was prior to culture positivity Repeat TTE 06/24/21: Normal LV size with EF greater than 70%, hyperdynamic, moderate left atrial dilation, mild right atrial dilation, sclerotic aortic valve without stenosis, mild to moderate tricuspid regurg, normal estimated right ventricular systolic pressure. Compared to prior study right ventricular systolic pressure has improved. 06/24/21-06/25/21: Initially to downgrade to Ampicillin, Unasyn selected for GI coverage 2/2 bleeding. Will require 14 days of amp coverage minimum from - , consider enteric coverage based on clinical improvement with Unasyn and residual WBC on Vanco - Leukocytosis persists, improving while on Unasyn. Constipation improved, anemia following melana as noted below. ?Biliary sludge -Follow CBC, CMP -Asked nurse to continue to mobilize patient out of bed to chair, encourage use of incentive spirometer -Continue to work on bowel regimen for severe constipation On 06/29, will transfer out of ICU. Rpeated CT scan: Inflammatory stranding surrounding the hernia is noted along with a peripherally enhancing 6.0 x 3.4 cm fluid collection along the right lateral aspect. Loculated fluid versus a contained perforation considered. No pneumoperitoneum Will see if radiology can do an intervention to remove that fluid. will monitor for GI bleed. patient may need to be transferred to tertiary center for surgery/IR. on 09/01 advanced her to full liquid diet. replenished her electrolytes. will start patient on PPN to help with her nutrition. will recheck electrolytes in AM. (2) Anemia: Plan: 06/25 morning patient with large bowel movement, followed by acute hemoglobin drop from 10.0-6.9. Repeat hemoglobin 6.3 Patient ordered 2 units packed red blood cells for transfusion. Pt kris appropriately to 8.7 06/25: active bleeding on exam, no initial AM melena, BUN acutely elevated from 23-53. Large melanic BM in PM. Seen by GI, large gastric ulcer nonbleeding with clot present. 5x clips placed. Post-op drop to 7.4, trended 06/27: Patient with acute hemoglobin drop overnight from 7.3-5.2, transfused with 3 units with appropriate rise in posttransfusion hemoglobin. GI reconsulted, pending evaluation. Blood pressure initially hypotensive, 115/51 following transfusion without tachycardia. Morning metoprolol had been held for hypotension. - Continue PPI IV for 72 hours Eliquis held. Discussed clot vs bleeding risk with pt at bedside - Patient will be on Strict NPO on 06/28 -start a clear diet on 11/16 -hemoglobin has been stable, (3) Encephalopathy acute: Plan: Improved, not yet at baseline but improving Patient with anxiety/agitation and self extubated while in ICU Initially on Precedex drip, was minimally interactive and improved 06/16 and 06/17 with Narcan. 06/18 did well, 06/19 required IV Haldol due to mines safety engineer attempts to get out of bed repeatedly with difficult redirecting which improved during daytime, and 06 20 did well through the night with an evening dose of Zyprexa. Suspect acute encephalopathy due to aspiration pneumonia with additional hospital delirium 06/17 CTH: No acute findings EEG without epileptiform activity, mild encephalopathy during admission Continue pneumonia/sepsis and constipation treatment as otherwise noted Passed speech evaluation for minced and moist Tolerating p.o. well Continue at bedtime Zyprexa (4) Atrial fibrillation with RVR: Plan: - Likely sepsis-driven due to catecholamine release -TTE: Hyperdynamic LV, severe LVH, elevated RVSP at 50-60 mmHg -With profound hypotension as above associated with rapid atrial fibrillation requiring urgent DC cardioversion earlier in her hospital stay and then again requiring phenylephrine. Pressors d/merissa -Amiodarone drip converted to p.o. amiodarone 200 mg once daily Eliquis as noted Remains in sinus rhythm, although with frequent ectopy Continue Toprol 75 mg twice daily, hold for hypotension see above under anemia Optimize potassium, magnesium (5) Hypothyroid: Plan: TSH here normal at 1.9 Continue levothyroxine (6) Hypernatremia: Plan: -Improved following D5W infusion and encouragement of free water Normalized, 144 on 06/21 -Encourage p.o. intake of free water - Follow BMP (7) Acute pancreatitis: Plan: With a history of recurrent pancreatitis x12. Has not had an episode in about 2 years Previously had gallbladder sludge but patient had declined to have cholecystectomy several years ago -Gallbladder ultrasound here again with gallbladder sludge - Pt tx with extensive abx as above, and continued to have residual WBC count on Vanco monotherapy which quickly dropped with Unasyn tx. ?GB involvement and need for enteric coverage - She had EUS which showed pancreatic head cyst in 2018 but then did not return for follow-up EUS at [place] as planned 1 year later. -CT of A/P: pancreatitis without cyst/pseudocyst and ductal dilation - LFT's initially WNL and then only mild elevation in AST after that, total bilirubin normal - MRCP: pancreatitis without cyst/pseudocyst/abscess or ductal dilation - Triglyceride level WNL: 28 -No evidence of hypercalcemia - Patient does not drink ETOH-confirmed with family - Gi: idiopathic versus autoimmune vs related to cyst? Possibly secondary to gallbladder sludge - Also had pancreatic cyst seen on EUS in 2018-this needs repeat EUS for follow- up in 4 weeks after discharge Patient without abdominal pain, tenderness 06/20 and 06/21 - GI saw patient here and plans for outpatient EUS 1 month after discharge (8) Hiatal hernia: Plan: Large hiatal hernia with approximately half the stomach located in the thoracic cavity noted on CT abdomen/pelvis-this puts her at increased risk for aspiration On IV Protonix earlier in admission, converted to lansoprazole 06/25 acute anemia with rise in BUN? Blood loss, patient made n.p.o. and placed back on PPI drip (9) Aspiration pneumonia: Plan: -As above, gradually downtrending oxygen requirements, mentation improving, on 2 L 06/25 -Chest x-ray with left lower lobe collapse and pleural effusion but slightly improved from previous -Pro-Sanjay initially elevated, down trended, repeat pending -Leukocytosis as noted above -With positive blood cultures as above -Initially on cefepime and metronidazole x5 days, then improved more after starting IV Zosyn x3 days, now narrowed down to Unasyn on 06/19-last day of treatment for pneumonia will be 06/23. Patient completed 8 days of anaerobe coverage respiration pneumonia, but requires ongoing treatment as above. Blood cultures positive in multiple sets for staph epidermidis -Monitor chest x-ray and oxygenation-repeat chest x-ray 06/20 similar to slightly improved aeration on the left -Initially had NG tube for enteral feeds-discontinued this on 06/20 -Speech therapy seen and cleared for minced and moist diet, thin liquids with no straws -Continue incentive spirometry and flutter valve as tolerated -Aspiration precautions (10) CRUZ (acute kidney injury): Plan: With creatinine elevated to 1.68 at peak and normalized Likely secondary to ATN from hypotension and septic shock BMP daily, continue to follow (11) Fever: Plan: As above, now resolved (12) Hypercholesterolemia: Plan: Holding home krill oil (13) Hypertension: Plan: With hypotension as above now while in atrial fibrillation which is now resolved, became hypertensive in a sinus rhythm Now on metoprolol for previous rapid atrial fibrillation. Metoprolol increased as above. Not on medications at home for this (14) Macrocytosis: Plan: B12 and folate normal No history of alcohol use Synthetic liver function seems normal Question if has early MDS? Follow as an outpatient (15) Septicemia: Plan: As above with positive blood cultures See ID recommendations above (16) Hypophosphatemia: Plan: -Repeat pending (17) Edema: Plan: - Previously with anasarca but intravascularly volume depleted with hypernatremia. IMproving. -Resume diuretics as tolerated by blood pressure -Improve nutrition and albumin (18) Sacral decubitus ulcer, stage III: Plan: continue wound care, compressive dressing, rotate in bed, out of bed to chair as tolerated Plan: DVT prophylaxis Eliquis as noted, held 06/25 for bleeding Admission and Anticipated Discharge Date Admission Date: June 10, 2021 Subjective Patient reports no new symptoms Review of Systems Review of Systems: All systems reviewed & are unremarkable except as noted in HPI & below Physical Exam Physical Exam: General: A&Ox3. NAD. Cooperative. HEENT: Atraumatic, normocephalic. Visual acuity and hearing grossly intact. Pupils equal and reactive to light. Pulm: Moderate air movement, -wheezes, -rales, -rhonchi. Symmetrical chest rise. No increase work of breathing. No respiratory distress. On 2 L nasal cannula. Cardiac: RRR, -mrg. Radial pulses intact and symmetrical. Abdominal: Nontender, nondistended, soft. BS present. Skin: Posterior sacral ulcer with foam dressing intact, patient endorses pain at this, improved with positional changes. Extremities: Right clavicular birthmark present. Radial pulse and PT pulses intact and symmetrical. Moves all extremities equally Results & Data Results & Data ([facility]) Vital Signs (Past 12 Hours) Vital Signs Temp Pulse Pulse Pulse Resp BP Pulse Ox 07/02/21 20:00 36.8 C 78 20 160/70 H 95 07/02/21 16:00 37.1 C 78 26 H 139/79 94 07/02/21 15:54 78 07/02/21 12:42 36.4 C L 82 20 165/78 H 94 PG Care Time/CCT Total # of Minutes Spent Total Time Spent with Patient: Total time spent is greater than 50% in coordination of care (as documented) at patient's floor/unit and/or counseling patient: Coding Level of Care Code 23326 Subseq Hosp Care Lvl 2 Diagnoses Sepsis with acute respiratory failure and septic shock A41.9; R65.21; J96.00 Anemia D64.9 Encephalopathy acute G93.40 Atrial fibrillation with RVR I48.91 Hypothyroid E03.9 Hypernatremia E87.0 Acute pancreatitis K85.90 Acute pancreatitis complication: unspecified Pancreatitis type: unspecified pancreatitis type Hiatal hernia K44.9 Aspiration pneumonia J69.0 CRUZ (acute kidney injury) N17.9 Fever R50.9 Hypercholesterolemia E78.00 Hypertension I10 Hypertension type: essential hypertension Macrocytosis D75.89 Septicemia A41.9 Hypophosphatemia E83.39 Edema R60.9 Sacral decubitus ulcer, stage III L89.153 Time Spent (min) 25 (1) Acute pancreatitis Acute pancreatitis complication: unspecified Pancreatitis type: unspecified pancreatitis type Qualified Code(s): K85.90 - Acute pancreatitis without necrosis or infection, unspecified (2) Hypertension Hypertension type: essential hypertension Qualified Code(s): I10 - Essential (primary) hypertension
[2021-07-03] MEDS: AMPICILLIN/SULBACTAM SOD 3,000 MG in 0.9 % SODIUM CHLORIDE 100 ML IV SCH ×2 (01:41→07:40)
[2021-07-03] MEDS: ACETAMINOPHEN 325 MG TAB PO PRN (01:44)
[2021-07-03] MEDS: LEVOTHYROXINE SODIUM 88 MCG TABLET PO SCH (05:06)
[2021-07-03 06:36] LABS: BUN Creatinine Ratio 35.3 (10-20); Calcium 8.2 mg/dl (8.5-10.1); Creatinine Clr Calc Pharmacy 80.1 ml/min; Est GFR (African American) 102.5 ml/min; Est GFR (Non-African American) 88.4 ml/min; Magnesium 1.9 mg/dl (1.8-2.4); Potassium 3.4 mmol/L (3.5-5.1)
[2021-07-03] MEDS: ONDANSETRON INJ 2 MG/ML 2 ML VIAL IV PRN (07:37)
[2021-07-03] MEDS ORDERED: POTASSIUM CHLORIDE 10 MEQ in SODIUM CHLORIDE 0.9% 1000ML 1,000 ML IV SCH (09:00)
[2021-07-03 09:15] LABS: Hematocrit (blood only) 20.3 % (37-47); Hemoglobin 6.5 g/dL (12.0-16.0); Mean Corpuscular Hemoglobin 31.4 pg (25-34); Mean Corpuscular Volume 98.1 fL (80-100); Mean Platelet Volume 8.4 fL (7.4-10.4); Platelet Count 337 K/uL (130-400); RDW Coefficient of Variation 16.1 % (11.5-14.5); RDW Standard Deviation 55.4 fL (36.4-46.3); Red Blood Count 2.07 M/uL (4.2-5.4); White Blood Count 5.19 K/uL (4.8-10.8)
[2021-07-03] MEDS: INSULIN ASPART 100 UNITS/ML 3 ML PEN SC SCH (09:36)
[2021-07-03] MEDS ORDERED: SODIUM CHLORIDE 0.9% 250 ML IV PRN (09:39)
[2021-07-03 09:59] LABS: Basophils # (auto) 0.02 K/uL (0-0.2); Basophils % (auto) 0.4 %; Eosinophils # (auto) 0.11 K/uL (0-0.5); Eosinophils % (auto) 2.1 %; Immature Granulocytes # (auto) 0.03 K/uL (0.00-0.02); Immature Granulocytes % (auto) 0.6 %; Lymphocytes # (auto) 1.02 K/uL (1.2-3.4); Lymphocytes % (auto) 19.7 %; Monocytes # (auto) 0.72 K/uL (0.11-0.59); Monocytes % (auto) 13.9 %; Neutrophils # (auto) 3.29 K/uL (1.4-6.5); Neutrophils % (auto) 63.3 %; RBC Morphology Unremarkable
--- NOTE | 2021-07-03 10:36 | CT Scan Report ---
CT abd pelvis wo con CLINICAL HISTORY: bleeding TECHNIQUE: Helical axial images of the abdomen and pelvis were obtained. Automated dose lowering tech niques and/or adjustment according to patient size were utilized for this exam. This exam was perfor med without intravenous contrast. COMPARISON: Comparison is made to CT abdomen and pelvis 06/29/2021 FINDINGS: Lower chest: Moderately large bilateral pleural effusions are seen. A calcified granuloma is seen in the left lung base. Liver: Unremarkable. No focal lesions are seen. Gallbladder and biliary tree: No calcified gallstones. Normal caliber wall. No intra- or extrahepatic biliary ductal dilation. Pancreas: Redemonstration of prominence and hypodensity of the pancreatic tail with mild surrounding fat stranding. Spleen: Calcifications are noted in the spleen compatible with prior granulomatous disease. Adrenals: Unremarkable. Kidneys and ureters: Bilateral parapelvic cysts are seen. No evidence of hydronephrosis or nephrolith iasis. Bladder: Unremarkable. Reproductive organs: Unremarkable. Bowel: Extensive diverticulosis is seen without evidence of diverticulitis. The appendix is normal. T he stomach is highly distended with wall thickening and hyperdense material which may reflect hemorrh age. There is a moderate hiatal hernia. Previously noted loculated fluid collection about the hiatal hernia is again seen. Lymph nodes Retroperitoneal: Unremarkable. Mesenteric: Unremarkable. Pelvic: Unremarkable. Peritoneum: Normal. No pneumoperitoneum is seen. Vessels: Atherosclerotic calcifications are seen. Abdominal wall: A fat-containing umbilical hernia is seen. Stable appearance of small left rectus she ath hematoma. Bones: Degenerative changes are seen in the spine and hip joints. IMPRESSION: 1. Interval worsening of gastric wall thickening and hyperdense material in the stomach which may re present hemorrhage and/or inflammatory/infectious process. 2. Previous seen noted findings of pancreatitis are again seen, evaluation is limited due to noncont rast technique. 3. Interval slight worsening of bilateral pleural effusions with associated atelectasis. 4. Stable nonspecific loculated fluid adjacent to the moderate hiatal hernia. 5. Diverticulosis without diverticulitis. ACT 112: Negative or not required by law. Electronically signed by: Patrick Geiger M.D. 07/03/2021 10:34 AM
[2021-07-03 11:12] LABS: INR 1.2 (0.9-1.1); Partial Thromboplastin Time 26.6 Seconds (21.0-31.0); Prothrombin Time 12.3 Seconds (9.0-12.0)
--- NOTE | 2021-07-03 11:22 | Communication Note ---
Date of Service: July 03, 2021 GI brief note patient appears to be worsening clinically, HD unstable and hypotensive this morning; had what appeared to be a contained perforation on imaging and endoscopy earlier this week recs: concern for worsening sepsis/perforated viscus, HD unstable; would recommend transfer to tertiary care center for further treatment at this time, may need surgery Stevenson Ma MD Gastroenterology
[2021-07-03] MEDS ORDERED: LORazepam 0.5 MG/1 ML VIAL IV STA (11:42)
[2021-07-03] MEDS ORDERED: LORazepam 2 MG/4 ML VIAL ONE (11:42)
--- NOTE | 2021-07-03 12:54 | Discharge Summary ---
Date of Service July 03, 2021 Principal Diagnosis Recurrent Upper GI Bleed Discharge Exam General: A&Ox3. NAD. Cooperative. HEENT: Atraumatic, normocephalic. Visual acuity and hearing grossly intact. Pupils equal and reactive to light. Pulm: Moderate air movement, -wheezes, -rales, -rhonchi. Symmetrical chest rise. No increase work of breathing. No respiratory distress. On 2 L nasal cannula. Cardiac: RRR, -mrg. Radial pulses intact and symmetrical. Abdominal: Nontender, nondistended, soft. BS present. Skin: Posterior sacral ulcer with foam dressing intact, patient endorses pain at this, improved with positional changes. Extremities: Right clavicular birthmark present. Radial pulse and PT pulses intact and symmetrical. Moves all extremities equally Discharge Data Allergies Allergy/AdvReac Type Severity Reaction Status Date / Time bee venom protein (honey bee) Allergy Severe HAS AN Verified 06/10/21 19:10 EPIPEN FOR REACTIONS latex Allergy Intermediate HIVES Verified 06/10/21 19:10 Iodinated Contrast Media Allergy Mild RASH Verified 06/10/21 19:10 Consultations 06/10/21 20:03 ED Decision to Admit Stat 06/11/21 09:35 Consult Gastroenterology Routine 06/12/21 14:02 Consult Cryptologist Stat 06/13/21 09:54 Consult Psychiatry Routine 06/17/21 10:36 Consult Neurology Routine 06/23/21 07:27 Consult Infectious Diseases Routine 06/29/21 09:37 Consult Palliative Care Routine 07/03/21 11:00 Burn CD for patient Stat Procedures Performed Operation Date: 06/25/21 17:45 Actual Procedures p Esophagogastroduodenoscopy with control of bleeding and evacuation of clots(Not Applicable) - Betsey Mckeon MD Operation Date: 06/27/21 14:00 Actual Procedures p Esophagogastroduodenoscopy(Not Applicable) - Betsey Mckeon MD Ordered Studies 06/10/21 18:04 CT abd pelvis wo con Stat 06/10/21 20:53 MR MRCP Stat 06/12/21 14:39 US gallbladder Urgent 06/12/21 14:42 US venous doppler LE BI Urgent 06/17/21 11:57 CT head/brain wo con Urgent 06/27/21 16:05 CT angio abdomen pelvis w con Urgent CT angio chest wo/w con Urgent 06/29/21 11:18 CT abd pelvis oral and IV con Routine 07/03/21 09:44 CT abd pelvis wo con Stat Hospital Course (1) Sepsis with acute respiratory failure and septic shock: This patient is an 81 y/o WF with a PMHx of Hypothyroidism and recurrent pancreatitis admitted 06/10 with acute pancreatitis (Lipase [id number])-- recurrent issues without obvious cause, suspected idiopathic pancreatitis versus autoimmune-daughter reports that this is patient's 12th episode of pancreatitis in her lifetime Treatment of pancreatitis as below - seen by GI early on in the course of admission and plan was for EUS as OP with Dr. Mclain - Patient did not tolerate clear liquids initially- had increased pain and nausea with multiple bouts of emesis which led to aspiration pneumonitis, hypoxia, as well as rapid atrial fibrillation and profound hypotension requiring emergent DC cardioversion, placement on vasopressors and IV amiodarone, and emergent intubation and was transferred to the ICU on the night of 06/11 -Chest x-ray consistent with aspiration pneumonia and she had bronchoscopy to clear out the lungs by pulmonology- Acute respiratory failure with hypoxia secondary to ARDS plus some volume overload -Was then weaned off all vasopressors and weaned off IV hydrocortisone - Blood cultures x2 positive.1x Enterococcus faecalis and 2x coag negative staph. Sensitivities different between [employer]/S epi. ID consulted. - Discussed w/ pharmacy. Given 2x pos culture + and uptrending WBC treated with Vanc, no improvement in WBC, TTE- as noted, switched to Unasyn as noted. - Procalcitonin peaked at 60 downtrended. - Pulmonary toilet, bowel regimen, continue to follow and antibiotics as otherwise noted - Repeat UA on 06/20 - for infection, and repeat chest x-ray 06/20 shows persistent pneumonia and atelectasis. KUB shows moderate to severe amount of stool burden but no obstruction. remains afebrile. - Abx Course: Cefepime/Flagyl x5 dayss --> Zosyn x3 days with improvement --> Unasyn. Uptrending wbc and 2x + BC as above, vanco started 06/21 --> Unasyn 06/25 - Surveillance cultures drawn. -Echocardiogram performed earlier this admission without evidence of vegetation on the valves, but this was prior to culture positivity Repeat TTE 06/24/21: Normal LV size with EF greater than 70%, hyperdynamic, moderate left atrial dilation, mild right atrial dilation, sclerotic aortic valve without stenosis, mild to moderate tricuspid regurg, normal estimated right ventricular systolic pressure. Compared to prior study right ventricular systolic pressure has improved. 06/24/21-06/25/21: Initially to downgrade to Ampicillin, Unasyn selected for GI coverage 2/2 bleeding. Will require 14 days of amp coverage minimum from - , consider enteric coverage based on clinical improvement with Unasyn and residual WBC on Vanco - Leukocytosis persists, improving while on Unasyn. Constipation improved, a nemia following melana as noted below. ?Biliary sludge -Follow CBC, CMP -Asked nurse to continue to mobilize patient out of bed to chair, encourage use of incentive spirometer -Continue to work on bowel regimen for severe constipation On 06/29, will transfer out of ICU. Rpeated CT scan: Inflammatory stranding surrounding the hernia is noted along with a peripherally enhancing 6.0 x 3.4 cm fluid collection along the right lateral aspect. Loculated fluid versus a contained perforation considered. No pneumoperitoneum Will see if radiology can do an intervention to remove that fluid. will monitor for GI bleed. patient may need to be transferred to tertiary center for surgery/IR. on 07/02 advanced her to full liquid diet. replenished her electrolytes. will start patient on PPN to help with her nutrition. will recheck electrolytes in AM. Acute blood loss anemia from Upper Gi Bleed On 07/03 Patient was found to be hypotensive. Patient was found to have a hemoglobin below 7. Given recurrent GI bleeds and possible need for interventional radiology. Outside facilities were called, due to the nature of the pandemic, hospitals are full. [facility] had bed and patient will be life flighted to facility. Patient is agreeable to transfer. Patient's is agreeable. (2) Anemia: 06/25 morning patient with large bowel movement, followed by acute hemoglobin drop from 10.0-6.9. Repeat hemoglobin 6.3 Patient ordered 2 units packed red blood cells for transfusion. Pt kris appropriately to 8.7 06/25: active bleeding on exam, no initial AM melena, BUN acutely elevated from 23-53. Large melanic BM in PM. Seen by GI, large gastric ulcer nonbleeding with clot present. 5x clips placed. Post-op drop to 7.4, trended 06/27: Patient with acute hemoglobin drop overnight from 7.3-5.2, transfused with 3 units with appropriate rise in posttransfusion hemoglobin. GI reconsult ed, pending evaluation. Blood pressure initially hypotensive, 115/51 following transfusion without tachycardia. Morning metoprolol had been held for hypotension. - Continue PPI IV for 72 hours Eliquis held. Discussed clot vs bleeding risk with pt at bedside - Patient will be on Strict NPO on 06/28 -start a clear diet on 06/29 -hemoglobin has been stable, (3) Encephalopathy acute: Improved, not yet at baseline but improving Patient with anxiety/agitation and self extubated while in ICU Initially on Precedex drip, was minimally interactive and improved 06/16 and 06/17 with Narcan. 06/18 did well, 06/19 required IV Haldol due to computer consultant attempts to get out of bed repeatedly with difficult redirecting which improved during daytime, and 06 20 did well through the night with an evening dose of Zyprexa. Suspect acute encephalopathy due to aspiration pneumonia with additional hospital delirium 06/17 CTH: No acute findings EEG without epileptiform activity, mild encephalopathy during admission Continue pneumonia/sepsis and constipation treatment as otherwise noted Passed speech evaluation for minced and moist Tolerating p.o. well Continue at bedtime Zyprexa (4) Atrial fibrillation with RVR: - Likely sepsis-driven due to catecholamine release -TTE: Hyperdynamic LV, severe LVH, elevated RVSP at 50-60 mmHg -With profound hypotension as above associated with rapid atrial fibrillation requiring urgent DC cardioversion earlier in her hospital stay and then again re quiring phenylephrine. Pressors d/merissa -Amiodarone drip converted to p.o. amiodarone 200 mg once daily Eliquis as noted Remains in sinus rhythm, although with frequent ectopy Continue Toprol 75 mg twice daily, hold for hypotension see above under anemia Optimize potassium, magnesium (5) Hypothyroid: TSH here normal at 1.9 Continue levothyroxine (6) Hypernatremia: -Improved following D5W infusion and encouragement of free water Normalized, 144 on 06/21 -Encourage p.o. intake of free water - Follow BMP (7) Acute pancreatitis: With a history of recurrent pancreatitis x12. Has not had an episode in about 2 years Previously had gallbladder sludge but patient had declined to have cholecystectomy several years ago -Gallbladder ultrasound here again with gallbladder sludge - Pt tx with extensive abx as above, and continued to have residual WBC count on Vanco monotherapy which quickly dropped with Unasyn tx. ?GB involvement and need for enteric coverage - She had EUS which showed pancreatic head cyst in 2018 but then did not return for follow-up EUS at [facility] as planned 1 year later. -CT of A/P: pancreatitis without cyst/pseudocyst and ductal dilation - LFT's initially WNL and then only mild elevation in AST after that, total bilirubin normal - MRCP: pancreatitis without cyst/pseudocyst/abscess or ductal dilation - Triglyceride level WNL: 28 -No evidence of hypercalcemia - Patient does not drink ETOH-confirmed with family - Gi: idiopathic versus autoimmune vs related to cyst? Possibly secondary to gallbladder sludge - Also had pancreatic cyst seen on EUS in 2018-this needs repeat EUS for follow- up in 4 weeks after discharge Patient without abdominal pain, tenderness 06/20 and 06/21 - GI saw patient here and plans for outpatient EUS 1 month after discharge (8) Hiatal hernia: Large hiatal hernia with approximately half the stomach located in the thoracic cavity noted on CT abdomen/pelvis-this puts her at increased risk for aspiration On IV Protonix earlier in admission, converted to lansoprazole 06/25 acute anemia with rise in BUN? Blood loss, patient made n.p.o. and placed back on PPI drip (9) Aspiration pneumonia: -As above, gradually downtrending oxygen requirements, mentation improving, on 2 L 06/25 -Chest x-ray with left lower lobe collapse and pleural effusion but slightly improved from previous -Pro-Sanjay initially elevated, down trended, repeat pending -Leukocytosis as noted above -With positive blood cultures as above -Initially on cefepime and metronidazole x5 days, then improved more after starting IV Zosyn x3 days, now narrowed down to Unasyn on 06/19-last day of treatment for pneumonia will be 06/23. Patient completed 8 days of anaerobe coverage respiration pneumonia, but requires ongoing treatment as above. Blood cultures positive in multiple sets for staph epidermidis -Monitor chest x-ray and oxygenation-repeat chest x-ray 06/20 similar to slightly improved aeration on the left -Initially had NG tube for enteral feeds-discontinued this on 06/20 -Speech therapy seen and cleared for minced and moist diet, thin liquids with no straws -Continue incentive spirometry and flutter valve as tolerated -Aspiration precautions (10) CRUZ (acute kidney injury): With creatinine elevated to 1.68 at peak and normalized Likely secondary to ATN from hypotension and septic shock BMP daily, continue to follow (11) Fever: As above, now resolved (12) Hypercholesterolemia: Holding home krill oil (13) Hypertension: With hypotension as above now while in atrial fibrillation which is now resolved, became hypertensive in a sinus rhythm Now on metoprolol for previous rapid atrial fibrillation. Metoprolol increased as above. Not on medications at home for this (14) Macrocytosis: B12 and folate normal No history of alcohol use Synthetic liver function seems normal Question if has early MDS? Follow as an outpatient (15) Septicemia: As above with positive blood cultures See ID recommendations above (16) Hypophosphatemia: -Repeat pending (17) Edema: - Previously with anasarca but intravascularly volume depleted with hypernatremia. IMproving. -Resume diuretics as tolerated by blood pressure -Improve nutrition and albumin (18) Sacral decubitus ulcer, stage III: continue wound care, compressive dressing, rotate in bed, out of bed to chair as tolerated DVT prophylaxis Eliquis as noted, held 06/25 for bleeding Total Time Total Time Spent Total Time Spent (In Minutes): 60 Discharge Plan Discharge Items Patient Disposition: Transfer Acute Care Hospital Reason For Visit: PANCREATITIS Discharge Diagnosis: acute GI bleed Activity: Resume your previous activity Non-emergency contact: Primary Care Provider Call non-emergency contact if: you have any medication questions Follow-up/Referrals: Rob Mayers MD [Primary Care Provider] - Diet: Nothing by Mouth Addtl Attending Provider Instructions: transferred to outside hospital Pending Studies at Discharge: No Stand-Alone Forms: My [facility] [place] Skilled Items Patient informed of condition?: No DNR: No Discharge Level of Care: Other Communicable Disease: No Discharge Prognosis: Deteriorating Lines: Peripheral IV and US Guided Peripheral IV Urinary Catheter: No Medications and DC Order Prescriptions: New furosemide 10 mg/mL Solution 40 mg IV DAILY Qty: 30 RF: 0 amiodarone 200 mg Tablet 200 mg PO QAM Qty: 30 RF: 0 sucralfate 100 mg/mL Suspension 1 g PO QID Qty: 30 RF: 0 potassium chloride 20 mEq Tablet,Er Particles/Crystals 20 meq PO BID Qty: 30 RF: 0 pantoprazole 40 mg Tablet,Delayed Release (Dr/Ec) 40 mg PO BID Qty: 30 RF: 0 olanzapine 5 mg Tablet,Disintegrating 2.5 mg PO HS Qty: 10 RF: 0 Continued metronidazole 0.75 % cream 1 appln TOP DAILY PRN (Reason: ROSACEA) RF: 0 levothyroxine [Synthroid] 88 mcg tablet 88 mcg PO QAM Qty: 90 RF: 3 cyanocobalamin (vitamin B-12) 1,000 mcg tablet extended release 1,000 mcg PO QAM RF: 0 Azo Cranberry 250 mg tablet,chewable 250 mg PO DAILY Qty: 90 RF: 0 cholecalciferol (vitamin D3) 125 mcg (5,000 unit) capsule 125 mcg PO DAILY Qty: 30 RF: 0 echinacea 400 mg capsule 400 mg PO DAILY Qty: 90 RF: 0 lutein-zeaxanthin 25-5 mg capsule 1 cap PO DAILY Qty: 30 RF: 0 coenzyme Q10 200 mg capsule 200 mg PO DAILY Qty: 30 RF: 0 ascorbate calcium (vitamin C) 500 mg tablet 500 mg PO DAILY Qty: 30 RF: 0 krill oil 500 mg capsule 500 mg PO DAILY Qty: 30 RF: 0 melatonin 5 mg capsule 10 mg PO HS Qty: 30 RF: 0 magnesium 250 mg tablet 325 mg PO DAILY RF: 0 Restasis 0.05 % dropperette 1 drp OPB Q12H RF: 0 epinephrine [EpiPen] 0.3 mg/0.3 mL auto-injector 0.3 mg IM DIRECTED PRN (Reason: Allergic Reaction) RF: 0 multivitamin with minerals tablet 1 tab PO QAM RF: 0 Discharge Orders: Discharge Order (Routine); Ordered 07/03/21 Ordered By: Antonio Rao Admission Data Admit Date/Time: 06/10/21 21:34 Attending Provider: Antonio Rao Admit Provider: Amari Giraldo Primary Care Provider: Rob Mayers Other Providers: Niraj Browne ; [facility] ; [place],[facility] ; [facility] ; Amari Giraldo ; Stevenson Ma ; Parag Hsieh ; Teresa Villalpando ; Karis Worrell ; Ines Cruz ; Soham Fan ; Arsenio Moya ; Faustino Barber ; Jeanne Nolan ; Darryl Serrano I. ; Renato Fu II ; Kari Morales ; Shant Sousa ; Damian Galvan ; Bertha Heredia ; Cuca Bustos Other Interventions: Discharge Summary Assessment (RN) Last Done: 07/03/21 11:55 Coding Level of Care Code D/C DAY MANAGEMENT >30 MINS Diagnoses Sepsis with acute respiratory failure and septic shock A41.9; R65.21; J96.00 Anemia D64.9 Encephalopathy acute G93.40 Atrial fibrillation with RVR I48.91 Hypothyroid E03.9 Hypernatremia E87.0 Acute pancreatitis K85.90 Acute pancreatitis complication: unspecified Pancreatitis type: unspecified pancreatitis type Hiatal hernia K44.9 Aspiration pneumonia J69.0 CRUZ (acute kidney injury) N17.9 Fever R50.9 Hypercholesterolemia E78.00 Hypertension I10 Hypertension type: essential hypertension Macrocytosis D75.89 Septicemia A41.9 Hypophosphatemia E83.39 Edema R60.9 Sacral decubitus ulcer, stage III L89.153
--- NOTE | 2021-07-04 09:50 | Electrocardiogram Report ---
Test Reason : Blood Pressure : / mmHG Vent. Rate : 081 BPM Atrial Rate : 081 BPM P-R Int : 142 ms QRS Dur : 086 ms QT Int : 364 ms P-R-T Axes : 030 026 -60 degrees QTc Int : 422 ms Poor data quality, interpretation may be adversely affected Sinus rhythm with Premature atrial complexes Nonspecific ST abnormality Abnormal ECG When compared with ECG of 16-JUN-2021 19:15, No significant change Confirmed by Juan Ashraf ([id number]) on 07/04/2021 9:49:59 AM Referred By: REFERRED SELF Confirmed By:Juan Ashraf
== END 2021-07-03 12:00 | disposition short-term general hospital (02) | DRG 438 ==
LOC: ED 17:54 → 2W 21:34 → SUATTDRO 21:34 → 2W 22:43 → 1E 06-12 12:17